=== PATIENT | male | born 1960 | race Caucasian/White ===

== ENCOUNTER 2018-05-07 14:49 | Inpatient (IN) | payer BC, SELFPAY ==
[2018-05-07 14:50] VITALS: BP 137/76; PULSE 108; RESP 16; TEMP 36.2; BMI 38.5
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
[2018-05-07] MEDS: 0.9% Normal Saline 1,000 ML 1000 ML IV (15:52)
[2018-05-07 15:58] LABS: Absolute Lymphocyte Count 1.51 X10^3/ul (0.83-4.51); Absolute Neutrophil Count 6.3 X10^3/uL (2.0-7.7); Basophil# 0.04 X10^3/uL; Basophil% 0.5 % (0-1); Eosinophil# 0.08 X10^3/uL; Hematocrit 41.8 % (40-54); Hemoglobin 13.7 g/dl (13.0-16.5); Lymphocyte # 1.51 X10^3/ul (4.0); Mean Corp Hgb Conc 32.8 g/gl (32-36); Mean Corpuscular Hgb 30.4 pg (27.0-32.0); Mean Corpuscular Volume 92.7 fL (80-94); Mean Platelet Vol. 9.5 fl (6.2-12.0); Monocyte# 0.51 X10^3/uL; Monocyte% 6.1 % (0-10); Neutrophil # 6.26 X10^3/uL (2.7-7.7); Neutrophil % 74.3 % (47-70); Platelet Count 225 K/mm3 (150-450); RBC Distribution Width CV 12.6 % (11.6-14.6); RBC Distribution Width SD 42.7 fl (35.1-43.9); Red Blood Count 4.51 M/mm3 (4.6-6.2); White Blood Count 8.4 K/mm3 (4.4-11.0)
[2018-05-07 15:59] LABS: POSITIVE COUNT NO; POSITIVE DIFFERENTIAL NO; POSITIVE MORPHOLOGY NO
[2018-05-07 16:10] LABS: Anion Gap 9 (5-15); BUN 12 mg/dL (7-18); BUN/Creat Ratio 11.1 RATIO (10-20); Calcium,Total 8.7 mg/dL (8.5-10.1); Chloride 105 mmol/L (98-107); Creatinine, Serum 1.08 mg/dL (0.70-1.30); EST Glomerular Filtration Rate 75 mL/min (>60); Erythrocyte Sedimentation Rate 67 mm/hr (0-20); Est Glom Filt Rate - Afr Amer 91 mL/min (>60); Estimated Creatinine Clearance 74.77 ml/min; Glucose 198 mg/dL (74-106); Potassium 4.3 mmol/L (3.5-5.1); Sodium Level 141 mmol/L (136-145)
[2018-05-07 16:13] LABS: Lactic Acid 1.5 mmol/L (0.4-2.0)
[2018-05-07 17:54] VITALS: BP 159/88; PULSE 68; RESP 18; O2SAT 98
--- NOTE | 2018-05-07 18:00 | NURSING ---
DR ALBERT IN SEEING PT. NO ORDERS FOR DRSG FOR NOW. STATED, PABLO. ITS DRY GANGRENE TALKING WITH PT AND REGARDING REAL NEED OF PROB TOE AMPUTATION. NO DRNG TO RT LAT PINKY TOE OR OTHER TO WOUNDS.
--- NOTE | 2018-05-07 18:08 | NURSING ---
aware per charge nurse ritika BRISENO and animal control supervisor destini venous duplex not done as only available until 1300.
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
[2018-05-07 18:25] VITALS: BMI 38.2; BMI 38.3
[2018-05-07 19:07] VITALS: BP 157/94; PULSE 98; RESP 20; TEMP 37.2; O2SAT 99
[2018-05-07 19:16] LABS: Hemoglobin A1c 10.1 % (4.2-6.3)
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
--- NOTE | 2018-05-07 20:57 | PHA.PHARE_ITS ---
Consult Pharmacy has been consulted to manage selected antiobiotic: Vancomycin Type of Consult: New start Suspected Infection: Skin/Soft tissue Labs: Sodium 141 mmol/L (136-145) 05/07/18 15:40 Potassium 4.3 mmol/L (3.5-5.1) 05/07/18 15:40 Chloride 105 mmol/L (98-107) 05/07/18 15:40 Carbon Dioxide 27.0 mmol/L (21.0-32.0) 05/07/18 15:40 Anion Gap 9 (5-15) 05/07/18 15:40 BUN 12 mg/dL (7-18) 05/07/18 15:40 Creatinine 1.08 mg/dL (0.70-1.30) 05/07/18 15:40 Est GFR (MDRD) Af Amer 91 mL/min (>60) 05/07/18 15:40 Est GFR (MDRD) Non-Af 75 mL/min (>60) 05/07/18 15:40 BUN/Creatinine Ratio 11.1 RATIO (10-20) 05/07/18 15:40 Glucose 198 mg/dL (74-106) H 05/07/18 15:40 Weight used for dosin.3 kg Estimated Creatinine Clearance: 74.77 Goal Trough: 10-15 mcg/mL Pharmacy Plan for Drug Dosing: Pharmacy Service will continue to monitor and adjust dosing as required. Medications Ampicillin Sodium/Sulbactam (Sodium 3 gm/ Sodium Chloride) 112 mls @ 150 mls/ hr IV Q6 HELENA Vancomycin HCl 1,250 mg/ (Sodium Chloride) 275 mls @ 167 mls/hr IV Q12H HELENA Discontinued Medications Vancomycin HCl 1,500 mg/ (Sodium Chloride) 530 mls @ 250 mls/hr IV X1 ONE Stop: 05/07/18 19:58 Last Admin: 05/07/18 18:20 Dose: 250 mls/hr Follow-Up Labs: Trough Vancomycin Labs to be done on [date and time ordered]: 05/09 @ 0662
[2018-05-07] MEDS: 0.9% Normal Saline 1,000 ML 100 ML IV (21:37)
[2018-05-07 21:55] LABS: Bedside Glucose 150 mg/dL (70-110)
[2018-05-07] MEDS: Insulin Lispro 100 UNIT/ML INSULN.PEN SC (22:14)
[2018-05-08] VITALS: BP 136/68; PULSE 86; RESP 18; TEMP 37.3; O2SAT 99
[2018-05-08 03:51] LABS: Bedside Glucose 151 mg/dL (70-110)
[2018-05-08 06:00] VITALS: BP 144/81; PULSE 87; RESP 16; TEMP 36.9; O2SAT 98
[2018-05-08 06:13] LABS: Absolute Lymphocyte Count 1.56 X10^3/ul (0.83-4.51); Absolute Neutrophil Count 4.5 X10^3/uL (2.0-7.7); Basophil# 0.03 X10^3/uL; Basophil% 0.4 % (0-1); Eosinophil# 0.16 X10^3/uL; Eosinophils% 2.3 % (0-5); Hematocrit 42.6 % (40-54); Hemoglobin 13.9 g/dl (13.0-16.5); Lymphocyte # 1.56 X10^3/ul (4.0); Lymphocyte % 22.7 % (19-41); Mean Corp Hgb Conc 32.6 g/gl (32-36); Mean Corpuscular Hgb 30.3 pg (27.0-32.0); Mean Corpuscular Volume 92.8 fL (80-94); Mean Platelet Vol. 9.2 fl (6.2-12.0); Monocyte# 0.56 X10^3/uL; Monocyte% 8.2 % (0-10); Neutrophil # 4.54 X10^3/uL (2.7-7.7); Neutrophil % 66.1 % (47-70); Platelet Count 226 K/mm3 (150-450); RBC Distribution Width CV 12.6 % (11.6-14.6); Red Blood Count 4.59 M/mm3 (4.6-6.2); White Blood Count 6.9 K/mm3 (4.4-11.0)
[2018-05-08 06:24] LABS: POSITIVE COUNT NO; POSITIVE DIFFERENTIAL NO; POSITIVE MORPHOLOGY NO
[2018-05-08 06:50] LABS: Anion Gap 7 (5-15); BUN 11 mg/dL (7-18); Calcium,Total 8.5 mg/dL (8.5-10.1); Chloride 106 mmol/L (98-107); Creatinine, Serum 0.78 mg/dL (0.70-1.30); EST Glomerular Filtration Rate 109 mL/min (>60); Est Glom Filt Rate - Afr Amer 132 mL/min (>60); Estimated Creatinine Clearance 103.53 ml/min; Glucose 163 mg/dL (74-106); Potassium 4.2 mmol/L (3.5-5.1); Sodium Level 141 mmol/L (136-145)
[2018-05-08 07:10] LABS: Bedside Glucose 168 mg/dL (70-110)
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
[2018-05-08] MEDS: Insulin Lispro 100 UNIT/ML INSULN.PEN SC ×4 (08:49→18:12)
[2018-05-08 08:50] LABS: Bedside Glucose 232 mg/dL (70-110)
--- NOTE | 2018-05-08 09:18 | NURSING ---
explained purpose of lovenox, lisinipril and pepcid, pt refusing all. states he does not like blood thinners and does not believe in bp meds. dr narvaez aware
[2018-05-08 09:19] VITALS: BP 135/85; PULSE 95; RESP 18; TEMP 37.2; O2SAT 95
[2018-05-08] MEDS: 0.9% Normal Saline 1,000 ML 100 ML IV (10:52)
[2018-05-08 11:21] VITALS: O2SAT 95
[2018-05-08 12:45] LABS: Bedside Glucose 253 mg/dL (70-110)
--- NOTE | 2018-05-08 13:14 | PCA ---
PT OUT WALKING IN THE [place]
--- NOTE | 2018-05-08 13:56 | CASEMGMT ---
KIKA ROD Assessment completed. See Link. -Pt to have further testing, possible surgery on foot. Is noncompliant with diabetes and nonweight bearing on toes. Discussed PT/OT to assist with teaching of ambulation and may recommend assistive device with ambulation. Pt very irritated with any mention of DME. RN VIOLA let pt know that CM is available if there are any dc needs that arise. appears to be willing to provide assistance at home.
[2018-05-08 14:39] VITALS: BP 139/81; PULSE 75; RESP 16; TEMP 36.8; O2SAT 99
[2018-05-08] MEDS: Insulin Lispro 100 UNIT/ML INSULN.PEN 10 UNIT SC ×2 (14:45→18:11)
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
--- NOTE | 2018-05-08 16:39 | PCA ---
therapy working with pt
[2018-05-08 17:41] LABS: M R Staph aureus DNA By PCR Negative (Negative); Probe Check PASS; Specimen Processing Control PASS; Staph aureus DNA By PCR POSITIVE (Negative)
[2018-05-08 18:26] LABS: Bedside Glucose 233 mg/dL (70-110)
[2018-05-08 22:43] VITALS: BP 128/69; PULSE 79; RESP 18; TEMP 37.1; O2SAT 96
[2018-05-08 23:06] LABS: Bedside Glucose 104 mg/dL (70-110)
[2018-05-09] MEDS: 0.9% Normal Saline 1,000 ML 100 ML IV (01:33)
[2018-05-09 04:43] VITALS: BP 128/69; PULSE 82; RESP 16; TEMP 37.1; O2SAT 98
--- NOTE | 2018-05-09 05:37 | NURSING ---
Rewrapped dressings on feet. Gave pt. surgical shoes.
[2018-05-09 06:16] LABS: Anion Gap 4 (5-15); BUN 12 mg/dL (7-18); BUN/Creat Ratio 15.4 RATIO (10-20); Calcium,Total 8.8 mg/dL (8.5-10.1); Chloride 106 mmol/L (98-107); Creatinine, Serum 0.78 mg/dL (0.70-1.30); EST Glomerular Filtration Rate 110 mL/min (>60); Est Glom Filt Rate - Afr Amer 132 mL/min (>60); Estimated Creatinine Clearance 103.53 ml/min; Glucose 148 mg/dL (74-106); Potassium 4.2 mmol/L (3.5-5.1); Sodium Level 139 mmol/L (136-145)
[2018-05-09 06:19] LABS: Vancomycin, Trough Level 7.2 ug/mL (5.0-15.0)
[2018-05-09 06:36] LABS: Absolute Lymphocyte Count 2.15 X10^3/ul (0.83-4.51); Absolute Neutrophil Count 4.3 X10^3/uL (2.0-7.7); Basophil# 0.05 X10^3/uL; Basophil% 0.7 % (0-1); Eosinophils% 2.8 % (0-5); Hematocrit 43.4 % (40-54); Hemoglobin 14.1 g/dl (13.0-16.5); Lymphocyte # 2.15 X10^3/ul (4.0); Lymphocyte % 30.2 % (19-41); Mean Corp Hgb Conc 32.5 g/gl (32-36); Mean Corpuscular Hgb 30.1 pg (27.0-32.0); Mean Corpuscular Volume 92.5 fL (80-94); Mean Platelet Vol. 9.7 fl (6.2-12.0); Monocyte# 0.44 X10^3/uL; Monocyte% 6.2 % (0-10); Neutrophil # 4.26 X10^3/uL (2.7-7.7); Neutrophil % 59.7 % (47-70); Platelet Count 243 K/mm3 (150-450); RBC Distribution Width CV 12.9 % (11.6-14.6); RBC Distribution Width SD 42.9 fl (35.1-43.9); Red Blood Count 4.69 M/mm3 (4.6-6.2); White Blood Count 7.1 K/mm3 (4.4-11.0)
[2018-05-09 06:37] LABS: POSITIVE COUNT NO; POSITIVE DIFFERENTIAL NO; POSITIVE MORPHOLOGY NO
[2018-05-09 07:25] VITALS: O2SAT 95
[2018-05-09 07:41] LABS: Bedside Glucose 158 mg/dL (70-110)
[2018-05-09 07:43] VITALS: BP 125/71; PULSE 71; RESP 16; TEMP 36.7; O2SAT 97
[2018-05-09] MEDS: Insulin Lispro 100 UNIT/ML INSULN.PEN 10 UNIT SC ×2 (08:02→12:28)
[2018-05-09] MEDS: Insulin Lispro 100 UNIT/ML INSULN.PEN SC ×2 (08:02→12:28)
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
--- NOTE | 2018-05-09 12:27 | PCM.DC.POD ---
Discharge Activity: - - Must avoid complete weight bearing and limit to heel only per Dr. Craft request. Recommend routine elevation both lower extremities above your heart and when seated. Continue dressing care per Dr. Craft direction. Weight Bearing Status: Partial weight bearing Keep extremity elevated above heart level: Legs Call your doctor if your incision/area has: Continuous Slow Oozing, Sudden Increased Bleeding, Increased Pain/ Swelling, Increased Redness, Foul Smelling Discharge, Swelling at the incision site Call your doctor if you observe: Fever of 101 or Higher, Inability to urinate, Inability to have a bowel movement, Shortness of breath, Dizziness, Chest pain, Uncontrolled pain Additional Dressing/Incision Instructions:: [place] betadine solution to right 5th toe and in between 4th and 5th toes on the right foot. [place] betadine solution to all wound site on both feet every day, apply overlying gauze dressing. Do not get wet otherwise, must keep dry. Instructions: What Is Type 2 Diabetes?, How to Check Your Blood Sugar, Diabetes: Treating Minor Foot Infections, Diabetes: Treating Severe Foot Infections, Using Injected Insulin, Types of Insulin, Healthy Meals for Diabetes, Diabetes: Understanding Carbohydrates, Diabetes: Keeping Feet Healthy, Diabetes: Inspecting Your Feet, Why Do You Smoke?, Planning to Quit Smoking, Getting Support for Quitting Smoking, Coping with Smoking Withdrawal, Discharge Instructions for Diabetic Foot Ulcers, Your Diabetes Foot Care Program Allergies/Adverse Reactions: Allergies Penicillins [PCN] Allergy (Verified 05/07/18 18:48) Unknown his mom thinks he is allergic. but never had it. Medications to take at Discharge Amox/Clavulanate Tablet [Augmentin Tablet] 875 mg PO Q12H #20 tab 05/09/18 Aspirin [Aspirin, Baby] 81 mg PO DAILY@0800 #30 tab.chew 05/09/18 Doxycycline 100 mg PO BID #20 cap 05/09/18 Insulin Glargine [Lantus SoloStar Pen] 55 units SC BID #1 pen 05/09/18 Insulin Lispro [Humalog KwikPen] 10 unit SC TIDAC #1 insuln.pen 05/09/18 Insulin Lispro [Humalog KwikPen] See Protocol SC ACHS #1 insuln.pen 05/09/18 Nutritional Supplement [Tripp - ORANGE FLAVOR] 1 packet PO BIDCM #60 packet 08/21/18 Oxycodone [Oxyir] 5 mg PO Q4H PRN PRN 5 Days #30 tablet 05/09/18 The following prescriptions were given: Oxycodone [Oxyir] 5 mg PO Q4H PRN PRN 5 Days #30 tablet PRN Reason: Moderate Pain (pain scale 4-5) Amox/Clavulanate Tablet [Augmentin Tablet] 875 mg PO Q12H #20 tab Aspirin [Aspirin, Baby] 81 mg PO DAILY@0800 #30 tab.chew Insulin Lispro [Humalog KwikPen] 10 unit SC TIDAC #1 insuln.pen Insulin Lispro [Humalog KwikPen] See Protocol SC ACHS #1 insuln.pen Doxycycline 100 mg PO BID #20 cap Insulin Glargine [Lantus SoloStar Pen] 55 units SC BID #1 pen Nutritional Supplement [Tripp - ORANGE FLAVOR] 1 packet PO BIDCM #60 packet Primary Care Physician: OLY WILLOUGHBY [Primary Care Provider] - Please follow up with your Primary Care Physician in: Follow-up within 3-5 days to review admission. Test Results: Test results from this visit will be discussed in further detail at your follow-up appointment, if applicable. Please Follow Up With: Oly Craft DPM - Office is located at [address] [place] [address], [place] [address], [place], [place] When: Follow-up with Dr. Craft on 05/15/18 in his office. Please Follow Up With: Dennis Pisano DPM When: Follow-up in the [facility] Care Center on 05/17/18 with podiatry. Please Follow Up With: France Kingston NP-C When: Please contact office to arrange follow-up, prefer within 3-5 days. Proposed Discharge Date: 05/09/18
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
[2018-05-09 13:02] LABS: Bedside Glucose 237 mg/dL (70-110)
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
--- NOTE | 2018-05-09 20:34 | LEAS ---
Arterial Study - Arterial Study Arterial Study: This is a 57-year-old male with a history of diabetes mellitus and smoking. He presents with a diabetic foot infection and gangrene of his toes. Suspecting the presence of atherosclerotic peripheral arterial occlusive disease, the patient was brought to the noninvasive vascular laboratory at this time for the purpose of bilateral noninvasive lower extremity arterial assessment. Doppler signal assessment was used to evaluate the pulses at ankle level bilaterally. On the right, the posterior tibial pulse was triphasic. The right dorsalis pedis pulse was biphasic. The left posterior tibial and dorsalis pedis pulses were triphasic. Segmental limb pressures were obtained bilaterally. The right ankle pressure, as determined by posterior tibial pulse, could not be determined due to the noncompressibility of the vasculature. The right ankle pressure, as determined by dorsalis pedis pulse, was measured at 165 mmHg. The right digital pressure was measured at 78 mmHg. The left ankle pressure, as determined by posterior tibial pulse, could not be determined due to the noncompressibility of the vasculature. The left ankle pressure, as determined by dorsalis pedis pulse, was measured at 164 mmHg. The left digital pressure was measured at 114 mmHg. Pulse-volume recordings were obtained bilaterally and segmentally. Waveform amplitudes appeared to be satisfactory at low thigh, calf, and ankle levels bilaterally. The right digital waveform was mildly diminished. The left digital waveform was normal. Resting ankle-brachial indices were calculated bilaterally. The resting right ankle-brachial index was calculated to be 1.15. The resting left ankle-brachial index was calculated to be 1.14. Digital-brachial indices were calculated bilaterally. The right digital-brachial index was calculated to be 0.54. The left digital-brachial index was calculated to be 0.79. Impression: Based upon the findings of this resting noninvasive lower extremity arterial study, arterial perfusion appears to be normal to ankle level bilaterally. Triphasic and biphasic waveforms were noted at ankle level on the right. Triphasic waveforms were noted at ankle level on the left. Resting ankle-brachial indices were bilaterally normal. The right digital-brachial index was mildly diminished, suggestive of mild, distal, small-vessel arterial occlusive disease in the right lower extremity. The left digital-brachial index is normal, suggesting relatively normal arterial perfusion at digital level in the left lower extremity.
== END 2018-05-09 12:55 | disposition home or self-care (01) | DRG 935 ==
LOC: ED 15:55 → MS3 18:06
PROVIDERS: Podiatrist; Admitting Provider Family Medicine; Emergency Provider Emergency Medicine; Family Provider Hospitalist; PCP Hospitalist; Visit Provider Family Medicine
DX: T25.031A Burn of unspecified degree of right toe(s) (nail), initial encounter (principal); I96 Gangrene, not elsewhere classified; T25.032A Burn of unspecified degree of left toe(s) (nail), initial encounter; T79.9XXA Unspecified early complication of trauma, initial encounter; X19.XXXA Contact with other heat and hot substances, initial encounter; Y92.818 Other transport vehicle as the place of occurrence of the external cause; X03.8XXA Other exposure to controlled fire, not in building or structure, initial encounter; Y92.833 Campsite as the place of occurrence of the external cause; E11.42 Type 2 diabetes mellitus with diabetic polyneuropathy; E11.65 Type 2 diabetes mellitus with hyperglycemia; Z79.4 Long term (current) use of insulin; E66.9 Obesity, unspecified; Z68.38 Body mass index [BMI] 38.0-38.9, adult; E11.628 Type 2 diabetes mellitus with other skin complications; L03.031 Cellulitis of right toe; R03.0 Elevated blood-pressure reading, without diagnosis of hypertension; Z72.0 Tobacco use
CPT/HCPCS: 36415; 73630; 80048; 80202; 82962; 83036; 83605; 83735; 85025; 85652; 86140; 87040; 87070; 87075; 87077; 87186; 87205; 87640; 93923; 93971; 97161; 97802; 99282; J7030; J7040; J7050; A4216; J0295

== ENCOUNTER 2018-05-18 10:19 | Outpatient (RCR) | payer BC, SELFPAY ==
[2018-05-18 11:00] VITALS: BP 152/88; PULSE 86; RESP 18; TEMP 36.1
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
== END 2018-05-19 23:59 ==
LOC: WC 10:19
PROVIDERS: Family Provider Family Medicine; PCP Family Medicine; Visit Provider Podiatrist
DX: E11.621 Type 2 diabetes mellitus with foot ulcer (principal); E11.42 Type 2 diabetes mellitus with diabetic polyneuropathy; E11.51 Type 2 diabetes mellitus with diabetic peripheral angiopathy without gangrene; L97.522 Non-pressure chronic ulcer of other part of left foot with fat layer exposed; Z91.19 Patient's noncompliance with other medical treatment and regimen; E11.65 Type 2 diabetes mellitus with hyperglycemia; F17.290 Nicotine dependence, other tobacco product, uncomplicated
CPT/HCPCS: 11042; 99205; 99213; G0463

== ENCOUNTER → 2018-06-01 14:04 | Outpatient (CLI) | payer BC, SELFPAY ==
--- NOTE | 2018-06-01 14:12 | RAD_ITS ---
STUDY: X-RAY - RIGHT FOOT CLINICAL: Pain and burning to toes. TECHNIQUE: 3 view(s) of the foot. COMPARISON: Radiographs . FINDINGS: There is a plantar calcaneal enthesophyte. There is pes planus. Normal visualized subtalar, talonavicular, calcaneocuboid, tarsal and tarsometatarsal articulations. Normal metatarsi. Normal metatarsophalangeal joint of the great toe. Normal tibial and fibular sesamoid bones. Normal interphalangeal joint of the great toe. Normal phalanges of the great toe. Normal second through fifth metatarsophalangeal joints. There is mild joint space narrowing of the second distal interphalangeal joint. There is vascular calcification. RAD/Foot min 3 Views IMPRESSION: Mild arthrosis of the second distal interphalangeal joint. Vascular calcification. No interval change. Electronically Signed: Torrey Joshua MD at 16:00 EDT Tel , Service support ,
[2018-06-01 15:33] LABS: Absolute Lymphocyte Count 1.47 X10^3/ul (0.83-4.51); Absolute Neutrophil Count 7.2 X10^3/uL (2.0-7.7); Basophil# 0.02 X10^3/uL; Basophil% 0.2 % (0-1); Eosinophil# 0.03 X10^3/uL; Eosinophils% 0.3 % (0-5); Hematocrit 42.2 % (40-54); Hemoglobin 13.9 g/dl (13.0-16.5); Lymphocyte # 1.47 X10^3/ul (4.0); Lymphocyte % 15.7 % (19-41); Mean Corp Hgb Conc 32.9 g/gl (32-36); Mean Corpuscular Hgb 30.2 pg (27.0-32.0); Mean Corpuscular Volume 91.7 fL (80-94); Mean Platelet Vol. 9.9 fl (6.2-12.0); Monocyte# 0.64 X10^3/uL; Monocyte% 6.8 % (0-10); Neutrophil # 7.16 X10^3/uL (2.7-7.7); Neutrophil % 76.6 % (47-70); Platelet Count 205 K/mm3 (150-450); White Blood Count 9.4 K/mm3 (4.4-11.0)
[2018-06-01 15:42] LABS: POSITIVE COUNT NO; POSITIVE DIFFERENTIAL NO; POSITIVE MORPHOLOGY NO
[2018-06-01 15:44] LABS: BUN 15 mg/dL (7-18); Creatinine, Serum 0.79 mg/dL (0.70-1.30); Glucose 113 mg/dL (74-106)
[2018-06-01 15:45] LABS: ALB/GLOB Ratio 0.9 RATIO (0.9-2.4); AST(SGOT) 14 U/L (15-37); Alanine Aminotransfer ALT/SGPT 21 U/L (16-61); Albumin, Serum 3.6 g/dL (3.2-5.0); Alkaline Phosphatase 80 U/L (45-117); Anion Gap 8 (5-15); CRP 7.69 mg/L (0.0-3.0); Calcium,Total 9.3 mg/dL (8.5-10.1); Chloride 104 mmol/L (98-107); EST Glomerular Filtration Rate 108 mL/min (>60); Est Glom Filt Rate - Afr Amer 131 mL/min (>60); Globulin 4.1 g/dL (2.2-4.2); Potassium 4.2 mmol/L (3.5-5.1); Protein, Total 7.7 g/dL (6.4-8.2); Sodium Level 140 mmol/L (136-145)
[2018-06-01 16:02] LABS: Erythrocyte Sedimentation Rate 36 mm/hr (0-20)
[2018-06-01 16:10] LABS: Hemoglobin A1c 9.1 % (4.2-6.3)
== END ==
PROVIDERS: Family Provider Family Medicine; PCP Family Medicine; Visit Provider Podiatrist
DX: M86.9 Osteomyelitis, unspecified (principal)
CPT/HCPCS: 36415; 73630; 80053; 83036; 85025; 85652; 86140

== ENCOUNTER 2018-06-05 09:20 | Inpatient (IN) | payer BC, SELFPAY ==
[2018-06-05] VITALS (9 sets, daily range): BP systolic 106–158; BP diastolic 58–90; PULSE 77–97; RESP 16–19; TEMP 36.2–37.4; O2SAT 96–98; BMI 39.9; BMI 40.0
--- NOTE | 2018-06-05 07:30 | BON_PTH ---
PATIENT: OLY SMITH LOC: MS3 U#:[id number] AGE/SX: 57/M ROOM: FL319 RE06/05/[address]: Dr. Matias Gan DO : 1960 BED: 1 DIS: 06/08/2018 SPEC #: [id number] RECD: 06/06/18 09:09 STATUS: CIPRIANO REQ #: [id number] RHETT: 06/05/18 07:[address]: Oly Craft DEPT: SURGICAL PATHOLOGY RECD BY: Jose Monteiro ENTERED: 06/06/18 11:12 SP TYPE: Bone OTHR DR: MD Dr. Yinka Kurtz MD Dr. Jeanna Fascione, DPM MD Dr. Matias Bui DO Dr. Robert Leininger, MD Tissues: A - Bone of foot, NOS B - Toe, NOS Procedures: Decalcification bone/plaque Special Stain Group I Surgery Specimen Level III Surgery Specimen Level IV AFB Stain (control) GMS Stain (control) Comments: @ Ordering doctor for DEC edited from to @ by ESTHELA at 06/06/18 1438 @ Ordering doctor for SUIV edited from to @ by ESTHELA at 06/06/18 1438 @ Submitting doctor edited from to DR.[email or web address] Bashir PROCTOR at 06/06/18 1437 HEADER OPERATION: Amputation toe, fifth metatarsal, I & D right foot PRE-OP DIAGNOSIS: Gangrene fifth right toe TISSUE SUBMITTED: A ? Fifth metatarsal clearance fragment, B - Fifth metatarsal toe MICROSCOPIC DIAGNOSIS A. Fifth metatarsal clearance fragment: Pieces of bone with reactive changes, negative for acute osteomyelitis. B. Amputation toe, fifth metatarsal: Focal gangrenous ulceration and associated acute inflammation and abscess formation. Underlying bone with acute osteomyelitis. Special stains for acid fast bacilli and fungi are negative for organisms; matched controls are appropriate. SJ:raul 06/09/18 MICROSCOPIC DESCRIPTION Slides are reviewed. GROSS DESCRIPTION A - Received in fixative is one container labeled with the patient's name and designated fifth metatarsal clearance fragment. The specimen consists of multiple fragments of bone that in aggregate measure 1.5 x 0.5 x 0.3 cm. The entire specimen is submitted in one cassette after decalcification. B - Received in fixative is one container labeled with the patient's name and designated fifth metatarsal toe. The specimen consists of a portion of toe measuring 4 x 2.5 x 1.5 cm. The skin at the tip of the toe shows ulceration and gangrenous area measuring 3 x 2 x 1.5 cm. There is a gangrenous area also present at the dorsal surface of toe and also focally extending to the plantar surface of the toe. The cutaneous resection margins appear uninvolved. The nail is not seen in the submitted specimen. Mobile Sales Technician sections are submitted in three cassettes as follows: 1 ? ulcerated and gangrenous area, 2 & 3 ? bone including ulcerated and gangrenous area after decalcification. / SJ:rg 06/06/18 TC:2 CPT: 14552, 81000, 05618 x2, 29355 x2
--- NOTE | 2018-06-05 11:45 | EKG12_ITS ---
Test Reason : PRE-OP Blood Pressure : / mmHG Vent. Rate : 087 BPM Atrial Rate : 087 BPM P-R Int : 134 ms QRS Dur : 148 ms QT Int : 408 ms P-R-T Axes : 027 -09 015 degrees QTc Int : 490 ms Normal sinus rhythm Right bundle branch block Abnormal ECG No previous ECGs available Confirmed by ERMA GROVER, GIULIA ([id number]), news videotape editor ANGELO FREGOSO ([id number]) on 06/07/2018 3:30:59 PM Referred By: Melita Griffith Confirmed By:GIULIA RITCHIE MD
--- NOTE | 2018-06-05 11:54 | PCM.RX.CS ---
Consult Pharmacy has been consulted to manage selected antiobiotic: Vancomycin Type of Consult: New start Suspected Infection: Skin/Soft tissue Weight used for dosin kg Estimated Creatinine Clearance: > 100 Goal Trough: 10-15 mcg/mL Pharmacy Plan for Drug Dosing: Patient previously maintained on vancomycin 1250mg IV q12h with subtherapeutic level. Recommend increase to 1500mg IV q12h (1750mg IV x1 load), check trough prior to 4th dose per protocol. Pharmacy Service will continue to monitor and adjust dosing as required. Follow-Up Labs: Trough Vancomycin - 06/06/18 @ 2130
[2018-06-05 12:36] LABS: Absolute Lymphocyte Count 1.45 X10^3/ul (0.83-4.51); Absolute Neutrophil Count 7.4 X10^3/uL (2.0-7.7); Basophil# 0.02 X10^3/uL; Basophil% 0.2 % (0-1); Eosinophil# 0.47 X10^3/uL; Eosinophils% 4.6 % (0-5); Hemoglobin 13.7 g/dl (13.0-16.5); Lymphocyte # 1.45 X10^3/ul (4.0); Lymphocyte % 14.3 % (19-41); Mean Corp Hgb Conc 33.4 g/gl (32-36); Mean Corpuscular Hgb 30.1 pg (27.0-32.0); Mean Corpuscular Volume 90.1 fL (80-94); Mean Platelet Vol. 9.4 fl (6.2-12.0); Monocyte# 0.78 X10^3/uL; Monocyte% 7.7 % (0-10); Neutrophil # 7.36 X10^3/uL (2.7-7.7); Neutrophil % 72.7 % (47-70); POSITIVE DIFFERENTIAL NO; Platelet Count 228 K/mm3 (150-450); RBC Distribution Width CV 12.7 % (11.6-14.6); RBC Distribution Width SD 41.7 fl (35.1-43.9); Red Blood Count 4.55 M/mm3 (4.6-6.2); White Blood Count 10.1 K/mm3 (4.4-11.0)
[2018-06-05 12:37] LABS: Erythrocyte Sedimentation Rate 80 mm/hr (0-20); POSITIVE COUNT NO; POSITIVE MORPHOLOGY NO
[2018-06-05 13:03] LABS: Hemoglobin A1c 8.7 % (4.2-6.3)
[2018-06-05 13:23] LABS: ALB/GLOB Ratio 0.7 RATIO (0.9-2.4); AST(SGOT) 12 U/L (15-37); Alanine Aminotransfer ALT/SGPT 19 U/L (16-61); Albumin, Serum 3.2 g/dL (3.2-5.0); Alkaline Phosphatase 92 U/L (45-117); Anion Gap 9 (5-15); BUN 22 mg/dL (7-18); BUN/Creat Ratio 26.6 RATIO (10-20); Calcium,Total 9.3 mg/dL (8.5-10.1); Chloride 100 mmol/L (98-107); Creatinine, Serum 0.83 mg/dL (0.70-1.30); EST Glomerular Filtration Rate 102 mL/min (>60); Est Glom Filt Rate - Afr Amer 124 mL/min (>60); Estimated Creatinine Clearance 97.29 ml/min; Globulin 4.8 g/dL (2.2-4.2); Glucose 90 mg/dL (74-106); Potassium 3.7 mmol/L (3.5-5.1); Sodium Level 136 mmol/L (136-145)
--- NOTE | 2018-06-05 14:18 | NURSING ---
called report to Mona in [facility].
[2018-06-05] MEDS: Bupivacaine Mpf 0.5% 30 ML VIAL (14:50)
--- NOTE | 2018-06-05 15:00 | RAD_ITS ---
STUDY: X-RAY - RIGHT FOOT CLINICAL: Male, 57 years old. Documentation of fluoroscopic radiation use during orthopedic procedure. TECHNIQUE: 9 view(s) of the foot. COMPARISON: Preoperative radiographs of the right foot dated June 01, 2018. FINDINGS: Total exposure time: 13 seconds. Longest single exposure: 0.02 seconds Total DAP (cGy*cm2): 0.7003 Total Air Kerma (mGy): 0.417 For additional details, please see operative report. There is absence of normal soft tissues of the distal fifth toe. RAD/Foot min 3 Views IMPRESSION: Documentation of fluoroscopic radiation dose during orthopedic surgery. Electronically Signed: Joselyn Salter MD at 5:41 EDT , Service support ,
[2018-06-05] MEDS: Piperacil/Tazobactam 3.375 GM/50 ML ML IV ×2 (15:58→23:37)
--- NOTE | 2018-06-05 16:09 | RAD_ITS ---
STUDY: X-RAY - RIGHT FOOT CLINICAL: Male, 57 years old. Post operative TECHNIQUE: 3 view(s) of the foot. COMPARISON: June 01, 2018 right foot x-ray FINDINGS: There is a plantar calcaneal spur. Normal visualized subtalar, talonavicular, calcaneocuboid, tarsal and tarsometatarsal articulations. Normal metatarsi. Normal metatarsophalangeal joint of the great toe. Normal tibial and fibular sesamoid bones. Normal interphalangeal joint of the great toe. Normal phalanges of the great toe. Normal second through fifth metatarsophalangeal joints. Since prior study there is been interval amputation of the third digit at the metatarsophalangeal joint. There is chronic subluxation/angulation of the second digit at the distal interphalangeal joint. The soft tissue structures are unremarkable. RAD/Foot min 3 Views IMPRESSION: Interval amputation of the fifth digit at the metatarsophalangeal joint. Electronically Signed: Sharmila Foreman MD at 0:27 EDT Tel , Service support ,
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
[2018-06-05 16:15] LABS: Bedside Glucose 85 mg/dL (70-110)
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
[2018-06-05 16:50] LABS: Bedside Glucose 82 mg/dL (70-110)
--- NOTE | 2018-06-05 16:53 | PCM.HP.STD ---
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 Today in the office toe noted to be gangrenous and wet. Patient has also been having increasing pain, redness and swelling of the foot and leg as well. There is increasing malodor as well. He denies any fever or chills or loss of appetite. Denies any nausea or vomiting. Patient is planned for surgery today - amputation of the involved toe [] Past Medical History Past Medical History (Chronic Problems): Chronic Problems Delayed wound healing (Chronic) PVD (peripheral vascular disease) (Chronic) Ulcer of right foot with necrosis of muscle (Chronic) Chronic ulcer of left foot with fat layer exposed (Chronic) Hammer toe of right foot (Chronic) Gangrene (Chronic) Type 2 diabetes mellitus with diabetic polyneuropathy (Chronic) Diabetes mellitus type II, uncontrolled (Chronic) Obesity (BMI 30-39.9) (Chronic) Tobacco use (Chronic) Allergies No Known Allergies Allergy (Verified 06/05/18 10:02) Home Medications: Ambulatory Orders Medication Instructions Recorded Amox/Clavulanate Tablet [Augmentin 875 mg PO Q12H #20 tab 05/09/18 Tablet] Nutritional Supplement [Tripp - 1 packet PO BIDCM #60 packet 05/09/18 [facility]] Ciprofloxacin [Cipro] 500 mg PO BID 06/05/18 Insulin Aspart [Novolog Flexpen See Protocol SC TIDCM 06/05/18 ([facility])] Insulin Glargine [Lantus SoloStar 80 units SC BID 06/05/18 Pen] Oxycodone [Oxyir] 5 mg PO Q6H PRN PRN 06/05/18 Surgical History: no surgical history Smoking Status: Current some day smoker - *Family History Maternal History Items: - - Other with a history of colon cancer, metastatic. Paternal History Items: - - Father with a history of prostate cancer. Review of Systems Constitutional: Denies: Anorexia, Chills, Fever, Night Sweats, Malaise, Weakness, Fatigue Cardiovascular: Reports: Edema. Denies: Chest Pain, Chest Pressure, Orthopnea Respiratory: Denies: Cough, Pleuritic Pain, Shortness of Breath, Shortness of breath at rest Gastrointestinal: Denies: Abdominal Pain, Nausea, Vomiting Comment: the rest of the ROS was essentially negative VTE Information - Inpt Only VTE Present on Admission: No - Physical Exam General: Alert, Oriented x3, Cooperative, No apparent distress, Well developed, Well nourished HEENT: Atraumatic, PERRLA Oral: Moist Mucosa Neck: Supple, No JVD Lungs: Clear to auscultation, Normal air movement, No rhonchi, No wheeze, No rales Cardiovascular: Regular rate, Regular Rhythm, Normal S1, Normal S2, No murmurs, No Ectopic Activity Abdomen: Soft, Non Tender, Non-Distended, No Hepato-splenomegaly Extremities: No clubbing, No cyanosis - 5th digit on the right foot gangrenous, wet and malodorous, tenderness on squeezing the foot and leg up to the knee, swelling, warmth extending up to knee as well, - - 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 the left but on the right unable to feeling likely due to swelling Musculoskeletal: No Muscle Wasting Neurological: Cranial nerves II-XII grossly intact, Deep Tendon Reflexes 2+/4 and Symmetrical, Motor Exam 5/5 strength throughout Vital Signs Temp Pulse Resp BP Pulse Ox 97.1 F L 83 16 137/75 H 98 06/05/18 16:15 06/05/18 16:45 06/05/18 16:45 06/05/18 16:45 06/05/18 16:45 Oxygen Delivery Method Room Air Weight: 119.249 kg Body Mass Index (BMI) 39.9 Intake and Output for Last 24 Hours 06/03/18 06/04/18 06/05/18 23:59 23:59 23:59 Intake Total Balance Laboratory Tests Past 24 Hrs 06/05/18 06/05/18 06/05/18 12:20 12:20 12:20 WBC 10.1 RBC 4.55 L Hgb 13.7 Hct 41.0 MCV 90.1 MCH 30.1 MCHC 33.4 RDW 12.7 RDW Differential 41.7 Plt Count 228 MPV 9.4 Immature Gran % (Auto) 0.500 Neut % (Auto) 72.7 H Lymph % (Auto) 14.3 L Kay % (Auto) 7.7 Eos % (Auto) 4.6 Baso % (Auto) 0.2 Absolute Neuts (auto) 7.4 Absolute Lymphs (auto) 1.45 Total Counted Not Reportable ESR 80 H Sodium 136 Potassium 3.7 Chloride 100 Carbon Dioxide 27.0 Anion Gap 9 BUN 22 H Creatinine 0.83 Estim Creat Clear Calc 97.29 Est GFR (MDRD) Af Amer 124 Est GFR (MDRD) Non-Af 102 BUN/Creatinine Ratio 26.6 H Glucose 90 Hemoglobin A1c 8.7 H Calcium 9.3 Total Bilirubin 0.60 AST 12 L ALT 19 Alkaline Phosphatase 92 C-React Prot Ext Range 48.20 H Total Protein 8.0 Albumin 3.2 Globulin 4.8 H Albumin/Globulin Ratio 0.7 L POC Glucose 06/05/18 06/05/18 16:41 15:55 POC Glucose 82 85 Assessment/Plan All Active Problems Diabetic ulcer of left foot (Acute) Diabetic ulcer of right foot (Acute) Diabetic foot infection (Acute) 1. Diabetic neuropathic ulcer involving the 5th digit of the right foot, now with wet gangrene and secondary cellulitis spreading proximally. Will order MRI of foot just to r/o OM in the distal metatarsal. Dr. Abarca for podiatry consulted and planned for surgery - amputation of toe Will start on IV abx. Elevate RLE 2. Poorly controlled DM2. Will continue home regimen of insulin and accuchecks ac/hs 3. Painful diabetic distal sensory neuropathy. Will start patient on Neurontin for neuropathic pain Code Visit Inpatient E&M: 07868 Init Hosp L3
--- NOTE | 2018-06-05 16:58 | HP.PCM_ITS ---
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 Today in the office toe noted to be gangrenous and wet. Patient has also been having increasing pain, redness and swelling of the foot and leg as well. There is increasing malodor as well. He denies any fever or chills or loss of appetite. Denies any nausea or vomiting. Patient is planned for surgery today - amputation of the involved toe [] Past Medical History Past Medical History (Chronic Problems): Chronic Problems Delayed wound healing (Chronic) PVD (peripheral vascular disease) (Chronic) Ulcer of right foot with necrosis of muscle (Chronic) Chronic ulcer of left foot with fat layer exposed (Chronic) Hammer toe of right foot (Chronic) Gangrene (Chronic) Type 2 diabetes mellitus with diabetic polyneuropathy (Chronic) Diabetes mellitus type II, uncontrolled (Chronic) Obesity (BMI 30-39.9) (Chronic) Tobacco use (Chronic) Allergies No Known Allergies Allergy (Verified 06/05/18 10:02) Home Medications: Ambulatory Orders Medication Instructions Recorded Amox/Clavulanate Tablet [Augmentin 875 mg PO Q12H #20 tab 05/09/18 Tablet] Nutritional Supplement [Tripp - 1 packet PO BIDCM #60 packet 05/09/18 [place] [facility]] Ciprofloxacin [Cipro] 500 mg PO BID 06/05/18 Insulin Aspart [Novolog Flexpen See Protocol SC TIDCM 06/05/18 ([facility])] Insulin Glargine [Lantus SoloStar 80 units SC BID 06/05/18 Pen] Oxycodone [Oxyir] 5 mg PO Q6H PRN PRN 06/05/18 Surgical History: no surgical history Smoking Status: Current some day smoker - *Family History Maternal History Items: - - Other with a history of colon cancer, metastatic. Paternal History Items: - - Father with a history of prostate cancer. Review of Systems Constitutional: Denies: Anorexia, Chills, Fever, Night Sweats, Malaise, Weakness , Fatigue Cardiovascular: Reports: Edema. Denies: Chest Pain, Chest Pressure, Orthopnea Respiratory: Denies: Cough, Pleuritic Pain, Shortness of Breath, Shortness of breath at rest Gastrointestinal: Denies: Abdominal Pain, Nausea, Vomiting Comment: the rest of the ROS was essentially negative VTE Information - Inpt Only VTE Present on Admission: No - Physical Exam General: Alert, Oriented x3, Cooperative, No apparent distress, Well developed, Well nourished HEENT: Atraumatic, PERRLA Oral: Moist Mucosa Neck: Supple, No JVD Lungs: Clear to auscultation, Normal air movement, No rhonchi, No wheeze, No rales Cardiovascular: Regular rate, Regular Rhythm, Normal S1, Normal S2, No murmurs, No Ectopic Activity Abdomen: Soft, Non Tender, Non-Distended, No Hepato-splenomegaly Extremities: No clubbing, No cyanosis - 5th digit on the right foot gangrenous, wet and malodorous, tenderness on squeezing the foot and leg up to the knee, swelling, warmth extending up to knee as well, - - DPA and [employer] pulse easily felt on the left but on the right unable to feeling likely due to swelling Musculoskeletal: No Muscle Wasting Neurological: Cranial nerves II-XII grossly intact, Deep Tendon Reflexes 2+/4 and Symmetrical, Motor Exam 5/5 strength throughout Vital Signs Temp Pulse Resp BP Pulse Ox 97.1 F L 83 16 137/75 H 98 06/05/18 16:15 06/05/18 16:45 06/05/18 16:45 06/05/18 16:45 06/05/18 16:45 Oxygen Delivery Method Room Air Weight: 119.249 kg Body Mass Index (BMI) 39.9 Intake and Output for Last 24 Hours 06/03/18 06/04/18 06/05/18 23:59 23:59 23:59 Intake Total Balance Laboratory Tests Past 24 Hrs 06/05/18 06/05/18 06/05/18 12:20 12:20 12:20 WBC 10.1 RBC 4.55 L Hgb 13.7 Hct 41.0 MCV 90.1 MCH 30.1 MCHC 33.4 RDW 12.7 RDW Differential 41.7 Plt Count 228 MPV 9.4 Immature Gran % (Auto) 0.500 Neut % (Auto) 72.7 H Lymph % (Auto) 14.3 L [place] % (Auto) 7.7 Eos % (Auto) 4.6 Baso % (Auto) 0.2 Absolute Neuts (auto) 7.4 Absolute Lymphs (auto) 1.45 Total Counted Not Reportable ESR 80 H Sodium 136 Potassium 3.7 Chloride 100 Carbon Dioxide 27.0 Anion Gap 9 BUN 22 H Creatinine 0.83 Estim Creat Clear Calc 97.29 Est GFR (MDRD) Af Amer 124 Est GFR (MDRD) Non-Af 102 BUN/Creatinine Ratio 26.6 H Glucose 90 Hemoglobin A1c 8.7 H Calcium 9.3 Total Bilirubin 0.60 AST 12 L ALT 19 Alkaline Phosphatase 92 C-React Prot Ext Range 48.20 H Total Protein 8.0 Albumin 3.2 Globulin 4.8 H Albumin/Globulin Ratio 0.7 L POC Glucose 06/05/18 06/05/18 16:41 15:55 POC Glucose 82 85 Assessment/Plan All Active Problems Diabetic ulcer of left foot (Acute) Diabetic ulcer of right foot (Acute) Diabetic foot infection (Acute) 1. Diabetic neuropathic ulcer involving the 5th digit of the right foot, now with wet gangrene and secondary cellulitis spreading proximally. Will order MRI of foot just to r/o OM in the distal metatarsal. Dr. Abarca for podiatry consulted and planned for surgery - amputation of toe Will start on IV abx. Elevate RLE 2. Poorly controlled DM2. Will continue home regimen of insulin and accuchecks ac/hs 3. Painful diabetic distal sensory neuropathy. Will start patient on Neurontin for neuropathic pain Code Visit Inpatient E&M: 34604 Init Hosp L3
--- NOTE | 2018-06-05 17:33 | VDLE_ITS ---
Reason For Study: RLE SWELLING/PAIN RIGHT LEFT GSV is normal. GSV is normal. CFV is compressible, spontaneous, phasic, CFV is compressible, spontaneous, phasic, competent and demonstrates normal competent, and demonstrates normal augmentation. augmentation. FV is compressible, spontaneous, phasic, FV is compressible, spontaneous, phasic, competent and demonstrates normal competent and demonstrates normal augmentation. augmentation. POP V is compressible, spontaneous, phasic, POP V is compressible, spontaneous, phasic, competent and demonstrates normal competent and demonstrates normal augmentation. augmentation. T/P Trunk is compressible. T/P Trunk is compressible. PTV is compressible. PTV is compressible. RT PerV is compressible. LT PerV is compressible. Procedure Exam performed portable in patient room. A preliminary report was called and/or faxed to Charge nurse in [place]. Interpretation Summary Deep veins of the lower extremities are bilaterally patent and compressible segmentally. There is no evidence of deep vein thrombosis on either side. Valvular competence appears intact within the proximal deep venous systems bilaterally. The greater saphenous veins appear bilaterally patent and compressible segmentally. Ordering Physician: Bret Craft Referring Physician: MD Star Matias Performed By: Yeyo Hunt RVT and Student
[2018-06-05 17:41] LABS: Bedside Glucose 110 mg/dL (70-110)
[2018-06-05] MEDS: Insulin Lispro 100 UNIT/ML INSULN.PEN 10 UNIT SC (17:41)
[2018-06-05] MEDS: oxyCODONE 5 MG Tablet PO (19:29)
[2018-06-05] MEDS: Insulin Lispro 100 UNIT/ML INSULN.PEN SQ (21:16)
[2018-06-05 21:30] LABS: Bedside Glucose 219 mg/dL (70-110)
[2018-06-06] MEDS: oxyCODONE 5 MG Tablet PO ×4 (02:55→18:29)
[2018-06-06 03:03] VITALS: BP 160/78; PULSE 96; RESP 18; TEMP 37.1; O2SAT 96
[2018-06-06] MEDS: Piperacil/Tazobactam 3.375 GM/50 ML ML IV ×2 (05:23→13:52)
[2018-06-06 06:51] LABS: Bedside Glucose 96 mg/dL (70-110)
[2018-06-06 07:35] LABS: Absolute Lymphocyte Count 1.64 X10^3/ul (0.83-4.51); Absolute Neutrophil Count 5.3 X10^3/uL (2.0-7.7); Basophil# 0.04 X10^3/uL; Basophil% 0.5 % (0-1); Eosinophil# 0.56 X10^3/uL; Eosinophils% 6.8 % (0-5); Hematocrit 38.2 % (40-54); Hemoglobin 12.6 g/dl (13.0-16.5); Lymphocyte # 1.64 X10^3/ul (4.0); Lymphocyte % 19.9 % (19-41); Mean Corpuscular Hgb 30.2 pg (27.0-32.0); Mean Corpuscular Volume 91.6 fL (80-94); Mean Platelet Vol. 9.2 fl (6.2-12.0); Monocyte# 0.68 X10^3/uL; Monocyte% 8.2 % (0-10); Neutrophil # 5.28 X10^3/uL (2.7-7.7); Neutrophil % 63.9 % (47-70); Platelet Count 232 K/mm3 (150-450); RBC Distribution Width CV 12.7 % (11.6-14.6); RBC Distribution Width SD 41.6 fl (35.1-43.9); Red Blood Count 4.17 M/mm3 (4.6-6.2); White Blood Count 8.3 K/mm3 (4.4-11.0)
[2018-06-06 07:37] LABS: POSITIVE COUNT NO; POSITIVE DIFFERENTIAL NO; POSITIVE MORPHOLOGY NO
[2018-06-06 07:57] LABS: Anion Gap 8 (5-15); BUN 19 mg/dL (7-18); Calcium,Total 8.4 mg/dL (8.5-10.1); Chloride 101 mmol/L (98-107); Creatinine, Serum 0.86 mg/dL (0.70-1.30); EST Glomerular Filtration Rate 98 mL/min (>60); Est Glom Filt Rate - Afr Amer 118 mL/min (>60); Glucose 85 mg/dL (74-106); Sodium Level 137 mmol/L (136-145)
[2018-06-06] MEDS: Insulin Lispro 100 UNIT/ML INSULN.PEN 10 UNIT SC ×3 (08:56→16:50)
[2018-06-06 09:00] VITALS: BP 150/91; PULSE 96; RESP 18; TEMP 37.4; O2SAT 96
[2018-06-06] MEDS: Glucerna Shake 120 ML LIQUID PO ×3 (09:02→16:48)
--- NOTE | 2018-06-06 09:20 | PCM.PROGNOTE ---
Subjective: Patient was seen today for follow up on right foot s/p debridement due to gangrene 5th toe. He has no new complaints. He relates he has been walking on his foot to go to the bathroom. He does not relate to any fever, chills, nausea or vomiting. - Physical Exam General: Alert, Oriented x3, Cooperative, No apparent distress Extremities: No cyanosis, Capillary Refill Less than 3 Seconds, No Calf Tenderness - Right foot s/p debridement of the 5th toe with residual wound present, 5th metatarsal head visible in wound base, tissues are healthy and viable, no drainage, no visible abscess, no fluctuance, no maloder, no crepitus, cellulitis much improved. No evidence of acute ischemia to the foot bilateral. Stable healing dry eschar to the left 2nd toe distal aspect. Musculoskeletal: No Tenderness to Palpation of Joints or Extremities Vital Signs Temp Pulse Resp BP Pulse Ox 99.3 F H 96 18 150/91 H 96 06/06/18 09:00 06/06/18 09:00 06/06/18 09:00 06/06/18 09:00 06/06/18 09:00 Oxygen Delivery Method Room Air Weight: 119.249 kg Body Mass Index (BMI) 39.9 Finger Stick Blood Glucose 82 Intake and Output for Last 24 Hours 06/04/18 06/05/18 06/06/18 23:59 23:59 23:59 Intake Total 875 / 875 775 / 775 Balance 875 / 875 775 / 775 Microbiology Past 72 Hours 06/05/18 16:16 Gram Stain - Final Tissue - Right Foot 06/05/18 16:16 Gram Stain - Final Tissue - Right Foot Laboratory Tests Past 24 Hrs 06/05/18 06/05/18 06/05/18 12:20 12:20 12:20 WBC 10.1 RBC 4.55 L Hgb 13.7 Hct 41.0 MCV 90.1 MCH 30.1 MCHC 33.4 RDW 12.7 RDW Differential 41.7 Plt Count 228 MPV 9.4 Immature Gran % (Auto) 0.500 Neut % (Auto) 72.7 H Lymph % (Auto) 14.3 L [place] % (Auto) 7.7 Eos % (Auto) 4.6 Baso % (Auto) 0.2 Absolute Neuts (auto) 7.4 Absolute Lymphs (auto) 1.45 Total Counted Not Reportable ESR 80 H Sodium 136 Potassium 3.7 Chloride 100 Carbon Dioxide 27.0 Anion Gap 9 BUN 22 H Creatinine 0.83 Estim Creat Clear Calc 97.29 Est GFR (MDRD) Af Amer 124 Est GFR (MDRD) Non-Af 102 BUN/Creatinine Ratio 26.6 H Glucose 90 Hemoglobin A1c 8.7 H Calcium 9.3 Total Bilirubin 0.60 AST 12 L ALT 19 Alkaline Phosphatase 92 C-React Prot Ext Range 48.20 H Total Protein 8.0 Albumin 3.2 Globulin 4.8 H Albumin/Globulin Ratio 0.7 L 06/06/18 06/06/18 07:13 07:13 WBC 8.3 RBC 4.17 L Hgb 12.6 L Hct 38.2 L MCV 91.6 MCH 30.2 MCHC 33.0 RDW 12.7 RDW Differential 41.6 Plt Count 232 MPV 9.2 Immature Gran % (Auto) 0.700 Neut % (Auto) 63.9 Lymph % (Auto) 19.9 [place] % (Auto) 8.2 Eos % (Auto) 6.8 H Baso % (Auto) 0.5 Absolute Neuts (auto) 5.3 Absolute Lymphs (auto) 1.64 Total Counted Not Reportable ESR Sodium 137 Potassium 4.0 Chloride 101 Carbon Dioxide 28.0 Anion Gap 8 BUN 19 H Creatinine 0.86 Estim Creat Clear Calc 93.90 Est GFR (MDRD) Af Amer 118 Est GFR (MDRD) Non-Af 98 BUN/Creatinine Ratio 22.0 H Glucose 85 Hemoglobin A1c Calcium 8.4 L Total Bilirubin AST ALT Alkaline Phosphatase C-React Prot Ext Range Total Protein Albumin Globulin Albumin/Globulin Ratio POC Glucose 06/06/18 06/05/18 06/05/18 06:47 21:11 17:31 POC Glucose 96 219 H 110 06/05/18 06/05/18 16:41 15:55 POC Glucose 82 85 Medical Necessity - Tobacco Use Smoking Status: Current some day smoker Assessment/Plan All Active Problems Diabetic ulcer of left foot (Acute) Diabetic ulcer of right foot (Acute) Diabetic foot infection (Acute) Right 5th toe gangrene osteomyelitis Diabetes with neuropathy Peripheral Arterial Disease Foot much improved today. Ordered wound vac to be applied to wound right foot 125mmHg continuous. Follow cultures, patient on antibiotic therapy, ID service has been consulted. Vascular has been consulted for patient PAD. Spoke with Dr. Olvera who will see patient tomorrow. No weightbearing right foot. Keep right foot elevated. Spoke with patient about going to nursing facility, but patient declines this at this time, in this case he will need home nursing set up. Podiatry will continue to follow.
--- NOTE | 2018-06-06 10:14 | NURSING ---
wound photo: right foot s/p amputation 5th toe
--- NOTE | 2018-06-06 10:15 | NURSING ---
wound photo: left 2nd toe
--- NOTE | 2018-06-06 11:04 | PCM.HP.ID ---
Problem List (1) Osteomyelitis of right foot Status: Suspected Reason for Consult: osteo Consulted by: Dr. Gan History of Present Illness: The patient is a 57 year old M with DM neuropathy and gangrene, admitted in April with dry gangrene, sent out on doxy and augmentin for 10 more days of therapy. For past 2 weeks, worsening R foot redness, swelling, pain. No fever or chills. Taken to OR 06/[address] Craft for 5th toe amputation. On vanc/zosyn. Full ROS performed and neg except as noted above. - Medical History Past Medical History (Chronic Problems): Chronic Problems Delayed wound healing (Chronic) PVD (peripheral vascular disease) (Chronic) Ulcer of right foot with necrosis of muscle (Chronic) Chronic ulcer of left foot with fat layer exposed (Chronic) Hammer toe of right foot (Chronic) Gangrene (Chronic) Type 2 diabetes mellitus with diabetic polyneuropathy (Chronic) Diabetes mellitus type II, uncontrolled (Chronic) Obesity (BMI 30-39.9) (Chronic) Tobacco use (Chronic) Allergies/Adverse Reactions: Allergies No Known Allergies Allergy (Verified 06/05/18 10:02) Home Medications: Ambulatory Orders Medication Instructions Recorded Amox/Clavulanate Tablet [Augmentin 875 mg PO Q12H #20 tab 05/09/18 Tablet] Nutritional Supplement [Tripp - 1 packet PO BIDCM #60 packet 05/09/18 [place] [facility]] Ciprofloxacin [Cipro] 500 mg PO BID 06/05/18 Insulin Aspart [Novolog Flexpen See Protocol SC TIDCM 06/05/18 ([facility])] Insulin Glargine [Lantus SoloStar 80 units SC BID 06/05/18 Pen] Oxycodone [Oxyir] 5 mg PO Q6H PRN PRN 06/05/18 - Social History Tobacco Use: cigarettes Vital Signs Temp Pulse Resp BP Pulse Ox 99.3 F H 96 18 150/91 H 96 06/06/18 09:00 06/06/18 09:00 06/06/18 09:00 06/06/18 09:00 06/06/18 09:00 Oxygen Delivery Method Room Air Weight: 119.249 kg Body Mass Index (BMI) 39.9 Finger Stick Blood Glucose 82 Microbiology Past 72 Hours 06/05/18 16:16 Gram Stain - Final Tissue - Right Foot Wound Culture - Preliminary Gram negative gene Beta streptococcus 06/05/18 16:16 Gram Stain - Final Tissue - Right Foot Wound Culture - Preliminary No growth-Final to follow Laboratory Tests Past 24 Hrs 06/05/18 06/05/18 06/05/18 12:20 12:20 12:20 WBC 10.1 RBC 4.55 L Hgb 13.7 Hct 41.0 MCV 90.1 MCH 30.1 MCHC 33.4 RDW 12.7 RDW Differential 41.7 Plt Count 228 MPV 9.4 Immature Gran % (Auto) 0.500 Neut % (Auto) 72.7 H Lymph % (Auto) 14.3 L [place] % (Auto) 7.7 Eos % (Auto) 4.6 Baso % (Auto) 0.2 Absolute Neuts (auto) 7.4 Absolute Lymphs (auto) 1.45 Total Counted Not Reportable ESR 80 H Sodium 136 Potassium 3.7 Chloride 100 Carbon Dioxide 27.0 Anion Gap 9 BUN 22 H Creatinine 0.83 Estim Creat Clear Calc 97.29 Est GFR (MDRD) Af Amer 124 Est GFR (MDRD) Non-Af 102 BUN/Creatinine Ratio 26.6 H Glucose 90 Hemoglobin A1c 8.7 H Calcium 9.3 Total Bilirubin 0.60 AST 12 L ALT 19 Alkaline Phosphatase 92 C-React Prot Ext Range 48.20 H Total Protein 8.0 Albumin 3.2 Globulin 4.8 H Albumin/Globulin Ratio 0.7 L 06/06/18 06/06/18 07:13 07:13 WBC 8.3 RBC 4.17 L Hgb 12.6 L Hct 38.2 L MCV 91.6 MCH 30.2 MCHC 33.0 RDW 12.7 RDW Differential 41.6 Plt Count 232 MPV 9.2 Immature Gran % (Auto) 0.700 Neut % (Auto) 63.9 Lymph % (Auto) 19.9 [place] % (Auto) 8.2 Eos % (Auto) 6.8 H Baso % (Auto) 0.5 Absolute Neuts (auto) 5.3 Absolute Lymphs (auto) 1.64 Total Counted Not Reportable ESR Sodium 137 Potassium 4.0 Chloride 101 Carbon Dioxide 28.0 Anion Gap 8 BUN 19 H Creatinine 0.86 Estim Creat Clear Calc 93.90 Est GFR (MDRD) Af Amer 118 Est GFR (MDRD) Non-Af 98 BUN/Creatinine Ratio 22.0 H Glucose 85 Hemoglobin A1c Calcium 8.4 L Total Bilirubin AST ALT Alkaline Phosphatase C-React Prot Ext Range Total Protein Albumin Globulin Albumin/Globulin Ratio - Other Studies Radiology: [] reviewed Other Studies: [] Route of nutrition/ use of supplements: [] Nutritional Intake: [] IV Site: [] White Catheter: [] - Physical Exam General: Alert, Oriented x3, Cooperative, No apparent distress HEENT: Atraumatic, PERRLA, EOMI Neck: Supple, No Nodes Lungs: Clear to auscultation, Normal air movement Cardiovascular: Regular rate, Regular Rhythm Abdomen: Soft, Non Tender, Non-Distended Extremities: No edema Skin: Ulcer/ Wound - reviewed photo of R foot IV Site: Peripheral, without redness Musculoskeletal: No Tenderness to Palpation of Joints or Extremities Neurological: Cranial nerves II-XII grossly intact - Assessment/Plan Antibiotics: [] Assessment/Plan: [] R 5th toe osteo with DM neuropathy - s/p amputation and debridement 06/05/[address] Craft. Surg cx with GBS and GNR. Recent wound cx with MRSA, PsA, and morganella. Cont vanc/zosyn. Will follow, thank you.
[2018-06-06] MEDS: Insulin Lispro 100 UNIT/ML INSULN.PEN SQ ×3 (11:23→20:06)
[2018-06-06 11:51] LABS: Bedside Glucose 194 mg/dL (70-110)
--- NOTE | 2018-06-06 12:25 | CASEMGMT ---
RN VIOLA Face to Face with patient for initial transition planning/care coordination assessment. RN CM introduced self and role at [facility]. Patient lying in bed, alert and oriented. Patient willing to participate in assessment and is able to answer all questions appropriately. Care providers, pharmacy, and demographics verified. See link attached. Patient wishes to discharge home and will need HHC for wound vac dressing changes. Patient agreeable to [facility] HHC. KIKA ROD will monitor for need for IV ATB at discharge. Patient states he has no further needs or concerns at this time. Referral sent to [facility] and they are able to accept the patient. CM to follow for discharge planning needs that may arise. Disposition Plan: Patient to discharge home with HHC, family support, and follow-up plans in place. Ruth HAQUE, RN, CM
[2018-06-06 14:00] VITALS: BP 127/83; PULSE 90; RESP 18; TEMP 37.3; O2SAT 96
[2018-06-06 17:10] LABS: Bedside Glucose 227 mg/dL (70-110)
--- NOTE | 2018-06-06 18:33 | PN_ITS ---
Subjective: Patient seen and examined today, preliminary culture of the patient's right foot grew out strep and a gram-negative bacteria, final identification of the organism is not back at this time. I talked briefly with infectious diseases about the patient's medical care. Patient also had a venous duplex scan done of both legs which did not show evidence of DVT. - Physical Exam General: Alert, Oriented x3, Cooperative, No apparent distress, Well developed, Well nourished HEENT: Atraumatic, PERRLA, EOMI, Normocephalic Oral: Moist Mucosa Neck: Supple, No Nuchal Rigidity, Trachea Midline Lungs: Clear to auscultation, Normal air movement, No rhonchi, No wheeze, No rales Cardiovascular: Regular rate, Regular Rhythm, Normal S1, Normal S2, No murmurs, No Ectopic Activity, PMI Normal, No rub noted, No Gallop Abdomen: Bowel Sounds Present, Soft, Non Tender Extremities: - - Right foot is wrapped with surgical dressing and an Augustus wrap and was not examined Skin: No rashes, No breakdown Neurological: Cranial nerves II-XII grossly intact, Neuro grossly intact, Sensory exam intact to light touch and pain, Coordination normal Psych/Mental Status: Normal Affect, Appropriate, Alert and oriented to time, place, person, mood and affect Vital Signs Temp Pulse Resp BP Pulse Ox 99.1 F 90 18 127/83 H 96 06/06/18 14:00 06/06/18 14:00 06/06/18 14:00 06/06/18 14:00 06/06/18 14:00 Oxygen Delivery Method Room Air Weight: 119.249 kg Body Mass Index (BMI) 39.9 Finger Stick Blood Glucose 82 Intake and Output for Last 24 Hours 06/04/18 06/05/18 06/06/18 23:59 23:59 23:59 Intake Total 875 / 875 1645 / 1645 Balance 875 / 875 1645 / 1645 Microbiology Past 72 Hours 06/05/18 16:16 Gram Stain - Final Tissue - Right Foot Wound Culture - Preliminary Gram negative gene Streptococcus group B 06/05/18 16:16 Gram Stain - Final Tissue - Right Foot Wound Culture - Preliminary No growth-Final to follow Laboratory Tests Past 24 Hrs 06/06/18 06/06/18 07:13 07:13 WBC 8.3 RBC 4.17 L Hgb 12.6 L Hct 38.2 L MCV 91.6 MCH 30.2 MCHC 33.0 RDW 12.7 RDW Differential 41.6 Plt Count 232 MPV 9.2 Immature Gran % (Auto) 0.700 Neut % (Auto) 63.9 Lymph % (Auto) 19.9 [place] % (Auto) 8.2 Eos % (Auto) 6.8 H Baso % (Auto) 0.5 Absolute Neuts (auto) 5.3 Absolute Lymphs (auto) 1.64 Total Counted Not Reportable Sodium 137 Potassium 4.0 Chloride 101 Carbon Dioxide 28.0 Anion Gap 8 BUN 19 H Creatinine 0.86 Estim Creat Clear Calc 93.90 Est GFR (MDRD) Af Amer 118 Est GFR (MDRD) Non-Af 98 BUN/Creatinine Ratio 22.0 H Glucose 85 Calcium 8.4 L POC Glucose 06/06/18 06/06/18 06/06/18 16:50 11:22 06:47 POC Glucose 227 H 194 H 96 06/05/18 21:11 POC Glucose 219 H Medical Necessity - Tobacco Use Smoking Status: Current some day smoker Assessment/Plan All Active Problems Diabetic ulcer of left foot (Acute) Diabetic ulcer of right foot (Acute) Diabetic foot infection (Acute) #1 right fifth toe gangrene with osteomyelitis secondary to diabetic neuropathy , status post amputation of right fifth toe and debridement of nonviable tissue postop day #1-podiatry is seeing patient, ID is also participating in his care, antibiotic coverage per ID. Wound VAC has been ordered to be applied to right foot #2 type 2 diabetes-continue present care #3 diabetic neuropathy #4 peripheral vascular disease-dietary has consulted vascular surgery Code Visit Inpatient E&M: 30729 Subs Hosp L2
[2018-06-06 20:00] VITALS: BP 134/71; PULSE 91; RESP 18; TEMP 37.1; O2SAT 96
[2018-06-06 20:11] LABS: Bedside Glucose 245 mg/dL (70-110)
[2018-06-06 21:51] LABS: Vancomycin, Trough Level 8.3 ug/mL (5.0-15.0)
[2018-06-07] MEDS: Piperacil/Tazobactam 3.375 GM/50 ML ML IV ×2 (00:04→05:55)
[2018-06-07] MEDS: oxyCODONE 5 MG Tablet PO (00:05)
[2018-06-07 04:00] VITALS: BP 146/76; PULSE 90; RESP 18; TEMP 37.2; O2SAT 98
[2018-06-07 07:29] VITALS: BP 145/79; PULSE 88; RESP 16; TEMP 36.6; O2SAT 96
[2018-06-07 07:55] LABS: Bedside Glucose 177 mg/dL (70-110)
[2018-06-07] MEDS: Glucerna Shake 120 ML LIQUID PO ×3 (07:57→17:14)
[2018-06-07] MEDS: Insulin Lispro 100 UNIT/ML INSULN.PEN SQ ×3 (08:06→17:09)
[2018-06-07] MEDS: Insulin Lispro 100 UNIT/ML INSULN.PEN 10 UNIT SC ×2 (08:06→11:17)
--- NOTE | 2018-06-07 08:22 | PCM.RX.CS ---
Consult Pharmacy has been consulted to manage selected antiobiotic: Vancomycin Type of Consult: Follow-up Suspected Infection: Other Prior Doses of Antibiotics Received/Current Regimen: Currently on vancomycin 1500mg IV q12h with the last 2 doses given on 06/06/18 at 09:21 and 21:35 Labs: Sodium 137 mmol/L (136-145) 06/06/18 07:13 Potassium 4.0 mmol/L (3.5-5.1) 06/06/18 07:13 Chloride 101 mmol/L (98-107) 06/06/18 07:13 Carbon Dioxide 28.0 mmol/L (21.0-32.0) 06/06/18 07:13 Anion Gap 8 (5-15) 06/06/18 07:13 BUN 19 mg/dL (7-18) H 06/06/18 07:13 Creatinine 0.86 mg/dL (0.70-1.30) 06/06/18 07:13 Est GFR (MDRD) Af Amer 118 mL/min (>60) 06/06/18 07:13 Est GFR (MDRD) Non-Af 98 mL/min (>60) 06/06/18 07:13 BUN/Creatinine Ratio 22.0 RATIO (10-20) H 06/06/18 07:13 Glucose 85 mg/dL (74-106) 06/06/18 07:13 Vancomycin Trough 8.3 ug/mL (5.0-15.0) 06/06/18 21:12 Microbiology: Microbiology 06/05/18 16:16 Tissue - Right Foot Gram Stain - Final 06/05/18 16:16 Tissue - Right Foot Wound Culture - Preliminary Gram negative gene Streptococcus group B 06/05/18 16:16 Tissue - Right Foot Gram Stain - Final 06/05/18 16:16 Tissue - Right Foot Wound Culture - Preliminary No growth-Final to follow Estimated Creatinine Clearance: 94 ml/min Goal Trough: 10-15 mcg/mL Pharmacy Plan for Drug Dosing: Trough obtained 06/06/18 at 21:12 returned as 8.3. Since goal range was 10-15, plan to increase dose to 1750mg IV q12h starting today at 10:00. Obtain another trough before the 4th dose. Pharmacy Service will continue to monitor and adjust dosing as required. Follow-Up Labs: Trough Vancomycin Labs to be done on [date and time ordered]: 06/08/18 at 21:30
[2018-06-07] MEDS: levoFLOXacin IV 750 MG/150 ML BAG 100 MG IV (10:47)
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
--- NOTE | 2018-06-07 11:54 | PCM.PN.ID ---
Subjective: Feeling ok, foot sore, no fever, no n/v/d. - Physical Exam General: Alert, Cooperative, No apparent distress Lungs: Clear to auscultation, Normal air movement Cardiovascular: Regular rate, Regular Rhythm Abdomen: Soft, Non Tender, Non-Distended Extremities: Edema - mild BLE Skin: Ulcer/ Wound - Foot wrapped Vital Signs Temp Pulse Resp BP Pulse Ox 97.9 F 88 16 145/79 H 96 06/07/18 07:29 06/07/18 07:29 06/07/18 07:29 06/07/18 07:29 06/07/18 07:29 Oxygen Delivery Method Room Air Weight: 119.249 kg Body Mass Index (BMI) 39.9 Finger Stick Blood Glucose 82 Intake and Output for Last 24 Hours 06/05/18 06/06/18 06/07/18 23:59 23:59 23:59 Intake Total 875 / 875 2194 / 2194 376 / 376 Balance 875 / 875 2194 / 2194 376 / 376 Microbiology Past 72 Hours 06/05/18 16:16 Gram Stain - Final Tissue - Right Foot Wound Culture - Preliminary Morganella morganii sp sibonii Streptococcus group B 06/05/18 16:16 Gram Stain - Final Tissue - Right Foot Wound Culture - Preliminary No growth-Final to follow Laboratory Tests Past 24 Hrs 06/06/18 21:12 Vancomycin Trough 8.3 POC Glucose 06/07/18 06/06/18 06/06/18 07:35 20:03 16:50 POC Glucose 177 H 245 H 227 H Medical Necessity - Tobacco Use Smoking Status: Current some day smoker Route of nutrition/ use of supplements: [] Nutritional Intake: [] IV Site: [] White Catheter: [] - Assessment/Plan Antibiotics: [] Assessment/Plan: [] R 5th toe osteo with DM neuropathy - s/p amputation and debridement 06/05/[address] Craft. Surg cx with GBS and morganella. Recent wound cx with MRSA, PsA, and morganella. These are all sensitive to levaquin which has good bone penetration. Will change vanc/zosyn to levaquin/flagyl. Counselled him about avoiding etoh and discussed risk of side effects including worsened neuropathy and tendonitis. Surg cx and path pending which will determine length of abx; plan on discharge on po meds. Will follow
[2018-06-07 11:56] LABS: Bedside Glucose 280 mg/dL (70-110)
[2018-06-07 14:25] LABS: Bedside Glucose 318 mg/dL (70-110)
[2018-06-07] MEDS: metroNIDAZOLE 500 MG Tablet PO ×2 (14:39→21:10)
[2018-06-07] MEDS: Insulin Lispro 100 UNIT/ML INSULN.PEN 15 UNIT SC (14:50)
[2018-06-07 16:15] LABS: Bedside Glucose 221 mg/dL (70-110)
[2018-06-07] MEDS: Insulin Lispro 100 UNIT/ML INSULN.PEN 18 UNIT SC (17:08)
--- NOTE | 2018-06-07 18:26 | PCM.PROGNOTE ---
Subjective: Patient was seen today for follow up on feet, he has no new complaints. He relates he is doing well, no complaints of fever, chills, nausea or vomiting. Has wound vac in place to right foot surgical site. - Physical Exam General: Alert, Oriented x3, Cooperative, No apparent distress Extremities: Capillary Refill Less than 3 Seconds, Peripheral Pulses Normal, - - Wound vac clean, dry and intact to the right foot at surgical site. Left distal 2nd toe with granular ulceration down to subcutaneous tissue layer, tissues healthy and viable with no evidence of infection. Vital Signs Temp Pulse Resp BP Pulse Ox 97.9 F 88 16 145/79 H 96 06/07/18 07:29 06/07/18 07:29 06/07/18 07:29 06/07/18 07:29 06/07/18 07:29 Oxygen Delivery Method Room Air Weight: 119.249 kg Body Mass Index (BMI) 39.9 Finger Stick Blood Glucose 82 Intake and Output for Last 24 Hours 06/05/18 06/06/18 06/07/18 23:59 23:59 23:59 Intake Total 875 / 875 2194 / 2194 376 / 376 Balance 875 / 875 2194 / 2194 376 / 376 Microbiology Past 72 Hours 06/05/18 16:16 Gram Stain - Final Tissue - Right Foot Wound Culture - Preliminary Morganella morganii sp sibonii Streptococcus group B 06/05/18 16:16 Gram Stain - Final Tissue - Right Foot Wound Culture - Preliminary No growth-Final to follow Laboratory Tests Past 24 Hrs 06/06/18 21:12 Vancomycin Trough 8.3 POC Glucose 06/07/18 06/07/18 06/07/18 16:05 14:09 11:15 POC Glucose 221 H 318 H 280 H 06/07/18 06/06/18 07:35 20:03 POC Glucose 177 H 245 H Medical Necessity - Tobacco Use Smoking Status: Current some day smoker Assessment/Plan All Active Problems Diabetic ulcer of left foot (Acute) Diabetic ulcer of right foot (Acute) Diabetic foot infection (Acute) Right 5th toe gangrene osteomyelitis Diabetes with neuropathy Peripheral Arterial Disease Ulcer distal plantar 2nd toe left foot down to subcutaneous tissue layer Continue with wound vac, patient on antibiotic therapy per ID service. Vascular surgery, Dr. Olvera, has seen patient and no plans for vascular intervention at this time. No weightbearing right foot. Keep right foot elevated. Left 2nd toe ulceration - collagenase with gauze dressing changes daily, keep offloaded. Patient to follow up with Dr. Abarca or Dr. Pisano at wound center once discharged.
--- NOTE | 2018-06-07 19:12 | PCM.PROGNOTE ---
Subjective: Patient seen and examined today, I discussed his culture results with him and I also talked with infectious diseases about his culture results. Infectious diseases has changed his antibiotic coverage to oral antibiotics, we are currently awaiting approval for his wound VAC from his insurance carrier. I discussed his blood sugars with the patient, these have been elevated and the patient is concerned so I have elected to increase the patient's insulin coverage - Physical Exam General: Alert, Oriented x3, Cooperative, No apparent distress, Well developed HEENT: Atraumatic, PERRLA, EOMI, Normocephalic Oral: Moist Mucosa Neck: Supple, No Nuchal Rigidity, Trachea Midline, Thyroid Normal Size and Texture Lungs: Clear to auscultation, Normal air movement, No rhonchi, No wheeze, No rales Cardiovascular: Regular rate, Regular Rhythm, Normal S1, Normal S2, No murmurs, No Ectopic Activity, PMI Normal, No rub noted, No Gallop Abdomen: Bowel Sounds Present, Soft, Non Tender, Non-Distended, No hernias noted Extremities: - - Patient's right foot is covered with surgical dressing and an Augustus wrap, this was not unwrapped for examination today Neurological: Cranial nerves II-XII grossly intact, Neuro grossly intact, Coordination normal Psych/Mental Status: Normal Affect, Appropriate, Alert and oriented to time, place, person, mood and affect Vital Signs Temp Pulse Resp BP Pulse Ox 97.9 F 88 16 145/79 H 96 06/07/18 07:29 06/07/18 07:29 06/07/18 07:29 06/07/18 07:29 06/07/18 07:29 Oxygen Delivery Method Room Air Weight: 119.249 kg Body Mass Index (BMI) 39.9 Finger Stick Blood Glucose 82 Intake and Output for Last 24 Hours 06/05/18 06/06/18 06/07/18 23:59 23:59 23:59 Intake Total 875 / 875 2194 / 2194 376 / 376 Balance 875 / 875 2194 / 2194 376 / 376 Microbiology Past 72 Hours 06/05/18 16:16 Gram Stain - Final Tissue - Right Foot Wound Culture - Preliminary Morganella morganii sp sibonii Streptococcus group B 06/05/18 16:16 Gram Stain - Final Tissue - Right Foot Wound Culture - Preliminary No growth-Final to follow Laboratory Tests Past 24 Hrs 06/06/18 21:12 Vancomycin Trough 8.3 POC Glucose 06/07/18 06/07/18 06/07/18 16:05 14:09 11:15 POC Glucose 221 H 318 H 280 H 06/07/18 06/06/18 07:35 20:03 POC Glucose 177 H 245 H Medical Necessity - Tobacco Use Smoking Status: Current some day smoker Assessment/Plan All Active Problems Diabetic ulcer of left foot (Acute) Diabetic ulcer of right foot (Acute) Diabetic foot infection (Acute) #1 right fifth toe gangrene with osteomyelitis with Morganella and strep group B secondary to diabetic neuropathy, status post amputation of right fifth toe and debridement of nonviable tissue postop day #2-podiatry is seeing patient, ID is also participating in his care, antibiotic coverage per ID-patient was changed to oral antibiotics today. Wound VAC approval as outpatient is pending. Patient surgical margins do not show any growth at this time, it is anticipated he will need 2 more weeks of antibiotic coverage. #2 type 2 diabetes-patient's insulin coverage was increased due to patient's elevated blood sugars I discussed this with him today #3 diabetic neuropathy #4 peripheral vascular disease-dietary has consulted vascular surgery, vascular surgery has no recommendations concerning further treatment Code Visit Inpatient E&M: 37039 Subs Hosp L2
[2018-06-07 19:59] VITALS: BP 132/74; PULSE 87; RESP 18; TEMP 36.9; O2SAT 99
[2018-06-07 21:15] LABS: Bedside Glucose 82 mg/dL (70-110)
[2018-06-07 23:16] LABS: Bedside Glucose 152 mg/dL (70-110)
[2018-06-08 02:00] VITALS: BP 147/86; PULSE 74; RESP 18; TEMP 37; O2SAT 100
[2018-06-08] MEDS: metroNIDAZOLE 500 MG Tablet PO ×2 (06:08→15:15)
[2018-06-08] MEDS: Glucerna Shake 120 ML LIQUID PO (08:32)
[2018-06-08 08:41] LABS: Bedside Glucose 123 mg/dL (70-110)
[2018-06-08 10:46] VITALS: BP 123/71; PULSE 75; RESP 18; TEMP 36.9; O2SAT 98
[2018-06-08] MEDS: Insulin Lispro 100 UNIT/ML INSULN.PEN SQ ×2 (10:48→15:10)
--- NOTE | 2018-06-08 11:27 | PN.ID_ITS ---
Subjective: Feeling great, no fever, no n/v/d. No issues with new abx. - Physical Exam General: Alert, Cooperative, No apparent distress Lungs: Clear to auscultation, Normal air movement, No rales Cardiovascular: Regular rate, Regular Rhythm Abdomen: Soft, Non Tender, Non-Distended Skin: Ulcer/ Wound - foot wrapped Vital Signs Temp Pulse Resp BP Pulse Ox 98.4 F 75 18 123/71 H 98 06/08/18 10:46 06/08/18 10:46 06/08/18 10:46 06/08/18 10:46 06/08/18 10:46 Oxygen Delivery Method Room Air Weight: 119.249 kg Body Mass Index (BMI) 39.9 Finger Stick Blood Glucose 82 Intake and Output for Last 24 Hours 06/06/18 06/07/18 06/08/18 23:59 23:59 23:59 Intake Total 2194 / 2194 376 / 376 Balance 2194 / 2194 376 / 376 Microbiology Past 72 Hours 06/05/18 16:16 Gram Stain - Final Tissue - Right Foot Wound Culture - Final No growth aerobically. Anaerobic Culture - Preliminary No growth in 48 hours. 06/05/18 16:16 Gram Stain - Final Tissue - Right Foot Wound Culture - Final Morganella morganii sp sibonii Streptococcus agalactiae (B) POC Glucose 06/08/18 06/07/18 06/07/18 08:15 23:05 21:09 POC Glucose 123 H 152 H 82 06/07/18 06/07/18 06/07/18 16:05 14:09 11:15 POC Glucose 221 H 318 H 280 H Medical Necessity - Tobacco Use Smoking Status: Current some day smoker Route of nutrition/ use of supplements: [] Nutritional Intake: [] IV Site: [] White Catheter: [] - Assessment/Plan Antibiotics: [] Assessment/Plan: [] R 5th toe osteo with DM neuropathy - s/p amputation and debridement 06/05/[address] Craft. Surg cx with GBS and morganella. Recent wound cx with MRSA, PsA, and morganella. These are all sensitive to levaquin which has good bone penetration. On levaquin/flagyl. Counselled him about avoiding etoh and discussed risk of side effects including worsened neuropathy and tendonitis. Surg cx of clearance fragment is neg, ok for d/c home on 2 weeks po levaquin/ flagyl. Will follow
[2018-06-08] MEDS: levoFLOXacin 750 MG Tablet PO (11:46)
[2018-06-08 12:01] LABS: Bedside Glucose 187 mg/dL (70-110)
--- NOTE | 2018-06-08 12:22 | CASEMGMT ---
RN CM Note: Wound vac changed today per Yi Epstein test engineering intern Nurse. Next change will be on Tuesday, then pt can have changes MWF after that. Call to [facility] to update and possible dc today, but no order yet. Seferino LARSONN RN ACM
--- NOTE | 2018-06-08 13:48 | PCM.PROGNOTE ---
Subjective: Patient was seen today for follow up on right foot - foot improving, relates he feels good, he relates he is ready to go home. He has no new complaints. No complaints of fever, chills, nausea or vomiting. - Physical Exam General: Alert, Oriented x3, Cooperative, No apparent distress Extremities: Capillary Refill Less than 3 Seconds, No Calf Tenderness, - - Right foot: s/p debridement of 5th toe with residual wound present down to the 5th metatarsal bone, there is some dusky tissue to the dorsal and dorsal lateral aspect of the margins of the site but normal temperature present, significantly less cellulitis to the foot - much improved, otherwise tissue appears healthy and viable at the debridement site, no purulence, no maloder, no fluctuance, no crepitus, no visible abscess. Musculoskeletal: No Tenderness to Palpation of Joints or Extremities Vital Signs Temp Pulse Resp BP Pulse Ox 98.4 F 75 18 123/71 H 98 06/08/18 10:46 06/08/18 10:46 06/08/18 10:46 06/08/18 10:46 06/08/18 10:46 Oxygen Delivery Method Room Air Weight: 119.249 kg Body Mass Index (BMI) 39.9 Finger Stick Blood Glucose 82 Intake and Output for Last 24 Hours 06/06/18 06/07/18 06/08/18 23:59 23:59 23:59 Intake Total 2194 / 2194 376 / 376 Balance 2194 / 2194 376 / 376 Microbiology Past 72 Hours 06/05/18 16:16 Gram Stain - Final Tissue - Right Foot Wound Culture - Final No growth aerobically. Anaerobic Culture - Preliminary No growth in 48 hours. 06/05/18 16:16 Gram Stain - Final Tissue - Right Foot Wound Culture - Final Morganella morganii sp sibonii Streptococcus agalactiae (B) POC Glucose 06/08/18 06/08/18 06/07/18 11:44 08:15 23:05 POC Glucose 187 H 123 H 152 H 06/07/18 06/07/18 06/07/18 21:09 16:05 14:09 POC Glucose 82 221 H 318 H Medical Necessity - Tobacco Use Smoking Status: Current some day smoker Assessment/Plan All Active Problems Diabetic ulcer of left foot (Acute) Diabetic ulcer of right foot (Acute) Diabetic foot infection (Acute) Right 5th toe gangrene osteomyelitis Diabetes with neuropathy Peripheral Arterial Disease Ulcer distal plantar 2nd toe left foot down to subcutaneous tissue layer Continue with wound vac, patient on antibiotic therapy per ID service. Vascular surgery, Dr. Olvera, has seen patient and no plans for vascular intervention at this time. No weightbearing right foot. Keep right foot elevated. Left 2nd toe ulceration - collagenase with gauze dressing changes daily, keep offloaded. Patient to follow up with Dr. Abarca or Dr. Pisano next week at wound center once discharged.
--- NOTE | 2018-06-08 14:16 | NURSING ---
wound photo: right foot s/p 5th toe amputation
--- NOTE | 2018-06-08 15:09 | PCM.DC ---
You will use the following diet at home:: Calorie/Carbohydrate Controlled (specify 1200, 1400, etc) - 1800 indra Your food should be the consistency of: Regular Your liquids should be the consistency of: Regular/Thin Discharge Activity: Return to Normal Activity Weight Bearing Status: No weight bearing, - - keep right foot elevated Allergies/Adverse Reactions: Allergies No Known Allergies Allergy (Verified 06/05/18 10:02) Medications to take at Discharge Nutritional Supplement [Tripp - ORANGE FLAVOR] 1 packet PO BIDCM #60 packet 05/09/18 Insulin Aspart [Novolog Flexpen] See Protocol SC TIDCM 06/05/18 Oxycodone [Oxyir] 5 mg PO Q6H PRN PRN 06/05/18 Insulin Glargine [Lantus SoloStar Pen] 90 units SC BID pen 06/08/18 Insulin Lispro [Humalog KwikPen] 18 unit SC TIDAC insuln.pen 06/08/18 Metronidazole [Flagyl] 500 mg PO TID #42 tab 06/08/18 levoFLOXacin tablet [Levaquin tablet] 750 mg PO DAILY@0600 #14 tab 06/08/18 The following prescriptions were given: levoFLOXacin tablet [Levaquin tablet] 750 mg PO DAILY@0600 #14 tab Metronidazole [Flagyl] 500 mg PO TID #42 tab Primary Care Physician: Matias Graves MD [Primary Care Provider] - Please follow up with your Primary Care Physician in: in 3 weeks Test Results: Test results from this visit will be discussed in further detail at your follow-up appointment, if applicable. Please Follow Up With: Parris Abarca DPM
--- NOTE | 2018-06-08 15:12 | DCINST_ITS ---
You will use the following diet at home:: Calorie/Carbohydrate Controlled ( specify 1200, 1400, etc) - 1800 indra Your food should be the consistency of: Regular Your liquids should be the consistency of: Regular/Thin Discharge Activity: Return to Normal Activity Weight Bearing Status: No weight bearing, - - keep right foot elevated Allergies/Adverse Reactions: Allergies No Known Allergies Allergy (Verified 06/05/18 10:02) Medications to take at Discharge Nutritional Supplement [Tripp - ORANGE FLAVOR] 1 packet PO BIDCM #60 packet Insulin Aspart [Novolog Flexpen] See Protocol SC TIDCM 06/05/18 Oxycodone [Oxyir] 5 mg PO Q6H PRN PRN 06/05/18 Insulin Glargine [Lantus SoloStar Pen] 90 units SC BID pen 06/08/18 Insulin Lispro [Humalog KwikPen] 18 unit SC TIDAC insuln.pen 06/08/18 Metronidazole [Flagyl] 500 mg PO TID #42 tab 06/08/18 levoFLOXacin tablet [Levaquin tablet] 750 mg PO DAILY@0600 #14 tab 06/08/18 The following prescriptions were given: levoFLOXacin tablet [Levaquin tablet] 750 mg PO DAILY@0600 #14 tab Metronidazole [Flagyl] 500 mg PO TID #42 tab Primary Care Physician: Matias Graves MD [Primary Care Provider] - Please follow up with your Primary Care Physician in: in 3 weeks Test Results: Test results from this visit will be discussed in further detail at your follow- up appointment, if applicable. Please Follow Up With: Parris Abarca DPM
[2018-06-08 15:14] VITALS: BP 122/81; PULSE 73; RESP 18; TEMP 36.6; O2SAT 98
--- NOTE | 2018-06-11 13:28 | PCM.DC.SUM ---
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 secondary to diabetic neuropathy #2 type 2 diabetes-uncontrolled #3 diabetic neuropathy #4 peripheral vascular disease #5 obesity - Secondary Discharge Diagnosis Chronic Problems Delayed wound healing (Chronic) PVD (peripheral vascular disease) (Chronic) Ulcer of right foot with necrosis of muscle (Chronic) Chronic ulcer of left foot with fat layer exposed (Chronic) Hammer toe of right foot (Chronic) Gangrene (Chronic) Type 2 diabetes mellitus with diabetic polyneuropathy (Chronic) Diabetes mellitus type II, uncontrolled (Chronic) Obesity (BMI 30-39.9) (Chronic) Tobacco use (Chronic) Hospital Course and Treatment Consultations 06/06/18 10:44 Consult: Onc/Wound/cosmetologist apprentice Routine Comment: Reason for Consult:: wound VAC application right foot Operations: None, - - Right fifth toe amputation and debridement of nonviable infected and necrotic soft tissue and bone right foot-06/05/18 Summary of Care Provided: The patient is a 57 year old M was directly admitted to [place] [address] for treatment of a gangrenous right fifth toe. Patient had been seeing podiatry as an outpatient for treatment of a right fifth toe ulceration but now it had developed gangrene. Patient was admitted to [place] [address], seen by podiatry, and underwent an amputation of the right fifth toe along with debridement of nonviable tissue. Patient was seen in consultation by infectious diseases who directed antibiotic coverage, final cultures of tissue taken from the right foot grew out Morganella morganii and strep agalactiae, it was felt that the patient can be treated as an outpatient with oral antibiotics. Wound VAC was applied to the area and approval was obtained for outpatient wound VAC. On 06/08/18, patient was seen and examined and felt to be in stable condition for discharge home Discharge Activity: Return to Normal Activity Weight Bearing Status: No weight bearing, - - keep right foot elevated Home Medications: Medications to take at Discharge Nutritional Supplement [Tripp - ORANGE FLAVOR] 1 packet PO BIDCM #60 packet 05/09/18 Insulin Aspart [Novolog Flexpen] See Protocol [facility] TIDCM 06/05/18 Oxycodone [Oxyir] 5 mg PO Q6H PRN PRN 06/05/18 Insulin Glargine [Lantus SoloStar Pen] 90 units SC BID pen 06/08/18 Insulin Lispro [Humalog KwikPen] 18 unit SC TIDAC insuln.pen 06/08/18 Metronidazole [Flagyl] 500 mg PO TID #42 tab 06/08/18 levoFLOXacin tablet [Levaquin tablet] 750 mg PO DAILY@0600 #14 tab 06/08/18 Following Prescrptions Were Given to Patient: levoFLOXacin tablet [Levaquin tablet] 750 mg PO DAILY@0600 #14 tab Metronidazole [Flagyl] 500 mg PO TID #42 tab Primary Care Physician: Matias Graves MD [Primary Care Provider] - Please follow up with your Primary Care Physician in: in 3 weeks Please Follow Up With: Parris Abarca DPM Disposition: Home Minutes spent on discharge:: 34 Patient Condition:: Stable Medical Necessity - Tobacco Use Smoking Status: Current some day smoker Meaningful Use Info Meaningful Use Diagnoses (Choose all that apply): None applicable Code Visit Inpatient E&M: 95660 Disch Hosp
--- NOTE | 2018-06-11 13:35 | DS.PCM_ITS ---
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 secondary to diabetic neuropathy #2 type 2 diabetes-uncontrolled #3 diabetic neuropathy #4 peripheral vascular disease #5 obesity - Secondary Discharge Diagnosis Chronic Problems Delayed wound healing (Chronic) PVD (peripheral vascular disease) (Chronic) Ulcer of right foot with necrosis of muscle (Chronic) Chronic ulcer of left foot with fat layer exposed (Chronic) Hammer toe of right foot (Chronic) Gangrene (Chronic) Type 2 diabetes mellitus with diabetic polyneuropathy (Chronic) Diabetes mellitus type II, uncontrolled (Chronic) Obesity (BMI 30-39.9) (Chronic) Tobacco use (Chronic) Hospital Course and Treatment Consultations 06/06/18 10:44 Consult: Onc/Wound/balloon dipper Routine Comment: Reason for Consult:: wound VAC application right foot Operations: None, - - Right fifth toe amputation and debridement of nonviable infected and necrotic soft tissue and bone right foot-06/05/18 Summary of Care Provided: The patient is a 57 year old M was directly admitted to [place] [address] for treatment of a gangrenous right fifth toe. Patient had been seeing podiatry as an outpatient for treatment of a right fifth toe ulceration but now it had developed gangrene. Patient was admitted to [place] [address], seen by podiatry, and underwent an amputation of the right fifth toe along with debridement of nonviable tissue. Patient was seen in consultation by infectious diseases who directed antibiotic coverage, final cultures of tissue taken from the right foot grew out Morganella morganii and strep agalactiae, it was felt that the patient can be treated as an outpatient with oral antibiotics. Wound VAC was applied to the area and approval was obtained for outpatient wound VAC. On 06/08, patient was seen and examined and felt to be in stable condition for discharge home Discharge Activity: Return to Normal Activity Weight Bearing Status: No weight bearing, - - keep right foot elevated Home Medications: Medications to take at Discharge Nutritional Supplement [Tripp - ORANGE FLAVOR] 1 packet PO BIDCM #60 packet Insulin Aspart [Novolog Flexpen] See Protocol SC TIDCM 06/05/18 Oxycodone [Oxyir] 5 mg PO Q6H PRN PRN 06/05/18 Insulin Glargine [Lantus SoloStar Pen] 90 units SC BID pen 06/08/18 Insulin Lispro [Humalog KwikPen] 18 unit SC TIDAC insuln.pen 06/08/18 Metronidazole [Flagyl] 500 mg PO TID #42 tab 06/08/18 levoFLOXacin tablet [Levaquin tablet] 750 mg PO DAILY@0600 #14 tab 06/08/18 Following Prescrptions Were Given to Patient: levoFLOXacin tablet [Levaquin tablet] 750 mg PO DAILY@0600 #14 tab Metronidazole [Flagyl] 500 mg PO TID #42 tab Primary Care Physician: Matias Graves MD [Primary Care Provider] - Please follow up with your Primary Care Physician in: in 3 weeks Please Follow Up With: Parris Abarca DPM Disposition: Home Minutes spent on discharge:: 34 Patient Condition:: Stable Medical Necessity - Tobacco Use Smoking Status: Current some day smoker Meaningful Use Info Meaningful Use Diagnoses (Choose all that apply): None applicable Code Visit Inpatient E&M: 63631 Disch Hosp
== END 2018-06-08 15:49 | disposition home health service (06) | DRG 617 ==
PROVIDERS: Anesthesiology; Podiatrist; Admitting Provider Internal Medicine; Family Provider Family Medicine; PCP Family Medicine; Visit Provider Internal Medicine
PROC: 0Y6X0Z0 Detachment at Right 5th Toe, Complete, Open Approach (ICD-10-PCS; principal; 2018-06-05 07:15)
DX: E11.69 Type 2 diabetes mellitus with other specified complication (principal); L03.115 Cellulitis of right lower limb; M86.8X7 Other osteomyelitis, ankle and foot; E11.52 Type 2 diabetes mellitus with diabetic peripheral angiopathy with gangrene; I96 Gangrene, not elsewhere classified; E11.42 Type 2 diabetes mellitus with diabetic polyneuropathy; E11.65 Type 2 diabetes mellitus with hyperglycemia; E66.9 Obesity, unspecified; Z68.39 Body mass index [BMI] 39.0-39.9, adult; B95.1 Streptococcus, group B, as the cause of diseases classified elsewhere; B96.89 Other specified bacterial agents as the cause of diseases classified elsewhere; Z79.4 Long term (current) use of insulin; L97.522 Non-pressure chronic ulcer of other part of left foot with fat layer exposed
CPT/HCPCS: 36415; 73630; 76000; 80048; 80053; 80202; 82962; 83036; 85025; 85652; 86140; 87070; 87075; 87077; 87186; 87205; 88304; 88305; 88311; 88312; 93005; 93970; 97116; 97162; 97802; J7040; J2405

== ENCOUNTER 2018-06-14 14:45 | Outpatient (RCR) | payer BC, SELFPAY ==
[2018-05-20 01:52] VITALS: BP 152/88; PULSE 86; RESP 18; TEMP 36.1
[2018-05-31 09:32] VITALS: BP 161/94; PULSE 88; RESP 16; TEMP 36.5
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
[2018-06-14 15:11] VITALS: BP 145/84; PULSE 88; RESP 20; TEMP 36.6
--- NOTE | 2018-06-14 16:27 | PN.PCM_ITS ---
(1) Ulcer of right foot with necrosis of muscle Status: Chronic Current Visit: Yes Code(s): L97.513 - Non-pressure chronic ulcer of other part of right foot with necrosis of muscle (2) Chronic ulcer of left foot with fat layer exposed Status: Chronic Current Visit: Yes Code(s): L97.522 - Non-pressure chronic ulcer of other part of left foot with fat layer exposed (3) Malnutrition Status: Suspected Current Visit: Yes Code(s): E46 - Unspecified protein- calorie malnutrition (4) Osteomyelitis of right foot Status: Resolved Current Visit: Yes Code(s): M86.9 - Osteomyelitis, unspecified (5) Hammer toe of right foot Status: Chronic Current Visit: Yes Code(s): M20.41 - Other hammer toe(s) (acquired), right foot (6) Gangrene Status: Resolved Current Visit: Yes Code(s): I96 - Gangrene, not elsewhere classified (7) Delayed wound healing Status: Chronic Current Visit: Yes Code(s): T14.8XXD - Other injury of unspecified body region, subsequent encounter (8) PVD (peripheral vascular disease) Status: Chronic Current Visit: Yes Code(s): I73.9 - Peripheral vascular disease, unspecified (9) Type 2 diabetes mellitus with diabetic polyneuropathy Status: Chronic Current Visit: Yes Code(s): E11.42 - Type 2 diabetes mellitus with diabetic polyneuropathy (10) Obesity (BMI 30-39.9) Status: Chronic Current Visit: Yes Code(s): E66.9 - Obesity, unspecified (11) Tobacco use Status: Chronic Current Visit: Yes Code(s): Z72.0 - Tobacco use (12) Ulcer of right foot with fat layer exposed Status: Chronic Current Visit: Yes Code(s): L97.512 - Non-pressure chronic ulcer of other part of right foot with fat layer exposed Type of Wound Date of Service: 06/14/18 Chief Complaint: ulcers/dry gangrene to various toe of right and left foot. History of Wound: This 57-year-old diabetic male was referred to the wound healing center by Dr. Craft. He is now status post right fifth toe amputation secondary to acute wet gangrene with additional cellulitis; this was performed on June 05, 2018. The patient also has ulcers to the distal aspect of bilateral distal second toes. He is currently on a course of antibiotics under the management of infectious disease and continues to have a wound VAC applied to the open amputation site. He has about hyperbaric oxygen therapy at this time. He denies current fever, chill, nausea, vomiting. His right foot is minimally painful. Progress of Wound: Stable and improved - Physical Exam Vital Signs Temp Pulse Resp BP 97.9 F 88 20 H 145/84 H 06/14/18 15:11 06/14/18 15:11 06/14/18 15:11 06/14/18 15:11 General: Alert, Oriented x3, Cooperative Extremities: No cyanosis, Capillary Refill Less than 3 Seconds, No Calf Tenderness, Diminished Peripheral Pulses, Edema - Mild bilateral foot Skin: Ulcer/ Wound - No purulence, erythema, streaking, odor, eschar, or infection. The open amputation site is continuous with his previous ulcer and devitalized tissue to the lateral right forefoot. There is some retention sutures in place and probe to fifth metatarsal head bone. There is no interdigital maceration. His bilateral foot skin is hairless and atrophic. His distal bilateral second toe ulcers are superficial and granular base. Wound Measurements and Assessment WC - Nurse 1 - General Ulcer Measurement Start: 05/31/18 09:32 Freq: Status: Active Protocol: Activity Type Activity Date Activity User E-Sign Co-Sign Detail Recorded Client Recorded Date Recorded By Document 06/14/18 15:11 DL [id number] 06/14/18 15:30 DL 06/14/18 15:11 Wound Center Nurse 1 [Ulcer Assessment] #8 Right 5th Toe AMP SITE -Combined with other wound No -Current Size (cm) - Length 4 -Current Size (cm) - Width 2.6 -Current Size (cm) - Depth 2.2 -Total Square Cm 10.4 -Date of Last Picture (Recall this 06/14/18 field) -Photo Taken Yes -Epithelialization None Present -Tunneling No -Undermining/Tunneling No -Circular Undermining No -Exudate Amt Large (67-100%) -Exudate Type Serosanguineous -Wound Margin Distinct, Outline Attached -Granulation Amt Large (67-100%) -Granulation Quality Red -Slough/Fibrin Yes -Necrosis Amt Small (1-33%) -Necrotic Tissue Type Adherent Slough -Texture (Belle-wound Skin Appearance) Scarring -Moisture (Belle-wound Skin Appearance Maceration ) -Color (Belle-wound Skin Appearance) Erythema Palor -Temperature (Belle-wound Skin No Abnormality Appearance) (Pt Warm) -Tenderness on Palpation (Belle-wound No Skin Appearance) -Ulcer Cleansing Wound Cleanser -Foul Odor after Cleansing No -Anesthetic Used 4% Lidocaine Solution #5 Right 2nd Toe -Combined with other wound No -Current Size (cm) - Length 0.7 -Current Size (cm) - Width 0.6 -Current Size (cm) - Depth 0.1 -Total Square Cm 0.42 -Photo Taken No -Epithelialization None Present -Tunneling No -Undermining/Tunneling No -Circular Undermining No -Exudate Amt Small (1-33%) -Exudate Type Serosanguineous -Wound Margin Distinct, Outline Attached -Granulation Amt None Present (0 %) -Slough/Fibrin Yes -Necrosis Amt Large (67-100%) -Necrotic Tissue Type Adherent Slough -Structure Exposed N/A -Texture (Belle-wound Skin Appearance) Scarring -Moisture (Belle-wound Skin Appearance Dry/Scaly ) -Color (Belle-wound Skin Appearance) Assessed -Temperature (Belle-wound Skin No Abnormality Appearance) (Pt Warm) -Tenderness on Palpation (Belle-wound No Skin Appearance) -Ulcer Cleansing Wound Cleanser -Foul Odor after Cleansing No -Anesthetic Used 4% Lidocaine Solution #2 Left 2nd Toe -Combined with other wound No -Current Size (cm) - Length 0.4 -Current Size (cm) - Width 0.4 -Current Size (cm) - Depth 0.1 -Total Square Cm 0.16 -Photo Taken No -Epithelialization None Present -Tunneling No -Undermining/Tunneling No -Circular Undermining No -Exudate Amt Small (1-33%) -Exudate Type Serosanguineous -Wound Margin Distinct, Outline Attached -Granulation Amt Large (67-100%) -Granulation Quality Hurricane -Slough/Fibrin No -Necrosis Amt None Present (0 %) -Texture (Belle-wound Skin Appearance) Scarring -Moisture (Belle-wound Skin Appearance Maceration ) Dry/Scaly -Color (Belle-wound Skin Appearance) Palor -Temperature (Belle-wound Skin No Abnormality Appearance) (Pt Warm) -Tenderness on Palpation (Belle-wound No Skin Appearance) -Ulcer Cleansing Wound Cleanser -Foul Odor after Cleansing No -Anesthetic Used 4% Lidocaine Solution #1 Left Great Toe -Combined with other wound No -Current Size (cm) - Length 0.1 -Current Size (cm) - Width 0.1 -Current Size (cm) - Depth 0.1 -Total Square Cm 0.01 -Photo Taken No -Epithelialization Large 67-100% -Exudate Amt None Present (0 %) -Temperature (Belle-wound Skin No Abnormality Appearance) (Pt Warm) -Tenderness on Palpation (Belle-wound No Skin Appearance) -Ulcer Cleansing Wound Cleanser -Foul Odor after Cleansing No -Anesthetic Used 4% Lidocaine Solution WC - Nurse 2 - General Ulcer CM Notes Start: 05/31/18 09:32 Freq: Status: Active Protocol: Activity Type Activity Date Activity User E-Sign Co-Sign Detail Recorded Client Recorded Date Recorded By Document 06/14/18 15:58 [id number] 06/14/18 16:14 06/14/18 15:58 Wound Center Nurse 2 [Procedure/Treatment] #8 Right 5th Toe AMP SITE -Time 16:06 -Correct Patient Yes -Correct Side, Site, Position Yes -Correct Procedure Yes -Procedure Performed Yes -Type of Procedure Debridement -Clinical Debridement Subcutaneous -Post Debridement Size (cm) - Length 4.1 -Post Debridement Size (cm) - Width 2.7 -Post Debridement Size (cm) - Depth 2.2 -Total Square Cm 11.07 -Wound/Ulcer Outcome Not Healed -Ulcer Cleansing Rinsed/ Irrigated with Saline -Foul Odor after Cleansing No -Bioengineered Tissue No -Topical Lidocaine (%) 4 -Bleeding Controlled with Pressure -Treatment Response Procedure Tolerated Well #5 Right 2nd Toe -Time 16:07 -Correct Patient Yes -Correct Side, Site, Position Yes -Correct Procedure Yes -Procedure Performed Yes -Type of Procedure Debridement -Clinical Debridement Subcutaneous -Post Debridement Size (cm) - Length 0.8 -Post Debridement Size (cm) - Width 0.7 -Post Debridement Size (cm) - Depth 0.1 -Total Square Cm 0.56 -Wound/Ulcer Outcome Not Healed -Ulcer Cleansing Rinsed/ Irrigated with Saline -Foul Odor after Cleansing No -Bioengineered Tissue No -Topical Lidocaine (%) 4 -Bleeding Controlled with Pressure -Treatment Response Procedure Tolerated Well #2 Left 2nd Toe -Time 16:07 -Correct Patient Yes -Correct Side, Site, Position Yes -Correct Procedure Yes -Procedure Performed Yes -Type of Procedure Debridement -Clinical Debridement Subcutaneous -Post Debridement Size (cm) - Length 0.5 -Post Debridement Size (cm) - Width 0.5 -Post Debridement Size (cm) - Depth 0.1 -Total Square Cm 0.25 -Wound/Ulcer Outcome Not Healed -Ulcer Cleansing Rinsed/ Irrigated with Saline -Foul Odor after Cleansing No -Bioengineered Tissue No -Topical Lidocaine (%) 4 -Bleeding Controlled with Pressure -Treatment Response Procedure Tolerated Well #1 Left Great Toe -Time 16:09 -Correct Patient Yes -Correct Side, Site, Position Yes -Correct Procedure Yes -Procedure Performed Yes -Post Debridement Size (cm) - Length 0 -Post Debridement Size (cm) - Width 0 -Post Debridement Size (cm) - Depth 0 -Total Square Cm 0 -Wound/Ulcer Outcome Healed- Epithelialized -Ulcer Cleansing Rinsed/ Irrigated with Saline -Foul Odor after Cleansing No -Bioengineered Tissue No -Bleeding Controlled with NA -Treatment Response Procedure Tolerated Well [See Physician Procedure note for Specifics] Pain Scale: 0-10 Numeric [Pain] -Is Patient Pain Free? Yes Musculoskeletal: No Tenderness to Palpation of Joints or Extremities, Muscle Wasting, - - Dorsal contraction of lesser toes bilateral Neurological: - - Lack of epicritic sensation via light touch bilateral Psych/Mental Status: Normal Affect, Appropriate Debridement Note Post-Debridement Measurements/Treatment WC - Nurse 2 - General Ulcer CM Notes Start: 05/31/18 09:32 Freq: Status: Active Protocol: Activity Type Activity Date Activity User E-Sign Co-Sign Detail Recorded Client Recorded Date Recorded By Document 05/31/18 10:04 [id number] 05/31/18 10:06 Document 06/14/18 15:58 [id number] 06/14/18 16:14 TM 05/31/18 06/14/18 10:04 15:58 Wound Center Nurse 2 #8 Right 5th Toe AMP SITE -Time 10:04 16:06 -Correct Patient Yes Yes -Correct Side, Site, Position Yes Yes -Correct Procedure Yes Yes -Procedure Performed Yes Yes -Type of Procedure Debridement Debridement -Clinical Debridement Subcutaneous Subcutaneous -Post Debridement Size (cm) - Length 2.2 4.1 -Post Debridement Size (cm) - Width 2.2 2.7 -Post Debridement Size (cm) - Depth 0.1 2.2 -Total Square Cm 4.84 11.07 -Wound/Ulcer Outcome Not Healed Not Healed -Ulcer Cleansing Rinsed/ Rinsed/ Irrigated with Irrigated with Saline Saline -Foul Odor after Cleansing No No -Bioengineered Tissue No No -Topical Lidocaine (%) 4 -Bleeding Controlled with Pressure Pressure -Treatment Response Procedure Procedure Tolerated Well Tolerated Well #7 Right 4th Toe -Correct Patient No -Correct Side, Site, Position No -Correct Procedure No -Procedure Performed No -Post Debridement Size (cm) - Length 0 -Post Debridement Size (cm) - Width 0 -Post Debridement Size (cm) - Depth 0 -Total Square Cm 0 -Wound/Ulcer Outcome Healed- Epithelialized #6 Right 3rd Toe -Correct Patient No -Correct Side, Site, Position No -Correct Procedure No -Procedure Performed No -Post Debridement Size (cm) - Length 0 -Post Debridement Size (cm) - Width 0 -Post Debridement Size (cm) - Depth 0 -Total Square Cm 0 -Wound/Ulcer Outcome Healed- Epithelialized #5 Right 2nd Toe -Time 10:05 16:07 -Correct Patient Yes Yes -Correct Side, Site, Position Yes Yes -Correct Procedure Yes Yes -Procedure Performed Yes Yes -Type of Procedure Debridement Debridement -Clinical Debridement Subcutaneous Subcutaneous -Post Debridement Size (cm) - Length 1 0.8 -Post Debridement Size (cm) - Width 0.9 0.7 -Post Debridement Size (cm) - Depth 0.1 0.1 -Total Square Cm 0.9 0.56 -Wound/Ulcer Outcome Not Healed Not Healed -Ulcer Cleansing Rinsed/ Rinsed/ Irrigated with Irrigated with Saline Saline -Foul Odor after Cleansing No No -Bioengineered Tissue No No -Topical Lidocaine (%) 4 -Bleeding Controlled with Pressure Pressure -Treatment Response Procedure Procedure Tolerated Well Tolerated Well #2 Left 2nd Toe -Time 10:05 16:07 -Correct Patient Yes Yes -Correct Side, Site, Position Yes Yes -Correct Procedure Yes Yes -Procedure Performed Yes Yes -Type of Procedure Debridement Debridement -Clinical Debridement Subcutaneous Subcutaneous -Post Debridement Size (cm) - Length 0.8 0.5 -Post Debridement Size (cm) - Width 1.2 0.5 -Post Debridement Size (cm) - Depth 0.1 0.1 -Total Square Cm 0.96 0.25 -Wound/Ulcer Outcome Not Healed Not Healed -Ulcer Cleansing Rinsed/ Rinsed/ Irrigated with Irrigated with Saline Saline -Foul Odor after Cleansing No No -Bioengineered Tissue No No -Topical Lidocaine (%) 4 -Bleeding Controlled with Pressure Pressure -Treatment Response Procedure Procedure Tolerated Well Tolerated Well #1 Left Great Toe -Time 10:05 16:09 -Correct Patient Yes Yes -Correct Side, Site, Position Yes Yes -Correct Procedure Yes Yes -Procedure Performed Yes Yes -Type of Procedure Debridement -Clinical Debridement Subcutaneous -Post Debridement Size (cm) - Length 0.2 0 -Post Debridement Size (cm) - Width 0.2 0 -Post Debridement Size (cm) - Depth 0.1 0 -Total Square Cm 0.04 0 -Wound/Ulcer Outcome Not Healed Healed- Epithelialized -Ulcer Cleansing Rinsed/ Rinsed/ Irrigated with Irrigated with Saline Saline -Foul Odor after Cleansing No No -Bioengineered Tissue No No -Bleeding Controlled with Pressure NA -Treatment Response Procedure Procedure Tolerated Well Tolerated Well Pain Scale: 0-10 Numeric Is Patient Pain Free? Yes Yes Wound debrided: lateral forefoot Laterality: Right Wound Grade/Stage: grade 2 now that amputation has been completed Anesthesia Used: 4% Lidocaine Solution Depth: in the subcutaneous layer Percentage of wound debrided: 100 Instrument Used: #15 blade Tissue Removed: fibrous, devitalized subcutaneous, biofilm, slough Severity: Fat Layer Exposed Amount of bleeding with debridement: Mild Bleeding Controlled with: Pressure Patient tolerated procedure well - Additional Wound Wound debrided: distal 2 toe Laterality: Right Wound Grade/Stage: grade 1 Type of Debridement: Excisional debridement Anesthesia Used: 4% Lidocaine Solution Depth: in the subcutaneous layer Percentage of wound debrided: 100 Instrument Used: #15 blade Tissue Removed: fibrous, devitalized subcutaneous, biofilm, slough Severity: Fat Layer Exposed Amount of bleeding with debridement: Mild Bleeding Controlled with: Pressure Patient tolerated procedure: Patient tolerated procedure well - Additional Wound Wound debrided: distal 2 toe Laterality: Left Wound Grade/Stage: grade 1 Type of Debridement: Excisional debridement Anesthesia Used: 4% Lidocaine Solution Depth: in the subcutaneous layer Percentage of wound debrided: 100 Instrument Used: #15 blade Tissue Removed: fibrous, devitalized subcutaneous, biofilm, slough Severity: Fat Layer Exposed Amount of bleeding with debridement: Mild Bleeding Controlled with: Pressure Patient tolerated procedure: Patient tolerated procedure well Assessment/Plan Active Problems Delayed wound healing (Chronic) PVD (peripheral vascular disease) (Chronic) Ulcer of right foot with necrosis of muscle (Chronic) Chronic ulcer of left foot with fat layer exposed (Chronic) Hammer toe of right foot (Chronic) Ulcer of right foot with fat layer exposed (Chronic) Type 2 diabetes mellitus with diabetic polyneuropathy (Chronic) Obesity (BMI 30-39.9) (Chronic) Tobacco use (Chronic) Assessment: s/p fifth toe amputation of the right foot secondary to wet gangrene; this is not a grade 2 ulcer at this site. Peter grade 1 ulcer right and left 2 toe. DM with neuropathy. Delayed ulcer healing. PVD. Non compliance history Plan: I reviewed and discussed his case today. Debridement was performed as noted in the clinical panel. To continue with wound VAC to the right forefoot site ; 150 mmHg continuous. He was advised to change the other ulcer sites with hydrogel. Patient is to keep his feet clean and dry each day and was instructed again to not soak his feet. Patient has offloading surgical shoes in the areas of the ulcers. Place weight on the heels. He is to continue to wear these at all times when ambulation is necessary was instructed to try and keep pressure off of the ulcer sites. He had a recent fifth right toe amputation performed at the hospital with Dr. Craft. His intraoperative microbiology report demonstrated strep agalactiae, anaerobic cocci, Morganelli morganii sp sibonii. I recommended he make arrangements at work to allow him to keep pressure off of his ulcer sites. Patient was instructed to be nonweightbearing as much as possible during this healing process. The intraoperative pathology report are still pending including a clearance fragment. His last lab values included white blood cell count of 8.3, ESR 80, C-reactive protein 48.20. LEAS studies were completed while the patient was in the hospital and were read as possible mild small vessel disease of the right foot/toes. No additional intervention w as recommended. We can reconsider repeat x-rays in the future if necessary. I recommend a diet high in protein to this patient to help optimize ulcer healing potential. Smoking cessation was discussed with this patient again today. Patient was educated on all signs and symptoms of local and systemic infection and he was instructed to go to the emergency room immediately should he notice any of these. Patient is also interested in hyperbaric oxygen treatment and he does not have current osteomyelitis now that he has had surgical resection however I will confirm the criteria to get approved for hyperbaric oxygen. I recommend application of advanced wound care product, epi cord. Prior authorization will be initiated. All questions were answered to the patient's satisfaction during his visit today. Patient will follow-up in clinic in 1 week to check on progress, but was instructed to call the office sooner if needed. I answered all his questions.
== END 2018-06-18 23:59 ==
LOC: WC 14:45
PROVIDERS: Family Provider Family Medicine; PCP Family Medicine; Visit Provider Podiatrist
DX: E11.621 Type 2 diabetes mellitus with foot ulcer (principal); L97.522 Non-pressure chronic ulcer of other part of left foot with fat layer exposed; M20.41 Other hammer toe(s) (acquired), right foot; E11.42 Type 2 diabetes mellitus with diabetic polyneuropathy; E11.52 Type 2 diabetes mellitus with diabetic peripheral angiopathy with gangrene; E66.9 Obesity, unspecified; Z71.3 Dietary counseling and surveillance; Z72.0 Tobacco use; R60.0 Localized edema; L97.512 Non-pressure chronic ulcer of other part of right foot with fat layer exposed; Z91.19 Patient's noncompliance with other medical treatment and regimen
CPT/HCPCS: 11042; 87070; 87075; 87077; 87101; 87186; 87205; 97605

== ENCOUNTER 2018-07-03 16:16 | Inpatient (IN) | payer BC, SELFPAY ==
[2018-07-03 16:17] VITALS: BP 152/73; PULSE 50; RESP 16; TEMP 36.4; BMI 41.1
--- NOTE | 2018-07-03 16:37 | ED.VISSUMM ---
- ER Visit Summary Date of Service: 07/03/18 Chief Complaint: Right foot infection History of Present Illness: The patient is a 57 M who had his right fifth toe amputated 3 weeks ago. He started increased redness and odor around the wound for the past 3 days. He had subjective fever and chills last evening. Physical Examination: Vital signs unremarkable. Patient is afebrile here. Patient sitting upright in bed no acute distress. He is nontoxic appearing. Head neck examination normal. Heart is regular. Lung sounds clear. Abdomen is soft nontender. Right lower extremity examination reveals an open wound at the distal aspect of the fifth metatarsal. There is a foul-smelling green tinged film over the wound. Test Results: Right foot x-ray shows worsening erosion of the distal fifth metatarsal suspicious for advancing osteomyelitis. CBC and chemistry studies are remarkable only for glucose of 166. Blood cultures were obtained. Emergency Department Course and Treatment: Patient is treated with Zosyn and vancomycin. Aerobic and anaerobic cultures were obtained from the wound prior to initiation of antibiotics. I spoke with Dr. Craft who will see the patient in consult tomorrow morning. Hospitalist is on page for admission. Treatment Plan: [] Disposition: Admit Impression: Diabetic foot wound with osteomyelitis This note was generated with [employer] dictation software. It may contain incorrect words, spelling, and punctuation that were not noted in review of the chart prior to signing ED Disposition - Plan for ED Patient: Chief Complaint: Wound Referrals: Matias Graves MD [Primary Care Provider] -
--- NOTE | 2018-07-03 17:00 | RAD_ITS ---
STUDY: X-RAY - RIGHT FOOT CLINICAL: Male, 57 years old. Infection right lower extremity TECHNIQUE: 3 view(s) of the foot. COMPARISON: 06/05/2018 FINDINGS: There is a plantar spur. There are dense vascular calcifications. There is soft tissue swelling and bandaging material overlying the foot. Normal visualized subtalar, talonavicular, calcaneocuboid, tarsal and tarsometatarsal articulations. There has been been an amputation of the fifth digit at the metatarsophalangeal joint. Since prior study there is greater erosion possible fracture of the remaining distal fifth metatarsal. There is overlying soft tissue swelling. Normal metatarsophalangeal joint of the great toe. Normal tibial and fibular sesamoid bones. Normal interphalangeal joint of the great toe. Normal phalanges of the great toe. Normal second through fifth metatarsophalangeal joints. Normal remaining digits. RAD/Foot min 3 Views IMPRESSION: Worsening erosion of the distal fifth metatarsal suspicious for advancing osteomyelitis. Status post amputation of the fifth digit at the metatarsophalangeal joint. Electronically Signed: Sharmila Foreman MD at 17:20 EDT Tel , Service support ,
[2018-07-03] MEDS: 0.9% Normal Saline 1,000 ML 150 ML IV (17:05)
[2018-07-03 17:32] LABS: Anion Gap 7 (5-15); BUN 17 mg/dL (7-18); BUN/Creat Ratio 23.4 RATIO (10-20); Calcium,Total 9.1 mg/dL (8.5-10.1); Chloride 100 mmol/L (98-107); Creatinine, Serum 0.73 mg/dL (0.70-1.30); EST Glomerular Filtration Rate 119 mL/min (>60); Est Glom Filt Rate - Afr Amer 144 mL/min (>60); Estimated Creatinine Clearance 110.62 ml/min; Glucose 166 mg/dL (74-106); Sodium Level 136 mmol/L (136-145)
[2018-07-03 17:37] LABS: Absolute Lymphocyte Count 1.99 X10^3/ul (0.83-4.51); Absolute Neutrophil Count 3.8 X10^3/uL (2.0-7.7); Basophil# 0.03 X10^3/uL; Basophil% 0.5 % (0-1); Eosinophil# 0.22 X10^3/uL; Eosinophils% 3.3 % (0-5); Hematocrit 43.9 % (40-54); Hemoglobin 14.3 g/dl (13.0-16.5); Lymphocyte # 1.99 X10^3/ul (4.0); Lymphocyte % 30.3 % (19-41); Mean Corp Hgb Conc 32.6 g/gl (32-36); Mean Corpuscular Hgb 29.4 pg (27.0-32.0); Mean Corpuscular Volume 90.3 fL (80-94); Mean Platelet Vol. 9.9 fl (6.2-12.0); Monocyte# 0.49 X10^3/uL; Monocyte% 7.5 % (0-10); Neutrophil # 3.82 X10^3/uL (2.7-7.7); Neutrophil % 58.1 % (47-70); Platelet Count 180 K/mm3 (150-450); RBC Distribution Width CV 13.5 % (11.6-14.6); RBC Distribution Width SD 44.1 fl (35.1-43.9); Red Blood Count 4.86 M/mm3 (4.6-6.2); White Blood Count 6.6 K/mm3 (4.4-11.0)
[2018-07-03 17:43] LABS: POSITIVE COUNT NO; POSITIVE DIFFERENTIAL NO; POSITIVE MORPHOLOGY NO
[2018-07-03 18:26] VITALS: BP 148/80; PULSE 73; RESP 14; O2SAT 98
--- NOTE | 2018-07-03 18:43 | NURSING ---
FINGERPRINT SCANNER NOT WORKING. UNPLUGGED AND PLUG BACK IN. NO CHANGE. MEDICATIONS SCANNED, BUT COULD NO BE VERIFIED. MARINE TECHNICIAN INFORMED. Yola NORMAN RN.
[2018-07-03 18:44] VITALS: BP 149/93; PULSE 76; RESP 14; O2SAT 98
--- NOTE | 2018-07-03 18:45 | HP.PCM_ITS ---
Problem List (1) PVD (peripheral vascular disease) Status: Chronic (2) Chronic ulcer of left foot with fat layer exposed Status: Chronic (3) Ulcer of right foot with fat layer exposed Status: Chronic (4) Diabetic ulcer of right foot Status: Chronic (5) Diabetes mellitus type II, uncontrolled Status: Chronic Qualifiers: (6) Obesity (BMI 30-39.9) Status: Chronic (7) Tobacco use Status: Chronic History of Present Illness Date of Admission: 07/03/18 Chief Complaint: Right foot drainage, redness and bad smell. The patient is a 57 year old M with past medical history as mentioned above who underwent right foot debridement, right fifth toe amputation with resection of nonviable infected and necrotic soft tissue as well as bone for right fifth toe osteomyelitis and gangrene on June 05, 2018 presented to the emergency room because of right foot drainage with bad smell as well as redness. The patient mentioned that over the last 3 days, he has been having increasing redness and drainage from the surgical site of the right fifth toe amputation, associated with bad smell of the drainage as well as subjective fever and chills and without aggravating or relieving factors. He mentioned that after surgery and for 2 weeks, he did very fine and his wound was dry and clean. He has type 2 diabetes mellitus which seemed to be uncontrolled and he has been on high doses of long acting insulin and his most recent hemoglobin A1c was 8.7 last month. He had a history of diabetic neuropathy with frequent bilateral foot diabetic infections and wounds. He has a history of peripheral vascular disease without history of interventions in the past. He history of recent gangrene and osteomyelitis of the right fifth toe status post right fifth toe amputation, debridement of the necrotic tissue and he was on antibiotics up to 8 days after surgery. His wound culture from that surgery revealed Morganella morganii and Streptococcus agalactiae B as well as pseudomonas aeruginosa. Currently, he is not on antibiotics. In the emergency department, his vital signs were stable and he was afebrile. His routine blood work was unremarkable. X-ray of the right foot revealed worsening erosion of the distal fifth metatarsal suspicious for advancing osteomyelitis. He is being admitted for probable recurrent/worsening osteomyelitis of the right fifth metatarsal and surrounding cellulitis. 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 without evidence of necrosis (Chronic) Diabetic ulcer of right foot (Chronic) Type 2 diabetes mellitus with diabetic polyneuropathy (Chronic) Diabetes mellitus type II, uncontrolled (Chronic) Obesity (BMI 30-39.9) (Chronic) Tobacco use (Chronic) Allergies No Known Allergies Allergy (Verified 06/05/18 10:02) Home Medications: Ambulatory Orders Medication Instructions Recorded Insulin Aspart [Novolog Flexpen] See Protocol SC TIDCM 06/05/18 Insulin Glargine [Lantus SoloStar 90 units SC BID pen 06/08/18 Pen] Argin/Glut/Cahmb/Collag/Mv-Min 1 each PO BID 07/03/18 [Tripp Packet] Surgical History: - - Recent history of right fifth toe amputation/debridement. Psychiatric History: No pertinent psych hx Lives: Spouse/ Significant Other Smoking Status: Former smoker Alcohol: None Drugs: None - *Family History Maternal History Items: - - Other with a history of colon cancer, metastatic. Paternal History Items: - - Father with a history of prostate cancer. Review of Systems Constitutional: Reports: Fever. Denies: Anorexia, Chills, Weakness Eyes: Denies: Blurred vision, Double vision, Drainage, Pain HEENT: Denies: Difficulty Hearing, Ear Pain, Eye Pain, Nasal Congestion, Sore Throat Cardiovascular: Denies: Chest Pain, Chest Pressure, Chest Tightness, Heaviness, Palpitations, Syncope Respiratory: Denies: Cough, Pleuritic Pain, Shortness of Breath, Sputum production, Wheezing Gastrointestinal: Denies: Abdominal Pain, Diarrhea, Nausea, Vomiting Genitourinary: Denies: Dysuria, Frequency, Hematuria Musculoskeletal: Reports: Foot Pain. Denies: Arm Pain, Back Pain Skin: Denies: Dryness, Rash Neurological: Denies: Balance problems, Double vision, Change in Speech, Focal weakness, Incoordination, Numbness Psychiatric: Denies: Anxiety, Depression Endocrine: Denies: Change in Body Habitus, Polydipsia VTE Information - Inpt Only VTE Present on Admission: No VTE Mechan Device Prophylaxis: None VTE Pharm Prophylaxis ordered?: Yes - Physical Exam General: Alert, Oriented x3, Cooperative, No apparent distress HEENT: Atraumatic, PERRLA, EOMI, Normocephalic Oral: Moist Mucosa, No Gingival or Mucosal Lesions/ Ulcerations Neck: Supple, No JVD, Negative Carotid Bruits, Trachea Midline, Thyroid Normal Size and Texture Lungs: Clear to auscultation, Normal air movement, No rhonchi, No wheeze, No rales Cardiovascular: Regular rate, Regular Rhythm, Normal S1, Normal S2, PMI Normal Abdomen: Bowel Sounds Present, Soft, Non Tender, Non-Distended, No Hepato- splenomegaly, Obese, - - Small umbilical hernia. Extremities: No clubbing, No cyanosis, No edema, - - Right foot: Open wound on the lateral aspect of the foot at the fifth metatarsal measuring about 2 x 2 cm with surrounding erythema and bad smell, minimal drainage. Skin: No rashes, Ulcer/ Wound Lymphatic: No Cervical, Supraclavicular, or Inguinal Adenopathy Neurological: Cranial nerves II-XII grossly intact, Motor Exam 5/5 strength throughout Psych/Mental Status: Normal Affect, Appropriate, Alert and oriented to time, place, person, mood and affect Vital Signs Temp Pulse Resp BP Pulse Ox 97.5 F L 73 14 148/80 H 98 07/03/18 16:17 07/03/18 18:26 07/03/18 18:26 07/03/18 18:26 07/03/18 18:26 Oxygen Delivery Method Room Air Weight: 270 lb 8.82 oz Body Mass Index (BMI) 41.1 Finger Stick Blood Glucose 82 Laboratory Tests Past 24 Hrs 07/03/18 07/03/18 16:15 16:15 WBC 6.6 RBC 4.86 Hgb 14.3 Hct 43.9 MCV 90.3 MCH 29.4 MCHC 32.6 RDW 13.5 RDW Differential 44.1 H Plt Count 180 MPV 9.9 Immature Gran % (Auto) 0.300 Neut % (Auto) 58.1 Lymph % (Auto) 30.3 Mckean % (Auto) 7.5 Eos % (Auto) 3.3 Baso % (Auto) 0.5 Absolute Neuts (auto) 3.8 Absolute Lymphs (auto) 1.99 Total Counted Not Reportable Sodium 136 Potassium 4.0 Chloride 100 Carbon Dioxide 29.0 Anion Gap 7 BUN 17 Creatinine 0.73 Estim Creat Clear Calc 110.62 Est GFR (MDRD) Af Amer 144 Est GFR (MDRD) Non-Af 119 BUN/Creatinine Ratio 23.4 H Glucose 166 H Calcium 9.1 Clinical Impression(s) from Imaging Studies Foot X-Ray 07/03/18 17:00 IMPRESSION: Worsening erosion of the distal fifth metatarsal suspicious for advancing osteomyelitis. Status post amputation of the fifth digit at the metatarsophalangeal joint. Electronically Signed: Sharmila Foreman MD at 17:20 EDT Tel , Service support , Assessment/Plan This is a 57 years old male patient presented to the emergency room because of right foot redness, drainage with bad smell in context of history of recent right fifth toe amputation for right fifth toe gangrene and osteomyelitis and he is being admitted for probable worsening/recurrent right fifth toe osteomyelitis with surrounding cellulitis. #1 worsening/recurrent right fifth toe osteomyelitis/surrounding cellulitis: Patient had a recent history of right fifth toe amputation and debridement of the infected nonviable bone and soft tissue. Wound culture from that surgery revealed Morganella morganii, Streptococcus agalactiae and pseudomonas aeruginosa. Currently, patient is not on antibiotics. His vital signs are stable. He is afebrile, no leukocytosis. X-ray of the right foot revealed worsening erosion of the distal fifth metatarsal likely due to worsening osteomyelitis. Plan: Admit to [facility] floor, cardiac monitoring, IV fluids, Tylenol and OxyIR as needed for pain, IV antiemetics, IV vancomycin and Zosyn, wound and blood cultures, podiatry medicine consult, nonweightbearing. #2 uncontrolled type 2 diabetes mellitus: Most recent hemoglobin A1c was 8.7 last month. On admission, blood sugar was 166. Plan: ADA diet, Accu-Cheks q. before meals at bedtime, sliding scale, continue home doses of Lantus twice daily. #3 peripheral vascular disease: Without past history of interventions, no acute issues. #4 diabetic peripheral neuropathy: He is not on any treatment. Stable. #5 DVT prophylaxis: Subcu Lovenox. This note was generated with [employer] software. It may contain incorrect words, spelling, and punctuation that were not noted in checking the note before signing. Code Visit Inpatient E&M: 86358 Init Hosp L2
[2018-07-03 19:54] VITALS: BMI 41.1
[2018-07-03 19:57] VITALS: BP 162/82; PULSE 77; RESP 18; TEMP 36.7; O2SAT 100
[2018-07-03 20:20] VITALS: BMI 41.1
[2018-07-03 22:03] LABS: CRP 7.26 mg/L (0.0-3.0)
[2018-07-03 22:13] LABS: Erythrocyte Sedimentation Rate 62 mm/hr (0-20)
--- NOTE | 2018-07-03 22:49 | PCM.RX.CS ---
Consult Pharmacy has been consulted to manage selected antiobiotic: Vancomycin Type of Consult: New start Suspected Infection: Skin/Soft tissue Labs: Sodium 136 mmol/L (136-145) 07/03/18 16:15 Potassium 4.0 mmol/L (3.5-5.1) 07/03/18 16:15 Chloride 100 mmol/L (98-107) 07/03/18 16:15 Carbon Dioxide 29.0 mmol/L (21.0-32.0) 07/03/18 16:15 Anion Gap 7 (5-15) 07/03/18 16:15 BUN 17 mg/dL (7-18) 07/03/18 16:15 Creatinine 0.73 mg/dL (0.70-1.30) 07/03/18 16:15 Est GFR (MDRD) Af Amer 144 mL/min (>60) 07/03/18 16:15 Est GFR (MDRD) Non-Af 119 mL/min (>60) 07/03/18 16:15 BUN/Creatinine Ratio 23.4 RATIO (10-20) H 07/03/18 16:15 Glucose 166 mg/dL (74-106) H 07/03/18 16:15 Goal Trough: 10-15 mcg/mL Pharmacy Plan for Drug Dosing: Pharmacy Service will continue to monitor and adjust dosing as required. Medications Vancomycin HCl 1,750 mg/ (Sodium Chloride) 535 mls @ 250 mls/hr IV Q12H HELENA Piperacillin Sod/Tazobactam Sod (Zosyn) 3.375 gm in 50 mls @ 12.5 mls/hr IV Q8 HELENA Follow-Up Labs: Trough Vancomycin Labs to be done on [date and time ordered]: 03/05 @ 0700
[2018-07-03] MEDS: 0.9% Normal Saline 1,000 ML 100 ML IV (23:05)
[2018-07-03] MEDS: Piperacil/Tazobactam 3.375 GM/50 ML ML IV (23:09)
[2018-07-04] VITALS (15 sets, daily range): BP systolic 118–141; BP diastolic 54–88; PULSE 82–97; RESP 16–18; TEMP 36–36.9; O2SAT 94–100; BMI 41.1
[2018-07-04 00:10] LABS: Bedside Glucose 118 mg/dL (70-110)
[2018-07-04 01:00] LABS: M R Staph aureus DNA By PCR Negative (Negative); Probe Check PASS; Specimen Processing Control PASS; Staph aureus DNA By PCR NEGATIVE (Negative)
[2018-07-04] MEDS: MELATONIN 3 MG TABLET PO (01:19)
[2018-07-04 05:59] LABS: Absolute Neutrophil Count 3.2 X10^3/uL (2.0-7.7); Basophil# 0.04 X10^3/uL; Basophil% 0.7 % (0-1); Eosinophil# 0.31 X10^3/uL; Eosinophils% 5.2 % (0-5); Hematocrit 42.3 % (40-54); Lymphocyte % 30.5 % (19-41); Mean Corp Hgb Conc 33.1 g/gl (32-36); Mean Corpuscular Hgb 29.9 pg (27.0-32.0); Mean Corpuscular Volume 90.2 fL (80-94); Monocyte# 0.57 X10^3/uL; Monocyte% 9.6 % (0-10); Neutrophil # 3.17 X10^3/uL (2.7-7.7); Neutrophil % 53.7 % (47-70); Platelet Count 171 K/mm3 (150-450); RBC Distribution Width CV 13.4 % (11.6-14.6); Red Blood Count 4.69 M/mm3 (4.6-6.2); White Blood Count 5.9 K/mm3 (4.4-11.0)
[2018-07-04 06:00] LABS: POSITIVE COUNT NO; POSITIVE DIFFERENTIAL NO; POSITIVE MORPHOLOGY NO
[2018-07-04 06:03] LABS: Anion Gap 7 (5-15); BUN 14 mg/dL (7-18); BUN/Creat Ratio 18.3 RATIO (10-20); Calcium,Total 8.8 mg/dL (8.5-10.1); Chloride 105 mmol/L (98-107); Creatinine, Serum 0.76 mg/dL (0.70-1.30); EST Glomerular Filtration Rate 112 mL/min (>60); Est Glom Filt Rate - Afr Amer 136 mL/min (>60); Estimated Creatinine Clearance 106.25 ml/min; Glucose 110 mg/dL (74-106); Potassium 3.9 mmol/L (3.5-5.1); Sodium Level 141 mmol/L (136-145)
--- NOTE | 2018-07-04 07:30 | BON_PTH ---
PATIENT: OLY SMITH LOC: MS2 U#:[id number] AGE/SX: 57/M ROOM: [facility] [place] RE07/03/[address]: Dr. Melita Griffith MD : 1960 BED: 1 DIS: 07/06/2018 SPEC #: [id number] RECD: 07/04/18 16:24 STATUS: CIPRIANO REQ #: [id number] RHETT: 07/04/18 07:[address]: Parris Abarca DEPT: SURGICAL PATHOLOGY RECD BY: Dusty Fairchild ENTERED: 07/05/18 08:20 SP TYPE: Bone OTHR DR: MD Dr. Zurdo Kurtz MD Dr. Jeffrey Wunning, DPM MD Dr. Virgil Bui MD Tissues: A - Bone of foot, NOS B - Bone of foot, NOS Procedures: Decalcification bone/plaque Surgery Specimen Level III Comments: @ Ordering doctor for DEC edited from to @ by ESTHELA at 07/05/18 1252 @ Ordering doctor for SUIII edited from to @ by ESTHELA at 07/05/18 1252 @ Ordering doctor for SUIV edited from to @ by ESTHELA at 07/05/18 1252 @ Submitting doctor edited from to DR.[email or web address] Camejo by ESTHELA at 07/05/18 1252 HEADER OPERATION: Debridement partial fifth ray amputation, foot PRE-OP DIAGNOSIS: Osteomyelitis right fifth metatarsal TISSUE SUBMITTED: A - Fifth metatarsal, B - Clearance fragment of fifth metatarsal MICROSCOPIC DIAGNOSIS A. Fifth metatarsal: A piece of bone with acute osteomyelitis and reactive changes. B. Clearance fragment fifth metatarsal: A piece of bone, negative for acute osteomyelitis. SJ:raul 07/10/18 MICROSCOPIC DESCRIPTION Slides are reviewed. GROSS DESCRIPTION A - Received in fixative is one container labeled with the patient's name and designated fifth metatarsal. The specimen consists of a piece of bone measuring 3 x 1 x 1.5 cm. The entire specimen will be submitted in three cassettes after decalcification. B - Received in fixative is one container labeled with the patient's name and designated clearance fragment fifth metatarsal. The specimen consists of a piece of bone measuring 1 x 0.7 x 0.4 cm. The entire specimen is submitted in one cassette after decalcification. / BENJA:raul 07/05/18 TC:2 CPT: 01020 x2, 77202 x2
[2018-07-04] MEDS: Piperacil/Tazobactam 3.375 GM/50 ML ML IV ×3 (08:32→21:47)
--- NOTE | 2018-07-04 09:02 | PCM.CONS.GEN ---
Reason for Consult Date of Consultation: 07/04/18 Reason for Consultation: Right foot infection History of Present Illness: The patient is a 57 year old male with poorly/uncontrolled diabetes was readmitted for right foot infection. Patient underwent open right 5th digit amputation ~1 month ago due to gangrene osteomyelitis; has been following with Dr. Abarca and has been using wound vac. Plans were for revision, but reinfected with cellulitis and maloder necrosis noted while he was at Dr. Ewing's office, so he was sent back to ER and was admitted for further treatment and IV antibiotics. He states he has been staying off of his foot and has not got foot wet. New xrays were obtained in the ER and noted to have progressive bone changes - no gas in the tissues. WBC is normal. Patient is afebrile and stable. Cultures were obtained in ER which are pending. He relates he has not been controlling blood sugars or eating as he should. 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 without evidence of necrosis (Chronic) Diabetic ulcer of right foot (Chronic) Type 2 diabetes mellitus with diabetic polyneuropathy (Chronic) Diabetes mellitus type II, uncontrolled (Chronic) Obesity (BMI 30-39.9) (Chronic) Tobacco use (Chronic) Allergies No Known Allergies Allergy (Verified 06/05/18 10:02) Home Medications: Ambulatory Orders Medication Instructions Recorded Insulin Aspart [Novolog Flexpen] See Protocol SC TIDCM 06/05/18 Insulin Glargine [Lantus SoloStar 90 units SC BID pen 06/08/18 Pen] Argin/Glut/Cahmb/Collag/Mv-Min 1 each PO BID 07/03/18 [Tripp Packet] Surgical History: - - Recent history of right fifth toe amputation/debridement. Psychiatric History: No pertinent psych hx Lives: Spouse/ Significant Other Smoking Status: Former smoker Tobacco Use: Cigars Alcohol: None Drugs: None - *Family History Maternal History Items: - - Other with a history of colon cancer, metastatic. Paternal History Items: - - Father with a history of prostate cancer. Review of Systems Constitutional: Denies: Chills, Fever Cardiovascular: Denies: Chest Pain Respiratory: Denies: Shortness of Breath Gastrointestinal: Denies: Nausea, Vomiting Musculoskeletal: Denies: Foot Pain Skin: Reports: Wounds - Physical Exam General: Alert, Oriented x3, Cooperative, No apparent distress Extremities: No clubbing, Capillary Refill Less than 3 Seconds, No Calf Tenderness, - - Ulceration to the open 5th toe amputation site, wound base is soupy with fibrotic nonviable necrotic tissue present with maloder present, localized cellulitis around the margins and there is serous like drainage c/w infection, otherwise the margins are healthy and viable, no fluctuance, no evidence of acute ischemia to the foot, no blistering, no streaking, no visible abscess present to the right foot. Chronic diabetic neuropathy present to the foot bilateral. Ulceration distal left 2nd toe is healing very well. No POP or pain on ROM to the foot or ankle bilateral. Musculoskeletal: No Tenderness to Palpation of Joints or Extremities - Foot or ankle bilateral. Psych/Mental Status: Appropriate, Alert and oriented to time, place, person, mood and affect Vital Signs Temp Pulse Resp BP Pulse Ox 98.4 F 83 18 118/54 L 98 07/04/18 08:49 07/04/18 08:49 07/04/18 08:49 07/04/18 08:49 07/04/18 08:49 Oxygen Delivery Method Room Air Weight: 122.561 kg Body Mass Index (BMI) 41.1 Finger Stick Blood Glucose 82 Intake and Output for Last 24 Hours 07/02/18 07/03/18 07/04/18 23:59 23:59 23:59 Intake Total 2184 / 2184 Output Total 2450 / 2450 Balance -266 / -266 Microbiology Past 72 Hours 07/03/18 16:51 Gram Stain - Final Wound - Right Foot Laboratory Tests Past 24 Hrs 07/03/18 07/03/18 07/03/18 16:15 16:15 16:15 WBC 6.6 RBC 4.86 Hgb 14.3 Hct 43.9 MCV 90.3 MCH 29.4 MCHC 32.6 RDW 13.5 RDW Differential 44.1 H Plt Count 180 MPV 9.9 Immature Gran % (Auto) 0.300 Neut % (Auto) 58.1 Lymph % (Auto) 30.3 Sequoyah % (Auto) 7.5 Eos % (Auto) 3.3 Baso % (Auto) 0.5 Absolute Neuts (auto) 3.8 Absolute Lymphs (auto) 1.99 Total Counted Not Reportable ESR 62 H Sodium 136 Potassium 4.0 Chloride 100 Carbon Dioxide 29.0 Anion Gap 7 BUN 17 Creatinine 0.73 Estim Creat Clear Calc 110.62 Est GFR (MDRD) Af Amer 144 Est GFR (MDRD) Non-Af 119 BUN/Creatinine Ratio 23.4 H Glucose 166 H Calcium 9.1 C-React Prot Ext Range S.aureus Protein A PCR MRSA (PCR) 07/03/18 07/03/18 07/04/18 16:15 16:51 05:30 WBC 5.9 RBC 4.69 Hgb 14.0 Hct 42.3 MCV 90.2 MCH 29.9 MCHC 33.1 RDW 13.4 RDW Differential 44.0 H Plt Count 171 MPV 10.0 Immature Gran % (Auto) 0.300 Neut % (Auto) 53.7 Lymph % (Auto) 30.5 Sequoyah % (Auto) 9.6 Eos % (Auto) 5.2 H Baso % (Auto) 0.7 Absolute Neuts (auto) 3.2 Absolute Lymphs (auto) 1.80 Total Counted Not Reportable ESR Sodium Potassium Chloride Carbon Dioxide Anion Gap BUN Creatinine Estim Creat Clear Calc Est GFR (MDRD) Af Amer Est GFR (MDRD) Non-Af BUN/Creatinine Ratio Glucose Calcium C-React Prot Ext Range 7.26 H S.aureus Protein A PCR NEGATIVE MRSA (PCR) Negative 07/04/18 05:30 WBC RBC Hgb Hct MCV MCH MCHC RDW RDW Differential Plt Count MPV Immature Gran % (Auto) Neut % (Auto) Lymph % (Auto) Sequoyah % (Auto) Eos % (Auto) Baso % (Auto) Absolute Neuts (auto) Absolute Lymphs (auto) Total Counted ESR Sodium 141 Potassium 3.9 Chloride 105 Carbon Dioxide 29.0 Anion Gap 7 BUN 14 Creatinine 0.76 Estim Creat Clear Calc 106.25 Est GFR (MDRD) Af Amer 136 Est GFR (MDRD) Non-Af 112 BUN/Creatinine Ratio 18.3 Glucose 110 H Calcium 8.8 C-React Prot Ext Range S.aureus Protein A PCR MRSA (PCR) POC Glucose 07/03/18 23:07 POC Glucose 118 H Assessment/Plan Gangrene right 5th toe s/p amputation now with reinfection and osteomyelitis 5th metatarsal Peripheral vascular disease - no evidence of acute ischemia Diabetes w/ peripheral neuropathy Re-evaluation performed. Reviewed diagnostic data. Given findings will plan to take to OR for debridement and further 5th ray resection amputation. This was discussed with patient, reviewed rationale of this, possible benefits vs risks and alternative options. He agreed with this plan to go to OR. We will plan to proceed with this today (afternoon). He is to be NPO at this time. Cultures have been obtained and results pending, continue with IV antibiotics. No weightbearing right foot. Betadine solution was painted to the wound site right foot and overlying gauze, kerlix and alexandra dressing applied.
--- NOTE | 2018-07-04 09:33 | PCM.PN.HOSP ---
Subjective: Patient was seen and examined. Vitals are stable. Admitted last night with right foot osteomyelitis. Going for surgery today by podiatry. Objective: Physical Exam General: Alert, Oriented x3, Cooperative, No apparent distress HEENT: Atraumatic, PERRLA, EOMI, Normocephalic Oral: Moist Mucosa, No Gingival or Mucosal Lesions/ Ulcerations Neck: Supple, No JVD, Negative Carotid Bruits, Trachea Midline, Thyroid Normal Size and Texture Lungs: Clear to auscultation, Normal air movement, No rhonchi, No wheeze, No rales Cardiovascular: Regular rate, Regular Rhythm, Normal S1, Normal S2, PMI Normal Abdomen: Bowel Sounds Present, Soft, Non Tender, Non-Distended, No Hepato-splenomegaly, Obese, - - Small umbilical hernia. Extremities: No clubbing, No cyanosis, No edema, - - Right foot: Open wound on the lateral aspect of the foot at the fifth metatarsal measuring about 2 x 2 cm with surrounding erythema and bad smell, minimal drainage. Skin: No rashes, Ulcer/ Wound Lymphatic: No Cervical, Supraclavicular, or Inguinal Adenopathy Neurological: Cranial nerves II-XII grossly intact, Motor Exam 5/5 strength throughout Psych/Mental Status: Normal Affect, Appropriate, Alert and oriented to time, place, person, mood and affect Vitals/I&O's: Vital Signs Temp Pulse Resp BP Pulse Ox 98.4 F 83 18 118/54 L 98 07/04/18 08:49 07/04/18 08:49 07/04/18 08:49 07/04/18 08:49 07/04/18 08:49 Oxygen Delivery Method Room Air Weight: 122.561 kg Body Mass Index (BMI) 41.1 Finger Stick Blood Glucose 82 Intake and Output for Last 24 Hours 07/02/18 07/03/18 07/04/18 23:59 23:59 23:59 Intake Total 2184 / 2184 Output Total 2450 / 2450 Balance -266 / -266 Microbiology Past 72 Hours 07/03/18 16:51 Wound - Right Foot Gram Stain - Final Laboratory Results 07/03/18 16:15: WBC 6.6, RBC 4.86, Hgb 14.3, Hct 43.9, MCV 90.3, MCH 29.4, MCHC 32.6, RDW 13.5, RDW Differential 44.1 H, Plt Count 180, MPV 9.9, Immature Gran % (Auto) 0.300, Neut % (Auto) 58.1, Lymph % (Auto) 30.3, Bee % (Auto) 7.5, Eos % (Auto) 3.3, Baso % (Auto) 0.5, Absolute Neuts (auto) 3.8, Absolute Lymphs (auto) 1.99, Total Counted Not Reportable 07/03/18 16:15: Sodium 136, Potassium 4.0, Chloride 100, Carbon Dioxide 29.0, Anion Gap 7, BUN 17, Creatinine 0.73, Estim Creat Clear Calc 110.62, Est GFR (MDRD) Af Amer 144, Est GFR (MDRD) Non-Af 119, BUN/Creatinine Ratio 23.4 H, Glucose 166 H, Calcium 9.1 07/03/18 16:15: ESR 62 H 07/03/18 16:15: C-React Prot Ext Range 7.26 H 07/03/18 16:51: S.aureus Protein A PCR NEGATIVE, MRSA (PCR) Negative 07/03/18 23:07: POC Glucose 118 H 07/04/18 05:30: WBC 5.9, RBC 4.69, Hgb 14.0, Hct 42.3, MCV 90.2, MCH 29.9, MCHC 33.1, RDW 13.4, RDW Differential 44.0 H, Plt Count 171, MPV 10.0, Immature Gran % (Auto) 0.300, Neut % (Auto) 53.7, Lymph % (Auto) 30.5, Bee % (Auto) 9.6, Eos % (Auto) 5.2 H, Baso % (Auto) 0.7, Absolute Neuts (auto) 3.2, Absolute Lymphs (auto) 1.80, Total Counted Not Reportable 07/04/18 05:30: Sodium 141, Potassium 3.9, Chloride 105, Carbon Dioxide 29.0, Anion Gap 7, BUN 14, Creatinine 0.76, Estim Creat Clear Calc 106.25, Est GFR (MDRD) Af Amer 136, Est GFR (MDRD) Non-Af 112, BUN/Creatinine Ratio 18.3, Glucose 110 H, Calcium 8.8 Current Medications Acetaminophen (Tylenol) 650 mg PO Q6H PRN PRN PRN Reason: Fever, headache, pain Enoxaparin Sodium (Lovenox) 40 mg SC DAILY [facility] Last Admin: 07/04/18 08:50 Dose: Not Given Sodium Chloride () 250 mls @ 15 mls/hr IV .[id number] PRN PRN Reason: SALINE FLUSH Piperacillin Sod/Tazobactam Sod (Zosyn) 3.375 gm in 50 mls @ 12.5 mls/hr IV Q8 [facility] Last Admin: 07/04/18 08:32 Dose: 12.5 mls/hr Vancomycin HCl 1,750 mg/ (Sodium Chloride) 535 mls @ 250 mls/hr IV Q12H [facility] Vancomycin IV Pharmacy to Dose (1 ea/ Sodium Chloride) 500 mls @ 250 mls/hr IV X1 PRN; Protocol PRN Reason: Rx to Dose Insulin Glargine (Lantus (Bkc)) 90 units SC BID [facility] Last Admin: 07/03/18 23:09 Dose: 35 u Insulin Human Lispro (Humalog Kwikpen (Bkc)) 0 unit SC ACHS [facility]; Protocol Last Admin: 07/04/18 08:35 Dose: Not Given Magnesium Hydroxide (Milk Of Magnesia) 30 ml PO DAILY PRN PRN PRN Reason: Constipation Nutritional Formula (Lactose Free) (Glucerna Shake) 120 ml PO 4X/DAY [facility] Last Admin: 07/04/18 08:50 Dose: Not Given Ondansetron HCl (Zofran) 4 mg IV Q8H PRN PRN PRN Reason: NAUSEA/VOMITING Oxycodone HCl (Oxyir) 5 mg PO Q6H PRN PRN PRN Reason: SEVERE PAIN (6-10/10) Sodium Chloride () 5 - 30 ml IV UD PRN PRN Reason: SALINE FLUSH Medical Necessity - Tobacco Use Smoking Status: Former smoker Tobacco Use: Cigars Assessment/Plan 57-year-old with past medical history of type II DM, complicated by peripheral neuropathy, PAD, recently underwent right fifth toe excision for osteomyelitis and gangrene comes in with right foot redness, drainage concerning for right fifth distal metatarsal osteomyelitis 1. Right fifth distal metatarsal osteomyelitis/cellulitis/wound infection, blood and wound cultures are pending, stable vitals. Previous wound cultures grew Morganella morganii and strep agalactiae On IV Vancomycin and Zosyn, labs in am. 2. Type II DM,complicated by peripheral neuropathy uncontrolled, HbA1c is 8.7, blood sugars are fairly controlled, on Lantus 90 units twice daily as well as insulin sliding scale with Accu-Cheks. Insulin on hold this morning 3. PAD, noted on ABIs done in April 2018, will start patient on aspirin, will check lipid profile 4. DVT prophylaxis with Lovenox SC Code Visit Inpatient E&M: [id number] Subs Hosp L2
--- NOTE | 2018-07-04 09:43 | PN_ITS ---
Subjective: Patient was seen and examined. Vitals are stable. Admitted last night with right foot osteomyelitis. Going for surgery today by podiatry. Objective: Physical Exam General: Alert, Oriented x3, Cooperative, No apparent distress HEENT: Atraumatic, PERRLA, EOMI, Normocephalic Oral: Moist Mucosa, No Gingival or Mucosal Lesions/ Ulcerations Neck: Supple, No JVD, Negative Carotid Bruits, Trachea Midline, Thyroid Normal Size and Texture Lungs: Clear to auscultation, Normal air movement, No rhonchi, No wheeze, No rales Cardiovascular: Regular rate, Regular Rhythm, Normal S1, Normal S2, PMI Normal Abdomen: Bowel Sounds Present, Soft, Non Tender, Non-Distended, No Hepato- splenomegaly, Obese, - - Small umbilical hernia. Extremities: No clubbing, No cyanosis, No edema, - - Right foot: Open wound on the lateral aspect of the foot at the fifth metatarsal measuring about 2 x 2 cm with surrounding erythema and bad smell, minimal drainage. Skin: No rashes, Ulcer/ Wound Lymphatic: No Cervical, Supraclavicular, or Inguinal Adenopathy Neurological: Cranial nerves II-XII grossly intact, Motor Exam 5/5 strength throughout Psych/Mental Status: Normal Affect, Appropriate, Alert and oriented to time, place, person, mood and affect Vitals/I&O's: Vital Signs Temp Pulse Resp BP Pulse Ox 98.4 F 83 18 118/54 L 98 07/04/18 08:49 07/04/18 08:49 07/04/18 08:49 07/04/18 08:49 07/04/18 08:49 Oxygen Delivery Method Room Air Weight: 122.561 kg Body Mass Index (BMI) 41.1 Finger Stick Blood Glucose 82 Intake and Output for Last 24 Hours 07/02/18 07/03/18 07/04/18 23:59 23:59 23:59 Intake Total 2184 / 2184 Output Total 2450 / 2450 Balance -266 / -266 Microbiology Past 72 Hours 07/03/18 16:51 Wound - Right Foot Gram Stain - Final Laboratory Results 07/03/18 16:15: WBC 6.6, RBC 4.86, Hgb 14.3, Hct 43.9, MCV 90.3, MCH 29.4, MCHC 32.6, RDW 13.5, RDW Differential 44.1 H, Plt Count 180, MPV 9.9, Immature Gran % (Auto) 0.300, Neut % (Auto) 58.1, Lymph % (Auto) 30.3, [place] % (Auto) 7.5, Eos % (Auto) 3.3, Baso % (Auto) 0.5, Absolute Neuts (auto) 3.8, Absolute Lymphs (auto) 1.99, Total Counted Not Reportable 07/03/18 16:15: Sodium 136, Potassium 4.0, Chloride 100, Carbon Dioxide 29.0, Anion Gap 7, BUN 17, Creatinine 0.73, Estim Creat Clear Calc 110.62, Est GFR (MDRD) Af Amer 144, Est GFR (MDRD) Non-Af 119, BUN/Creatinine Ratio 23.4 H, Glucose 166 H, Calcium 9.1 07/03/18 16:15: ESR 62 H 07/03/18 16:15: C-React Prot Ext Range 7.26 H 07/03/18 16:51: S.aureus Protein A PCR NEGATIVE, MRSA (PCR) Negative 07/03/18 23:07: POC Glucose 118 H 07/04/18 05:30: WBC 5.9, RBC 4.69, Hgb 14.0, Hct 42.3, MCV 90.2, MCH 29.9, MCHC 33.1, RDW 13.4, RDW Differential 44.0 H, Plt Count 171, MPV 10.0, Immature Gran % (Auto) 0.300, Neut % (Auto) 53.7, Lymph % (Auto) 30.5, [place] % (Auto) 9.6, Eos % (Auto) 5.2 H, Baso % (Auto) 0.7, Absolute Neuts (auto) 3.2, Absolute Lymphs (auto) 1.80, Total Counted Not Reportable 07/04/18 05:30: Sodium 141, Potassium 3.9, Chloride 105, Carbon Dioxide 29.0, Anion Gap 7, BUN 14, Creatinine 0.76, Estim Creat Clear Calc 106.25, Est GFR (MDRD) Af Amer 136, Est GFR (MDRD) Non-Af 112, BUN/Creatinine Ratio 18.3, Glucose 110 H, Calcium 8.8 Current Medications Acetaminophen (Tylenol) 650 mg PO Q6H PRN PRN PRN Reason: Fever, headache, pain Enoxaparin Sodium (Lovenox) 40 mg SC DAILY [facility] Last Admin: 07/04/18 08:50 Dose: Not Given Sodium Chloride () 250 mls @ 15 mls/hr IV .[id number] PRN PRN Reason: SALINE FLUSH Piperacillin Sod/Tazobactam Sod (Zosyn) 3.375 gm in 50 mls @ 12.5 mls/hr IV Q8 [facility] Last Admin: 07/04/18 08:32 Dose: 12.5 mls/hr Vancomycin HCl 1,750 mg/ (Sodium Chloride) 535 mls @ 250 mls/hr IV Q12H [facility] Vancomycin IV Pharmacy to Dose (1 ea/ Sodium Chloride) 500 mls @ 250 mls/hr IV X1 PRN; Protocol PRN Reason: Rx to Dose Insulin Glargine (Lantus (Bkc)) 90 units SC BID [facility] Last Admin: 07/03/18 23:09 Dose: 35 u Insulin Human Lispro (Humalog Kwikpen (Bkc)) 0 unit SC ACHS [facility]; Protocol Last Admin: 07/04/18 08:35 Dose: Not Given Magnesium Hydroxide (Milk Of Magnesia) 30 ml PO DAILY PRN PRN PRN Reason: Constipation Nutritional Formula (Lactose Free) (Glucerna Shake) 120 ml PO 4X/DAY [facility] Last Admin: 07/04/18 08:50 Dose: Not Given Ondansetron HCl (Zofran) 4 mg IV Q8H PRN PRN PRN Reason: NAUSEA/VOMITING Oxycodone HCl (Oxyir) 5 mg PO Q6H PRN PRN PRN Reason: SEVERE PAIN (6-10/10) Sodium Chloride () 5 - 30 ml IV UD PRN PRN Reason: SALINE FLUSH Medical Necessity - Tobacco Use Smoking Status: Former smoker Tobacco Use: Cigars Assessment/Plan 57-year-old with past medical history of type II DM, complicated by peripheral neuropathy, PAD, recently underwent right fifth toe excision for osteomyelitis and gangrene comes in with right foot redness, drainage concerning for right fifth distal metatarsal osteomyelitis 1. Right fifth distal metatarsal osteomyelitis/cellulitis/wound infection, blood and wound cultures are pending, stable vitals. Previous wound cultures grew Morganella morganii and strep agalactiae On IV Vancomycin and Zosyn, labs in am. 2. Type II DM,complicated by peripheral neuropathy uncontrolled, HbA1c is 8.7, blood sugars are fairly controlled, on Lantus 90 units twice daily as well as insulin sliding scale with Accu-Cheks. Insulin on hold this morning 3. PAD, noted on ABIs done in April 2018, will start patient on aspirin, will check lipid profile 4. DVT prophylaxis with Lovenox SC Code Visit Inpatient E&M: [id number] Subs Hosp L2
--- NOTE | 2018-07-04 10:42 | CON.PCM_ITS ---
Problem List (1) Diabetic ulcer of right foot Status: Chronic Reason for Consult: osteo Consulted by: Dr. Griffith History of Present Illness: The patient is a 57 year old M with DM neuropathy, PVD, and recurrent foot infections. Last admit, had R 5th toe resection due to gangrene. Surg margins were clear, discharged on 2 weeks of po levaquin and flagyl. Foot was doing ok, following at wound care center. Over past week, starting to notice more odor, more dampness, then over past few days some chills, not feeling well, some surrounding redness. Came to ED, wound cx sent, started on vanc/zosyn. OR planned for today. Full ROS performed and neg except as noted above. 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 without evidence of necrosis (Chronic) Diabetic ulcer of right foot (Chronic) Type 2 diabetes mellitus with diabetic polyneuropathy (Chronic) Diabetes mellitus type II, uncontrolled (Chronic) Obesity (BMI 30-39.9) (Chronic) Tobacco use (Chronic) Allergies/Adverse Reactions: Allergies No Known Allergies Allergy (Verified 06/05/18 10:02) Home Medications: Ambulatory Orders Medication Instructions Recorded Insulin Aspart [Novolog Flexpen] See Protocol SC TIDCM 06/05/18 Insulin Glargine [Lantus SoloStar 90 units SC BID pen 06/08/18 Pen] Argin/Glut/Cahmb/Collag/Mv-Min 1 each PO BID 07/03/18 [Tripp Packet] - Social History SMOKING STATUS:: Former smoker Vital Signs Temp Pulse Resp BP Pulse Ox 98.4 F 83 18 118/54 L 98 07/04/18 08:49 07/04/18 08:49 07/04/18 08:49 07/04/18 08:49 07/04/18 08:49 Oxygen Delivery Method Room Air Weight: 122.561 kg Body Mass Index (BMI) 41.1 Finger Stick Blood Glucose 82 Microbiology Past 72 Hours 07/03/18 16:51 Gram Stain - Final Wound - Right Foot Wound Culture - Preliminary Gram negative gene Streptococcus group B Laboratory Tests Past 24 Hrs 07/03/18 07/03/18 07/03/18 16:15 16:15 16:15 WBC 6.6 RBC 4.86 Hgb 14.3 Hct 43.9 MCV 90.3 MCH 29.4 MCHC 32.6 RDW 13.5 RDW Differential 44.1 H Plt Count 180 MPV 9.9 Immature Gran % (Auto) 0.300 Neut % (Auto) 58.1 Lymph % (Auto) 30.3 [place] % (Auto) 7.5 Eos % (Auto) 3.3 Baso % (Auto) 0.5 Absolute Neuts (auto) 3.8 Absolute Lymphs (auto) 1.99 Total Counted Not Reportable ESR 62 H Sodium 136 Potassium 4.0 Chloride 100 Carbon Dioxide 29.0 Anion Gap 7 BUN 17 Creatinine 0.73 Estim Creat Clear Calc 110.62 Est GFR (MDRD) Af Amer 144 Est GFR (MDRD) Non-Af 119 BUN/Creatinine Ratio 23.4 H Glucose 166 H Calcium 9.1 C-React Prot Ext Range S.aureus Protein A PCR MRSA (PCR) 07/03/18 07/03/18 07/04/18 16:15 16:51 05:30 WBC 5.9 RBC 4.69 Hgb 14.0 Hct 42.3 MCV 90.2 MCH 29.9 MCHC 33.1 RDW 13.4 RDW Differential 44.0 H Plt Count 171 MPV 10.0 Immature Gran % (Auto) 0.300 Neut % (Auto) 53.7 Lymph % (Auto) 30.5 [place] % (Auto) 9.6 Eos % (Auto) 5.2 H Baso % (Auto) 0.7 Absolute Neuts (auto) 3.2 Absolute Lymphs (auto) 1.80 Total Counted Not Reportable ESR Sodium Potassium Chloride Carbon Dioxide Anion Gap BUN Creatinine Estim Creat Clear Calc Est GFR (MDRD) Af Amer Est GFR (MDRD) Non-Af BUN/Creatinine Ratio Glucose Calcium C-React Prot Ext Range 7.26 H S.aureus Protein A PCR NEGATIVE MRSA (PCR) Negative 07/04/18 05:30 WBC RBC Hgb Hct MCV MCH MCHC RDW RDW Differential Plt Count MPV Immature Gran % (Auto) Neut % (Auto) Lymph % (Auto) [place] % (Auto) Eos % (Auto) Baso % (Auto) Absolute Neuts (auto) Absolute Lymphs (auto) Total Counted ESR Sodium 141 Potassium 3.9 Chloride 105 Carbon Dioxide 29.0 Anion Gap 7 BUN 14 Creatinine 0.76 Estim Creat Clear Calc 106.25 Est GFR (MDRD) Af Amer 136 Est GFR (MDRD) Non-Af 112 BUN/Creatinine Ratio 18.3 Glucose 110 H Calcium 8.8 C-React Prot Ext Range S.aureus Protein A PCR MRSA (PCR) - Other Studies Radiology: [] reviewed Other Studies: [] Route of nutrition/ use of supplements: [] Nutritional Intake: [] IV Site: [] White Catheter: [] - Physical Exam General: Alert, Oriented x3, Cooperative, No apparent distress HEENT: Atraumatic, PERRLA, EOMI Neck: Supple, No Nodes Lungs: Clear to auscultation, Normal air movement Cardiovascular: Regular rate, Regular Rhythm Abdomen: Soft, Non Tender, Non-Distended Extremities: Edema - some R lower leg Skin: Ulcer/ Wound - R foot wrapped, - - dry scabs on 5 2nd toe and L 2nd toe IV Site: Peripheral, without redness Musculoskeletal: No Tenderness to Palpation of Joints or Extremities Neurological: Cranial nerves II-XII grossly intact, - - peripheral neuropathy - Assessment/Plan Antibiotics: [] Assessment/Plan: [] R foot DM infection s/p 5th toe resection 06/05/18 for osteo. Surg cx had clear margins. He grew 06/05 morganella and GBS with anaerobes in other OR specimen. 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 Now with wound infection, agree with vanc/zosyn and surgical debridement today. Suspect he will need picc for 6 week course of iv abx, but will see results of surgery and cxs. Will follow, thank you.
--- NOTE | 2018-07-04 10:46 | EKG12_ITS ---
Test Reason : PREOP Blood Pressure : / mmHG Vent. Rate : 080 BPM Atrial Rate : 080 BPM P-R Int : 156 ms QRS Dur : 150 ms QT Int : 420 ms P-R-T Axes : 033 -06 016 degrees QTc Int : 484 ms Normal sinus rhythm Right bundle branch block Abnormal ECG When compared with ECG of 05-JUN-2018 12:04, No significant change was found Confirmed by ALEXANDRO PETIT ([id number]), image editor ANGELO FREGOSO ([id number]) on 07/18/2018 11:35:43 AM Referred By: PIETRO Confirmed By:ALEXANDRO PETIT
--- NOTE | 2018-07-04 11:00 | CASEMGMT ---
KIKA ROD INITIAL REVIEW ASSESSMENT Re-admission Note: Pt was admitted 06/05/18 thru for rt 5th toe gangrene and underwent amputation of rt 5th toe. D/C'd home on PO antibiotics and wound vac w/ [facility] retirement services. Pt also following @ Wound Center. Pt re-admitted 07/03/18 for infected rt foot diabetic wound w/osteomyelitis. D/C PLAN: Home w/resumption of HHC: PT and IV antibiotics. Face to Face with patient for initial transition planning/care coordination assessment. KIKA ROD introduced self and role at [facility]. Care providers, pharmacy, and demographics verified. PCP:Dr Matias Graves Preferred Pharmacy: [facility]: [place], [facility] Retail on day of discharge only. Insurance: Shelly Prescription Benefit: Yes Living Will/HPOA: States does not have LW or HPOA. Offered/accepted Adv Directive informational packet but states does not wish to talk to SW about this at this time. Living Arrangements: Lives @ home with his . Live in a private one-story home w/ramped entrance. Pt states he is independent with dressing and toileting. assists with bathing as needed, meals, and chores Transportation: Pt states he still drives some. assists with transportation as well. DME: Pt has a shower chair, cane, electric w/c, knee walker, crutches, and hospital bed. States he would like to get a longer ramp put in. Denies other DME needs at this time. HHC: States is currently receiving [facility] services. Call placed to [facility] and confirmed pt is current with them and receiving retirement services. Resumption order placed. Pt's plans on D/C: Pt wishes to return home w/resumption of [facility] services. Aware plan is for IV atb's x [address] Pike. Pt states he is willing to learn how to administer the antibiotic at home and states his would also be able to assist as well. Pt states has no preference of infusion company. CM to follow for any further discharge planning needs that may arise. Radha LARSONN KIKA ROD
[2018-07-04 12:20] LABS: Bedside Glucose 117 mg/dL (70-110)
[2018-07-04] MEDS: Bupivacaine Mpf 0.5% 30 ML VIAL (13:30)
--- NOTE | 2018-07-04 15:11 | RAD_ITS ---
STUDY: Intraoperative fluoroscopy LEFT FOOT CLINICAL: Male, 57 years old. Intraoperative fluoroscopy TECHNIQUE: 3 view(s) of the foot. COMPARISON: None. FINDINGS: 3 fluoroscopic views of the toes are provided. There is amputation of the fifth metatarsal. The fluoroscopy time recorded was 0.9 seconds. RAD/Foot min 3 Views IMPRESSION: Intraoperative fluoroscopy during left foot procedure using 0.9 seconds of fluoroscopy time. Electronically Signed: Sharmila Foreman MD at 16:50 EDT Tel , Service support ,
--- NOTE | 2018-07-04 16:00 | PCM.IMDPSTOP ---
Problem List (1) Osteomyelitis Status: Acute Qualifiers: Osteomyelitis type: subacute Osteomyelitis location: foot Laterality: right Qualified Code(s): M86.271 - Subacute osteomyelitis, right ankle and foot (2) Chronic ulcer of right foot with necrosis of bone Status: Chronic (3) Delayed wound healing Status: Chronic (4) PVD (peripheral vascular disease) Status: Chronic (5) Type 2 diabetes mellitus with diabetic polyneuropathy Status: Chronic Immediate Post-Op Note Date of Procedure: 07/04/18 - Synthetic Chemist: Franko Montez, PGY2. Surgeon: Parris Abarca DPM Primary Surgeon/Physician: Parris Abarca DPM folded cloth taper: none Pre-Operative Diagnosis: chronic ulcer with osteomyelitis fifth metatarsal, right foot Post-Operative Diagnosis: chronic ulcer with osteomyelitis fifth metatarsal, right foot Surgery/Procedure Performed:: debridement of non viable soft tissue and bone including fifth metatarsal, right foot Description of Surgical Findings:: Hemostasis: Well-padded pneumatic right ankle tourniquet, 250 mmHg, 16 minutes Materials: 2-0 Prolene Complications: None See detailed operative The patient tolerated the procedure and anesthesia well. He was transported to the PACU with vital signs stable and vascular status intact to right lower extremity including Refill time brisk to all margins of the amputation site as well as the remaining digits on the right foot. Postoperative x-rays confirmed resection of the nonviable bone including part of the fifth metatarsal of the right foot. No acute injuries, soft tissue emphysema, or foreign body were identified. Postoperative orders were entered electronically. He will be transferred back to the medical surgical floor upon continued stability. Infectious disease and medical management are appreciated. Estimated Blood Loss: <200 mL Specimen's removed: 1. Pathology: Fifth metatarsal right foot. 2. Pathology: Fifth metatarsal clearance fragment right foot. 3. Microbiology: Fifth metatarsal clearance right foot for aerobic, anaerobic, acid-fast, fungal, MRSA PCR Type of Anesthesia:: General - LMA, Local - Preoperative: 1: 1 mixture of 1% lidocaine plain and 0.5% Marcaine plain administered in right foot fifth ray block fashion in typical manner - Admit VTE Documentation VTE Present on Admission: No VTE Mechan Device Prophylaxis: SCD's VTE Pharm Prophylaxis ordered?: Yes
--- NOTE | 2018-07-04 16:04 | OP.PN_ITS ---
Problem List (1) Osteomyelitis Status: Acute Qualifiers: Osteomyelitis type: subacute Osteomyelitis location: foot Laterality: right Qualified Code(s): M86.271 - Subacute osteomyelitis, right ankle and foot (2) Chronic ulcer of right foot with necrosis of bone Status: Chronic (3) Delayed wound healing Status: Chronic (4) PVD (peripheral vascular disease) Status: Chronic (5) Type 2 diabetes mellitus with diabetic polyneuropathy Status: Chronic Immediate Post-Op Note Date of Procedure: 07/04/18 - Supervisor Telephone Clerks: Franko Montez, PGY2. Surgeon: Parris Abarca DPM Primary Surgeon/Physician: Parris Abarca DPM customer success specialist: none Pre-Operative Diagnosis: chronic ulcer with osteomyelitis fifth metatarsal, right foot Post-Operative Diagnosis: chronic ulcer with osteomyelitis fifth metatarsal, right foot Surgery/Procedure Performed:: debridement of non viable soft tissue and bone inc luding fifth metatarsal, right foot Description of Surgical Findings:: Hemostasis: Well-padded pneumatic right ankle tourniquet, 250 mmHg, 16 minutes Materials: 2-0 Prolene Complications: None See detailed operative The patient tolerated the procedure and anesthesia well. He was transported to the PACU with vital signs stable and vascular status intact to right lower extremity including Refill time brisk to all margins of the amputation site as well as the remaining digits on the right foot. Postoperative x-rays confirmed resection of the nonviable bone including part of the fifth metatarsal of the right foot. No acute injuries, soft tissue emphysema, or foreign body were identified. Postoperative orders were entered electronically. He will be transferred back to the medical surgical floor upon continued stability. Infectious disease and medical management are appreciated. Estimated Blood Loss: <200 mL Specimen's removed: 1. Pathology: Fifth metatarsal right foot. 2. Pathology: Fifth metatarsal clearance fragment right foot. 3. Microbiology: Fifth metatarsal clearance right foot for aerobic, anaerobic, acid-fast, fungal, MRSA PCR Type of Anesthesia:: General - LMA, Local - Preoperative: 1: 1 mixture of 1% lidocaine plain and 0.5% Marcaine plain administered in right foot fifth ray block fashion in typical manner - Admit VTE Documentation VTE Present on Admission: No VTE Mechan Device Prophylaxis: SCD's VTE Pharm Prophylaxis ordered?: Yes
--- NOTE | 2018-07-04 16:07 | PCM.OPRPT ---
Problem List (1) Osteomyelitis Status: Acute Qualifiers: Osteomyelitis type: subacute Osteomyelitis location: foot Laterality: right Qualified Code(s): M86.271 - Subacute osteomyelitis, right ankle and foot (2) Chronic ulcer of right foot with necrosis of bone Status: Chronic (3) Delayed wound healing Status: Chronic (4) PVD (peripheral vascular disease) Status: Chronic (5) Type 2 diabetes mellitus with diabetic polyneuropathy Status: Chronic Report of Operation Date of Procedure: 07/04/18 - Advertising Coordinator: Franko Montez PGY2. Surgeon: Parris Abarca DPM Pre-Operative Diagnosis: chronic ulcer with osteomyelitis fifth metatarsal, right foot Post-Operative Diagnosis: chronic ulcer with osteomyelitis fifth metatarsal, right foot Surgery/Procedure Performed:: debridement of non viable soft tissue and bone including fifth metatarsal, right foot Description of Surgical Findings:: Hemostasis: Well-padded pneumatic right ankle tourniquet, 250 mmHg, 16 minutes Materials: 2-0 Prolene Complications: None admissions consultant: none Type of Anesthesia:: General - LMA, Local - Preoperative: 1: 1 mixture of 1% lidocaine plain and 0.5% Marcaine plain administered in right foot fifth ray block fashion in typical manner Specimen's removed: 1. Pathology: Fifth metatarsal right foot. 2. Pathology: Fifth metatarsal clearance fragment right foot. 3. Microbiology: Fifth metatarsal clearance right foot for aerobic, anaerobic, acid-fast, fungal, MRSA PCR Estimated Blood Loss (mL): <200 mL Description of Procedure: Indications: This is a 57 year old man with medical history of diabetes with neuropathy who is well-known to me at the wound healing center for chronic delayed healing right foot wound now has a necrotic fifth metatarsal bone exposed. His status has changed and progressively worsened over the past 3 days and he was admitted for IV antibiotics yesterday evening. There is purulence nonviable fibrous tissue with soft fifth metatarsal head. His labs are stable and his vitals are stable. His most recent right foot x-rays do demonstrate ostial lysis of the fifth metatarsal head consistent with osteomyelitis. There is no soft tissue emphysema or other acute injuries. Attempts were made for salvage of the previous open fifth toe amputation site including local wound care, offloading, nutritional supplementation, however the foot status worsened. The indications, planned procedure, possible benefits and risks and anticipated management were discussed in detail. Patient was advised the risks include but are not limited to pain, worsening, recurrence, need for further surgery, complex regional pain syndrome, numbness, swelling, weakness, transfer lesions, deformity, loss of limb, loss of life. He agreed and was able to repeat back. The consent form was reviewed with patient and he freely signed it. No guarantees were given nor implied. I answered all his questions. He was preoperatively optimized by the admitting hospitalist and infectious disease did also provide antibiotic recommendations. He is already receiving IV antibiotics on the medical floor. Procedure in detail: The patient was transported to the operating room via cart and was placed on the operating room in the supine position. He was already on IV antibiotics on the medical floor. A well padded pneumatic tourniquet was applied around the right ankle. Local anesthetic was administered preoperatively by the podiatry team. A timeout was performed and the patient was proper identified and surgical plan and surgical limb were confirmed. The patient received LMA anesthesia per the anesthesia team. The right foot was prepped and draped in the usual aseptic manner. The Esmarch bandage was used to exsanguinate the right lower extremity the tourniquet was inflated. Surgery proceeded as a following: Attention was first directed to the open fifth toe amputation site in which a full-thickness fishmouth incision was made to ellipse out the chronic devitalized and purulent ulcer site (predebridement 3.4 x 1.7 x 1.7 cm, post debridement 4.0 x 7.0 x 2.2 cm) and a linear incision was extended proximally along the anatomic structure of the fifth metatarsal directly down to bone. Care was taken to identify, protect, and retract all salvageable neurovascular structures at this point and throughout the remainder of surgery. A velzi elevator was used to reflect the soft tissue off the fifth metatarsal bone and a sagittal saw was promptly utilized to resect the fifth metatarsal at a level to allow skin closure and had a healthy level in appearance. This is resected at the bone that appeared healthy including white color and no softening. The wound was copiously irrigated with normal saline. This was sent to pathology. Next a cleaned sagittal saw was used to obtain a clearance fragment and this was sent to both pathology microbiology. Saline irrigation was again performed. The distal wound bed was debulked in preparation for closure. It is noted no necrosis, odor, purulence on expression, or remaining fibrous tissue was noted at this time. The tourniquet was deflated and pressure and mild electrocauterization was utilized to control hemostasis. The skin edges were reapproximated in a retention manner utilizing vertical mattress and simple suture technique with 2-0 Prolene. Capillary refill time was brisk to digits 1, 2, 3, 4 and also to the dorsal and plantar surgical site of the right foot. This closure was performed in a no touch technique without tension applied. A postoperative dressing consisting of Betadine soaked Adaptic, 4 x 4 gauze, Kerlix, web roll, and Augustus wrap was applied. After procedure: The patient tolerated the above procedure well and anesthesia well with no complications. He was transported from the operating room to the recovery room with vital signs stable, in good condition, and with the right foot vascular status intact. Post operative orders were placed electronically. Post operating instructions were reviewed - no weightbearing right foot, and keep right foot elevated. He will be transferred back to the regular medicine floor upon continued stability in which she will be medically managed by the hospitalist team. Infectious disease consultation and recommendations are also appreciated; there will likely be a longer IV antibiotic plan. His postoperative x-rays were reviewed as noted. I will continue to follow him close while in house. Parris Abarca DPM, [facility]
[2018-07-04] MEDS: Acetaminophen 325 MG Tablet 650 MG PO (16:53)
[2018-07-04 17:50] LABS: Bedside Glucose 177 mg/dL (70-110)
[2018-07-04] MEDS: Insulin Lispro 100 UNIT/ML INSULN.PEN SC (21:50)
[2018-07-04 22:10] LABS: Bedside Glucose 287 mg/dL (70-110)
[2018-07-05] VITALS (8 sets, daily range): BP systolic 127–152; BP diastolic 63–76; PULSE 74–96; RESP 16–18; TEMP 36.7–37.1; O2SAT 97–100
[2018-07-05] MEDS: oxyCODONE 5 MG Tablet PO ×2 (00:07→10:45)
[2018-07-05] MEDS: Piperacil/Tazobactam 3.375 GM/50 ML ML IV ×3 (06:44→21:21)
[2018-07-05] MEDS: Insulin Lispro 100 UNIT/ML INSULN.PEN SC ×5 (06:44→21:16)
[2018-07-05 06:47] LABS: Absolute Lymphocyte Count 1.51 X10^3/ul (0.83-4.51); Absolute Neutrophil Count 3.7 X10^3/uL (2.0-7.7); Basophil# 0.02 X10^3/uL; Basophil% 0.3 % (0-1); Eosinophil# 0.24 X10^3/uL; Hematocrit 40.3 % (40-54); Lymphocyte # 1.51 X10^3/ul (4.0); Mean Corp Hgb Conc 32.3 g/gl (32-36); Mean Corpuscular Hgb 29.1 pg (27.0-32.0); Mean Corpuscular Volume 90.4 fL (80-94); Mean Platelet Vol. 9.6 fl (6.2-12.0); Monocyte# 0.58 X10^3/uL; Monocyte% 9.6 % (0-10); Neutrophil # 3.67 X10^3/uL (2.7-7.7); Neutrophil % 60.8 % (47-70); Platelet Count 163 K/mm3 (150-450); RBC Distribution Width CV 13.3 % (11.6-14.6); RBC Distribution Width SD 43.8 fl (35.1-43.9); Red Blood Count 4.46 M/mm3 (4.6-6.2)
[2018-07-05 06:51] LABS: POSITIVE COUNT NO; POSITIVE DIFFERENTIAL NO; POSITIVE MORPHOLOGY NO
[2018-07-05 06:55] LABS: Bedside Glucose 273 mg/dL (70-110)
[2018-07-05 07:11] LABS: Vancomycin, Trough Level 8.4 ug/mL (5.0-15.0)
[2018-07-05 07:13] LABS: Anion Gap 6 (5-15); BUN 14 mg/dL (7-18); BUN/Creat Ratio 15.1 RATIO (10-20); Calcium,Total 8.4 mg/dL (8.5-10.1); Chloride 104 mmol/L (98-107); Cholesterol 125 mg/dL (200); Creatinine, Serum 0.93 mg/dL (0.70-1.30); EST Glomerular Filtration Rate 90 mL/min (>60); Est Glom Filt Rate - Afr Amer 108 mL/min (>60); Estimated Creatinine Clearance 86.83 ml/min; Glucose 273 mg/dL (74-106); High Density Lipoprotein 23 mg/dL; Potassium 4.3 mmol/L (3.5-5.1); Sodium Level 136 mmol/L (136-145); Triglycerides 212 mg/dL; Very Low Density Lipoprotein 42 mg/dL (5-40)
--- NOTE | 2018-07-05 07:42 | PHA.PHARE_ITS ---
Addendum entered and electronically signed by Jabari Haile 07/05/18 07:42: Plan: Considering patient previously received wrong dose that is less than scheduled, large body BMI and likelihood to accumulate vanc, and increased SCr today, recommend to only increase slightly to 2000mg IV q12h, recheck trough prior to 4th dose. Patient will go home on IV antibiotics, recommend to hold at q12h for ease of dosing if possible and re-evaluate on the . Original Note: Consult Pharmacy has been consulted to manage selected antiobiotic: Vancomycin Type of Consult: Follow-up Suspected Infection: Osteomyelitis Labs: Sodium 136 mmol/L (136-145) 07/05/18 06:30 Potassium 4.3 mmol/L (3.5-5.1) 07/05/18 06:30 Chloride 104 mmol/L (98-107) 07/05/18 06:30 Carbon Dioxide 26.0 mmol/L (21.0-32.0) 07/05/18 06:30 Anion Gap 6 (5-15) 07/05/18 06:30 BUN 14 mg/dL (7-18) 07/05/18 06:30 Creatinine 0.93 mg/dL (0.70-1.30) 07/05/18 06:30 Est GFR (MDRD) Af Amer 108 mL/min (>60) 07/05/18 06:30 Est GFR (MDRD) Non-Af 90 mL/min (>60) 07/05/18 06:30 BUN/Creatinine Ratio 15.1 RATIO (10-20) 07/05/18 06:30 Glucose 273 mg/dL (74-106) H 07/05/18 06:30 Vancomycin Trough 8.4 ug/mL (5.0-15.0) 07/05/18 06:30 Microbiology: Microbiology 07/03/18 16:51 Wound - Right Foot Gram Stain - Final 07/03/18 16:51 Wound - Right Foot Wound Culture - Preliminary Gram negative gene Streptococcus group B Weight used for dosin kg Estimated Creatinine Clearance: 87 mL/min Goal Trough: 15-20 mcg/mL Pharmacy Plan for Drug Dosing: Pharmacy Service will continue to monitor and adjust dosing as required. Follow-Up Labs: Trough Vancomycin - 07/07 @ 0700
--- NOTE | 2018-07-05 10:49 | NURSING ---
LATE ENTRY - 0830 - PT ACCUCHECK PER HIS PERSONAL MACHINE = 202. GIVEN 20UNITS HUMALOG PER PT REQUEST.
[2018-07-05 10:50] LABS: Bedside Glucose 300 mg/dL (70-110)
--- NOTE | 2018-07-05 10:50 | NURSING ---
ACCUCHECK 300. PT GIVEN 20UNITS HUMALOG ALONG WITH SCHED 90 UNITS LANTUS PER PT REQUEST.
--- NOTE | 2018-07-05 11:23 | PN.ID_ITS ---
Patient Problems: Active and Suspected Problems Osteomyelitis (Acute) Subjective: Foot is sore s/p OR. No fever. Had 2 loose stool, no abd pain. - Physical Exam General: Alert, Cooperative, No apparent distress Lungs: Clear to auscultation, Normal air movement Cardiovascular: Regular rate, Regular Rhythm Abdomen: Soft, Non Tender, Non-Distended Skin: Ulcer/ Wound - foot wrapped Vital Signs Temp Pulse Resp BP Pulse Ox 98.3 F 80 18 127/63 H 98 07/05/18 08:24 07/05/18 08:24 07/05/18 08:24 07/05/18 08:24 07/05/18 08:24 Oxygen Delivery Method Room Air Weight: 122.6 kg Body Mass Index (BMI) 41.1 Finger Stick Blood Glucose 82 Intake and Output for Last 24 Hours 07/03/18 07/04/18 07/05/18 23:59 23:59 23:59 Intake Total 4692 / 4692 353 / 353 Output Total 3850 / 3850 550 / 550 Balance 842 / 842 -197 / -197 Microbiology Past 72 Hours 07/04/18 15:25 Gram Stain - Final Bone - Right Foot Wound Culture - Preliminary No growth-Final to follow 07/03/18 16:51 Gram Stain - Final Wound - Right Foot Wound Culture - Preliminary Providencia stuartii Streptococcus group B Staphylococcus species Laboratory Tests Past 24 Hrs 07/04/18 07/05/18 07/05/18 05:30 06:30 06:30 WBC 6.0 RBC 4.46 L Hgb 13.0 Hct 40.3 MCV 90.4 MCH 29.1 MCHC 32.3 RDW 13.3 RDW Differential 43.8 Plt Count 163 MPV 9.6 Immature Gran % (Auto) 0.300 Neut % (Auto) 60.8 Lymph % (Auto) 25.0 [place] % (Auto) 9.6 Eos % (Auto) 4.0 Baso % (Auto) 0.3 Absolute Neuts (auto) 3.7 Absolute Lymphs (auto) 1.51 Total Counted Not Reportable Sodium Potassium Chloride Carbon Dioxide Anion Gap BUN Creatinine Estim Creat Clear Calc Est GFR (MDRD) Af Amer Est GFR (MDRD) Non-Af BUN/Creatinine Ratio Glucose Hemoglobin A1c 8.0 H Calcium Triglycerides Cholesterol LDL Cholesterol VLDL Cholesterol HDL Cholesterol Vancomycin Trough 8.4 07/05/18 06:30 WBC RBC Hgb Hct MCV MCH MCHC RDW RDW Differential Plt Count MPV Immature Gran % (Auto) Neut % (Auto) Lymph % (Auto) [place] % (Auto) Eos % (Auto) Baso % (Auto) Absolute Neuts (auto) Absolute Lymphs (auto) Total Counted Sodium 136 Potassium 4.3 Chloride 104 Carbon Dioxide 26.0 Anion Gap 6 BUN 14 Creatinine 0.93 Estim Creat Clear Calc 86.83 Est GFR (MDRD) Af Amer 108 Est GFR (MDRD) Non-Af 90 BUN/Creatinine Ratio 15.1 Glucose 273 H Hemoglobin A1c Calcium 8.4 L Triglycerides 212 H Cholesterol 125 LDL Cholesterol 60 VLDL Cholesterol 42 H HDL Cholesterol 23 L Vancomycin Trough POC Glucose 07/05/18 07/05/18 07/04/18 10:36 06:41 21:44 POC Glucose 300 H 273 H 287 H 07/04/18 07/04/18 16:52 12:04 POC Glucose 177 H 117 H Medical Necessity - Tobacco Use Smoking Status: Former smoker Tobacco Use: Cigars Route of nutrition/ use of supplements: [] Nutritional Intake: [] IV Site: [] White Catheter: [] - Assessment/Plan Antibiotics: [] Assessment/Plan: [] R foot DM infection s/p 5th toe resection 06/05/18 for osteo. Surg cx had clear margins. He grew 06/05 morganella and GBS with anaerobes in other OR specimen. 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 Now with wound infection, cont with vanc/zosyn and surgical debridement done 07/[address] Abarca. Will order picc. He is not interested in ECF. Will follow, d/w Dr. Abarca
--- NOTE | 2018-07-05 11:32 | CASEMGMT ---
KIKA ROD NOTE: Call placed to Hawa @ [facility]. Given update on pt. Made aware plan is to be discharged on IV ATB's x 6 weeks w/anticipated discharge from [facility] in a couple days. Also made aware pt is not expected to need Wound Vac on d/c. Radha HAQUE RN CM
--- NOTE | 2018-07-05 13:27 | PN_ITS ---
Patient Problems: Active and Suspected Problems Osteomyelitis (Acute) Subjective: Patient was seen for follow up right foot, s/p debridement by Dr. Abarca yesterday. Patient relates no complaints of fever, chills, nausea or vomiting at this time. - Physical Exam General: Alert, Oriented x3, Cooperative, No apparent distress Extremities: Capillary Refill Less than 3 Seconds, No Calf Tenderness, - - Right foot: s/p partial 5th ray amputation w/ incision site w/ sutures intact, well coapted, no dehiscence, healing well at this time, there is some residual cellulitis to the site, but improved, no maloder, no fluctuance, no purulence, no streaking, no crepitus, no necrosis present to the foot or ankle, no new ulcerations or areas of break down, vascular flow intact to the foot w/ no evidence of acute ischemia. Musculoskeletal: No Tenderness to Palpation of Joints or Extremities - to the foot/ankle Psych/Mental Status: Alert and oriented to time, place, person, mood and affect Vital Signs Temp Pulse Resp BP Pulse Ox 98.3 F 78 18 127/63 H 98 07/05/18 08:24 07/05/18 10:00 07/05/18 08:24 07/05/18 08:24 07/05/18 08:24 Oxygen Delivery Method Room Air Weight: 122.6 kg Body Mass Index (BMI) 41.1 Finger Stick Blood Glucose 82 Intake and Output for Last 24 Hours 07/03/18 07/04/18 07/05/18 23:59 23:59 23:59 Intake Total 4692 / 4692 753 / 753 Output Total 3850 / 3850 850 / 850 Balance 842 / 842 -97 / -97 Microbiology Past 72 Hours 07/04/18 15:25 Gram Stain - Final Bone - Right Foot Wound Culture - Preliminary No growth-Final to follow 07/03/18 16:51 Gram Stain - Final Wound - Right Foot Wound Culture - Preliminary Providencia stuartii Streptococcus group B Staphylococcus species Laboratory Tests Past 24 Hrs 07/05/18 07/05/18 07/05/18 06:30 06:30 06:30 WBC 6.0 RBC 4.46 L Hgb 13.0 Hct 40.3 MCV 90.4 MCH 29.1 MCHC 32.3 RDW 13.3 RDW Differential 43.8 Plt Count 163 MPV 9.6 Immature Gran % (Auto) 0.300 Neut % (Auto) 60.8 Lymph % (Auto) 25.0 [place] % (Auto) 9.6 Eos % (Auto) 4.0 Baso % (Auto) 0.3 Absolute Neuts (auto) 3.7 Absolute Lymphs (auto) 1.51 Total Counted Not Reportable Sodium 136 Potassium 4.3 Chloride 104 Carbon Dioxide 26.0 Anion Gap 6 BUN 14 Creatinine 0.93 Estim Creat Clear Calc 86.83 Est GFR (MDRD) Af Amer 108 Est GFR (MDRD) Non-Af 90 BUN/Creatinine Ratio 15.1 Glucose 273 H Calcium 8.4 L Triglycerides 212 H Cholesterol 125 LDL Cholesterol 60 VLDL Cholesterol 42 H HDL Cholesterol 23 L Vancomycin Trough 8.4 POC Glucose 07/05/18 07/05/18 07/04/18 10:36 06:41 21:44 POC Glucose 300 H 273 H 287 H 07/04/18 16:52 POC Glucose 177 H Medical Necessity - Tobacco Use Smoking Status: Former smoker Tobacco Use: Cigars Assessment/Plan All Active Problems Osteomyelitis (Acute) Gangrene right 5th toe s/p amputation now with reinfection and osteomyelitis 5th metatarsal now s/p further debridement 5th ray resection Peripheral vascular disease - no evidence of acute ischemia Diabetes w/ peripheral neuropathy Re-evaluation performed. Foot improving. Cultures have been obtained and results pending, continue to follow cultures and continue with IV antibiotics per Infectious disease service. Continue with local care of the foot - betadine solution to incision site w/ overlying gauze, kerlix and alexandra dressing. No weightbearing right foot. Ok to discharge when ok from ID and medicine service. Patient to follow up [facility] 1-2 days after discharge, sooner if needed.
--- NOTE | 2018-07-05 13:40 | PN_ITS ---
Patient Problems: Active and Suspected Problems Osteomyelitis (Acute) Subjective: Patient was seen and examined. Had surgery done yesterday. Pain is controlled. Patient is insistent on using his own insulin sliding scale instead of the hospital sliding scales. Sugars have been erratic. Discussed with the patient, he is concerned that the ISS that we have in the hospital typically does not cover his sugars well. Agreed to customize the insulin sliding scale with what he is doing. Sugars at lunch with 110. Denies any fever or chills or shortness of breath. He expresses interest in being referred for weight loss management to help manage his diabetes Objective: Physical Exam General: Alert, Oriented x3, Cooperative, No apparent distress HEENT: Atraumatic, PERRLA, EOMI, Normocephalic Oral: Moist Mucosa, No Gingival or Mucosal Lesions/ Ulcerations Neck: Supple, No JVD, Negative Carotid Bruits, Trachea Midline, Thyroid Normal Size and Texture Lungs: Clear to auscultation, Normal air movement, No rhonchi, No wheeze, No rales Cardiovascular: Regular rate, Regular Rhythm, Normal S1, Normal S2, PMI Normal Abdomen: Bowel Sounds Present, Soft, Non Tender, Non-Distended, No Hepato- splenomegaly, Obese, - - Small umbilical hernia. Extremities: Trace amount of the right lower extremity, foot dressed, is dropped Skin: No rashes, Ulcer/ Wound Lymphatic: No Cervical, Supraclavicular, or Inguinal Adenopathy Neurological: Cranial nerves II-XII grossly intact, Motor Exam 5/5 strength throughout Psych/Mental Status: Normal Affect, Appropriate, Alert and oriented to time, place, person, mood and affect Vitals/I&O's: Vital Signs Temp Pulse Resp BP Pulse Ox 98.3 F 78 18 127/63 H 98 07/05/18 08:24 07/05/18 10:00 07/05/18 08:24 07/05/18 08:24 07/05/18 08:24 Oxygen Delivery Method Room Air Weight: 122.6 kg Body Mass Index (BMI) 41.1 Finger Stick Blood Glucose 82 Intake and Output for Last 24 Hours 07/03/18 07/04/18 07/05/18 23:59 23:59 23:59 Intake Total 4692 / 4692 753 / 753 Output Total 3850 / 3850 850 / 850 Balance 842 / 842 -97 / -97 Microbiology Past 72 Hours 07/04/18 15:25 Bone - Right Foot Gram Stain - Final 07/04/18 15:25 Bone - Right Foot Wound Culture - Preliminary No growth-Final to follow 07/03/18 16:51 Wound - Right Foot Gram Stain - Final 07/03/18 16:51 Wound - Right Foot Wound Culture - Preliminary Providencia stuartii Streptococcus group B Staphylococcus species Laboratory Results 07/04/18 16:52: POC Glucose 177 H 07/04/18 21:44: POC Glucose 287 H 07/05/18 06:30: Vancomycin Trough 8.4 07/05/18 06:30: WBC 6.0, RBC 4.46 L, Hgb 13.0, Hct 40.3, MCV 90.4, MCH 29.1, MCHC 32.3, RDW 13.3, RDW Differential 43.8, Plt Count 163, MPV 9.6, Immature Gran % (Auto) 0.300, Neut % (Auto) 60.8, Lymph % (Auto) 25.0, [place] % (Auto) 9.6, Eos % (Auto) 4.0, Baso % (Auto) 0.3, Absolute Neuts (auto) 3.7, Absolute Lymphs (auto) 1.51, Total Counted Not Reportable 07/05/18 06:30: Sodium 136, Potassium 4.3, Chloride 104, Carbon Dioxide 26.0, Anion Gap 6, BUN 14, Creatinine 0.93, Estim Creat Clear Calc 86.83, Est GFR (MDRD) Af Amer 108, Est GFR (MDRD) Non-Af 90, BUN/Creatinine Ratio 15.1, Glucose 273 H, Calcium 8.4 L, Triglycerides 212 H, Cholesterol 125, LDL Cholesterol 60, VLDL Cholesterol 42 H, HDL Cholesterol 23 L 07/05/18 06:41: POC Glucose 273 H 07/05/18 10:36: POC Glucose 300 H Current Medications Acetaminophen (Tylenol) 650 mg PO Q6H PRN PRN PRN Reason: Fever, headache, pain Last Admin: 07/04/18 16:53 Dose: 650 mg Aspirin (Aspirin, Baby) 81 mg PO DAILY@0800 [facility] Last Admin: 07/05/18 08:50 Dose: Not Given Enoxaparin Sodium (Lovenox) 40 mg SC DAILY [facility] Last Admin: 07/05/18 08:50 Dose: Not Given Sodium Chloride () 250 mls @ 15 mls/hr IV .[id number] PRN PRN Reason: SALINE FLUSH Piperacillin Sod/Tazobactam Sod (Zosyn) 3.375 gm in 50 mls @ 12.5 mls/hr IV Q8 [facility] Last Admin: 07/05/18 06:44 Dose: 12.5 mls/hr Vancomycin IV Pharmacy to Dose (1 ea/ Sodium Chloride) 500 mls @ 250 mls/hr IV X1 PRN; Protocol PRN Reason: Rx to Dose Vancomycin HCl 2,000 mg/ (Sodium Chloride) 540 mls @ 250 mls/hr IV Q12H [facility] Insulin Glargine (Lantus (Bkc)) 90 units SC BID [facility] Last Admin: 07/05/18 10:40 Dose: 90 u Insulin Human Lispro (Humalog Kwikpen (Bkc)) 0 unit SC ACHS [facility]; Protocol Last Admin: 07/05/18 10:39 Dose: 20 u Magnesium Hydroxide (Milk Of Magnesia) 30 ml PO DAILY PRN PRN PRN Reason: Constipation Ondansetron HCl (Zofran) 4 mg IV Q8H PRN PRN PRN Reason: NAUSEA/VOMITING Oxycodone HCl (Oxyir) 5 mg PO Q6H PRN PRN PRN Reason: SEVERE PAIN (6-10/10) Last Admin: 07/05/18 10:45 Dose: 5 mg Sodium Chloride () 5 - 30 ml IV UD PRN PRN Reason: SALINE FLUSH Medical Necessity - Tobacco Use Smoking Status: Former smoker Tobacco Use: Cigars Assessment/Plan All Active Problems Osteomyelitis (Acute) 57-year-old with past medical history of type II DM, complicated by peripheral neuropathy, PAD, recently underwent right fifth toe excision for osteomyelitis and gangrene comes in with right foot redness, drainage concerning for right fifth distal metatarsal osteomyelitis 1. Right fifth distal metatarsal osteomyelitis/cellulitis/wound infection, blood cultures are pending, wound cultures before surgery grew procidentia, Streptococcus, Staphylococcus, intraoperatively or postoperatively wound cultures are pending. Previous wound cultures grew Morganella morganii and strep agalactiae, no fevers seen, stable vitals On IV Vancomycin and Zosyn, ID plans on a PICC line and discharged home for 6 weeks antibiotics, will follow 2. Type II DM,complicated by peripheral neuropathy uncontrolled, HbA1c is 8.0, blood sugars are fairly controlled, on Lantus 90 units twice daily as well as insulin sliding scale with Accu-Cheks. Will use patient's own customized based insulin sliding scale 3. PAD, noted on ABIs done in April 2018, aspirin, lipid profile shows elevated triglyceride but controlled total cholesterol and LDL 4. DVT prophylaxis with Lovenox SC 5. Disposition: Possible discharge tomorrow with PICC line Code Visit Inpatient E&M: 64208 Subs Hosp L2
--- NOTE | 2018-07-05 14:41 | CASEMGMT ---
KIKA ROD NOTE: Call received from [facility]. Cost for IV ATB's will be covered @ 100 %, so pt will not need to pay anything for them. Pt made aware. Radha LARSONN KIKA CM
[2018-07-05 14:51] LABS: Bedside Glucose 110 mg/dL (70-110)
--- NOTE | 2018-07-05 16:09 | NURSING ---
LATE ENTRY - ACCUCHCECK = 110. PT GIVEN 14UNITS HUMALOG INSULIN PER PT REQUEST.
[2018-07-05 17:00] LABS: Bedside Glucose 104 mg/dL (70-110)
[2018-07-05] MEDS: 0.9% NaCl Peripheral Flush Adult/Peds IV (18:21)
[2018-07-05 22:40] LABS: Bedside Glucose 184 mg/dL (70-110)
[2018-07-06 01:03] VITALS: BP 132/83; PULSE 92; RESP 18; TEMP 37.2; O2SAT 97
[2018-07-06] MEDS: Piperacil/Tazobactam 3.375 GM/50 ML ML IV (05:05)
[2018-07-06 05:06] VITALS: BP 142/80; PULSE 83; RESP 18; TEMP 36.5; O2SAT 97
[2018-07-06 08:21] VITALS: BP 136/84; PULSE 87; RESP 18; TEMP 36.4; O2SAT 99
[2018-07-06 08:55] LABS: Bedside Glucose 76 mg/dL (70-110)
[2018-07-06] MEDS: Insulin Lispro 100 UNIT/ML INSULN.PEN SC ×3 (09:16→14:34)
--- NOTE | 2018-07-06 10:39 | PCM.DC ---
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) Type 2 diabetes mellitus with diabetic polyneuropathy (Chronic) Reason(s) for Visit for Discharge Instructions: Right foot osteomyelitis You will use the following diet at home:: Calorie/Carbohydrate Controlled (specify 1200, 1400, etc), Cardiac Your food should be the consistency of: Regular Your liquids should be the consistency of: Regular/Thin Discharge Activity: Return to Normal Activity Call your doctor if your incision/area has: Continuous Slow Oozing, Sudden Increased Bleeding, Increased Pain/ Swelling, Increased Redness Call your doctor if you observe: Fever of 101 or Higher, Coldness, Increased Pain, Numbness or Tingling, Change in Color, Swelling in the ankles Additional Instructions: Follow on wound care by surgical physician assistant. Follow up with ID in the wound center in 2-3 weeks. You will be getting antibiotics and labs at home per ID. Continue to keep a close eye on your blood sugars. Follow a strict diabetic diet. Allergies/Adverse Reactions: Allergies No Known Allergies Allergy (Verified 06/05/18 10:02) Medications to take at Discharge Insulin Aspart [Novolog Flexpen] See Protocol SC TIDCM 06/05/18 Insulin Glargine [Lantus SoloStar Pen] 90 units SC BID pen 06/08/18 Argin/Glut/Cahmb/Collag/Mv-Min [Tripp Packet] 1 each PO BID 07/03/18 Aspirin [Aspirin, Baby] 81 mg PO DAILY@0800 #30 tab.chew 07/06/18 Ceftriaxone 2 gm IV Q24 #40 vial 07/06/18 The following prescriptions were given: Aspirin [Aspirin, Baby] 81 mg PO DAILY@0800 #30 tab.chew Ceftriaxone 2 gm IV Q24 #40 vial Primary Care Physician: Matias Graves MD [Primary Care Provider] - Please follow up with your Primary Care Physician in: within 2 weeks Test Results: Test results from this visit will be discussed in further detail at your follow-up appointment, if applicable. Please Follow Up With: Parris Abarca DPM When: as scheduled Proposed Discharge Date: 07/06/18
--- NOTE | 2018-07-06 10:41 | DS.PCM_ITS ---
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) Type 2 diabetes mellitus with diabetic polyneuropathy (Chronic) Delayed wound healing (Chronic) PVD (peripheral vascular disease) (Chronic) Ulcer of right foot with necrosis of muscle (Chronic) Chronic ulcer of left foot with fat layer exposed (Chronic) Hammer toe of right foot (Chronic) Ulcer of right foot with fat layer exposed (Chronic) Non-pressure chronic ulcer of right heel and midfoot with bone involvement without evidence of necrosis (Chronic) Diabetic ulcer of right foot (Chronic) Type 2 diabetes mellitus with diabetic polyneuropathy (Chronic) Diabetes mellitus type II, uncontrolled (Chronic) Obesity (BMI 30-39.9) (Chronic) Tobacco use (Chronic) Hospital Course and Treatment Imaging Results: Clinical Impression(s) from Imaging Studies Foot X-Ray 07/03/18 17:00 IMPRESSION: Worsening erosion of the distal fifth metatarsal suspicious for advancing osteomyelitis. Status post amputation of the fifth digit at the metatarsophalangeal joint. Electronically Signed: Sharmila Foreman MD at 17:20 EDT Tel , Service support , Foot X-Ray 07/04/18 15:11 IMPRESSION: Intraoperative fluoroscopy during left foot procedure using 0.9 seconds of fluoroscopy time. Electronically Signed: Sharmila Foreman MD at 16:50 EDT Tel , Service support , Podiatry ID Operations: None Procedures: - - debridement of non viable soft tissue and bone including fifth metatarsal, right foot Summary of Care Provided: 57-year-old with past medical history of type II DM, complicated by peripheral neuropathy, PAD, recently underwent right fifth toe excision for osteomyelitis and gangrene comes in with right foot redness, drainage concerning for right fifth distal metatarsal osteomyelitis 1. Right fifth distal metatarsal osteomyelitis/cellulitis/wound infection, blood cultures were negative, wound cultures before surgery grew procidentia, Streptococcus, Staphylococcus, intraoperatively. Postoperatively wound cultures showed no growth. previous wound cultures grew Morganella morganii and strep agalactiae, Status post fifth metatarsal excision and debridement of nonviable tissues, managed initially on IV Vancomycin and Zosyn, ID consulted, PICC line in place, discharged on IV ceftriaxone via PICC line as well as p.o. Flagyl for 6 weeks. 2. Type II DM,complicated by peripheral neuropathy uncontrolled, HbA1c is 8.0, blood sugars are controlled, patient on Lantus 90 units twice daily as well as his own custom basal insulin sliding scale 3. PAD, noted on ABIs done in April 2018, started on aspirin, lipid profile shows elevated triglyceride but controlled total cholesterol and LDL Subjective: On the day of discharge, patient was seen and examined. Feels well. Denies any fever or chills Objective: Physical Exam General: Alert, Oriented x3, Cooperative, No apparent distress HEENT: Atraumatic, PERRLA, EOMI, Normocephalic Oral: Moist Mucosa, No Gingival or Mucosal Lesions/ Ulcerations Neck: Supple, No JVD, Negative Carotid Bruits, Trachea Midline, Thyroid Normal Size and Texture Lungs: Clear to auscultation, Normal air movement, No rhonchi, No wheeze, No rales Cardiovascular: Regular rate, Regular Rhythm, Normal S1, Normal S2, PMI Normal Abdomen: Bowel Sounds Present, Soft, Non Tender, Non-Distended, No Hepato- splenomegaly, Obese, - - Small umbilical hernia. Extremities: Trace amount of the right lower extremity, right foot is dressed, propped up Skin: No rashes, Ulcer/ Wound Lymphatic: No Cervical, Supraclavicular, or Inguinal Adenopathy Neurological: Cranial nerves II-XII grossly intact, Motor Exam 5/5 strength throughout Psych/Mental Status: Normal Affect, Appropriate, Alert and oriented to time, place, person, mood and affect - Physical Exam Vital Signs Temp Pulse Resp BP Pulse Ox 97.6 F L 87 18 136/84 H 99 07/06/18 08:21 07/06/18 08:21 07/06/18 08:21 07/06/18 08:21 07/06/18 08:21 Oxygen Delivery Method Room Air Weight: 122.6 kg Body Mass Index (BMI) 41.1 Finger Stick Blood Glucose 82 Intake and Output for Last 24 Hours 07/04/18 07/05/18 07/06/18 23:59 23:59 23:59 Intake Total 4692 / 4692 2285 / 2285 360 / 360 Output Total 3850 / 3850 2500 / 2500 1350 / 1350 Balance 842 / 842 -215 / -215 -990 / -990 Microbiology Past 72 Hours 07/03/18 16:51 Gram Stain - Final Wound - Right Foot Wound Culture - Preliminary Providencia stuartii Streptococcus group B Gram positive gene Anaerobic Culture - Preliminary Checking for anaerobes, further studies to follow. 07/04/18 15:25 Gram Stain - Final Bone - Right Foot Wound Culture - Preliminary No growth-Final to follow Anaerobic Culture - Preliminary No growth in 48 hours. POC Glucose 07/06/18 07/05/18 07/05/18 08:18 21:15 16:24 POC Glucose 76 184 H 104 07/05/18 07/05/18 14:00 10:36 POC Glucose 110 300 H Discharge Diet: Low fat/ Low Cholesterol, 2000 mg Sodium Diet, Carb Control Diet Discharge Activity: Return to Normal Activity Call your doctor if your incision/area has: Continuous Slow Oozing, Sudden Increased Bleeding, Increased Pain/ Swelling, Increased Redness Call your doctor if you observe: Fever of 101 or Higher, Coldness, Increased Pain, Numbness or Tingling, Change in Color, Swelling in the ankles Home Medications: Medications to take at Discharge Insulin Aspart [Novolog Flexpen] See Protocol SC TIDCM 06/05/18 Insulin Glargine [Lantus SoloStar Pen] 90 units SC BID pen 06/08/18 Argin/Glut/Cahmb/Collag/Mv-Min [Tripp Packet] 1 each PO BID 07/03/18 Aspirin [Aspirin, Baby] 81 mg PO DAILY@0800 #30 tab.chew 07/06/18 Ceftriaxone 2 gm IV Q24 #40 vial 07/06/18 Metronidazole [Flagyl] 500 mg PO TID #126 tablet 07/06/18 Following Prescrptions Were Given to Patient: Aspirin [Aspirin, Baby] 81 mg PO DAILY@0800 #30 tab.chew Ceftriaxone 2 gm IV Q24 #40 vial Metronidazole [Flagyl] 500 mg PO TID #126 tablet Primary Care Physician: Matias Graves MD [Primary Care Provider] - Please follow up with your Primary Care Physician in: within 2 weeks Please Follow Up With: Parris Abarca DPM When: as scheduled Medical Necessity - Tobacco Use Smoking Status: Former smoker Tobacco Use: Cigars Meaningful Use Info Meaningful Use Diagnoses (Choose all that apply): None applicable Code Visit Inpatient E&M: 97381 Disch Hosp
--- NOTE | 2018-07-06 11:14 | PCM.PN.ID ---
Patient Problems: Active and Suspected Problems Osteomyelitis (Acute) Subjective: Pain better, no fever, no n/v/d. - Physical Exam General: Alert, Cooperative, No apparent distress Lungs: Clear to auscultation, Normal air movement Cardiovascular: Regular rate, Regular Rhythm Abdomen: Soft, Non Tender, Non-Distended Skin: Incision - foot wrapped Vital Signs Temp Pulse Resp BP Pulse Ox 97.6 F L 87 18 136/84 H 99 07/06/18 08:21 07/06/18 08:21 07/06/18 08:21 07/06/18 08:21 07/06/18 08:21 Oxygen Delivery Method Room Air Weight: 122.6 kg Body Mass Index (BMI) 41.1 Finger Stick Blood Glucose 82 Intake and Output for Last 24 Hours 07/04/18 07/05/18 07/06/18 23:59 23:59 23:59 Intake Total 4692 / 4692 2285 / 2285 360 / 360 Output Total 3850 / 3850 2500 / 2500 1350 / 1350 Balance 842 / 842 -215 / -215 -990 / -990 Microbiology Past 72 Hours 07/03/18 16:51 Gram Stain - Final Wound - Right Foot Wound Culture - Preliminary Providencia stuartii Streptococcus group B Gram positive gene Anaerobic Culture - Preliminary Checking for anaerobes, further studies to follow. 07/04/18 15:25 Gram Stain - Final Bone - Right Foot Wound Culture - Preliminary No growth-Final to follow Anaerobic Culture - Preliminary No growth in 48 hours. POC Glucose 07/06/18 07/05/18 07/05/18 08:18 21:15 16:24 POC Glucose 76 184 H 104 07/05/18 14:00 POC Glucose 110 Medical Necessity - Tobacco Use Smoking Status: Former smoker Tobacco Use: Cigars Route of nutrition/ use of supplements: [] Nutritional Intake: [] IV Site: [] White Catheter: [] - Assessment/Plan Antibiotics: [] Assessment/Plan: [] R foot DM infection s/p 5th toe resection 06/05/18 for osteo. Surg cx at that time had clear margins. He grew 06/05 morganella and GBS with anaerobes in other OR specimen. 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 Now with wound infection, on vanc/zosyn and surgical debridement done 07/[address] Abarca. Picc placed. Wound cx now with providencia, GBS, and GPR. Ok for d/c home on iv ceftriaxone 2gm qday and po flagyl 500mg tid for 6 weeks, stop date 08/15/18, weekly bmp, cbc, and esr while on iv abx. ID follow-up at wound care center with me in 2-3 weeks. Rx written. Will follow, d/w primary team
[2018-07-06 11:30] VITALS: O2SAT 97
[2018-07-06 11:31] LABS: Bedside Glucose 184 mg/dL (70-110)
--- NOTE | 2018-07-06 12:03 | CASEMGMT ---
Addendum entered by Leonard Eason 07/06/18 12:16: Discharge instructions, summary, and PICC information faxed to [facility] as well and Lauren confirmed they were all received. Original Note: KIKA ROD NOTE: *Script for IV Ceftriaxone received from Dr Pike and faxed to [facility] and they were made aware plans for discharge today with next dose of IV ATB's being due tomorrow 07/07/18 @ 1000. *Lauren @ [facility] states they are able to deliver the ATB today and that she will contact pt to make arrangements for delivery. *Script for IV Ceftriaxone also faxed to [facility] and ELE Shaikh made aware plans for discharge today with next dose of IV ATB's being due tomorrow 07/07/18 @ 1000 and she stated they are able to begin start of care tomorrow and give the infusion as scheduled. *Dr Griffith made aware IV ATB's have been arranged for pt at home to begin tomorrow 07-06-19. *Pt made aware of plans and that [facility] will be contacting him. Questions answered. Pt denies having any further questions or concerns. *CM to follow for any further discharge plans that may arise. Radha HAQUE RN, CM
--- NOTE | 2018-07-06 12:32 | PCM.PROGNOTE ---
Subjective: Patient seen today for follow up on right foot. He has no new complaints. He is resting comfortably in bed. No complaints of fever, chills, nausea or vomiting. - Physical Exam General: Alert, Oriented x3, Cooperative, No apparent distress Extremities: No cyanosis, Capillary Refill Less than 3 Seconds, No Calf Tenderness, - - s/p debridement 5th ray right foot - site healing well, infection resolving, no complaints noted. No acute problems to the right foot, no evidence of acute ischemia. Vital Signs Temp Pulse Resp BP Pulse Ox 97.6 F L 87 18 136/84 H 97 07/06/18 08:21 07/06/18 08:21 07/06/18 08:21 07/06/18 08:21 07/06/18 11:30 Oxygen Delivery Method Room Air Weight: 122.6 kg Body Mass Index (BMI) 41.1 Finger Stick Blood Glucose 82 Intake and Output for Last 24 Hours 07/04/18 07/05/18 07/06/18 23:59 23:59 23:59 Intake Total 4692 / 4692 2285 / 2285 360 / 360 Output Total 3850 / 3850 2500 / 2500 1350 / 1350 Balance 842 / 842 -215 / -215 -990 / -990 Microbiology Past 72 Hours 07/03/18 16:51 Gram Stain - Final Wound - Right Foot Wound Culture - Preliminary Providencia stuartii Streptococcus group B Gram positive gene Anaerobic Culture - Preliminary Checking for anaerobes, further studies to follow. 07/04/18 15:25 Gram Stain - Final Bone - Right Foot Wound Culture - Preliminary No growth-Final to follow Anaerobic Culture - Preliminary No growth in 48 hours. POC Glucose 07/06/18 07/06/18 07/05/18 10:59 08:18 21:15 POC Glucose 184 H 76 184 H 07/05/18 07/05/18 16:24 14:00 POC Glucose 104 110 Medical Necessity - Tobacco Use Smoking Status: Former smoker Tobacco Use: Cigars Assessment/Plan All Active Problems Osteomyelitis (Acute) Gangrene right 5th toe s/p amputation now with reinfection and osteomyelitis 5th metatarsal now s/p further debridement 5th ray resection Peripheral vascular disease - no evidence of acute ischemia Diabetes w/ peripheral neuropathy Re-evaluation performed. Foot improving. Continue with IV antibiotics per Infectious disease service. Continue with local care of the foot - betadine solution to incision site w/ overlying gauze, kerlix and alexandra dressing. No weightbearing right foot. Ok to discharge when ok from ID and medicine service. [facility] 07/07/18 at 11:15am w/ Dr. Abarca.
--- NOTE | 2018-07-06 13:12 | NURSING ---
LATE ENTRY - 0815 - PT ACCUCHECK 76. PT BREAKFAST HERE. MEDICATED WITH 12UNITS HUMALOG INSULIN & 90 UNITS LANTUS PER PT REQUEST.
--- NOTE | 2018-07-06 13:13 | NURSING ---
LATE ENTRY - 1120 - ACCUCHECK 184. PT MEDICATED WITH 16 UNITS HUMALOG REQUESTED.
[2018-07-06 13:27] VITALS: BP 146/79; PULSE 86; RESP 18; TEMP 36.7; O2SAT 99
[2018-07-06] MEDS: 0.9% NaCl Peripheral Flush Adult/Peds IV (13:34)
[2018-07-06] MEDS: metroNIDAZOLE 500 MG Tablet PO (13:34)
--- NOTE | 2018-07-06 14:11 | CASEMGMT ---
KIKA ROD NOTE: *Pt states [facility] has contacted him and IV ATB will be delivered this evening b/w [phone]. *Pt has an appt w/Dr Abarca tomorrow 07/07 @ 1115 and due for IV ATB w/[facility] @ 1000 as well. Call placed to pharmacist, Elizabeth, who stated Ceftriaxone can be given as early as [phone] tomorrow. ELE Shaikh, @ [facility] made aware and states she will place him on the schedule to be seen tomorrow morning b/w [phone] and that nurse will contact pt to notify him of time they will be arriving. Pt made aware of this and aware of appt w/Dr Abarca @ 1115 tomorrow. Pt denies having any further questions or concerns. Radha LARSONN KIKA CM
[2018-07-06 15:00] VITALS: BP 146/79; PULSE 86; RESP 18; TEMP 36.7; O2SAT 99
--- NOTE | 2018-07-07 15:07 | CASEMGMT ---
KIKA ROD Discharge follow-up phone call [facility]ACBakari: Arjun STRATA: 3 D/C DATE: 07/06/18 Adm Dx: Infected right foot diabetic wound w/osteomyelitis. Call placed to pt for follow-up phone call. answered and stated pt sleeping. agreeable to talking to KIKA ROD and to answering questions. states pt has been doing well since he returned home, other than being sleepy, stating, it always takes him time to get rested up. reports his sugars are under control. States he did get his Flagyl, but she is not sure what happened where they weren't delivered to his room. She stated they were given a prescription and were not able to picker operator the medication until today. She reports pt had an appt w/Dr Abarca today and let her know he did not get the Flagyl started until today. Pt reports that [facility] was out to see pt today to give pt IV ATB's and start teaching and they are coming back out tomorrow at 3 PM. asked how to contact [facility] if she would need to reach them. Informed her that on the weekends, to call [facility] and have [facility] paged. Pt states pt refuses to take the ASA b/c he doesn't like to put any more in his body than he has to. Educated on importance of ASA and stated she will talk to her about it, as she feels it is important for him to take as well. reports she has not made an appt w/Dr Graves yet and inquired why he would need to be seen by him. Explained importance of PCP appt and she stated she would call on Tuesday to make a follow-up appt. also states pt has an appt to be seen @ the [facility] next Tuesday and plans to call on Tuesday to make arrangements to see Dr Pike, preferably @ the wound center. denies having any other questions or concerns at this time. Informed her to call CM for any other concerns or needs. KIKA ROD thanked for choosing [facility]. Radha HAQUE RN, CM
== END 2018-07-06 15:02 | disposition home or self-care (01) | DRG 475 ==
LOC: ED 17:00 → MS2 18:41
PROVIDERS: Anesthesiology; Podiatrist; Admitting Provider Hospitalist; Emergency Provider Emergency Medicine; Family Provider Family Medicine; PCP Family Medicine; Visit Provider Internal Medicine
PROC: 0Y6M0ZF Detachment at Right Foot, Partial 5th Ray, Open Approach (ICD-10-PCS; principal; 2018-07-04 07:15)
DX: T87.43 Infection of amputation stump, right lower extremity (principal); M86.271 Subacute osteomyelitis, right ankle and foot; L03.115 Cellulitis of right lower limb; Z68.41 Body mass index [BMI] 40.0-44.9, adult; E11.65 Type 2 diabetes mellitus with hyperglycemia; E11.42 Type 2 diabetes mellitus with diabetic polyneuropathy; Z79.4 Long term (current) use of insulin; E11.69 Type 2 diabetes mellitus with other specified complication; E66.9 Obesity, unspecified
CPT/HCPCS: 36415; 36569; 73630; 76000; 80048; 80061; 80202; 82962; 83036; 85025; 85652; 86140; 87040; 87070; 87075; 87077; 87102; 87186; 87205; 87206; 87640; 88304; 88305; 88311; 93005; 97162; 97165; 97530; 97802; 99282; 99406; J7030; J7040; A4216; J0696

== ENCOUNTER 2018-07-17 11:04 | Outpatient (RCR) | payer BC, SELFPAY ==
[2018-07-10 17:33] LABS: Anion Gap 9 (5-15); BUN 15 mg/dL (7-18); Calcium,Total 8.8 mg/dL (8.5-10.1); Chloride 103 mmol/L (98-107); Creatinine, Serum 0.71 mg/dL (0.70-1.30); EST Glomerular Filtration Rate 121 mL/min (>60); Est Glom Filt Rate - Afr Amer 147 mL/min (>60); Glucose 112 mg/dL (74-106); Hematocrit 40.9 % (40-54); Hemoglobin 13.4 g/dl (13.0-16.5); Mean Corp Hgb Conc 32.8 g/gl (32-36); Mean Corpuscular Hgb 30.2 pg (27.0-32.0); Mean Corpuscular Volume 92.3 fL (80-94); Mean Platelet Vol. 9.9 fl (6.2-12.0); Platelet Count 190 K/mm3 (150-450); Potassium 3.7 mmol/L (3.5-5.1); RBC Distribution Width CV 13.3 % (11.6-14.6); Red Blood Count 4.43 M/mm3 (4.6-6.2); Sodium Level 140 mmol/L (136-145); White Blood Count 5.4 K/mm3 (4.4-11.0)
[2018-07-10 17:39] LABS: Scan Indicated on CBC? Y/N NO
[2018-07-10 18:08] LABS: Erythrocyte Sedimentation Rate 30 mm/hr (0-20)
[2018-07-17 11:30] LABS: Anion Gap 6 (5-15); BUN 17 mg/dL (7-18); BUN/Creat Ratio 24.5 RATIO (10-20); Calcium,Total 9.2 mg/dL (8.5-10.1); Chloride 102 mmol/L (98-107); Creatinine, Serum 0.69 mg/dL (0.70-1.30); EST Glomerular Filtration Rate 125 mL/min (>60); Est Glom Filt Rate - Afr Amer 152 mL/min (>60); Glucose 133 mg/dL (74-106); Potassium 3.8 mmol/L (3.5-5.1); Sodium Level 137 mmol/L (136-145)
[2018-07-17 11:32] LABS: Erythrocyte Sedimentation Rate 24 mm/hr (0-20)
[2018-07-17 11:33] LABS: Hematocrit 45.8 % (40-54); Hemoglobin 15.2 g/dl (13.0-16.5); Mean Corp Hgb Conc 33.2 g/gl (32-36); Mean Corpuscular Hgb 30.2 pg (27.0-32.0); Mean Corpuscular Volume 90.9 fL (80-94); Mean Platelet Vol. 10.5 fl (6.2-12.0); Platelet Count 237 K/mm3 (150-450); RBC Distribution Width CV 14.2 % (11.6-14.6); RBC Distribution Width SD 46.2 fl (35.1-43.9); Red Blood Count 5.04 M/mm3 (4.6-6.2); White Blood Count 5.9 K/mm3 (4.4-11.0)
[2018-07-17 11:36] LABS: Scan Indicated on CBC? Y/N NO
== END 2018-07-19 23:59 ==
LOC: HHLAB 11:04
PROVIDERS: Internal Medicine Infectious Disease; Family Provider Family Medicine; PCP Family Medicine; Referring Provider Podiatrist; Visit Provider Podiatrist
DX: E11.621 Type 2 diabetes mellitus with foot ulcer (principal); L97.514 Non-pressure chronic ulcer of other part of right foot with necrosis of bone; Z51.81 Encounter for therapeutic drug level monitoring; Z79.2 Long term (current) use of antibiotics; Z79.4 Long term (current) use of insulin; Z89.421 Acquired absence of other right toe(s); Z87.891 Personal history of nicotine dependence
CPT/HCPCS: 80048; 85027; 85652

== ENCOUNTER 2018-07-19 10:30 | Outpatient (RCR) | payer BC, SELFPAY ==
[2018-06-19 01:24] VITALS: BP 145/84; PULSE 88; RESP 20; TEMP 36.6
[2018-06-20 14:44] VITALS: BP 125/78; PULSE 91; RESP 18; TEMP 36.9
--- NOTE | 2018-06-20 16:20 | PN.PCM_ITS ---
(1) Chronic ulcer of left foot with fat layer exposed Status: Chronic Current Visit: Yes Code(s): L97.522 - Non-pressure chronic ulcer of other part of left foot with fat layer exposed (2) Delayed wound healing Status: Chronic Current Visit: Yes Code(s): T14.8XXD - Other injury of unspecified body region, subsequent encounter (3) PVD (peripheral vascular disease) Status: Chronic Current Visit: Yes Code(s): I73.9 - Peripheral vascular disease, unspecified (4) Malnutrition Status: Suspected Current Visit: Yes Code(s): E46 - Unspecified protein- calorie malnutrition (5) Hammer toe of right foot Status: Chronic Current Visit: Yes Code(s): M20.41 - Other hammer toe(s) (acquired), right foot (6) Ulcer of right foot with fat layer exposed Status: Chronic Current Visit: Yes Code(s): L97.512 - Non-pressure chronic ulcer of other part of right foot with fat layer exposed (7) Diabetic foot infection Status: Acute Current Visit: Yes Code(s): E11.628 - Type 2 diabetes mellitus with other skin complications; L08.9 - Local infection of the skin and subcutaneous tissue, unspecified (8) Tobacco use Status: Chronic Current Visit: Yes Code(s): Z72.0 - Tobacco use Type of Wound Date of Service: 06/20/18 Chief Complaint: ulcers/dry gangrene to right foot and left foot. History of Wound: This 57-year-old diabetic male follows up for ulcer to the right foot where he had a previous open fifth toe amputation secondary to an acute wet gangrene infection. This was performed on June 05, 2018. The patient also has ulcers to the distal aspect of bilateral distal second toes. He is currently on a course of antibiotics under the management of infectious disease and continues to have a wound VAC applied to the open amputation site. He has about hyperbaric oxygen therapy at this time. He denies current fever, chill, nausea, vomiting. His right foot is minimally painful. Progress of Wound: Improving - Physical Exam Vital Signs Temp Pulse Resp BP 98.4 F 91 18 125/78 H 06/20/18 14:44 06/20/18 14:44 06/20/18 14:44 06/20/18 14:44 General: Alert, Oriented x3, Cooperative Extremities: No cyanosis, Capillary Refill Less than 3 Seconds, No Calf Tenderness, Diminished Peripheral Pulses - Okay, Edema Skin: Ulcer/ Wound - No purulence, no erythema, streaking, no odor, no infection. The inflammation around the open fifth toe amputation site has significantly reduced. There is exposed fifth metatarsal head and tension when trying to close the skin over the site. The second toe ulcers have granular fibrous bases. The peripheral skin is hairless and atrophic. There is no deep tissue exposed to a lesser toe ulcer site Wound Measurements and Assessment WC - Nurse 1 - General Ulcer Measurement Start: 06/20/18 14:44 Freq: Status: Active Protocol: Activity Type Activity Date Activity User E-Sign Co-Sign Detail Recorded Client Recorded Date Recorded By Document 06/20/18 14:44 RB [id number] 06/20/18 15:07 RB 06/20/18 14:44 Wound Center Nurse 1 [Ulcer Assessment] #8 Right 5th Toe AMP SITE -Combined with other wound No -Current Size (cm) - Length 2 -Current Size (cm) - Width 3.2 -Current Size (cm) - Depth 1.3 -Total Square Cm 6.4 -Photo Taken No -Tunneling No -Undermining/Tunneling No -Circular Undermining No -Classification - Thickness Full Thickness without Exposed Support Structure -Exudate Amt Medium (34-66%) -Exudate Type Serosanguineous -Wound Margin Distinct, Outline Attached -Granulation Amt Medium (34-66%) -Granulation Quality [place] -Slough/Fibrin Yes -Necrosis Amt Medium (34-66%) -Necrotic Tissue Type Adherent Slough -Structure Exposed N/A -Texture (Belle-wound Skin Appearance) Assessed -Moisture (Belle-wound Skin Appearance Assessed ) Maceration -Color (Belle-wound Skin Appearance) Assessed Erythema -Temperature (Belle-wound Skin No Abnormality Appearance) (Pt Warm) -Tenderness on Palpation (Belle-wound No Skin Appearance) -Ulcer Cleansing Rinsed/ Irrigated with Saline -Foul Odor after Cleansing No -Anesthetic Used 4% Lidocaine Solution #5 Right 2nd Toe -Combined with other wound No -Current Size (cm) - Length 0.9 -Current Size (cm) - Width 0.5 -Current Size (cm) - Depth 0.1 -Total Square Cm 0.45 -Photo Taken No -Tunneling No -Undermining/Tunneling No -Circular Undermining No -Exudate Amt Small (1-33%) -Exudate Type Serosanguineous -Wound Margin Distinct, Outline Attached -Granulation Amt Medium (34-66%) -Granulation Quality [place] -Slough/Fibrin Yes -Necrosis Amt Medium (34-66%) -Necrotic Tissue Type Adherent Slough -Structure Exposed N/A -Texture (Belle-wound Skin Appearance) Assessed -Moisture (Belle-wound Skin Appearance Assessed ) -Color (Belle-wound Skin Appearance) Assessed -Temperature (Belle-wound Skin No Abnormality Appearance) (Pt Warm) -Tenderness on Palpation (Belle-wound No Skin Appearance) -Ulcer Cleansing Rinsed/ Irrigated with Saline -Foul Odor after Cleansing No -Anesthetic Used 4% Lidocaine Solution #2 Left 2nd Toe -Combined with other wound No -Current Size (cm) - Length 0.5 -Current Size (cm) - Width 0.7 -Current Size (cm) - Depth 0.2 -Total Square Cm 0.35 -Photo Taken No -Tunneling No -Undermining/Tunneling No -Circular Undermining No -Classification - Thickness Full Thickness without Exposed Support Structure -Exudate Amt Small (1-33%) -Exudate Type Serosanguineous -Wound Margin Distinct, Outline Attached -Granulation Amt Medium (34-66%) -Granulation Quality [place] -Slough/Fibrin Yes -Necrosis Amt Small (1-33%) -Necrotic Tissue Type Adherent Slough -Structure Exposed N/A -Texture (Belle-wound Skin Appearance) Assessed -Moisture (Belle-wound Skin Appearance Assessed ) -Color (Belle-wound Skin Appearance) Assessed -Temperature (Belle-wound Skin No Abnormality Appearance) (Pt Warm) -Tenderness on Palpation (Belle-wound No Skin Appearance) -Ulcer Cleansing Rinsed/ Irrigated with Saline -Foul Odor after Cleansing No -Anesthetic Used 4% Lidocaine Solution [Edema Assessment] -Lower Limb Edema Present Yes -Right Calf (cm) 44 -Right Ankle (cm) 26.2 WC - Nurse 2 - General Ulcer CM Notes Start: 06/20/18 14:44 Freq: Status: Active Protocol: Activity Type Activity Date Activity User E-Sign Co-Sign Detail Recorded Client Recorded Date Recorded By Document 06/20/18 15:33 ALEENA [id number] 06/20/18 15:34 JF 06/20/18 15:33 Wound Center Nurse 2 [Procedure/Treatment] #8 Right 5th Toe AMP SITE -Time 15:33 -Correct Patient Yes -Correct Side, Site, Position Yes -Correct Procedure Yes -Procedure Performed Yes -Type of Procedure Debridement -Clinical Debridement Subcutaneous -Post Debridement Size (cm) - Length 2.1 -Post Debridement Size (cm) - Width 3.3 -Post Debridement Size (cm) - Depth 1.3 -Total Square Cm 6.93 -Wound/Ulcer Outcome Not Healed -Ulcer Cleansing Rinsed/ Irrigated with Saline -Foul Odor after Cleansing No -Bioengineered Tissue No -Bleeding Controlled with Pressure -Treatment Response Procedure Tolerated Well #5 Right 2nd Toe -Time 15:33 -Correct Patient Yes -Correct Side, Site, Position Yes -Correct Procedure Yes -Procedure Performed Yes -Type of Procedure Debridement -Clinical Debridement Subcutaneous -Post Debridement Size (cm) - Length 1 -Post Debridement Size (cm) - Width 0.5 -Post Debridement Size (cm) - Depth 0.1 -Total Square Cm 0.5 -Wound/Ulcer Outcome Not Healed -Ulcer Cleansing Rinsed/ Irrigated with Saline -Foul Odor after Cleansing No -Bioengineered Tissue No -Bleeding Controlled with Pressure -Treatment Response Procedure Tolerated Well #2 Left 2nd Toe -Time 15:33 -Correct Patient Yes -Correct Side, Site, Position Yes -Correct Procedure Yes -Procedure Performed Yes -Type of Procedure Debridement -Clinical Debridement Subcutaneous -Post Debridement Size (cm) - Length 0.5 -Post Debridement Size (cm) - Width 0.8 -Post Debridement Size (cm) - Depth 0.2 -Total Square Cm 0.40 -Wound/Ulcer Outcome Not Healed -Ulcer Cleansing Rinsed/ Irrigated with Saline -Foul Odor after Cleansing No -Bioengineered Tissue No -Bleeding Controlled with Pressure -Treatment Response Procedure Tolerated Well [See Physician Procedure note for Specifics] Pain Scale: 0-10 Numeric [Pain] -Is Patient Pain Free? Yes Musculoskeletal: No Tenderness to Palpation of Joints or Extremities, Muscle Wasting, - - Fifth toe amputation right Neurological: - - Lack of epicritic sensation to light touch bilateral lower extremities consistent with neuropathy Psych/Mental Status: Normal Affect, Appropriate Debridement Note Post-Debridement Measurements/Treatment WC - Nurse 2 - General Ulcer CM Notes Start: 06/20/18 14:44 Freq: Status: Active Protocol: Activity Type Activity Date Activity User E-Sign Co-Sign Detail Recorded Client Recorded Date Recorded By Document 06/20/18 15:33 ALEENA [id number] 06/20/18 15:34 ALEENA 06/20/18 15:33 Wound Center Nurse 2 #8 Right 5th Toe AMP SITE -Time 15:33 -Correct Patient Yes -Correct Side, Site, Position Yes -Correct Procedure Yes -Procedure Performed Yes -Type of Procedure Debridement -Clinical Debridement Subcutaneous -Post Debridement Size (cm) - Length 2.1 -Post Debridement Size (cm) - Width 3.3 -Post Debridement Size (cm) - Depth 1.3 -Total Square Cm 6.93 -Wound/Ulcer Outcome Not Healed -Ulcer Cleansing Rinsed/ Irrigated with Saline -Foul Odor after Cleansing No -Bioengineered Tissue No -Bleeding Controlled with Pressure -Treatment Response Procedure Tolerated Well #5 Right 2nd Toe -Time 15:33 -Correct Patient Yes -Correct Side, Site, Position Yes -Correct Procedure Yes -Procedure Performed Yes -Type of Procedure Debridement -Clinical Debridement Subcutaneous -Post Debridement Size (cm) - Length 1 -Post Debridement Size (cm) - Width 0.5 -Post Debridement Size (cm) - Depth 0.1 -Total Square Cm 0.5 -Wound/Ulcer Outcome Not Healed -Ulcer Cleansing Rinsed/ Irrigated with Saline -Foul Odor after Cleansing No -Bioengineered Tissue No -Bleeding Controlled with Pressure -Treatment Response Procedure Tolerated Well #2 Left 2nd Toe -Time 15:33 -Correct Patient Yes -Correct Side, Site, Position Yes -Correct Procedure Yes -Procedure Performed Yes -Type of Procedure Debridement -Clinical Debridement Subcutaneous -Post Debridement Size (cm) - Length 0.5 -Post Debridement Size (cm) - Width 0.8 -Post Debridement Size (cm) - Depth 0.2 -Total Square Cm 0.40 -Wound/Ulcer Outcome Not Healed -Ulcer Cleansing Rinsed/ Irrigated with Saline -Foul Odor after Cleansing No -Bioengineered Tissue No -Bleeding Controlled with Pressure -Treatment Response Procedure Tolerated Well Pain Scale: 0-10 Numeric Is Patient Pain Free? Yes Wound debrided: lateral forefoot Laterality: Right Wound Grade/Stage: grade 2 Type of Debridement: Excisional debridement Anesthesia Used: 4% Lidocaine Solution Depth: in the subcutaneous layer Percentage of wound debrided: 100 Instrument Used: #15 blade Tissue Removed: fibrous, devitalized subcutaneous, biofilm, slough Severity: Fat Layer Exposed Amount of bleeding with debridement: Mild Bleeding Controlled with: Pressure Patient tolerated procedure well - Additional Wound Wound debrided: 2nd toe Laterality: Right Wound Grade/Stage: grade 1 Type of Debridement: Excisional debridement Anesthesia Used: 4% Lidocaine Solution Depth: in the subcutaneous layer Percentage of wound debrided: 100 Instrument Used: #15 blade Tissue Removed: fibrous, devitalized subcutaneous, biofilm, slough Severity: Fat Layer Exposed Amount of bleeding with debridement: Mild Bleeding Controlled with: Pressure Patient tolerated procedure: Patient tolerated procedure well - Additional Wound Wound debrided: second toe Laterality: Left Wound Grade/Stage: grade 1 Type of Debridement: Excisional debridement Anesthesia Used: 4% Lidocaine Solution Depth: in the subcutaneous layer Percentage of wound debrided: 100 Instrument Used: #15 blade Tissue Removed: fibrous, devitalized subcutaneous, biofilm, slough Severity: Fat Layer Exposed Amount of bleeding with debridement: Mild Bleeding Controlled with: Pressure Patient tolerated procedure: Patient tolerated procedure well Assessment/Plan Active Problems Delayed wound healing (Chronic) PVD (peripheral vascular disease) (Chronic) Chronic ulcer of left foot with fat layer exposed (Chronic) Hammer toe of right foot (Chronic) Ulcer of right foot with fat layer exposed (Chronic) Diabetic foot infection (Acute) Tobacco use (Chronic) Assessment: s/p fifth toe amputation of the right foot secondary to wet gangrene; this is not a grade 2 ulcer at this site. Peter grade 1 ulcer right and left 2 toe. DM with neuropathy. Delayed ulcer healing. PVD. Non compliance history Plan: I reviewed and discussed his case today. Debridement was performed as noted in the clinical panel. To continue with wound VAC to the right forefoot site; 150 mmHg continuous. He was advised to change the other ulcer sites with hydrogel. Patient is to keep his feet clean and dry each day and was instructed again to not soak his feet. Patient has offloading surgical shoes in the areas of the ulcers. Place weight on the heels. He is to continue to wear these at all times when ambulation is necessary was instructed to try and keep pressure off of the ulcer sites. He had a recent fifth right toe amputation performed at the hospital with Dr. Craft. His intraoperative microbiology report demonstrated strep agalactiae, anaerobic cocci, Morganelli morganii sp sibonii. I recommended he make arrangements at work to allow him to keep pressure off of his ulcer sites. Patient was instructed to be nonweightbearing as much as possible during this healing process. The intraoperative pathology report are still pending including a clearance fragment. His last lab values included white blood cell count of 8.3, ESR 80, C-reactive protein 48.20. LEAS studies were completed while the patient was in the hospital and were read as possible mild small vessel disease of the right foot/toes. No additional intervention was recommended. We can reconsider repeat x-rays in the future if necessary. I recommend a diet high in protein to this patient to help optimize ulcer healing potential. Prior authorization is still pending; he will confirm his current deductible status prior to moving forward. Smoking cessation was disc ussed with this patient again today. Patient was educated on all signs and symptoms of local and systemic infection and he was instructed to go to the emergency room immediately should he notice any of these. Patient is also interested in hyperbaric oxygen treatment and he does not have current osteomyelitis now that he has had surgical resection however I will confirm the criteria to get approved for hyperbaric oxygen. I recommend application of advanced wound care product, epi cord. Prior authorization will be initiated. All questions were answered to the patient's satisfaction during his visit today. Due to the exposure of the fifth metatarsal head at this time I also offered him a surgical fifth ray resection option with primary closure which may expedite the healing of the right foot. No guarantees were made and he understands that the site milk may still demonstrate delayed healing. He was advised to avoid tobacco products. He will think about this option and will discuss this again next week. I also highly encouraged him to follow through with a nutrition referral he has a lot of dietary questions today. Patient will follow-up in clinic in 1 week to check on progress, but was instructed to call the office sooner if needed. I answered all his questions.
[2018-06-28 10:39] VITALS: BP 138/75; PULSE 79; RESP 20; TEMP 36.6
--- NOTE | 2018-06-28 11:45 | PN.PCM_ITS ---
(1) Chronic ulcer of left foot with fat layer exposed Status: Chronic Current Visit: Yes Code(s): L97.522 - Non-pressure chronic ulcer of other part of left foot with fat layer exposed (2) Delayed wound healing Status: Chronic Current Visit: Yes Code(s): T14.8XXD - Other injury of unspecified body region, subsequent encounter (3) PVD (peripheral vascular disease) Status: Chronic Current Visit: Yes Code(s): I73.9 - Peripheral vascular disease, unspecified (4) Malnutrition Status: Suspected Current Visit: Yes Code(s): E46 - Unspecified protein- calorie malnutrition (5) Hammer toe of right foot Status: Chronic Current Visit: Yes Code(s): M20.41 - Other hammer toe(s) (acquired), right foot (6) Ulcer of right foot with fat layer exposed Status: Chronic Current Visit: Yes Code(s): L97.512 - Non-pressure chronic ulcer of other part of right foot with fat layer exposed (7) Diabetic foot infection Status: Acute Current Visit: Yes Code(s): E11.628 - Type 2 diabetes mellitus with other skin complications; L08.9 - Local infection of the skin and subcutaneous tissue, unspecified (8) Tobacco use Status: Chronic Current Visit: Yes Code(s): Z72.0 - Tobacco use (9) 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 This was performed on June 05, 2018. The patient also has ulcers to the distal aspect of bilateral distal second toes. He is currently on a course of antibiotics under the management of infectious disease and continues to have a wound VAC applied to the open amputation site. He has about hyperbaric oxygen therapy at this time. He denies current fever, chill, nausea, vomiting. He denies pain today. Progress of Wound: Improving - Physical Exam Vital Signs Temp Pulse Resp BP 97.9 F 79 20 H 138/75 H 10/10/18 10:39 06/28/18 10:39 06/28/18 10:39 06/28/18 10:39 General: Alert, Oriented x3, Cooperative Extremities: No cyanosis, Capillary Refill Less than 3 Seconds, No Calf Tenderness - Negative Ida and Maldonado sign bilateral, Diminished Peripheral Pulses, Edema - Mild bilateral, - - Fifth toe amputation right foot Skin: Ulcer/ Wound - No purulence, erythema, streaking, odor, eschar, necrosis bilateral. There is fibrosing granulation tissue to bilateral second toes. There is granulation tissue and fibrous tissue to the open fifth toe amputation site with lack of overall fifth metatarsal head coverage. This bone is exposed and there is no discoloration or softening noted. Wound Measurements and Assessment WC - Nurse 1 - General Ulcer Measurement Start: 06/20/18 14:44 Freq: Status: Active Protocol: Activity Type Activity Date Activity User E-Sign Co-Sign Detail Recorded Client Recorded Date Recorded By Document 06/28/18 10:39 DL [id number] 06/28/18 10:52 DL 06/28/18 10:39 Wound Center Nurse 1 [Ulcer Assessment] #8 Right 5th Toe AMP SITE -Current Size (cm) - Length 3.3 -Current Size (cm) - Width 1.6 -Current Size (cm) - Depth 0.7 -Total Square Cm 5.28 -Photo Taken No -Exudate Amt Medium (34-66%) -Exudate Type Serosanguineous -Wound Margin Distinct, Outline Attached -Granulation Amt None Present (0 %) -Necrosis Amt Large (67-100%) -Necrotic Tissue Type Adherent Slough -Structure Exposed N/A -Texture (Belle-wound Skin Appearance) Localized Edema Scarring -Moisture (Belle-wound Skin Appearance Maceration ) -Color (Belle-wound Skin Appearance) Hemosiderin Staining -Temperature (Belle-wound Skin No Abnormality Appearance) (Pt Warm) -Ulcer Cleansing Wound Cleanser -Foul Odor after Cleansing No -Anesthetic Used 4% Lidocaine Solution #5 Right 2nd Toe -Current Size (cm) - Length 0.5 -Current Size (cm) - Width 0.4 -Current Size (cm) - Depth 0.1 -Total Square Cm 0.20 -Photo Taken No -Exudate Amt None Present (0 %) -Wound Margin Thickened -Granulation Amt None Present (0 %) -Necrosis Amt Large (67-100%) -Necrotic Tissue Type Adherent Slough -Structure Exposed N/A -Texture (Belle-wound Skin Appearance) Scarring -Moisture (Belle-wound Skin Appearance Dry/Scaly ) -Color (Belle-wound Skin Appearance) Hemosiderin Staining -Temperature (Belle-wound Skin No Abnormality Appearance) (Pt Warm) -Ulcer Cleansing Wound Cleanser -Foul Odor after Cleansing No -Anesthetic Used 4% Lidocaine Solution #2 Left 2nd Toe -Current Size (cm) - Length 0.2 -Current Size (cm) - Width 0.3 -Current Size (cm) - Depth 0.2 -Total Square Cm 0.06 -Photo Taken No -Exudate Amt None Present (0 %) -Wound Margin Flat & Intact -Granulation Amt None Present (0 %) -Slough/Fibrin Yes -Necrosis Amt Small (1-33%) -Necrotic Tissue Type Adherent Slough -Structure Exposed N/A -Texture (Belle-wound Skin Appearance) Scarring -Moisture (Belle-wound Skin Appearance Dry/Scaly ) -Color (Belle-wound Skin Appearance) Hemosiderin Staining Rubor -Temperature (Belle-wound Skin No Abnormality Appearance) (Pt Warm) -Ulcer Cleansing Wound Cleanser -Foul Odor after Cleansing No -Anesthetic Used 4% Lidocaine Solution [Edema Assessment] -Right Calf (cm) 37.7 -Right Ankle (cm) 27 -Left Calf (cm) 39.7 -Left Ankle (cm) 25 WC - Nurse 2 - General Ulcer CM Notes Start: 06/20/18 14:44 Freq: Status: Active Protocol: Activity Type Activity Date Activity User E-Sign Co-Sign Detail Recorded Client Recorded Date Recorded By Document 06/28/18 11:04 [id number] 06/28/18 11:07 06/28/18 11:04 Wound Center Nurse 2 [Procedure/Treatment] #8 Right 5th Toe AMP SITE -Time 11:05 -Correct Patient Yes -Correct Side, Site, Position Yes -Correct Procedure Yes -Procedure Performed Yes -Type of Procedure Debridement -Clinical Debridement Subcutaneous -Post Debridement Size (cm) - Length 3.4 -Post Debridement Size (cm) - Width 1.7 -Post Debridement Size (cm) - Depth 0.7 -Total Square Cm 5.78 -Wound/Ulcer Outcome Not Healed -Ulcer Cleansing Rinsed/ Irrigated with Saline -Foul Odor after Cleansing No -Bioengineered Tissue No -Topical Lidocaine (%) 4 -Bleeding Controlled with Pressure -Treatment Response Procedure Tolerated Well #5 Right 2nd Toe -Time 11:05 -Correct Patient Yes -Correct Side, Site, Position Yes -Correct Procedure Yes -Procedure Performed Yes -Type of Procedure Debridement -Clinical Debridement Subcutaneous -Post Debridement Size (cm) - Length 0.6 -Post Debridement Size (cm) - Width 0.5 -Post Debridement Size (cm) - Depth 0.2 -Total Square Cm 0.30 -Wound/Ulcer Outcome Not Healed -Ulcer Cleansing Rinsed/ Irrigated with Saline -Foul Odor after Cleansing No -Bioengineered Tissue No -Topical Lidocaine (%) 4 -Bleeding Controlled with Pressure -Treatment Response Procedure Tolerated Well #2 Left 2nd Toe -Time 11:06 -Correct Patient Yes -Correct Side, Site, Position Yes -Correct Procedure Yes -Procedure Performed Yes -Type of Procedure Debridement -Clinical Debridement Subcutaneous -Post Debridement Size (cm) - Length 0.3 -Post Debridement Size (cm) - Width 0.4 -Post Debridement Size (cm) - Depth 0.2 -Total Square Cm 0.12 -Wound/Ulcer Outcome Not Healed -Ulcer Cleansing Rinsed/ Irrigated with Saline -Foul Odor after Cleansing No -Bioengineered Tissue No -Topical Lidocaine (%) 4 -Bleeding Controlled with Pressure -Treatment Response Procedure Tolerated Well [See Physician Procedure note for Specifics] Pain Scale: 0-10 Numeric [Pain] -Is Patient Pain Free? Yes Musculoskeletal: No Tenderness to Palpation of Joints or Extremities, Muscle Wasting, - - Right fifth toe amputation. Compartments remain soft bilateral lower extremities. Dorsal contraction of lesser digits bilateral Neurological: - - Lack of epicritic sensation light touch bilateral Psych/Mental Status: Normal Affect, Appropriate Debridement Note Post-Debridement Measurements/Treatment WC - Nurse 2 - General Ulcer CM Notes Start: 06/20/18 14:44 Freq: Status: Active Protocol: Activity Type Activity Date Activity User E-Sign Co-Sign Detail Recorded Client Recorded Date Recorded By Document 06/20/18 15:33 [id number] 06/20/18 15:34 Document 06/28/18 11:04 [id number] 06/28/18 11:07 TM 06/20/18 06/28/18 15:33 11:04 Wound Center Nurse 2 #8 Right 5th Toe AMP SITE -Time 15:33 11:05 -Correct Patient Yes Yes -Correct Side, Site, Position Yes Yes -Correct Procedure Yes Yes -Procedure Performed Yes Yes -Type of Procedure Debridement Debridement -Clinical Debridement Subcutaneous Subcutaneous -Post Debridement Size (cm) - Length 2.1 3.4 -Post Debridement Size (cm) - Width 3.3 1.7 -Post Debridement Size (cm) - Depth 1.3 0.7 -Total Square Cm 6.93 5.78 -Wound/Ulcer Outcome Not Healed Not Healed -Ulcer Cleansing Rinsed/ Rinsed/ Irrigated with Irrigated with Saline Saline -Foul Odor after Cleansing No No -Bioengineered Tissue No No -Topical Lidocaine (%) 4 -Bleeding Controlled with Pressure Pressure -Treatment Response Procedure Procedure Tolerated Well Tolerated Well #5 Right 2nd Toe -Time 15:33 11:05 -Correct Patient Yes Yes -Correct Side, Site, Position Yes Yes -Correct Procedure Yes Yes -Procedure Performed Yes Yes -Type of Procedure Debridement Debridement -Clinical Debridement Subcutaneous Subcutaneous -Post Debridement Size (cm) - Length 1 0.6 -Post Debridement Size (cm) - Width 0.5 0.5 -Post Debridement Size (cm) - Depth 0.1 0.2 -Total Square Cm 0.5 0.30 -Wound/Ulcer Outcome Not Healed Not Healed -Ulcer Cleansing Rinsed/ Rinsed/ Irrigated with Irrigated with Saline Saline -Foul Odor after Cleansing No No -Bioengineered Tissue No No -Topical Lidocaine (%) 4 -Bleeding Controlled with Pressure Pressure -Treatment Response Procedure Procedure Tolerated Well Tolerated Well #2 Left 2nd Toe -Time 15:33 11:06 -Correct Patient Yes Yes -Correct Side, Site, Position Yes Yes -Correct Procedure Yes Yes -Procedure Performed Yes Yes -Type of Procedure Debridement Debridement -Clinical Debridement Subcutaneous Subcutaneous -Post Debridement Size (cm) - Length 0.5 0.3 -Post Debridement Size (cm) - Width 0.8 0.4 -Post Debridement Size (cm) - Depth 0.2 0.2 -Total Square Cm 0.40 0.12 -Wound/Ulcer Outcome Not Healed Not Healed -Ulcer Cleansing Rinsed/ Rinsed/ Irrigated with Irrigated with Saline Saline -Foul Odor after Cleansing No No -Bioengineered Tissue No No -Topical Lidocaine (%) 4 -Bleeding Controlled with Pressure Pressure -Treatment Response Procedure Procedure Tolerated Well Tolerated Well Pain Scale: 0-10 Numeric Is Patient Pain Free? Yes Yes Wound debrided: lateral foot Laterality: Right Wound Grade/Stage: grade 2 Type of Debridement: Excisional debridement Anesthesia Used: 4% Lidocaine Solution Depth: in the subcutaneous layer Percentage of wound debrided: 100 Instrument Used: #15 blade, Forceps Tissue Removed: fibrous, devitalized subcutaneous, biofilm, slough Severity: Fat Layer Exposed Amount of bleeding with debridement: Mild Bleeding Controlled with: Pressure Patient tolerated procedure well - Additional Wound Wound debrided: 2nd toe Laterality: Right Wound Grade/Stage: grade 1 Type of Debridement: Excisional debridement Anesthesia Used: 4% Lidocaine Solution Depth: in the subcutaneous layer Percentage of wound debrided: 100 Instrument Used: #15 blade Tissue Removed: fibrous, devitalized subcutaneous, biofilm, slough Severity: Fat Layer Exposed Amount of bleeding with debridement: Mild Bleeding Controlled with: Pressure Patient tolerated procedure: Patient tolerated procedure well - Additional Wound Wound debrided: 2nd toe Laterality: Left Wound Grade/Stage: grade 1 Type of Debridement: Excisional debridement Anesthesia Used: 4% Lidocaine Solution Depth: in the subcutaneous layer Percentage of wound debrided: 100 Instrument Used: #15 blade Tissue Removed: fibrous, devitalized subcutaneous, biofilm, slough Severity: Fat Layer Exposed Amount of bleeding with debridement: Mild Bleeding Controlled with: Pressure Patient tolerated procedure: Patient tolerated procedure well Assessment/Plan Active Problems Delayed wound healing (Chronic) PVD (peripheral vascular disease) (Chronic) Chronic ulcer of left foot with fat layer exposed (Chronic) Hammer toe of right foot (Chronic) Ulcer of right foot with fat layer exposed (Chronic) 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 Peter grade 1 ulcer right and left 2 toe. Hammertoes bilateral. DM with neuropathy. Delayed ulcer healing. PVD. Non compliance history Plan: I reviewed and discussed his case today. Debridement was performed as noted in the clinical panel. To continue with wound VAC to the right forefoot site; 150 mmHg continuous. He was advised to change the other ulcer sites with hydrogel. Patient is to keep his feet clean and dry each day and was instructed again to not soak his feet. Patient has offloading surgical shoes in the areas of the ulcers. Place weight on the heels. He is to continue to wear these at all times when ambulation is necessary was instructed to try and keep pressure off of the ulcer sites. His intraoperative microbiology report demonstrated strep agalactiae, anaerobic cocci, Morganelli morganii sp sibonii. I recommended he make arrangements at work to allow him to keep pressure off of his ulcer sites. Patient was instructed to be nonweightbearing as much as possible during this healing process. His clearance fragment results were previously reviewed. His last lab values included white blood cell count of 8.3, ESR 80, C-reactive protein 48.20. LEAS studies were completed while the patient was in the hospital and were read as possible mild small vessel disease of the right foot/toes. No additional intervention was recommended. We can reconsider repeat x-rays in the future if necessary. I recommend a diet high in protein to this patient to help optimize ulcer healing potential. Prior authorization was obtained for advanced wound care product application however n ow I am concerned about the amount of the exposed bone and prominence with lack of soft tissue coverage to the previous fifth toe amputation site. I recommend surgical removal of the fifth metatarsal head with delayed primary closure. The indications, planned procedure, possible benefits, risks, complications, and anticipated healing time and management were discussed. He understands there is no guarantee on healing. Recommend this is a potentially staged procedure. [facility] certified surgical technician will contact him to help arrange this within the next couple of weeks. His primary care physician is Dr. Graves and this is noted. Smoking cessation was discussed with this patient again today. Patient was educated on all signs and symptoms of local and systemic infection and he was instructed to go to the emergency room immediately should he notice any of these. The advanced wound care product application will be considered in the future if indicated. All questions were answered to the patient's satisfaction during his visit today. I also highly encouraged him to follow through with a nutrition referral he has a lot of dietary questions today. Patient will follow-up in clinic in 1 week to check on progress, but was instructed to call the office sooner if needed.
[2018-07-12 09:16] VITALS: BP 146/95; PULSE 95; RESP 16; TEMP 36.4
--- NOTE | 2018-07-12 10:19 | PCM.PN.ID ---
Subjective: Feeling well, no issues with picc. Foot doing better. No fever, no n/v/d. Avoiding etoh. - Physical Exam General: Alert, Cooperative, No apparent distress Lungs: Clear to auscultation, Normal air movement Cardiovascular: Regular rate, Regular Rhythm Abdomen: Soft, Non Tender, Non-Distended Skin: Ulcer/ Wound - foot wrapped Vital Signs Temp Pulse Resp BP 97.5 F L 95 16 146/95 H 07/12/18 09:16 07/12/18 09:16 07/12/18 09:16 07/12/18 09:16 Finger Stick Blood Glucose 82 Medical Necessity - Tobacco Use Smoking Status: Current some day smoker Route of nutrition/ use of supplements: [] Nutritional Intake: [] IV Site: [] White Catheter: [] - Assessment/Plan Antibiotics: [] Assessment/Plan: [] R foot DM infection s/p 5th toe resection 06/05/18 for osteo. Surg cx at that time had clear margins. He grew 06/05 morganella and GBS with anaerobes in other OR specimen. 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 Then developed wound infection with surgical debridement done 07/[address] Abarca. Picc placed. Wound cx now with providencia, GBS, and GPR. Sent home on iv ceftriaxone 2gm qday and po flagyl 500mg tid for 6 weeks, stop date 08/15/18, weekly bmp, cbc, and esr while on iv abx. Doing well at home, foot improving, ESR better, no issues with picc. Will follow, d/w Dr. Abarca. Plan on seeing him at end of treatment course.
--- NOTE | 2018-07-12 11:15 | PCM.WC.PN ---
(1) Chronic ulcer of left foot with fat layer exposed Status: Chronic Current Visit: Yes Code(s): L97.522 - Non-pressure chronic ulcer of other part of left foot with fat layer exposed (2) Delayed wound healing Status: Chronic Current Visit: Yes Code(s): T14.8XXD - Other injury of unspecified body region, subsequent encounter (3) PVD (peripheral vascular disease) Status: Chronic Current Visit: Yes Code(s): I73.9 - Peripheral vascular disease, unspecified (4) Malnutrition Status: Deleted Current Visit: Yes Code(s): E46 - Unspecified protein-calorie malnutrition (5) Hammer toe of right foot Status: Chronic Current Visit: Yes Code(s): M20.41 - Other hammer toe(s) (acquired), right foot (6) Ulcer of right foot with fat layer exposed Status: Chronic Current Visit: Yes Code(s): L97.512 - Non-pressure chronic ulcer of other part of right foot with fat layer exposed (7) Diabetic foot infection Status: Deleted Current Visit: Yes Code(s): E11.628 - Type 2 diabetes mellitus with other skin complications; L08.9 - Local infection of the skin and subcutaneous tissue, unspecified (8) Tobacco use Status: Chronic Current Visit: Yes Code(s): Z72.0 - Tobacco use (9) Type 2 diabetes mellitus with diabetic polyneuropathy Status: Chronic Current Visit: Yes Code(s): E11.42 - Type 2 diabetes mellitus with diabetic polyneuropathy (10) Cellulitis of right foot Status: Chronic Current Visit: Yes Code(s): L03.115 - Cellulitis of right lower limb Type of Wound Date of Service: 07/12/18 Chief Complaint: Ulcers of right and left foot History of Wound: This 57-year-old diabetic male follows up for ulcer to the right foot where he had a previous resection of the fifth ray secondary to an acute wet gangrene infection. The patient also has ulcers to the distal aspect of bilateral distal second toes. He is currently on a course of antibiotics under the management of infectious disease and continues to have a wound VAC applied to the open amputation site. He saw the infectious disease physician this morning as well. He denies current fever, chill, nausea, vomiting. He denies pain today. Progress of Wound: Improving - Physical Exam Vital Signs Temp Pulse Resp BP 97.5 F L 95 16 146/95 H 07/12/18 09:16 07/12/18 09:16 07/12/18 09:16 07/12/18 09:16 General: Alert, Oriented x3, Cooperative Extremities: No cyanosis, Capillary Refill Less than 3 Seconds, No Calf Tenderness - Negative Ida and Maldonado sign, Diminished Peripheral Pulses, Edema - Decreased right lower extremity, - - Resection of fifth ray right foot. Dorsal contraction of lesser digits bilateral. Skin: Ulcer/ Wound - No purulence, erythema, streaking, odor, or infection, maceration, or exposed bone or joint noted bilateral lower extremities. There is full epithelialization of the right second toe and the site has healed. There is subcutaneous tissue still exposed to the left second toe and also 2 very small central to distal aspect of the previous surgical site. Otherwise sutures remain intact and the skin edges are reapproximated without necrosis. The open granulation tissue that is exposed measures approximately 5 mm in length with a width of 4 mm in depth of 1 mm Wound Measurements and Assessment WC - Nurse 1 - General Ulcer Measurement Start: 06/20/18 14:44 Freq: Status: Active Protocol: Activity Type Activity Date Activity User E-Sign Co-Sign Detail Recorded Client Recorded Date Recorded By Document 07/12/18 09:16 [id number] 07/12/18 09:32 07/12/18 09:16 Wound Center Nurse 1 [Ulcer Assessment] #8 Right 5th Toe AMP SITE -Combined with other wound No -Current Size (cm) - Length 6.5 -Current Size (cm) - Width 0.1 -Current Size (cm) - Depth 0.1 -Total Square Cm 0.65 -Photo Taken Yes -Epithelialization None Present -Tunneling No -Undermining/Tunneling No -Circular Undermining No -Temperature (Belle-wound Skin No Abnormality Appearance) (Pt Warm) -Tenderness on Palpation (Belle-wound Yes Skin Appearance) -Ulcer Cleansing soap #5 Right 2nd Toe -Combined with other wound No -Current Size (cm) - Length 0.1 -Current Size (cm) - Width 0.1 -Current Size (cm) - Depth 0.1 -Total Square Cm 0.01 -Date of Last Picture (Recall this 07/12/18 field) -Photo Taken Yes -Epithelialization None Present -Tunneling No -Undermining/Tunneling No -Circular Undermining No -Necrosis Amt Large (67-100%) -Necrotic Tissue Type Eschar -Temperature (Belle-wound Skin No Abnormality Appearance) (Pt Warm) -Tenderness on Palpation (Belle-wound No Skin Appearance) -Ulcer Cleansing Not Cleansed -Foul Odor after Cleansing No #2 Left 2nd Toe -Combined with other wound No -Current Size (cm) - Length 0.1 -Current Size (cm) - Width 0.1 -Current Size (cm) - Depth 0.1 -Total Square Cm 0.01 -Date of Last Picture (Recall this 07/12/18 field) -Photo Taken Yes -Epithelialization None Present -Tunneling No -Undermining/Tunneling No -Circular Undermining No -Temperature (Belle-wound Skin No Abnormality Appearance) (Pt Warm) -Ulcer Cleansing soap -Foul Odor after Cleansing Yes [Edema Assessment] -Lower Limb Edema Present NA WC - Nurse 2 - General Ulcer CM Notes Start: 06/20/18 14:44 Freq: Status: Active Protocol: Activity Type Activity Date Activity User E-Sign Co-Sign Detail Recorded Client Recorded Date Recorded By Document 07/12/18 09:56 [id number] 07/12/18 10:02 07/12/18 09:56 Wound Center Nurse 2 [Procedure/Treatment] #8 Right 5th Toe AMP SITE -Time 09:57 -Correct Patient Yes -Correct Side, Site, Position Yes -Correct Procedure Yes -Procedure Performed Yes -Post Debridement Size (cm) - Length 6.5 -Post Debridement Size (cm) - Width 2.1 -Post Debridement Size (cm) - Depth 0 -Total Square Cm 13.65 -Wound/Ulcer Outcome Amputation -Ulcer Cleansing Rinsed/ Irrigated with Saline -Foul Odor after Cleansing No -Bioengineered Tissue No -Expiration Date 01/17/23 -Product Lot Number [id number] -Percent Used 50 -Saline Lot Number [id number] -Topical Lidocaine (%) 50 -Injectable Lidocaine (%) 4 -Bleeding Controlled with NA -Treatment Response Procedure Tolerated Well #5 Right 2nd Toe -Time 09:57 -Correct Patient Yes -Correct Side, Site, Position Yes -Correct Procedure Yes -Procedure Performed Yes -Post Debridement Size (cm) - Length 0 -Post Debridement Size (cm) - Width 0 -Post Debridement Size (cm) - Depth 0 -Total Square Cm 0 -Wound/Ulcer Outcome Healed- Epithelialized -Ulcer Cleansing Rinsed/ Irrigated with Saline -Foul Odor after Cleansing No -Bioengineered Tissue No -Bleeding Controlled with NA -Treatment Response Procedure Tolerated Well #2 Left 2nd Toe -Time 09:57 -Correct Patient Yes -Correct Side, Site, Position Yes -Correct Procedure Yes -Procedure Performed Yes -Type of Procedure Debridement -Clinical Debridement Subcutaneous -Post Debridement Size (cm) - Length 0.2 -Post Debridement Size (cm) - Width 0.2 -Post Debridement Size (cm) - Depth 0.1 -Total Square Cm 0.04 -Wound/Ulcer Outcome Not Healed -Ulcer Cleansing Rinsed/ Irrigated with Saline -Foul Odor after Cleansing No -Bioengineered Tissue Yes -Type of bioengineered Tissue EPIFIX -Expiration Date 01/17/23 -Product Lot Number [id number] -Percent Used 50 -Saline Lot Number [id number] -Topical Lidocaine (%) 5 -Bleeding Controlled with Pressure -Treatment Response Procedure Tolerated Well [See Physician Procedure note for Specifics] Pain Scale: 0-10 Numeric [Pain] -Is Patient Pain Free? Yes Musculoskeletal: No Tenderness to Palpation of Joints or Extremities, Muscle Wasting Neurological: - - Lack of epicritic sensation light touch Psych/Mental Status: Normal Affect, Appropriate Debridement Note Post-Debridement Measurements/Treatment WC - Nurse 2 - General Ulcer CM Notes Start: 06/20/18 14:44 Freq: Status: Active Protocol: Activity Type Activity Date Activity User E-Sign Co-Sign Detail Recorded Client Recorded Date Recorded By Document 06/20/18 15:33 [id number] 06/20/18 15:34 Document 06/28/18 11:04 TM [id number] 06/28/18 11:07 TM Document 07/12/18 09:56 TM [id number] 07/12/18 10:02 TM 06/20/18 06/28/18 07/12/18 15:33 11:04 09:56 Wound Center Nurse 2 #8 Right 5th Toe AMP SITE -Time 15:33 11:05 09:57 -Correct Patient Yes Yes Yes -Correct Side, Site, Position Yes Yes Yes -Correct Procedure Yes Yes Yes -Procedure Performed Yes Yes Yes -Type of Procedure Debridement Debridement -Clinical Debridement Subcutaneous Subcutaneous -Post Debridement Size (cm) - Length 2.1 3.4 6.5 -Post Debridement Size (cm) - Width 3.3 1.7 2.1 -Post Debridement Size (cm) - Depth 1.3 0.7 0 -Total Square Cm 6.93 5.78 13.65 -Wound/Ulcer Outcome Not Healed Not Healed Amputation -Ulcer Cleansing Rinsed/ Rinsed/ Rinsed/ Irrigated with Irrigated with Irrigated with Saline Saline Saline -Foul Odor after Cleansing No No No -Bioengineered Tissue No No No -Expiration Date 01/17/23 -Product Lot Number [id number] -Percent Used 50 -Saline Lot Number [id number] -Topical Lidocaine (%) 4 50 -Injectable Lidocaine (%) 4 -Bleeding Controlled with Pressure Pressure NA -Treatment Response Procedure Procedure Procedure Tolerated Well Tolerated Well Tolerated Well #5 Right 2nd Toe -Time 15:33 11:05 09:57 -Correct Patient Yes Yes Yes -Correct Side, Site, Position Yes Yes Yes -Correct Procedure Yes Yes Yes -Procedure Performed Yes Yes Yes -Type of Procedure Debridement Debridement -Clinical Debridement Subcutaneous Subcutaneous -Post Debridement Size (cm) - Length 1 0.6 0 -Post Debridement Size (cm) - Width 0.5 0.5 0 -Post Debridement Size (cm) - Depth 0.1 0.2 0 -Total Square Cm 0.5 0.30 0 -Wound/Ulcer Outcome Not Healed Not Healed Healed- Epithelialized -Ulcer Cleansing Rinsed/ Rinsed/ Rinsed/ Irrigated with Irrigated with Irrigated with Saline Saline Saline -Foul Odor after Cleansing No No No -Bioengineered Tissue No No No -Topical Lidocaine (%) 4 -Bleeding Controlled with Pressure Pressure NA -Treatment Response Procedure Procedure Procedure Tolerated Well Tolerated Well Tolerated Well #2 Left 2nd Toe -Time 15:33 11:06 09:57 -Correct Patient Yes Yes Yes -Correct Side, Site, Position Yes Yes Yes -Correct Procedure Yes Yes Yes -Procedure Performed Yes Yes Yes -Type of Procedure Debridement Debridement Debridement -Clinical Debridement Subcutaneous Subcutaneous Subcutaneous -Post Debridement Size (cm) - Length 0.5 0.3 0.2 -Post Debridement Size (cm) - Width 0.8 0.4 0.2 -Post Debridement Size (cm) - Depth 0.2 0.2 0.1 -Total Square Cm 0.40 0.12 0.04 -Wound/Ulcer Outcome Not Healed Not Healed Not Healed -Ulcer Cleansing Rinsed/ Rinsed/ Rinsed/ Irrigated with Irrigated with Irrigated with Saline Saline Saline -Foul Odor after Cleansing No No No -Bioengineered Tissue No No Yes -Type of bioengineered Tissue EPIFIX -Expiration Date 01/17/23 -Product Lot Number [id number] -Percent Used 50 -Saline Lot Number [id number] -Topical Lidocaine (%) 4 5 -Bleeding Controlled with Pressure Pressure Pressure -Treatment Response Procedure Procedure Procedure Tolerated Well Tolerated Well Tolerated Well Pain Scale: 0-10 Numeric Is Patient Pain Free? Yes Yes Yes Wound debrided: 2nd toe Laterality: Left Wound Grade/Stage: grade 1 Type of Debridement: Excisional debridement Anesthesia Used: 4% Lidocaine Solution Depth: in the subcutaneous layer Percentage of wound debrided: 100 Instrument Used: #15 blade Tissue Removed: fibrous, devitalized subcutaneous, biofilm, slough Severity: Fat Layer Exposed Amount of bleeding with debridement: Mild Bleeding Controlled with: Pressure Patient tolerated procedure well Assessment/Plan Active Problems Type 2 diabetes mellitus with diabetic polyneuropathy (Chronic) Cellulitis of right foot (Chronic) Delayed wound healing (Chronic) PVD (peripheral vascular disease) (Chronic) Chronic ulcer of left foot with fat layer exposed (Chronic) Hammer toe of right foot (Chronic) Ulcer of right foot with fat layer exposed (Chronic) 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 Peter grade 1 ulcer left 2 toe. healed right 2nd toe ulcer. Hammertoes bilateral. DM with neuropathy. Delayed ulcer healing. PVD. Non compliance history Plan: I reviewed and discussed his case today. Debridement was performed as noted in the clinical panel to the left second toe. To discontinue the wound VAC. It is noted the right second toe ulcer site has healed. Verbal consent was obtained to apply advanced wound care product, epi fix today to bilateral sites. This was applied according to standard protocol and was secured in place with a wound veil and Steri-Strips. He was reassured no local signs of infection are noted. Dr. Pike evaluated him today and he will continue on ceftriaxone IV via PICC line and oral Flagyl until August 15, 2018. Serial labs will be monitored throughout this process. Patient is to keep his feet clean and dry each day and was instructed again to not soak his feet. Patient has offloading surgical shoes in the areas of the ulcers. Place weight on the heels. He is to continue to wear these at all times when ambulation is necessary was instructed to try and keep pressure off of the ulcer sites. Patient was instructed to be nonweightbearing as much as possible during this healing process. LEAS studies were completed while the patient was in the hospital and were read as possible mild small vessel disease of the right foot/toes. No additional intervention was recommended. We can reconsider repeat x-rays in the future if necessary. I recommend a diet high in protein to this patient to help optimize ulcer healing potential. Smoking cessation was discussed with this patient again today. Patient was educated on all signs and symptoms of local and systemic infection and he was instructed to go to the emergency room immediately should he notice any of these. The advanced wound care product application will be considered in the future if indicated. All questions were answered to the patient's satisfaction during his visit today. The patient will follow-up in clinic in 1 week to check on progress, but was instructed to call the office sooner if needed.
--- NOTE | 2018-07-12 11:19 | PN.PCM_ITS ---
(1) Chronic ulcer of left foot with fat layer exposed Status: Chronic Current Visit: Yes Code(s): L97.522 - Non-pressure chronic ulcer of other part of left foot with fat layer exposed (2) Delayed wound healing Status: Chronic Current Visit: Yes Code(s): T14.8XXD - Other injury of unspecified body region, subsequent encounter (3) PVD (peripheral vascular disease) Status: Chronic Current Visit: Yes Code(s): I73.9 - Peripheral vascular disease, unspecified (4) Malnutrition Status: Deleted Current Visit: Yes Code(s): E46 - Unspecified protein- calorie malnutrition (5) Hammer toe of right foot Status: Chronic Current Visit: Yes Code(s): M20.41 - Other hammer toe(s) (acquired), right foot (6) Ulcer of right foot with fat layer exposed Status: Chronic Current Visit: Yes Code(s): L97.512 - Non-pressure chronic u lcer of other part of right foot with fat layer exposed (7) Diabetic foot infection Status: Deleted Current Visit: Yes Code(s): E11.628 - Type 2 diabetes mellitus with other skin complications; L08.9 - Local infection of the skin and subcutaneous tissue, unspecified (8) Tobacco use Status: Chronic Current Visit: Yes Code(s): Z72.0 - Tobacco use (9) Type 2 diabetes mellitus with diabetic polyneuropathy Status: Chronic Current Visit: Yes Code(s): E11.42 - Type 2 diabetes mellitus with diabetic polyneuropathy (10) Cellulitis of right foot Status: Chronic Current Visit: Yes Code(s): L03.115 - Cellulitis of right lower limb Type of Wound Date of Service: 07/12/18 Chief Complaint: Ulcers of right and left foot History of Wound: This 57-year-old diabetic male follows up for ulcer to the right foot where he had a previous resection of the fifth ray secondary to an acute wet gangrene infection. The patient also has ulcers to the distal aspect of bilateral distal second toes. He is currently on a course of antibiotics under the management of infectious disease and continues to have a wound VAC applied to the open amputation site. He saw the infectious disease physician this morning as well. He denies current fever, chill, nausea, vomiting. He denies pain today. Progress of Wound: Improving - Physical Exam Vital Signs Temp Pulse Resp BP 97.5 F L 95 16 146/95 H 07/12/18 09:16 07/12/18 09:16 07/12/18 09:16 07/12/18 09:16 General: Alert, Oriented x3, Cooperative Extremities: No cyanosis, Capillary Refill Less than 3 Seconds, No Calf Tenderness - Negative Ida and Maldonado sign, Diminished Peripheral Pulses, Edema - Decreased right lower extremity, - - Resection of fifth ray right foot. Dorsal contraction of lesser digits bilateral. Skin: Ulcer/ Wound - No purulence, erythema, streaking, odor, or infection, maceration, or exposed bone or joint noted bilateral lower extremities. There is full epithelialization of the right second toe and the site has healed. There is subcutaneous tissue still exposed to the left second toe and also 2 very small central to distal aspect of the previous surgical site. Otherwise sutures remain intact and the skin edges are reapproximated without necrosis. The open granulation tissue that is exposed measures approximately 5 mm in length with a width of 4 mm in depth of 1 mm Wound Measurements and Assessment WC - Nurse 1 - General Ulcer Measurement Start: 06/20/18 14:44 Freq: Status: Active Protocol: Activity Type Activity Date Activity User E-Sign Co-Sign Detail Recorded Client Recorded Date Recorded By Document 07/12/18 09:16 [id number] 07/12/18 09:32 07/12/18 09:16 Wound Center Nurse 1 [Ulcer Assessment] #8 Right 5th Toe AMP SITE -Combined with other wound No -Current Size (cm) - Length 6.5 -Current Size (cm) - Width 0.1 -Current Size (cm) - Depth 0.1 -Total Square Cm 0.65 -Photo Taken Yes -Epithelialization None Present -Tunneling No -Undermining/Tunneling No -Circular Undermining No -Temperature (Belle-wound Skin No Abnormality Appearance) (Pt Warm) -Tenderness on Palpation (Belle-wound Yes Skin Appearance) -Ulcer Cleansing soap #5 Right 2nd Toe -Combined with other wound No -Current Size (cm) - Length 0.1 -Current Size (cm) - Width 0.1 -Current Size (cm) - Depth 0.1 -Total Square Cm 0.01 -Date of Last Picture (Recall this 07/12/18 field) -Photo Taken Yes -Epithelialization None Present -Tunneling No -Undermining/Tunneling No -Circular Undermining No -Necrosis Amt Large (67-100%) -Necrotic Tissue Type Eschar -Temperature (Belle-wound Skin No Abnormality Appearance) (Pt Warm) -Tenderness on Palpation (Belle-wound No Skin Appearance) -Ulcer Cleansing Not Cleansed -Foul Odor after Cleansing No #2 Left 2nd Toe -Combined with other wound No -Current Size (cm) - Length 0.1 -Current Size (cm) - Width 0.1 -Current Size (cm) - Depth 0.1 -Total Square Cm 0.01 -Date of Last Picture (Recall this 07/12/18 field) -Photo Taken Yes -Epithelialization None Present -Tunneling No -Undermining/Tunneling No -Circular Undermining No -Temperature (Belle-wound Skin No Abnormality Appearance) (Pt Warm) -Ulcer Cleansing soap -Foul Odor after Cleansing Yes [Edema Assessment] -Lower Limb Edema Present NA WC - Nurse 2 - General Ulcer CM Notes Start: 06/20/18 14:44 Freq: Status: Active Protocol: Activity Type Activity Date Activity User E-Sign Co-Sign Detail Recorded Client Recorded Date Recorded By Document 07/12/18 09:56 [id number] 07/12/18 10:02 07/12/18 09:56 Wound Center Nurse 2 [Procedure/Treatment] #8 Right 5th Toe AMP SITE -Time 09:57 -Correct Patient Yes -Correct Side, Site, Position Yes -Correct Procedure Yes -Procedure Performed Yes -Post Debridement Size (cm) - Length 6.5 -Post Debridement Size (cm) - Width 2.1 -Post Debridement Size (cm) - Depth 0 -Total Square Cm 13.65 -Wound/Ulcer Outcome Amputation -Ulcer Cleansing Rinsed/ Irrigated with Saline -Foul Odor after Cleansing No -Bioengineered Tissue No -Expiration Date 01/17/23 -Product Lot Number [id number] -Percent Used 50 -Saline Lot Number [id number] -Topical Lidocaine (%) 50 -Injectable Lidocaine (%) 4 -Bleeding Controlled with NA -Treatment Response Procedure Tolerated Well #5 Right 2nd Toe -Time 09:57 -Correct Patient Yes -Correct Side, Site, Position Yes -Correct Procedure Yes -Procedure Performed Yes -Post Debridement Size (cm) - Length 0 -Post Debridement Size (cm) - Width 0 -Post Debridement Size (cm) - Depth 0 -Total Square Cm 0 -Wound/Ulcer Outcome Healed- Epithelialized -Ulcer Cleansing Rinsed/ Irrigated with Saline -Foul Odor after Cleansing No -Bioengineered Tissue No -Bleeding Controlled with NA -Treatment Response Procedure Tolerated Well #2 Left 2nd Toe -Time 09:57 -Correct Patient Yes -Correct Side, Site, Position Yes -Correct Procedure Yes -Procedure Performed Yes -Type of Procedure Debridement -Clinical Debridement Subcutaneous -Post Debridement Size (cm) - Length 0.2 -Post Debridement Size (cm) - Width 0.2 -Post Debridement Size (cm) - Depth 0.1 -Total Square Cm 0.04 -Wound/Ulcer Outcome Not Healed -Ulcer Cleansing Rinsed/ Irrigated with Saline -Foul Odor after Cleansing No -Bioengineered Tissue Yes -Type of bioengineered Tissue EPIFIX -Expiration Date 01/17/23 -Product Lot Number [id number] -Percent Used 50 -Saline Lot Number [id number] -Topical Lidocaine (%) 5 -Bleeding Controlled with Pressure -Treatment Response Procedure Tolerated Well [See Physician Procedure note for Specifics] Pain Scale: 0-10 Numeric [Pain] -Is Patient Pain Free? Yes Musculoskeletal: No Tenderness to Palpation of Joints or Extremities, Muscle Wasting Neurological: - - Lack of epicritic sensation light touch Psych/Mental Status: Normal Affect, Appropriate Debridement Note Post-Debridement Measurements/Treatment WC - Nurse 2 - General Ulcer CM Notes Start: 06/20/18 14:44 Freq: Status: Active Protocol: Activity Type Activity Date Activity User E-Sign Co-Sign Detail Recorded Client Recorded Date Recorded By Document 06/20/18 15:33 [id number] 06/20/18 15:34 Document 06/28/18 11:04 [id number] 06/28/18 11:07 TM Document 07/12/18 09:56 TM [id number] 07/12/18 10:02 TM 06/20/18 06/28/18 07/12/18 15:33 11:04 09:56 Wound Center Nurse 2 #8 Right 5th Toe AMP SITE -Time 15:33 11:05 09:57 -Correct Patient Yes Yes Yes -Correct Side, Site, Position Yes Yes Yes -Correct Procedure Yes Yes Yes -Procedure Performed Yes Yes Yes -Type of Procedure Debridement Debridement -Clinical Debridement Subcutaneous Subcutaneous -Post Debridement Size (cm) - Length 2.1 3.4 6.5 -Post Debridement Size (cm) - Width 3.3 1.7 2.1 -Post Debridement Size (cm) - Depth 1.3 0.7 0 -Total Square Cm 6.93 5.78 13.65 -Wound/Ulcer Outcome Not Healed Not Healed Amputation -Ulcer Cleansing Rinsed/ Rinsed/ Rinsed/ Irrigated with Irrigated with Irrigated with Saline Saline Saline -Foul Odor after Cleansing No No No -Bioengineered Tissue No No No -Expiration Date 01/17/23 -Product Lot Number [id number] -Percent Used 50 -Saline Lot Number [id number] -Topical Lidocaine (%) 4 50 -Injectable Lidocaine (%) 4 -Bleeding Controlled with Pressure Pressure NA -Treatment Response Procedure Procedure Procedure Tolerated Well Tolerated Well Tolerated Well #5 Right 2nd Toe -Time 15:33 11:05 09:57 -Correct Patient Yes Yes Yes -Correct Side, Site, Position Yes Yes Yes -Correct Procedure Yes Yes Yes -Procedure Performed Yes Yes Yes -Type of Procedure Debridement Debridement -Clinical Debridement Subcutaneous Subcutaneous -Post Debridement Size (cm) - Length 1 0.6 0 -Post Debridement Size (cm) - Width 0.5 0.5 0 -Post Debridement Size (cm) - Depth 0.1 0.2 0 -Total Square Cm 0.5 0.30 0 -Wound/Ulcer Outcome Not Healed Not Healed Healed- Epithelialized -Ulcer Cleansing Rinsed/ Rinsed/ Rinsed/ Irrigated with Irrigated with Irrigated with Saline Saline Saline -Foul Odor after Cleansing No No No -Bioengineered Tissue No No No -Topical Lidocaine (%) 4 -Bleeding Controlled with Pressure Pressure NA -Treatment Response Procedure Procedure Procedure Tolerated Well Tolerated Well Tolerated Well #2 Left 2nd Toe -Time 15:33 11:06 09:57 -Correct Patient Yes Yes Yes -Correct Side, Site, Position Yes Yes Yes -Correct Procedure Yes Yes Yes -Procedure Performed Yes Yes Yes -Type of Procedure Debridement Debridement Debridement -Clinical Debridement Subcutaneous Subcutaneous Subcutaneous -Post Debridement Size (cm) - Length 0.5 0.3 0.2 -Post Debridement Size (cm) - Width 0.8 0.4 0.2 -Post Debridement Size (cm) - Depth 0.2 0.2 0.1 -Total Square Cm 0.40 0.12 0.04 -Wound/Ulcer Outcome Not Healed Not Healed Not Healed -Ulcer Cleansing Rinsed/ Rinsed/ Rinsed/ Irrigated with Irrigated with Irrigated with Saline Saline Saline -Foul Odor after Cleansing No No No -Bioengineered Tissue No No Yes -Type of bioengineered Tissue EPIFIX -Expiration Date 01/17/23 -Product Lot Number [id number] -Percent Used 50 -Saline Lot Number [id number] -Topical Lidocaine (%) 4 5 -Bleeding Controlled with Pressure Pressure Pressure -Treatment Response Procedure Procedure Procedure Tolerated Well Tolerated Well Tolerated Well Pain Scale: 0-10 Numeric Is Patient Pain Free? Yes Yes Yes Wound debrided: 2nd toe Laterality: Left Wound Grade/Stage: grade 1 Type of Debridement: Excisional debridement Anesthesia Used: 4% Lidocaine Solution Depth: in the subcutaneous layer Percentage of wound debrided: 100 Instrument Used: #15 blade Tissue Removed: fibrous, devitalized subcutaneous, biofilm, slough Severity: Fat Layer Exposed Amount of bleeding with debridement: Mild Bleeding Controlled with: Pressure Patient tolerated procedure well Assessment/Plan Active Problems Type 2 diabetes mellitus with diabetic polyneuropathy (Chronic) Cellulitis of right foot (Chronic) Delayed wound healing (Chronic) PVD (peripheral vascular disease) (Chronic) Chronic ulcer of left foot with fat layer exposed (Chronic) Hammer toe of right foot (Chronic) Ulcer of right foot with fat layer exposed (Chronic) 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 Peter grade 1 ulcer left 2 toe. healed right 2nd toe ulcer. Hammertoes bilateral. DM with neuropathy. Delayed ulcer healing. PVD. Non compliance history Plan: I reviewed and discussed his case today. Debridement was performed as noted in the clinical panel to the left second toe. To discontinue the wound VAC. It is noted the right second toe ulcer site has healed. Verbal consent was obtained to apply advanced wound care product, epi fix today to bilateral sites. This was applied according to standard protocol and was secured in place with a wound veil and Steri-Strips. He was reassured no local signs of infection are noted. Dr. Pike evaluated him today and he will continue on ceftriaxone IV via PICC line and oral Flagyl until August 15, 2018. Serial labs will be monitored throughout this process. Patient is to keep his feet clean and dry each day and was instructed again to not soak his feet. Patient has offloading surgical shoes in the areas of the ulcers. Place weight on the heels. He is to continue to wear these at all times when ambulation is necessary was instructed to try and keep pressure off of the ulcer sites. Pat ient was instructed to be nonweightbearing as much as possible during this healing process. LEAS studies were completed while the patient was in the hospital and were read as possible mild small vessel disease of the right foot/toes. No additional intervention was recommended. We can reconsider repeat x-rays in the future if necessary. I recommend a diet high in protein to this patient to help optimize ulcer healing potential. Smoking cessation was discussed with this patient again today. Patient was educated on all signs and symptoms of local and systemic infection and he was instructed to go to the emergency room immediately should he notice any of these. The advanced wound care product application will be considered in the future if indicated. All questions were answered to the patient's satisfaction during his visit today. The patient will follow-up in clinic in 1 week to check on progress, but was instructed to call the office sooner if needed.
[2018-07-19 10:48] VITALS: BP 151/89; PULSE 91; RESP 16; TEMP 36.2
--- NOTE | 2018-07-19 13:08 | PCM.WC.PN ---
(1) Chronic ulcer of left foot with fat layer exposed Status: Resolved Code(s): L97.522 - Non-pressure chronic ulcer of other part of left foot with fat layer exposed (2) Delayed wound healing Status: Chronic Code(s): T14.8XXD - Other injury of unspecified body region, subsequent encounter (3) PVD (peripheral vascular disease) Status: Chronic Code(s): I73.9 - Peripheral vascular disease, unspecified (4) Malnutrition Status: Deleted Code(s): E46 - Unspecified protein-calorie malnutrition (5) Hammer toe of right foot Status: Chronic Code(s): M20.41 - Other hammer toe(s) (acquired), right foot (6) Ulcer of right foot with fat layer exposed Status: Chronic Code(s): L97.512 - Non-pressure chronic ulcer of other part of right foot with fat layer exposed (7) Diabetic foot infection Status: Deleted Code(s): E11.628 - Type 2 diabetes mellitus with other skin complications; L08.9 - Local infection of the skin and subcutaneous tissue, unspecified (8) Tobacco use Status: Chronic Code(s): Z72.0 - Tobacco use (9) Type 2 diabetes mellitus with diabetic polyneuropathy Status: Chronic Code(s): E11.42 - Type 2 diabetes mellitus with diabetic polyneuropathy (10) Cellulitis of right foot Status: Chronic Code(s): L03.115 - Cellulitis of right lower limb Type of Wound Date of Service: 07/19/18 Chief Complaint: Ulcers of right and left foot History of Wound: This 57-year-old diabetic male follows up for ulcer to the right foot where he had a previous resection of the fifth ray secondary to an acute wet gangrene infection. The patient also has ulcers to the distal aspect of bilateral distal second toes. He is currently on a course of antibiotics under the management of infectious disease and continues to have a wound VAC applied to the open amputation site. He saw the infectious disease physician this morning as well. He denies current fever, chill, nausea, vomiting. He denies pain today. Progress of Wound: Stable surgical site. Healed second toe ulcers bilateral - Physical Exam Vital Signs Temp Pulse Resp BP 97.1 F L 91 16 151/89 H 07/19/18 10:48 07/19/18 10:48 07/19/18 10:48 07/19/18 10:48 General: Alert, Oriented x3, Cooperative Extremities: No cyanosis, Capillary Refill Less than 3 Seconds, No Calf Tenderness - Negative Ida and Maldonado sign bilateral, Diminished Peripheral Pulses, Edema - Mild bilateral lower extremities, - - Right fifth ray resection Skin: Ulcer/ Wound - No purulence, no erythema, streaking, odor, no infection. The peripheral skin is hairless and atrophic Wound Measurements and Assessment WC - Nurse 1 - General Ulcer Measurement Start: 06/20/18 14:44 Freq: Status: Active Protocol: Activity Type Activity Date Activity User E-Sign Co-Sign Detail Recorded Client Recorded Date Recorded By Document 07/19/18 10:48 ALEENA [id number] 07/19/18 10:50 ALEENA 07/19/18 10:48 Wound Center Nurse 1 [Ulcer Assessment] #8 Right 5th Toe AMP SITE -Combined with other wound No -Current Size (cm) - Length 0.1 -Current Size (cm) - Width 0.1 -Current Size (cm) - Depth 0.1 -Total Square Cm 0.01 -Photo Taken No -Epithelialization Medium 34-66% -Tunneling No -Undermining/Tunneling No -Circular Undermining No -Exudate Amt Small (1-33%) -Exudate Type Serosanguineous -Wound Margin Flat & Intact -Granulation Amt None Present (0 %) -Slough/Fibrin Yes -Necrosis Amt Large (67-100%) -Necrotic Tissue Type Adherent Slough -Structure Exposed N/A -Texture (Belle-wound Skin Appearance) Assessed Callus -Moisture (Belle-wound Skin Appearance Assessed ) Dry/Scaly -Color (Belle-wound Skin Appearance) Assessed -Temperature (Belle-wound Skin No Abnormality Appearance) (Pt Warm) -Tenderness on Palpation (Belle-wound No Skin Appearance) -Ulcer Cleansing Wound Cleanser -Foul Odor after Cleansing No #2 Left 2nd Toe -Combined with other wound No -Current Size (cm) - Length 0.4 -Current Size (cm) - Width 0.4 -Current Size (cm) - Depth 0.1 -Total Square Cm 0.16 -Photo Taken No -Epithelialization Small 1-33% -Tunneling No -Undermining/Tunneling No -Circular Undermining No -Exudate Amt None Present (0 %) -Wound Margin Flat & Intact -Granulation Amt None Present (0 %) -Slough/Fibrin Yes -Necrosis Amt Large (67-100%) -Necrotic Tissue Type Adherent Slough -Structure Exposed N/A -Texture (Belle-wound Skin Appearance) Assessed Callus -Moisture (Belle-wound Skin Appearance Assessed ) Dry/Scaly -Color (Belle-wound Skin Appearance) Assessed -Temperature (Belle-wound Skin No Abnormality Appearance) (Pt Warm) -Tenderness on Palpation (Belle-wound No Skin Appearance) -Ulcer Cleansing Wound Cleanser -Foul Odor after Cleansing No -Anesthetic Used 5% Lidocaine Gel [Edema Assessment] -Lower Limb Edema Present No WC - Nurse 2 - General Ulcer CM Notes Start: 06/20/18 14:44 Freq: Status: Active Protocol: Activity Type Activity Date Activity User E-Sign Co-Sign Detail Recorded Client Recorded Date Recorded By Document 07/19/18 11:03 ALEENA [id number] 07/19/18 11:12 ALEENA 07/19/18 11:03 Wound Center Nurse 2 [Procedure/Treatment] #8 Right 5th Toe AMP SITE -Correct Patient No -Correct Side, Site, Position No -Correct Procedure No -Procedure Performed No -Post Debridement Size (cm) - Length 0.1 -Post Debridement Size (cm) - Width 0.1 -Post Debridement Size (cm) - Depth 0.1 -Total Square Cm 0.01 -Bleeding Controlled with NA -Treatment Response Procedure Tolerated Well #2 Left 2nd Toe -Correct Patient No -Correct Side, Site, Position No -Correct Procedure No -Procedure Performed No -Post Debridement Size (cm) - Length 0 -Post Debridement Size (cm) - Width 0 -Post Debridement Size (cm) - Depth 0 -Total Square Cm 0 -Wound/Ulcer Outcome Healed- Epithelialized -Bleeding Controlled with NA [See Physician Procedure note for Specifics] Pain Scale: 0-10 Numeric [Pain] -Is Patient Pain Free? Yes Musculoskeletal: No Tenderness to Palpation of Joints or Extremities, Muscle Wasting, - - No crepitus on palpation bilateral. Dorsal contraction of lesser toes noted bilateral Neurological: - - Lack of normal epicritic sensation noted to light touch bilateral consistent with neuropathy Psych/Mental Status: Normal Affect, Appropriate Debridement Note Post-Debridement Measurements/Treatment WC - Nurse 2 - General Ulcer CM Notes Start: 06/20/18 14:44 Freq: Status: Active Protocol: Activity Type Activity Date Activity User E-Sign Co-Sign Detail Recorded Client Recorded Date Recorded By Document 06/20/18 15:33 [id number] 06/20/18 15:34 JF Document 06/28/18 11:04 [id number] 06/28/18 11:07 TM Document 07/12/18 09:56 [id number] 07/12/18 10:02 TM Document 07/19/18 11:03 [id number] 07/19/18 11:12 06/20/18 06/28/18 07/12/18 15:33 11:04 09:56 Wound Center Nurse 2 #8 Right 5th Toe AMP SITE -Time 15:33 11:05 09:57 -Correct Patient Yes Yes Yes -Correct Side, Site, Position Yes Yes Yes -Correct Procedure Yes Yes Yes -Procedure Performed Yes Yes Yes -Type of Procedure Debridement Debridement -Clinical Debridement Subcutaneous Subcutaneous -Post Debridement Size (cm) - Length 2.1 3.4 6.5 -Post Debridement Size (cm) - Width 3.3 1.7 2.1 -Post Debridement Size (cm) - Depth 1.3 0.7 0 -Total Square Cm 6.93 5.78 13.65 -Wound/Ulcer Outcome Not Healed Not Healed Amputation -Ulcer Cleansing Rinsed/ Rinsed/ Rinsed/ Irrigated with Irrigated with Irrigated with Saline Saline Saline -Foul Odor after Cleansing No No No -Bioengineered Tissue No No No -Expiration Date 01/17/23 -Product Lot Number [id number] -Percent Used 50 -Saline Lot Number [id number] -Topical Lidocaine (%) 4 50 -Injectable Lidocaine (%) 4 -Bleeding Controlled with Pressure Pressure NA -Treatment Response Procedure Procedure Procedure Tolerated Well Tolerated Well Tolerated Well #5 Right 2nd Toe -Time 15:33 11:05 09:57 -Correct Patient Yes Yes Yes -Correct Side, Site, Position Yes Yes Yes -Correct Procedure Yes Yes Yes -Procedure Performed Yes Yes Yes -Type of Procedure Debridement Debridement -Clinical Debridement Subcutaneous Subcutaneous -Post Debridement Size (cm) - Length 1 0.6 0 -Post Debridement Size (cm) - Width 0.5 0.5 0 -Post Debridement Size (cm) - Depth 0.1 0.2 0 -Total Square Cm 0.5 0.30 0 -Wound/Ulcer Outcome Not Healed Not Healed Healed- Epithelialized -Ulcer Cleansing Rinsed/ Rinsed/ Rinsed/ Irrigated with Irrigated with Irrigated with Saline Saline Saline -Foul Odor after Cleansing No No No -Bioengineered Tissue No No No -Topical Lidocaine (%) 4 -Bleeding Controlled with Pressure Pressure NA -Treatment Response Procedure Procedure Procedure Tolerated Well Tolerated Well Tolerated Well #2 Left 2nd Toe -Time 15:33 11:06 09:57 -Correct Patient Yes Yes Yes -Correct Side, Site, Position Yes Yes Yes -Correct Procedure Yes Yes Yes -Procedure Performed Yes Yes Yes -Type of Procedure Debridement Debridement Debridement -Clinical Debridement Subcutaneous Subcutaneous Subcutaneous -Post Debridement Size (cm) - Length 0.5 0.3 0.2 -Post Debridement Size (cm) - Width 0.8 0.4 0.2 -Post Debridement Size (cm) - Depth 0.2 0.2 0.1 -Total Square Cm 0.40 0.12 0.04 -Wound/Ulcer Outcome Not Healed Not Healed Not Healed -Ulcer Cleansing Rinsed/ Rinsed/ Rinsed/ Irrigated with Irrigated with Irrigated with Saline Saline Saline -Foul Odor after Cleansing No No No -Bioengineered Tissue No No Yes -Type of bioengineered Tissue EPIFIX -Expiration Date 01/17/23 -Product Lot Number [id number] -Percent Used 50 -Saline Lot Number [id number] -Topical Lidocaine (%) 4 5 -Bleeding Controlled with Pressure Pressure Pressure -Treatment Response Procedure Procedure Procedure Tolerated Well Tolerated Well Tolerated Well Pain Scale: 0-10 Numeric Is Patient Pain Free? Yes Yes Yes 07/19/18 11:03 Wound Center Nurse 2 #8 Right 5th Toe AMP SITE -Time -Correct Patient No -Correct Side, Site, Position No -Correct Procedure No -Procedure Performed No -Type of Procedure -Clinical Debridement -Post Debridement Size (cm) - Length 0.1 -Post Debridement Size (cm) - Width 0.1 -Post Debridement Size (cm) - Depth 0.1 -Total Square Cm 0.01 -Wound/Ulcer Outcome -Ulcer Cleansing -Foul Odor after Cleansing -Bioengineered Tissue -Expiration Date -Product Lot Number -Percent Used -Saline Lot Number -Topical Lidocaine (%) -Injectable Lidocaine (%) -Bleeding Controlled with NA -Treatment Response Procedure Tolerated Well #5 Right 2nd Toe -Time -Correct Patient -Correct Side, Site, Position -Correct Procedure -Procedure Performed -Type of Procedure -Clinical Debridement -Post Debridement Size (cm) - Length -Post Debridement Size (cm) - Width -Post Debridement Size (cm) - Depth -Total Square Cm -Wound/Ulcer Outcome -Ulcer Cleansing -Foul Odor after Cleansing -Bioengineered Tissue -Topical Lidocaine (%) -Bleeding Controlled with -Treatment Response #2 Left 2nd Toe -Time -Correct Patient No -Correct Side, Site, Position No -Correct Procedure No -Procedure Performed No -Type of Procedure -Clinical Debridement -Post Debridement Size (cm) - Length 0 -Post Debridement Size (cm) - Width 0 -Post Debridement Size (cm) - Depth 0 -Total Square Cm 0 -Wound/Ulcer Outcome Healed- Epithelialized -Ulcer Cleansing -Foul Odor after Cleansing -Bioengineered Tissue -Type of bioengineered Tissue -Expiration Date -Product Lot Number -Percent Used -Saline Lot Number -Topical Lidocaine (%) -Bleeding Controlled with NA -Treatment Response Pain Scale: 0-10 Numeric Is Patient Pain Free? 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 Peter grade 1 ulcer left 2 toe --healed today. Hammertoes bilateral. DM with neuropathy. PVD. Non compliance history Plan: I reviewed and discussed his case today. Excisional debridement was not performed because the ulcer sites have healed. He was reassured no local signs of infection are noted. The proximal surgical site is coapting well in the distal aspect has not coapted yet. He was reassured no local signs of infection are noted. Dr. Pike with infectious disease has recommended a course of antibiotics. It is noted his clearance microbiology and pathology fragments were negative for bacterial growth and osteomyelitis of the right foot. he will continue on ceftriaxone IV via PICC line and oral Flagyl until August 15, 2018. It is noted he does have some loose stools however not confirmed diarrhea. He was advised to follow-up with infectious disease in the form of this. Early discontinuation of antibiotics may be considered due to his lack of findings with a clearance fragment and clinical improvement; I will defer to infectious disease recommendations. Serial labs are monitored and is noted his sedimentation rate is under 25 and this has decreased. Patient is to keep his feet clean and dry each day and was instructed again to not soak his feet. Patient has offloading surgical shoes in the areas of the ulcers. Place weight on the heels. He is to continue to wear these at all times when ambulation is necessary was instructed to try and keep pressure off of the ulcer sites. Patient was instructed to be nonweightbearing as much as possible during this healing process. LEAS studies were completed while the patient was in the hospital and were read as possible mild small vessel disease of the right foot/toes. No additional intervention was recommended. We can reconsider repeat x-rays in the future if necessary. I recommend a diet high in protein to this patient to help optimize ulcer healing potential. Smoking cessation was discussed with this patient again today. All questions were answered to the patient's satisfaction during his visit today. The patient will follow-up in clinic in 1 week to check on progress, but was instructed to call the office sooner if needed.
== END 2018-07-19 23:59 ==
LOC: WC 10:30
PROVIDERS: Family Provider Family Medicine; PCP Family Medicine; Visit Provider Podiatrist
DX: E11.621 Type 2 diabetes mellitus with foot ulcer (principal); M20.41 Other hammer toe(s) (acquired), right foot; Z72.0 Tobacco use; L97.512 Non-pressure chronic ulcer of other part of right foot with fat layer exposed; L97.412 Non-pressure chronic ulcer of right heel and midfoot with fat layer exposed; E11.40 Type 2 diabetes mellitus with diabetic neuropathy, unspecified; E11.52 Type 2 diabetes mellitus with diabetic peripheral angiopathy with gangrene; I96 Gangrene, not elsewhere classified
CPT/HCPCS: 11042; 15275; 97605; 99213; Q4131; G0463

== ENCOUNTER 2018-07-20 09:51 | Outpatient (RCR) | payer BC, SELFPAY ==
[2018-07-20 01:22] VITALS: BP 151/89; PULSE 91; RESP 16; TEMP 36.2
[2018-07-26 11:07] VITALS: BP 152/78; PULSE 84; RESP 18; TEMP 36.7
--- NOTE | 2018-07-26 11:55 | PCM.WC.PN ---
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 new left leg ulcer History of Wound: This 57-year-old diabetic male follows up for ulcer to the right foot where he had a previous resection of the fifth ray secondary to an acute wet gangrene infection. His toe ulcers have healed as of last week. He is currently on a course of antibiotics under the management of infectious disease. He did have some diarrhea and reviewed this with infectious disease and states this is under control at this time. He denies current fever, chill, nausea, vomiting, calf pain, heat from the legs, shortness of breath or chest pain. He denies pain today. He also has a new ulcer to the left leg that began approximately 4 days ago. He denies any known trauma. He reports both legs and feet are more swollen and he only wore his compression dressing one time last week. He refuses to follow the antibiotic heparin administration protocol has many questions about this today. Progress of Wound: Improving - Physical Exam Vital Signs Temp Pulse Resp BP 98.0 F 84 18 152/78 H 07/26/18 11:07 07/26/18 11:07 07/26/18 11:07 07/26/18 11:07 General: Alert, Oriented x3, Cooperative Extremities: No cyanosis, Capillary Refill Less than 3 Seconds, No Calf Tenderness - negative ind[place] and mtz signs bilateral, Edema - bilateral lower extremities, Peripheral Pulses Normal Skin: Ulcer/ Wound - no purulence, no erythema, no odor, no eschar, no acute signs of infection noted bilateral lower extremities. incision to lateral right foot measures about 6.5 cm and is continuing to coapt. no drainage is noted. the new left anterior leg ulcer has a granular base. the peripheral skin is hairless and atrophic Wound Measurements and Assessment WC - Nurse 1 - General Ulcer Measurement Start: 07/26/18 11:07 Freq: Status: Active Protocol: Activity Type Activity Date Activity User E-Sign Co-Sign Detail Recorded Client Recorded Date Recorded By Document 07/26/18 11:07 [id number] 07/26/18 11:14 07/26/18 11:07 Wound Center Nurse 1 [Ulcer Assessment] #8 Right 5th Toe AMP SITE -Combined with other wound No -Current Size (cm) - Length 0.1 -Current Size (cm) - Width 0.1 -Current Size (cm) - Depth 0.1 -Total Square Cm 0.01 -Photo Taken No -Epithelialization Large 67-100% -Tunneling No -Undermining/Tunneling No -Circular Undermining No -Exudate Amt None Present (0 %) -Wound Margin Flat & Intact -Granulation Amt None Present (0 %) -Slough/Fibrin Yes -Necrosis Amt Small (1-33%) -Necrotic Tissue Type Adherent Slough -Structure Exposed N/A -Texture (Belle-wound Skin Appearance) Assessed Localized Edema -Moisture (Belle-wound Skin Appearance Assessed ) Dry/Scaly -Color (Belle-wound Skin Appearance) Assessed -Temperature (Belle-wound Skin No Abnormality Appearance) (Pt Warm) -Tenderness on Palpation (Belle-wound No Skin Appearance) -Ulcer Cleansing Wound Cleanser -Foul Odor after Cleansing No [Edema Assessment] -Lower Limb Edema Present Yes -Right Calf (cm) 42.8 -Right Ankle (cm) 26.0 - Nurse 2 - General Ulcer CM Notes Start: 07/26/18 11:07 Freq: Status: Active Protocol: Activity Type Activity Date Activity User E-Sign Co-Sign Detail Recorded Client Recorded Date Recorded By Document 07/26/18 11:23 [id number] 07/26/18 11:39 07/26/18 11:23 Wound Center Nurse 2 [Procedure/Treatment] #9 left haro ulcer -Time 11:39 -Correct Patient Yes -Correct Side, Site, Position Yes -Correct Procedure Yes -Procedure Performed Yes -Post Debridement Size (cm) - Length 1.0 -Post Debridement Size (cm) - Width 0.5 -Post Debridement Size (cm) - Depth 0.1 -Total Square Cm 0.50 -Wound/Ulcer Outcome Not Healed -Ulcer Cleansing Rinsed/ Irrigated with Saline -Foul Odor after Cleansing No -Bioengineered Tissue No -Bleeding Controlled with NA -Treatment Response Procedure Tolerated Well #8 Right 5th Toe AMP SITE -Time 11:23 -Correct Patient Yes -Correct Side, Site, Position Yes -Correct Procedure Yes -Procedure Performed Yes -Post Debridement Size (cm) - Length 6.5 -Post Debridement Size (cm) - Width 0 -Post Debridement Size (cm) - Depth 0 -Total Square Cm 0 -Wound/Ulcer Outcome Not Healed -Ulcer Cleansing Rinsed/ Irrigated with Saline -Foul Odor after Cleansing No -Bioengineered Tissue No -Bleeding Controlled with Pressure -Treatment Response Procedure Tolerated Well [See Physician Procedure note for Specifics] Pain Scale: 0-10 Numeric [Pain] -Is Patient Pain Free? Yes Musculoskeletal: No Tenderness to Palpation of Joints or Extremities, Muscle Wasting, - - fifth ray resection right Neurological: - - lack of epicritic sensation via light touch noted Psych/Mental Status: Normal Affect, Appropriate Debridement Note Post-Debridement Measurements/Treatment WC - Nurse 2 - General Ulcer CM Notes Start: 07/26/18 11:07 Freq: Status: Active Protocol: Activity Type Activity Date Activity User E-Sign Co-Sign Detail Recorded Client Recorded Date Recorded By Document 07/26/18 11:23 [id number] 18 11:39 07/26/18 11:23 Wound Center Nurse 2 #9 left haro ulcer -Time 11:39 -Correct Patient Yes -Correct Side, Site, Position Yes -Correct Procedure Yes -Procedure Performed Yes -Post Debridement Size (cm) - Length 1.0 -Post Debridement Size (cm) - Width 0.5 -Post Debridement Size (cm) - Depth 0.1 -Total Square Cm 0.50 -Wound/Ulcer Outcome Not Healed -Ulcer Cleansing Rinsed/ Irrigated with Saline -Foul Odor after Cleansing No -Bioengineered Tissue No -Bleeding Controlled with NA -Treatment Response Procedure Tolerated Well #8 Right 5th Toe AMP SITE -Time 11:23 -Correct Patient Yes -Correct Side, Site, Position Yes -Correct Procedure Yes -Procedure Performed Yes -Post Debridement Size (cm) - Length 6.5 -Post Debridement Size (cm) - Width 0 -Post Debridement Size (cm) - Depth 0 -Total Square Cm 0 -Wound/Ulcer Outcome Not Healed -Ulcer Cleansing Rinsed/ Irrigated with Saline -Foul Odor after Cleansing No -Bioengineered Tissue No -Bleeding Controlled with Pressure -Treatment Response Procedure Tolerated Well Pain Scale: 0-10 Numeric Is Patient Pain Free? 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 new left leg ulcer. Hammertoes bilateral. DM with neuropathy. Delayed ulcer healing. PVD. Non compliance history Plan: I reviewed and discussed his case today. Debridement was not performed today. To discontinue the wound VAC. Steri strips were applied to right foot surgical site to further reduce tension in this healing site. Serial labs will be monitored throughout this process. Patient is to keep his feet clean and dry each day and was instructed again to not soak his feet. Patient has offloading surgical shoes in the areas of the ulcers. Place weight on the heels. He is to continue to wear these at all times when ambulation is necessary was instructed to try and keep pressure off of the ulcer sites. Patient was instructed to be nonweightbearing as much as possible during this healing process. LEAS studies were completed while the patient was in the hospital and were read as possible mild small vessel disease of the right foot/toes. No additional intervention was recommended. We can reconsider repeat x-rays in the future if necessary. I recommend a diet high in protein to this patient to help optimize ulcer healing potential. Smoking cessation was discussed with this patient again today. Patient was educated on all signs and symptoms of local and systemic infection and he was instructed to go to the emergency room immediately should he notice any of these. To improve compliance with compression therapy; his increased swelling is noted. He reviewed his recent diarrhea episodes with Dr. Pike who is managing his antibiotic regimen. I advised him to follow the recommended IV antibitoic and any associated heparin administration orders and to avoid altering the administration on his own. He is concerned the heparin will cause cancer and I discussed this is not likely with him. All questions were answered to the patient's satisfaction during his visit today. The patient will follow-up in clinic in 1 week to check on progress, but was instructed to call the office sooner if needed.
[2018-08-02 10:37] VITALS: BP 162/92; PULSE 89; RESP 20; TEMP 37.1
--- NOTE | 2018-08-02 12:31 | PN.PCM_ITS ---
(1) Ulcer of left lower extremity with fat layer exposed Status: Resolved Code(s): L97.922 - Non-pressure chronic ulcer of unspecified part of left lower leg with fat layer exposed (2) Osteomyelitis Status: Resolved Qualifiers: Code(s): M86.9 - Osteomyelitis, unspecified (3) Type 2 diabetes mellitus with diabetic polyneuropathy Status: Chronic Qualifiers: Diabetes mellitus usp insulin use: with intermodal dispatcher use Qualified Code(s): E11.42 - Type 2 diabetes mellitus with diabetic polyneuropathy; Z79.4 - intermediate card tender (current) use of insulin Code(s): E11.42 - Type 2 diabetes mellitus with diabetic polyneuropathy (4) Delayed wound healing Status: Chronic Code(s): T14.8XXD - Other injury of unspecified body region, subsequent encounter (5) PVD (peripheral vascular disease) Status: Chronic Code(s): I73.9 - Peripheral vascular disease, unspecified (6) Chronic ulcer of right foot with fat layer exposed Status: Chronic Code(s): L97.512 - Non-pressure chronic ulcer of other part of right foot with fat layer exposed Type of Wound Date of Service: 08/02/18 Chief Complaint: post op right foot. left leg ulcer History of Wound: This 57-year-old diabetic male follows up for ulcer to the right foot where he had a previous resection of the fifth ray secondary to an acute wet gangrene infection. He is currently on a course of antibiotics under the management of infectious disease. He denies current fever, chill, nausea, vomiting, calf pain, heat from the legs, shortness of breath or chest pain. He denies pain today. He relates his left leg ulcer is no longer draining and he thinks the site has healed today. Progress of Wound: Improving - Physical Exam Vital Signs Temp Pulse Resp BP 98.7 F 89 20 H 162/92 H 08/02/18 10:37 08/02/18 10:37 08/02/18 10:37 08/02/18 10:37 General: Alert, Oriented x3, Cooperative Extremities: No cyanosis, Capillary Refill Less than 3 Seconds, No Calf Tenderness - Negative Ida and Maldonado sign bilateral, Diminished Peripheral Pulses, Edema - Decreased bilateral lower extremities compared to last week, - - Right fifth ray resection noted Skin: Ulcer/ Wound - No purulence, erythema, streaking, odor, or acute infection bilateral. There is full epithelialization to the previous leg ulcer site. His bilateral skin is atrophic and friable. The right surgical site has well aligned and coapted in margins noted. There is scant skin discontinuity central with the suture removal. There is no deep probing or exposed deep tissues. There is no maceration eschar or tissue loss. Steri-Strips were applied to the site. Wound Measurements and Assessment WC - Nurse 1 - General Ulcer Measurement Start: 07/26/18 11:07 Freq: Status: Active Protocol: Activity Type Activity Date Activity User E-Sign Co-Sign Detail Recorded Client Recorded Date Recorded By Document 08/02/18 10:37 DL [id number] 08/02/18 10:45 DL 08/02/18 10:37 Wound Center Nurse 1 [Ulcer Assessment] #9 left haro ulcer -Current Size (cm) - Length 0.1 -Current Size (cm) - Width 0.1 -Current Size (cm) - Depth 0.1 -Total Square Cm 0.01 -Photo Taken No -Exudate Amt None Present (0 %) -Wound Margin Flat & Intact -Granulation Amt Large (67-100%) -Granulation Quality [place] -Necrosis Amt Small (1-33%) -Necrotic Tissue Type Eschar -Structure Exposed N/A -Texture (Belle-wound Skin Appearance) Scarring -Moisture (Belle-wound Skin Appearance No Abnormality ) -Color (Belle-wound Skin Appearance) Hemosiderin Staining -Ulcer Cleansing Rinsed/ Irrigated with Saline -Foul Odor after Cleansing No #8 Right 5th Toe AMP SITE -Current Size (cm) - Length 6 -Current Size (cm) - Width 0.2 -Current Size (cm) - Depth 0.1 -Total Square Cm 1.2 -Photo Taken No -Exudate Amt Small (1-33%) -Exudate Type Serosanguineous -Wound Margin Distinct, Outline Attached -Granulation Amt Large (67-100%) -Granulation Quality [place] -Necrosis Amt Small (1-33%) -Necrotic Tissue Type Adherent Slough -Structure Exposed N/A -Texture (Belle-wound Skin Appearance) Scarring -Moisture (Belle-wound Skin Appearance Dry/Scaly ) -Color (Belle-wound Skin Appearance) Hemosiderin Staining -Temperature (Belle-wound Skin No Abnormality Appearance) (Pt Warm) -Ulcer Cleansing Rinsed/ Irrigated with Saline -Foul Odor after Cleansing No -Anesthetic Used 4% Lidocaine Solution [Edema Assessment] -Right Calf (cm) 41 -Right Ankle (cm) 24.5 -Left Calf (cm) 40.5 -Left Ankle (cm) 23.5 KULWINDER - Nurse 2 - General Ulcer CM Notes Start: 07/26/18 11:07 Freq: Status: Active Protocol: Activity Type Activity Date Activity User E-Sign Co-Sign Detail Recorded Client Recorded Date Recorded By Document 08/02/18 11:28 [id number] 08/02/18 11:31 08/02/18 11:28 Wound Center Nurse 2 [Procedure/Treatment] #9 left haro ulcer -Time 11:29 -Correct Patient Yes -Correct Side, Site, Position Yes -Correct Procedure Yes -Procedure Performed Yes -Post Debridement Size (cm) - Length 0 -Post Debridement Size (cm) - Width 0 -Post Debridement Size (cm) - Depth 0 -Total Square Cm 0 -Wound/Ulcer Outcome Healed- Epithelialized -Ulcer Cleansing Rinsed/ Irrigated with Saline -Foul Odor after Cleansing No -Bioengineered Tissue No -Topical Lidocaine (%) 4 -Bleeding Controlled with Pressure -Treatment Response Procedure Tolerated Well #8 Right 5th Toe AMP SITE -Time 11:30 -Correct Patient Yes -Correct Side, Site, Position Yes -Correct Procedure Yes -Procedure Performed Yes -Post Debridement Size (cm) - Length 0.7 -Post Debridement Size (cm) - Width 0.2 -Post Debridement Size (cm) - Depth 0.3 -Total Square Cm 0.14 -Wound/Ulcer Outcome Not Healed -Ulcer Cleansing Rinsed/ Irrigated with Saline -Foul Odor after Cleansing No -Bioengineered Tissue No -Topical Lidocaine (%) 4 -Bleeding Controlled with Pressure -Treatment Response Procedure Tolerated Well [See Physician Procedure note for Specifics] Pain Scale: 0-10 Numeric [Pain] -Is Patient Pain Free? Yes Musculoskeletal: No Tenderness to Palpation of Joints or Extremities, Muscle Wasting Neurological: - - Of epicritic sensation light touch right lower extremity and left lower extremity Psych/Mental Status: Normal Affect, Appropriate Debridement Note Post-Debridement Measurements/Treatment [email or web address] - Nurse 2 - General Ulcer CM Notes Start: 07/26/18 11:07 Freq: Status: Active Protocol: Activity Type Activity Date Activity User E-Sign Co-Sign Detail Recorded Client Recorded Date Recorded By Document 07/26/18 11:23 TM [id number] 07/26/18 11:39 TM Document 08/02/18 11:28 [id number] 08/02/18 11:31 TM 07/26/18 08/02/18 11:23 11:28 Wound Center Nurse 2 #9 left haro ulcer -Time 11:39 11:29 -Correct Patient Yes Yes -Correct Side, Site, Position Yes Yes -Correct Procedure Yes Yes -Procedure Performed Yes Yes -Post Debridement Size (cm) - Length 1.0 0 -Post Debridement Size (cm) - Width 0.5 0 -Post Debridement Size (cm) - Depth 0.1 0 -Total Square Cm 0.50 0 -Wound/Ulcer Outcome Not Healed Healed- Epithelialized -Ulcer Cleansing Rinsed/ Rinsed/ Irrigated with Irrigated with Saline Saline -Foul Odor after Cleansing No No -Bioengineered Tissue No No -Topical Lidocaine (%) 4 -Bleeding Controlled with NA Pressure -Treatment Response Procedure Procedure Tolerated Well Tolerated Well #8 Right 5th Toe AMP SITE -Time 11:23 11:30 -Correct Patient Yes Yes -Correct Side, Site, Position Yes Yes -Correct Procedure Yes Yes -Procedure Performed Yes Yes -Post Debridement Size (cm) - Length 6.5 0.7 -Post Debridement Size (cm) - Width 0 0.2 -Post Debridement Size (cm) - Depth 0 0.3 -Total Square Cm 0 0.14 -Wound/Ulcer Outcome Not Healed Not Healed -Ulcer Cleansing Rinsed/ Rinsed/ Irrigated with Irrigated with Saline Saline -Foul Odor after Cleansing No No -Bioengineered Tissue No No -Topical Lidocaine (%) 4 -Bleeding Controlled with Pressure Pressure -Treatment Response Procedure Procedure Tolerated Well Tolerated Well Pain Scale: 0-10 Numeric Is Patient Pain Free? 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 Healed left leg ulcer. Hammertoes bilateral. DM with neuropathy. Delayed ulcer healing. PVD. Non compliance history Plan: I reviewed and discussed his case today. Debridement was not performed today. Suture removal was performed to the right foot, and Steri strips were applied to right foot surgical site to further reduce tension in this healing s ite. Serial labs will be monitored throughout this process. These results were reviewed and it is noted his sedimentation rate has decreased to 10. Patient is to keep his feet clean and dry each day and was instructed again to not soak his feet. Patient has offloading surgical shoes in the areas of the ulcers. Place weight on the heels. He is to continue to wear these at all times when ambulation is necessary was instructed to try and keep pressure off of the ulcer sites. Patient was instructed to be nonweightbearing as much as possible during this healing process. LEAS studies were completed while the patient was in the hospital and were read as possible mild small vessel disease of the right foot/toes. No additional intervention was recommended. We can reconsider repeat x-rays in the future if necessary. To continue with improved nutrition and I recommend nutritional supplementation optimize healing. Patient was educated on all signs and symptoms of local and systemic infection and he was instructed to go to the emergency room immediately should he notice any of these. To improve compliance with compression therapy; his increased swelling is noted. I advised him to follow the recommended IV antibitoic. All questions were answered to the patient's satisfaction during his visit today. The patient will follow-up in clinic in 1 week to check on progress, but was instructed to call the office sooner if needed.
[2018-08-09 11:50] VITALS: BP 153/87; PULSE 93; RESP 16; TEMP 36.3
--- NOTE | 2018-08-09 13:44 | PCM.PN.ID ---
Subjective: Feeling ok, but desperate to get off iv abx. Foot doing well, nearly completely closed incision. Having some mild diarrhea. No fever. - Physical Exam General: Alert, Cooperative, No apparent distress Lungs: Clear to auscultation, Normal air movement Cardiovascular: Regular rate, Regular Rhythm Abdomen: Soft, Non Tender, Non-Distended Extremities: No edema Skin: Ulcer/ Wound - R foot incision with only 2 pinpoint opening. Vital Signs Temp Pulse Resp BP 97.3 F L 93 16 153/87 H 08/09/18 11:50 08/09/18 11:50 08/09/18 11:50 08/09/18 11:50 Finger Stick Blood Glucose 82 Medical Necessity - Tobacco Use Smoking Status: Current some day smoker Route of nutrition/ use of supplements: [] Nutritional Intake: [] IV Site: [] White Catheter: [] - Assessment/Plan Antibiotics: [] Assessment/Plan: [] R foot DM infection s/p 5th toe resection 06/05/18 for osteo. Surg cx at that time had clear margins. He grew 06/05 morganella and GBS with anaerobes in other OR specimen. 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 Then developed wound infection with surgical debridement done 07/[address] Abarca. Picc placed. Wound cx now with providencia, GBS, and GPR. Sent home on iv ceftriaxone 2gm qday and po flagyl 500mg tid for 6 weeks, stop date 08/15/18, weekly bmp, cbc, and esr while on iv abx. Doing well at home, foot improving, ESR now normal no issues with picc. He wishes to stop the abx, discussed risks and benefits, and it is ok to stop the course a few days early. counseled him re: monitoring for rash, swelling, drainage, pain, fever. Will follow as needed, d/w Dr. Abarca.
--- NOTE | 2018-08-09 14:46 | PN.PCM_ITS ---
(1) Chronic ulcer of right foot with fat layer exposed Status: Chronic Code(s): L97.512 - Non-pressure chronic ulcer of other part of right foot with fat layer exposed (2) Osteomyelitis Status: Resolved Qualifiers: Code(s): M86.9 - Osteomyelitis, unspecified (3) Type 2 diabetes mellitus with diabetic polyneuropathy Status: Chronic Qualifiers: Diabetes mellitus termite control service representative insulin use: with prison use Qualified Code(s): E11.42 - Type 2 diabetes mellitus with diabetic polyneuropathy; Z79.4 - FDC (current) use of insulin Code(s): E11.42 - Type 2 diabetes mellitus with diabetic polyneuropathy (4) Delayed wound healing Status: Chronic Code(s): T14.8XXD - Other injury of unspecified body region, subsequent encounter (5) PVD (peripheral vascular disease) Status: Chronic Code(s): I73.9 - Peripheral vascular disease, unspecified Type of Wound Date of Service: 08/09/18 Chief Complaint: right foot ulcer History of Wound: This 57-year-old diabetic male follows up for ulcer to the right foot where he had a previous resection of the fifth ray secondary to an acute wet gangrene infection. He is currently on a course of antibiotics under the management of infectious disease and has a follow up today; he asks if he can stop his antibiotics early. He denies current fever, chill, nausea, vomiting, calf pain, heat from the legs, shortness of breath or chest pain. He denies pain today. He relates his leg swelling has decreased this past week. Progress of Wound: Improving - Physical Exam Vital Signs Temp Pulse Resp BP 97.3 F L 93 16 153/87 H 08/09/18 11:50 08/09/18 11:50 08/09/18 11:50 08/09/18 11:50 General: Alert, Oriented x3, Cooperative Extremities: No cyanosis, Capillary Refill Less than 3 Seconds, No Calf Tenderness - negative [place] and mtz signs bilateral, Diminished Peripheral Pulses, Edema - decreased bilateral lower extremities, - - right fifth ray resection noted Skin: Ulcer/ Wound - no purulence, no erythema ,no streaking, no deep tissue exposed, no necrosis, no infection. peripheral skin is hairless and atrophic. no interdigital maceration seen Wound Measurements and Assessment WC - Nurse 1 - General Ulcer Measurement Start: 07/26/18 11:07 Freq: Status: Active Protocol: Activity Type Activity Date Activity User E-Sign Co-Sign Detail Recorded Client Recorded Date Recorded By Document 08/09/18 11:50 [id number] 08/09/18 11:55 08/09/18 11:50 Wound Center Nurse 1 [Ulcer Assessment] #8 Right 5th Toe AMP SITE -Combined with other wound No -Current Size (cm) - Length 1.5 -Current Size (cm) - Width 0.1 -Current Size (cm) - Depth 0.2 -Total Square Cm 0.15 -Photo Taken No -Epithelialization Large 67-100% -Tunneling No -Undermining/Tunneling No -Circular Undermining No -Exudate Amt Small (1-33%) -Exudate Type Serosanguineous -Wound Margin Flat & Intact -Granulation Amt Medium (34-66%) -Granulation Quality [place] -Slough/Fibrin Yes -Necrosis Amt Small (1-33%) -Necrotic Tissue Type Adherent Slough -Structure Exposed N/A -Texture (Belle-wound Skin Appearance) Assessed Localized Edema -Moisture (Belle-wound Skin Appearance Assessed ) Dry/Scaly -Color (Belle-wound Skin Appearance) Assessed -Temperature (Belle-wound Skin No Abnormality Appearance) (Pt Warm) -Tenderness on Palpation (Belle-wound No Skin Appearance) -Ulcer Cleansing Wound Cleanser -Foul Odor after Cleansing No [Edema Assessment] -Lower Limb Edema Present Yes -Right Calf (cm) 40.7 -Right Ankle (cm) 24.0 - Nurse 2 - General Ulcer CM Notes Start: 07/26/18 11:07 Freq: Status: Active Protocol: Activity Type Activity Date Activity User E-Sign Co-Sign Detail Recorded Client Recorded Date Recorded By Document 08/09/18 12:27 [id number] 08/09/18 12:28 08/09/18 12:27 Wound Center Nurse 2 [Procedure/Treatment] #8 Right 5th Toe AMP SITE -Time 12:28 -Correct Patient Yes -Correct Side, Site, Position Yes -Correct Procedure Yes -Procedure Performed Yes -Type of Procedure Debridement -Clinical Debridement Subcutaneous -Post Debridement Size (cm) - Length 1.5 -Post Debridement Size (cm) - Width 0.2 -Post Debridement Size (cm) - Depth 0.2 -Total Square Cm 0.30 -Wound/Ulcer Outcome Not Healed -Ulcer Cleansing Rinsed/ Irrigated with Saline -Foul Odor after Cleansing No -Bioengineered Tissue No -Bleeding Controlled with Pressure -Treatment Response Procedure Tolerated Well [See Physician Procedure note for Specifics] Pain Scale: 0-10 Numeric [Pain] -Is Patient Pain Free? Yes Musculoskeletal: No Tenderness to Palpation of Joints or Extremities, Muscle Wasting Neurological: - - lack of epicritic sensation noted via light touch right lower extremity Psych/Mental Status: Normal Affect, Appropriate Debridement Note Post-Debridement Measurements/Treatment WC - Nurse 2 - General Ulcer CM Notes Start: 07/26/18 11:07 Freq: Status: Active Protocol: Activity Type Activity Date Activity User E-Sign Co-Sign Detail Recorded Client Recorded Date Recorded By Document 07/26/18 11:23 [id number] 07/26/18 11:39 TM Document 08/02/18 11:28 [id number] 08/02/18 11:31 TM Document 08/09/18 12:27 [id number] 08/09/18 12:28 07/26/18 08/02/18 08/09/18 11:23 11:28 12:27 Wound Center Nurse 2 #9 left haro ulcer -Time 11:39 11:29 -Correct Patient Yes Yes -Correct Side, Site, Position Yes Yes -Correct Procedure Yes Yes -Procedure Performed Yes Yes -Post Debridement Size (cm) - Length 1.0 0 -Post Debridement Size (cm) - Width 0.5 0 -Post Debridement Size (cm) - Depth 0.1 0 -Total Square Cm 0.50 0 -Wound/Ulcer Outcome Not Healed Healed- Epithelialized -Ulcer Cleansing Rinsed/ Rinsed/ Irrigated with Irrigated with Saline Saline -Foul Odor after Cleansing No No -Bioengineered Tissue No No -Topical Lidocaine (%) 4 -Bleeding Controlled with NA Pressure -Treatment Response Procedure Procedure Tolerated Well Tolerated Well #8 Right 5th Toe AMP SITE -Time 11:23 11:30 12:28 -Correct Patient Yes Yes Yes -Correct Side, Site, Position Yes Yes Yes -Correct Procedure Yes Yes Yes -Procedure Performed Yes Yes Yes -Type of Procedure Debridement -Clinical Debridement Subcutaneous -Post Debridement Size (cm) - Length 6.5 0.7 1.5 -Post Debridement Size (cm) - Width 0 0.2 0.2 -Post Debridement Size (cm) - Depth 0 0.3 0.2 -Total Square Cm 0 0.14 0.30 -Wound/Ulcer Outcome Not Healed Not Healed Not Healed -Ulcer Cleansing Rinsed/ Rinsed/ Rinsed/ Irrigated with Irrigated with Irrigated with Saline Saline Saline -Foul Odor after Cleansing No No No -Bioengineered Tissue No No No -Topical Lidocaine (%) 4 -Bleeding Controlled with Pressure Pressure Pressure -Treatment Response Procedure Procedure Procedure Tolerated Well Tolerated Well Tolerated Well Pain Scale: 0-10 Numeric Is Patient Pain Free? 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 Healed left leg ulcer. Hammertoes bilateral. DM with neuropathy. Delayed ulcer healing. PVD. Non compliance history Plan: I reviewed and discussed his case today. Debridement was performed today as noted in the clinical panel. To change dressing daily with moose; this was demonstrated. Serial labs will be monitored throughout this process.No leukocytosis or esr elevation is noted today. Infectious disease did also follow up with him today and his antibiotics were stopped. His picc line was removed today. Patient is to keep his feet clean and dry each day and was instructed again to not soak his feet. Patient has offloading surgical shoes right foot. Place weight on the heel. He is to continue to wear these at all times when ambulation is necessary was instructed to try and keep pressure off of the ulcer sites. Patient was instructed to be nonweightbearing as much as possible during this healing process. LEAS studies were completed while the patient was in the hospital and were read as possible mild small vessel disease of the right foot/toes. No additional intervention was recommended. We can reconsider repeat x-rays in the future if necessary. To continue with improved nutrition and I recommend nutritional supplementation optimize healing. Patient was educated on all signs and symptoms of local and systemic infection and he was instructed to go to the emergency room immediately should he notice any of these. To improve compliance with compression therapy. All questions were answered to the patient's satisfaction during his visit today. The patient will follow-up in clinic in 1 week to check on progress, but was instructed to call the office sooner if needed.
[2018-08-16 09:07] VITALS: BP 158/84; PULSE 89; RESP 18; TEMP 36.3
--- NOTE | 2018-08-16 11:51 | PCM.WC.PN ---
(1) Chronic ulcer of right foot with fat layer exposed Status: Resolved Code(s): L97.512 - Non-pressure chronic ulcer of other part of right foot with fat layer exposed (2) Osteomyelitis Status: Resolved Qualifiers: Osteomyelitis type: subacute Osteomyelitis location: foot Laterality: right Qualified Code(s): M86.271 - Subacute osteomyelitis, right ankle and foot Code(s): M86.9 - Osteomyelitis, unspecified (3) Type 2 diabetes mellitus with diabetic polyneuropathy Status: Chronic Qualifiers: Diabetes mellitus penitentiary insulin use: with terminal system operator use Qualified Code(s): E11.42 - Type 2 diabetes mellitus with diabetic polyneuropathy; Z79.4 - detention (current) use of insulin Code(s): E11.42 - Type 2 diabetes mellitus with diabetic polyneuropathy (4) PVD (peripheral vascular disease) Status: Chronic Code(s): I73.9 - Peripheral vascular disease, unspecified Type of Wound Date of Service: 08/16/18 Chief Complaint: right foot ulcer History of Wound: This 57-year-old diabetic male follows up for ulcer to the right foot where he had a previous resection of the fifth ray secondary to an acute wet gangrene infection. His PICC line and IV antibiotic administration was stopped last week and he is doing well. He denies current fever, chill, nausea, vomiting, calf pain, heat from the legs, shortness of breath or chest pain. He denies pain today. He relates his leg swelling has decreased this past week. Progress of Wound: Healed - Physical Exam Vital Signs Temp Pulse Resp BP 97.3 F L 89 18 158/84 H 08/16/18 09:07 08/16/18 09:07 08/16/18 09:07 08/16/18 09:07 General: Alert, Oriented x3, Cooperative Extremities: No cyanosis, Capillary Refill Less than 3 Seconds, No Calf Tenderness - Negative Ida and Maldonado sign bilateral, Diminished Peripheral Pulses, Edema - Decreased right lower extremity, - - Fifth ray resection right lower extremity Skin: Ulcer/ Wound - No purulence, erythema, swelling, odor, or infection. There is full epithelialization and all ulcer sites are healed at this time. No interdigital maceration is noted. The peripheral skin is hairless and atrophic right lower extremity Wound Measurements and Assessment WC - Nurse 1 - General Ulcer Measurement Start: 07/26/18 11:07 Freq: Status: Active Protocol: Activity Type Activity Date Activity User E-Sign Co-Sign Detail Recorded Client Recorded Date Recorded By Document 08/16/18 09:07 DL [id number] 08/16/18 09:13 DL 08/16/18 09:07 Wound Center Nurse 1 [Ulcer Assessment] #8 Right 5th Toe AMP SITE -Current Size (cm) - Length 1.5 -Current Size (cm) - Width 0.3 -Current Size (cm) - Depth 0.1 -Total Square Cm 0.45 -Photo Taken No -Exudate Amt None Present (0 %) -Wound Margin Thickened -Granulation Amt Large (67-100%) -Granulation Quality [place] -Necrosis Amt Small (1-33%) -Necrotic Tissue Type Adherent Slough -Structure Exposed N/A -Texture (Belle-wound Skin Appearance) Scarring -Moisture (Belle-wound Skin Appearance No Abnormality ) -Color (Belle-wound Skin Appearance) Hemosiderin Staining -Temperature (Belle-wound Skin No Abnormality Appearance) (Pt Warm) -Ulcer Cleansing Wound Cleanser -Foul Odor after Cleansing No -Anesthetic Used 4% Lidocaine Solution [Edema Assessment] -Right Calf (cm) 41 -Right Ankle (cm) 23.2 WC - Nurse 2 - General Ulcer CM Notes Start: 07/26/18 11:07 Freq: Status: Active Protocol: Activity Type Activity Date Activity User E-Sign Co-Sign Detail Recorded Client Recorded Date Recorded By Document 08/16/18 09:29 [id number] 08/16/18 09:35 TM 08/16/18 09:29 Wound Center Nurse 2 [Procedure/Treatment] #8 Right 5th Toe AMP SITE -Time 09:32 -Correct Patient Yes -Correct Side, Site, Position Yes -Correct Procedure Yes -Procedure Performed Yes -Post Debridement Size (cm) - Length 0 -Post Debridement Size (cm) - Width 0 -Post Debridement Size (cm) - Depth 0 -Total Square Cm 0 -Wound/Ulcer Outcome Healed- Epithelialized -Ulcer Cleansing Rinsed/ Irrigated with Saline -Foul Odor after Cleansing No -Topical Lidocaine (%) 5 -Bleeding Controlled with NA -Treatment Response Procedure Tolerated Well [See Physician Procedure note for Specifics] Pain Scale: 0-10 Numeric [Pain] -Is Patient Pain Free? Yes Musculoskeletal: No Tenderness to Palpation of Joints or Extremities, Muscle Wasting Neurological: - - Lack of epicritic sensation light touch right lower extremity Psych/Mental Status: Normal Affect, Appropriate Debridement Note Post-Debridement Measurements/Treatment WC - Nurse 2 - General Ulcer CM Notes Start: 07/26/18 11:07 Freq: Status: Active Protocol: Activity Type Activity Date Activity User E-Sign Co-Sign Detail Recorded Client Recorded Date Recorded By Document 07/26/18 11:23 [id number] 07/26/18 11:39 Document 08/02/18 11:28 [id number] 08/02/18 11:31 TM Document 08/09/18 12:27 [id number] 08/09/18 12:28 Document 08/16/18 09:29 [id number] 08/16/18 09:35 07/26/18 08/02/18 08/09/18 11:23 11:28 12:27 Wound Center Nurse 2 #9 left haro ulcer -Time 11:39 11:29 -Correct Patient Yes Yes -Correct Side, Site, Position Yes Yes -Correct Procedure Yes Yes -Procedure Performed Yes Yes -Post Debridement Size (cm) - Length 1.0 0 -Post Debridement Size (cm) - Width 0.5 0 -Post Debridement Size (cm) - Depth 0.1 0 -Total Square Cm 0.50 0 -Wound/Ulcer Outcome Not Healed Healed- Epithelialized -Ulcer Cleansing Rinsed/ Rinsed/ Irrigated with Irrigated with Saline Saline -Foul Odor after Cleansing No No -Bioengineered Tissue No No -Topical Lidocaine (%) 4 -Bleeding Controlled with NA Pressure -Treatment Response Procedure Procedure Tolerated Well Tolerated Well #8 Right 5th Toe AMP SITE -Time 11:23 11:30 12:28 -Correct Patient Yes Yes Yes -Correct Side, Site, Position Yes Yes Yes -Correct Procedure Yes Yes Yes -Procedure Performed Yes Yes Yes -Type of Procedure Debridement -Clinical Debridement Subcutaneous -Post Debridement Size (cm) - Length 6.5 0.7 1.5 -Post Debridement Size (cm) - Width 0 0.2 0.2 -Post Debridement Size (cm) - Depth 0 0.3 0.2 -Total Square Cm 0 0.14 0.30 -Wound/Ulcer Outcome Not Healed Not Healed Not Healed -Ulcer Cleansing Rinsed/ Rinsed/ Rinsed/ Irrigated with Irrigated with Irrigated with Saline Saline Saline -Foul Odor after Cleansing No No No -Bioengineered Tissue No No No -Topical Lidocaine (%) 4 -Bleeding Controlled with Pressure Pressure Pressure -Treatment Response Procedure Procedure Procedure Tolerated Well Tolerated Well Tolerated Well Pain Scale: 0-10 Numeric Is Patient Pain Free? Yes Yes Yes 08/16/18 09:29 Wound Center Nurse 2 #9 left haro ulcer -Time -Correct Patient -Correct Side, Site, Position -Correct Procedure -Procedure Performed -Post Debridement Size (cm) - Length -Post Debridement Size (cm) - Width -Post Debridement Size (cm) - Depth -Total Square Cm -Wound/Ulcer Outcome -Ulcer Cleansing -Foul Odor after Cleansing -Bioengineered Tissue -Topical Lidocaine (%) -Bleeding Controlled with -Treatment Response #8 Right 5th Toe AMP SITE -Time 09:32 -Correct Patient Yes -Correct Side, Site, Position Yes -Correct Procedure Yes -Procedure Performed Yes -Type of Procedure -Clinical Debridement -Post Debridement Size (cm) - Length 0 -Post Debridement Size (cm) - Width 0 -Post Debridement Size (cm) - Depth 0 -Total Square Cm 0 -Wound/Ulcer Outcome Healed- Epithelialized -Ulcer Cleansing Rinsed/ Irrigated with Saline -Foul Odor after Cleansing No -Bioengineered Tissue -Topical Lidocaine (%) 5 -Bleeding Controlled with NA -Treatment Response Procedure Tolerated Well Pain Scale: 0-10 Numeric Is Patient Pain Free? Yes No debridement was completed today - The ulcer site has healed Assessment/Plan Assessment: s/p fifth ray amputation of the right foot and ulcer-heel today. Healed left leg ulcer. Hammertoes bilateral. DM with neuropathy. PVD. Non compliance history Plan: I reviewed and discussed his case today. The ulcer site has healed. Therefore no ulcer debridement was performed. To discontinue dressing care. To continue protective offloading surgical shoe for the next week. After that week if things go well he can progress into his extra-depth protective shoes. He relates he needs to get this updated. I advised him to return to the foot and ankle Center within the next month to get extra-depth diabetic shoes and specialized insole Plastizote liners ordered to prevent further limb loss or ulcer formation. To check feet daily and moisturize to keep skin integrity intact. Okay to proceed with routine showering. To avoid barefoot walking at home. To continue proper glycemic control. He was reassured no signs of infection are noted today and it is noted his PICC line use of IV antibiotics was discontinued last week. He will be discharged from the wound healing center today. I answered all his questions.
== END 2018-08-18 09:54 | disposition home or self-care (01) ==
LOC: WC 09:51
PROVIDERS: Family Provider Family Medicine; PCP Family Medicine; Visit Provider Podiatrist
DX: E11.622 Type 2 diabetes mellitus with other skin ulcer (principal); L97.822 Non-pressure chronic ulcer of other part of left lower leg with fat layer exposed; E11.42 Type 2 diabetes mellitus with diabetic polyneuropathy; E11.51 Type 2 diabetes mellitus with diabetic peripheral angiopathy without gangrene; T87.89 Other complications of amputation stump; Y83.8 Other surgical procedures as the cause of abnormal reaction of the patient, or of later complication, without mention of misadventure at the time of the procedure; F17.200 Nicotine dependence, unspecified, uncomplicated; M20.42 Other hammer toe(s) (acquired), left foot; M20.41 Other hammer toe(s) (acquired), right foot; Z91.19 Patient's noncompliance with other medical treatment and regimen
CPT/HCPCS: 11042; 99213; 99214; G0463

== ENCOUNTER 2018-08-07 15:46 | Outpatient (RCR) | payer BC, SELFPAY ==
[2018-07-24 18:18] LABS: Hemoglobin 14.1 g/dl (13.0-16.5); Mean Corp Hgb Conc 33.6 g/gl (32-36); Mean Corpuscular Hgb 30.6 pg (27.0-32.0); Mean Corpuscular Volume 91.1 fL (80-94); Mean Platelet Vol. 10.8 fl (6.2-12.0); Platelet Count 180 K/mm3 (150-450); RBC Distribution Width CV 14.1 % (11.6-14.6); RBC Distribution Width SD 46.2 fl (35.1-43.9); Red Blood Count 4.61 M/mm3 (4.6-6.2); White Blood Count 4.9 K/mm3 (4.4-11.0)
[2018-07-24 18:19] LABS: Erythrocyte Sedimentation Rate 16 mm/hr (0-20)
[2018-07-24 18:20] LABS: Scan Indicated on CBC? Y/N NO
[2018-07-24 18:27] LABS: Anion Gap 8 (5-15); BUN 22 mg/dL (7-18); BUN/Creat Ratio 29.3 RATIO (10-20); Chloride 103 mmol/L (98-107); Creatinine, Serum 0.75 mg/dL (0.70-1.30); EST Glomerular Filtration Rate 114 mL/min (>60); Est Glom Filt Rate - Afr Amer 138 mL/min (>60); Glucose 158 mg/dL (74-106); Potassium 4.2 mmol/L (3.5-5.1); Sodium Level 141 mmol/L (136-145)
[2018-07-31 14:16] LABS: Erythrocyte Sedimentation Rate 10 mm/hr (0-20)
[2018-07-31 14:18] LABS: Mean Corp Hgb Conc 32.6 g/gl (32-36); Mean Corpuscular Hgb 29.8 pg (27.0-32.0); Mean Corpuscular Volume 91.5 fL (80-94); Mean Platelet Vol. 10.8 fl (6.2-12.0); Platelet Count 179 K/mm3 (150-450); RBC Distribution Width CV 14.3 % (11.6-14.6); RBC Distribution Width SD 47.3 fl (35.1-43.9); Red Blood Count 5.03 M/mm3 (4.6-6.2); Scan Indicated on CBC? Y/N NO; White Blood Count 5.3 K/mm3 (4.4-11.0)
[2018-07-31 14:21] LABS: Anion Gap 9 (5-15); BUN 20 mg/dL (7-18); BUN/Creat Ratio 25.3 RATIO (10-20); Calcium,Total 8.8 mg/dL (8.5-10.1); Chloride 103 mmol/L (98-107); Creatinine, Serum 0.79 mg/dL (0.70-1.30); EST Glomerular Filtration Rate 108 mL/min (>60); Est Glom Filt Rate - Afr Amer 131 mL/min (>60); Glucose 238 mg/dL (74-106); Sodium Level 142 mmol/L (136-145)
[2018-08-07 17:56] LABS: Anion Gap 7 (5-15); BUN 20 mg/dL (7-18); BUN/Creat Ratio 24.7 RATIO (10-20); Calcium,Total 8.5 mg/dL (8.5-10.1); Chloride 103 mmol/L (98-107); Creatinine, Serum 0.81 mg/dL (0.70-1.30); EST Glomerular Filtration Rate 105 mL/min (>60); Est Glom Filt Rate - Afr Amer 127 mL/min (>60); Glucose 201 mg/dL (74-106); Potassium 4.4 mmol/L (3.5-5.1); Sodium Level 139 mmol/L (136-145)
[2018-08-07 18:00] LABS: Hematocrit 44.5 % (40-54); Hemoglobin 14.4 g/dl (13.0-16.5); Mean Corp Hgb Conc 32.4 g/gl (32-36); Mean Corpuscular Hgb 29.8 pg (27.0-32.0); Mean Corpuscular Volume 91.9 fL (80-94); Mean Platelet Vol. 10.7 fl (6.2-12.0); Platelet Count 156 K/mm3 (150-450); RBC Distribution Width CV 14.2 % (11.6-14.6); RBC Distribution Width SD 47.8 fl (35.1-43.9); Red Blood Count 4.84 M/mm3 (4.6-6.2); White Blood Count 5.1 K/mm3 (4.4-11.0)
[2018-08-07 18:24] LABS: Scan Indicated on CBC? Y/N NO
[2018-08-07 22:31] LABS: Erythrocyte Sedimentation Rate 19 mm/hr (0-20)
== END 2018-08-18 23:59 ==
LOC: HHLAB 15:46
PROVIDERS: Family Provider Family Medicine; PCP Family Medicine; Referring Provider Podiatrist; Visit Provider Podiatrist
DX: E11.621 Type 2 diabetes mellitus with foot ulcer (principal); L97.514 Non-pressure chronic ulcer of other part of right foot with necrosis of bone; Z51.81 Encounter for therapeutic drug level monitoring; Z79.2 Long term (current) use of antibiotics; Z79.4 Long term (current) use of insulin; Z89.421 Acquired absence of other right toe(s); Z87.891 Personal history of nicotine dependence
CPT/HCPCS: 80048; 85027; 85652

== ENCOUNTER 2020-02-27 12:47 | Emergency (ER) | payer BC, SELFPAY ==
[2020-02-27 11:21] VITALS: BMI 41.1
[2020-02-27 12:49] VITALS: BP 135/86; PULSE 90; RESP 16; TEMP 36.7; O2SAT 96; BMI 39.9
--- NOTE | 2020-02-27 13:04 | RAD_ITS ---
STUDY: X-RAY RIGHT FOOT, GREAT TOE REASON FOR EXAM: Male, 59 years old. Pt sent in for evaluation of r great plantar toe wound which started last week Tuesday. had I and amp;D Tuesday. Edema and tenderness to lower extremity. TECHNIQUE: 3 view(s) of the toe were obtained. COMPARISON: Comparison is made with prior examination dated June 05, 2018. FINDINGS: Normal visualized metatarsus. Normal metatarsophalangeal (M.T.P) joint. Normal interphalangeal joints. Normal phalanges and interphalangeal joints. Status post amputation of the fifth metatarsal and the fifth toe. Soft tissue swelling. Vascular calcification. RAD/Toe(s) Min 2 Views IMPRESSION: Soft tissue swelling overlying the great toe. Soft tissue swelling and vascular calcification. 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 Electronically Signed: Jesus Stallworth, at 13:43 EDT , Service support ,
--- NOTE | 2020-02-27 13:16 | ED.DCSUM_ITS ---
History of Present Illness Chief Complaint: Wound Informant: Patient, - - Wound nurse called prior to arrival. Concern patient needed more than what could be provided at the wound center Onset: Weeks - Onset of wound 1.5 weeks ago Context: Sudden Onset Timing: Continuous Quality: Wound plantar surface right great toe Location: Right great toe Current Severity: Mild Maximum Severity: Mild Worsened by: Diabetes and presumed peripheral vascular disease Relieved by: Nothing Associated Symptoms: No fever, chills or sweats. Blood sugar 300+ Narrative: She is a 59-year-old type I diabetic who presents because of wound plantar surface right great toe. First noted wound 1.5 weeks ago. He denies fever, chills or night sweats. States blood sugar is running between 300-400. Last A1c was greater than 10 per report he had an I&D performed on Tuesday. He apparently is on 125 mg of erythromycin twice daily. He denies pain. He does report swelling of the foot. He does report increased urination. Prior similar symptoms: Yes Recent Illness/Hospitalization: Yes - Past Medical History (1) Type 1 diabetes mellitus Status: Chronic (2) Obesity (BMI 30-39.9) Status: Chronic (3) PVD (peripheral vascular disease) Status: Chronic Past Medical History - Allergies and Home Meds Allergies/Adverse Reactions: Allergies No Known Allergies Allergy (Verified 02/27/20 12:53) Primary Care Physician: Matias Graves MD [Primary Care Provider] - Prior records reviewed: Yes Surgical History: noncontributory, - Lives: Spouse/ Significant Other Smoking Status: Never smoker Alcohol: None Drugs: None - Family History Maternal Family History: Reports: - - Other with a history of colon cancer, metastatic. Paternal Family History: Reports: - - Father with a history of prostate cancer. Review of Systems General: Denies: Chills, Fever, Subjective, Sweats Eyes: Denies: Visual changes - bilaterally, Blurred Vision - bilaterally ENT: Denies: Rhinorrhea, Sore throat Cardiovascular: Denies: Chest pain, Palpitations Respiratory: Denies: Dyspnea, Cough, Dyspnea on exertion Gastrointestinal: Denies: Abdominal pain, Nausea, Vomiting, Diarrhea, Melena, Hematochezia Genitourinary: Denies: Dysuria, Hematuria, Frequency Musculoskeletal: Reports: Swelling. Denies: Myalgias, Arthralgias, Neck pain, Back pain, Extremity Pain, -, - Skin: Reports: Rash, Wounds Neurological: Reports: Numbness. Denies: Headache, Weakness, Parasthesia Endocrine: Reports: Polyuria. Denies: Polydipsia, Heat intolerance Hematologic: Denies: Easy bruising, Easy bleeding Physical Exam Vital Signs/Narrative: Vital Signs Temp Pulse Resp BP Pulse Ox 02/27/20 12:49 98.0 F 90 16 135/86 H 96 Inital Vital Signs reviewed: Yes General: Well nourished, Well developed, Obese, No Acute Distress Head: Normocephalic, Atraumatic Eyes: Perrl, EOMI ENT: Moist mucous membranes, No rhinorrhea Neck: Supple, Nontender Cardiovascular: Regular rate, Regular rhythm, No murmurs Respiratory: No distress, CTA bilaterally, Chest nontender Abdomen: Soft, Nontender, Nondistended, Normal bowel sounds Back: Nontender, Normal Inspection Extremities: Nontender, Edema, - - [place] of the right great toe and foot with erythema. There is no induration, lymphangitis or popliteal lymphadenopathy. No fluid was expressed from the wound. There is stigmata of peripheral vascular disease. Skin: Normal color, No rash Neurological: Alert, Oriented x3, Cranial nerves II-XII grossly intact, Normal Strength, Normal Sensation Psychological: Normal affect, Normal Mood Diagnostic/Tx/Re-eval X-ray of the foot reveals soft tissue swelling. No evidence of osteomyelitis. No subcutaneous air noted. No foreign body noted. The white count is normal. ESR is elevated. ESR is not significantly elevated once corrected for age. Will change antibiotic to doxycycline. Impressions Toe X-Ray 02/27/20 13:04 IMPRESSION: Soft tissue swelling overlying the great toe. Soft tissue swelling and vascular calcification. 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 Electronically Signed: Jesus Stallworth, at 13:43 EDT , Service support , 02/27/20 13:04 Toe(s) Min 2 Views [RAD] Stat Laboratory Results 02/27/20 02/27/20 02/27/20 13:45 13:45 13:45 WBC 7.6 RBC 4.58 L Hgb 14.0 Hct 42.5 MCV 92.8 MCH 30.6 MCHC 32.9 RDW Std Deviation 41.0 RDW Coeff of Kylee 11.9 Plt Count 236 MPV 9.6 Immature Gran % (Auto) 0.900 Neut % (Auto) 68.1 Lymph % (Auto) 20.4 [place] % (Auto) 6.5 Eos % (Auto) 3.4 Baso % (Auto) 0.7 Absolute Neuts (auto) 5.2 Absolute Lymphs (auto) 1.55 Nucleated RBC % 0 ESR 44 H Sodium 138 Potassium 3.8 Chloride 101 Carbon Dioxide 31.0 Anion Gap 6 BUN 13 Creatinine 0.83 Estim Creat Clear Calc 95.00 Est GFR (MDRD) Af Amer 123 Est GFR (MDRD) Non-Af 102 BUN/Creatinine Ratio 15.7 Glucose 207 H Lactic Acid 1.0 Calcium 9.2 C-React Prot Ext Range 7.32 H POC Glucose 02/27/20 13:54 WBC RBC Hgb Hct MCV MCH MCHC RDW Std Deviation RDW Coeff of Kylee Plt Count MPV Immature Gran % (Auto) Neut % (Auto) Lymph % (Auto) [place] % (Auto) Eos % (Auto) Baso % (Auto) Absolute Neuts (auto) Absolute Lymphs (auto) Nucleated RBC % ESR Sodium Potassium Chloride Carbon Dioxide Anion Gap BUN Creatinine Estim Creat Clear Calc Est GFR (MDRD) Af Amer Est GFR (MDRD) Non-Af BUN/Creatinine Ratio Glucose Lactic Acid Calcium C-React Prot Ext Range POC Glucose 205 H - Medical Decision Making With diabetic probable wound infection of the right great toe. X-rays were obtained as well is appropriate blood work. Differential diagnosis includes cellulitis, sepsis, severe sepsis, osteomyelitis ED Disposition - Plan for ED Patient: Disposition: Home or Assisted Living Diagnosis: Diabetic foot ulcer associated with type 1 diabetes mellitus, Hyperglycemia due to type 1 diabetes mellitus Instructions: Diabetic Foot Ulcers Prescriptions: Doxycycline 100 mg PO BID #20 cap Transmission Status: Pending to [facility] Referrals: Matias Graves MD [Primary Care Provider] - 2 Days for wound check
[2020-02-27 13:54] VITALS: BP 148/84; PULSE 83; RESP 18; TEMP 36.3; O2SAT 99
[2020-02-27 13:55] LABS: Absolute Lymphocyte Count 1.55 X10^3/uL (0.83-4.51); Absolute Neutrophil Count 5.2 X10^3/uL (2.0-7.7); Basophil# 0.05 X10^3/uL; Basophil% 0.7 % (0-1); Eosinophil# 0.26 X10^3/uL; Eosinophils% 3.4 % (0-5); Hematocrit 42.5 % (40-54); Lymphocyte # 1.55 X10^3/ul (4.0); Lymphocyte % 20.4 % (19-41); Mean Corp Hgb Conc 32.9 g/dL (32-36); Mean Corpuscular Hgb 30.6 pg (27.0-32.0); Mean Corpuscular Volume 92.8 fL (80-94); Mean Platelet Vol. 9.6 fl (6.2-12.0); Monocyte# 0.49 X10^3/uL; Monocyte% 6.5 % (0-10); NRBC Flagged by Analyzer 0 % (0-5); Neutrophil # 5.17 X10^3/uL (2.7-7.7); Neutrophil % 68.1 % (47-70); Platelet Count 236 K/mm3 (150-450); RBC Distribution Width CV 11.9 % (11.6-14.6); Red Blood Count 4.58 M/mm3 (4.6-6.2); White Blood Count 7.6 K/mm3 (4.4-11.0)
[2020-02-27 14:00] VITALS: BP 155/90; PULSE 82; RESP 16; TEMP 36.4; O2SAT 99
[2020-02-27 14:00] LABS: Bedside Glucose 205 mg/dL (70-110)
[2020-02-27 14:05] LABS: Anion Gap 6 (5-15); BUN 13 mg/dL (7-18); BUN/Creat Ratio 15.7 RATIO (10-20); CRP 7.32 mg/L (0.0-3.0); Calcium,Total 9.2 mg/dL (8.5-10.1); Chloride 101 mmol/L (98-107); Creatinine, Serum 0.83 mg/dL (0.70-1.30); EST Glomerular Filtration Rate 102 mL/min (>60); Est Glom Filt Rate - Afr Amer 123 mL/min (>60); Glucose 207 mg/dL (74-106); Potassium 3.8 mmol/L (3.5-5.1); Sodium Level 138 mmol/L (136-145)
[2020-02-27 14:12] LABS: Erythrocyte Sedimentation Rate 44 mm/hr (0-20)
[2020-02-27] MEDS: 0.9% Normal Saline 1,000 ML 1000 ML IV (14:44)
[2020-02-27 14:47] VITALS: BP 155/90; PULSE 85; RESP 16; O2SAT 99
[2020-02-27 15:58] VITALS: BP 145/78; PULSE 78; RESP 18; TEMP 36.8; O2SAT 97
[2020-02-27] MEDS: Doxycycline 100 MG CAPSULE PO (16:08)
== END 2020-02-27 16:13 | disposition home or self-care (01) ==
PROVIDERS: Emergency Provider Emergency Medicine; PCP Family Medicine
DX: E10.621 Type 1 diabetes mellitus with foot ulcer (principal); E10.65 Type 1 diabetes mellitus with hyperglycemia; E66.9 Obesity, unspecified; Z79.4 Long term (current) use of insulin; I73.9 Peripheral vascular disease, unspecified; Z68.39 Body mass index [BMI] 39.0-39.9, adult
CPT/HCPCS: 73660; 80048; 82962; 83605; 85025; 85652; 86140; 96360; 99284; J7030; A4216

== ENCOUNTER 2020-03-12 09:00 | Outpatient (RCR) | payer BC, SELFPAY ==
[2020-02-27 11:21] VITALS: BP 151/87; PULSE 92; RESP 18; TEMP 36.6
--- NOTE | 2020-02-27 12:16 | HP.PCM_ITS ---
(1) Diabetes mellitus type II, uncontrolled Status: Chronic Current Visit: No Qualifiers: Code(s): E11.65 - Type 2 diabetes mellitus with hyperglycemia (2) Diabetic ulcer of right foot Status: Chronic Current Visit: No Code(s): E11.621 - Type 2 diabetes mellitus with foot ulcer; L97.519 - Non-pressure chronic ulcer of other part of right foot with unspecified severity (3) Diabetic foot ulcer associated with diabetes mellitus due to underlying condition Status: Acute Current Visit: Yes Qualifiers: Diabetic foot ulcer location: toe Laterality: left Non-pressure ulcer stage: with necrosis of muscle Qualified Code(s): E08.621 - Diabetes mellitus due to underlying condition with foot ulcer; L97.523 - Non-pressure chronic ulcer of other part of left foot with necrosis of muscle Code(s): E08.621 - Diabetes mellitus due to underlying condition with foot ulcer; L97.509 - Non-pressure chronic ulcer of other part of unspecified foot with unspecified severity History of Present Illness Date of Service: 02/27/20 Chief Complaint: Right great toe ulcer infected History of Wound: 59-year-old white male 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 Noted to be starting 1 week ago saw his 4th grade math teacher was put on oral antibiotic of amoxicillin and referred to us. Upon evaluation the toe is macerated and debrided a lot of skin and he has full-thickness necrosis developing of the pad of the right great toe. Will be referred to the hospital for treatment and evaluation Past Medical History Past Medical History: Chronic Problems Chronic ulcer of right foot with necrosis of bone (Chronic) Type 2 diabetes mellitus with diabetic polyneuropathy (Chronic) Type 2 diabetes mellitus with diabetic polyneuropathy (Chronic) Cellulitis of right foot (Chronic) Delayed wound healing (Chronic) PVD (peripheral vascular disease) (Chronic) Ulcer of right foot with necrosis of muscle (Chronic) Hammer toe of right foot (Chronic) Ulcer of right foot with fat layer exposed (Chronic) Non-pressure chronic ulcer of right heel and midfoot with bone involvement without evidence of necrosis (Chronic) Diabetic ulcer of right foot (Chronic) Type 2 diabetes mellitus with diabetic polyneuropathy (Chronic) Diabetes mellitus type II, uncontrolled (Chronic) Obesity (BMI 30-39.9) (Chronic) Tobacco use (Chronic) Past Medical History: Right great toe necrosis Surgical History: - Allergies/Adverse Reactions: Allergies No Known Allergies Allergy (Verified 06/05/18 10:02) Home Medications: Ambulatory Orders Medication Instructions Recorded Amoxicillin 125 mg PO Q12H PRN 02/27/20 Insulin Aspart [Novolog Flexpen 25 units SUBCUT TIDCM 02/27/20 ([facility])] Insulin Glargine [Lantus SoloStar 100 units SUBCUT BID 02/27/20 Pen] - Family History Maternal - - Other with a history of colon cancer, metastatic. Paternal - - Father with a history of prostate cancer. Smoking Status: Never smoker Review of Systems Constitutional: Denies: Chills, Fever Eyes: Denies: Blurred vision, Drainage, Pain HEENT: Denies: Difficulty Hearing, Difficulty Swallowing, Sore Throat, Visual Changes Cardiovascular: Denies: Chest Pain, Palpitations, Syncope Respiratory: Denies: Cough, Shortness of Breath Gastrointestinal: Denies: Abdominal Pain, Nausea, Vomiting Genitourinary: Denies: Dysuria, Frequency Musculoskeletal: Denies: Joint Pain, Muscle pain Skin: Reports: - - Spiral Tube Winder of the right great toe. Denies: Jaundice, Rash Neurological: Denies: Balance problems, Change in Speech, Difficulty swallowing, Focal weakness Psychiatric: Denies: Anxiety, Depression Endocrine: Denies: Change in Body Habitus Hematologic/ Lymphatic: Denies: Adenopathy - Physical Exam Vital Signs Temp Pulse Resp BP 97.8 F 92 18 151/87 H 02/27/20 11:21 02/27/20 11:21 02/27/20 11:21 02/27/20 11:21 General: Oriented x3, Cooperative, Well developed HEENT: Atraumatic, PERRLA Oral: Moist Mucosa Neck: Supple, No JVD Lungs: Clear to auscultation, Normal air movement Cardiovascular: Regular rate, Regular Rhythm Abdomen: Bowel Sounds Present, Soft, Non Tender, No Hepato-splenomegaly Extremities: No clubbing, No edema Skin: Ulcer/ Wound - Right great toe ulcer with necrosis to the skin of the pad of the right great toe Wound Measurements and Assessment WC - Nurse 1 - General Ulcer Measurement Start: 02/27/20 11:13 Freq: Status: Active Protocol: Activity Type Activity Date Activity User E-Sign Co-Sign Detail Recorded Client Recorded Date Recorded By Document 02/27/20 11:21 RB [id number] 02/27/20 11:43 RB 02/27/20 11:21 Wound Center Nurse 1 [Ulcer Assessment] right great toe plantar -Combined with other wound No -Current Size (cm) - Length 4.3 -Current Size (cm) - Width 3.5 -Current Size (cm) - Depth 0.1 -Total Square Cm 15.05 -Photo Taken Yes -Tunneling No -Undermining/Tunneling No -Circular Undermining No -Exudate Amt Medium -Exudate Type Serosanguineous -Wound Margin Flat & Intact -Granulation Amt Medium (34-66%) -Slough/Fibrin Yes -Necrosis Amt Medium (34-66%) -Necrotic Tissue Type Eschar -Structure Exposed N/A -Texture (Belle-wound Skin Appearance) Assessed -Moisture (Belle-wound Skin Appearance Assessed ) -Color (Belle-wound Skin Appearance) Assessed -Temperature (Belle-wound Skin No Abnormality Appearance) (Pt Warm) -Tenderness on Palpation (Belle-wound No Skin Appearance) -Ulcer Cleansing Wound Cleanser -Foul Odor after Cleansing No -Anesthetic Used 4% Lidocaine Solution [Edema Assessment] -Lower Limb Edema Present Yes -Right Calf (cm) 44.5 -Right Ankle (cm) 25.5 -Left Calf (cm) 40.5 -Left Ankle (cm) 24.2 WC - Nurse 2 - General Ulcer CM Notes Start: 02/27/20 11:13 Freq: Status: Active Protocol: Activity Type Activity Date Activity User E-Sign Co-Sign Detail Recorded Client Recorded Date Recorded By Document 02/27/20 12:02 MW [id number] 02/27/20 12:13 MW 02/27/20 12:02 Wound Center Nurse 2 [Procedure/Treatment] right great toe plantar -Time 12:02 -Correct Patient Yes -Correct Side, Site, Position Yes -Correct Procedure Yes -Procedure Performed Yes -Type of Procedure Debridement -Clinical Debridement Subcutaneous -Post Debridement Size (cm) - Length 4.3 -Post Debridement Size (cm) - Width 3.5 -Post Debridement Size (cm) - Depth 0.1 -Total Square Cm 15.05 -Wound/Ulcer Outcome Not Healed -Ulcer Cleansing Rinsed/ Irrigated with Saline -Foul Odor after Cleansing No -Bioengineered Tissue No -Bleeding Controlled with Pressure -Offloading No -Treatment Response Procedure Tolerated Well [See Physician Procedure note for Specifics] Pain Scale: 0-10 Numeric [Pain] -Is Patient Pain Free? Yes Musculoskeletal: No Tenderness to Palpation of Joints or Extremities Lymphatic: No Cervical, Supraclavicular, or Inguinal Adenopathy Neurological: Cranial nerves II-XII grossly intact, Neuro grossly intact Psych/Mental Status: Normal Affect, Appropriate Debridement Note Post-Debridement Measurements/Treatment WC - Nurse 2 - General Ulcer CM Notes Start: 02/27/20 11:13 Freq: Status: Active Protocol: Activity Type Activity Date Activity User E-Sign Co-Sign Detail Recorded Client Recorded Date Recorded By Document 02/27/20 12:02 MW [id number] 02/27/20 12:13 MW 02/27/20 12:02 Wound Center Nurse 2 right great toe plantar -Time 12:02 -Correct Patient Yes -Correct Side, Site, Position Yes -Correct Procedure Yes -Procedure Performed Yes -Type of Procedure Debridement -Clinical Debridement Subcutaneous -Post Debridement Size (cm) - Length 4.3 -Post Debridement Size (cm) - Width 3.5 -Post Debridement Size (cm) - Depth 0.1 -Total Square Cm 15.05 -Wound/Ulcer Outcome Not Healed -Ulcer Cleansing Rinsed/ Irrigated with Saline -Foul Odor after Cleansing No -Bioengineered Tissue No -Bleeding Controlled with Pressure -Offloading No -Treatment Response Procedure Tolerated Well Pain Scale: 0-10 Numeric Is Patient Pain Free? Yes Wound debrided: Right great toe ulcer Type of Debridement: Excisional debridement Anesthesia Used: 5% Lidocaine Gel Depth: in the subcutaneous layer Percentage of wound debrided: 100 Instrument Used: 7mm curette, #15 blade Tissue Removed: deVitalized tissue Amount of bleeding with debridement: None Bleeding Controlled with: Compression and gauze Patient tolerated procedure well Assessment/Plan Aerobic and anaerobic cultures obtained from the toe Active Problems Diabetic foot ulcer with osteomyelitis (Acute) Diabetic foot ulcer associated with diabetes mellitus due to underlying condition (Acute) Assessment: Diabetes type 2 treated as a 1 uncontrolled. Right great toe necrosis to the outer tissue Plan: For to the emergency room for admission for IV PICC line and vascular follow-up and podiatry.
[2020-03-05 08:22] VITALS: RESP 20; TEMP 36.9; BMI 41.1
--- NOTE | 2020-03-05 09:01 | PCM.WC.PN ---
(1) Gangrene Status: Acute Current Visit: Yes Code(s): I96 - Gangrene, not elsewhere classified (2) Type 2 diabetes mellitus with diabetic polyneuropathy Status: Chronic Current Visit: Yes Qualifiers: Diabetes mellitus adjunct faculty for medical terminology insulin use: with adjunct faculty for medical terminology use Qualified Code(s): E11.42 - Type 2 diabetes mellitus with diabetic polyneuropathy; Z79.4 - long term (current) use of insulin Code(s): E11.42 - Type 2 diabetes mellitus with diabetic polyneuropathy (3) Cellulitis of right foot Status: Chronic Current Visit: Yes Code(s): L03.115 - Cellulitis of right lower limb (4) Ulcer of right foot with fat layer exposed Status: Chronic Current Visit: Yes Code(s): L97.512 - Non-pressure chronic ulcer of other part of right foot with fat layer exposed Type of Wound Date of Service: 03/05/20 Chief Complaint: Right great toe ulcer infected History of Wound: 59-year-old white male with diabetes and other comorbidities was seen today for right foot ulcer with black discoloration and infection. He was referred to the emergency room last week and was started on doxycycline and an updated culture was obtained. He also had toe x-rays performed and some lab work. He was previously seen by a electrical intern in [place] and would like to follow-up locally at this time. He wears an offloading shoe and tries put weight on his heel however admits he has been working 100 hours a week. The onset of this toe ulcer was 2 weeks ago. His shoe was removed and his significant other noticed his toe was black and a small stone fell out of his shoe at that time. He denies progressive claudication or rest pain to the foot. He relates he also has ankle pain and swelling. He denies fever, chill, nausea, vomiting today. Progress of Wound: Stable and current infection treatment noted - Physical Exam Vital Signs Temp Pulse Resp BP 98.4 F 92 20 H 151/87 H 03/05/20 08:22 02/27/20 11:21 03/05/20 08:22 02/27/20 11:21 General: Alert, Oriented x3, Cooperative, No apparent distress HEENT: Atraumatic Extremities: No cyanosis, Capillary Refill Less than 3 Seconds, No Calf Tenderness - Negative Ida and Maldonado sign bilateral, Diminished Peripheral Pulses, Edema - Mild right lower extremity, Tenderness - Pain with ulcer manipulation. No bogginess or fluctuance or crepitus on palpation right foot ankle or leg Skin: Ulcer/ Wound - No purulence on expression no erythema or streaking. There is an odor noted upon debridement of the gangrenous. There is a gangrenous To the distal and plantar aspect of the hallux with subcutaneous fat tissue exposed upon removal of loose tissue. There is no muscle or bone probing or visualized. The adjacent skin is hairless and atrophic Wound Measurements and Assessment WC - Nurse 1 - General Ulcer Measurement Start: 02/27/20 11:13 Freq: Status: Active Protocol: Activity Type Activity Date Activity User E-Sign Co-Sign Detail Recorded Client Recorded Date Recorded By Document 03/05/20 08:22 DV [id number] 03/05/20 08:28 DV 03/05/20 08:22 Wound Center Nurse 1 [Ulcer Assessment] right great toe plantar -Combined with other wound No -Current Size (cm) - Length 4.5 -Current Size (cm) - Width 4.0 -Current Size (cm) - Depth 0.1 -Total Square Cm 18.00 -Photo Taken No -Epithelialization None Present -Tunneling No -Undermining/Tunneling No -Circular Undermining No -Classification - Thickness Full Thickness without Exposed Support Structure -Exudate Amt Medium -Exudate Type Serous -Wound Margin Indistinct, Non -Visible -Granulation Amt None Present (0 %) -Granulation Quality N/A -Slough/Fibrin Yes -Necrosis Amt Large (67-100%) -Necrotic Tissue Type Adherent Slough -Structure Exposed None/Limited to Skin Breakdown -Texture (Belle-wound Skin Appearance) Assessed, Localized Edema ,Scarring -Moisture (Belle-wound Skin Appearance Assessed, ) Weeping -Color (Belle-wound Skin Appearance) Assessed, Erythema, Hemosiderin Staining -Temperature (Belle-wound Skin No Abnormality Appearance) (Pt Warm) -Tenderness on Palpation (Belle-wound No Skin Appearance) -Ulcer Cleansing Wound Cleanser -Foul Odor after Cleansing No -Anesthetic Used 4% Lidocaine Solution WC - Nurse 2 - General Ulcer CM Notes Start: 02/27/20 11:13 Freq: Status: Active Protocol: Activity Type Activity Date Activity User E-Sign Co-Sign Detail Recorded Client Recorded Date Recorded By Document 03/05/20 08:37 [id number] 03/05/20 08:41 03/05/20 08:37 Wound Center Nurse 2 [Procedure/Treatment] -Time 08:41 -Correct Patient Yes -Correct Side, Site, Position Yes -Correct Procedure Yes -Procedure Performed Yes -Type of Procedure Debridement -Clinical Debridement Subcutaneous -Post Debridement Size (cm) - Length 3.4 -Post Debridement Size (cm) - Width 3.6 -Post Debridement Size (cm) - Depth 0.3 -Total Square Cm 12.24 -Wound/Ulcer Outcome Not Healed -Ulcer Cleansing Rinsed/ Irrigated with Saline -Foul Odor after Cleansing No -Bioengineered Tissue No -Bleeding Controlled with Pressure -Offloading Yes -Type of Offloading Surgical Shoe -Treatment Response Procedure Tolerated Well [See Physician Procedure note for Specifics] Pain Scale: 0-10 Numeric [Pain] -Is Patient Pain Free? Yes Musculoskeletal: Muscle Wasting, Tenderness - Pain with ulcer manipulation and also diffuse to ankle. No laxity or crepitus noted with passive range of motion of the foot or ankle, - - Decreased on first metatarsal phalangeal joint range of motion Neurological: - - Lack of epicritic sensation light touch is consistent with neuropathy status Psych/Mental Status: Normal Affect, Appropriate Debridement Note Post-Debridement Measurements/Treatment WC - Nurse 2 - General Ulcer CM Notes Start: 02/27/20 11:13 Freq: Status: Active Protocol: Activity Type Activity Date Activity User E-Sign Co-Sign Detail Recorded Client Recorded Date Recorded By Document 02/27/20 12:02 [id number] 02/27/20 12:13 Document 03/05/20 08:37 [id number] 03/05/20 08:41 02/27/20 03/05/20 12:02 08:37 Wound Center Nurse 2 right great toe plantar -Time 12:02 08:41 -Correct Patient Yes Yes -Correct Side, Site, Position Yes Yes -Correct Procedure Yes Yes -Procedure Performed Yes Yes -Type of Procedure Debridement Debridement -Clinical Debridement Subcutaneous Subcutaneous -Post Debridement Size (cm) - Length 4.3 3.4 -Post Debridement Size (cm) - Width 3.5 3.6 -Post Debridement Size (cm) - Depth 0.1 0.3 -Total Square Cm 15.05 12.24 -Wound/Ulcer Outcome Not Healed Not Healed -Ulcer Cleansing Rinsed/ Rinsed/ Irrigated with Irrigated with Saline Saline -Foul Odor after Cleansing No No -Bioengineered Tissue No No -Bleeding Controlled with Pressure Pressure -Offloading No Yes -Type of Offloading Surgical Shoe -Treatment Response Procedure Procedure Tolerated Well Tolerated Well Pain Scale: 0-10 Numeric Is Patient Pain Free? Yes Yes Wound debrided: hallux Laterality: Right Wound Grade/Stage: grade 1 Type of Debridement: Excisional debridement Anesthesia Used: 5% Lidocaine Gel Depth: in the subcutaneous layer Percentage of wound debrided: 100 Instrument Used: #15 blade, Forceps Tissue Removed: fibrous, devitalized subcutaneous, biofilm, slough, eschar Severity: Fat Layer Exposed Amount of bleeding with debridement: Mild Bleeding Controlled with: Pressure Patient tolerated procedure well Assessment/Plan Active Problems Type 2 diabetes mellitus with diabetic polyneuropathy (Chronic) Cellulitis of right foot (Chronic) Diabetic foot ulcer with osteomyelitis (Acute) Diabetic foot ulcer associated with diabetes mellitus due to underlying condition (Acute) Gangrene (Acute) Ulcer of right foot with fat layer exposed (Chronic) Assessment: Diabetes type 2 treated as a 1 uncontrolled. Right great toe necrosis /gangrene to the outer tissue. Ulcer right hallux fat layer exposed. Cellulitis right foot. Hallux limitus Plan: I reviewed and discussed his case. His prior chart review from his last wound center visit and emergency room visit were also reviewed. His diagnostic data was reviewed and he did not have leukocytosis. His sedimentation rate was 44. His hemoglobin A1c from a couple years ago with elevated and is has not been recently checked. He also does not have any apparent kidney disorders. His toe x-ray is did not demonstrate any acute fracture dislocation or soft tissue emphysema or foreign body. I recommend updating his lab work to include a hemoglobin A1c. I also recommended and ordered an ankle x-ray due to his discomfort at this site. To heel weightbearing surgical shoe which she already has. I also recommend nutritional supplementation and a prescription for Tripp was provided. To improve glucose management. His microbiology reports were reviewed and it appears he is growing out for bacteria. A refill for levofloxacin was provided. I also ordered a prescription for Augmentin and he was advised on safe and proper use. Due to his high risk status and previous infection history I do recommend a referral to infectious disease with Dr. Pike. He relates he is able to drive to an outside clinic and will be provided with the contact information. Subcutaneous excisional debridement was performed as noted in the clinical panel. He is advised to change his dressing daily with Betadine, gauze and gauze roll. His spouse is able to help with this. I answered all the. To follow-up with the wound healing center in 1 week. I advised to call sooner if he has any progressive infection.
--- NOTE | 2020-03-05 09:40 | RAD_ITS ---
STUDY: X-RAY - RIGHT ANKLE REASON FOR EXAM: Male, 59 years old. SWELLING TO RIGHT ANKLE S/P FOOT SURGERY TECHNIQUE: 3 view(s) of the ankle. COMPARISON: None. FINDINGS: Normal visualized distal tibia and fibula. Normal medial and lateral malleoli. Normal tibiotalar articulation and ankle mortise. Small plantar spur. The visualized subtalar, talonavicular, calcaneocuboid and tarsal articulations are normal. Soft tissue swelling overlying the medial malleolus. Vascular calcification. RAD/Ankle min 3 Views IMPRESSION: Medial soft tissue swelling. Electronically Signed: Jesus Stallworth, at 15:46 EDT , Service support ,
[2020-03-05 10:15] LABS: Hemoglobin A1c 11.3 % (3.8-5.6)
[2020-03-12 13:40] VITALS: BP 148/69; PULSE 85; RESP 20; TEMP 36.6; BMI 41.1
--- NOTE | 2020-03-12 15:05 | PCM.WC.PN ---
(1) Gangrene Status: Acute Current Visit: Yes Code(s): I96 - Gangrene, not elsewhere classified (2) Type 2 diabetes mellitus with diabetic polyneuropathy Status: Chronic Current Visit: Yes Qualifiers: Diabetes mellitus termite control representative insulin use: with termite control representative use Qualified Code(s): E11.42 - Type 2 diabetes mellitus with diabetic polyneuropathy; Z79.4 - salvage determiner (current) use of insulin Code(s): E11.42 - Type 2 diabetes mellitus with diabetic polyneuropathy (3) Cellulitis of right foot Status: Chronic Current Visit: Yes Code(s): L03.115 - Cellulitis of right lower limb (4) Ulcer of right foot with fat layer exposed Status: Chronic Current Visit: Yes Code(s): L97.512 - Non-pressure chronic ulcer of other part of right foot with fat layer exposed (5) Malnutrition Status: Acute Current Visit: Yes Code(s): E46 - Unspecified protein-calorie malnutrition (6) Foot osteomyelitis, right Status: Acute Current Visit: Yes Code(s): M86.9 - Osteomyelitis, unspecified Type of Wound Date of Service: 03/12/20 Chief Complaint: Right great toe ulcer infected History of Wound: 59-year-old white male with diabetes and other comorbidities was seen today for right foot ulcer. He had gangrene and this is being treated for an infection at this time. His antibiotics were updated to Augmentin and levofloxacin. He is scheduled to see infectious disease today, Dr. Pike. He denies fever, chill, nausea, vomiting, diarrhea or other side effects since he started on antibiotics. He is continued ankle discomfort and swelling in the right side and reports his legs never been this swollen. Progress of Wound: Stable and current infection treatment noted - Physical Exam Vital Signs Temp Pulse Resp BP 98 F 85 20 H 148/69 H 03/12/20 13:40 03/12/20 13:40 03/12/20 13:40 03/12/20 13:40 General: Alert, Oriented x3, Cooperative, No apparent distress HEENT: Atraumatic Extremities: No cyanosis, Capillary Refill Less than 3 Seconds, No Calf Tenderness, Diminished Peripheral Pulses, Edema Skin: Ulcer/ Wound - no purulence, no erythema, no streaking noted. there is decreased odor. The distal hallux has lack of capillary brisk time noted. no eschar noted. the base of the ulcer is fibrous, devitalized tissue plug. atrophic and thin skin noted to remainder of foot. no other ulcers Wound Measurements and Assessment WC - Nurse 1 - General Ulcer Measurement Start: 02/27/20 11:13 Freq: Status: Active Protocol: Activity Type Activity Date Activity User E-Sign Co-Sign Detail Recorded Client Recorded Date Recorded By Document 03/12/20 13:40 BULL [id number] 03/12/20 13:46 DL 03/12/20 13:40 Wound Center Nurse 1 [Ulcer Assessment] right great toe plantar -Current Size (cm) - Length 3.5 -Current Size (cm) - Width 3 -Current Size (cm) - Depth 0.1 -Total Square Cm 10.5 -Photo Taken No -Exudate Amt Medium -Exudate Type Serosanguineous -Wound Margin Thickened -Granulation Amt Small (1-33%) -Granulation Quality [place] -Necrosis Amt Large (67-100%) -Necrotic Tissue Type Adherent Slough -Structure Exposed N/A -Texture (Belle-wound Skin Appearance) Callus -Moisture (Belle-wound Skin Appearance No Abnormality ) -Color (Belle-wound Skin Appearance) No Abnormality -Temperature (Belle-wound Skin No Abnormality Appearance) (Pt Warm) -Ulcer Cleansing Wound Cleanser -Foul Odor after Cleansing No -Anesthetic Used 4% Lidocaine Solution - Nurse 2 - General Ulcer CM Notes Start: 02/27/20 11:13 Freq: Status: Active Protocol: Activity Type Activity Date Activity User E-Sign Co-Sign Detail Recorded Client Recorded Date Recorded By Document 03/12/20 14:06 [id number] 03/12/20 14:10 03/12/20 14:06 Wound Center Nurse 2 [Procedure/Treatment] -Time 14:07 -Correct Patient Yes -Correct Side, Site, Position Yes -Correct Procedure Yes -Procedure Performed Yes -Type of Procedure Debridement -Clinical Debridement Subcutaneous -Post Debridement Size (cm) - Length 3.5 -Post Debridement Size (cm) - Width 3.1 -Post Debridement Size (cm) - Depth 1.0 -Total Square Cm 10.85 -Wound/Ulcer Outcome Not Healed -Ulcer Cleansing Rinsed/ Irrigated with Saline -Foul Odor after Cleansing No -Bioengineered Tissue No -Bleeding Controlled with Pressure -Offloading Yes -Type of Offloading Surgical Shoe -Treatment Response Procedure Tolerated Well [See Physician Procedure note for Specifics] Pain Scale: 0-10 Numeric [Pain] -Is Patient Pain Free? Yes Musculoskeletal: No Tenderness to Palpation of Joints or Extremities, Muscle Wasting, - - No crepitus, bogginess, or fluctuance on palpation to the right lower extremity. Compartments remain soft right Lower extremity. Neurological: - - lack of epicritic sensation via light touch noted Psych/Mental Status: Normal Affect, Appropriate Debridement Note Post-Debridement Measurements/Treatment WC - Nurse 2 - General Ulcer CM Notes Start: 02/27/20 11:13 Freq: Status: Active Protocol: Activity Type Activity Date Activity User E-Sign Co-Sign Detail Recorded Client Recorded Date Recorded By Document 02/27/20 12:02 MW [id number] 02/27/20 12:13 MW Document 03/05/20 08:37 [id number] 03/05/20 08:41 JF Document 03/12/20 14:06 [id number] 03/12/20 14:10 02/27/20 03/05/20 03/12/20 12:02 08:37 14:06 Wound Center Nurse 2 right great toe plantar -Time 12:02 08:41 14:07 -Correct Patient Yes Yes Yes -Correct Side, Site, Position Yes Yes Yes -Correct Procedure Yes Yes Yes -Procedure Performed Yes Yes Yes -Type of Procedure Debridement Debridement Debridement -Clinical Debridement Subcutaneous Subcutaneous Subcutaneous -Post Debridement Size (cm) - Length 4.3 3.4 3.5 -Post Debridement Size (cm) - Width 3.5 3.6 3.1 -Post Debridement Size (cm) - Depth 0.1 0.3 1.0 -Total Square Cm 15.05 12.24 10.85 -Wound/Ulcer Outcome Not Healed Not Healed Not Healed -Ulcer Cleansing Rinsed/ Rinsed/ Rinsed/ Irrigated with Irrigated with Irrigated with Saline Saline Saline -Foul Odor after Cleansing No No No -Bioengineered Tissue No No No -Bleeding Controlled with Pressure Pressure Pressure -Offloading No Yes Yes -Type of Offloading Surgical Shoe Surgical Shoe -Treatment Response Procedure Procedure Procedure Tolerated Well Tolerated Well Tolerated Well Pain Scale: 0-10 Numeric Is Patient Pain Free? Yes Yes Yes Wound debrided: plantar hallux Laterality: Right Wound Grade/Stage: grade 3 Type of Debridement: Excisional debridement Anesthesia Used: 5% Lidocaine Gel Depth: in the subcutaneous layer Percentage of wound debrided: 100 Instrument Used: #15 blade Tissue Removed: fibrous, devitalized subcutaneous, biofilm, slough Severity: Fat Layer Exposed Amount of bleeding with debridement: Mild Bleeding Controlled with: Pressure Patient tolerated procedure well Assessment/Plan Clinical Impression(s) from Imaging Studies Ankle X-Ray 03/05/20 09:40 IMPRESSION: Medial soft tissue swelling. Electronically Signed: Jesus Stallworth, at 15:46 EDT , Service support , Active Problems Type 2 diabetes mellitus with diabetic polyneuropathy (Chronic) Cellulitis of right foot (Chronic) Diabetic foot ulcer with osteomyelitis (Acute) Diabetic foot ulcer associated with diabetes mellitus due to underlying condition (Acute) Gangrene (Acute) Malnutrition (Acute) Foot osteomyelitis, right (Acute) Ulcer of right foot with fat layer exposed (Chronic) Assessment: Diabetes, uncontrolled (hemoglobin A1C is over 11%). Right great toe necrosis /gangrene to the outer tissue. Ulcer right hallux fat layer exposed. osteomyelitis work up in process. Cellulitis right foot addressed with oral antibiotics. Hallux limitus Plan: I reviewed and discussed his case. Subcutaneous excisional debridement was performed as noted in the clinical panel. To continue to change dressing with Betadine, gauze and gauze roll. His spouse is able to help with this. His diagnostic data was reviewed and he did not have leukocytosis. His sedimentation rate was 44. His hemoglobin A1c was recently checked and was over 11%. His toe x-ray is did not demonstrate any acute fracture dislocation or soft tissue emphysema or foreign body. His recent ankle x-ray did not demonstrate any fracture, dislocation, radiographic evidence of Charcot, soft tissue emphysema or foreign body. Significant small vessel calcification is seen. To heel weightbearing in the surgical shoe is recommended; he already has this. To avoid driving or any activity that continues to place pressure on this ulcer site. Compliance was discussed which has been a challenge for him. I also recommend nutritional supplementation and a prescription for Tripp was provided. To improve glucose management. We discussed adequate protein intake and I answered his questions. I recommended eating real whole food diet to provide his body with the appropriate nutrients to heal his ulcer. I recommended a rim roller operator consultation to help apply this on a daily basis. He is amendable to proceed. His microbiology reports were reviewed and it appears he has multi-organism growth. To continue on Augmentin and levofloxacin. He was seen by infectious disease today as well. We will have a concern of deeper tissue infection and potentially osteomyelitis. We discussed wound care and antibiotics first hyperbaric oxygen versus amputation indications and treatment options. The patient will proceed forward with osteomyelitis work-up at this time with an MRI. This was ordered. He understands he is at continued risk of limb loss and his success is compromised by his medical instability. I answered all his questions. To follow-up with the wound healing center in 1 week. I advised to call sooner if he has any progressive infection.
--- NOTE | 2020-03-12 16:06 | PCM.PN.ID ---
Patient Problems: Active and Suspected Problems Diabetic foot ulcer with osteomyelitis (Acute) Diabetic foot ulcer associated with diabetes mellitus due to underlying condition (Acute) Gangrene (Acute) Malnutrition (Acute) Foot osteomyelitis, right (Acute) Subjective: No fever, no n/v/d on on po abx. Some leg swelling. Has not been staying off foot. - Physical Exam Vitals/I&O's: Vital Signs Temp Pulse Resp BP 98 F 85 20 H 148/69 H 03/12/20 13:40 03/12/20 13:40 03/12/20 13:40 03/12/20 13:40 Oxygen Delivery Method Room Air Weight: 122.708 kg Body Mass Index (BMI) 41.1 Finger Stick Blood Glucose 82 General: Alert, Cooperative, No apparent distress Lungs: Clear to auscultation, Normal air movement Cardiovascular: Regular rate, Regular Rhythm Abdomen: Soft, Non Tender, Non-Distended Skin: Ulcer/ Wound - R 1st toe gangrene, minimal surrounding redness Microbiology Past 72 Hours 02/27/20 12:10 Wound Abcess - Toe Gram Stain - Final 02/27/20 12:10 Wound Abcess - Toe Wound Culture - Final Citrobacter braakii Serratia marcescens Staphylococcus aureus Enterococcus faecalis 02/27/20 12:10 Wound Abcess - Toe Anaerobic Culture - Final No anaerobic bacteria isolated. Medical Necessity - Tobacco Use Smoking Status: Former smoker Route of nutrition/ use of supplements: [] Nutritional Intake: [] IV Site: [] White Catheter: [] - Assessment/Plan Antibiotics: [] Assessment/Plan: [] Active and Suspected Problems Diabetic foot ulcer with osteomyelitis (Acute) Diabetic foot ulcer associated with diabetes mellitus due to underlying condition (Acute) Gangrene (Acute) Malnutrition (Acute) Foot osteomyelitis, right (Acute) Suspected R 1st toe osteo - agree with MRI. Wound cx 02/26 with citro, serratia, mssa, and enterococcus. Vascular workup pending. Will need close glucose control. Will extend course of levaquin/augmentin. Concern he may need toe amputation given extent of involvement. Return to clinic in 1 week. D/w Dr. Abarca.
--- NOTE | 2020-03-12 16:23 | WC ---
Addendum entered by Gustavo Duenas 03/14/20 10:34: No Precert is required for Vascular lab study Call Ref# [id number] Original Note: No precertification is required for MRI Call Ref# [id number]
--- NOTE | 2020-03-19 09:51 | ART_ITS ---
Reason For Study: Rt Hallux Ulcer Procedure A bilateral lower extremity continuous wave Doppler with analog waveform analysis,segmental pressures,and ankle brachial indexes without exercise. Left Segmental Pressures Left brachial= 141mmHg. Left posterior tibial artery = >254mmHg. Left dorsalis pedis artery = >254mmHg. Left digit = 105 mmHg. The left ankle is noncompressible. Right Segmental Pressures Right brachial= 127mmHg. Right posterior tibial artery = >254mmHg. Right dorsalis pedis artery = >254mmHg. Right digit = 56 mmHg. The right ankle is noncompressible. Indices The right ankle brachial index by the posterior tibial artery is NC. The right ankle brachial index by the dorsalis pedis is NC. The right digital-brachial index is 0.40. The left ankle brachial index by the posterior tibial artery is NC. The left ankle brachial index by the dorsalis pedis is NC. The left digital-brachial index is 0.74. Interpretation Summary Biphasic Doppler waveforms are noted at ankle level on the right. Triphasic Doppler waveforms are noted at ankle level on the left. Pulse-volume recordings appear satisfactory at low-thigh, calf, ankle, and digital levels bilaterally. Resting ankle-brachial indices could not be determined on either side due to the non-compressibility of the vasculature at ankle level bilaterally. The right digital-brachial index is moderately diminished. The left digital-brachial index is normal. There is evidence of arterial calcification at ankle level bilaterally. Arterial flow appears to be relatively normal at ankle level bilaterally, though the inability to determine the ankle-brachial indices prevents full assessment. There is moderate impairment of arterial flow at digital level on the right. Arterial flow appears normal at digital level on the left. Ordering Physician: Parris Abarca Referring Physician: Shoshana Medina Performed By: Elizabeth Almonte RDCS/RVT
== END 2020-03-18 23:59 ==
LOC: WC 09:00
PROVIDERS: PCP Family Medicine; Referring Provider Nurse Practitioner; Visit Provider Podiatrist
DX: E11.621 Type 2 diabetes mellitus with foot ulcer (principal); E11.65 Type 2 diabetes mellitus with hyperglycemia; E11.42 Type 2 diabetes mellitus with diabetic polyneuropathy; E66.9 Obesity, unspecified; Z72.0 Tobacco use; Z79.4 Long term (current) use of insulin; E11.52 Type 2 diabetes mellitus with diabetic peripheral angiopathy with gangrene; L97.513 Non-pressure chronic ulcer of other part of right foot with necrosis of muscle; L03.115 Cellulitis of right lower limb; M20.5X1 Other deformities of toe(s) (acquired), right foot
CPT/HCPCS: 11042; 36415; 73610; 83036; 87070; 87075; 87077; 87186; 87205; 99213; G0463

== ENCOUNTER 2020-04-10 15:00 | Outpatient (RCR) | payer BC, SELFPAY ==
[2020-03-12 16:08] VITALS: BMI 39.9
[2020-03-19 00:35] VITALS: BP 148/69; PULSE 85; RESP 20; TEMP 36.6
[2020-03-19 08:57] VITALS: BP 135/72; PULSE 84; RESP 20; TEMP 36.1
--- NOTE | 2020-03-19 09:21 | PN.PCM_ITS ---
(1) Osteomyelitis Status: Resolved Current Visit: Yes Qualifiers: Code(s): M86.9 - Osteomyelitis, unspecified (2) Chronic ulcer of right foot with necrosis of bone Status: Chronic Current Visit: Yes Code(s): L97.514 - Non-pressure chronic ulcer of other part of right foot with necrosis of bone (3) Type 2 diabetes mellitus with diabetic polyneuropathy Status: Chronic Current Visit: No Qualifiers: Code(s): E11.42 - Type 2 diabetes mellitus with diabetic polyneuropathy (4) Delayed wound healing Status: Chronic Current Visit: No Code(s): T14.8XXD - Other injury of unspecified body region, subsequent encounter (5) PVD (peripheral vascular disease) Status: Chronic Current Visit: No Code(s): I73.9 - Peripheral vascular disease, unspecified Type of Wound Date of Service: 03/19/20 Chief Complaint: Right great toe ulcer infected History of Wound: 59-year-old white male with diabetes and other comorbidities was seen today for right foot ulcer. He had gangrene and this is being treated for an infection at this time. His antibiotics were updated to Augmentin and levofloxacin. He is also been seen by infectious disease specialist, Dr. Pike. He denies fever, chill, nausea, vomiting, diarrhea or other side effects since he started on antibiotics. He is continued ankle discomfort and swelling in the right side and reports his legs never been this swollen. He has discomfort with walking. His MRI is scheduled for later today. He is with his daughter today. Progress of Wound: Progressive worsening with exposed deep tissue now - Physical Exam Vital Signs Temp Pulse Resp BP 97 F L 84 20 H 135/72 H 03/19/20 08:57 03/19/20 08:57 03/19/20 08:57 03/19/20 08:57 General: Alert, Oriented x3, Cooperative, No apparent distress Extremities: No cyanosis, Capillary Refill Less than 3 Seconds, No Calf Tenderness - Negative Ida and Maldonado sign right, Diminished Peripheral Pulses, Edema Skin: Ulcer/ Wound - There is continued fibrous devitalized tissue to the plantar right hallux. There is no longer any eschar and the odor has resolved. There is devitalized muscle and fascial tissue noted that is debrided and now there is exposed plantar aspect of the distal phalanx and this is white and firm to touch. No other soft tissue or skin discontinuity is noted Wound Measurements and Assessment WC - Nurse 1 - General Ulcer Measurement Start: 03/19/20 08:57 Freq: Status: Active Protocol: Activity Type Activity Date Activity User E-Sign Co-Sign Detail Recorded Client Recorded Date Recorded By Document 03/19/20 08:57 BULL [id number] 03/19/20 09:04 DL 03/19/20 08:57 Wound Center Nurse 1 [Ulcer Assessment] right great toe plantar -Current Size (cm) - Length 2.6 -Current Size (cm) - Width 2.8 -Current Size (cm) - Depth 0.2 -Total Square Cm 7.28 -Photo Taken No -Exudate Amt Small -Exudate Type Serosanguineous -Wound Margin Distinct, Outline Attached -Granulation Amt Small (1-33%) -Granulation Quality [place] -Necrosis Amt Large (67-100%) -Necrotic Tissue Type Adherent Slough -Structure Exposed N/A -Texture (Belle-wound Skin Appearance) Localized Edema ,Scarring -Moisture (Belle-wound Skin Appearance Dry/Scaly ) -Color (Belle-wound Skin Appearance) No Abnormality -Temperature (Belle-wound Skin No Abnormality Appearance) (Pt Warm) -Foul Odor after Cleansing No -Anesthetic Used 4% Lidocaine Solution [Edema Assessment] -Right Calf (cm) 42.5 -Right Ankle (cm) 24.8 - Nurse 2 - General Ulcer CM Notes Start: 03/19/20 08:57 Freq: Status: Active Protocol: Activity Type Activity Date Activity User E-Sign Co-Sign Detail Recorded Client Recorded Date Recorded By Document 03/19/20 09:11 DL [id number] 03/19/20 09:17 DL 03/19/20 09:11 Wound Center Nurse 2 [Procedure/Treatment] right great toe plantar -Time 09:12 -Correct Patient Yes -Correct Side, Site, Position Yes -Correct Procedure Yes -Procedure Performed Yes -Type of Procedure Debridement -Clinical Debridement Muscle -Post Debridement Size (cm) - Length 2.5 -Post Debridement Size (cm) - Width 2.2 -Post Debridement Size (cm) - Depth 0.8 -Total Square Cm 5.50 -Wound/Ulcer Outcome Not Healed -Ulcer Cleansing Rinsed/ Irrigated with Saline -Foul Odor after Cleansing No -Bioengineered Tissue No -Bleeding Controlled with Pressure -Offloading Yes -Type of Offloading Surgical Shoe -Treatment Response Procedure Tolerated Well [See Physician Procedure note for Specifics] Pain Scale: 0-10 Numeric [Pain] -Is Patient Pain Free? Yes Musculoskeletal: No Tenderness to Palpation of Joints or Extremities, Muscle Wasting, - - No bogginess or fluctuance on palpation. Neurological: - - Lack of normal epicritic sensation is consistent with neuropathy status Psych/Mental Status: Normal Affect, Appropriate Debridement Note Post-Debridement Measurements/Treatment WC - Nurse 2 - General Ulcer CM Notes Start: 03/19/20 08:57 Freq: Status: Active Protocol: Activity Type Activity Date Activity User E-Sign Co-Sign Detail Recorded Client Recorded Date Recorded By Document 03/19/20 09:11 DL [id number] 03/19/20 09:17 DL 03/19/20 09:11 Wound Center Nurse 2 right great toe plantar -Time 09:12 -Correct Patient Yes -Correct Side, Site, Position Yes -Correct Procedure Yes -Procedure Performed Yes -Type of Procedure Debridement -Clinical Debridement Muscle -Post Debridement Size (cm) - Length 2.5 -Post Debridement Size (cm) - Width 2.2 -Post Debridement Size (cm) - Depth 0.8 -Total Square Cm 5.50 -Wound/Ulcer Outcome Not Healed -Ulcer Cleansing Rinsed/ Irrigated with Saline -Foul Odor after Cleansing No -Bioengineered Tissue No -Bleeding Controlled with Pressure -Offloading Yes -Type of Offloading Surgical Shoe -Treatment Response Procedure Tolerated Well Pain Scale: 0-10 Numeric Is Patient Pain Free? Yes Wound debrided: plantar hallux Laterality: Right Wound Grade/Stage: grade 3 Type of Debridement: Excisional debridement Anesthesia Used: 5% Lidocaine Gel Depth: in the subcutaneous layer Percentage of wound debrided: 100 Instrument Used: #15 blade Tissue Removed: fibrous, devitalized subcutaneous, biofilm, slough Severity: Fat Layer Exposed Amount of bleeding with debridement: Mild Bleeding Controlled with: Pressure Patient tolerated procedure well Assessment/Plan Active Problems Chronic ulcer of right foot with necrosis of bone (Chronic) Assessment: Diabetes, uncontrolled (hemoglobin A1C is over 11%). Right great toe necrosis /gangrene to the outer tissue. Ulcer right hallux bone layer exposed ([place]um[place] grade 3). osteomyelitis work up in process. Cellulitis right foot addressed with oral antibiotics. Hallux limitus Plan: I reviewed and discussed his case. Excisional debridement was performed as noted in the clinical panel including fascia/muscle. To continue to change dressing with Betadine, gauze and gauze roll. His diagnostic data was re viewed and he did not have leukocytosis. His sedimentation rate was 44. His hemoglobin A1c was recently checked and was over 11%. His toe x-ray did not demonstrate any acute fracture dislocation or soft tissue emphysema or foreign body. His recent ankle x-ray did not demonstrate any fracture, dislocation, radiographic evidence of Charcot, soft tissue emphysema or foreign body. Significant small vessel calcification is seen. To heel weightbearing in the surgical shoe is recommended; he already has this. To avoid driving or any activity that continues to place pressure on this ulcer site. He relates he will repetitively uses his forefoot for driving and he also often places his foot next to a heater. I recommended offloading this more aggressively with a cam walker boot with dual density offloading Plastizote liners. An order was provided he will get fitted for this device at the foot [facility] ankle center. So also immobilize his tender ankle and help him control his ankle edema as well. Compliance was discussed which has been a challenge for him. I also recommend nutritional supplementation and a prescription for Tripp was provided. To improve glucose management. We discussed adequate protein intake and I answered his questions. I recommended eating real whole food diet to provide his body with the appropriate nutrients to heal his ulcer. I recommended a float builder consultation to help apply this on a daily basis. He is scheduled to see a float builder within the next week. His microbiology reports were reviewed and it appears he has multi-organism growth. To continue on Augmentin and levofloxacin. He was seen by infectious disease as well. There is a concern of deeper tissue infection and potentially osteomyelitis. We discussed wound care and antibiotics first hyperbaric oxygen versus amputation indications and treatment options. The patient will proceed forward with osteomyelitis work-up at this time with an MRI. This is scheduled for this afternoon and will be reviewed upon completion. He understands he is at continued risk of limb loss and his success is compromised by his medical instability. I also recommend updating his noninvasive vascular studies and this has been scheduled. I answered all his questions. To follow-up with the wound healing center in 1 week. I advised to call sooner if he has any progressive infection.
--- NOTE | 2020-03-19 10:59 | MRI_ITS ---
ACR Level 3 findings have been noted. An addendum which confirms receipt of the report will follow. STUDY: MRI RIGHT FOREFOOT WITHOUT CONTRAST REASON FOR EXAM: Open wound of right great toe for 5 weeks, evaluate osteomyelitis. TECHNIQUE: Standardized fat and water weighted pulse sequences were obtained in all 3 orthogonal planes. COMPARISON: Radiographs 10/29/2019. FINDINGS: Normal metatarsophalangeal joint of the hallux. There is cystic change of the tibial sesamoid (inversion recovery sagittal images 7-9) suggestive of sesamoiditis. Normal interphalangeal joint of the hallux. There is bone edema of the distal phalanx of the great toe (inversion recovery sagittal images 10-12) with corresponding decreased T1 bone marrow signal (T1 sagittal images 10-12) consistent with osteomyelitis. Normal medial and lateral heads of the flexor hallucis brevis tendons. Normal flexor and extensor hallucis longus tendons. Normal second through fourth metatarsophalangeal (MTP) joints. Normal interphalangeal joints of the second through fourth toes. Normal proximal, middle and distal phalanges of the second through fourth toes. There is an intermetatarsal neuroma of the third webspace (T1 series 6 images 19, 20) measuring 0.45 cm in transverse dimension. There is mild intermetatarsal bursitis of the first webspace (T2 series 7 images 18, 19). Normal flexor and extensor tendons of the second through fourth toes. There is amputation of the fifth digit at the level the proximal metatarsal diaphysis. There is partial fat replacement of the intrinsic muscles of the forefoot suggestive of peripheral neuropathy. There is an ulceration at the plantar aspect of the great toe. There is edema in the subcutis adipose space, especially at the dorsal aspect. There is no focal fluid collection to indicate soft tissue abscess. MRI/Lower Ext/No Jt/w/o IMPRESSION: Osteomyelitis of the distal phalanx of the great toe. Tibial sesamoiditis. Intermetatarsal neuroma of the third webspace. Mild intermetatarsal bursitis of the first webspace. Partial fat replacement of the intrinsic muscles of the forefoot suggestive of peripheral neuropathy. Electronically Signed: Torrey Joshua MD at 12:35 EDT Tel , Service support ,
--- NOTE | 2020-03-19 14:17 | PCM.PN.ID ---
Subjective: Feeling better, no fever, no n/v/d. Had MRI and vascular study this AM. - Physical Exam Vitals/I&O's: Vital Signs Temp Pulse Resp BP 97 F L 84 20 H 135/72 H 03/19/20 08:57 03/19/20 08:57 03/19/20 08:57 03/19/20 08:57 Weight: 264 kg Body Mass Index (BMI) 39.9 Finger Stick Blood Glucose 205 General: Alert, Cooperative, No apparent distress Lungs: Clear to auscultation, Normal air movement Cardiovascular: Regular rate, Regular Rhythm Abdomen: Soft, Non Tender, Non-Distended Extremities: Edema Skin: Ulcer/ Wound - R foot wrapped Medical Necessity - Tobacco Use Smoking Status: Former smoker Route of nutrition/ use of supplements: [] Nutritional Intake: [] IV Site: [] White Catheter: [] - Assessment/Plan Antibiotics: [] Assessment/Plan: [] R 1st toe osteo - MRI showed osteo and bone exposed per Dr. Abarca. Wound cx 02/26 with citro, serratia, mssa, and enterococcus. Will continue levaquin and augmentin for full 6 week course. Checking LFT, bmp, cbc, and esr now. Counseled re need for glucose control, staying off foot. Will follow in 2 weeks, d/w Dr. Abarca
[2020-03-19 15:43] LABS: Hematocrit 43.8 % (40-54); Hemoglobin 14.3 g/dL (13.0-16.5); Mean Corp Hgb Conc 32.6 g/dL (32-36); Mean Corpuscular Hgb 30.2 pg (27.0-32.0); Mean Corpuscular Volume 92.6 fL (80-94); Mean Platelet Vol. 9.6 fl (6.2-12.0); Platelet Count 202 K/mm3 (150-450); RBC Distribution Width CV 12.1 % (11.6-14.6); RBC Distribution Width SD 41.5 fl (35.1-43.9); Red Blood Count 4.73 M/mm3 (4.6-6.2); White Blood Count 6.6 K/mm3 (4.4-11.0)
[2020-03-19 16:29] LABS: Erythrocyte Sedimentation Rate 56 mm/hr (0-20)
[2020-03-19 16:36] LABS: AST(SGOT) 14 U/L (15-37); Alanine Aminotransfer ALT/SGPT 16 U/L (16-61); Albumin, Serum 3.5 g/dL (3.2-5.0); Alkaline Phosphatase 77 U/L (45-117); Anion Gap 6 (5-15); BUN 18 mg/dL (7-18); BUN/Creat Ratio 25.4 RATIO (10-20); Bilirubin, Direct 0.23 mg/dL (0.00-0.30); Chloride 104 mmol/L (98-107); Creatinine, Serum 0.71 mg/dL (0.70-1.30); EST Glomerular Filtration Rate 121 mL/min (>60); Est Glom Filt Rate - Afr Amer 147 mL/min (>60); Estimated Creatinine Clearance 111.06 ml/min; Globulin 4.1 g/dL (2.2-4.2); Glucose 118 mg/dL (74-106); Potassium 3.9 mmol/L (3.5-5.1); Protein, Total 7.6 g/dL (6.4-8.2); Sodium Level 138 mmol/L (136-145)
[2020-03-26 13:42] VITALS: BP 149/75; PULSE 89; RESP 16; TEMP 36.8; BMI 39.9
--- NOTE | 2020-03-26 14:26 | PN.PCM_ITS ---
(1) Osteomyelitis Status: Acute Qualifiers: Osteomyelitis location: foot Laterality: left Code(s): M86.9 - Osteomyelitis, unspecified (2) Chronic ulcer of right foot with necrosis of bone Status: Chronic Code(s): L97.514 - Non-pressure chronic ulcer of other part of right foot with necrosis of bone (3) Type 2 diabetes mellitus with diabetic polyneuropathy Status: Chronic Qualifiers: Code(s): E11.42 - Type 2 diabetes mellitus with diabetic polyneuropathy (4) Delayed wound healing Status: Chronic Code(s): T14.8XXD - Other injury of unspecified body region, subsequent encounter (5) PVD (peripheral vascular disease) Status: Chronic Code(s): I73.9 - Peripheral vascular disease, unspecified (6) Malnutrition Status: Chronic Code(s): E46 - Unspecified protein-calorie malnutrition Type of Wound Date of Service: 03/26/20 Chief Complaint: Right great toe ulcer infected History of Wound: 59-year-old white male with diabetes and other comorbidities was seen today for right foot ulcer. He had gangrene and this is being treated for an infection at this time. His antibiotics were updated to Augmentin and levofloxacin. He is also been seen by infectious disease specialist, Dr. Pike. He denies fever, chill, nausea, vomiting, diarrhea or other side effects since he started on antibiotics. He has discomfort with walking. He had a prior MRI which confirmed and suggested acute osteomyelitis. He relates he recently stopped working to take pressure off of the site now that his bone is exposed. Progress of Wound: Stabilizing - Physical Exam Vital Signs Temp Pulse Resp BP 98.2 F 89 16 149/75 H 03/26/20 13:42 03/26/20 13:42 03/26/20 13:42 03/26/20 13:42 General: Alert, Oriented x3, Cooperative, No apparent distress HEENT: Atraumatic Extremities: No cyanosis, Capillary Refill Less than 3 Seconds, No Calf Tenderness, Diminished Peripheral Pulses, Edema - Decreased right leg but still present Skin: Ulcer/ Wound - No purulence, erythema, streaking or gangrene noted today. The odor has resolved. The adjacent skin is hairless and atrophic. Peripheral callus is also decreased. The ulcer bed is granular and fibrous and there is no longer any visualized bone. There is still positive probe to bone noted Wound Measurements and Assessment WC - Nurse 1 - General Ulcer Measurement Start: 03/19/20 08:57 Freq: Status: Active Protocol: Activity Type Activity Date Activity User E-Sign Co-Sign Detail Recorded Client Recorded Date Recorded By Document 03/26/20 13:42 MW [id number] 03/26/20 13:49 MW 03/26/20 13:42 Wound Center Nurse 1 [Ulcer Assessment] right great toe plantar -Combined with other wound No -Current Size (cm) - Length 3.2 -Current Size (cm) - Width 2.6 -Current Size (cm) - Depth 0.3 -Total Square Cm 8.32 -Photo Taken No -Epithelialization None Present -Tunneling No -Undermining/Tunneling No -Circular Undermining No -Exudate Amt Medium -Exudate Type Serosanguineous -Wound Margin Distinct, Outline Attached -Granulation Amt Large (67-100%) -Granulation Quality Echo -Slough/Fibrin Yes -Necrosis Amt Small (1-33%) -Necrotic Tissue Type Adherent Slough -Structure Exposed N/A -Texture (Belle-wound Skin Appearance) Assessed -Moisture (Belle-wound Skin Appearance Assessed,Dry/ ) Scaly -Color (Belle-wound Skin Appearance) No Abnormality, Assessed -Temperature (Belle-wound Skin No Abnormality Appearance) (Pt Warm) -Tenderness on Palpation (Belle-wound No Skin Appearance) -Ulcer Cleansing Rinsed/ Irrigated with Saline -Foul Odor after Cleansing No -Anesthetic Used 4% Lidocaine Solution [Edema Assessment] -Lower Limb Edema Present Yes -Right Calf (cm) 42.5 -Right Ankle (cm) 24.2 WC - Nurse 2 - General Ulcer CM Notes Start: 03/19/20 08:57 Freq: Status: Active Protocol: Activity Type Activity Date Activity User E-Sign Co-Sign Detail Recorded Client Recorded Date Recorded By Document 03/26/20 13:53 MW [id number] 03/26/20 13:58 MW 03/26/20 13:53 Wound Center Nurse 2 [Procedure/Treatment] right great toe plantar -Time 13:54 -Correct Patient Yes -Correct Side, Site, Position Yes -Correct Procedure Yes -Procedure Performed Yes -Type of Procedure Debridement -Clinical Debridement Subcutaneous -Post Debridement Size (cm) - Length 3.2 -Post Debridement Size (cm) - Width 2.8 -Post Debridement Size (cm) - Depth 0.5 -Total Square Cm 8.96 -Wound/Ulcer Outcome Not Healed -Ulcer Cleansing Rinsed/ Irrigated with Saline -Foul Odor after Cleansing No -Bioengineered Tissue No -Bleeding Controlled with Pressure -Offloading No -Treatment Response Procedure Tolerated Well [See Physician Procedure note for Specifics] Pain Scale: 0-10 Numeric [Pain] -Is Patient Pain Free? Yes Musculoskeletal: No Tenderness to Palpation of Joints or Extremities, Muscle Wasting, - - Decreased 1st metatarsal phalangeal joint range of motion. No bogginess or fluctuance on palpation. The compartments of the foot remain soft Neurological: - - Lack of epicritic sensation light touch is consistent with neuropathy status Psych/Mental Status: Normal Affect, Appropriate Debridement Note Post-Debridement Measurements/Treatment WC - Nurse 2 - General Ulcer CM Notes Start: 03/19/20 08:57 Freq: Status: Active Protocol: Activity Type Activity Date Activity User E-Sign Co-Sign Detail Recorded Client Recorded Date Recorded By Document 03/19/20 09:11 DL [id number] 03/19/20 09:17 DL Document 03/26/20 13:53 MW [id number] 03/26/20 13:58 MW 03/19/20 03/26/20 09:11 13:53 Wound Center Nurse 2 right great toe plantar -Time 09:12 13:54 -Correct Patient Yes Yes -Correct Side, Site, Position Yes Yes -Correct Procedure Yes Yes -Procedure Performed Yes Yes -Type of Procedure Debridement Debridement -Clinical Debridement Muscle Subcutaneous -Post Debridement Size (cm) - Length 2.5 3.2 -Post Debridement Size (cm) - Width 2.2 2.8 -Post Debridement Size (cm) - Depth 0.8 0.5 -Total Square Cm 5.50 8.96 -Wound/Ulcer Outcome Not Healed Not Healed -Ulcer Cleansing Rinsed/ Rinsed/ Irrigated with Irrigated with Saline Saline -Foul Odor after Cleansing No No -Bioengineered Tissue No No -Bleeding Controlled with Pressure Pressure -Offloading Yes No -Type of Offloading Surgical Shoe -Treatment Response Procedure Procedure Tolerated Well Tolerated Well Pain Scale: 0-10 Numeric Is Patient Pain Free? Yes Yes Wound debrided: plantar hallux Laterality: Right Wound Grade/Stage: grade 3 Type of Debridement: Excisional debridement Anesthesia Used: 5% Lidocaine Gel Depth: in the subcutaneous layer Percentage of wound debrided: 100 Instrument Used: #10 blade Tissue Removed: fibrous, devitalized subcutaneous, biofilm, slough Severity: Fat Layer Exposed Amount of bleeding with debridement: Mild Bleeding Controlled with: Pressure Patient tolerated procedure well Assessment/Plan Clinical Impression(s) from Imaging Studies Lower Extremity MRI 03/19/20 10:59 IMPRESSION: Osteomyelitis of the distal phalanx of the great toe. Tibial sesamoiditis. Intermetatarsal neuroma of the third webspace. Mild intermetatarsal bursitis of the first webspace. Partial fat replacement of the intrinsic muscles of the forefoot suggestive of peripheral neuropathy. Electronically Signed: Torrey Joshua MD at 12:35 EDT Tel , Service support , ADDENDUM: 03/19/20 1409 IMPRESSION: Osteomyelitis of the distal phalanx of the great toe. Tibial sesamoiditis. Intermetatarsal neuroma of the third webspace. Mild intermetatarsal bursitis of the first webspace. Partial fat replacement of the intrinsic muscles of the forefoot suggestive of peripheral neuropathy. N.B. : GARDENIA Flannery, confirmed on 03/19/2020 14:02:13 (ET) that the healthcare facility has received the radiology report. Electronically Signed: Torrey Joshua MD at 12:35 EDT Tel , Service support , Assessment: Diabetes, uncontrolled (hemoglobin A1C is over 11%). Right great toe necrosis /gangrene to the outer tissue. Ulcer right hallux bone layer exposed (dumont grade 3). osteomyelitis distal phalanx of hallux. Cellulitis right foot addressed with oral antibiotics. Hallux limitus Plan: I reviewed and discussed his case. Excisional debridement was performed as noted in the clinical panel including fascia/muscle. To continue to change dressing with Betadine, gauze and gauze roll. His diagnostic data was reviewed and he did not have leukocytosis. His sedimentation rate was 44. His hemoglobin A1c was recently checked and was over 11%. His toe x-ray did not d emonstrate any acute fracture dislocation or soft tissue emphysema or foreign body. His recent ankle x-ray did not demonstrate any fracture, dislocation, radiographic evidence of Charcot, soft tissue emphysema or foreign body. Significant small vessel calcification is seen. To heel weightbearing in the surgical shoe is recommended; he already has this. To avoid driving or any activity that continues to place pressure on this ulcer site. He relates he will repetitively uses his forefoot for driving and he also often places his foot next to a heater. I recommended offloading this more aggressively with a cam walker boot with dual density offloading Plastizote liners. He did get fitted for this at the foot and ankle center and understands proper use. This will also immobilize his tender ankle and help him control his ankle edema as well. Compliance was discussed which has been a challenge for him. I also recommend nutritional supplementation and a prescription for Tripp was provided. To improve glucose management. We discussed adequate protein intake and I answered his questions. I recommended eating real whole food diet to provide his body with the appropriate nutrients to heal his ulcer. I recommended a bench worker apprentice consultation to help apply this on a daily basis. He is scheduled to see a bench worker apprentice. His microbiology reports were reviewed and it appears he has multi-organism growth. To continue on Augmentin and levofloxacin. He was seen by infectious disease as well. There is a concern of deeper tissue infection and potentially osteomyelitis. We discussed wound care and antibiotics first with the addition of hyperbaric oxygen versus amputation including the indications and treatment options. The patient will proceed forward with osteomyelitis work-up at this time with an MRI. This was confirmed with this imaging study. The indications, benefits, anticipated course and management of hyperbaric oxygen therapy was discussed. He is a candidate for this. Prior authorization with the insurance will be initiating he will also go for a medical screening to ensure safety. He had recent diagnostic data including labs. I would like to update an EKG and chest x-ray in preparation for the screening process as well and orders were provided. He also watched the video today on hyperbaric oxygen therapy and answers questions. This is medically necessary for limb salvage. He understands he is at continued risk of limb loss and his success is compromised by his medical instability. I also recommend updating his noninvasive vascular studies and this has been scheduled. He had abnormal findings with calcification and noncompressible vessels. Given his recent rapid gangrenous finding a tissue loss I recommend a vascular surgery referral. [address] Olvera today and input will be greatly appreciated. I answered all his questions. To follow-up with the wound healing center in 1 week.
--- NOTE | 2020-03-26 14:56 | EKG12_ITS ---
Test Reason : HYPERBARIC Blood Pressure : / mmHG Vent. Rate : 084 BPM Atrial Rate : 084 BPM P-R Int : 138 ms QRS Dur : 146 ms QT Int : 410 ms P-R-T Axes : 032 -25 011 degrees QTc Int : 484 ms Normal sinus rhythm Right bundle branch block Abnormal ECG Confirmed by ALEXANDRO PETIT ([id number]), book or script editor HOWARD AKHTAR ([id number]) on 03/31/2020 8:30:51 AM Referred By: Parris Abarca Confirmed By:ALEXANDRO PETIT
--- NOTE | 2020-03-26 15:00 | RAD_ITS ---
STUDY: X-RAY CHEST REASON FOR EXAM: Male, 59 years old. OXYGEN SCREENING. PT HAS LEFT FOOT ULCER TECHNIQUE: Frontal and lateral views of the chest. COMPARISON: None. FINDINGS: The lungs are clear and expanded. There is no demonstrated pleural abnormality. Normal size heart. Normal mediastinum and germaine. Normal visualized pulmonary arteries. Normal visualized aortic arch and descending thoracic aorta. Normal visualized thoracic spine. Normal visualized ribs, clavicles, and shoulders. There is no demonstrated abnormality of the visualized soft tissue structures of the upper abdomen. RAD/Chest PA and Lateral IMPRESSION: Normal x-ray examination of the chest. Electronically Signed: River Guevara MD at 21:49 EDT , Service support ,
[2020-04-02 09:25] VITALS: BP 162/90; PULSE 89; RESP 18; TEMP 36.8; BMI 39.9
--- NOTE | 2020-04-02 11:36 | HBO.CON.PC_ITS ---
(1) Diabetic foot ulcer associated with diabetes mellitus due to underlying condition Status: Acute Current Visit: No Qualifiers: Diabetic foot ulcer location: toe Laterality: left Non-pressure ulcer stage: with necrosis of muscle Qualified Code(s): E08.621 - Diabetes mellitus due to underlying condition with foot ulcer; L97.523 - Non-pressure chronic ulcer of other part of left foot with necrosis of muscle Code(s): E08.621 - Diabetes mellitus due to underlying condition with foot ulcer; L97.509 - Non-pressure chronic ulcer of other part of unspecified foot with unspecified severity (2) Diabetic foot ulcer with osteomyelitis Status: Acute Current Visit: No Code(s): E11.621 - Type 2 diabetes mellitus with foot ulcer; E11.69 - Type 2 diabetes mellitus with other specified complication; L97.509 - Non-pressure chronic ulcer of other part of unspecified foot with unspecified severity; M86.9 - Osteomyelitis, unspecified (3) Foot osteomyelitis, right Status: Acute Current Visit: No Code(s): M86.9 - Osteomyelitis, unspecified (4) Osteomyelitis Status: Acute Current Visit: No Qualifiers: Osteomyelitis location: foot Laterality: left Code(s): M86.9 - Osteomyelitis, unspecified (5) Cellulitis of right foot Status: Chronic Current Visit: No Code(s): L03.115 - Cellulitis of right lower limb (6) Delayed wound healing Status: Chronic Current Visit: No Code(s): T14.8XXD - Other injury of unspecified body region, subsequent encounter History of Present Illness Date of Service: 04/02/20 Presenting Chief Complaint: Right great toe ulcer infected The patient is a 59 year old M who [facility] the possibility of initiating hyperbaric oxygen therapy for treatment of [] Silvana 3 diabetic foot ulcer of the right great toe pad side. Patient is currently under the care of Dr. Nava. 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) Type 2 diabetes mellitus with diabetic polyneuropathy (Chronic) Type 2 diabetes mellitus with diabetic polyneuropathy (Chronic) Cellulitis of right foot (Chronic) Type 1 diabetes mellitus (Chronic) Malnutrition (Chronic) Delayed wound healing (Chronic) PVD (peripheral vascular disease) (Chronic) Ulcer of right foot with necrosis of muscle (Chronic) Hammer toe of right foot (Chronic) Ulcer of right foot with fat layer exposed (Chronic) Non-pressure chronic ulcer of right heel and midfoot with bone involvement without evidence of necrosis (Chronic) Diabetic ulcer of right foot (Chronic) Type 2 diabetes mellitus with diabetic polyneuropathy (Chronic) Diabetes mellitus type II, uncontrolled (Chronic) Obesity (BMI 30-39.9) (Chronic) Tobacco use (Chronic) Allergies/Adverse Reactions: Allergies No Known Allergies Allergy (Verified 02/27/20 12:53) Home Medications: Ambulatory Orders Medication Instructions Recorded Insulin Aspart [Novolog Flexpen 25 units SUBCUT TIDCM 02/27/20 ([facility])] Insulin Glargine [Lantus SoloStar 100 units SUBCUT BID 02/27/20 Pen] Maternal Family History: - - Other with a history of colon cancer, metastatic. Paternal Family History: - - Father with a history of prostate cancer. Smoking Status: Never smoker Review of Systems Constitutional: Denies: Chills, Fever Eyes: Denies: Blurred vision, Drainage, Pain HEENT: Denies: Difficulty Hearing, Difficulty Swallowing, Sore Throat, Visual Changes Cardiovascular: Denies: Chest Pain, Palpitations, Syncope Respiratory: Denies: Cough, Shortness of Breath Gastrointestinal: Denies: Abdominal Pain, Nausea, Vomiting Genitourinary: Denies: Dysuria, Frequency Musculoskeletal: Denies: Joint Pain, Muscle pain Skin: Reports: - - DFU right foot great toe. Denies: Jaundice, Rash Neurological: Denies: Balance problems, Change in Speech, Difficulty swallowing, Focal weakness Psychiatric: Denies: Anxiety, Depression Endocrine: Denies: Change in Body Habitus Hematologic/ Lymphatic: Denies: Adenopathy - Physical Exam Vital Signs Temp Pulse Resp BP 98.3 F 89 18 162/90 H 04/02/20 09:25 04/02/20 09:25 04/02/20 09:25 04/02/20 09:25 General: Oriented x3, Cooperative, Well developed HEENT: Atraumatic, PERRLA Oral: Moist Mucosa Neck: Supple, No JVD Lungs: Clear to auscultation, Normal air movement Cardiovascular: Regular rate, Regular Rhythm Abdomen: Bowel Sounds Present, Soft, Non Tender, No Hepato-splenomegaly Extremities: No clubbing, No edema Skin: Ulcer/ Wound - DFU right great toe Wound Measurements and Assessment WC - Nurse 1 - General Ulcer Measurement Start: 03/19/20 08:57 Freq: Status: Active Protocol: Activity Type Activity Date Activity User E-Sign Co-Sign Detail Recorded Client Recorded Date Recorded By Document 04/02/20 09:25 RB [id number] 04/02/20 09:28 RB 04/02/20 09:25 Wound Center Nurse 1 [Ulcer Assessment] right great toe plantar -Combined with other wound No -Current Size (cm) - Length 1.2 -Current Size (cm) - Width 2.8 -Current Size (cm) - Depth 0.5 -Total Square Cm 3.36 -Tunneling No -Undermining/Tunneling No -Circular Undermining No -Exudate Amt Medium -Exudate Type Serosanguineous -Wound Margin Thickened & Rolled Under -Granulation Amt Medium (34-66%) -Granulation Quality [place] -Slough/Fibrin Yes -Necrosis Amt Small (1-33%) -Necrotic Tissue Type Adherent Slough -Structure Exposed N/A -Texture (Belle-wound Skin Appearance) Assessed -Moisture (Belle-wound Skin Appearance Assessed ) -Color (Belle-wound Skin Appearance) Assessed -Temperature (Belle-wound Skin No Abnormality Appearance) (Pt Warm) -Tenderness on Palpation (Belle-wound No Skin Appearance) -Ulcer Cleansing Wound Cleanser -Foul Odor after Cleansing No -Anesthetic Used 4% Lidocaine Solution [Edema Assessment] -Lower Limb Edema Present Yes WC - Nurse 2 - General Ulcer CM Notes Start: 03/19/20 08:57 Freq: Status: Active Protocol: Activity Type Activity Date Activity User E-Sign Co-Sign Detail Recorded Client Recorded Date Recorded By Document 04/02/20 10:14 ALEENA [id number] 04/02/20 10:16 ALEENA 04/02/20 10:14 Wound Center Nurse 2 [Procedure/Treatment] right great toe plantar -Time 10:15 -Correct Patient Yes -Correct Side, Site, Position Yes -Correct Procedure Yes -Procedure Performed Yes -Type of Procedure Debridement -Clinical Debridement Subcutaneous -Post Debridement Size (cm) - Length 1.6 -Post Debridement Size (cm) - Width 2.5 -Post Debridement Size (cm) - Depth 0.5 -Total Square Cm 4.00 -Wound/Ulcer Outcome Not Healed -Ulcer Cleansing Rinsed/ Irrigated with Saline -Foul Odor after Cleansing No -Bioengineered Tissue No -Bleeding Controlled with Pressure -Offloading Yes -Type of Offloading Knee Walker -Treatment Response Procedure Tolerated Well [See Physician Procedure note for Specifics] Pain Scale: 0-10 Numeric [Pain] -Is Patient Pain Free? Yes Musculoskeletal: No Tenderness to Palpation of Joints or Extremities Lymphatic: No Cervical, Supraclavicular, or Inguinal Adenopathy Neurological: Cranial nerves II-XII grossly intact, Neuro grossly intact Psych/Mental Status: Normal Affect, Appropriate Assessment/Plan OLY SMITH is an appropriate candidate for hyperbaric oxygen therapy. Hyperbaric Oxygen Therapy would be an essential adjunct in the resolu tion and treatment of this patient's presenting problem. This patient has sufficient physiologic and psychological stamina to undergo the rigors of hyperbaric oxygen therapy. As such, I recommend the following: Hyperbaric Oxygen Treatments at 2.0 VALERIO in 100% Oxygen for 90 minutes per treatment, for [] treatments. I have discussed the possible benefits of hyperbaric oxygen therapy with this patient. I have also presented and described the risks, including: air gas embolism, pneumothorax, central nervous system and pulmonary oxygen toxicity, flash pulmonary edema, hypoglycemia, reversible visual refractive changes, ear and sinus charles-trauma, and confinement anxiety. The patient has verbalized understanding of these risks, and is still wanting to undergo hyperbaric oxygen therapy. The patient understands the significant time and transportation commitment involved in daily treatments of up to two hours duration and has stated that they are willing to commit to this therapy. - HBOT Diagnosis Peter III Diabetic Foot/Toe Ulcer (707.15/250.8) Non Healing Wound (707), Non Healing Surgical Wound (998.83), Acute Osteomyelitis (730.05) Clinical Impression(s) from Imaging Studies Lower Extremity MRI 03/19/20 10:59 IMPRESSION: Osteomyelitis of the distal phalanx of the great toe. Tibial sesamoiditis. Intermetatarsal neuroma of the third webspace. Mild intermetatarsal bursitis of the first webspace. Partial fat replacement of the intrinsic muscles of the forefoot suggestive of peripheral neuropathy. Electronically Signed: Torrey Joshua MD at 12:35 EDT Tel , Service support , ADDENDUM: 03/19/20 1409 IMPRESSION: Osteomyelitis of the distal phalanx of the great toe. Tibial sesamoiditis. Intermetatarsal neuroma of the third webspace. Mild intermetatarsal bursitis of the first webspace. Partial fat replacement of the intrinsic muscles of the forefoot suggestive of peripheral neuropathy. N.B. : GARDENIA Flannery, confirmed on 03/19/2020 14:02:13 (ET) that the healthcare facility has received the radiology report. Electronically Signed: Torrey Joshua MD at 12:35 EDT Tel , Service support , Chest X-Ray 03/26/20 15:00 IMPRESSION: Normal x-ray examination of the chest. Electronically Signed: River Guevara MD at 21:49 EDT , Service support ,
--- NOTE | 2020-04-02 11:48 | PN.PCM_ITS ---
(1) Osteomyelitis Status: Acute Qualifiers: Osteomyelitis location: foot Laterality: left Code(s): M86.9 - Osteomyelitis, unspecified (2) Chronic ulcer of right foot with necrosis of bone Status: Chronic Code(s): L97.514 - Non-pressure chronic ulcer of other part of right foot with necrosis of bone (3) Type 2 diabetes mellitus with diabetic polyneuropathy Status: Chronic Qualifiers: Code(s): E11.42 - Type 2 diabetes mellitus with diabetic polyneuropathy (4) Delayed wound healing Status: Chronic Code(s): T14.8XXD - Other injury of unspecified body region, subsequent encounter (5) PVD (peripheral vascular disease) Status: Chronic Code(s): I73.9 - Peripheral vascular disease, unspecified (6) Malnutrition Status: Chronic Code(s): E46 - Unspecified protein-calorie malnutrition Type of Wound Date of Service: 04/02/20 Chief Complaint: Right great toe ulcer infected History of Wound: 59-year-old white male with diabetes and other comorbidities was seen today for right foot ulcer. His antibiotics were updated to Augmentin and levofloxacin. He is also been seen by infectious disease specialist, Dr. Pike. He has a Vonore grade 3 ulcer and has also been diagnosed with acute osteomyelitis clinically and with MRI evaluation. He denies fever, chill, nausea, vomiting, diarrhea or other side effects since he started on antibiotics. He has discomfort with walking. He has taken some time off work. He is in the process of getting screening for hyperbaric oxygen therapy. He had some abnormal EKG findings and will go for an echocardiogram. Progress of Wound: improving stability - Physical Exam Vital Signs Temp Pulse Resp BP 98.3 F 89 18 162/90 H 04/02/20 09:25 04/02/20 09:25 04/02/20 09:25 04/02/20 09:25 General: Alert, Oriented x3, Cooperative, No apparent distress Extremities: No cyanosis, Capillary Refill Less than 3 Seconds, No Calf Tenderness, Diminished Peripheral Pulses, Edema - Decreased Skin: Ulcer/ Wound - No purulence, odor, erythema, streaking, or acute infection. He had improving granulation tissue at the plantar hallux however there is still probe to bone. There is no eschar. He is doing skin is hairless and atrophic Wound Measurements and Assessment WC - Nurse 1 - General Ulcer Measurement Start: 03/19/20 08:57 Freq: Status: Active Protocol: Activity Type Activity Date Activity User E-Sign Co-Sign Detail Recorded Client Recorded Date Recorded By Document 04/02/20 09:25 AL [id number] 04/02/20 09:28 AL 04/02/20 09:25 Wound Center Nurse 1 [Ulcer Assessment] right great toe plantar -Combined with other wound No -Current Size (cm) - Length 1.2 -Current Size (cm) - Width 2.8 -Current Size (cm) - Depth 0.5 -Total Square Cm 3.36 -Tunneling No -Undermining/Tunneling No -Circular Undermining No -Exudate Amt Medium -Exudate Type Serosanguineous -Wound Margin Thickened & Rolled Under -Granulation Amt Medium (34-66%) -Granulation Quality [place] -Slough/Fibrin Yes -Necrosis Amt Small (1-33%) -Necrotic Tissue Type Adherent Slough -Structure Exposed N/A -Texture (Belle-wound Skin Appearance) Assessed -Moisture (Belle-wound Skin Appearance Assessed ) -Color (Belle-wound Skin Appearance) Assessed -Temperature (Belle-wound Skin No Abnormality Appearance) (Pt Warm) -Tenderness on Palpation (Belle-wound No Skin Appearance) -Ulcer Cleansing Wound Cleanser -Foul Odor after Cleansing No -Anesthetic Used 4% Lidocaine Solution [Edema Assessment] -Lower Limb Edema Present Yes - Nurse 2 - General Ulcer CM Notes Start: 03/19/20 08:57 Freq: Status: Active Protocol: Activity Type Activity Date Activity User E-Sign Co-Sign Detail Recorded Client Recorded Date Recorded By Document 04/02/20 10:14 ALEENA [id number] 04/02/20 10:16 ALEENA 04/02/20 10:14 Wound Center Nurse 2 [Procedure/Treatment] right great toe plantar -Time 10:15 -Correct Patient Yes -Correct Side, Site, Position Yes -Correct Procedure Yes -Procedure Performed Yes -Type of Procedure Debridement -Clinical Debridement Subcutaneous -Post Debridement Size (cm) - Length 1.6 -Post Debridement Size (cm) - Width 2.5 -Post Debridement Size (cm) - Depth 0.5 -Total Square Cm 4.00 -Wound/Ulcer Outcome Not Healed -Ulcer Cleansing Rinsed/ Irrigated with Saline -Foul Odor after Cleansing No -Bioengineered Tissue No -Bleeding Controlled with Pressure -Offloading Yes -Type of Offloading Knee Walker -Treatment Response Procedure Tolerated Well [See Physician Procedure note for Specifics] Pain Scale: 0-10 Numeric [Pain] -Is Patient Pain Free? Yes Musculoskeletal: No Tenderness to Palpation of Joints or Extremities, Muscle Wasting, - - Compartments soft and there is no bogginess or fluctuance on palpation Neurological: - - Lack of epicritic sensation light touch is consistent with neuropathy status Psych/Mental Status: Normal Affect, Appropriate Debridement Note Post-Debridement Measurements/Treatment WC - Nurse 2 - General Ulcer CM Notes Start: 03/19/20 08:57 Freq: Status: Active Protocol: Activity Type Activity Date Activity User E-Sign Co-Sign Detail Recorded Client Recorded Date Recorded By Document 03/19/20 09:11 DL [id number] 03/19/20 09:17 DL Document 03/26/20 13:53 MW [id number] 03/26/20 13:58 MW Document 04/02/20 10:14 [id number] 04/02/20 10:16 03/19/20 03/26/20 04/02/20 09:11 13:53 10:14 Wound Center Nurse 2 right great toe plantar -Time 09:12 13:54 10:15 -Correct Patient Yes Yes Yes -Correct Side, Site, Position Yes Yes Yes -Correct Procedure Yes Yes Yes -Procedure Performed Yes Yes Yes -Type of Procedure Debridement Debridement Debridement -Clinical Debridement Muscle Subcutaneous Subcutaneous -Post Debridement Size (cm) - Length 2.5 3.2 1.6 -Post Debridement Size (cm) - Width 2.2 2.8 2.5 -Post Debridement Size (cm) - Depth 0.8 0.5 0.5 -Total Square Cm 5.50 8.96 4.00 -Wound/Ulcer Outcome Not Healed Not Healed Not Healed -Ulcer Cleansing Rinsed/ Rinsed/ Rinsed/ Irrigated with Irrigated with Irrigated with Saline Saline Saline -Foul Odor after Cleansing No No No -Bioengineered Tissue No No No -Bleeding Controlled with Pressure Pressure Pressure -Offloading Yes No Yes -Type of Offloading Surgical Shoe Knee Walker -Treatment Response Procedure Procedure Procedure Tolerated Well Tolerated Well Tolerated Well Pain Scale: 0-10 Numeric Is Patient Pain Free? Yes Yes Yes Wound debrided: plantar hallux Laterality: Right Wound Grade/Stage: grade 3 Type of Debridement: Excisional debridement Anesthesia Used: 5% Lidocaine Gel Depth: in the subcutaneous layer Percentage of wound debrided: 100 Instrument Used: #15 blade Tissue Removed: fibrous, devitalized subcutaneous, biofilm, slough Severity: Fat Layer Exposed Amount of bleeding with debridement: Mild Bleeding Controlled with: Pressure Patient tolerated procedure well Assessment/Plan Clinical Impression(s) from Imaging Studies Lower Extremity MRI 03/19/20 10:59 IMPRESSION: Osteomyelitis of the distal phalanx of the great toe. Tibial sesamoiditis. Intermetatarsal neuroma of the third webspace. Mild intermetatarsal bursitis of the first webspace. Partial fat replacement of the intrinsic muscles of the forefoot suggestive of peripheral neuropathy. Electronically Signed: Torrey Joshua MD at 12:35 EDT Tel , Service support , ADDENDUM: 03/19/20 1409 IMPRESSION: Osteomyelitis of the distal phalanx of the great toe. Tibial sesamoiditis. Intermetatarsal neuroma of the third webspace. Mild intermetatarsal bursitis of the first webspace. Partial fat replacement of the intrinsic muscles of the forefoot suggestive of peripheral neuropathy. N.B. : GARDENIA Flannery, confirmed on 03/19/2020 14:02:13 (ET) that the healthcare facility has received the radiology report. Electronically Signed: Torrey Joshua MD at 12:35 EDT Tel , Service support , Chest X-Ray 03/26/20 15:00 IMPRESSION: Normal x-ray examination of the chest. Electronically Signed: River Guevara MD at 21:49 EDT , Service support , Assessment: Diabetes, uncontrolled (hemoglobin A1C is over 11%). Right great toe necrosis /gangrene to the outer tissue. Ulcer right hallux bone layer exposed (dumont grade 3). osteomyelitis distal phalanx of hallux. Cellulitis and osteomyelitis right foot addressed with oral antibiotics. Hallux limitus Plan: I reviewed and discussed his case. Excisional debridement was performed as noted in the clinical panel including subcutaneous tissue. To continue to change dressing with Aquacel Ag, gauze and gauze roll. His diagnostic data was reviewed and he did not have leukocytosis. His sedimentation rate was 44. His hemoglobin A1c was recently checked and was over 11%. His toe x-ray did not demonstrate any acute fracture dislocation or soft tissue emphysema or foreign body. His recent ankle x-ray did not demonstrate any fracture, dislocation, radiographic evidence of Charcot, soft tissue emphysema or foreign body. Significant small vessel calcification is seen. Subsequent MRI of the foot did confirm acute osteomyelitis of the distal phalanx of the hallux. He was advised to heel weightb in the surgical shoe as recommended; he already has this. To avoid driving or any activity that continues to place pressure on this ulcer site. He relates he will repetitively uses his forefoot for driving and he also often places his foot next to a heater. I recommended offloading this more aggressively with a cam walker boot with dual density offloading Plastizote liners. He did get fitted for this at the foot and ankle center and understands proper use. This will also immobilize his tender ankle and help him control his ankle edema as well. Compliance was discussed which has been a challenge for him. I also recommend nutritional supplementation and a prescription for Tripp was provided. To improve glucose management. We discussed adequate protein intake and I answered his questions. I recommended eating real whole food diet to provide his body with the appropriate nutrients to heal his ulcer. I recommended a python web developer consultation to help apply this on a daily basis. He is scheduled to see a python web developer. His microbiology reports were reviewed and it appears he has multi-organism growth. To continue on Augmentin and levofloxacin. He was seen by infectious disease as well. We discussed wound care and antibiotics first with the addition of hyperbaric oxygen versus amputation including the indications and treatment options. The indications, benefits, anticipated course and management of hyperbaric oxygen therapy was discussed. He is a candidate for this. Prior authorization with the insurance will be initiating he will also go for a medical screening to ensure safety. He had recent diagnostic data including labs. His chest x-ray did not demonstrate any acute abnormalities. He did have a right bundle branch block on his EKG and he was advised to proceed with an echocardiogram. He was seen by Shoshana Medina, clinical nurse practitioner for hyperbaric oxygen therapy history and physical clearance process. This is medically necessary for limb salvage. He understands he is at continued risk of limb loss and his success is compromised by his medical instability. I also recommend updating his noninvasive vascular studies and this has been scheduled. He had abnormal findings with calcification and noncompressible vessels. Given his recent rapid gangrenous finding a tissue loss I recommend a vascular surgery referral. A referral was provided see Dr. Olvera today and input will be greatly appreciated. I answered all his questions. To follow-up with the wound healing center in 1 week.
--- NOTE | 2020-04-02 14:50 | PCM.PN.ID ---
Subjective: Feeling better, foot improving, no fever, no n/v/d - Physical Exam Vitals/I&O's: Vital Signs Temp Pulse Resp BP 98.3 F 89 18 162/90 H 04/02/20 09:25 04/02/20 09:25 04/02/20 09:25 04/02/20 09:25 Oxygen Delivery Method Room Air Weight: 264 kg Body Mass Index (BMI) 39.9 Finger Stick Blood Glucose 205 General: Alert, Cooperative, No apparent distress Lungs: Clear to auscultation, Normal air movement Cardiovascular: Regular rate, Regular Rhythm Abdomen: Soft, Non Tender, Non-Distended Skin: Ulcer/ Wound - foot wrapped Laboratory Results 04/02/20 14:43: Sodium Pending, Potassium Pending, Chloride Pending, Carbon Dioxide Pending, Anion Gap Pending, BUN Pending, Creatinine Pending, Est GFR (MDRD) Af Amer Pending, Est GFR (MDRD) Non-Af Pending, BUN/Creatinine Ratio Pending, Glucose Pending, Calcium Pending, Total Bilirubin Pending, Direct Bilirubin Pending, AST Pending, ALT Pending, Alkaline Phosphatase Pending, Total Protein Pending, Albumin Pending 04/02/20 14:43: WBC Pending, RBC Pending, Hgb Pending, Hct Pending, MCV Pending, MCH Pending, MCHC Pending, RDW Std Deviation Pending, RDW Coeff of Kylee Pending, Plt Count Pending, ESR Pending Medical Necessity - Tobacco Use Smoking Status: Never smoker Route of nutrition/ use of supplements: [] Nutritional Intake: [] IV Site: [] White Catheter: [] - Assessment/Plan Antibiotics: [] Assessment/Plan: [] R 1st toe osteo - MRI showed osteo and bone exposed per Dr. Abarca. Wound cx 02/26 with citro, serratia, mssa, and enterococcus. Will continue levaquin and augmentin for full 6 week course. Has 2 more weeks at this point. Checking LFT, bmp, cbc, and esr now. Will follow as needed, d/w Dr. Abarca
[2020-04-02 16:00] LABS: Hematocrit 44.3 % (40-54); Hemoglobin 14.7 g/dL (13.0-16.5); Mean Corp Hgb Conc 33.2 g/dL (32-36); Mean Corpuscular Hgb 29.9 pg (27.0-32.0); Mean Corpuscular Volume 90.2 fL (80-94); Platelet Count 191 K/mm3 (150-450); RBC Distribution Width CV 12.6 % (11.6-14.6); RBC Distribution Width SD 41.3 fl (35.1-43.9); Red Blood Count 4.91 M/mm3 (4.6-6.2); White Blood Count 6.8 K/mm3 (4.4-11.0)
[2020-04-02 16:31] LABS: AST(SGOT) 31 U/L (15-37); Alanine Aminotransfer ALT/SGPT 25 U/L (16-61); Albumin, Serum 3.5 g/dL (3.2-5.0); Alkaline Phosphatase 82 U/L (45-117); Anion Gap 4 (5-15); BUN 14 mg/dL (7-18); BUN/Creat Ratio 12.2 RATIO (10-20); Bilirubin, Direct 0.12 mg/dL (0.00-0.30); Calcium,Total 8.9 mg/dL (8.5-10.1); Chloride 108 mmol/L (98-107); Creatinine, Serum 1.15 mg/dL (0.70-1.30); EST Glomerular Filtration Rate 70 mL/min (>60); Est Glom Filt Rate - Afr Amer 84 mL/min (>60); Estimated Creatinine Clearance 68.57 ml/min; Glucose 251 mg/dL (74-106); Potassium 4.3 mmol/L (3.5-5.1); Protein, Total 7.5 g/dL (6.4-8.2); Sodium Level 138 mmol/L (136-145)
[2020-04-02 16:58] LABS: Erythrocyte Sedimentation Rate 23 mm/hr (0-20)
--- NOTE | 2020-04-07 09:03 | WC ---
Per TJ at [facility] the echo ordered by Shoshana does not require a precert. Call designation is [id number]
[2020-04-09 13:50] VITALS: BP 147/77; PULSE 91; RESP 18; TEMP 36.3; BMI 39.9
--- NOTE | 2020-04-09 15:19 | PCM.WC.PN ---
(1) Osteomyelitis Status: Acute Current Visit: Yes Qualifiers: Osteomyelitis location: foot Laterality: left Code(s): M86.9 - Osteomyelitis, unspecified (2) Chronic ulcer of right foot with necrosis of bone Status: Chronic Current Visit: Yes Code(s): L97.514 - Non-pressure chronic ulcer of other part of right foot with necrosis of bone (3) Type 2 diabetes mellitus with diabetic polyneuropathy Status: Chronic Current Visit: Yes Qualifiers: Code(s): E11.42 - Type 2 diabetes mellitus with diabetic polyneuropathy (4) Delayed wound healing Status: Chronic Current Visit: Yes Code(s): T14.8XXD - Other injury of unspecified body region, subsequent encounter (5) PVD (peripheral vascular disease) Status: Chronic Current Visit: Yes Code(s): I73.9 - Peripheral vascular disease, unspecified (6) Malnutrition Status: Chronic Current Visit: Yes Code(s): E46 - Unspecified protein-calorie malnutrition Type of Wound Date of Service: 04/09/20 Chief Complaint: Right great toe ulcer infected History of Wound: 59-year-old white male with diabetes and other comorbidities was seen today for right foot ulcer. His antibiotics were updated to Augmentin and levofloxacin. He is also been seen by infectious disease specialist, Dr. Pike. He has a Peter grade 3 ulcer and has also been diagnosed with acute osteomyelitis clinically and with MRI evaluation. He denies fever, chill, nausea, vomiting, diarrhea or other side effects since he started on antibiotics. He has discomfort with walking. He has taken some time off work. He is in the process of getting screening for hyperbaric oxygen therapy. He had some abnormal EKG findings and will go for an echocardiogram. This has not been completed yet. He was also approved for advanced wound healing product, epi-cord and would like to proceed forward with application today. Progress of Wound: improving stability - Physical Exam Vital Signs Temp Pulse Resp BP 97.4 F L 91 18 147/77 H 04/09/20 13:50 04/09/20 13:50 04/09/20 13:50 04/09/20 13:50 General: Alert, Oriented x3, Cooperative, No apparent distress Extremities: No cyanosis, Capillary Refill Less than 3 Seconds, No Calf Tenderness, Diminished Peripheral Pulses, Edema Skin: Ulcer/ Wound - No purulence, erythema, streaking, odor, infection. No longer any exposed bone. Adjacent skin is hairless and atrophic. Wound Measurements and Assessment WC - Nurse 1 - General Ulcer Measurement Start: 03/19/20 08:57 Freq: Status: Active Protocol: Activity Type Activity Date Activity User E-Sign Co-Sign Detail Recorded Client Recorded Date Recorded By Document 04/09/20 13:50 RB [id number] 04/09/20 13:52 RB 04/09/20 13:50 Wound Center Nurse 1 [Ulcer Assessment] right great toe plantar -Combined with other wound No -Current Size (cm) - Length 1.4 -Current Size (cm) - Width 2.5 -Current Size (cm) - Depth 0.2 -Total Square Cm 3.50 -Tunneling No -Undermining/Tunneling No -Circular Undermining No -Exudate Amt Medium -Exudate Type Serosanguineous -Wound Margin Flat & Intact -Granulation Amt Medium (34-66%) -Granulation Quality [place] -Slough/Fibrin Yes -Necrosis Amt Small (1-33%) -Necrotic Tissue Type Adherent Slough -Structure Exposed N/A -Texture (Belle-wound Skin Appearance) Assessed,Callus -Moisture (Belle-wound Skin Appearance Assessed ) -Color (Belle-wound Skin Appearance) Assessed -Temperature (Belle-wound Skin No Abnormality Appearance) (Pt Warm) -Tenderness on Palpation (Belle-wound No Skin Appearance) -Ulcer Cleansing Wound Cleanser -Foul Odor after Cleansing No -Anesthetic Used 5% Lidocaine Gel WC - Nurse 2 - General Ulcer CM Notes Start: 03/19/20 08:57 Freq: Status: Active Protocol: Activity Type Activity Date Activity User E-Sign Co-Sign Detail Recorded Client Recorded Date Recorded By Document 04/09/20 14:20 ALEENA [id number] 04/09/20 14:28 04/09/20 14:20 Wound Center Nurse 2 [Procedure/Treatment] -Time 14:20 -Correct Patient Yes -Correct Side, Site, Position Yes -Correct Procedure Yes -Procedure Performed Yes -Type of Procedure Debridement -Clinical Debridement Subcutaneous -Post Debridement Size (cm) - Length 1.5 -Post Debridement Size (cm) - Width 2.5 -Post Debridement Size (cm) - Depth 0.2 -Total Square (cm) 3.75 -Wound/Ulcer Outcome Not Healed -Ulcer Cleansing Rinsed/ Irrigated with Saline -Foul Odor after Cleansing No -Bioengineered Tissue Yes -Type of bioengineered Tissue EPICORD -Expiration Date 09/19/24 -Product Lot Number [id number] -Percent Used 100 -Saline Lot Number [id number] -Bleeding Controlled with Pressure -Offloading Yes -Type of Offloading Knee Walker -Treatment Response Procedure Tolerated Well [See Physician Procedure note for Specifics] Pain Scale: 0-10 Numeric [Pain] -Is Patient Pain Free? Yes Musculoskeletal: Muscle Wasting, - - Compartment soft and no bogginess or fluctuance on palpation Neurological: - - Lack of epicritic sensation light touch is consistent with neuropathy status Psych/Mental Status: Normal Affect, Appropriate Debridement Note Post-Debridement Measurements/Treatment WC - Nurse 2 - General Ulcer CM Notes Start: 03/19/20 08:57 Freq: Status: Active Protocol: Activity Type Activity Date Activity User E-Sign Co-Sign Detail Recorded Client Recorded Date Recorded By Document 03/19/20 09:11 DL [id number] 03/19/20 09:17 DL Document 03/26/20 13:53 MW [id number] 03/26/20 13:58 MW Document 04/02/20 10:14 JF [id number] 04/02/20 10:16 JF Document 04/09/20 14:20 JF [id number] 04/09/20 14:28 JF 03/19/20 03/26/20 04/02/20 09:11 13:53 10:14 Wound Center Nurse 2 right great toe plantar -Time 09:12 13:54 10:15 -Correct Patient Yes Yes Yes -Correct Side, Site, Position Yes Yes Yes -Correct Procedure Yes Yes Yes -Procedure Performed Yes Yes Yes -Type of Procedure Debridement Debridement Debridement -Clinical Debridement Muscle Subcutaneous Subcutaneous -Post Debridement Size (cm) - Length 2.5 3.2 1.6 -Post Debridement Size (cm) - Width 2.2 2.8 2.5 -Post Debridement Size (cm) - Depth 0.8 0.5 0.5 -Total Square (cm) 5.50 8.96 4.00 -Wound/Ulcer Outcome Not Healed Not Healed Not Healed -Ulcer Cleansing Rinsed/ Rinsed/ Rinsed/ Irrigated with Irrigated with Irrigated with Saline Saline Saline -Foul Odor after Cleansing No No No -Bioengineered Tissue No No No -Type of bioengineered Tissue -Expiration Date -Product Lot Number -Percent Used -Saline Lot Number -Bleeding Controlled with Pressure Pressure Pressure -Offloading Yes No Yes -Type of Offloading Surgical Shoe Knee Walker -Treatment Response Procedure Procedure Procedure Tolerated Well Tolerated Well Tolerated Well Pain Scale: 0-10 Numeric Is Patient Pain Free? Yes Yes Yes 04/09/20 14:20 Wound Center Nurse 2 right great toe plantar -Time 14:20 -Correct Patient Yes -Correct Side, Site, Position Yes -Correct Procedure Yes -Procedure Performed Yes -Type of Procedure Debridement -Clinical Debridement Subcutaneous -Post Debridement Size (cm) - Length 1.5 -Post Debridement Size (cm) - Width 2.5 -Post Debridement Size (cm) - Depth 0.2 -Total Square (cm) 3.75 -Wound/Ulcer Outcome Not Healed -Ulcer Cleansing Rinsed/ Irrigated with Saline -Foul Odor after Cleansing No -Bioengineered Tissue Yes -Type of bioengineered Tissue EPICORD -Expiration Date 09/19/24 -Product Lot Number [id number] -Percent Used 100 -Saline Lot Number [id number] -Bleeding Controlled with Pressure -Offloading Yes -Type of Offloading Knee Walker -Treatment Response Procedure Tolerated Well Pain Scale: 0-10 Numeric Is Patient Pain Free? Yes Wound debrided: plantar hallux Laterality: Right - g Wound Grade/Stage: grade 3 Type of Debridement: Excisional debridement Anesthesia Used: 5% Lidocaine Gel Depth: in the subcutaneous layer Percentage of wound debrided: 100 Instrument Used: #15 blade Tissue Removed: fibrous, devitalized subcutaneous , biofilm, slough Severity: Fat Layer Exposed Amount of bleeding with debridement: Mild Bleeding Controlled with: Pressure Patient tolerated procedure well Assessment/Plan Clinical Impression(s) from Imaging Studies Lower Extremity MRI 03/19/20 10:59 IMPRESSION: Osteomyelitis of the distal phalanx of the great toe. Tibial sesamoiditis. Intermetatarsal neuroma of the third webspace. Mild intermetatarsal bursitis of the first webspace. Partial fat replacement of the intrinsic muscles of the forefoot suggestive of peripheral neuropathy. Electronically Signed: Torrey Joshua MD at 12:35 EDT Tel , Service support , ADDENDUM: 03/19/20 1409 IMPRESSION: Osteomyelitis of the distal phalanx of the great toe. Tibial sesamoiditis. Intermetatarsal neuroma of the third webspace. Mild intermetatarsal bursitis of the first webspace. Partial fat replacement of the intrinsic muscles of the forefoot suggestive of peripheral neuropathy. N.B. : GARDENIA Flannery, confirmed on 03/19/2020 14:02:13 (ET) that the healthcare facility has received the radiology report. Electronically Signed: Torrey Joshua MD at 12:35 EDT Tel , Service support , Chest X-Ray 03/26/20 15:00 IMPRESSION: Normal x-ray examination of the chest. Electronically Signed: River Guevraa MD at 21:49 EDT , Service support , Active Problems Osteomyelitis (Acute) Chronic ulcer of right foot with necrosis of bone (Chronic) Type 2 diabetes mellitus with diabetic polyneuropathy (Chronic) Malnutrition (Chronic) Delayed wound healing (Chronic) PVD (peripheral vascular disease) (Chronic) Assessment: Diabetes, uncontrolled (hemoglobin A1C is over 11%). Right great toe necrosis /gangrene to the outer tissue. Ulcer right hallux bone layer exposed (peter grade 3). osteomyelitis distal phalanx of hallux. Cellulitis and osteomyelitis right foot addressed with oral antibiotics. Hallux limitus Plan: I reviewed and discussed his case. Excisional debridement was performed as noted in the clinical panel including subcutaneous tissue. He was approved for advanced wound healing product today and I recommend application of epi-cord. The indications, benefits, anticipated application and healing course and management were reviewed. This was applied according to standard protocol and he tolerated this well. He epi-cord was further secured in place with a wound veil and Steri-Strips. This is medically necessary for limb salvage. He is high risk for continued amputation, infection, loss of limb and life due to his recurrent infections and tissue loss. His diagnostic data was reviewed and he did not have leukocytosis. His sedimentation rate was 44. His hemoglobin A1c was recently checked and was over 11%. His toe x-ray did not demonstrate any acute fracture dislocation or soft tissue emphysema or foreign body. His recent ankle x-ray did not demonstrate any fracture, dislocation, radiographic evidence of Charcot, soft tissue emphysema or foreign body. Significant small vessel calcification is seen. Subsequent MRI of the foot did confirm acute osteomyelitis of the distal phalanx of the hallux. He was advised to heel weight in the surgical shoe as recommended; he already has this. To avoid driving or any activity that continues to place pressure on this ulcer site. He relates he will repetitively uses his forefoot for driving and he also often places his foot next to a heater. I recommended offloading this more aggressively with a cam walker boot with dual density offloading Plastizote liners. He did get fitted for this at the foot and ankle center and understands proper use. This will also immobilize his tender ankle and help him control his ankle edema as well. Compliance was discussed which has been a challenge for him. I also recommend nutritional supplementation and a prescription for Tripp was provided. To improve glucose management. We discussed adequate protein intake and I answered his questions. I recommended eating real whole food diet to provide his body with the appropriate nutrients to heal his ulcer. I recommended a chief of production consultation to help apply this on a daily basis. He is scheduled to see a chief of production. His microbiology reports were reviewed and it appears he has multi-organism growth. To continue on Augmentin and levofloxacin. He was seen by infectious disease as well. We discussed wound care and antibiotics first with the addition of hyperbaric oxygen versus amputation including the indications and treatment options. The indications, benefits, anticipated course and management of hyperbaric oxygen therapy was discussed. He is a candidate for this. Prior authorization with the insurance will be initiating he will also go for a medical screening to ensure safety. He had recent diagnostic data including labs. His chest x-ray did not demonstrate any acute abnormalities. He did have a right bundle branch block on his EKG and he was advised to proceed with an echocardiogram. He was seen by Shoshana Medina, clinical nurse practitioner for hyperbaric oxygen therapy history and physical clearance process. This is medically necessary for limb salvage. He understands he is at continued risk of limb loss and his success is compromised by his medical instability. I also recommend updating his noninvasive vascular studies and this has been scheduled. He had abnormal findings with calcification and noncompressible vessels. Given his recent rapid gangrenous finding a tissue loss I recommend a vascular surgery referral. A referral was provided see Dr. Olvera and input will be greatly appreciated. I answered all his questions. To follow-up with the wound healing center in 1 week.
--- NOTE | 2020-04-10 15:10 | ECHOCS_ITS ---
Reason For Study: Bundle Branch Block Procedure This was a 2D Doppler, Color Flow transthoracic echocardiogram. Contrast injection was performed. Exam performed in department. Left Ventricle Normal LV size. The estimated ejection fraction is 45-50 %. Stage 1 diastolic dysfunction. [place] : Hypokinetic. Right Ventricle Normal RV size. Normal systolic function. [place] Normal left atrium. Normal right atrium. No doppler evidence for ASD. Mitral Valve There is no mitral valve stenosis. Mild (1+) mitral valve insufficiency. Tricuspid Valve There is no tricuspid stenosis. Trivial tricuspid valve insufficiency. Unable to estimate RV systolic pressure due to insufficient tricuspid regurgitant envelope. Aortic Valve Trisinus/trileaflet aortic valve. Mild diffuse aortic valve thickening. There is no aortic stenosis. No aortic valve insufficiency. Pulmonic Valve There is no pulmonic valvular stenosis. No pulmonic valve insufficiency. Great Vessels Normal aortic root. Pericardium/Pleural No pericardial effusion. Medication Diluted definity 3ml given slow IV push to enhance endocardial definition. MMode/2D Measurements & Calculations LVIDd: 6.6 cm IVSd: 1.3 cm Ao root diam: 3.1 cm LVIDs: 5.6 cm LVPWd: 1.4 cm RVDd: 3.3 cm FS: 14.8 % LAV(MOD-bp): 55.0 ml LVAd ap4: 50.6 cm2 SV(MOD-sp4): 79.7 ml LAV(MOD-bp) Indexed: 23.8 ml/m2 EDV(MOD-sp4): 223.0 ml LAV(MOD-sp2): 43.8 ml EDV(sp4-el): 232.1 ml LAV(MOD-sp4): 57.2 ml LVAs ap4: 39.7 cm2 ESV(MOD-sp4): 143.2 ml ESV(sp4-el): 147.1 ml EF(MOD-sp4): 35.8 % EF(sp4-el): 36.6 % SV(sp4-el): 85.0 ml LA A4 area: 20.5 cm2 LA dimension(2D): 4.7 cm RA A4 area: 10.4 cm2 Doppler Measurements & Calculations MV E max david: 60.8 cm/sec Lat Peak E' David: 5.2 cm/sec Med Peak E' David: 5.2 cm/sec MV A max david: 90.6 cm/sec E/E' lat: 11.8 E/E' med: 11.8 MV E/A: 0.67 Ao V2 max: 117.6 cm/sec LV V1 max: 84.9 cm/sec PA V2 max: 77.1 cm/sec Ao max P.5 mmHg LV V1 max P.9 mmHg Ao V2 mean: 89.2 cm/sec Ao mean P.4 mmHg Ao V2 VTI: 22.3 cm Interpretation Summary The estimated ejection fraction is 45-50 %. [place] : Hypokinetic. Mild (1+) mitral valve insufficiency. Mild diffuse aortic valve thickening. Stage 1 diastolic dysfunction. The study was technically difficult. Contrast injection was performed. Ordering Physician: Shoshana Medina Referring Physician: Matias Graves Performed By: Elizabeth Almonte, PHILIP, RVT
== END 2020-04-18 23:59 ==
LOC: CVS 15:00
PROVIDERS: Internal Medicine Infectious Disease; PCP Family Medicine; Referring Provider Podiatrist; Visit Provider Podiatrist
DX: L97.523 Non-pressure chronic ulcer of other part of left foot with necrosis of muscle (principal)
CPT/HCPCS: 11042; 11043; 15275; 36415; 71046; 73718; 80048; 80076; 85027; 85652; 93005; 93306; 93923; 99212; Q4187; Q9957; A4216; C8929; G0463

== ENCOUNTER 2020-04-16 13:30 | Outpatient (RCR) | payer BC, SELFPAY ==
[2020-04-09 13:50] VITALS: BMI 39.9
[2020-04-16 13:52] VITALS: BP 134/73; PULSE 83; RESP 20; TEMP 36.4; BMI 39.9
--- NOTE | 2020-04-16 16:20 | PCM.WC.PN ---
(1) Osteomyelitis Status: Acute Code(s): M86.9 - Osteomyelitis, unspecified (2) Chronic ulcer of right foot with necrosis of bone Status: Chronic Code(s): L97.514 - Non-pressure chronic ulcer of other part of right foot with necrosis of bone (3) Type 2 diabetes mellitus with diabetic polyneuropathy Status: Chronic Qualifiers: Code(s): E11.42 - Type 2 diabetes mellitus with diabetic polyneuropathy Type of Wound Date of Service: 04/16/20 Chief Complaint: Right great toe ulcer infected History of Wound: 59-year-old white male with diabetes and other comorbidities was seen today for right foot ulcer. His antibiotics were updated to Augmentin and levofloxacin. He is also been seen by infectious disease specialist, Dr. Pike. He has a Peter grade 3 ulcer and has also been diagnosed with acute osteomyelitis clinically and with MRI evaluation. He denies fever, chill, nausea, vomiting, diarrhea or other side effects since he started on antibiotics. He has discomfort with walking. He has taken some time off work. He is in the process of getting screening for hyperbaric oxygen therapy. He had some abnormal EKG findings and will go for an echocardiogram. This was completed and he would like to review the results today. He had epicord applied last week and and and intact. Progress of Wound: stable - Physical Exam Vital Signs Temp Pulse Resp BP 97.6 F L 83 20 H 134/73 H 04/16/20 13:52 04/16/20 13:52 04/16/20 13:52 04/16/20 13:52 General: Alert, Oriented x3, Cooperative, No apparent distress HEENT: Atraumatic Extremities: No cyanosis, Capillary Refill Less than 3 Seconds, No Calf Tenderness, Diminished Peripheral Pulses, Edema Skin: Ulcer/ Wound - No purulence, erythema, streaking, odor, infection. The epicord remains intact and is incorporating well with Steri-Strips and a wound veil in place. Wound Measurements and Assessment WC - Nurse 1 - General Ulcer Measurement Start: 04/16/20 13:31 Freq: Status: Active Protocol: Activity Type Activity Date Activity User E-Sign Co-Sign Detail Recorded Client Recorded Date Recorded By Document 04/16/20 13:52 DL [id number] 04/16/20 14:01 DL 04/16/20 13:52 Wound Center Nurse 1 [Ulcer Assessment] right great toe plantar -Photo Taken No -Exudate Amt Small -Exudate Type Serosanguineous -Texture (Belle-wound Skin Appearance) No Abnormality -Moisture (Belle-wound Skin Appearance Maceration ) -Color (Belle-wound Skin Appearance) No Abnormality -Temperature (Belle-wound Skin No Abnormality Appearance) (Pt Warm) -Tenderness on Palpation (Belle-wound No Skin Appearance) -Foul Odor after Cleansing No - Nurse 2 - General Ulcer CM Notes Start: 04/16/20 13:31 Freq: Status: Active Protocol: Activity Type Activity Date Activity User E-Sign Co-Sign Detail Recorded Client Recorded Date Recorded By Document 04/16/20 14:21 [id number] 04/16/20 14:22 04/16/20 14:21 Wound Center Nurse 2 [Procedure/Treatment] -Correct Patient No -Correct Side, Site, Position No -Correct Procedure No -Procedure Performed No -Wound/Ulcer Outcome Not Healed [See Physician Procedure note for Specifics] Pain Scale: 0-10 Numeric [Pain] -Is Patient Pain Free? Yes Musculoskeletal: Muscle Wasting Neurological: - - Lack of normal epicritic sensation to light Psych/Mental Status: Normal Affect, Appropriate Debridement Note Post-Debridement Measurements/Treatment - Nurse 2 - General Ulcer CM Notes Start: 04/16/20 13:31 Freq: Status: Active Protocol: Activity Type Activity Date Activity User E-Sign Co-Sign Detail Recorded Client Recorded Date Recorded By Document 04/16/20 14:21 JF [id number] 04/16/20 14:22 04/16/20 14:21 Wound Center Nurse 2 right great toe plantar -Correct Patient No -Correct Side, Site, Position No -Correct Procedure No -Procedure Performed No -Wound/Ulcer Outcome Not Healed Pain Scale: 0-10 Numeric Is Patient Pain Free? Yes No debridement was completed today - Advanced wound healing product, epi-cord is currently incorporating in it was left intact Assessment/Plan Assessment: Diabetes, uncontrolled (hemoglobin A1C is over 11%). Right great toe necrosis /gangrene to the outer tissue. Ulcer right hallux bone layer exposed (peter grade 3). osteomyelitis distal phalanx of hallux. Cellulitis and osteomyelitis right foot addressed with oral antibiotics. Hallux limitus Plan: I reviewed and discussed his case. Epicord was applied last week and this was left intact to continue incorporating as he is high risk for continued amputation, infection, loss of limb and life due to his recurrent infections and tissue loss. His diagnostic data was reviewed and he did not have leukocytosis. His sedimentation rate was 44. His hemoglobin A1c was recently checked and was over 11%. His toe x-ray did not demonstrate any acute fracture dislocation or soft tissue emphysema or foreign body. His recent ankle x-ray did not demonstrate any fracture, dislocation, radiographic evidence of Charcot, soft tissue emphysema or foreign body. Significant small vessel calcification is seen. Subsequent MRI of the foot did confirm acute osteomyelitis of the distal phalanx of the hallux. He was advised to heel weight in the surgical shoe as recommended; he already has this. To avoid driving or any activity that continues to place pressure on this ulcer site. He relates he will repetitively uses his forefoot for driving and he also often places his foot next to a heater. I recommended offloading this more aggressively with a cam walker boot with dual density offloading Plastizote liners. He did get fitted for this at the foot and ankle center and understands proper use. This will also immobilize his tender ankle and help him control his ankle edema as well. Compliance was discussed which has been a challenge for him. I also recommend nutritional supplementation and a prescription for Tripp was provided. To improve glucose management. We discussed adequate protein intake and I answered his questions. I recommended eating real whole food diet to provide his body with the appropriate nutrients to heal his ulcer. I recommended a hot metal mixer operator consultation to help apply this on a daily basis. He is scheduled to see a hot metal mixer operator. His microbiology reports were reviewed and it appears he has multi-organism growth. To continue on Augmentin and levofloxacin. He was seen by infectious disease as well. We discussed wound care and antibiotics first with the addition of hyperbaric oxygen versus amputation including the indications and treatment options. The indications, benefits, anticipated course and management of hyperbaric oxygen therapy was discussed. He is a candidate for this. Prior authorization with the insurance will be initiating he will also go for a medical screening to ensure safety. He had recent diagnostic data including labs. His chest x-ray did not demonstrate any acute abnormalities. He did have a right bundle branch block on his EKG and he was advised to proceed with an echocardiogram. He had an EF of about 45%. He was seen by Shoshana Medina, clinical nurse practitioner for hyperbaric oxygen therapy history and physical clearance process. This is medically necessary for limb salvage. He understands he is at continued risk of limb loss and his success is compromised by his medical instability. I also recommend updating his noninvasive vascular studies and this has been scheduled. He had abnormal findings with calcification and noncompressible vessels. Given his recent rapid gangrenous finding a tissue loss I recommend a vascular surgery referral. A referral was provided see Dr. Olvera and input will be greatly appreciated.This was scheduled. I answered all his questions. To follow-up with the wound healing center in 1 week.
== END 2020-04-18 23:59 ==
LOC: WC 13:30
PROVIDERS: PCP Family Medicine; Visit Provider Podiatrist
DX: E11.621 Type 2 diabetes mellitus with foot ulcer (principal); L97.514 Non-pressure chronic ulcer of other part of right foot with necrosis of bone; E11.42 Type 2 diabetes mellitus with diabetic polyneuropathy; E11.52 Type 2 diabetes mellitus with diabetic peripheral angiopathy with gangrene; E11.65 Type 2 diabetes mellitus with hyperglycemia; I45.10 Unspecified right bundle-branch block; L03.115 Cellulitis of right lower limb; M86.171 Other acute osteomyelitis, right ankle and foot; M20.5X1 Other deformities of toe(s) (acquired), right foot

== ENCOUNTER 2020-05-19 08:30 | Outpatient (RCR) | payer BC, SELFPAY ==
[2020-04-19 00:43] VITALS: BP 134/73; PULSE 83; RESP 20; TEMP 36.4
[2020-04-23 13:26] VITALS: BP 146/81; PULSE 81; RESP 16; TEMP 36.4; BMI 39.9
--- NOTE | 2020-04-23 14:01 | PN.PCM_ITS ---
(1) Osteomyelitis Status: Acute Code(s): M86.9 - Osteomyelitis, unspecified (2) Chronic ulcer of right foot with necrosis of bone Status: Chronic Code(s): L97.514 - Non-pressure chronic ulcer of other part of right foot with necrosis of bone (3) Type 2 diabetes mellitus with diabetic polyneuropathy Status: Chronic Qualifiers: Code(s): E11.42 - Type 2 diabetes mellitus with diabetic polyneuropathy (4) Delayed wound healing Status: Chronic Code(s): T14.8XXD - Other injury of unspecified body region, subsequent encounter (5) PVD (peripheral vascular disease) Status: Chronic Code(s): I73.9 - Peripheral vascular disease, unspecified Type of Wound Date of Service: 04/23/20 Chief Complaint: Right great toe ulcer infected History of Wound: 59-year-old white male with diabetes and other comorbidities was seen today for right foot ulcer. His antibiotics were updated to Augmentin and levofloxacin. He is also been seen by infectious disease specialist, Dr. Pike. He has a Peter grade 3 ulcer and has also been diagnosed with acute osteomyelitis clinically and with MRI evaluation. He denies fever, chill, nausea, vomiting, diarrhea or other side effects since he started on antibiotics. He has discomfort with walking. He has taken some time off work. He has been medically cleared to start hyperbaric oxygen therapy will get this scheduled today. He kept his epi-cord advanced wound healing product intact and clean this past week and is amendable to proceed with additional application today. Progress of Wound: Improving - Physical Exam Vital Signs Temp Pulse Resp BP 97.5 F L 81 16 146/81 H 04/23/20 13:26 04/23/20 13:26 04/23/20 13:26 04/23/20 13:26 General: Alert, Oriented x3, Cooperative, No apparent distress Extremities: No cyanosis, Capillary Refill Less than 3 Seconds, No Calf Tenderness, Diminished Peripheral Pulses, Edema Skin: Ulcer/ Wound - No purulence, erythema, streaking, odor, infection. Progressive granular base is noted. Adjacent skin is hairless and atrophic. Wound Measurements and Assessment WC - Nurse 1 - General Ulcer Measurement Start: 04/23/20 12:55 Freq: Status: Active Protocol: Activity Type Activity Date Activity User E-Sign Co-Sign Detail Recorded Client Recorded Date Recorded By Document 04/23/20 13:26 [facility] [id number] 04/23/20 13:34 [facility] 04/23/20 13:26 Wound Center Nurse 1 [Ulcer Assessment] right great toe plantar -Combined with other wound No -Current Size (cm) - Length 1 -Current Size (cm) - Width 2.3 -Current Size (cm) - Depth 0.2 -Total Square Cm 2.3 -Date of Last Picture (Recall this 04/23/20 field) -Photo Taken Yes -Epithelialization Small 1-33% -Tunneling No -Undermining/Tunneling No -Circular Undermining No -Exudate Amt Small -Exudate Type Serosanguineous -Wound Margin Distinct, Outline Attached -Granulation Amt Large (67-100%) -Granulation Quality Ursa -Slough/Fibrin Yes -Necrosis Amt Small (1-33%) -Necrotic Tissue Type Adherent Slough -Texture (Belle-wound Skin Appearance) Assessed,Callus ,Scarring -Moisture (Belle-wound Skin Appearance Assessed, ) Maceration -Color (Belle-wound Skin Appearance) Assessed,Palor -Temperature (Belle-wound Skin No Abnormality Appearance) (Pt Warm) -Tenderness on Palpation (Belle-wound No Skin Appearance) -Ulcer Cleansing soapy water -Foul Odor after Cleansing No -Anesthetic Used 5% Lidocaine Gel [Edema Assessment] -Lower Limb Edema Present Yes -Right Calf (cm) 42.9 -Right Ankle (cm) 24.4 WC - Nurse 2 - General Ulcer CM Notes Start: 04/23/20 12:55 Freq: Status: Active Protocol: Activity Type Activity Date Activity User E-Sign Co-Sign Detail Recorded Client Recorded Date Recorded By Document 04/23/20 13:48 [id number] 04/23/20 13:51 04/23/20 13:48 Wound Center Nurse 2 [Procedure/Treatment] right great toe plantar -Time 13:49 -Correct Patient Yes -Correct Side, Site, Position Yes -Correct Procedure Yes -Procedure Performed Yes -Type of Procedure Debridement -Clinical Debridement Subcutaneous -Post Debridement Size (cm) - Length 1.1 -Post Debridement Size (cm) - Width 2.3 -Post Debridement Size (cm) - Depth 0.3 -Total Square (cm) 2.53 -Wound/Ulcer Outcome Not Healed -Ulcer Cleansing Rinsed/ Irrigated with Saline -Foul Odor after Cleansing No -Bioengineered Tissue Yes -Type of bioengineered Tissue EPICORD -Expiration Date 12/18/24 -Product Lot Number [id number] -Percent Used 100 -Saline Lot Number [id number] -Bleeding Controlled with Pressure -Offloading Yes -Type of Offloading Knee Walker -Treatment Response Procedure Tolerated Well [See Physician Procedure note for Specifics] Pain Scale: 0-10 Numeric [Pain] -Is Patient Pain Free? Yes Musculoskeletal: No Tenderness to Palpation of Joints or Extremities, Muscle Wasting Neurological: - - Lack of epicritic sensation light touch is consistent with neuropathy status Psych/Mental Status: Normal Affect, Appropriate Debridement Note Post-Debridement Measurements/Treatment WC - Nurse 2 - General Ulcer CM Notes Start: 04/23/20 12:55 Freq: Status: Active Protocol: Activity Type Activity Date Activity User E-Sign Co-Sign Detail Recorded Client Recorded Date Recorded By Document 04/23/20 13:48 [facility] [id number] 04/23/20 13:51 [facility] 04/23/20 13:48 Wound Center Nurse 2 right great toe plantar -Time 13:49 -Correct Patient Yes -Correct Side, Site, Position Yes -Correct Procedure Yes -Procedure Performed Yes -Type of Procedure Debridement -Clinical Debridement Subcutaneous -Post Debridement Size (cm) - Length 1.1 -Post Debridement Size (cm) - Width 2.3 -Post Debridement Size (cm) - Depth 0.3 -Total Square (cm) 2.53 -Wound/Ulcer Outcome Not Healed -Ulcer Cleansing Rinsed/ Irrigated with Saline -Foul Odor after Cleansing No -Bioengineered Tissue Yes -Type of bioengineered Tissue EPICORD -Expiration Date 12/18/24 -Product Lot Number [id number] -Percent Used 100 -Saline Lot Number [id number] -Bleeding Controlled with Pressure -Offloading Yes -Type of Offloading Knee Walker -Treatment Response Procedure Tolerated Well Pain Scale: 0-10 Numeric Is Patient Pain Free? Yes Wound debrided: plantar hallux Laterality: Right Wound Grade/Stage: grade 3 Type of Debridement: Excisional debridement Anesthesia Used: 5% Lidocaine Gel Depth: in the subcutaneous layer Percentage of wound debrided: 100 Instrument Used: #15 blade Tissue Removed: fibrous, devitalized subcutaneous, biofilm, slough Severity: Fat Layer Exposed Amount of bleeding with debridement: Mild Bleeding Controlled with: Pressure Patient tolerated procedure well Assessment/Plan Assessment: Diabetes, uncontrolled (hemoglobin A1C is over 11%). Right great toe necrosis /gangrene to the outer tissue. Ulcer right hallux bone layer exposed (peter grade 3). osteomyelitis distal phalanx of hallux. Cellulitis and osteomyelitis right foot addressed with oral antibiotics. Hallux limitus Plan: I reviewed and discussed his case. The ulcer was debrided as noted in the clinical panel. Verbal consent was obtained for application of advanced wound healing product, epi-cord. This was applied according standard protocol was further secured in place with Steri-Strips and a wound veil. He was advised to keep this clean, dry, and intact until follow-up next week. I recommend this because he is high risk for continued amputation, infection, loss of limb and life due to his recurrent infections and tissue loss. This is medically necessary. His diagnostic data was reviewed and he did not have leukocytosis. His sedimentation rate was 44. His hemoglobin A1c was recently checked and was over 11%. His toe x-ray did not demonstrate any acute fracture dislocation or soft tissue emphysema or foreign body. His recent ankle x-ray did not demonstrate any fracture, dislocation, radiographic evidence of Charcot, soft tissue emphysema or foreign body. Significant small vessel calcification is seen. Subsequent MRI of the foot did confirm acute osteomyelitis of the distal phalanx of the hallux. He was advised to heel weight in the surgical shoe as recommended; he already has this. To avoid driving or any activity that continues to place pressure on this ulcer site. He relates he will repetitively uses his forefoot for driving and he also often places his foot next to a heater. I recommended offloading this more aggressively with a cam walker boot with dual density offloading Plastizote liners. He did get fitted for this at the foot and ankle center and understands proper use. This will also immobilize his tender ankle and help him control his ankle edema as well. Compliance was discussed which has been a challenge for him. I also recommend nutritional supplementation and a prescription for Tripp was provided. To improve glucose management. We discussed adequate protein intake and I answered his questions. I recommended eating real whole food diet to provide his body with the appropriate nutrients to heal his ulcer. I recommended a highway traffic control technician consultation to help apply this on a daily basis. He is scheduled to see a highway traffic control technician. His microbiology reports were reviewed and it appears he has multi-organism growth. To continue on Augmentin and levofloxacin. He was seen by infectious disease as well. We discussed wound care and antibiotics first with the addition of hyperbaric oxygen versus amputation including the indic ations and treatment options. The indications, benefits, anticipated course and management of hyperbaric oxygen therapy was discussed. He is a candidate for this. Prior authorization with the insurance will be initiating he will also go for a medical screening to ensure safety. He had recent diagnostic data including labs. His chest x-ray did not demonstrate any acute abnormalities. He did have a right bundle branch block on his EKG and he was advised to proceed with an echocardiogram. He had an EF of about 45%. He was seen by Shoshana Medina, clinical nurse practitioner for hyperbaric oxygen therapy history and physical clearance process. This is medically necessary for limb salvage. He understands he is at continued risk of limb loss and his success is compromised by his medical instability. He has been medically cleared and hopefully will be able to schedule today. I also recommend updating his noninvasive vascular studies and this has been scheduled. He had abnormal fi ndings with calcification and noncompressible vessels. Given his recent rapid gangrenous finding a tissue loss I recommend a vascular surgery referral. A referral was provided see Dr. Olvera and input will be greatly appreciated.This was scheduled. I answered all his questions. To follow-up with the wound healing center in 1 week.
--- NOTE | 2020-04-28 11:45 | PCM.HBO.PN ---
History of Present Illness Date of Service: 04/28/20 Presenting Chief Complaint: Right great toe ulcer infected OLY SMITH is a 59 year old currently undergoing hyperbaric oxygen therapy for Non-pressure chronic ulcer of other part of right foot with necrosis of bone. Progress: Today represents 1st hyperbaric oxygen treatment of 20 planned treatments. Tolerance of hyperbaric oxygen therapy: Hyperbaric oxygen treatment was provided as per the facility's protocol at 2.0 VALERIO and 100% oxygen for 90 minutes. There were no air breaks. The patient tolerated hyperbaric oxygen well, without complications or complaints. Upon emergence of the hyperbaric chamber the patient's vital signs remained stable. Pre and post blood glucose levels as documented. Patient was discharged in good condition. 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) Type 2 diabetes mellitus with diabetic polyneuropathy (Chronic) Type 2 diabetes mellitus with diabetic polyneuropathy (Chronic) Cellulitis of right foot (Chronic) Type 1 diabetes mellitus (Chronic) Malnutrition (Chronic) Delayed wound healing (Chronic) PVD (peripheral vascular disease) (Chronic) Ulcer of right foot with necrosis of muscle (Chronic) Hammer toe of right foot (Chronic) Ulcer of right foot with fat layer exposed (Chronic) Non-pressure chronic ulcer of right heel and midfoot with bone involvement without evidence of necrosis (Chronic) Diabetic ulcer of right foot (Chronic) Type 2 diabetes mellitus with diabetic polyneuropathy (Chronic) Diabetes mellitus type II, uncontrolled (Chronic) Obesity (BMI 30-39.9) (Chronic) Tobacco use (Chronic) Allergies/Adverse Reactions: Allergies No Known Allergies Allergy (Verified 02/27/20 12:53) Home Medications: Ambulatory Orders Medication Instructions Recorded Insulin Aspart [Novolog Flexpen 25 units SUBCUT TIDCM 02/27/20 ([facility])] Insulin Glargine [Lantus SoloStar 100 units SUBCUT BID 02/27/20 [facility]] Maternal Family History: - - Other with a history of colon cancer, metastatic. Paternal Family History: - - Father with a history of prostate cancer. Smoking Status: Never smoker Physical Exam Vital Signs Temp Pulse Resp BP 97.5 F L 81 16 146/81 H 04/23/20 13:26 04/23/20 13:26 04/23/20 13:26 04/23/20 13:26 General: Alert, Oriented x3, Cooperative HEENT: Atraumatic, TM's Clear Lungs: Clear to auscultation, Normal air movement Cardiovascular: Regular rate, Regular Rhythm Psych/Mental Status: Normal Affect, Appropriate, Alert and oriented to time, place, person, mood and affect Assessment/Plan He is tolerating hyperbaric oxygen therapy well, which will be continued as per the patient's medical plan.
[2020-04-28 12:07] VITALS: BP 139/74; PULSE 78; RESP 16; TEMP 36.4
[2020-04-28 12:10] LABS: Bedside Glucose 293 mg/dL (70-110)
[2020-04-28 12:10] LABS: Bedside Glucose 205 mg/dL (70-110)
[2020-04-28 14:11] LABS: Bedside Glucose 89 mg/dL (70-110)
[2020-04-29 09:26] LABS: Bedside Glucose 138 mg/dL (70-110)
[2020-04-29 09:58] VITALS: BP 146/87; BP 153/87; PULSE 82; PULSE 85; RESP 16; RESP 18; TEMP 36.1; TEMP 36.3
[2020-04-29 11:41] LABS: Bedside Glucose 159 mg/dL (70-110)
[2020-04-30 09:33] VITALS: BP 154/88; PULSE 78; RESP 18; TEMP 36.6; BMI 39.9
[2020-04-30 10:21] LABS: Bedside Glucose 164 mg/dL (70-110)
[2020-04-30 10:24] VITALS: BP 144/86; BP 147/87; PULSE 76; PULSE 78; RESP 16; RESP 18; TEMP 36; TEMP 36.3
--- NOTE | 2020-04-30 11:53 | PCM.HBO.PN ---
History of Present Illness Date of Service: 04/30/20 Presenting Chief Complaint: Chronic right great toe ulceration with necrosis of bone/osteomyelitis?Peter grade 3 OLY SMITH is a 59 year old currently undergoing hyperbaric oxygen therapy for Non-pressure chronic ulcer of other part of right foot with necrosis of bone. Progress: Today represents 3rd hyperbaric oxygen treatment of 20 planned treatments. Tolerance of hyperbaric oxygen therapy: Hyperbaric oxygen treatment was provided as per the facility's protocol at 2.0 VALERIO and 100% oxygen for 90 minutes. There were no air breaks. The patient tolerated hyperbaric oxygen well, without complications or complaints. Upon emergence of the hyperbaric chamber the patient's vital signs remained stable. Pre and post blood glucose levels as documented. Patient was discharged in good condition. 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) Type 2 diabetes mellitus with diabetic polyneuropathy (Chronic) Type 2 diabetes mellitus with diabetic polyneuropathy (Chronic) Cellulitis of right foot (Chronic) Type 1 diabetes mellitus (Chronic) Malnutrition (Chronic) Delayed wound healing (Chronic) PVD (peripheral vascular disease) (Chronic) Ulcer of right foot with necrosis of muscle (Chronic) Hammer toe of right foot (Chronic) Ulcer of right foot with fat layer exposed (Chronic) Non-pressure chronic ulcer of right heel and midfoot with bone involvement without evidence of necrosis (Chronic) Diabetic ulcer of right foot (Chronic) Type 2 diabetes mellitus with diabetic polyneuropathy (Chronic) Diabetes mellitus type II, uncontrolled (Chronic) Obesity (BMI 30-39.9) (Chronic) Tobacco use (Chronic) Allergies/Adverse Reactions: Allergies No Known Allergies Allergy (Verified 02/27/20 12:53) Home Medications: Ambulatory Orders Medication Instructions Recorded Insulin Aspart [Novolog Flexpen 25 units SUBCUT TIDCM 02/27/20 ([facility])] Insulin Glargine [Lantus SoloStar 100 units SUBCUT BID 02/27/20 [facility]] Maternal Family History: - - Other with a history of colon cancer, metastatic. Paternal Family History: - - Father with a history of prostate cancer. Smoking Status: Never smoker Physical Exam Vital Signs Temp Pulse Resp BP 97.4 F L 78 18 144/86 H 04/30/20 10:24 04/30/20 10:24 04/30/20 10:24 04/30/20 10:24 Assessment/Plan Patient tolerating HBO treatments vital signs are stable we will continue treatments as scheduled Treatment Course Number Number of HBO Treatments 20 Ordered Treatment Course Number 1 Treatment # 3 Chamber # [id number] Chamber Type Monoplace HBO Diagnosis/Indication Diagnosis/Indication(s) for Right Diabetic Foot Ulcer,Standard/Conservative, Hyperbaric Therapy Diabetes w/ PVD Classification - Peter Grade 3 Grading (Diabetic Ulcer) Diabetes - Detail Diabetes Diabetes Type II Diabetes Control Uncontrolled Right Extremity Ulcer, Other part of Foot Treatment Plan VALERIO (Atmospheric Absolute) 2 Number of Minutes 90 Number of Air Breaks 0
[2020-04-30 12:25] LABS: Bedside Glucose 138 mg/dL (70-110)
--- NOTE | 2020-04-30 22:14 | PN.PCM_ITS ---
(1) Osteomyelitis Status: Acute Current Visit: Yes Code(s): M86.9 - Osteomyelitis, unspecified (2) Chronic ulcer of right foot with necrosis of bone Status: Chronic Current Visit: Yes Code(s): L97.514 - Non-pressure chronic ulcer of other part of right foot with necrosis of bone (3) Type 2 diabetes mellitus with diabetic polyneuropathy Status: Chronic Current Visit: Yes Qualifiers: Code(s): E11.42 - Type 2 diabetes mellitus with diabetic polyneuropathy (4) Delayed wound healing Status: Chronic Current Visit: Yes Code(s): T14.8XXD - Other injury of unspecified body region, subsequent encounter (5) PVD (peripheral vascular disease) Status: Chronic Current Visit: Yes Code(s): I73.9 - Peripheral vascular disease, unspecified Type of Wound Date of Service: 05/04/20 Chief Complaint: Chronic right great toe ulceration with necrosis of bone/osteomyelitis?Peter grade 3 History of Wound: 59-year-old white male with diabetes and other comorbidities was seen today for right foot ulcer. His antibiotics were updated to Augmentin and levofloxacin. He is also been seen by infectious disease specialist, Dr. Pike. He has a Peter grade 3 ulcer and has also been diagnosed with acute osteomyelitis clinically and with MRI evaluation. He denies fever, chill, nausea, vomiting, diarrhea or other side effects since he started on antibiotics. He has discomfort with walking. He has taken some time off work. He is on the schedule for hyperbaric oxygen therapy. He relates he changed his outer dressing and reapplied Steri-Strips yesterday. Progress of Wound: Improving - Physical Exam Vital Signs Temp Pulse Resp BP 97.4 F L 78 18 144/86 H 04/30/20 10:24 04/30/20 10:24 04/30/20 10:24 04/30/20 10:24 General: Alert, Oriented x3, Cooperative, No apparent distress HEENT: Atraumatic Extremities: No clubbing, Capillary Refill Less than 3 Seconds, No Calf Tenderness, Diminished Peripheral Pulses, Edema Skin: Ulcer/ Wound - No purulence, erythema, streaking, odor, infection. Granulation collection is noted with reduction of the ulcer depth and peripheral epithelialization Wound Measurements and Assessment WC - Nurse 1 - General Ulcer Measurement Start: 04/23/20 12:55 Freq: Status: Active Protocol: Activity Type Activity Date Activity User E-Sign Co-Sign Detail Recorded Client Recorded Date Recorded By Document 04/30/20 09:33 PL [id number] 04/30/20 09:38 PL 04/30/20 09:33 Wound Center Nurse 1 [Ulcer Assessment] #10 right great toe plantar -Combined with other wound No -Current Size (cm) - Length 1.5 -Current Size (cm) - Width 1.5 -Current Size (cm) - Depth 0.2 -Total Square Cm 2.25 -Photo Taken No -Epithelialization None Present -Tunneling No -Undermining/Tunneling No -Exudate Amt Small -Exudate Type Serosanguineous -Granulation Amt Large (67-100%) -Granulation Quality Hutchinson -Slough/Fibrin Yes -Necrosis Amt Small (1-33%) -Necrotic Tissue Type Adherent Slough -Texture (Belle-wound Skin Appearance) No Abnormality -Moisture (Belle-wound Skin Appearance No Abnormality ) -Color (Belle-wound Skin Appearance) No Abnormality -Temperature (Belle-wound Skin No Abnormality Appearance) (Pt Warm) -Ulcer Cleansing Rinsed/ Irrigated with Saline -Foul Odor after Cleansing No Musculoskeletal: No Tenderness to Palpation of Joints or Extremities, Muscle Wasting Neurological: - - Lack of epicritic sensation light touch is consistent with neuropathy Psych/Mental Status: Normal Affect, Appropriate Debridement Note Post-Debridement Measurements/Treatment WC - Nurse 2 - General Ulcer CM Notes Start: 04/23/20 12:55 Freq: Status: Active Protocol: Activity Type Activity Date Activity User E-Sign Co-Sign Detail Recorded Client Recorded Date Recorded By Document 04/23/20 13:48 ALEENA [id number] 04/23/20 13:51 ALEENA 04/23/20 13:48 Wound Center Nurse 2 #10 right great toe plantar -Time 13:49 -Correct Patient Yes -Correct Side, Site, Position Yes -Correct Procedure Yes -Procedure Performed Yes -Type of Procedure Debridement -Clinical Debridement Subcutaneous -Post Debridement Size (cm) - Length 1.1 -Post Debridement Size (cm) - Width 2.3 -Post Debridement Size (cm) - Depth 0.3 -Total Square (cm) 2.53 -Wound/Ulcer Outcome Not Healed -Ulcer Cleansing Rinsed/ Irrigated with Saline -Foul Odor after Cleansing No -Bioengineered Tissue Yes -Type of bioengineered Tissue EPICORD -Expiration Date 12/18/24 -Product Lot Number [id number] -Percent Used 100 -Saline Lot Number [id number] -Bleeding Controlled with Pressure -Offloading Yes -Type of Offloading Knee Walker -Treatment Response Procedure Tolerated Well Pain Scale: 0-10 Numeric Is Patient Pain Free? Yes Wound debrided: plantar hallux Laterality: Right Wound Grade/Stage: grade 3 Type of Debridement: Excisional debridement Anesthesia Used: 5% Lidocaine Gel Depth: in the subcutaneous layer Percentage of wound debrided: 100 Instrument Used: #15 blade Tissue Removed: fibrous, devitalized subcutaneous, biofilm, slough Severity: Fat Layer Exposed Amount of bleeding with debridement: Mild Bleeding Controlled with: Pressure Patient tolerated procedure well Assessment/Plan Active Problems Osteomyelitis (Acute) 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 Right great toe necrosis /gangrene to the outer tissue. Ulcer right hallux bone layer exposed (peter grade 3). osteomyelitis distal phalanx of hallux. Cellulitis and osteomyelitis right foot addressed with oral antibiotics. Hallux limitus Plan: I reviewed and discussed his case. The ulcer was debrided as noted in the clinical panel. Verbal consent was obtained for application of advanced wound healing product, epi-cord. This was applied according standard protocol was further secured in place with Steri-Strips and a wound veil. He was advised to keep this clean, dry, and intact until follow-up next week. I recommend this because he is high risk for continued amputation, infection, loss of limb and life due to his recurrent infections and tissue loss. This is medically necessary. His diagnostic data was reviewed and he did not have leukocytosis. His sedimentation rate was 44. His hemoglobin A1c was recently checked and was over 11%. His toe x-ray did not demonstrate any acute fracture dislocation or soft tissue emphysema or foreign body. His recent ankle x-ray did not demonstrate any fracture, dislocation, radiographic evidence of Charcot, soft tissue emphysema or foreign body. Significant small vessel calcification is seen. Subsequent MRI of the foot did confirm acute osteomyelitis of the distal phalanx of the hallux. He was advised to heel weight in the surgical shoe as recommended; he already has this. To avoid driving or any activity that continues to place pressure on this ulcer site. He relates he will repetitively uses his forefoot for driving and he also often places his foot next to a heater. I recommended offloading this more aggressively with a cam walker boot with dual density offloading Plastizote liners. He did get fitted for this at the foot and ankle center and understands proper use. This will also immobilize his tender ankle and help him control his ankle edema as well. Compliance was discussed which has been a challenge for him. I also recommend nutritional supplementation and a prescription for Tripp was provided. To improve glucose management. We discussed adequate protein intake and I answered his questions. I recommended eating real whole food diet to provide his body with the appropriate nutrients to heal his ulcer. I recommended a staff services manager consultation to help apply this on a daily basis. He is scheduled to see a staff services manager. His microbiology reports were reviewed and it appears he has multi-organism growth. To continue on Augmentin and levofloxacin. He was seen by infectious disease as well. We discussed wound care and antibiotics first with the addition of hyperbaric oxygen versus amputation including the indications and treatment options. The indications, benefits, anticipated course and management of hyperbaric oxygen therapy was discussed. He had an EF of about 45%. He is scheduled at this time. He understands he is at continued risk of limb loss and his success is compromised by his medical instability. He has been medically cleared and hopefully will be able to schedule today. I also recommend updating his noninvasive vascular studies and this has been scheduled. He had abnormal findings with calcification and noncompressible vessels. Given his recent rapid gangrenous finding a tissue loss I recommend a vascular surgery referral. A referral was provided see Dr. Olvera and input will be greatly appreciated.This was scheduled. I answered all his questions. To follow-up with the wound healing center in 1 week.
[2020-05-01 08:41] LABS: Bedside Glucose 237 mg/dL (70-110)
--- NOTE | 2020-05-01 09:21 | PCM.HBO.PN ---
History of Present Illness Date of Service: 05/01/20 Presenting Chief Complaint: Chronic right great toe ulceration with necrosis of bone/osteomyelitis?Peter grade 3 OLY SMITH is a 59 year old currently undergoing hyperbaric oxygen therapy for Non-pressure chronic ulcer of other part of right foot with necrosis of bone. Progress: Today represents 4th hyperbaric oxygen treatment of 20 planned treatments. Tolerance of hyperbaric oxygen therapy: Hyperbaric oxygen treatment was provided as per the facility's protocol at 2.0 VALERIO and 100% oxygen for 90 minutes. There were no air breaks. The patient tolerated hyperbaric oxygen well, without complications or complaints. Upon emergence of the hyperbaric chamber the patient's vital signs remained stable. Pre and post blood glucose levels as documented. Patient was discharged in good condition. 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) Type 2 diabetes mellitus with diabetic polyneuropathy (Chronic) Type 2 diabetes mellitus with diabetic polyneuropathy (Chronic) Cellulitis of right foot (Chronic) Type 1 diabetes mellitus (Chronic) Malnutrition (Chronic) Delayed wound healing (Chronic) PVD (peripheral vascular disease) (Chronic) Ulcer of right foot with necrosis of muscle (Chronic) Hammer toe of right foot (Chronic) Ulcer of right foot with fat layer exposed (Chronic) Non-pressure chronic ulcer of right heel and midfoot with bone involvement without evidence of necrosis (Chronic) Diabetic ulcer of right foot (Chronic) Type 2 diabetes mellitus with diabetic polyneuropathy (Chronic) Diabetes mellitus type II, uncontrolled (Chronic) Obesity (BMI 30-39.9) (Chronic) Tobacco use (Chronic) Allergies/Adverse Reactions: Allergies No Known Allergies Allergy (Verified 02/27/20 12:53) Home Medications: Ambulatory Orders Medication Instructions Recorded Insulin Aspart [Novolog Flexpen 25 units SUBCUT TIDCM 02/27/20 ([facility])] Insulin Glargine [Lantus SoloStar 100 units SUBCUT BID 02/27/20 Pen] Maternal Family History: - - Other with a history of colon cancer, metastatic. Paternal Family History: - - Father with a history of prostate cancer. Smoking Status: Never smoker Physical Exam Vital Signs Temp Pulse Resp BP 97.4 F L 78 18 144/86 H 04/30/20 10:24 04/30/20 10:24 04/30/20 10:24 04/30/20 10:24 General: Alert, Oriented x3, Cooperative, No apparent distress HEENT: Atraumatic, TM's Clear Lungs: Clear to auscultation, Normal air movement Cardiovascular: Regular rate, Regular Rhythm Psych/Mental Status: Normal Affect, Appropriate, Alert and oriented to time, place, person, mood and affect Assessment/Plan Active Problems Osteomyelitis (Acute) Chronic ulcer of right foot with necrosis of bone (Chronic) Type 2 diabetes mellitus with diabetic polyneuropathy (Chronic) Delayed wound healing (Chronic) PVD (peripheral vascular disease) (Chronic) Treatment Course Number Number of HBO Treatments 20 Ordered Treatment Course Number 1 Treatment # 4 Chamber # [id number] Chamber Type Monoplace HBO Diagnosis/Indication Diagnosis/Indication(s) for Right Diabetic Foot Ulcer,Standard/Conservative, Hyperbaric Therapy Diabetes w/ PVD Classification - Peter Grade 3 Grading (Diabetic Ulcer) Diabetes - Detail Diabetes Diabetes Type II Diabetes Control Uncontrolled Right Extremity Ulcer, Other part of Foot Treatment Plan VALERIO (Atmospheric Absolute) 2 Number of Minutes 90 Number of Air Breaks 0
[2020-05-01 11:05] LABS: Bedside Glucose 175 mg/dL (70-110)
[2020-05-01 11:22] VITALS: BP 132/75; BP 145/84; PULSE 75; PULSE 83; RESP 16; RESP 18; TEMP 35.4; TEMP 36
[2020-05-02 08:46] LABS: Bedside Glucose 281 mg/dL (70-110)
[2020-05-02 09:14] VITALS: BP 148/94; BP 156/84; PULSE 82; PULSE 86; RESP 16; TEMP 36; TEMP 36.7
[2020-05-02 09:15] LABS: Bedside Glucose 219 mg/dL (70-110)
[2020-05-02 11:25] LABS: Bedside Glucose 130 mg/dL (70-110)
--- NOTE | 2020-05-02 19:17 | PCM.HBO.PN ---
History of Present Illness Date of Service: 05/02/20 Presenting Chief Complaint: Chronic right great toe ulceration with necrosis of bone/osteomyelitis?Peter grade 3 OLY SMITH is a 59 year old currently undergoing hyperbaric oxygen therapy for Non-pressure chronic ulcer of other part of right foot with necrosis of bone. Progress: Today represents 5th hyperbaric oxygen treatment of 20 planned treatments. Tolerance of hyperbaric oxygen therapy: Hyperbaric oxygen treatment was provided as per the facility's protocol at 2.0 VALERIO and 100% oxygen for 90 minutes. There were no air breaks. The patient tolerated hyperbaric oxygen well, without complications or complaints. Upon emergence of the hyperbaric chamber the patient's vital signs remained stable. Pre and post blood glucose levels as documented. Patient was discharged in good condition. 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) Type 2 diabetes mellitus with diabetic polyneuropathy (Chronic) Type 2 diabetes mellitus with diabetic polyneuropathy (Chronic) Cellulitis of right foot (Chronic) Type 1 diabetes mellitus (Chronic) Malnutrition (Chronic) Delayed wound healing (Chronic) PVD (peripheral vascular disease) (Chronic) Ulcer of right foot with necrosis of muscle (Chronic) Hammer toe of right foot (Chronic) Ulcer of right foot with fat layer exposed (Chronic) Non-pressure chronic ulcer of right heel and midfoot with bone involvement without evidence of necrosis (Chronic) Diabetic ulcer of right foot (Chronic) Type 2 diabetes mellitus with diabetic polyneuropathy (Chronic) Diabetes mellitus type II, uncontrolled (Chronic) Obesity (BMI 30-39.9) (Chronic) Tobacco use (Chronic) Allergies/Adverse Reactions: Allergies No Known Allergies Allergy (Verified 02/27/20 12:53) Home Medications: Ambulatory Orders Medication Instructions Recorded Insulin Aspart [Novolog Flexpen 25 units SUBCUT TIDCM 02/27/20 ([facility])] Insulin Glargine [Lantus SoloStar 100 units SUBCUT BID 02/27/20 Pen] Maternal Family History: - - Other with a history of colon cancer, metastatic. Paternal Family History: - - Father with a history of prostate cancer. Smoking Status: Never smoker Tobacco Use: Non-smoker Alcohol: None Drugs: None Physical Exam Vital Signs Temp Pulse Resp BP 98.0 F 82 16 148/94 H 05/02/20 09:14 05/02/20 09:14 05/02/20 09:14 05/02/20 09:14 General: Alert, Oriented x3, Cooperative, No apparent distress Psych/Mental Status: Normal Affect, Appropriate Assessment/Plan Active Problems Osteomyelitis (Acute) Chronic ulcer of right foot with necrosis of bone (Chronic) Type 2 diabetes mellitus with diabetic polyneuropathy (Chronic) Delayed wound healing (Chronic) PVD (peripheral vascular disease) (Chronic) Patient tolerating HBO treatments vital signs are stable we will continue treatments as scheduled Treatment Course Number Number of HBO Treatments 20 Ordered Treatment Course Number 1 Treatment # 5 Chamber # [id number] Chamber Type Monoplace HBO Diagnosis/Indication Diagnosis/Indication(s) for Right Diabetic Foot Ulcer,Standard/Conservative, Hyperbaric Therapy Diabetes w/ PVD Classification - Peter Grade 3 Grading (Diabetic Ulcer) Diabetes - Detail Diabetes Diabetes Type II Diabetes Control Uncontrolled Right Extremity Ulcer, Other part of Foot Treatment Plan VALERIO (Atmospheric Absolute) 2 Number of Minutes 90 Number of Air Breaks 0
[2020-05-05 08:51] LABS: Bedside Glucose 283 mg/dL (70-110)
[2020-05-05 09:11] LABS: Bedside Glucose 283 mg/dL (70-110)
[2020-05-05 09:26] LABS: Bedside Glucose 283 mg/dL (70-110)
[2020-05-05 09:46] LABS: Bedside Glucose 260 mg/dL (70-110)
--- NOTE | 2020-05-05 15:53 | WC ---
Patient unable to complete HBO treatment today due to increased blood glucose reading. Patient stated gave self Tresiba insulin 80units and Novolog 25units at 0730 this morning and did not eat breakfast. BS at 0845 was 283. Patient gave self additional novolog 10units. Eve Paul NP notified. Eve Stated insulin peaks in one hour. Instructed to recheck if patient chooses to wait and update her as needed. Rechecked BS at 0905 with reading of 283. Eve Paul Notified. Rechecked BS at 0920 with reading of 283. Patient self medicated with Novolog 10 units. Hollie Paul Np notified. She instructed patient not to self medicate without DrKeven Cheung. Rechecked BS at 0940 with reading of 260. Eve Paul NP notified. Stated to cancel patient dive for today and reschedule for tomorrow due to hyperglycemia. Patient voiced understanding.
[2020-05-06 08:41] LABS: Bedside Glucose 97 mg/dL (70-110)
[2020-05-06 09:05] LABS: Bedside Glucose 145 mg/dL (70-110)
[2020-05-06 09:20] LABS: Bedside Glucose 144 mg/dL (70-110)
[2020-05-06 11:15] LABS: Bedside Glucose 148 mg/dL (70-110)
[2020-05-06 11:28] VITALS: BP 117/74; BP 149/84; PULSE 76; PULSE 81; RESP 16; RESP 18; TEMP 36; TEMP 36.3
--- NOTE | 2020-05-06 12:45 | PCM.HBO.PN ---
History of Present Illness Date of Service: 05/06/20 Presenting Chief Complaint: Chronic right great toe ulceration with necrosis of bone/osteomyelitis?Peter grade 3 OLY SMITH is a 59 year old currently undergoing hyperbaric oxygen therapy for a non-pressure chronic ulcer of the right foot with necrosis of bone/osteomyelitis - Peter Grade 3. Progress: Today represents 6th hyperbaric oxygen treatment of 20 planned treatments. Tolerance of hyperbaric oxygen therapy: Hyperbaric oxygen treatment was administered as per the facility's protocol at 2.0 VALERIO and 100% oxygen for 90 minutes. There were no air breaks. The patient tolerated hyperbaric oxygen well, without complications or complaints. Upon emergence of the hyperbaric chamber the patient's vital signs remained stable. Pre and post blood glucose levels as documented. Patient was discharged in good condition. 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) Type 2 diabetes mellitus with diabetic polyneuropathy (Chronic) Type 2 diabetes mellitus with diabetic polyneuropathy (Chronic) Cellulitis of right foot (Chronic) Type 1 diabetes mellitus (Chronic) Malnutrition (Chronic) Delayed wound healing (Chronic) PVD (peripheral vascular disease) (Chronic) Ulcer of right foot with necrosis of muscle (Chronic) Hammer toe of right foot (Chronic) Ulcer of right foot with fat layer exposed (Chronic) Non-pressure chronic ulcer of right heel and midfoot with bone involvement without evidence of necrosis (Chronic) Diabetic ulcer of right foot (Chronic) Type 2 diabetes mellitus with diabetic polyneuropathy (Chronic) Diabetes mellitus type II, uncontrolled (Chronic) Obesity (BMI 30-39.9) (Chronic) Tobacco use (Chronic) Allergies/Adverse Reactions: Allergies No Known Allergies Allergy (Verified 02/27/20 12:53) Home Medications: Ambulatory Orders Medication Instructions Recorded Insulin Aspart [Novolog Flexpen 25 units SUBCUT TIDCM 02/27/20 ([facility])] Insulin Glargine [Lantus SoloStar 100 units SUBCUT BID 02/27/20 Pen] Maternal Family History: - - Other with a history of colon cancer, metastatic. Paternal Family History: - - Father with a history of prostate cancer. Smoking Status: Never smoker Tobacco Use: Non-smoker Alcohol: None Drugs: None Physical Exam Vital Signs Temp Pulse Resp BP 97.4 F L 81 16 149/84 H 05/06/20 11:28 05/06/20 11:28 05/06/20 11:28 05/06/20 11:28 General: Alert, Oriented x3, Cooperative, No apparent distress, Well developed, Well nourished HEENT: Atraumatic, PERRLA, EOMI, Normocephalic Lungs: Normal air movement Psych/Mental Status: Normal Affect, Appropriate, Alert and oriented to time, place, person, mood and affect Assessment/Plan Active Problems Osteomyelitis (Acute) Chronic ulcer of right foot with necrosis of bone (Chronic) Type 2 diabetes mellitus with diabetic polyneuropathy (Chronic) Delayed wound healing (Chronic) PVD (peripheral vascular disease) (Chronic) The patient appears to be tolerating hyperbaric oxygen therapy well, which will be continued as per the patient's medical plan. Treatment Course Number Number of HBO Treatments 20 Ordered Treatment Course Number 1 Treatment # 6 Chamber # 1 Chamber Type Monoplace HBO Diagnosis/Indication Diagnosis/Indication(s) for Right Diabetic Foot Ulcer,Standard/Conservative, Hyperbaric Therapy Diabetes w/ PVD Classification - Peter Grade 3 Grading (Diabetic Ulcer) Diabetes - Detail Diabetes Diabetes Type II Diabetes Control Uncontrolled Right Extremity Ulcer, Other part of Foot Treatment Plan VALERIO (Atmospheric Absolute) 2 Number of Minutes 90 Number of Air Breaks 0
[2020-05-07 08:41] LABS: Bedside Glucose 184 mg/dL (70-110)
[2020-05-07 10:50] VITALS: BP 142/79; BP 152/96; PULSE 83; PULSE 88; RESP 18; TEMP 36.4; TEMP 36.8
[2020-05-07 10:51] LABS: Bedside Glucose 180 mg/dL (70-110)
[2020-05-07 11:05] VITALS: BP 142/79; PULSE 83; RESP 18; TEMP 36.8; BMI 39.9
--- NOTE | 2020-05-07 11:11 | WC ---
EPICORD LEFT INTACT
--- NOTE | 2020-05-07 11:19 | PCM.HBO.PN ---
History of Present Illness Date of Service: 05/07/20 Presenting Chief Complaint: Chronic right great toe ulceration with necrosis of bone/osteomyelitis?Peter grade 3 OLY SMITH is a 59 year old currently undergoing hyperbaric oxygen therapy for a non-pressure chronic ulcer of the right foot with necrosis of bone/osteomyelitis - Peter Grade 3. Progress: Today represents the 7th hyperbaric oxygen treatment of 20 planned treatments. Tolerance of hyperbaric oxygen therapy: Hyperbaric oxygen treatment was administered as per the facility's protocol at 2.0 VALERIO and 100% oxygen for 90 minutes. There were no air breaks. The patient tolerated hyperbaric oxygen well, without complications or complaints. Upon emergence of the hyperbaric chamber the patient's vital signs remained stable. Pre and post blood glucose levels as documented. Patient was discharged in good condition. 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) Type 2 diabetes mellitus with diabetic polyneuropathy (Chronic) Type 2 diabetes mellitus with diabetic polyneuropathy (Chronic) Cellulitis of right foot (Chronic) Type 1 diabetes mellitus (Chronic) Malnutrition (Chronic) Delayed wound healing (Chronic) PVD (peripheral vascular disease) (Chronic) Ulcer of right foot with necrosis of muscle (Chronic) Hammer toe of right foot (Chronic) Ulcer of right foot with fat layer exposed (Chronic) Non-pressure chronic ulcer of right heel and midfoot with bone involvement without evidence of necrosis (Chronic) Diabetic ulcer of right foot (Chronic) Type 2 diabetes mellitus with diabetic polyneuropathy (Chronic) Diabetes mellitus type II, uncontrolled (Chronic) Obesity (BMI 30-39.9) (Chronic) Tobacco use (Chronic) Allergies/Adverse Reactions: Allergies No Known Allergies Allergy (Verified 02/27/20 12:53) Home Medications: Ambulatory Orders Medication Instructions Recorded Insulin Aspart [Novolog Flexpen 25 units SUBCUT TIDCM 02/27/20 ([facility])] Insulin Glargine [Lantus SoloStar 100 units SUBCUT BID 02/27/20 Pen] Maternal Family History: - - Other with a history of colon cancer, metastatic. Paternal Family History: - - Father with a history of prostate cancer. Smoking Status: Never smoker Tobacco Use: Non-smoker Alcohol: None Drugs: None Physical Exam Vital Signs Temp Pulse Resp BP 98.2 F 83 18 142/79 H 05/07/20 11:05 05/07/20 11:05 05/07/20 11:05 05/07/20 11:05 Assessment/Plan Active Problems Osteomyelitis (Acute) Chronic ulcer of right foot with necrosis of bone (Chronic) Type 2 diabetes mellitus with diabetic polyneuropathy (Chronic) Delayed wound healing (Chronic) PVD (peripheral vascular disease) (Chronic) The patient appears to be tolerating hyperbaric oxygen therapy well, which will be continued as per the patient's medical plan. Treatment Course Number Number of HBO Treatments 20 Ordered Treatment Course Number 1 Treatment # 7 Chamber # [id number] Chamber Type Monoplace HBO Diagnosis/Indication Diagnosis/Indication(s) for Right Diabetic Foot Ulcer Hyperbaric Therapy Classification - Peter Grade 3 Grading (Diabetic Ulcer) Diabetes - Detail Diabetes Diabetes Type II Diabetes Control Uncontrolled Right Extremity Ulcer, Other part of Foot Treatment Plan VALERIO (Atmospheric Absolute) 2.0 Number of Minutes 90 Number of Air Breaks 0
--- NOTE | 2020-05-07 16:03 | PN.PCM_ITS ---
(1) Osteomyelitis Status: Acute Current Visit: Yes Code(s): M86.9 - Osteomyelitis, unspecified (2) Chronic ulcer of right foot with necrosis of bone Status: Chronic Current Visit: Yes Code(s): L97.514 - Non-pressure chronic ulcer of other part of right foot with necrosis of bone (3) Type 2 diabetes mellitus with diabetic polyneuropathy Status: Chronic Current Visit: Yes Qualifiers: Code(s): E11.42 - Type 2 diabetes mellitus with diabetic polyneuropathy (4) Delayed wound healing Status: Chronic Current Visit: Yes Code(s): T14.8XXD - Other injury of unspecified body region, subsequent encounter (5) PVD (peripheral vascular disease) Status: Chronic Current Visit: Yes Code(s): I73.9 - Peripheral vascular disease, unspecified Type of Wound Date of Service: 05/07/20 Chief Complaint: Chronic right great toe ulceration with necrosis of bone/osteomyelitis?Peter grade 3 History of Wound: 59-year-old white male with diabetes and other comorbidities was seen today for right foot ulcer. His antibiotics were updated to Augmentin and levofloxacin. He is also been seen by infectious disease specialist, Dr. Pike. He has a Peter grade 3 ulcer and has also been diagnosed with acute osteomyelitis clinically and with MRI evaluation. He denies fever, chill, nausea, vomiting, diarrhea or other side effects since he started on antibiotics. He has been undergoing hyperbaric oxygen therapy treatment. He had an epi-cord applied last week and this has remained intact. He relates he does not wear shoes at home and walks around with just his dressing on. He tries to stay on his heel. He is surprised to hear that his dressing is black with dirt. Progress of Wound: Stable - Physical Exam Vital Signs Temp Pulse Resp BP 98.2 F 83 18 142/79 H 05/07/20 11:05 05/07/20 11:05 05/07/20 11:05 05/07/20 11:05 General: Alert, Oriented x3, Cooperative HEENT: Atraumatic Extremities: No cyanosis, Capillary Refill Less than 3 Seconds, No Calf Tenderness, Diminished Peripheral Pulses, Edema - Decreased Skin: Ulcer/ Wound - No purulence, erythema, streaking, odor, infection. The epi-cord remains intact and is secured with a wound veil and Steri-Strips. The adjacent skin is atrophic. There is no necrosis or deep tissue exposure, - - The outside of his dressing is caked with black dirt and an excessive amount Wound Measurements and Assessment - Nurse 1 - General Ulcer Measurement Start: 04/23/20 12:55 Freq: Status: Active Protocol: Activity Type Activity Date Activity User E-Sign Co-Sign Detail Recorded Client Recorded Date Recorded By Document 05/07/20 11:05 [facility] [id number] 05/07/20 11:11 [facility] 05/07/20 11:05 Wound Center Nurse 1 [Ulcer Assessment] #10 right great toe plantar -Combined with other wound No -Current Size (cm) - Length 0.1 -Current Size (cm) - Width 0.1 -Current Size (cm) - Depth 0.1 -Total Square Cm 0.01 - Nurse 2 - General Ulcer CM Notes Start: 05/05/20 09:49 Freq: Status: Active Protocol: Activity Type Activity Date Activity User E-Sign Co-Sign Detail Recorded Client Recorded Date Recorded By Document 05/07/20 11:20 [id number] 05/07/20 11:20 05/07/20 11:20 Wound Center Nurse 2 [Procedure/Treatment] -Correct Patient No -Correct Side, Site, Position No -Correct Procedure No -Procedure Performed No -Tunneling No -Undermining/Tunneling No -Circular Undermining No -Wound/Ulcer Outcome Not Healed [See Physician Procedure note for Specifics] Pain Scale: 0-10 Numeric [Pain] -Is Patient Pain Free? Yes - Nurse 3 - General Ulcer D/C NN Start: 05/05/20 23:20 Freq: Status: Active Protocol: Activity Type Activity Date Activity User E-Sign Co-Sign Detail Recorded Client Recorded Date Recorded By Document 05/07/20 11:36 [facility] [id number] 05/07/20 11:37 [facility] 05/07/20 11:36 Wound Care Nurse 3 [Wound Dressing] #10 right great toe plantar -Other Dressing EPICORD LEFT IN PLACE PER DR GARCIA -Primary Dressing Covered/Secured Dry Gauze, with Secured with Tape [Compression Applied] Right -Tubular Bandage Single Layer -Size of Tubigrip Used Size E -Size E ($) 1 [Post Procedure Tolerated] -Treatment Response Procedure Tolerated Well Pain Scale: 0-10 Numeric [Pain] -Is Patient Pain Free? Yes - Visit Discharge [Visit Discharge Information] -Discharge Condition Stable -Ambulatory Status Ambulatory,Cane -Transportation Private Auto Musculoskeletal: No Tenderness to Palpation of Joints or Extremities, Muscle Wasting Neurological: - - Lack of normal epicritic sensation light touch is consistent with his neuropathy status Psych/Mental Status: Normal Affect, Appropriate Debridement Note Post-Debridement Measurements/Treatment - Nurse 2 - General Ulcer CM Notes Start: 05/05/20 09:49 Freq: Status: Active Protocol: Activity Type Activity Date Activity User E-Sign Co-Sign Detail Recorded Client Recorded Date Recorded By Document 05/07/20 11:20 [id number] 05/07/20 11:20 05/07/20 11:20 Wound Center Nurse 2 #10 right great toe plantar -Correct Patient No -Correct Side, Site, Position No -Correct Procedure No -Procedure Performed No -Tunneling No -Undermining/Tunneling No -Circular Undermining No -Wound/Ulcer Outcome Not Healed Pain Scale: 0-10 Numeric Is Patient Pain Free? Yes - Nurse 3 - General Ulcer D/C NN Start: 05/05/20 23:20 Freq: Status: Active Protocol: Activity Type Activity Date Activity User E-Sign Co-Sign Detail Recorded Client Recorded Date Recorded By Document 05/07/20 11:36 [facility] [id number] 05/07/20 11:37 [facility] 05/07/20 11:36 Wound Care Nurse 3 #10 right great toe plantar -Other Dressing EPICORD LEFT IN PLACE PER DR GARCIA -Primary Dressing Covered/Secured with Dry Gauze, Secured with Tape Right -Tubular Bandage Single Layer -Size of Tubigrip Used Size E -Size E ($) 1 Treatment Response Procedure Tolerated Well Pain Scale: 0-10 Numeric Is Patient Pain Free? Yes - Visit Discharge Discharge Condition Stable Ambulatory Status Ambulatory,Cane Transportation Private Auto No debridement was completed today - Epi-cord continues to incorporate. Debridement will be considered again next week Assessment/Plan Active Problems Osteomyelitis (Acute) 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 Right great toe necrosis /gangrene to the outer tissue. Ulcer right hallux bone layer exposed (peter grade 3). osteomyelitis distal phalanx of hallux. Cellulitis and osteomyelitis right foot addressed with oral antibiotics. Hallux limitus Plan: I reviewed and discussed his case. The ulcer was not debrided today. Epi-cord continues to incorporate and additional debridement and reapplication will be considered next week. A secondary dressing was reapplied. He was advised to keep this clean, dry, and intact until follow-up next week. I recommend this because he is high risk for continued amputation, infection, loss of limb and life due to his recurrent infections and tissue loss. This is medically necessary. His diagnostic data was reviewed and he did not have leukocytosis. His sedimentation rate was 44. His hemoglobin A1c was recently checked and was over 11%. His toe x-ray did not demonstrate any acute fracture dislocation or soft tissue emphysema or foreign body. His recent ankle x-ray did not demonstrate any fracture, dislocation, radiographic evidence of Charcot, soft tissue emphysema or foreign body. Significant small vessel calcification is seen. Subsequent MRI of the foot did confirm acute osteomyelitis of the distal phalanx of the hallux. He was advised to heel weight in the surgical shoe as recommended; he already has this. To avoid driving or any activity that continues to place pressure on this ulcer site. He relates he will repetitively uses his forefoot for driving and he also often places his foot next to a heater. I recommended offloading this more ag gressively with a cam walker boot with dual density offloading Plastizote liners. He did get fitted for this at the foot and ankle center and understands proper use. His dressing is extremely soiled and compliance was reviewed. I also recommend nutritional supplementation and a prescription for Tripp was provided. To improve glucose management. We discussed adequate protein intake and I answered his questions. To continue with improved nutrition to improve wellbeing and glycemic control. He is scheduled to see a family practice doctor. His microbiology reports were reviewed and it appears he has multi-organism growth. To continue on Augmentin and levofloxacin. He was seen by infectious disease as well. We discussed wound care and antibiotics first with the addition of hyperbaric oxygen versus amputation including the indications and treatment options. The indications, benefits, anticipated course and management of hyperbaric oxygen therapy was discussed. He had an EF of about 45%. He is scheduled at this time. He understands he is at continued risk of limb loss and his success is compromised by his medical instability. He is started hyperbaric oxygen therapy and this is going well. He was advised to continue. I also recommend updating his noninvasive vascular studies and this has been scheduled. He had abnormal findings with calcification and noncompressible vessels. Given his recent rapid gangrenous finding a tissue loss I recommend a vascular surgery referral. A referral was provided see Dr. Olvera and input will be greatly appreciated.This was scheduled. I answered all his questions. To follow-up with the wound healing center in 1 week.
[2020-05-08 08:30] LABS: Bedside Glucose 147 mg/dL (70-110)
[2020-05-08 09:26] VITALS: BP 143/92; BP 150/97; PULSE 84; PULSE 86; RESP 18; RESP 20; TEMP 36.1; TEMP 36.3
[2020-05-08 11:15] LABS: Bedside Glucose 163 mg/dL (70-110)
--- NOTE | 2020-05-08 13:23 | HBO.PN.PCM_ITS ---
History of Present Illness Date of Service: 05/08/20 Presenting Chief Complaint: Chronic right great toe ulceration with necrosis of bone/osteomyelitis?Peter grade 3 OLY SMITH is a 59 year old currently undergoing hyperbaric oxygen therapy for a non-pressure chronic ulcer of the right foot with necrosis of bone/osteomyelitis - Peter Grade 3. Progress: Today represents the 8th hyperbaric oxygen treatment of 20 planned treatments. Tolerance of hyperbaric oxygen therapy: Hyperbaric oxygen treatment was administered as per the facility's protocol at 2.0 VALERIO and 100% oxygen for 90 minutes. There were no air breaks. The patient tolerated hyperbaric oxygen well, without complications or complaints. Upon emergence of the hyperbaric chamber the patient's vital signs remained stable. Pre and post blood glucose levels as documented. Patient was discharged in good condition. 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) Type 2 diabetes mellitus with diabetic polyneuropathy (Chronic) Type 2 diabetes mellitus with diabetic polyneuropathy (Chronic) Cellulitis of right foot (Chronic) Type 1 diabetes mellitus (Chronic) Malnutrition (Chronic) Delayed wound healing (Chronic) PVD (peripheral vascular disease) (Chronic) Ulcer of right foot with necrosis of muscle (Chronic) Hammer toe of right foot (Chronic) Ulcer of right foot with fat layer exposed (Chronic) Non-pressure chronic ulcer of right heel and midfoot with bone involvement without evidence of necrosis (Chronic) Diabetic ulcer of right foot (Chronic) Type 2 diabetes mellitus with diabetic polyneuropathy (Chronic) Diabetes mellitus type II, uncontrolled (Chronic) Obesity (BMI 30-39.9) (Chronic) Tobacco use (Chronic) Allergies/Adverse Reactions: Allergies No Known Allergies Allergy (Verified 02/27/20 12:53) Home Medications: Ambulatory Orders Medication Instructions Recorded Insulin Aspart [Novolog Flexpen 25 units SUBCUT TIDCM 02/27/20 ([facility])] Insulin Glargine [Lantus SoloStar 100 units SUBCUT BID 02/27/20 Pen] Maternal Family History: - - Other with a history of colon cancer, metastatic. Paternal Family History: - - Father with a history of prostate cancer. Smoking Status: Never smoker Tobacco Use: Non-smoker Alcohol: None Drugs: None Physical Exam Vital Signs Temp Pulse Resp BP 97.4 F L 86 20 H 143/92 H 05/08/20 09:26 05/08/20 09:26 05/08/20 09:26 05/08/20 09:26 General: Alert, Oriented x3, Cooperative, No apparent distress HEENT: Atraumatic, Normocephalic Lungs: Normal air movement Psych/Mental Status: Normal Affect Assessment/Plan Active Problems Osteomyelitis (Acute) Chronic ulcer of right foot with necrosis of bone (Chronic) Type 2 diabetes mellitus with diabetic polyneuropathy (Chronic) Delayed wound healing (Chronic) PVD (peripheral vascular disease) (Chronic) The patient appears to be tolerating hyperbaric oxygen therapy well, which will be continued as per the patient's medical plan. Treatment Course Number Number of HBO Treatments 20 Ordered Treatment Course Number 1 Treatment # 8 Chamber # [id number] Chamber Type Monoplace HBO Diagnosis/Indication Diagnosis/Indication(s) for Right Diabetic Foot Ulcer,Standard/Conservative Hyperbaric Therapy Classification - Peter Grade 3 Grading (Diabetic Ulcer) Diabetes - Detail Diabetes Diabetes Type II Diabetes Control Uncontrolled Right Extremity Ulcer, Other part of Foot Treatment Plan VALERIO (Atmospheric Absolute) 2 Number of Minutes 90 Number of Air Breaks 0 HBO Supervision.
[2020-05-09 08:40] LABS: Bedside Glucose 166 mg/dL (70-110)
[2020-05-09 10:51] LABS: Bedside Glucose 165 mg/dL (70-110)
[2020-05-09 11:25] VITALS: BP 136/81; BP 149/91; PULSE 86; PULSE 89; RESP 18; TEMP 36.3; TEMP 36.6
--- NOTE | 2020-05-09 13:15 | HBO.PN.PCM_ITS ---
History of Present Illness Date of Service: 05/09/20 Presenting Chief Complaint: Chronic right great toe ulceration with necrosis of bone/osteomyelitis?Peter grade 3 OLY SMITH is a 59 year old currently undergoing hyperbaric oxygen therapy for a non-pressure chronic ulcer of the right foot with necrosis of bone/osteomyelitis - Peter Grade 3. Progress: Today represents the 9th hyperbaric oxygen treatment of 20 planned treatments. Tolerance of hyperbaric oxygen therapy: Hyperbaric oxygen treatment was administered as per the facility's protocol at 2.0 VALERIO and 100% oxygen for 90 minutes. There were no air breaks. The patient tolerated hyperbaric oxygen well, without complications or complaints. Upon emergence of the hyperbaric chamber the patient's vital signs remained stable. Pre and post blood glucose levels as documented. Patient was discharged in good condition. 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) Type 2 diabetes mellitus with diabetic polyneuropathy (Chronic) Type 2 diabetes mellitus with diabetic polyneuropathy (Chronic) Cellulitis of right foot (Chronic) Type 1 diabetes mellitus (Chronic) Malnutrition (Chronic) Delayed wound healing (Chronic) PVD (peripheral vascular disease) (Chronic) Ulcer of right foot with necrosis of muscle (Chronic) Hammer toe of right foot (Chronic) Ulcer of right foot with fat layer exposed (Chronic) Non-pressure chronic ulcer of right heel and midfoot with bone involvement without evidence of necrosis (Chronic) Diabetic ulcer of right foot (Chronic) Type 2 diabetes mellitus with diabetic polyneuropathy (Chronic) Diabetes mellitus type II, uncontrolled (Chronic) Obesity (BMI 30-39.9) (Chronic) Tobacco use (Chronic) Allergies/Adverse Reactions: Allergies No Known Allergies Allergy (Verified 02/27/20 12:53) Home Medications: Ambulatory Orders Medication Instructions Recorded Insulin Aspart [Novolog Flexpen 25 units SUBCUT TIDCM 02/27/20 ([facility])] Insulin Glargine [Lantus SoloStar 100 units SUBCUT BID 02/27/20 Pen] Maternal Family History: - - Other with a history of colon cancer, metastatic. Paternal Family History: - - Father with a history of prostate cancer. Smoking Status: Never smoker Tobacco Use: Non-smoker Alcohol: None Drugs: None Physical Exam Vital Signs Temp Pulse Resp BP 97.4 F L 89 18 136/81 H 05/09/20 11:25 05/09/20 11:25 05/09/20 11:25 05/09/20 11:25 General: Alert, Oriented x3, Cooperative, No apparent distress Psych/Mental Status: Normal Affect, Appropriate Assessment/Plan Active Problems Osteomyelitis (Acute) Chronic ulcer of right foot with necrosis of bone (Chronic) Type 2 diabetes mellitus with diabetic polyneuropathy (Chronic) Delayed wound healing (Chronic) PVD (peripheral vascular disease) (Chronic) The patient appears to be tolerating hyperbaric oxygen therapy well, which will be continued as per the patient's medical plan. Treatment Course Number Number of HBO Treatments 20 Ordered Treatment Course Number 1 Treatment # 9 Chamber # [id number] Chamber Type Monoplace HBO Diagnosis/Indication Diagnosis/Indication(s) for Right Diabetic Foot Ulcer Hyperbaric Therapy Classification - Peter Grade 3 Grading (Diabetic Ulcer) Diabetes - Detail Diabetes Diabetes Type II Diabetes Control Uncontrolled Right Extremity Ulcer, Other part of Foot Treatment Plan VALERIO (Atmospheric Absolute) 2.0 Number of Minutes 90 Number of Air Breaks 0
[2020-05-12 08:40] LABS: Bedside Glucose 153 mg/dL (70-110)
[2020-05-12 09:15] VITALS: BP 157/89; BP 164/96; PULSE 83; PULSE 88; RESP 16; RESP 18; TEMP 36.3
--- NOTE | 2020-05-12 10:33 | PCM.HBO.PN ---
History of Present Illness Date of Service: 05/12/20 Presenting Chief Complaint: Chronic right great toe ulceration with necrosis of bone/osteomyelitis?Peter grade 3 OLY SMITH is a 59 year old currently undergoing hyperbaric oxygen therapy for a non-pressure chronic ulcer of the right foot with necrosis of bone/osteomyelitis - Peter Grade 3. Progress: Today represents the 10th hyperbaric oxygen treatment of 20 planned treatments. Tolerance of hyperbaric oxygen therapy: Hyperbaric oxygen treatment was administered as per the facility's protocol at 2.0 VALERIO and 100% oxygen for 90 minutes. There were no air breaks. The patient tolerated hyperbaric oxygen well, without complications or complaints. Upon emergence of the hyperbaric chamber the patient's vital signs remained stable. Pre and post blood glucose levels as documented. Patient was discharged in good condition. 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) Type 2 diabetes mellitus with diabetic polyneuropathy (Chronic) Type 2 diabetes mellitus with diabetic polyneuropathy (Chronic) Cellulitis of right foot (Chronic) Type 1 diabetes mellitus (Chronic) Malnutrition (Chronic) Delayed wound healing (Chronic) PVD (peripheral vascular disease) (Chronic) Ulcer of right foot with necrosis of muscle (Chronic) Hammer toe of right foot (Chronic) Ulcer of right foot with fat layer exposed (Chronic) Non-pressure chronic ulcer of right heel and midfoot with bone involvement without evidence of necrosis (Chronic) Diabetic ulcer of right foot (Chronic) Type 2 diabetes mellitus with diabetic polyneuropathy (Chronic) Diabetes mellitus type II, uncontrolled (Chronic) Obesity (BMI 30-39.9) (Chronic) Tobacco use (Chronic) Allergies/Adverse Reactions: Allergies No Known Allergies Allergy (Verified 02/27/20 12:53) Home Medications: Ambulatory Orders Medication Instructions Recorded Insulin Aspart [Novolog Flexpen 25 units SUBCUT TIDCM 02/27/20 ([facility])] Insulin Glargine [Lantus SoloStar 100 units SUBCUT BID 02/27/20 Pen] Maternal Family History: - - Other with a history of colon cancer, metastatic. Paternal Family History: - - Father with a history of prostate cancer. Smoking Status: Never smoker Tobacco Use: Non-smoker Alcohol: None Drugs: None Physical Exam Vital Signs Temp Pulse Resp BP 97.3 F L 88 18 164/96 H 05/12/20 09:15 05/12/20 09:15 05/12/20 09:15 05/12/20 09:15 General: Alert, Oriented x3, Cooperative, No apparent distress HEENT: Atraumatic, TM's Clear Lungs: Clear to auscultation, Normal air movement Cardiovascular: Regular rate, Regular Rhythm Psych/Mental Status: Normal Affect, Appropriate, Alert and oriented to time, place, person, mood and affect Assessment/Plan Active Problems Osteomyelitis (Acute) Chronic ulcer of right foot with necrosis of bone (Chronic) Type 2 diabetes mellitus with diabetic polyneuropathy (Chronic) Delayed wound healing (Chronic) PVD (peripheral vascular disease) (Chronic) Treatment Course Number Number of HBO Treatments 20 Ordered Treatment Course Number 1 Treatment # 10 Chamber # [id number] Chamber Type Monoplace HBO Diagnosis/Indication Diagnosis/Indication(s) for Right Diabetic Foot Ulcer Hyperbaric Therapy Classification - Peter Grade 3 Grading (Diabetic Ulcer) Diabetes - Detail Diabetes Diabetes Type II Diabetes Control Uncontrolled Right Extremity Ulcer, Other part of Foot Treatment Plan VALERIO (Atmospheric Absolute) 2 Number of Minutes 0 Number of Air Breaks 90
[2020-05-12 11:10] LABS: Bedside Glucose 181 mg/dL (70-110)
[2020-05-13 09:10] LABS: Bedside Glucose 191 mg/dL (70-110)
[2020-05-13 10:47] VITALS: BP 132/81; BP 143/78; PULSE 79; PULSE 85; RESP 16; TEMP 36.3; TEMP 36.9
[2020-05-13 10:51] LABS: Bedside Glucose 206 mg/dL (70-110)
--- NOTE | 2020-05-13 12:49 | HBO.PN.PCM_ITS ---
History of Present Illness Date of Service: 05/13/20 Presenting Chief Complaint: Chronic right great toe ulceration with necrosis of bone/osteomyelitis?Peter grade 3 OLY SMITH is a 59 year old currently undergoing hyperbaric oxygen therapy for a non-pressure chronic ulcer of the right foot with necrosis of bone/osteomyelitis - Peter Grade 3. Progress: Today represents the 11th hyperbaric oxygen treatment of 20 planned treatments. Tolerance of hyperbaric oxygen therapy: Hyperbaric oxygen treatment was administered as per the facility's protocol at 2.0 VALERIO and 100% oxygen for 90 minutes. There were no air breaks. The patient tolerated hyperbaric oxygen well, without complications or complaints. Upon emergence of the hyperbaric chamber the patient's vital signs remained stable. Pre and post blood glucose levels as documented. Patient was discharged in good condition. 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) Type 2 diabetes mellitus with diabetic polyneuropathy (Chronic) Type 2 diabetes mellitus with diabetic polyneuropathy (Chronic) Cellulitis of right foot (Chronic) Type 1 diabetes mellitus (Chronic) Malnutrition (Chronic) Delayed wound healing (Chronic) PVD (peripheral vascular disease) (Chronic) Ulcer of right foot with necrosis of muscle (Chronic) Hammer toe of right foot (Chronic) Ulcer of right foot with fat layer exposed (Chronic) Non-pressure chronic ulcer of right heel and midfoot with bone involvement without evidence of necrosis (Chronic) Diabetic ulcer of right foot (Chronic) Type 2 diabetes mellitus with diabetic polyneuropathy (Chronic) Diabetes mellitus type II, uncontrolled (Chronic) Obesity (BMI 30-39.9) (Chronic) Tobacco use (Chronic) Allergies/Adverse Reactions: Allergies No Known Allergies Allergy (Verified 02/27/20 12:53) Home Medications: Ambulatory Orders Medication Instructions Recorded Insulin Aspart [Novolog Flexpen 25 units SUBCUT TIDCM 02/27/20 ([facility])] Insulin Glargine [Lantus SoloStar 100 units SUBCUT BID 02/27/20 Pen] Maternal Family History: - - Other with a history of colon cancer, metastatic. Paternal Family History: - - Father with a history of prostate cancer. Smoking Status: Never smoker Tobacco Use: Non-smoker Alcohol: None Drugs: None Physical Exam Vital Signs Temp Pulse Resp BP 98.4 F 85 16 143/78 H 05/13/20 10:47 05/13/20 10:47 05/13/20 10:47 05/13/20 10:47 General: Alert, Oriented x3, Cooperative, No apparent distress, Well developed, Well nourished HEENT: Atraumatic, PERRLA, EOMI, Normocephalic Lungs: Normal air movement Psych/Mental Status: Normal Affect, Appropriate, Alert and oriented to time, place, person, mood and affect Assessment/Plan Active Problems Osteomyelitis (Acute) Chronic ulcer of right foot with necrosis of bone (Chronic) Type 2 diabetes mellitus with diabetic polyneuropathy (Chronic) Delayed wound healing (Chronic) PVD (peripheral vascular disease) (Chronic) The patient appears to be tolerating hyperbaric oxygen therapy well, which will be continued as per the patient's medical plan. Treatment Course Number Number of HBO Treatments 20 Ordered Treatment Course Number 1 Treatment # 11 Chamber # 1 Chamber Type Monoplace HBO Diagnosis/Indication Diagnosis/Indication(s) for Right Diabetic Foot Ulcer Hyperbaric Therapy Classification - Peter Grade 3 Grading (Diabetic Ulcer) Diabetes - Detail Diabetes Diabetes Type II Diabetes Control Uncontrolled Right Extremity Ulcer, Other part of Foot Treatment Plan VALERIO (Atmospheric Absolute) 2 Number of Minutes 90 Number of Air Breaks 90
[2020-05-14 09:01] LABS: Bedside Glucose 157 mg/dL (70-110)
[2020-05-14 11:11] LABS: Bedside Glucose 174 mg/dL (70-110)
[2020-05-14 11:14] VITALS: BP 135/81; BP 143/95; PULSE 87; PULSE 89; RESP 18; TEMP 35.6; TEMP 36.7
[2020-05-14 11:34] VITALS: BP 143/85; PULSE 87; RESP 18; TEMP 36.7; BMI 39.9
--- NOTE | 2020-05-14 12:30 | PCM.HBO.PN ---
History of Present Illness Date of Service: 05/14/20 Presenting Chief Complaint: Chronic right great toe ulceration with necrosis of bone/osteomyelitis?Peter grade 3 OLY SMITH is a 59 year old currently undergoing hyperbaric oxygen therapy for a non-pressure chronic ulcer of the right foot with necrosis of bone/osteomyelitis - Peter Grade 3. Progress: Today represents the 12th hyperbaric oxygen treatment of 20 planned treatments. Tolerance of hyperbaric oxygen therapy: Hyperbaric oxygen treatment was administered as per the facility's protocol at 2.0 VALERIO and 100% oxygen for 90 minutes. There were no air breaks. The patient tolerated hyperbaric oxygen well, without complications or complaints. Upon emergence of the hyperbaric chamber the patient's vital signs remained stable. Pre and post blood glucose levels as documented. Patient was discharged in good condition. 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) Type 2 diabetes mellitus with diabetic polyneuropathy (Chronic) Type 2 diabetes mellitus with diabetic polyneuropathy (Chronic) Cellulitis of right foot (Chronic) Type 1 diabetes mellitus (Chronic) Malnutrition (Chronic) Delayed wound healing (Chronic) PVD (peripheral vascular disease) (Chronic) Ulcer of right foot with necrosis of muscle (Chronic) Hammer toe of right foot (Chronic) Ulcer of right foot with fat layer exposed (Chronic) Non-pressure chronic ulcer of right heel and midfoot with bone involvement without evidence of necrosis (Chronic) Diabetic ulcer of right foot (Chronic) Type 2 diabetes mellitus with diabetic polyneuropathy (Chronic) Diabetes mellitus type II, uncontrolled (Chronic) Obesity (BMI 30-39.9) (Chronic) Tobacco use (Chronic) Allergies/Adverse Reactions: Allergies No Known Allergies Allergy (Verified 02/27/20 12:53) Home Medications: Ambulatory Orders Medication Instructions Recorded Insulin Aspart [Novolog Flexpen 25 units SUBCUT TIDCM 02/27/20 ([facility])] Insulin Glargine [Lantus SoloStar 100 units SUBCUT BID 02/27/20 Pen] Maternal Family History: - - Other with a history of colon cancer, metastatic. Paternal Family History: - - Father with a history of prostate cancer. 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 Treatment Course Number Number of HBO Treatments 20 Ordered Treatment Course Number 1 Treatment # 12 Chamber # [id number] Chamber Type Monoplace HBO Diagnosis/Indication Diagnosis/Indication(s) for Right Diabetic Foot Ulcer Hyperbaric Therapy Classification - Peter Grade 3 Grading (Diabetic Ulcer) Diabetes - Detail Diabetes Diabetes Type II Diabetes Control Uncontrolled Right Extremity Ulcer, Other part of Foot Treatment Plan VALERIO (Atmospheric Absolute) 2.0 Number of Minutes 90 Number of Air Breaks 0
--- NOTE | 2020-05-14 12:49 | PN.PCM_ITS ---
(1) Osteomyelitis Status: Acute Current Visit: Yes Code(s): M86.9 - Osteomyelitis, unspecified (2) Chronic ulcer of right foot with necrosis of bone Status: Chronic Current Visit: Yes Code(s): L97.514 - Non-pressure chronic ulcer of other part of right foot with necrosis of bone (3) Type 2 diabetes mellitus with diabetic polyneuropathy Status: Chronic Current Visit: Yes Qualifiers: Code(s): E11.42 - Type 2 diabetes mellitus with diabetic polyneuropathy (4) Delayed wound healing Status: Chronic Current Visit: Yes Code(s): T14.8XXD - Other injury of unspecified body region, subsequent encounter (5) PVD (peripheral vascular disease) Status: Chronic Current Visit: Yes Code(s): I73.9 - Peripheral vascular disease, unspecified Type of Wound Date of Service: 05/14/20 Chief Complaint: Chronic right great toe ulceration with necrosis of bone/osteomyelitis?Peter grade 3 History of Wound: 59-year-old white male with diabetes and other comorbidities was seen today for right foot ulcer. His antibiotics were updated to Augmentin and levofloxacin. He is also been seen by infectious disease specialist, Dr. Pike. He has a Peter grade 3 ulcer and has also been diagnosed with acute osteomyelitis clinically and with MRI evaluation. He denies fever, chill, nausea, vomiting, diarrhea or other side effects since he started on antibiotics. He has been undergoing hyperbaric oxygen therapy treatment. He kept his dressing clean and intact this past week. He has been working less. Progress of Wound: Improving - Physical Exam Vital Signs Temp Pulse Resp BP 98.1 F 87 18 143/85 H 05/14/20 11:34 05/14/20 11:34 05/14/20 11:34 05/14/20 11:34 General: Alert, Oriented x3, Cooperative, No apparent distress HEENT: Atraumatic Extremities: No cyanosis, Capillary Refill Less than 3 Seconds, No Calf Tenderness, Diminished Peripheral Pulses, Edema - Decreased Skin: Ulcer/ Wound - No purulence, erythema, streaking, odor, infection. Progressive granular tissue base is noted and there is no exposed deep tissue or necrosis or maceration. The adjacent skin is hairless and atrophic and Wound Measurements and Assessment WC - Nurse 1 - General Ulcer Measurement Start: 04/23/20 12:55 Freq: Status: Active Protocol: Activity Type Activity Date Activity User E-Sign Co-Sign Detail Recorded Client Recorded Date Recorded By Document 05/14/20 11:34 RB [id number] 05/14/20 11:38 RB 05/14/20 11:34 Wound Center Nurse 1 [Ulcer Assessment] #10 right great toe plantar -Combined with other wound No -Current Size (cm) - Length 1 -Current Size (cm) - Width 1.4 -Current Size (cm) - Depth 0.1 -Total Square Cm 1.4 -Tunneling No -Undermining/Tunneling No -Circular Undermining No -Exudate Amt Small -Exudate Type Serosanguineous -Wound Margin Thickened & Rolled Under -Granulation Amt Medium (34-66%) -Granulation Quality [place] -Slough/Fibrin Yes -Necrosis Amt Small (1-33%) -Necrotic Tissue Type Adherent Slough -Structure Exposed N/A -Texture (Belle-wound Skin Appearance) Callus -Moisture (Belle-wound Skin Appearance Assessed ) -Color (Belle-wound Skin Appearance) Assessed -Temperature (Belle-wound Skin No Abnormality Appearance) (Pt Warm) -Tenderness on Palpation (Belle-wound No Skin Appearance) -Ulcer Cleansing Wound Cleanser -Foul Odor after Cleansing No -Anesthetic Used 4% Lidocaine Solution [Edema Assessment] -Lower Limb Edema Present Yes -Right Calf (cm) 42.5 -Right Ankle (cm) 24 WC - Nurse 2 - General Ulcer CM Notes Start: 05/05/20 09:49 Freq: Status: Active Protocol: Activity Type Activity Date Activity User E-Sign Co-Sign Detail Recorded Client Recorded Date Recorded By Document 05/14/20 11:49 [id number] 05/14/20 11:52 05/14/20 11:49 Wound Center Nurse 2 [Procedure/Treatment] #10 right great toe plantar -Time 11:49 -Correct Patient Yes -Correct Side, Site, Position Yes -Correct Procedure Yes -Procedure Performed Yes -Type of Procedure Debridement -Clinical Debridement Subcutaneous -Tissue Removed Subcutaneous -Post Debridement (cm) - Length 1.2 -Post Debridement (cm) - Width 1.4 -Post Debridement (cm) - Depth 0.1 -Total Square (Post) (cm) 1.68 -Area of Debridement (cm) - Length 1.2 -Area of Debridement (cm) - Width 1.4 -Total Square (Area) (cm) 1.68 -Tunneling No -Undermining/Tunneling No -Circular Undermining No -Wound/Ulcer Outcome Not Healed -Ulcer Cleansing Rinsed/ Irrigated with Saline -Foul Odor after Cleansing No -Bioengineered Tissue Yes -Type of Bioengineered Tissue Epifix 18mm Disc -Expiration Date 12/18/24 -Product Lot Number [id number] -Percent Used 100 -Saline Lot Number [id number] -Bleeding Controlled with Pressure -Offloading Yes -Type of Offloading Knee Walker -Treatment Response Procedure Tolerated Well -Debridement - Subq, 1st 20sq cm No -Epifix 18mm Disc 1 Query Text:18mm = 3 [See Physician Procedure note for Specifics] Pain Scale: 0-10 Numeric [Pain] -Is Patient Pain Free? Yes - Nurse 3 - General Ulcer D/C NN Start: 05/05/20 23:20 Freq: Status: Active Protocol: Activity Type Activity Date Activity User E-Sign Co-Sign Detail Recorded Client Recorded Date Recorded By Document 05/14/20 12:07 AL [id number] 05/14/20 12:08 AL 05/14/20 12:07 Wound Care Nurse 3 [Wound Dressing] #10 right great toe plantar -Primary Dressing Covered/Secured Dry Gauze,Dry with Gauze & Roll Gauze,Secured with Tape [Compression Applied] Right -Size of Tubigrip Used Size D -Size D ($) 1 [Post Procedure Tolerated] -Treatment Response Procedure Tolerated Well Pain Scale: 0-10 Numeric [Pain] -Is Patient Pain Free? Yes Teaching: Wound Center [Wound Center Education] (Items with an * have Printed Materials Available- Please identify what is given to patient under the Teaching materials given to patient and caregiver Section. Offload: Mattress, Cushion, Reposition -Person Taught Patient -Teaching Method Discussion -Response to teaching Verbalize understanding - Visit Discharge [Visit Discharge Information] -Discharge Condition Stable -Ambulatory Status Ambulatory, Walker -Transportation Private Auto -Medication Reconcilliation completed No & provided to patient/care provider -Clinical Summary of Care Provided Yes Musculoskeletal: No Tenderness to Palpation of Joints or Extremities, Muscle Wasting, - - No fluctuance or bogginess on palpation Neurological: - - Lack of epicritic sensation light touch is consistent with neuropathy status Psych/Mental Status: Normal Affect, Appropriate Debridement Note Post-Debridement Measurements/Treatment WC - Nurse 2 - General Ulcer CM Notes Start: 05/05/20 09:49 Freq: Status: Active Protocol: Activity Type Activity Date Activity User E-Sign Co-Sign Detail Recorded Client Recorded Date Recorded By Document 05/07/20 11:20 [id number] 05/07/20 11:20 Document 05/14/20 11:49 [id number] 05/14/20 11:52 05/07/20 05/14/20 11:20 11:49 Wound Center Nurse 2 #10 right great toe plantar -Time 11:49 -Correct Patient No Yes -Correct Side, Site, Position No Yes -Correct Procedure No Yes -Procedure Performed No Yes -Type of Procedure Debridement -Clinical Debridement Subcutaneous -Tissue Removed Subcutaneous -Post Debridement (cm) - Length 1.2 -Post Debridement (cm) - Width 1.4 -Post Debridement (cm) - Depth 0.1 -Total Square (Post) (cm) 1.68 -Area of Debridement (cm) - Length 1.2 -Area of Debridement (cm) - Width 1.4 -Total Square (Area) (cm) 1.68 -Tunneling No No -Undermining/Tunneling No No -Circular Undermining No No -Wound/Ulcer Outcome Not Healed Not Healed -Ulcer Cleansing Rinsed/ Irrigated with Saline -Foul Odor after Cleansing No -Bioengineered Tissue Yes -Type of Bioengineered Tissue Epifix 18mm Disc -Expiration Date 12/18/24 -Product Lot Number [id number] -Percent Used 100 -Saline Lot Number [id number] -Bleeding Controlled with Pressure -Offloading Yes -Type of Offloading Knee Walker -Treatment Response Procedure Tolerated Well -Debridement - Subq, 1st 20sq cm No -Epifix 18mm Disc 1 Query Text:18mm = 3 Pain Scale: 0-10 Numeric Is Patient Pain Free? Yes Yes - Nurse 3 - General Ulcer D/C NN Start: 05/05/20 23:20 Freq: Status: Active Protocol: Activity Type Activity Date Activity User E-Sign Co-Sign Detail Recorded Client Recorded Date Recorded By Document 05/07/20 11:36 [facility] [id number] 05/07/20 11:37 [facility] Document 05/14/20 12:07 [id number] 05/14/20 12:08 RB 05/07/20 05/14/20 11:36 12:07 Wound Care Nurse 3 #10 right great toe plantar -Other Dressing EPICORD LEFT IN PLACE PER DR GARCIA -Primary Dressing Covered/Secured with Dry Gauze, Dry Gauze,Dry Secured with Gauze & Roll Tape Gauze,Secured with Tape Right -Tubular Bandage Single Layer -Size of Tubigrip Used Size E Size D -Size D ($) 1 -Size E ($) 1 Treatment Response Procedure Procedure Tolerated Well Tolerated Well Pain Scale: 0-10 Numeric Is Patient Pain Free? Yes Yes Teaching: Wound Center Offload: Mattress, Cushion, Reposition -Person Taught Patient -Teaching Method Discussion -Response to teaching Verbalize understanding WC - Visit Discharge Discharge Condition Stable Stable Ambulatory Status Ambulatory,Cane Ambulatory, Walker Transportation Private Auto Private Auto Medication Reconcilliation completed & No provided to patient/care provider Clinical Summary of Care Provided Yes Wound debrided: plantar hallux Laterality: Right Wound Grade/Stage: grade 3 Type of Debridement: Excisional debridement Anesthesia Used: 5% Lidocaine Gel Depth: in the subcutaneous layer Percentage of wound debrided: 100 Instrument Used: #15 blade Tissue Removed: fibrous, devitalized subcutaneous, biofilm, slough Severity: Fat Layer Exposed Amount of bleeding with debridement: Mild Bleeding Controlled with: Pressure Patient tolerated procedure well Assessment/Plan Active Problems Osteomyelitis (Acute) 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 Right great toe necrosis /gangrene to the outer tissue. Ulcer right hallux bone layer exposed (peter grade 3). osteomyelitis distal phalanx of hallux. Cellulitis and osteomyelitis right foot addressed with oral antibiotics. Hallux limitus Plan: I reviewed and discussed his case. The ulcer was debrided today as noted in the clinical panel. Advance wound healing product epi-fix was recommended and this was applied after verbal consent was obtained today. This was applied according standard protocol and he tolerated this well. This epi-cord was also secured in place with a wound veil and Steri-Strips. A secondary dressing was reapplied. He was advised to keep this clean, dry, and intact until follow-up next week. I recommend this because he is high risk for continued amputation, infection, loss of limb and life due to his recurrent infections and tissue loss. This is medically necessary. His diagnostic data was reviewed and he did not have leukocytosis. His sedimentation rate was 44. His hemoglobin A1c was recently checked and was over 11%. He is undergoing medical management to help him decrease this. He is making lifestyle changes and is working less. His toe x-ray did not demonstrate any acute fracture dislocation or soft tissue emphysema or foreign body. His recent ankle x-ray did not demonstrate any fracture, dislocation, radiographic evidence of Charcot, soft tissue emphysema or foreign body. Significant small vessel calcification is seen. Subsequent MRI of the foot did confirm acute osteomyelitis of the distal phalanx of the hallux. He was advised to heel weight in the surgical shoe as recommended; he already has this. To avoid driving or any activity that continues to place pressure on this ulcer site. He relates he will repetitively uses his forefoot for driving and he also often places his foot next to a heater. I recommended offloading this more aggressively with a cam walker boot with dual density offloading Plastizote liners. He did get fitted for this at the foot and ankle center and understands proper use. His dressing is extremely soiled and compliance was reviewed. I also recommend nutritional supplementation and a prescription for Tripp was provided. To improve glucose management. We discussed adequate protein intake and I answered his questions. To continue with improved nutrition to improve wellbeing and glycemic control. He is scheduled to see a bridge tender. His microbiology reports were reviewed and it appears he has multi-organism growth. To continue on Augmentin and levofloxacin. He was seen by infectious disease as well. We discussed wound care and antibiotics first with the addition of hyperbaric oxygen versus amputation including the indications and treatment options. The indications, benefits, anticipated course and management of hyperbaric oxygen therapy was discussed. He had an EF of about 45%. He is scheduled at this time. He understands he is at continued risk of limb loss and his success is compromised by his medical instability. He is started hyperbaric oxygen therapy and this is going well. He was approved by his insurance for about 20 sessions. I do recommend obtaining an extension because he is responding well and this is medically necessary for limb salvage. I also recommend updating his noninvasive vascular studies and this has been scheduled. He had abnormal findings with calcification and noncompressible vessels. Given his recent rapid gangrenous finding a tissue loss I recommend a vascular surgery referral. A referral was provided see Dr. Olvera and input will be greatly appreciated.This was scheduled. I answered all his questions. To follow-up with the wound healing center in 1 week.
[2020-05-15 08:35] LABS: Bedside Glucose 212 mg/dL (70-110)
[2020-05-15 08:59] VITALS: BP 143/87; BP 153/93; PULSE 82; PULSE 83; RESP 16; RESP 18; TEMP 36; TEMP 36.1
--- NOTE | 2020-05-15 09:16 | PCM.HBO.PN ---
History of Present Illness Date of Service: 05/15/20 Presenting Chief Complaint: Chronic right great toe ulceration with necrosis of bone/osteomyelitis?Peter grade 3 OLY SMITH is a 59 year old currently undergoing hyperbaric oxygen therapy for a non-pressure chronic ulcer of the right foot with necrosis of bone/osteomyelitis - Peter Grade 3. Progress: Today represents the 13th hyperbaric oxygen treatment of 20 planned treatments. Tolerance of hyperbaric oxygen therapy: Hyperbaric oxygen treatment was administered as per the facility's protocol at 2.0 VALERIO and 100% oxygen for 90 minutes. There were no air breaks. The patient tolerated hyperbaric oxygen well, without complications or complaints. Upon emergence of the hyperbaric chamber the patient's vital signs remained stable. Pre and post blood glucose levels as documented. Patient was discharged in good condition. 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) Type 2 diabetes mellitus with diabetic polyneuropathy (Chronic) Type 2 diabetes mellitus with diabetic polyneuropathy (Chronic) Cellulitis of right foot (Chronic) Type 1 diabetes mellitus (Chronic) Malnutrition (Chronic) Delayed wound healing (Chronic) PVD (peripheral vascular disease) (Chronic) Ulcer of right foot with necrosis of muscle (Chronic) Hammer toe of right foot (Chronic) Ulcer of right foot with fat layer exposed (Chronic) Non-pressure chronic ulcer of right heel and midfoot with bone involvement without evidence of necrosis (Chronic) Diabetic ulcer of right foot (Chronic) Type 2 diabetes mellitus with diabetic polyneuropathy (Chronic) Diabetes mellitus type II, uncontrolled (Chronic) Obesity (BMI 30-39.9) (Chronic) Tobacco use (Chronic) Allergies/Adverse Reactions: Allergies No Known Allergies Allergy (Verified 02/27/20 12:53) Home Medications: Ambulatory Orders Medication Instructions Recorded Insulin Aspart [Novolog Flexpen 25 units SUBCUT TIDCM 02/27/20 ([facility])] Insulin Glargine [Lantus SoloStar 100 units SUBCUT BID 02/27/20 Pen] Maternal Family History: - - Other with a history of colon cancer, metastatic. Paternal Family History: - - Father with a history of prostate cancer. Smoking Status: Never smoker Tobacco Use: Non-smoker Alcohol: None Drugs: None Physical Exam Vital Signs Temp Pulse Resp BP 96.8 F L 83 18 143/87 H 05/15/20 08:59 05/15/20 08:59 05/15/20 08:59 05/15/20 08:59 General: Alert, Oriented x3, Cooperative, No apparent distress HEENT: Atraumatic, Normocephalic Lungs: Normal air movement Psych/Mental Status: Normal Affect Assessment/Plan Active Problems Osteomyelitis (Acute) Chronic ulcer of right foot with necrosis of bone (Chronic) Type 2 diabetes mellitus with diabetic polyneuropathy (Chronic) Delayed wound healing (Chronic) PVD (peripheral vascular disease) (Chronic) The patient appears to be tolerating hyperbaric oxygen therapy well, which will be continued as per the patient's medical plan. Treatment Course Number Number of HBO Treatments 20 Ordered Treatment Course Number 1 Treatment # 13 Chamber # [id number] Chamber Type Monoplace HBO Diagnosis/Indication Diagnosis/Indication(s) for Right Diabetic Foot Ulcer,Standard/Conservative Hyperbaric Therapy Classification - Peter Grade 3 Grading (Diabetic Ulcer) Diabetes - Detail Diabetes Diabetes Type II Diabetes Control Uncontrolled Right Extremity Ulcer, Other part of Foot Treatment Plan VALERIO (Atmospheric Absolute) 2 Number of Minutes 90 Number of Air Breaks 0 HBO Supervision.
[2020-05-15 10:46] LABS: Bedside Glucose 178 mg/dL (70-110)
[2020-05-16 08:40] LABS: Bedside Glucose 174 mg/dL (70-110)
[2020-05-16 10:41] VITALS: BP 153/78; BP 156/96; PULSE 84; PULSE 86; RESP 18; TEMP 36.3; TEMP 36.6
[2020-05-16 10:41] LABS: Bedside Glucose 112 mg/dL (70-110)
--- NOTE | 2020-05-16 16:15 | HBO.PN.PCM_ITS ---
History of Present Illness Date of Service: 05/16/20 Presenting Chief Complaint: Chronic right great toe ulceration with necrosis of bone/osteomyelitis?Peter grade 3 OLY SMITH is a 59 year old currently undergoing hyperbaric oxygen therapy for a non-pressure chronic ulcer of the right foot with necrosis of bone/osteomyelitis - Peter Grade 3. Progress: Today represents the 14th hyperbaric oxygen treatment of 20 planned treatments. Tolerance of hyperbaric oxygen therapy: Hyperbaric oxygen treatment was administered as per the facility's protocol at 2.0 VALERIO and 100% oxygen for 90 minutes. There were no air breaks. The patient tolerated hyperbaric oxygen well, without complications or complaints. Upon emergence of the hyperbaric chamber the patient's vital signs remained stable. Pre and post blood glucose levels as documented. Patient was discharged in good condition. 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) Type 2 diabetes mellitus with diabetic polyneuropathy (Chronic) Type 2 diabetes mellitus with diabetic polyneuropathy (Chronic) Cellulitis of right foot (Chronic) Type 1 diabetes mellitus (Chronic) Malnutrition (Chronic) Delayed wound healing (Chronic) PVD (peripheral vascular disease) (Chronic) Ulcer of right foot with necrosis of muscle (Chronic) Hammer toe of right foot (Chronic) Ulcer of right foot with fat layer exposed (Chronic) Non-pressure chronic ulcer of right heel and midfoot with bone involvement without evidence of necrosis (Chronic) Diabetic ulcer of right foot (Chronic) Type 2 diabetes mellitus with diabetic polyneuropathy (Chronic) Diabetes mellitus type II, uncontrolled (Chronic) Obesity (BMI 30-39.9) (Chronic) Tobacco use (Chronic) Allergies/Adverse Reactions: Allergies No Known Allergies Allergy (Verified 02/27/20 12:53) Home Medications: Ambulatory Orders Medication Instructions Recorded Insulin Aspart [Novolog Flexpen 25 units SUBCUT TIDCM 02/27/20 ([facility])] Insulin Glargine [Lantus SoloStar 100 units SUBCUT BID 02/27/20 Pen] Maternal Family History: - - Other with a history of colon cancer, metastatic. Paternal Family History: - - Father with a history of prostate cancer. Smoking Status: Never smoker Tobacco Use: Non-smoker Alcohol: None Drugs: None Physical Exam Vital Signs Temp Pulse Resp BP 97.4 F L 86 18 153/78 H 05/16/20 10:41 05/16/20 10:41 05/16/20 10:41 05/16/20 10:41 General: Alert, Oriented x3, Cooperative, No apparent distress Psych/Mental Status: Normal Affect, Appropriate Assessment/Plan Active Problems Osteomyelitis (Acute) Chronic ulcer of right foot with necrosis of bone (Chronic) Type 2 diabetes mellitus with diabetic polyneuropathy (Chronic) Delayed wound healing (Chronic) PVD (peripheral vascular disease) (Chronic) The patient appears to be tolerating hyperbaric oxygen therapy well, which will be continued as per the patient's medical plan. Treatment Course Number Number of HBO Treatments 20 Ordered Treatment Course Number 1 Treatment # 14 Chamber # [id number] Chamber Type Monoplace HBO Diagnosis/Indication Diagnosis/Indication(s) for Right Diabetic Foot Ulcer Hyperbaric Therapy Classification - Peter Grade 3 Grading (Diabetic Ulcer) Diabetes - Detail Diabetes Diabetes Type II Diabetes Control Uncontrolled Right Extremity Ulcer, Heel & Midfoot Treatment Plan VALERIO (Atmospheric Absolute) 2.0 Number of Minutes 90 Number of Air Breaks 0
[2020-05-19 08:36] LABS: Bedside Glucose 168 mg/dL (70-110)
[2020-05-19 09:44] VITALS: BP 147/96; BP 159/82; PULSE 76; PULSE 84; RESP 16; RESP 18; TEMP 35.9; TEMP 36.3
[2020-05-19 11:10] LABS: Bedside Glucose 141 mg/dL (70-110)
--- NOTE | 2020-05-19 13:05 | PCM.HBO.PN ---
History of Present Illness Date of Service: 05/19/20 Presenting Chief Complaint: Chronic right great toe ulceration with necrosis of bone/osteomyelitis?Peter grade 3 OLY SMITH is a 59 year old currently undergoing hyperbaric oxygen therapy for a non-pressure chronic ulcer of the right foot with necrosis of bone/osteomyelitis - Peter Grade 3. Progress: Today represents the 15th hyperbaric oxygen treatment of 20 planned treatments. Tolerance of hyperbaric oxygen therapy: Hyperbaric oxygen treatment was administered as per the facility's protocol at 2.0 VALERIO and 100% oxygen for 90 minutes. There were no air breaks. The patient tolerated hyperbaric oxygen well, without complications or complaints. Upon emergence of the hyperbaric chamber the patient's vital signs remained stable. Pre and post blood glucose levels as documented. Patient was discharged in good condition. 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) Type 2 diabetes mellitus with diabetic polyneuropathy (Chronic) Type 2 diabetes mellitus with diabetic polyneuropathy (Chronic) Cellulitis of right foot (Chronic) Type 1 diabetes mellitus (Chronic) Malnutrition (Chronic) Delayed wound healing (Chronic) PVD (peripheral vascular disease) (Chronic) Ulcer of right foot with necrosis of muscle (Chronic) Hammer toe of right foot (Chronic) Ulcer of right foot with fat layer exposed (Chronic) Non-pressure chronic ulcer of right heel and midfoot with bone involvement without evidence of necrosis (Chronic) Diabetic ulcer of right foot (Chronic) Type 2 diabetes mellitus with diabetic polyneuropathy (Chronic) Diabetes mellitus type II, uncontrolled (Chronic) Obesity (BMI 30-39.9) (Chronic) Tobacco use (Chronic) Allergies/Adverse Reactions: Allergies No Known Allergies Allergy (Verified 02/27/20 12:53) Home Medications: Ambulatory Orders Medication Instructions Recorded Insulin Aspart [Novolog Flexpen 25 units SUBCUT TIDCM 02/27/20 ([facility])] Insulin Glargine [Lantus SoloStar 100 units SUBCUT BID 02/27/20 Pen] Maternal Family History: - - Other with a history of colon cancer, metastatic. Paternal Family History: - - Father with a history of prostate cancer. 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) Type 2 diabetes mellitus with diabetic polyneuropathy (Chronic) Delayed wound healing (Chronic) PVD (peripheral vascular disease) (Chronic) Treatment Course Number Number of HBO Treatments 20 Ordered Treatment Course Number 1 Treatment # 15 Chamber # [id number] Chamber Type Monoplace HBO Diagnosis/Indication Diagnosis/Indication(s) for Right Diabetic Foot Ulcer Hyperbaric Therapy Classification - Peter Grade 3 Grading (Diabetic Ulcer) Diabetes - Detail Diabetes Diabetes Type II Diabetes Control Uncontrolled Right Extremity Ulcer, Heel & Midfoot Treatment Plan VALERIO (Atmospheric Absolute) 2 Number of Minutes 90 Number of Air Breaks 0
== END 2020-05-19 23:59 ==
LOC: WC 08:30
PROVIDERS: PCP Family Medicine; Visit Provider Podiatrist
DX: E11.621 Type 2 diabetes mellitus with foot ulcer (principal); E11.69 Type 2 diabetes mellitus with other specified complication; M86.171 Other acute osteomyelitis, right ankle and foot; E11.51 Type 2 diabetes mellitus with diabetic peripheral angiopathy without gangrene; L97.512 Non-pressure chronic ulcer of other part of right foot with fat layer exposed; E11.42 Type 2 diabetes mellitus with diabetic polyneuropathy; E66.9 Obesity, unspecified; Z72.0 Tobacco use
CPT/HCPCS: 15275; 82962; 99183; 99212; Q4186; Q4187; G0277; G0463

== ENCOUNTER 2020-06-18 08:00 | Outpatient (RCR) | payer BC, SELFPAY ==
[2020-05-14 11:34] VITALS: BMI 39.9
[2020-05-20 00:44] VITALS: BP 147/96; PULSE 76; RESP 18; TEMP 36.3
[2020-05-20 11:13] VITALS: BP 128/74; BP 143/86; PULSE 82; PULSE 93; RESP 16; TEMP 36.2; TEMP 36.3
--- NOTE | 2020-05-20 11:36 | HBO.PN.PCM_ITS ---
History of Present Illness Date of Service: 05/20/20 Presenting Chief Complaint: Chronic right great toe ulceration with necrosis of bone/osteomyelitis?Peter grade 3 OLY SMITH is a 59 year old currently undergoing hyperbaric oxygen therapy for Peter grade 3 ulceration of the right great toe with osteomyelitis. Progress: Today's hyperbaric oxygen therapy session represents the 16th such session of an anticipated 20 such treatments. Tolerance of hyperbaric oxygen therapy: Hyperbaric oxygen therapy was administered as per the facility's protocol. Hyperbaric oxygen therapy was administered at 2 lisa and 100% oxygen for 90 minutes, with no air breaks. Hyperbaric oxygen therapy was tolerated well, without complaints or complications. Upon emergence from the hyperbaric chamber, the patient's vital signs remained stable. Pre-and post blood glucose levels are documented elsewhere. The patient was discharged in good condition. 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) Type 2 diabetes mellitus with diabetic polyneuropathy (Chronic) Type 2 diabetes mellitus with diabetic polyneuropathy (Chronic) Cellulitis of right foot (Chronic) Type 1 diabetes mellitus (Chronic) Malnutrition (Chronic) Delayed wound healing (Chronic) PVD (peripheral vascular disease) (Chronic) Ulcer of right foot with necrosis of muscle (Chronic) Hammer toe of right foot (Chronic) Ulcer of right foot with fat layer exposed (Chronic) Non-pressure chronic ulcer of right heel and midfoot with bone involvement without evidence of necrosis (Chronic) Diabetic ulcer of right foot (Chronic) Type 2 diabetes mellitus with diabetic polyneuropathy (Chronic) Diabetes mellitus type II, uncontrolled (Chronic) Obesity (BMI 30-39.9) (Chronic) Tobacco use (Chronic) Allergies/Adverse Reactions: Allergies No Known Allergies Allergy (Verified 02/27/20 12:53) Home Medications: Ambulatory Orders Medication Instructions Recorded Insulin Aspart [Novolog Flexpen 25 units SUBCUT TIDCM 02/27/20 ([facility])] Insulin Glargine [Lantus SoloStar 100 units SUBCUT BID 02/27/20 Pen] Semaglutide [Ozempic] 0.25 mg SQ QWEEK 05/20/20 Maternal Family History: - - Other with a history of colon cancer, metastatic. Paternal Family History: - - Father with a history of prostate cancer. Smoking Status: Never smoker Tobacco Use: Non-smoker Physical Exam Vital Signs Temp Pulse Resp BP 97.1 F L 93 16 143/86 H 05/20/20 11:13 05/20/20 11:13 05/20/20 11:13 05/20/20 11:13 General: Alert, Oriented x3, Cooperative, No apparent distress, Well developed, Well nourished HEENT: Atraumatic, PERRLA, EOMI, Normocephalic Lungs: Normal air movement Psych/Mental Status: Normal Affect, Appropriate, Alert and oriented to time, place, person, mood and affect Assessment/Plan The patient appears to be tolerating hyperbaric oxygen therapy well, which will be continued as per the patient's medical plan. Treatment Course Number Treatment Course Number 1 Treatment # 16 Chamber # 1 Chamber Type Monoplace HBO Diagnosis/Indication Diagnosis/Indication(s) for Right Diabetic Foot Ulcer Hyperbaric Therapy Classification - Peter Grade 3 Grading (Diabetic Ulcer) Diabetes - Detail Diabetes Diabetes Type II Right Extremity Ulcer, Heel & Midfoot Treatment Plan VALERIO (Atmospheric Absolute) 2.0 Number of Minutes 90
[2020-05-20 16:25] LABS: Bedside Glucose 153 mg/dL (70-110)
[2020-05-20 16:25] LABS: Bedside Glucose 156 mg/dL (70-110)
[2020-05-20 16:25] LABS: Bedside Glucose 119 mg/dL (70-110)
[2020-05-21 08:01] LABS: Bedside Glucose 179 mg/dL (70-110)
[2020-05-21 10:00] LABS: Bedside Glucose 168 mg/dL (70-110)
[2020-05-21 10:01] VITALS: BP 140/90; BP 150/101; PULSE 78; PULSE 83; RESP 18; TEMP 36.2; TEMP 36.3
--- NOTE | 2020-05-21 10:02 | HBO.PN.PCM_ITS ---
History of Present Illness Date of Service: 05/21/20 Presenting Chief Complaint: Chronic right great toe ulceration with necrosis of bone/osteomyelitis?Peter grade 3 OLY SMITH is a 59 year old currently undergoing hyperbaric oxygen therapy for Peter grade 3 ulceration of the right great toe with osteomyelitis. Progress: Today's hyperbaric oxygen therapy session represents the 17th such session of an anticipated 20 such treatments. Tolerance of hyperbaric oxygen therapy: Hyperbaric oxygen therapy was administered as per the facility's protocol. Hyperbaric oxygen therapy was administered at 2 lisa and 100% oxygen for 90 minutes, with no air breaks. Hyperbaric oxygen therapy was tolerated well, without complaints or complications. Upon emergence from the hyperbaric chamber, the patient's vital signs remained stable. Pre-and post blood glucose levels are documented elsewhere. The patient was discharged in good condition. 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) Type 2 diabetes mellitus with diabetic polyneuropathy (Chronic) Type 2 diabetes mellitus with diabetic polyneuropathy (Chronic) Cellulitis of right foot (Chronic) Type 1 diabetes mellitus (Chronic) Malnutrition (Chronic) Delayed wound healing (Chronic) PVD (peripheral vascular disease) (Chronic) Ulcer of right foot with necrosis of muscle (Chronic) Hammer toe of right foot (Chronic) Ulcer of right foot with fat layer exposed (Chronic) Non-pressure chronic ulcer of right heel and midfoot with bone involvement without evidence of necrosis (Chronic) Diabetic ulcer of right foot (Chronic) Type 2 diabetes mellitus with diabetic polyneuropathy (Chronic) Diabetes mellitus type II, uncontrolled (Chronic) Obesity (BMI 30-39.9) (Chronic) Tobacco use (Chronic) Allergies/Adverse Reactions: Allergies No Known Allergies Allergy (Verified 02/27/20 12:53) Home Medications: Ambulatory Orders Medication Instructions Recorded Insulin Aspart [Novolog Flexpen 25 units SUBCUT TIDCM 02/27/20 ([facility])] Insulin Glargine [Lantus SoloStar 100 units SUBCUT BID 02/27/20 Pen] Semaglutide [Ozempic] 0.25 mg SQ QWEEK 05/20/20 Maternal Family History: - - Other with a history of colon cancer, metastatic. Paternal Family History: - - Father with a history of prostate cancer. Smoking Status: Never smoker Tobacco Use: Non-smoker Physical Exam Vital Signs Temp Pulse Resp BP 97.1 F L 93 16 143/86 H 05/20/20 11:13 05/20/20 11:13 05/20/20 11:13 05/20/20 11:13 Assessment/Plan The patient appears to be tolerating hyperbaric oxygen therapy well, which will be continued as per the patient's medical plan. Treatment Course Number Treatment Course Number 1 Treatment # 16 Chamber # 1 Chamber Type Monoplace HBO Diagnosis/Indication Diagnosis/Indication(s) for Right Diabetic Foot Ulcer Hyperbaric Therapy Classification - Peter Grade 3 Grading (Diabetic Ulcer) Diabetes - Detail Diabetes Diabetes Type II Right Extremity Ulcer, Heel & Midfoot Treatment Plan VALERIO (Atmospheric Absolute) 2.0 Number of Minutes 90
[2020-05-21 10:15] VITALS: BP 150/101; PULSE 78; RESP 18; TEMP 36.3; BMI 39.9
--- NOTE | 2020-05-21 10:33 | PN.PCM_ITS ---
(1) Diabetic foot ulcer associated with diabetes mellitus due to underlying condition Status: Acute Current Visit: Yes Qualifiers: Diabetic foot ulcer location: toe Laterality: right Code(s): E08.621 - Diabetes mellitus due to underlying condition with foot ulcer; L97.509 - Non-pressure chronic ulcer of other part of unspecified foot with unspecified severity (2) Osteomyelitis Status: Acute Current Visit: Yes Qualifiers: Laterality: right Code(s): M86.9 - Osteomyelitis, unspecified (3) Delayed wound healing Status: Chronic Current Visit: Yes Code(s): T14.8XXD - Other injury of unspecified body region, subsequent encounter (4) Diabetes mellitus type II, uncontrolled Status: Chronic Current Visit: Yes Qualifiers: Code(s): E11.65 - Type 2 diabetes mellitus with hyperglycemia (5) Malnutrition Status: Chronic Current Visit: Yes Qualifiers: Malnutrition type: protein-calorie malnutrition Code(s): E46 - Unspecified protein-calorie malnutrition (6) Obesity (BMI 30-39.9) Status: Chronic Current Visit: No Code(s): E66.9 - Obesity, unspecified Type of Wound Date of Service: 05/21/20 Chief Complaint: Chronic right great toe ulceration with necrosis of bone/osteomyelitis?Peter grade 3 History of Wound: 59-year-old white male with diabetes and other comorbidities was seen today for right foot ulcer. His antibiotics were updated to Augmentin and levofloxacin. He is also been seen by infectious disease specialist, Dr. Pike. He has a Peter grade 3 ulcer and has also been diagnosed with acute osteomyelitis clinically and with MRI evaluation. He denies fever, chill, nausea, vomiting, diarrhea or other side effects since he started on antibiotics. He has been undergoing hyperbaric oxygen therapy treatment. He kept his dressing clean and intact this past week. He has been working less. Progress of Wound: Improving. Patient is to be reevaluated for continuation of his HBO patient has been approved for 60 dives from his original 40. Patient is just finishing up his first 20 dives patient will continue for another 20. Patient's blood pressure was slightly elevated after treatment without any residual complaints denies chest pain shortness of breath or dizziness blurred vision or any other issues. - Physical Exam Vital Signs Temp Pulse Resp BP 97.4 F L 78 18 150/101 H 05/21/20 10:15 05/21/20 10:15 05/21/20 10:15 05/21/20 10:15 General: Oriented x3, Cooperative, Well developed HEENT: Atraumatic, PERRLA Oral: Moist Mucosa Neck: Supple, No JVD Lungs: Clear to auscultation, Normal air movement Cardiovascular: Regular rate, Regular Rhythm Abdomen: Bowel Sounds Present, Soft, Non Tender, No Hepato-splenomegaly Extremities: No clubbing, No edema Skin: Ulcer/ Wound - DFU left great toe ulcer Wound Measurements and Assessment WC - Nurse 1 - General Ulcer Measurement Start: 05/20/20 11:12 Freq: Status: Active Protocol: Activity Type Activity Date Activity User E-Sign Co-Sign Detail Recorded Client Recorded Date Recorded By Document 05/21/20 10:15 BULL [id number] 05/21/20 10:21 DL 05/21/20 10:15 Wound Center Nurse 1 [Ulcer Assessment] #10 right great toe plantar -Current Size (cm) - Length 0.8 -Current Size (cm) - Width 1 -Current Size (cm) - Depth 0.1 -Total Square Cm 0.8 -Photo Taken Yes -Exudate Amt Medium -Exudate Type Serosanguineous -Wound Margin Thickened -Granulation Amt Medium (34-66%) -Granulation Quality [place],Red -Necrosis Amt Medium (34-66%) -Necrotic Tissue Type Adherent Slough -Structure Exposed N/A -Texture (Belle-wound Skin Appearance) Callus -Moisture (Belle-wound Skin Appearance Maceration ) -Color (Belle-wound Skin Appearance) No Abnormality -Temperature (Belle-wound Skin No Abnormality Appearance) (Pt Warm) -Tenderness on Palpation (Belle-wound No Skin Appearance) -Ulcer Cleansing Wound Cleanser -Foul Odor after Cleansing No -Anesthetic Used 4% Lidocaine Solution - Nurse 3 - General Ulcer D/C NN Start: 05/20/20 11:12 Freq: Status: Active Protocol: Activity Type Activity Date Activity User E-Sign Co-Sign Detail Recorded Client Recorded Date Recorded By Document 05/20/20 11:13 ALEENA [id number] 05/20/20 11:18 ALEENA 05/20/20 11:13 Pain Scale: 0-10 Numeric [Pain] -Is Patient Pain Free? Yes WC - Visit Discharge [Visit Discharge Information] -Discharge Condition Stable -Ambulatory Status Ambulatory, Walker -Transportation Private Auto -Medication Reconcilliation completed Yes & provided to patient/care provider -Clinical Summary of Care Provided Yes Musculoskeletal: No Tenderness to Palpation of Joints or Extremities Lymphatic: No Cervical, Supraclavicular, or Inguinal Adenopathy Neurological: Cranial nerves II-XII grossly intact, Neuro grossly intact Psych/Mental Status: Normal Affect, Appropriate Debridement Note Post-Debridement Measurements/Treatment WC - Nurse 3 - General Ulcer D/C NN Start: 05/20/20 11:12 Freq: Status: Active Protocol: Activity Type Activity Date Activity User E-Sign Co-Sign Detail Recorded Client Recorded Date Recorded By Document 05/20/20 11:13 ALEENA [id number] 05/20/20 11:18 ALEENA 05/20/20 11:13 Pain Scale: 0-10 Numeric Is Patient Pain Free? Yes WC - Visit Discharge Discharge Condition Stable Ambulatory Status Ambulatory, Walker Transportation Private Auto Medication Reconcilliation completed & Yes provided to patient/care provider Clinical Summary of Care Provided Yes No debridement was completed today Assessment/Plan Active Problems Osteomyelitis (Acute) Diabetic foot ulcer associated with diabetes mellitus due to underlying condition (Acute) Malnutrition (Chronic) Delayed wound healing (Chronic) Diabetes mellitus type II, uncontrolled (Chronic) Assessment: Diabetes, uncontrolled (hemoglobin A1C is over 11%). Right great toe necrosis /gangrene to the outer tissue. Ulcer right hallux bone layer exposed (peter grade 3). osteomyelitis distal phalanx of hallux. Cellulitis and osteomyelitis right foot addressed with oral antibiotics. Hallux limitus Plan: I reviewed and discussed his case. Patient is to continue with HBO for another 20 treatments patient has been approved for 40 treatments more. Patient is tolerant to the HBO treatments and will continue to monitor his vital signs and blood sugars with entrance and exit of the HBO.
--- NOTE | 2020-05-21 14:52 | PCM.WC.PN ---
(1) Osteomyelitis Status: Chronic Current Visit: Yes Qualifiers: Laterality: right Code(s): M86.9 - Osteomyelitis, unspecified (2) Chronic ulcer of right foot with necrosis of bone Status: Chronic Current Visit: Yes Code(s): L97.514 - Non-pressure chronic ulcer of other part of right foot with necrosis of bone (3) Type 2 diabetes mellitus with diabetic polyneuropathy Status: Chronic Current Visit: Yes Qualifiers: Code(s): E11.42 - Type 2 diabetes mellitus with diabetic polyneuropathy (4) Delayed wound healing Status: Chronic Current Visit: Yes Code(s): T14.8XXD - Other injury of unspecified body region, subsequent encounter (5) PVD (peripheral vascular disease) Status: Chronic Current Visit: Yes Code(s): I73.9 - Peripheral vascular disease, unspecified Type of Wound Date of Service: 05/21/20 Chief Complaint: Chronic right great toe ulceration with necrosis of bone/osteomyelitis?Peter grade 3 History of Wound: 59-year-old white male with diabetes and other comorbidities was seen today for right foot ulcer. He has completed his 6-week oral antibiotic course under the management of infectious disease without reported side effects. He has a Peter grade 3 ulcer and has also been diagnosed with acute osteomyelitis clinically and with MRI and clinical evaluation. He denies fever, chill, nausea, vomiting, diarrhea or other side effects since he started on antibiotics. He has been undergoing hyperbaric oxygen therapy treatment. He kept his dressing clean and intact this past week. He has been working less. Progress of Wound: Improving. - Physical Exam Vital Signs Temp Pulse Resp BP 97.4 F L 78 18 150/101 H 05/21/20 10:15 05/21/20 10:15 05/21/20 10:15 05/21/20 10:15 General: Alert, Oriented x3, Cooperative, No apparent distress HEENT: Atraumatic Extremities: No cyanosis, Capillary Refill Less than 3 Seconds, No Calf Tenderness, Diminished Peripheral Pulses, Edema Skin: Ulcer/ Wound - No purulence, erythema, streaking, odor, or infection. Peripheral epithelialization and reduce ulcer depth and improvement of quality of the base is noted, - - The adjacent skin is hairless and atrophic Wound Measurements and Assessment WC - Nurse 1 - General Ulcer Measurement Start: 05/20/20 11:12 Freq: Status: Active Protocol: Activity Type Activity Date Activity User E-Sign Co-Sign Detail Recorded Client Recorded Date Recorded By Document 05/21/20 10:15 BULL [id number] 05/21/20 10:21 DL 05/21/20 10:15 Wound Center Nurse 1 [Ulcer Assessment] #10 right great toe plantar -Current Size (cm) - Length 0.8 -Current Size (cm) - Width 1 -Current Size (cm) - Depth 0.1 -Total Square Cm 0.8 -Photo Taken Yes -Exudate Amt Medium -Exudate Type Serosanguineous -Wound Margin Thickened -Granulation Amt Medium (34-66%) -Granulation Quality [place],Red -Necrosis Amt Medium (34-66%) -Necrotic Tissue Type Adherent Slough -Structure Exposed N/A -Texture (Belle-wound Skin Appearance) Callus -Moisture (Belle-wound Skin Appearance Maceration ) -Color (Belle-wound Skin Appearance) No Abnormality -Temperature (Belle-wound Skin No Abnormality Appearance) (Pt Warm) -Tenderness on Palpation (Belle-wound No Skin Appearance) -Ulcer Cleansing Wound Cleanser -Foul Odor after Cleansing No -Anesthetic Used 4% Lidocaine Solution WC - Nurse 2 - General Ulcer CM Notes Start: 05/20/20 11:12 Freq: Status: Active Protocol: Activity Type Activity Date Activity User E-Sign Co-Sign Detail Recorded Client Recorded Date Recorded By Document 05/21/20 10:46 ALEENA [id number] 05/21/20 10:49 ALEENA 05/21/20 10:46 Wound Center Nurse 2 [Procedure/Treatment] -Time 10:47 -Correct Patient Yes -Correct Side, Site, Position Yes -Correct Procedure Yes -Procedure Performed Yes -Type of Procedure Debridement -Clinical Debridement Subcutaneous -Tissue Removed Subcutaneous -Post Debridement (cm) - Length 1.5 -Post Debridement (cm) - Width 1.7 -Post Debridement (cm) - Depth 0.3 -Total Square (Post) (cm) 2.55 -Area of Debridement (cm) - Length 1.5 -Area of Debridement (cm) - Width 1.7 -Total Square (Area) (cm) 2.55 -Tunneling No -Undermining/Tunneling No -Circular Undermining No -Wound/Ulcer Outcome Not Healed -Ulcer Cleansing Rinsed/ Irrigated with Saline -Foul Odor after Cleansing No -Bioengineered Tissue Yes -Type of Bioengineered Tissue Epifix 18mm Disc -Expiration Date 01/17/25 -Product Lot Number [id number] -Percent Used 100 -Saline Lot Number [id number] -Bleeding Controlled with Pressure -Offloading Yes -Type of Offloading Camwalker -Treatment Response Procedure Tolerated Well -Debridement - Subq, 1st 20sq cm No -Apply Skin Sub - 1st 25 sq cm - Feet 1 -Epifix 18mm Disc 3 Query Text:18mm = 3 [See Physician Procedure note for Specifics] - Nurse 3 - General Ulcer D/C NN Start: 05/20/20 11:12 Freq: Status: Active Protocol: Activity Type Activity Date Activity User E-Sign Co-Sign Detail Recorded Client Recorded Date Recorded By Document 05/20/20 11:13 [id number] 05/20/20 11:18 Document 05/21/20 11:04 RB [id number] 05/21/20 11:05 05/20/20 05/21/20 11:13 11:04 Wound Care Nurse 3 [Wound Dressing] #10 right great toe plantar -Primary Dressing Covered/Secured Dry Gauze,Dry with Gauze & Roll Gauze,Secured with Tape [Compression Applied] Right -Tubular Bandage Single Layer -Size of Tubigrip Used Size D -Size D ($) 1 -Stockings No [Post Procedure Tolerated] -Treatment Response Procedure Tolerated Well Pain Scale: 0-10 Numeric [Pain] -Is Patient Pain Free? Yes Yes - Visit Discharge [Visit Discharge Information] -Discharge Condition Stable Stable -Ambulatory Status Ambulatory, Ambulatory Walker -Transportation Private Auto Private Auto -Medication Reconcilliation completed Yes No & provided to patient/care provider -Clinical Summary of Care Provided Yes Yes -Notes: kneewalker Musculoskeletal: No Tenderness to Palpation of Joints or Extremities, Muscle Wasting Neurological: - - Lack of normal epicritic sensation light touch is consistent with his neuropathy status Psych/Mental Status: Normal Affect, Appropriate Debridement Note Post-Debridement Measurements/Treatment - Nurse 2 - General Ulcer CM Notes Start: 05/20/20 11:12 Freq: Status: Active Protocol: Activity Type Activity Date Activity User E-Sign Co-Sign Detail Recorded Client Recorded Date Recorded By Document 05/21/20 10:46 [id number] 05/21/20 10:49 05/21/20 10:46 Wound Center Nurse 2 #10 right great toe plantar -Time 10:47 -Correct Patient Yes -Correct Side, Site, Position Yes -Correct Procedure Yes -Procedure Performed Yes -Type of Procedure Debridement -Clinical Debridement Subcutaneous -Tissue Removed Subcutaneous -Post Debridement (cm) - Length 1.5 -Post Debridement (cm) - Width 1.7 -Post Debridement (cm) - Depth 0.3 -Total Square (Post) (cm) 2.55 -Area of Debridement (cm) - Length 1.5 -Area of Debridement (cm) - Width 1.7 -Total Square (Area) (cm) 2.55 -Tunneling No -Undermining/Tunneling No -Circular Undermining No -Wound/Ulcer Outcome Not Healed -Ulcer Cleansing Rinsed/ Irrigated with Saline -Foul Odor after Cleansing No -Bioengineered Tissue Yes -Type of Bioengineered Tissue Epifix 18mm Disc -Expiration Date 01/17/25 -Product Lot Number [id number] -Percent Used 100 -Saline Lot Number [id number] -Bleeding Controlled with Pressure -Offloading Yes -Type of Offloading Camwalker -Treatment Response Procedure Tolerated Well -Debridement - Subq, 1st 20sq cm No -Apply Skin Sub - 1st 25 sq cm - Feet 1 -Epifix 18mm Disc 3 Query Text:18mm = 3 - Nurse 3 - General Ulcer D/C NN Start: 05/20/20 11:12 Freq: Status: Active Protocol: Activity Type Activity Date Activity User E-Sign Co-Sign Detail Recorded Client Recorded Date Recorded By Document 05/20/20 11:13 [id number] 05/20/20 11:18 Document 05/21/20 11:04 RB [id number] 05/21/20 11:05 RB 05/20/20 05/21/20 11:13 11:04 Wound Care Nurse 3 #10 right great toe plantar -Primary Dressing Covered/Secured with Dry Gauze,Dry Gauze & Roll Gauze,Secured with Tape Right -Tubular Bandage Single Layer -Size of Tubigrip Used Size D -Size D ($) 1 -Stockings No Treatment Response Procedure Tolerated Well Pain Scale: 0-10 Numeric Is Patient Pain Free? Yes Yes - Visit Discharge Discharge Condition Stable Stable Ambulatory Status Ambulatory, Ambulatory Walker Transportation Private Auto Private Auto Medication Reconcilliation completed & Yes No provided to patient/care provider Clinical Summary of Care Provided Yes Yes Notes: kneewalker Wound debrided: plantar hallux Laterality: Right Wound Grade/Stage: grade 3 Type of Debridement: Excisional debridement Anesthesia Used: 5% Lidocaine Gel Depth: in the subcutaneous layer Percentage of wound debrided: 100 Instrument Used: #15 blade Tissue Removed: fibrous, devitalized subcutaneous, biofilm, slough Severity: Fat Layer Exposed Assessment/Plan Active Problems Osteomyelitis (Chronic) 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 Ulcer right hallux bone layer exposed (peter grade 3). osteomyelitis distal phalanx of hallux. Cellulitis and osteomyelitis right foot addressed with oral antibiotics. Hallux limitus Plan: I reviewed and discussed his case. The ulcer was debrided today as noted in the clinical panel. Advance wound healing product epi-fix was recommended and this was applied after verbal consent was obtained today. This was applied according standard protocol and he tolerated this well. This epi-cord was also secured in place with a wound veil and Steri-Strips. A secondary dressing was reapplied. He was advised to keep this clean, dry, and intact until follow-up next week. I recommend this because he is high risk for continued amputation, infection, loss of limb and life due to his recurrent infections and tissue loss. This is medically necessary. His diagnostic data was reviewed and he did not have leukocytosis. His sedimentation rate was 44. His hemoglobin A1c was recently checked and was over 11%. He is undergoing medical management to help him decrease this. He is making lifestyle changes and is working less. His toe x-ray did not demonstrate any acute fracture dislocation or soft tissue emphysema or foreign body. His recent ankle x-ray did not demonstrate any fracture, dislocation, radiographic evidence of Charcot, soft tissue emphysema or foreign body. Significant small vessel calcification is seen. Subsequent MRI of the foot did confirm acute osteomyelitis of the distal phalanx of the hallux. He was advised to heel weight in the surgical shoe as recommended; he already has this. To avoid driving or any activity that continues to place pressure on this ulcer site. He relates he will repetitively uses his forefoot for driving and he also often places his foot next to a heater. I recommended offloading this more aggressively with a cam walker boot with dual density offloading Plastizote liners. He did get fitted for this at the foot [facility] center and understands proper use. His dressing is extremely soiled and compliance was reviewed. I also recommend nutritional supplementation and a prescription for Tripp was provided. To improve glucose management. We discussed adequate protein intake and I answered his questions. To continue with improved nutrition to improve wellbeing and glycemic control. He is scheduled to see a network engineer administrator. His microbiology reports were reviewed and it appears he has multi-organism growth. To continue on Augmentin and levofloxacin. He was seen by infectious disease as well. We discussed wound care and antibiotics first with the addition of hyperbaric oxygen versus amputation including the indications and treatment options. The indications, benefits, anticipated course and management of hyperbaric oxygen therapy was discussed. He had an EF of about 45%. He is scheduled at this time and his prescription for continued session was updated by Shoshana Medina, clinical nurse practitioner. He understands he is at continued risk of limb loss and his success is compromised by his medical instability. I also recommend updating his noninvasive vascular studies and this has been scheduled. He had abnormal findings with calcification and noncompressible vessels. Given his recent rapid gangrenous finding a tissue loss I recommend a vascular surgery referral. A referral was provided see Dr. Olvera and input will be greatly appreciated.This was scheduled. I answered all his questions. To follow-up with the wound healing center in 1 week.
[2020-05-22 09:10] LABS: Bedside Glucose 181 mg/dL (70-110)
[2020-05-22 09:27] VITALS: BP 136/88; BP 143/99; PULSE 78; PULSE 89; RESP 16; RESP 18; TEMP 36; TEMP 36.1
[2020-05-22 11:20] LABS: Bedside Glucose 148 mg/dL (70-110)
--- NOTE | 2020-05-22 12:41 | PCM.HBO.PN ---
History of Present Illness Date of Service: 05/22/20 Presenting Chief Complaint: Chronic right great toe ulceration with necrosis of bone/osteomyelitis?Peter grade 3 OLY SMITH is a 59 year old currently undergoing hyperbaric oxygen therapy for Peter grade 3 ulceration of the right great toe with osteomyelitis. Progress: Today's hyperbaric oxygen therapy session represents the 18th such session of an anticipated 20 such treatments. Tolerance of hyperbaric oxygen therapy: Hyperbaric oxygen therapy was administered as per the facility's protocol. Hyperbaric oxygen therapy was administered at 2 lisa and 100% oxygen for 90 minutes, with no air breaks. Hyperbaric oxygen therapy was tolerated well, without complaints or complications. Upon emergence from the hyperbaric chamber, the patient's vital signs remained stable. Pre-and post blood glucose levels are documented elsewhere. The patient was discharged in good condition. 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) Type 2 diabetes mellitus with diabetic polyneuropathy (Chronic) Type 2 diabetes mellitus with diabetic polyneuropathy (Chronic) Cellulitis of right foot (Chronic) Type 1 diabetes mellitus (Chronic) Malnutrition (Chronic) Delayed wound healing (Chronic) PVD (peripheral vascular disease) (Chronic) Ulcer of right foot with necrosis of muscle (Chronic) Hammer toe of right foot (Chronic) Ulcer of right foot with fat layer exposed (Chronic) Non-pressure chronic ulcer of right heel and midfoot with bone involvement without evidence of necrosis (Chronic) Diabetic ulcer of right foot (Chronic) Type 2 diabetes mellitus with diabetic polyneuropathy (Chronic) Diabetes mellitus type II, uncontrolled (Chronic) Obesity (BMI 30-39.9) (Chronic) Tobacco use (Chronic) Allergies/Adverse Reactions: Allergies No Known Allergies Allergy (Verified 02/27/20 12:53) Home Medications: Ambulatory Orders Medication Instructions Recorded Insulin Aspart [Novolog Flexpen 25 units SUBCUT TIDCM 02/27/20 ([facility])] Insulin Glargine [Lantus SoloStar 100 units SUBCUT BID 02/27/20 Pen] Semaglutide [Ozempic] 0.25 mg SQ QWEEK 05/20/20 Maternal Family History: - - Other with a history of colon cancer, metastatic. Paternal Family History: - - Father with a history of prostate cancer. Smoking Status: Never smoker Tobacco Use: Non-smoker Physical Exam Vital Signs Temp Pulse Resp BP 97 F L 89 18 136/88 H 05/22/20 09:27 05/22/20 09:27 05/22/20 09:27 05/22/20 09:27 General: Alert, Oriented x3, Cooperative, No apparent distress HEENT: Atraumatic, Normocephalic Lungs: Normal air movement Psych/Mental Status: Normal Affect Assessment/Plan Active Problems Osteomyelitis (Chronic) Chronic ulcer of right foot with necrosis of bone (Chronic) Type 2 diabetes mellitus with diabetic polyneuropathy (Chronic) Diabetic foot ulcer associated with diabetes mellitus due to underlying condition (Acute) Malnutrition (Chronic) Delayed wound healing (Chronic) PVD (peripheral vascular disease) (Chronic) Diabetes mellitus type II, uncontrolled (Chronic) The patient appears to be tolerating hyperbaric oxygen therapy well, which will be continued as per the patient's medical plan. Treatment Course Number Number of HBO Treatments 20 Ordered Treatment Course Number 1 Treatment # 18 Chamber # [id number] Chamber Type Monoplace HBO Diagnosis/Indication Diagnosis/Indication(s) for Right Diabetic Foot Ulcer Hyperbaric Therapy Classification - Peter Grade 3 Grading (Diabetic Ulcer) Diabetes - Detail Diabetes Diabetes Type II Right Extremity Ulcer, Heel & Midfoot Treatment Plan VALERIO (Atmospheric Absolute) 2 Number of Minutes 90 Number of Air Breaks 0 HBO Supervision.
[2020-05-23 08:01] LABS: Bedside Glucose 160 mg/dL (70-110)
[2020-05-23 09:56] LABS: Bedside Glucose 204 mg/dL (70-110)
[2020-05-23 10:11] LABS: Bedside Glucose 119 mg/dL (70-110)
[2020-05-23 10:36] VITALS: BP 130/86; BP 145/80; PULSE 79; PULSE 85; RESP 16; TEMP 36.1; TEMP 36.4
--- NOTE | 2020-05-23 11:17 | PCM.HBO.PN ---
History of Present Illness Date of Service: 05/23/20 Presenting Chief Complaint: Chronic right great toe ulceration with necrosis of bone/osteomyelitis?Peter grade 3 OLY SMITH is a 59 year old currently undergoing hyperbaric oxygen therapy for Peter grade 3 ulceration of the right great toe with osteomyelitis. Progress: Today's hyperbaric oxygen therapy session represents the 19th such session of an anticipated 20 such treatments. Tolerance of hyperbaric oxygen therapy: Hyperbaric oxygen therapy was administered as per the facility's protocol. Hyperbaric oxygen therapy was administered at 2 lisa and 100% oxygen for 90 minutes, with no air breaks. Hyperbaric oxygen therapy was tolerated well, without complaints or complications. Upon emergence from the hyperbaric chamber, the patient's vital signs remained stable. Pre-and post blood glucose levels are documented elsewhere. The patient was discharged in good condition. 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) Type 2 diabetes mellitus with diabetic polyneuropathy (Chronic) Type 2 diabetes mellitus with diabetic polyneuropathy (Chronic) Cellulitis of right foot (Chronic) Type 1 diabetes mellitus (Chronic) Malnutrition (Chronic) Delayed wound healing (Chronic) PVD (peripheral vascular disease) (Chronic) Ulcer of right foot with necrosis of muscle (Chronic) Hammer toe of right foot (Chronic) Ulcer of right foot with fat layer exposed (Chronic) Non-pressure chronic ulcer of right heel and midfoot with bone involvement without evidence of necrosis (Chronic) Diabetic ulcer of right foot (Chronic) Type 2 diabetes mellitus with diabetic polyneuropathy (Chronic) Diabetes mellitus type II, uncontrolled (Chronic) Obesity (BMI 30-39.9) (Chronic) Tobacco use (Chronic) Allergies/Adverse Reactions: Allergies No Known Allergies Allergy (Verified 02/27/20 12:53) Home Medications: Ambulatory Orders Medication Instructions Recorded Insulin Aspart [Novolog Flexpen 25 units SUBCUT TIDCM 02/27/20 ([facility])] Insulin Glargine [Lantus SoloStar 100 units SUBCUT BID 02/27/20 Pen] Semaglutide [Ozempic] 0.25 mg SQ QWEEK 05/20/20 Maternal Family History: - - Other with a history of colon cancer, metastatic. Paternal Family History: - - Father with a history of prostate cancer. Smoking Status: Never smoker Tobacco Use: Non-smoker Alcohol: None Drugs: None Physical Exam Vital Signs Temp Pulse Resp BP 97.5 F L 85 16 145/80 H 05/23/20 10:36 05/23/20 10:36 05/23/20 10:36 05/23/20 10:36 General: Alert, Oriented x3, Cooperative, No apparent distress Psych/Mental Status: Normal Affect, Appropriate Assessment/Plan Active Problems Osteomyelitis (Chronic) Chronic ulcer of right foot with necrosis of bone (Chronic) Type 2 diabetes mellitus with diabetic polyneuropathy (Chronic) Diabetic foot ulcer associated with diabetes mellitus due to underlying condition (Acute) Malnutrition (Chronic) Delayed wound healing (Chronic) PVD (peripheral vascular disease) (Chronic) Diabetes mellitus type II, uncontrolled (Chronic) The patient appears to be tolerating hyperbaric oxygen therapy well, which will be continued as per the patient's medical plan. Treatment Course Number Number of HBO Treatments 20 Ordered Treatment Course Number 1 Treatment # 19 Chamber # 2 Chamber Type Monoplace HBO Diagnosis/Indication Diagnosis/Indication(s) for Right Diabetic Foot Ulcer Hyperbaric Therapy Classification - Peter Grade 3 Grading (Diabetic Ulcer) Diabetes - Detail Diabetes Diabetes Type II Right Extremity Ulcer, Heel & Midfoot Treatment Plan VALERIO (Atmospheric Absolute) 2.0 Number of Minutes 90 Number of Air Breaks 0
[2020-05-27 09:11] LABS: Bedside Glucose 133 mg/dL (70-110)
[2020-05-27 11:55] LABS: Bedside Glucose 159 mg/dL (70-110)
[2020-05-27 12:18] VITALS: BP 141/85; BP 150/97; PULSE 84; PULSE 87; RESP 16; TEMP 36.3
--- NOTE | 2020-05-27 12:49 | HBO.PN.PCM_ITS ---
History of Present Illness Date of Service: 05/27/20 Presenting Chief Complaint: Chronic right great toe ulceration with necrosis of bone/osteomyelitis?Peter grade 3 OLY SMITH is a 59 year old currently undergoing hyperbaric oxygen therapy for Peter grade 3 ulceration of the right great toe with osteomyelitis. Progress: Today's hyperbaric oxygen therapy session represents the 20th such session of an anticipated 20 such treatments. Tolerance of hyperbaric oxygen therapy: Hyperbaric oxygen therapy was administered as per the facility's protocol. Hyperbaric oxygen therapy was administered at 2 lisa and 100% oxygen for 90 minutes, with no air breaks. Hyperbaric oxygen therapy was tolerated well, without complaints or complications. Upon emergence from the hyperbaric chamber, the patient's vital signs remained stable. Pre-and post blood glucose levels are documented elsewhere. The patient was discharged in good condition. 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) Type 2 diabetes mellitus with diabetic polyneuropathy (Chronic) Type 2 diabetes mellitus with diabetic polyneuropathy (Chronic) Cellulitis of right foot (Chronic) Type 1 diabetes mellitus (Chronic) Malnutrition (Chronic) Delayed wound healing (Chronic) PVD (peripheral vascular disease) (Chronic) Ulcer of right foot with necrosis of muscle (Chronic) Hammer toe of right foot (Chronic) Ulcer of right foot with fat layer exposed (Chronic) Non-pressure chronic ulcer of right heel and midfoot with bone involvement without evidence of necrosis (Chronic) Diabetic ulcer of right foot (Chronic) Type 2 diabetes mellitus with diabetic polyneuropathy (Chronic) Diabetes mellitus type II, uncontrolled (Chronic) Obesity (BMI 30-39.9) (Chronic) Tobacco use (Chronic) Allergies/Adverse Reactions: Allergies No Known Allergies Allergy (Verified 02/27/20 12:53) Home Medications: Ambulatory Orders Medication Instructions Recorded Insulin Aspart [Novolog Flexpen 25 units SUBCUT TIDCM 02/27/20 ([facility])] Insulin Glargine [Lantus SoloStar 100 units SUBCUT BID 02/27/20 Pen] Semaglutide [Ozempic] 0.25 mg SQ QWEEK 05/20/20 Maternal Family History: - - Other with a history of colon cancer, metastatic. Paternal Family History: - - Father with a history of prostate cancer. Smoking Status: Never smoker Tobacco Use: Non-smoker Alcohol: None Drugs: None Physical Exam Vital Signs Temp Pulse Resp BP 97.3 F L 87 16 141/85 H 05/27/20 12:18 05/27/20 12:18 05/27/20 12:18 05/27/20 12:18 General: Alert, Oriented x3, Cooperative, No apparent distress, Well developed, Well nourished HEENT: Atraumatic, PERRLA, EOMI, Normocephalic Lungs: Normal air movement Psych/Mental Status: Normal Affect, Appropriate, Alert and oriented to time, place, person, mood and affect Assessment/Plan Active Problems Osteomyelitis (Chronic) Chronic ulcer of right foot with necrosis of bone (Chronic) Type 2 diabetes mellitus with diabetic polyneuropathy (Chronic) Diabetic foot ulcer associated with diabetes mellitus due to underlying condition (Acute) Malnutrition (Chronic) Delayed wound healing (Chronic) PVD (peripheral vascular disease) (Chronic) Diabetes mellitus type II, uncontrolled (Chronic) The patient appears to be tolerating hyperbaric oxygen therapy well, which will be continued as per the patient's medical plan. Treatment Course Number Number of HBO Treatments 20 Ordered Treatment Course Number 1 Treatment # 20 Chamber # 1 Chamber Type Monoplace HBO Diagnosis/Indication Diagnosis/Indication(s) for Right Diabetic Foot Ulcer Hyperbaric Therapy Classification - Peter Grade 3 Grading (Diabetic Ulcer) Diabetes - Detail Diabetes Diabetes Type II Right Extremity Ulcer, Heel & Midfoot Treatment Plan VALERIO (Atmospheric Absolute) 2 Number of Minutes 90 Number of Air Breaks 0
[2020-05-28 08:11] LABS: Bedside Glucose 172 mg/dL (70-110)
[2020-05-28 10:35] LABS: Bedside Glucose 188 mg/dL (70-110)
--- NOTE | 2020-05-28 10:38 | HBO.PN.PCM_ITS ---
History of Present Illness Date of Service: 05/28/20 Presenting Chief Complaint: Chronic right great toe ulceration with necrosis of bone/osteomyelitis?Peter grade 3 OLY SMITH is a 59 year old currently undergoing hyperbaric oxygen therapy for Peter grade 3 ulceration of the right great toe with osteomyelitis. Progress: Today's hyperbaric oxygen therapy session represents the 21st such session of an anticipated 60 such treatments. Tolerance of hyperbaric oxygen therapy: Hyperbaric oxygen therapy was administered as per the facility's protocol. Hyperbaric oxygen therapy was administered at 2 lisa and 100% oxygen for 90 minutes, with no air breaks. Hyperbaric oxygen therapy was tolerated well, without complaints or complications. Upon emergence from the hyperbaric chamber, the patient's vital signs remained stable. Pre-and post blood glucose levels are documented elsewhere. The patient was discharged in good condition. 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) Type 2 diabetes mellitus with diabetic polyneuropathy (Chronic) Type 2 diabetes mellitus with diabetic polyneuropathy (Chronic) Cellulitis of right foot (Chronic) Type 1 diabetes mellitus (Chronic) Malnutrition (Chronic) Delayed wound healing (Chronic) PVD (peripheral vascular disease) (Chronic) Ulcer of right foot with necrosis of muscle (Chronic) Hammer toe of right foot (Chronic) Ulcer of right foot with fat layer exposed (Chronic) Non-pressure chronic ulcer of right heel and midfoot with bone involvement without evidence of necrosis (Chronic) Diabetic ulcer of right foot (Chronic) Type 2 diabetes mellitus with diabetic polyneuropathy (Chronic) Diabetes mellitus type II, uncontrolled (Chronic) Obesity (BMI 30-39.9) (Chronic) Tobacco use (Chronic) Allergies/Adverse Reactions: Allergies No Known Allergies Allergy (Verified 02/27/20 12:53) Home Medications: Ambulatory Orders Medication Instructions Recorded Insulin Aspart [Novolog Flexpen 25 units SUBCUT TIDCM 02/27/20 ([facility])] Insulin Glargine [Lantus SoloStar 100 units SUBCUT BID 02/27/20 Pen] Semaglutide [Ozempic] 0.25 mg SQ QWEEK 05/20/20 Maternal Family History: - - Other with a history of colon cancer, metastatic. Paternal Family History: - - Father with a history of prostate cancer. 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 Treatment Course Number Number of HBO Treatments 20 Ordered Treatment Course Number 1 Treatment # 20 Chamber # 1 Chamber Type Monoplace HBO Diagnosis/Indication Diagnosis/Indication(s) for Right Diabetic Foot Ulcer Hyperbaric Therapy Classification - Peter Grade 3 Grading (Diabetic Ulcer) Diabetes - Detail Diabetes Diabetes Type II Right Extremity Ulcer, Heel & Midfoot Treatment Plan VALERIO (Atmospheric Absolute) 2 Number of Minutes 90 Number of Air Breaks 0
[2020-05-28 11:00] VITALS: BP 133/87; PULSE 74; RESP 18; TEMP 36.7; BMI 39.9
[2020-05-28 11:15] VITALS: BP 133/87; BP 135/78; PULSE 74; PULSE 85; RESP 18; TEMP 36.4; TEMP 36.7
--- NOTE | 2020-05-28 13:12 | PN.PCM_ITS ---
(1) Osteomyelitis Status: Chronic Current Visit: Yes Qualifiers: Laterality: right Code(s): M86.9 - Osteomyelitis, unspecified (2) Chronic ulcer of right foot with necrosis of bone Status: Chronic Current Visit: Yes Code(s): L97.514 - Non-pressure chronic ulcer of other part of right foot with necrosis of bone (3) Type 2 diabetes mellitus with diabetic polyneuropathy Status: Chronic Current Visit: Yes Qualifiers: Code(s): E11.42 - Type 2 diabetes mellitus with diabetic polyneuropathy (4) Delayed wound healing Status: Chronic Current Visit: Yes Code(s): T14.8XXD - Other injury of unspecified body region, subsequent encounter (5) PVD (peripheral vascular disease) Status: Chronic Current Visit: Yes Code(s): I73.9 - Peripheral vascular disease, unspecified Type of Wound Date of Service: 05/28/20 Chief Complaint: Chronic right great toe ulceration with necrosis of bone/osteomyelitis?Peter grade 3 History of Wound: 59-year-old white male with diabetes and other comorbidities was seen today for right foot ulcer. He has completed his 6-week oral antibiotic course under the management of infectious disease without reported side effects. He has a Peter grade 3 ulcer and has also been diagnosed with acute osteomyelitis clinically and with MRI and clinical evaluation. He denies fever, chill, nausea, vomiting, diarrhea or other side effects since he started on antibiotics. He has been undergoing hyperbaric oxygen therapy treatment. He relates that he has kept his dressing clean and intact this past week. However, his dressing is soiled again. Progress of Wound: Improving. - Physical Exam Vital Signs Temp Pulse Resp BP 97.6 F L 85 18 135/78 H 05/28/20 11:15 05/28/20 11:15 05/28/20 11:15 05/28/20 11:15 General: Alert, Oriented x3, Cooperative, No apparent distress HEENT: Atraumatic Extremities: No cyanosis, No edema, Capillary Refill Less than 3 Seconds, No Calf Tenderness, Diminished Peripheral Pulses, Edema Skin: Ulcer/ Wound - No purulence, erythema, streaking, odor, infection. Continue peripheral epithelialization and reduce ulcer depth noted. The ulcer bed is granular. His skin is atrophic and hairless Wound Measurements and Assessment WC - Nurse 1 - General Ulcer Measurement Start: 05/20/20 11:12 Freq: Status: Active Protocol: Activity Type Activity Date Activity User E-Sign Co-Sign Detail Recorded Client Recorded Date Recorded By Document 05/28/20 11:00 RB [id number] 05/28/20 11:02 05/28/20 11:00 Wound Center Nurse 1 [Ulcer Assessment] #10 right great toe plantar -Combined with other wound No -Current Size (cm) - Length 0.6 -Current Size (cm) - Width 0.6 -Current Size (cm) - Depth 0.2 -Total Square Cm 0.36 -Tunneling No -Undermining/Tunneling No -Circular Undermining No -Exudate Amt Small -Exudate Type Serosanguineous -Wound Margin Thickened -Granulation Amt Medium (34-66%) -Granulation Quality [place] -Slough/Fibrin Yes -Necrosis Amt Small (1-33%) -Necrotic Tissue Type Adherent Slough -Structure Exposed N/A -Texture (Belle-wound Skin Appearance) Assessed,Callus -Moisture (Belle-wound Skin Appearance Assessed ) -Color (Belle-wound Skin Appearance) Assessed -Temperature (Belle-wound Skin No Abnormality Appearance) (Pt Warm) -Tenderness on Palpation (Belle-wound No Skin Appearance) -Ulcer Cleansing Wound Cleanser -Foul Odor after Cleansing No -Anesthetic Used 5% Lidocaine Gel WC - Nurse 2 - General Ulcer CM Notes Start: 05/20/20 11:12 Freq: Status: Active Protocol: Activity Type Activity Date Activity User E-Sign Co-Sign Detail Recorded Client Recorded Date Recorded By Document 05/28/20 11:24 [id number] 05/28/20 11:25 05/28/20 11:24 Wound Center Nurse 2 [Procedure/Treatment] -Time 11:24 -Correct Patient Yes -Correct Side, Site, Position Yes -Correct Procedure Yes -Procedure Performed Yes -Type of Procedure Debridement -Clinical Debridement Subcutaneous -Tissue Removed Subcutaneous -Post Debridement (cm) - Length 0.8 -Post Debridement (cm) - Width 0.8 -Post Debridement (cm) - Depth 0.2 -Total Square (Post) (cm) 0.64 -Area of Debridement (cm) - Length 0.8 -Area of Debridement (cm) - Width 0.8 -Total Square (Area) (cm) 0.64 -Tunneling No -Undermining/Tunneling No -Circular Undermining No -Wound/Ulcer Outcome Not Healed -Ulcer Cleansing Rinsed/ Irrigated with Saline -Foul Odor after Cleansing No -Bioengineered Tissue Yes -Type of Bioengineered Tissue Epifix 18mm Disc -Expiration Date 01/17/25 -Product Lot Number [id number] -Percent Used 100 -Saline Lot Number [id number] -Bleeding Controlled with Pressure -Offloading Yes -Type of Offloading Camwalker -Treatment Response Procedure Tolerated Well -Debridement - Subq, 1st 20sq cm No -Apply Skin Sub - 1st 25 sq cm - Feet 1 -Epifix 18mm Disc 3 Query Text:18mm = 3 [See Physician Procedure note for Specifics] WC - Nurse 3 - General Ulcer D/C NN Start: 05/20/20 11:12 Freq: Status: Active Protocol: Activity Type Activity Date Activity User E-Sign Co-Sign Detail Recorded Client Recorded Date Recorded By Document 05/27/20 12:18 [id number] 05/27/20 12:21 Document 05/28/20 11:46 PA [id number] 05/28/20 11:47 PA 05/27/20 05/28/20 12:18 11:46 Wound Care Nurse 3 [Wound Dressing] #10 right great toe plantar -Primary Dressing Covered/Secured Dry Gauze, with Secured with Tape [Compression Applied] Right -Size of Tubigrip Used Size C -Size C ($) 1 Pain Scale: 0-10 Numeric [Pain] -Is Patient Pain Free? Yes - Visit Discharge [Visit Discharge Information] -Discharge Condition Stable Stable -Ambulatory Status Ambulatory, Walker Walker -Transportation Private Auto Private Auto -Medication Reconcilliation completed Yes No & provided to patient/care provider -Clinical Summary of Care Provided Yes Yes Musculoskeletal: No Tenderness to Palpation of Joints or Extremities, Muscle Wasting, - - No bogginess or fluctuance on palpation. He was loaded first metatarsal phalangeal joint range of motion consistent with hallux limitus Neurological: - - Lack of epicritic sensation via light. Psych/Mental Status: Normal Affect, Appropriate Debridement Note Post-Debridement Measurements/Treatment - Nurse 2 - General Ulcer CM Notes Start: 05/20/20 11:12 Freq: Status: Active Protocol: Activity Type Activity Date Activity User E-Sign Co-Sign Detail Recorded Client Recorded Date Recorded By Document 05/21/20 10:46 [id number] 05/21/20 10:49 Document 05/28/20 11:24 [id number] 05/28/20 11:25 05/21/20 05/28/20 10:46 11:24 Wound Center Nurse 2 #10 right great toe plantar -Time 10:47 11:24 -Correct Patient Yes Yes -Correct Side, Site, Position Yes Yes -Correct Procedure Yes Yes -Procedure Performed Yes Yes -Type of Procedure Debridement Debridement -Clinical Debridement Subcutaneous Subcutaneous -Tissue Removed Subcutaneous Subcutaneous -Post Debridement (cm) - Length 1.5 0.8 -Post Debridement (cm) - Width 1.7 0.8 -Post Debridement (cm) - Depth 0.3 0.2 -Total Square (Post) (cm) 2.55 0.64 -Area of Debridement (cm) - Length 1.5 0.8 -Area of Debridement (cm) - Width 1.7 0.8 -Total Square (Area) (cm) 2.55 0.64 -Tunneling No No -Undermining/Tunneling No No -Circular Undermining No No -Wound/Ulcer Outcome Not Healed Not Healed -Ulcer Cleansing Rinsed/ Rinsed/ Irrigated with Irrigated with Saline Saline -Foul Odor after Cleansing No No -Bioengineered Tissue Yes Yes -Type of Bioengineered Tissue Epifix 18mm Epifix 18mm Disc Disc -Expiration Date 01/17/25 01/17/25 -Product Lot Number [id number] -Percent Used 100 100 -Saline Lot Number [id number] -Bleeding Controlled with Pressure Pressure -Offloading Yes Yes -Type of Offloading Camwalker Camwalker -Treatment Response Procedure Procedure Tolerated Well Tolerated Well -Debridement - Subq, 1st 20sq cm No No -Apply Skin Sub - 1st 25 sq cm - Feet 1 1 -Epifix 18mm Disc 3 3 Query Text:18mm = 3 WC - Nurse 3 - General Ulcer D/C NN Start: 05/20/20 11:12 Freq: Status: Active Protocol: Activity Type Activity Date Activity User E-Sign Co-Sign Detail Recorded Client Recorded Date Recorded By Document 05/20/20 11:13 [id number] 05/20/20 11:18 Document 09/02/20 11:04 RB [id number] 05/21/20 11:05 RB Document 05/23/20 10:36 [id number] 05/23/20 10:39 JF Document 05/27/20 12:18 [id number] 05/27/20 12:21 Document 05/28/20 11:46 PA [id number] 05/28/20 11:47 PA 05/20/20 05/21/20 05/23/20 11:13 11:04 10:36 Wound Care Nurse 3 #10 right great toe plantar -Primary Dressing Covered/Secured with Dry Gauze,Dry Gauze & Roll Gauze,Secured with Tape Right -Tubular Bandage Single Layer -Size of Tubigrip Used Size D -Size C ($) -Size D ($) 1 -Stockings No Treatment Response Procedure Tolerated Well Pain Scale: 0-10 Numeric Is Patient Pain Free? Yes Yes Yes WC - Visit Discharge Discharge Condition Stable Stable Stable Ambulatory Status Ambulatory, Ambulatory Ambulatory, Walker Walker Transportation Private Auto Private Auto Private Auto Medication Reconcilliation completed & Yes No Yes provided to patient/care provider Clinical Summary of Care Provided Yes Yes Yes Notes: stiven 05/27/20 05/28/20 12:18 11:46 Wound Care Nurse 3 #10 right great toe plantar -Primary Dressing Covered/Secured with Dry Gauze, Secured with Tape Right -Tubular Bandage -Size of Tubigrip Used Size C -Size C ($) 1 -Size D ($) -Stockings Treatment Response Pain Scale: 0-10 Numeric Is Patient Pain Free? Yes WC - Visit Discharge Discharge Condition Stable Stable Ambulatory Status Ambulatory, Walker Walker Transportation Private Auto Private Auto Medication Reconcilliation completed & Yes No provided to patient/care provider Clinical Summary of Care Provided Yes Yes Notes: Wound debrided: plantar hallux Laterality: Right Wound Grade/Stage: grade 3 Type of Debridement: Excisional debridement Anesthesia Used: 5% Lidocaine Gel Depth: in the subcutaneous layer Percentage of wound debrided: 100 Instrument Used: #15 blade Tissue Removed: fibrous, devitalized subcutaneous, biofilm, slough Severity: Fat Layer Exposed Amount of bleeding with debridement: Mild Bleeding Controlled with: Pressure Patient tolerated procedure well Assessment/Plan Active Problems Osteomyelitis (Chronic) 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 Ulcer right hallux bone layer exposed (peter grade 3). osteomyelitis distal phalanx of hallux. Cellulitis and osteomyelitis right foot addressed with oral antibiotics. Hallux limitus Plan: I reviewed and discussed his case. The ulcer was debrided today as noted in the clinical panel. Advanced wound healing product epi-fix was recommended and this was applied after verbal consent was obtained today. This was applied according standard protocol and he tolerated this well. This epi-fix was also secured in place with a wound veil and Steri-Strips. A secondary dressing was reapplied. He was advised to keep this clean, dry, and intact until follow-up next week. I recommend this because he is high risk for continued amputation, infection, loss of limb and life due to his recurrent infections and tissue loss. This is medically necessary. His diagnostic data was reviewed and he did not have leukocytosis. His sedimentation rate was 44. His hemoglobin A1c was recently checked and was over 11%. He is undergoing medical management to help him decrease this. He is making lifestyle changes and is working less. His toe x-ray did not demonstrate any acute fracture dislocation or soft tissue emphysema or foreign body. His recent ankle x-ray did not demonstrate any fracture, dislocation, radiographic evidence of Charcot, soft tissue emphysema or foreign body. Significant small vessel calcification is seen. Subsequent MRI of the foot did confirm acute osteomyelitis of the distal phalanx of the hallux. He was advised to heel weight in the surgical shoe as recommended; he already has this. To avoid driving or any activity that continues to place pressure on this ulcer site. He relates he will repetitively uses his forefoot for driving and he also often places his foot next to a heater. I recommended offloading this more aggressively with a cam walker boot with dual density offloading Plastizote liners. He did get fitted for this at the [facility] center and understands proper use. His dressing is continually soiled and compliance was reviewed again today. I also recommend nutritional supplementation and a prescription for Tripp was provided. To improve glucose management. We discussed adequate protein intake and I answered his questions. To continue with improved nutrition to improve wellbeing and glycemic control. He is scheduled to see a special forces senior sergeant. His microbiology reports were reviewed and it appears he has multi-organism growth. To continue on Augmentin and levofloxacin. He was seen by infectious disease as well. We discussed wound care and antibiotics first with the addition of hyperbaric oxygen versus amputation including the indications and treatment options. The indications, benefits, anticipated course and management of hyperbaric oxygen therapy was discussed. He had an EF of about 45%. He is scheduled at this time and his prescription for continued session was updated by Shoshana Medina, clinical nurse practitioner. He understands he is at continued risk of limb loss and his success is compromised by his medical instability. I also recommend updating his noninvasive vascular studies and this has been scheduled. He had abnormal findings with calcification and noncompressible vessels. Given his recent rapid gangrenous finding a tissue loss I recommend a vascular surgery referral. A referral was provided see Dr. Olvera and input will be greatly appreciated.This was scheduled and he was advised to follow-up to aid in faster recovery at this time and to prevent future recurrence. I answered all his questions. To follow-up with the wound healing center in 1 week.
[2020-05-29 08:15] LABS: Bedside Glucose 160 mg/dL (70-110)
[2020-05-29 10:41] LABS: Bedside Glucose 130 mg/dL (70-110)
[2020-05-29 11:15] VITALS: BP 133/83; BP 153/86; PULSE 86; PULSE 88; RESP 16; RESP 18; TEMP 35.8; TEMP 36.8
--- NOTE | 2020-05-29 15:35 | HBO.PN.PCM_ITS ---
History of Present Illness Date of Service: 05/29/20 Presenting Chief Complaint: Chronic right great toe ulceration with necrosis of bone/osteomyelitis?Peter grade 3 OLY SMITH is a 59 year old currently undergoing hyperbaric oxygen therapy for Peter grade 3 ulceration of the right great toe with osteomyelitis. Progress: Today's hyperbaric oxygen therapy session represents the 22nd such session of an anticipated 60 such treatments. Tolerance of hyperbaric oxygen therapy: Hyperbaric oxygen therapy was administered as per the facility's protocol. Hyperbaric oxygen therapy was administered at 2 lisa and 100% oxygen for 90 minutes, with no air breaks. Hyperbaric oxygen therapy was tolerated well, without complaints or complications. Upon emergence from the hyperbaric chamber, the patient's vital signs remained stable. Pre-and post blood glucose levels are documented elsewhere. The patient was discharged in good condition. 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) Type 2 diabetes mellitus with diabetic polyneuropathy (Chronic) Type 2 diabetes mellitus with diabetic polyneuropathy (Chronic) Cellulitis of right foot (Chronic) Type 1 diabetes mellitus (Chronic) Malnutrition (Chronic) Delayed wound healing (Chronic) PVD (peripheral vascular disease) (Chronic) Ulcer of right foot with necrosis of muscle (Chronic) Hammer toe of right foot (Chronic) Ulcer of right foot with fat layer exposed (Chronic) Non-pressure chronic ulcer of right heel and midfoot with bone involvement without evidence of necrosis (Chronic) Diabetic ulcer of right foot (Chronic) Type 2 diabetes mellitus with diabetic polyneuropathy (Chronic) Diabetes mellitus type II, uncontrolled (Chronic) Obesity (BMI 30-39.9) (Chronic) Tobacco use (Chronic) Allergies/Adverse Reactions: Allergies No Known Allergies Allergy (Verified 02/27/20 12:53) Home Medications: Ambulatory Orders Medication Instructions Recorded Insulin Aspart [Novolog Flexpen 25 units SUBCUT TIDCM 02/27/20 ([facility])] Semaglutide [Ozempic] 0.25 mg SQ QWEEK 05/20/20 Insulin Degludec [Tresiba] 80 unit SQ BID 05/28/20 Maternal Family History: - - Other with a history of colon cancer, metastatic. Paternal Family History: - - Father with a history of prostate cancer. 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) Type 2 diabetes mellitus with diabetic polyneuropathy (Chronic) Diabetic foot ulcer associated with diabetes mellitus due to underlying condition (Acute) Malnutrition (Chronic) Delayed wound healing (Chronic) PVD (peripheral vascular disease) (Chronic) Diabetes mellitus type II, uncontrolled (Chronic) Treatment Course Number Number of HBO Treatments 60 Ordered Treatment Course Number 1 Treatment # 22 Chamber # [id number] Chamber Type Monoplace HBO Diagnosis/Indication Diagnosis/Indication(s) for Right Diabetic Foot Ulcer Hyperbaric Therapy Classification - Peter Grade 3 Grading (Diabetic Ulcer) Diabetes - Detail Diabetes Diabetes Type II Right Extremity Ulcer, Heel & Midfoot Treatment Plan VALERIO (Atmospheric Absolute) 2.0 Number of Minutes 90 Number of Air Breaks 0
[2020-06-02 08:16] LABS: Bedside Glucose 148 mg/dL (70-110)
[2020-06-02 08:56] VITALS: BP 132/72; BP 134/57; PULSE 84; PULSE 90; RESP 16; TEMP 36.2
[2020-06-02 10:41] LABS: Bedside Glucose 135 mg/dL (70-110)
--- NOTE | 2020-06-02 13:17 | PCM.HBO.PN ---
History of Present Illness Date of Service: 06/02/20 Presenting Chief Complaint: Chronic right great toe ulceration with necrosis of bone/osteomyelitis?Peter grade 3 OLY SMITH is a 59 year old currently undergoing hyperbaric oxygen therapy for Peter grade 3 ulceration of the right great toe with osteomyelitis. Progress: Today's hyperbaric oxygen therapy session represents the 23rd such session of an anticipated 60 such treatments. Tolerance of hyperbaric oxygen therapy: Hyperbaric oxygen therapy was administered as per the facility's protocol. Hyperbaric oxygen therapy was administered at 2 lisa and 100% oxygen for 90 minutes, with no air breaks. Hyperbaric oxygen therapy was tolerated well, without complaints or complications. Upon emergence from the hyperbaric chamber, the patient's vital signs remained stable. Pre-treatment blood glucose was 148 and post-treatment blood glucose was 135. The patient was discharged in good condition. 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) Type 2 diabetes mellitus with diabetic polyneuropathy (Chronic) Type 2 diabetes mellitus with diabetic polyneuropathy (Chronic) Cellulitis of right foot (Chronic) Type 1 diabetes mellitus (Chronic) Malnutrition (Chronic) Delayed wound healing (Chronic) PVD (peripheral vascular disease) (Chronic) Ulcer of right foot with necrosis of muscle (Chronic) Hammer toe of right foot (Chronic) Ulcer of right foot with fat layer exposed (Chronic) Non-pressure chronic ulcer of right heel and midfoot with bone involvement without evidence of necrosis (Chronic) Diabetic ulcer of right foot (Chronic) Type 2 diabetes mellitus with diabetic polyneuropathy (Chronic) Diabetes mellitus type II, uncontrolled (Chronic) Obesity (BMI 30-39.9) (Chronic) Tobacco use (Chronic) Allergies/Adverse Reactions: Allergies No Known Allergies Allergy (Verified 02/27/20 12:53) Home Medications: Ambulatory Orders Medication Instructions Recorded Insulin Aspart [Novolog Flexpen 25 units SUBCUT TIDCM 02/27/20 ([facility])] Semaglutide [Ozempic] 0.25 mg SQ QWEEK 05/20/20 Insulin Degludec [Tresiba] 80 unit SQ BID 05/28/20 Maternal Family History: - - Other with a history of colon cancer, metastatic. Paternal Family History: - - Father with a history of prostate cancer. 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) Type 2 diabetes mellitus with diabetic polyneuropathy (Chronic) Diabetic foot ulcer associated with diabetes mellitus due to underlying condition (Acute) Malnutrition (Chronic) Delayed wound healing (Chronic) PVD (peripheral vascular disease) (Chronic) Diabetes mellitus type II, uncontrolled (Chronic) Treatment Course Number Number of HBO Treatments 60 Ordered Treatment Course Number 1 Treatment # 23 Chamber # [id number] Chamber Type Monoplace HBO Diagnosis/Indication Diagnosis/Indication(s) for Right Diabetic Foot Ulcer Hyperbaric Therapy Classification - Peter Grade 3 Grading (Diabetic Ulcer) Diabetes - Detail Diabetes Diabetes Type II Right Extremity Ulcer, Heel & Midfoot Treatment Plan VALERIO (Atmospheric Absolute) 2 Number of Minutes 90 Number of Air Breaks 0 Hyperbaric Charges CPT - 68869 ICD-10 - E11.621, M86.9
[2020-06-03 08:11] LABS: Bedside Glucose 167 mg/dL (70-110)
[2020-06-03 10:20] LABS: Bedside Glucose 102 mg/dL (70-110)
[2020-06-03 11:12] VITALS: BP 128/73; BP 144/94; PULSE 79; PULSE 81; RESP 16; RESP 18; TEMP 35.9; TEMP 36
--- NOTE | 2020-06-03 14:47 | HBO.PN.PCM_ITS ---
History of Present Illness Date of Service: 06/03/20 Presenting Chief Complaint: Chronic right great toe ulceration with necrosis of bone/osteomyelitis?Peter grade 3 OLY SMITH is a 59 year old currently undergoing hyperbaric oxygen therapy for Peter grade 3 ulceration of the right great toe with osteomyelitis. Progress: Today's hyperbaric oxygen therapy session represents the 24th such session of an anticipated 60 such treatments. Tolerance of hyperbaric oxygen therapy: Hyperbaric oxygen therapy was administered as per the facility's protocol. Hyperbaric oxygen therapy was administered at 2 lisa and 100% oxygen for 90 minutes, with no air breaks. Hyperbaric oxygen therapy was tolerated well, without complaints or complications. Upon emergence from the hyperbaric chamber, the patient's vital signs remained stable. Pre-and post blood glucose levels are documented elsewhere. The patient was discharged in good condition. 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) Type 2 diabetes mellitus with diabetic polyneuropathy (Chronic) Type 2 diabetes mellitus with diabetic polyneuropathy (Chronic) Cellulitis of right foot (Chronic) Type 1 diabetes mellitus (Chronic) Malnutrition (Chronic) Delayed wound healing (Chronic) PVD (peripheral vascular disease) (Chronic) Ulcer of right foot with necrosis of muscle (Chronic) Hammer toe of right foot (Chronic) Ulcer of right foot with fat layer exposed (Chronic) Non-pressure chronic ulcer of right heel and midfoot with bone involvement without evidence of necrosis (Chronic) Diabetic ulcer of right foot (Chronic) Type 2 diabetes mellitus with diabetic polyneuropathy (Chronic) Diabetes mellitus type II, uncontrolled (Chronic) Obesity (BMI 30-39.9) (Chronic) Tobacco use (Chronic) Allergies/Adverse Reactions: Allergies No Known Allergies Allergy (Verified 02/27/20 12:53) Home Medications: Ambulatory Orders Medication Instructions Recorded Insulin Aspart [Novolog Flexpen 25 units SUBCUT TIDCM 02/27/20 ([facility])] Semaglutide [Ozempic] 0.25 mg SQ QWEEK 05/20/20 Insulin Degludec [Tresiba] 80 unit SQ BID 05/28/20 Maternal Family History: - - Other with a history of colon cancer, metastatic. Paternal Family History: - - Father with a history of prostate cancer. 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 Treatment Course Number Number of HBO Treatments 60 Ordered Treatment Course Number 1 Treatment # 24 Chamber # 1 Chamber Type Monoplace HBO Diagnosis/Indication Diagnosis/Indication(s) for Right Diabetic Foot Ulcer Hyperbaric Therapy Classification - Peetr Grade 3 Grading (Diabetic Ulcer) Diabetes - Detail Diabetes Diabetes Type II Right Extremity Ulcer, Heel & Midfoot Treatment Plan VALERIO (Atmospheric Absolute) 2.0 Number of Minutes 90 Number of Air Breaks 0
[2020-06-04 08:20] LABS: Bedside Glucose 135 mg/dL (70-110)
[2020-06-04 11:06] LABS: Bedside Glucose 114 mg/dL (70-110)
--- NOTE | 2020-06-04 11:09 | PCM.HBO.PN ---
History of Present Illness Date of Service: 06/04/20 Presenting Chief Complaint: Chronic right great toe ulceration with necrosis of bone/osteomyelitis?Peter grade 3 OLY SMITH is a 59 year old currently undergoing hyperbaric oxygen therapy for Peter grade 3 ulceration of the right great toe with osteomyelitis. Progress: Today's hyperbaric oxygen therapy session represents the 24th such session of an anticipated 60 such treatments. Tolerance of hyperbaric oxygen therapy: Hyperbaric oxygen therapy was administered as per the facility's protocol. Hyperbaric oxygen therapy was administered at 2 lisa and 100% oxygen for 90 minutes, with no air breaks. Hyperbaric oxygen therapy was tolerated well, without complaints or complications. Upon emergence from the hyperbaric chamber, the patient's vital signs remained stable. Pre-treatment blood glucose was 148 and post-treatment blood glucose was 135. The patient was discharged in good condition. 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) Type 2 diabetes mellitus with diabetic polyneuropathy (Chronic) Type 2 diabetes mellitus with diabetic polyneuropathy (Chronic) Cellulitis of right foot (Chronic) Type 1 diabetes mellitus (Chronic) Malnutrition (Chronic) Delayed wound healing (Chronic) PVD (peripheral vascular disease) (Chronic) Ulcer of right foot with necrosis of muscle (Chronic) Hammer toe of right foot (Chronic) Ulcer of right foot with fat layer exposed (Chronic) Non-pressure chronic ulcer of right heel and midfoot with bone involvement without evidence of necrosis (Chronic) Diabetic ulcer of right foot (Chronic) Type 2 diabetes mellitus with diabetic polyneuropathy (Chronic) Diabetes mellitus type II, uncontrolled (Chronic) Obesity (BMI 30-39.9) (Chronic) Tobacco use (Chronic) Allergies/Adverse Reactions: Allergies No Known Allergies Allergy (Verified 02/27/20 12:53) Home Medications: Ambulatory Orders Medication Instructions Recorded Insulin Aspart [Novolog Flexpen 25 units SUBCUT TIDCM 02/27/20 ([facility])] Semaglutide [Ozempic] 0.25 mg SQ QWEEK 05/20/20 Insulin Degludec [Tresiba] 80 unit SQ BID 05/28/20 Maternal Family History: - - Other with a history of colon cancer, metastatic. Paternal Family History: - - Father with a history of prostate cancer. 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 Treatment Course Number Number of HBO Treatments 60 Ordered Treatment Course Number 1 Treatment # 24 Chamber # 1 Chamber Type Monoplace HBO Diagnosis/Indication Diagnosis/Indication(s) for Right Diabetic Foot Ulcer Hyperbaric Therapy Classification - Peter Grade 3 Grading (Diabetic Ulcer) Diabetes - Detail Diabetes Diabetes Type II Right Extremity Ulcer, Heel & Midfoot Treatment Plan VALERIO (Atmospheric Absolute) 2.0 Number of Minutes 90 Number of Air Breaks 0
[2020-06-04 11:13] VITALS: BP 137/87; PULSE 90; RESP 18; TEMP 36.6; BMI 39.9
[2020-06-04 11:55] VITALS: BP 132/83; BP 137/87; PULSE 87; PULSE 90; RESP 18; TEMP 36.4
--- NOTE | 2020-06-04 13:25 | PN.PCM_ITS ---
(1) Osteomyelitis Status: Chronic Current Visit: Yes Qualifiers: Laterality: right Code(s): M86.9 - Osteomyelitis, unspecified (2) Chronic ulcer of right foot with necrosis of bone Status: Chronic Current Visit: Yes Code(s): L97.514 - Non-pressure chronic ulcer of other part of right foot with necrosis of bone (3) Type 2 diabetes mellitus with diabetic polyneuropathy Status: Chronic Current Visit: Yes Qualifiers: Code(s): E11.42 - Type 2 diabetes mellitus with diabetic polyneuropathy (4) Delayed wound healing Status: Chronic Current Visit: Yes Code(s): T14.8XXD - Other injury of unspecified body region, subsequent encounter (5) PVD (peripheral vascular disease) Status: Chronic Current Visit: Yes Code(s): I73.9 - Peripheral vascular disease, unspecified Type of Wound Date of Service: 06/04/20 Chief Complaint: Chronic right great toe ulceration with necrosis of bone/osteomyelitis?Peter grade 3 History of Wound: 59-year-old white male with diabetes and other comorbidities was seen today for right foot ulcer. He has completed his 6-week oral antibiotic course under the management of infectious disease without reported side effects. He has a Peter grade 3 ulcer and has also been diagnosed with acute osteomyelitis clinically and with MRI and clinical evaluation. He denies fever, chill, nausea, vomiting, diarrhea or other side effects since he started on antibiotics. He has been undergoing hyperbaric oxygen therapy treatment. Progress of Wound: Improving. - Physical Exam Vital Signs Temp Pulse Resp BP 97.6 F L 87 18 132/83 H 06/04/20 11:55 06/04/20 11:55 06/04/20 11:55 06/04/20 11:55 General: Alert, Oriented x3, Cooperative, No apparent distress HEENT: Atraumatic Extremities: No cyanosis, Capillary Refill Less than 3 Seconds, No Calf Tenderness, Diminished Peripheral Pulses, Edema Skin: Ulcer/ Wound - No purulence, erythema, streaking, odor, infection. Granulation tissue is progressing well. His adjacent skin is hairless and atrophic. Wound Measurements and Assessment WC - Nurse 1 - General Ulcer Measurement Start: 05/20/20 11:12 Freq: Status: Active Protocol: Activity Type Activity Date Activity User E-Sign Co-Sign Detail Recorded Client Recorded Date Recorded By Document 06/04/20 11:13 BMF [id number] 06/04/20 11:19 [facility] 06/04/20 11:13 Wound Center Nurse 1 [Ulcer Assessment] #10 right great toe plantar -Combined with other wound No -Current Size (cm) - Length 0.5 -Current Size (cm) - Width 0.5 -Current Size (cm) - Depth 0.2 -Total Square Cm 0.25 -Photo Taken No -Epithelialization Medium 34-66% -Tunneling No -Undermining/Tunneling No -Circular Undermining No -Exudate Amt Small -Exudate Type Serosanguineous -Wound Margin Distinct, Outline Attached -Granulation Amt Large (67-100%) -Granulation Quality Red -Slough/Fibrin No -Necrosis Amt None Present (0 %) -Texture (Belle-wound Skin Appearance) Assessed,Callus ,Scarring -Moisture (Belle-wound Skin Appearance Assessed,Dry/ ) Scaly -Color (Belle-wound Skin Appearance) Assessed -Temperature (Belle-wound Skin No Abnormality Appearance) (Pt Warm) -Tenderness on Palpation (Belle-wound No Skin Appearance) -Ulcer Cleansing Rinsed/ Irrigated with Saline -Foul Odor after Cleansing No -Anesthetic Used 5% Lidocaine Gel WC - Nurse 2 - General Ulcer CM Notes Start: 05/20/20 11:12 Freq: Status: Active Protocol: Activity Type Activity Date Activity User E-Sign Co-Sign Detail Recorded Client Recorded Date Recorded By Document 06/04/20 12:07 [id number] 06/04/20 12:08 06/04/20 12:07 Wound Center Nurse 2 [Procedure/Treatment] -Time 12:07 -Correct Patient Yes -Correct Side, Site, Position Yes -Correct Procedure Yes -Procedure Performed Yes -Type of Procedure Debridement -Clinical Debridement Subcutaneous -Tissue Removed Subcutaneous -Post Debridement (cm) - Length 0.6 -Post Debridement (cm) - Width 0.8 -Post Debridement (cm) - Depth 0.1 -Total Square (Post) (cm) 0.48 -Area of Debridement (cm) - Length 0.6 -Area of Debridement (cm) - Width 0.8 -Total Square (Area) (cm) 0.48 -Tunneling No -Undermining/Tunneling No -Circular Undermining No -Wound/Ulcer Outcome Not Healed -Ulcer Cleansing Rinsed/ Irrigated with Saline -Foul Odor after Cleansing No -Bioengineered Tissue Yes -Type of Bioengineered Tissue Epifix 18mm Disc -Expiration Date 02/17/25 -Product Lot Number [id number] -Percent Used 100 -Saline Lot Number [id number] -Bleeding Controlled with Pressure -Offloading Yes -Type of Offloading Camwalker -Treatment Response Procedure Tolerated Well -Debridement - Subq, 1st 20sq cm No -Apply Skin Sub - 1st 25 sq cm - Feet 1 -Epifix 18mm Disc 3 Query Text:18mm = 3 [See Physician Procedure note for Specifics] Pain Scale: 0-10 Numeric [Pain] -Is Patient Pain Free? Yes - Nurse 3 - General Ulcer D/C NN Start: 05/20/20 11:12 Freq: Status: Active Protocol: Activity Type Activity Date Activity User E-Sign Co-Sign Detail Recorded Client Recorded Date Recorded By Document 06/03/20 11:12 [id number] 06/03/20 11:16 JF Document 06/04/20 12:34 MW [id number] 06/04/20 12:36 MW 06/03/20 06/04/20 11:12 12:34 Wound Care Nurse 3 [Wound Dressing] #10 right great toe plantar -Ulcer Cleansing Not Cleansed -Foul Odor after Cleansing No -Negative Pressure Wound Therapy N/A -Primary Dressing Covered/Secured Dry Gauze, with Secured with Tape [Compression Applied] Right -Lotion applied to leg before No compression wrap -Size of Tubigrip Used Size D -Size D ($) 1 [Post Procedure Tolerated] -Treatment Response Procedure Tolerated Well Pain Scale: 0-10 Numeric [Pain] -Is Patient Pain Free? Yes Yes Teaching: Wound Center [Wound Center Education] (Items with an * have Printed Materials Available- Please identify what is given to patient under the Teaching materials given to patient and caregiver Section. Dressing Your Wound -Person Taught Patient -Teaching Method Discussion, Demonstration -Response to teaching Verbalize understanding - Visit Discharge [Visit Discharge Information] -Discharge Condition Stable Stable -Ambulatory Status Ambulatory, Ambulatory, Walker Walker -Transportation Private Auto Private Auto -Accompanied by self -Medication Reconcilliation completed Yes No & provided to patient/care provider -Clinical Summary of Care Provided Yes Yes Musculoskeletal: No Tenderness to Palpation of Joints or Extremities, Muscle Wasting Neurological: - - Lack of epicritic sensation light touch is consistent with neuropathy status Psych/Mental Status: Normal Affect, Appropriate Debridement Note Post-Debridement Measurements/Treatment WC - Nurse 2 - General Ulcer CM Notes Start: 05/20/20 11:12 Freq: Status: Active Protocol: Activity Type Activity Date Activity User E-Sign Co-Sign Detail Recorded Client Recorded Date Recorded By Document 05/21/20 10:46 [id number] 05/21/20 10:49 Document 05/28/20 11:24 [id number] 05/28/20 11:25 Document 06/04/20 12:07 [id number] 06/04/20 12:08 05/21/20 05/28/20 06/04/20 10:46 11:24 12:07 Wound Center Nurse 2 #10 right great toe plantar -Time 10:47 11:24 12:07 -Correct Patient Yes Yes Yes -Correct Side, Site, Position Yes Yes Yes -Correct Procedure Yes Yes Yes -Procedure Performed Yes Yes Yes -Type of Procedure Debridement Debridement Debridement -Clinical Debridement Subcutaneous Subcutaneous Subcutaneous -Tissue Removed Subcutaneous Subcutaneous Subcutaneous -Post Debridement (cm) - Length 1.5 0.8 0.6 -Post Debridement (cm) - Width 1.7 0.8 0.8 -Post Debridement (cm) - Depth 0.3 0.2 0.1 -Total Square (Post) (cm) 2.55 0.64 0.48 -Area of Debridement (cm) - Length 1.5 0.8 0.6 -Area of Debridement (cm) - Width 1.7 0.8 0.8 -Total Square (Area) (cm) 2.55 0.64 0.48 -Tunneling No No No -Undermining/Tunneling No No No -Circular Undermining No No No -Wound/Ulcer Outcome Not Healed Not Healed Not Healed -Ulcer Cleansing Rinsed/ Rinsed/ Rinsed/ Irrigated with Irrigated with Irrigated with Saline Saline Saline -Foul Odor after Cleansing No No No -Bioengineered Tissue Yes Yes Yes -Type of Bioengineered Tissue Epifix 18mm Epifix 18mm Epifix 18mm Disc Disc Disc -Expiration Date 01/17/25 01/17/25 02/17/25 -Product Lot Number [id number] -Percent Used 100 100 100 -Saline Lot Number [id number] -Bleeding Controlled with Pressure Pressure Pressure -Offloading Yes Yes Yes -Type of Offloading Camwalker Camwalker Camwalker -Treatment Response Procedure Procedure Procedure Tolerated Well Tolerated Well Tolerated Well -Debridement - Subq, 1st 20sq cm No No No -Apply Skin Sub - 1st 25 sq cm - Feet 1 1 1 -Epifix 18mm Disc 3 3 3 Query Text:18mm = 3 Pain Scale: 0-10 Numeric Is Patient Pain Free? Yes - Nurse 3 - General Ulcer D/C NN Start: 05/20/20 11:12 Freq: Status: Active Protocol: Activity Type Activity Date Activity User E-Sign Co-Sign Detail Recorded Client Recorded Date Recorded By Document 05/20/20 11:13 [id number] 05/20/20 11:18 JF Document 05/21/20 11:04 RB [id number] 05/21/20 11:05 RB Document 05/23/20 10:36 JF [id number] 05/23/20 10:39 JF Document 05/27/20 12:18 JF [id number] 05/27/20 12:21 JF Document 05/28/20 11:46 MT [id number] 05/28/20 11:47 MT Document 06/03/20 11:12 [id number] 06/03/20 11:16 Document 06/04/20 12:34 MW [id number] 06/04/20 12:36 MW 05/20/20 05/21/20 05/23/20 11:13 11:04 10:36 Wound Care Nurse 3 #10 right great toe plantar -Ulcer Cleansing -Foul Odor after Cleansing -Negative Pressure Wound Therapy -Primary Dressing Covered/Secured with Dry Gauze,Dry Gauze & Roll Gauze,Secured with Tape Right -Lotion applied to leg before compression wrap -Tubular Bandage Single Layer -Size of Tubigrip Used Size D -Size C ($) -Size D ($) 1 -Stockings No Treatment Response Procedure Tolerated Well Pain Scale: 0-10 Numeric Is Patient Pain Free? Yes Yes Yes Teaching: Wound Center Dressing Your Wound -Person Taught -Teaching Method -Response to teaching - Visit Discharge Discharge Condition Stable Stable Stable Ambulatory Status Ambulatory, Ambulatory Ambulatory, Walker Walker Transportation Private Auto Private Auto Private Auto Accompanied by Medication Reconcilliation completed & Yes No Yes provided to patient/care provider Clinical Summary of Care Provided Yes Yes Yes Notes: stiven 05/27/20 05/28/20 06/03/20 12:18 11:46 11:12 Wound Care Nurse 3 #10 right great toe plantar -Ulcer Cleansing -Foul Odor after Cleansing -Negative Pressure Wound Therapy -Primary Dressing Covered/Secured with Dry Gauze, Secured with Tape Right -Lotion applied to leg before compression wrap -Tubular Bandage -Size of Tubigrip Used Size C -Size C ($) 1 -Size D ($) -Stockings Treatment Response Pain Scale: 0-10 Numeric Is Patient Pain Free? Yes Yes Teaching: Wound Center Dressing Your Wound -Person Taught -Teaching Method -Response to teaching WC - Visit Discharge Discharge Condition Stable Stable Stable Ambulatory Status Ambulatory, Walker Ambulatory, Walker Walker Transportation Private Auto Private Auto Private Auto Accompanied by Medication Reconcilliation completed & Yes No Yes provided to patient/care provider Clinical Summary of Care Provided Yes Yes Yes Notes: 06/04/20 12:34 Wound Care Nurse 3 #10 right great toe plantar -Ulcer Cleansing Not Cleansed -Foul Odor after Cleansing No -Negative Pressure Wound Therapy N/A -Primary Dressing Covered/Secured with Dry Gauze, Secured with Tape Right -Lotion applied to leg before No compression wrap -Tubular Bandage -Size of Tubigrip Used Size D -Size C ($) -Size D ($) 1 -Stockings Treatment Response Procedure Tolerated Well Pain Scale: 0-10 Numeric Is Patient Pain Free? Yes Teaching: Wound Center Dressing Your Wound -Person Taught Patient -Teaching Method Discussion, Demonstration -Response to teaching Verbalize understanding WC - Visit Discharge Discharge Condition Stable Ambulatory Status Ambulatory, Walker Transportation Private Auto Accompanied by self Medication Reconcilliation completed & No provided to patient/care provider Clinical Summary of Care Provided Yes Notes: Wound debrided: plantar hallux Laterality: Right Wound Grade/Stage: grade 3 Type of Debridement: Excisional debridement Anesthesia Used: 5% Lidocaine Gel Depth: in the subcutaneous layer Percentage of wound debrided: 100 Instrument Used: #15 blade Tissue Removed: fibrous, devitalized subcutaneous, biofilm, slough Severity: Fat Layer Exposed Amount of bleeding with debridement: Mild Bleeding Controlled with: Pressure Patient tolerated procedure well Assessment/Plan Active Problems Osteomyelitis (Chronic) 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 Ulcer right hallux bone layer exposed (peter grade 3). osteomyelitis distal phalanx of hallux. Cellulitis and osteomyelitis right foot addressed with oral antibiotics. Hallux limitus Plan: I reviewed and discussed his case. The ulcer was debrided today as noted in the clinical panel. Advanced wound healing product epi-fix was recommended and this was applied after verbal consent was obtained today. This was applied according standard protocol and he tolerated this well. This epi-fix was also secured in place with a wound veil and Steri-Strips. A secondary dressing was reapplied. He was advised to keep this clean, dry, and intact until follow-up next week. I recommend this because he is high risk for continued amputation, infection, loss of limb and life due to his recurrent infections and tissue loss. This is medically necessary. His diagnostic data was reviewed and he did not have leukocytosis. His sedimentation rate was 44. His hemoglobin A1c was recently checked and was over 11%. He is undergoing medical management to help him decrease this. He is making lifestyle changes and is working less. His toe x-ray did not demonstrate any acute fracture dislocation or soft tissue emphysema or foreign body. His recent ankle x-ray did not demonstrate any fracture, dislocation, radiographic evidence of Charcot, soft tissue emphysema or foreign body. Significant small vessel calcification is seen. Subsequent MRI of the foot did confirm acute osteomyelitis of the distal phalanx of the hallux. He was advised to heel weight in the surgical shoe as recommended; he already has this. To avoid driving or any activity that continues to place pressure on this ulcer site. He relates he will repetitively uses his forefoot for driving and he also often places his foot next to a heater. I recommended offloading this more aggressively with a cam walker boot with dual density offloading Plastizote liners. He did get fitted for this at the foot [facility] ankle center and understands proper use. His dressing is continually soiled and compliance was reviewed again today. I also recommend nutritional supplementation and a prescription for Tripp was provided. To improve glucose management. We discussed adequate protein intake and I answered his questions. To continue with improved nutrition to improve wellbeing and glycemic control. He is scheduled to see a production laborer. His microbiology reports were reviewed and it appears he has multi-organism growth. To continue on Augmentin and levofloxacin. He was seen by infectious disease as well. We discussed wound care and antibiotics first with the addition of hyperbaric oxygen versus amputation including the indications and treatment options. The indications, benefits, anticipated course and management of hyperbaric oxygen therapy was discussed. He had an EF of about 45%. He is scheduled at this time and his prescription for continued session was updated by Shoshana Medina, clinical nurse practitioner. He understands he is at continued risk of limb loss and his success is compromised by his medical instability. I also recommend updating his noninvasive vascular studies and this has been scheduled. He had abnormal findings with calcification and noncompressible vessels. Given his recent rapid gangrenous finding a tissue loss I recommend a vascular surgery referral. A referral was provided see Dr. Olvera and input will be greatly appreciated.This was scheduled and he was advised to follow-up to aid in faster recovery at this time and to prevent future recurrence. I answered all his questions. To follow-up with the wound healing center in 1 week.
[2020-06-05 12:05] LABS: Bedside Glucose 187 mg/dL (70-110)
[2020-06-05 13:07] VITALS: BP 135/87; BP 149/72; PULSE 90; PULSE 92; RESP 16; RESP 18; TEMP 36; TEMP 36.6
--- NOTE | 2020-06-05 14:41 | PCM.HBO.PN ---
History of Present Illness Date of Service: 06/05/20 Presenting Chief Complaint: Chronic right great toe ulceration with necrosis of bone/osteomyelitis?Peter grade 3 OLY SMITH is a 59 year old currently undergoing hyperbaric oxygen therapy for Peter grade 3 ulceration of the right great toe with osteomyelitis. Progress: Today's hyperbaric oxygen therapy session represents the 26th such session of an anticipated 60 such treatments. Tolerance of hyperbaric oxygen therapy: Hyperbaric oxygen therapy was administered as per the facility's protocol. Hyperbaric oxygen therapy was administered at 2 lisa and 100% oxygen for 90 minutes, with no air breaks. Hyperbaric oxygen therapy was tolerated well, without complaints or complications. Upon emergence from the hyperbaric chamber, the patient's vital signs remained stable. Pre-treatment blood glucose was 187 and post-treatment blood glucose was 156. The patient was discharged in good condition. 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) Type 2 diabetes mellitus with diabetic polyneuropathy (Chronic) Type 2 diabetes mellitus with diabetic polyneuropathy (Chronic) Cellulitis of right foot (Chronic) Type 1 diabetes mellitus (Chronic) Malnutrition (Chronic) Delayed wound healing (Chronic) PVD (peripheral vascular disease) (Chronic) Ulcer of right foot with necrosis of muscle (Chronic) Hammer toe of right foot (Chronic) Ulcer of right foot with fat layer exposed (Chronic) Non-pressure chronic ulcer of right heel and midfoot with bone involvement without evidence of necrosis (Chronic) Diabetic ulcer of right foot (Chronic) Type 2 diabetes mellitus with diabetic polyneuropathy (Chronic) Diabetes mellitus type II, uncontrolled (Chronic) Obesity (BMI 30-39.9) (Chronic) Tobacco use (Chronic) Allergies/Adverse Reactions: Allergies No Known Allergies Allergy (Verified 02/27/20 12:53) Home Medications: Ambulatory Orders Medication Instructions Recorded Insulin Aspart [Novolog Flexpen 25 units SUBCUT TIDCM 02/27/20 ([facility])] Semaglutide [Ozempic] 0.25 mg SQ QWEEK 05/20/20 Insulin Degludec [Tresiba] 80 unit SQ BID 05/28/20 Maternal Family History: - - Other with a history of colon cancer, metastatic. Paternal Family History: - - Father with a history of prostate cancer. Smoking Status: Never smoker Tobacco Use: Non-smoker Alcohol: None Drugs: None Physical Exam Vital Signs Temp Pulse Resp BP 98 F 92 18 149/72 H 06/05/20 13:07 06/05/20 13:07 06/05/20 13:07 06/05/20 13:07 General: Alert, Oriented x3, Cooperative, No apparent distress HEENT: Atraumatic, PERRLA, TM's Clear Lungs: Clear to auscultation, Normal air movement Cardiovascular: Regular rate, Regular Rhythm, Normal S1, Normal S2 Psych/Mental Status: Normal Affect, Appropriate, Alert and oriented to time, place, person, mood and affect Assessment/Plan Active Problems Osteomyelitis (Chronic) Chronic ulcer of right foot with necrosis of bone (Chronic) Type 2 diabetes mellitus with diabetic polyneuropathy (Chronic) Diabetic foot ulcer associated with diabetes mellitus due to underlying condition (Acute) Malnutrition (Chronic) Delayed wound healing (Chronic) PVD (peripheral vascular disease) (Chronic) Diabetes mellitus type II, uncontrolled (Chronic) Treatment Course Number Number of HBO Treatments 60 Ordered Treatment Course Number 1 Treatment # 26 Chamber # [id number] Chamber Type Monoplace HBO Diagnosis/Indication Diagnosis/Indication(s) for Right Diabetic Foot Ulcer Hyperbaric Therapy Classification - Peter Grade 3 Grading (Diabetic Ulcer) Diabetes - Detail Diabetes Diabetes Type II Right Extremity Ulcer, Heel & Midfoot Treatment Plan VALERIO (Atmospheric Absolute) 2 Number of Minutes 90 Number of Air Breaks 0 The patient appears to be tolerating hyperbaric oxygen therapy well, which will be continued as per the patient's medical plan.
[2020-06-05 14:45] LABS: Bedside Glucose 156 mg/dL (70-110)
[2020-06-06 08:06] LABS: Bedside Glucose 144 mg/dL (70-110)
[2020-06-06 10:40] LABS: Bedside Glucose 201 mg/dL (70-110)
[2020-06-06 11:02] VITALS: BP 125/71; BP 131/77; PULSE 85; PULSE 87; RESP 16; TEMP 36.1; TEMP 36.5
--- NOTE | 2020-06-06 16:50 | PCM.HBO.PN ---
History of Present Illness Date of Service: 06/06/20 Presenting Chief Complaint: Chronic right great toe ulceration with necrosis of bone/osteomyelitis?Peter grade 3 OLY SMITH is a 59 year old currently undergoing hyperbaric oxygen therapy for Peter grade 3 ulceration of the right great toe with osteomyelitis. Progress: Today's hyperbaric oxygen therapy session represents the 27th such session of an anticipated 60 such treatments. Tolerance of hyperbaric oxygen therapy: Hyperbaric oxygen therapy was administered as per the facility's protocol. Hyperbaric oxygen therapy was administered at 2 lisa and 100% oxygen for 90 minutes, with no air breaks. Hyperbaric oxygen therapy was tolerated well, without complaints or complications. Upon emergence from the hyperbaric chamber, the patient's vital signs remained stable. Pre-treatment blood glucose as noted in clinical panel. The patient was discharged in good condition. 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) Type 2 diabetes mellitus with diabetic polyneuropathy (Chronic) Type 2 diabetes mellitus with diabetic polyneuropathy (Chronic) Cellulitis of right foot (Chronic) Type 1 diabetes mellitus (Chronic) Malnutrition (Chronic) Delayed wound healing (Chronic) PVD (peripheral vascular disease) (Chronic) Ulcer of right foot with necrosis of muscle (Chronic) Hammer toe of right foot (Chronic) Ulcer of right foot with fat layer exposed (Chronic) Non-pressure chronic ulcer of right heel and midfoot with bone involvement without evidence of necrosis (Chronic) Diabetic ulcer of right foot (Chronic) Type 2 diabetes mellitus with diabetic polyneuropathy (Chronic) Diabetes mellitus type II, uncontrolled (Chronic) Obesity (BMI 30-39.9) (Chronic) Tobacco use (Chronic) Allergies/Adverse Reactions: Allergies No Known Allergies Allergy (Verified 02/27/20 12:53) Home Medications: Ambulatory Orders Medication Instructions Recorded Insulin Aspart [Novolog Flexpen 25 units SUBCUT TIDCM 02/27/20 ([facility])] Semaglutide [Ozempic] 0.25 mg SQ QWEEK 05/20/20 Insulin Degludec [Tresiba] 80 unit SQ BID 05/28/20 Maternal Family History: - - Other with a history of colon cancer, metastatic. Paternal Family History: - - Father with a history of prostate cancer. Smoking Status: Never smoker Tobacco Use: Non-smoker Alcohol: None Drugs: None Physical Exam Vital Signs Temp Pulse Resp BP 97.7 F L 87 16 131/77 H 06/06/20 11:02 06/06/20 11:02 06/06/20 11:02 06/06/20 11:02 General: Alert, Oriented x3, Cooperative, No apparent distress Psych/Mental Status: Normal Affect, Appropriate Assessment/Plan Active Problems Osteomyelitis (Chronic) Chronic ulcer of right foot with necrosis of bone (Chronic) Type 2 diabetes mellitus with diabetic polyneuropathy (Chronic) Diabetic foot ulcer associated with diabetes mellitus due to underlying condition (Acute) Malnutrition (Chronic) Delayed wound healing (Chronic) PVD (peripheral vascular disease) (Chronic) Diabetes mellitus type II, uncontrolled (Chronic) The patient appears to be tolerating hyperbaric oxygen therapy well, which will be continued as per the patient's medical plan. Treatment Course Number Number of HBO Treatments 60 Ordered Treatment Course Number 1 Treatment # 27 Chamber # 1 Chamber Type Monoplace HBO Diagnosis/Indication Diagnosis/Indication(s) for Right Diabetic Foot Ulcer Hyperbaric Therapy Classification - Peter Grade 3 Grading (Diabetic Ulcer) Diabetes - Detail Diabetes Diabetes Type II Right Extremity Ulcer, Heel & Midfoot Treatment Plan VALERIO (Atmospheric Absolute) 2 Number of Minutes 90 Number of Air Breaks 0
[2020-06-09 08:06] LABS: Bedside Glucose 161 mg/dL (70-110)
--- NOTE | 2020-06-09 08:31 | PCM.HBO.PN ---
History of Present Illness Date of Service: 06/09/20 Presenting Chief Complaint: Chronic right great toe ulceration with necrosis of bone/osteomyelitis?Peter grade 3 OLY SMITH is a 59 year old currently undergoing hyperbaric oxygen therapy for Peter grade 3 ulceration of the right great toe with osteomyelitis. Progress: Today's hyperbaric oxygen therapy session represents the 28th such session of an anticipated 60 such treatments. Tolerance of hyperbaric oxygen therapy: Hyperbaric oxygen therapy was administered as per the facility's protocol. Hyperbaric oxygen therapy was administered at 2 lisa and 100% oxygen for 90 minutes, with no air breaks. Hyperbaric oxygen therapy was tolerated well, without complaints or complications. Upon emergence from the hyperbaric chamber, the patient's vital signs remained stable. Pre-treatment blood glucose as noted in clinical panel. The patient was discharged in good condition. 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) Type 2 diabetes mellitus with diabetic polyneuropathy (Chronic) Type 2 diabetes mellitus with diabetic polyneuropathy (Chronic) Cellulitis of right foot (Chronic) Type 1 diabetes mellitus (Chronic) Malnutrition (Chronic) Delayed wound healing (Chronic) PVD (peripheral vascular disease) (Chronic) Ulcer of right foot with necrosis of muscle (Chronic) Hammer toe of right foot (Chronic) Ulcer of right foot with fat layer exposed (Chronic) Non-pressure chronic ulcer of right heel and midfoot with bone involvement without evidence of necrosis (Chronic) Diabetic ulcer of right foot (Chronic) Type 2 diabetes mellitus with diabetic polyneuropathy (Chronic) Diabetes mellitus type II, uncontrolled (Chronic) Obesity (BMI 30-39.9) (Chronic) Tobacco use (Chronic) Allergies/Adverse Reactions: Allergies No Known Allergies Allergy (Verified 02/27/20 12:53) Home Medications: Ambulatory Orders Medication Instructions Recorded Insulin Aspart [Novolog Flexpen 25 units SUBCUT TIDCM 02/27/20 ([facility])] Semaglutide [Ozempic] 0.25 mg SQ QWEEK 05/20/20 Insulin Degludec [Tresiba] 80 unit SQ BID 05/28/20 Maternal Family History: - - Other with a history of colon cancer, metastatic. Paternal Family History: - - Father with a history of prostate cancer. 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) Type 2 diabetes mellitus with diabetic polyneuropathy (Chronic) Diabetic foot ulcer associated with diabetes mellitus due to underlying condition (Acute) Malnutrition (Chronic) Delayed wound healing (Chronic) PVD (peripheral vascular disease) (Chronic) Diabetes mellitus type II, uncontrolled (Chronic) Treatment Course Number Number of HBO Treatments 60 Ordered Treatment Course Number 1 Treatment # 28 Chamber # 1 Chamber Type Monoplace HBO Diagnosis/Indication Diagnosis/Indication(s) for Right Diabetic Foot Ulcer Hyperbaric Therapy Classification - Peter Grade 3 Grading (Diabetic Ulcer) Diabetes - Detail Diabetes Diabetes Type II Right Extremity Ulcer, Heel & Midfoot Treatment Plan VALERIO (Atmospheric Absolute) 2 Number of Minutes 90 Number of Air Breaks 0
[2020-06-09 08:47] VITALS: BP 143/77; BP 162/107; PULSE 91; PULSE 93; RESP 16; TEMP 36.1
[2020-06-09 10:26] LABS: Bedside Glucose 156 mg/dL (70-110)
[2020-06-10 08:10] LABS: Bedside Glucose 120 mg/dL (70-110)
[2020-06-10 08:35] LABS: Bedside Glucose 161 mg/dL (70-110)
[2020-06-10 10:26] LABS: Bedside Glucose 166 mg/dL (70-110)
[2020-06-10 11:26] VITALS: BP 152/91; BP 169/96; PULSE 85; PULSE 91; RESP 16; TEMP 36.2; TEMP 36.6
--- NOTE | 2020-06-10 12:18 | HBO.PN.PCM_ITS ---
History of Present Illness Date of Service: 06/10/20 Presenting Chief Complaint: Chronic right great toe ulceration with necrosis of bone/osteomyelitis?Peter grade 3 OLY SMITH is a 59 year old currently undergoing hyperbaric oxygen therapy for Peter grade 3 ulceration of the right great toe with osteomyelitis. Progress: Today's hyperbaric oxygen therapy session represents the 29th such session of an anticipated 60 such treatments. Tolerance of hyperbaric oxygen therapy: Hyperbaric oxygen therapy was administered as per the facility's protocol. Hyperbaric oxygen therapy was administered at 2 lisa and 100% oxygen for 90 minutes, with no air breaks. Hyperbaric oxygen therapy was tolerated well, without complaints or complications. Upon emergence from the hyperbaric chamber, the patient's vital signs remained stable. Pre- and post- treatment blood glucose as noted in clinical panel. The patient was discharged in good condition. 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) Type 2 diabetes mellitus with diabetic polyneuropathy (Chronic) Type 2 diabetes mellitus with diabetic polyneuropathy (Chronic) Cellulitis of right foot (Chronic) Type 1 diabetes mellitus (Chronic) Malnutrition (Chronic) Delayed wound healing (Chronic) PVD (peripheral vascular disease) (Chronic) Ulcer of right foot with necrosis of muscle (Chronic) Hammer toe of right foot (Chronic) Ulcer of right foot with fat layer exposed (Chronic) Non-pressure chronic ulcer of right heel and midfoot with bone involvement without evidence of necrosis (Chronic) Diabetic ulcer of right foot (Chronic) Type 2 diabetes mellitus with diabetic polyneuropathy (Chronic) Diabetes mellitus type II, uncontrolled (Chronic) Obesity (BMI 30-39.9) (Chronic) Tobacco use (Chronic) Allergies/Adverse Reactions: Allergies No Known Allergies Allergy (Verified 02/27/20 12:53) Home Medications: Ambulatory Orders Medication Instructions Recorded Insulin Aspart [Novolog Flexpen 25 units SUBCUT TIDCM 02/27/20 ([facility])] Semaglutide [Ozempic] 0.25 mg SQ QWEEK 05/20/20 Insulin Degludec [Tresiba] 80 unit SQ BID 05/28/20 Maternal Family History: - - Other with a history of colon cancer, metastatic. Paternal Family History: - - Father with a history of prostate cancer. 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 Treatment Course Number Number of HBO Treatments 60 Ordered Treatment Course Number 1 Treatment # 29 Chamber # 1 Chamber Type Monoplace HBO Diagnosis/Indication Diagnosis/Indication(s) for Right Diabetic Foot Ulcer Hyperbaric Therapy Classification - Peter Grade 3 Grading (Diabetic Ulcer) Diabetes - Detail Diabetes Diabetes Type II Right Extremity Ulcer, Heel & Midfoot Treatment Plan VALERIO (Atmospheric Absolute) 2 Number of Minutes 90 Number of Air Breaks 0
[2020-06-11 10:01] LABS: Bedside Glucose 149 mg/dL (70-110)
[2020-06-11 10:16] LABS: Bedside Glucose 168 mg/dL (70-110)
[2020-06-11 10:25] VITALS: BP 132/92; PULSE 87; RESP 16; TEMP 36.4; BMI 39.9
--- NOTE | 2020-06-11 11:42 | PN.PCM_ITS ---
(1) Osteomyelitis Status: Chronic Current Visit: Yes Qualifiers: Laterality: right Code(s): M86.9 - Osteomyelitis, unspecified (2) Chronic ulcer of right foot with necrosis of bone Status: Chronic Current Visit: Yes Code(s): L97.514 - Non-pressure chronic ulcer of other part of right foot with necrosis of bone (3) Type 2 diabetes mellitus with diabetic polyneuropathy Status: Chronic Current Visit: Yes Qualifiers: Code(s): E11.42 - Type 2 diabetes mellitus with diabetic polyneuropathy (4) Delayed wound healing Status: Chronic Current Visit: Yes Code(s): T14.8XXD - Other injury of unspecified body region, subsequent encounter (5) PVD (peripheral vascular disease) Status: Chronic Current Visit: Yes Code(s): I73.9 - Peripheral vascular disease, unspecified Type of Wound Date of Service: 06/11/20 Chief Complaint: Chronic right great toe ulceration with necrosis of bone/osteomyelitis?Peter grade 3 History of Wound: 59-year-old white male with diabetes and other comorbidities was seen today for right foot ulcer. He has completed his 6-week oral antibiotic course under the management of infectious disease without reported side effects. He has a Peter grade 3 ulcer and has also been diagnosed with acute osteomyelitis clinically and with MRI and clinical evaluation. He denies fever, chill, nausea, vomiting, diarrhea or other side effects since he started on antibiotics. He has been undergoing hyperbaric oxygen therapy treatment. Progress of Wound: Improving. - Physical Exam Vital Signs Temp Pulse Resp BP 97.6 F L 87 16 132/92 H 06/11/20 10:25 06/11/20 10:25 06/11/20 10:25 06/11/20 10:25 General: Alert, Oriented x3, Cooperative, No apparent distress HEENT: Atraumatic Extremities: No cyanosis, Capillary Refill Less than 3 Seconds, No Calf Tenderness, Diminished Peripheral Pulses, Edema Skin: Ulcer/ Wound - no purulence, erythema, streaking, odor, infection. No deep tissue exposure noted, no necrosis or maceration. His adjacent skin is hairless and atrophic., - Wound Measurements and Assessment WC - Nurse 1 - General Ulcer Measurement Start: 05/20/20 11:12 Freq: Status: Active Protocol: Activity Type Activity Date Activity User E-Sign Co-Sign Detail Recorded Client Recorded Date Recorded By Document 06/11/20 10:25 [id number] 06/11/20 10:34 CS 06/11/20 10:25 Wound Center Nurse 1 [Ulcer Assessment] #10 right great toe plantar -Combined with other wound No -Current Size (cm) - Length 0.4 -Current Size (cm) - Width 0.5 -Current Size (cm) - Depth 0.2 -Total Square Cm 0.20 -Photo Taken No -Epithelialization Small 1-33% -Tunneling No -Undermining/Tunneling No -Circular Undermining No -Exudate Amt Small -Exudate Type Serosanguineous -Wound Margin Distinct, Outline Attached -Granulation Amt Large (67-100%) -Granulation Quality Red -Slough/Fibrin Yes -Necrosis Amt None Present (0 %) -Necrotic Tissue Type Adherent Slough -Structure Exposed N/A -Texture (Belle-wound Skin Appearance) Callus -Moisture (Belle-wound Skin Appearance Dry/Scaly ) -Color (Belle-wound Skin Appearance) No Abnormality, Assessed -Temperature (Belle-wound Skin No Abnormality Appearance) (Pt Warm) -Tenderness on Palpation (Belle-wound No Skin Appearance) -Ulcer Cleansing Rinsed/ Irrigated with Saline -Foul Odor after Cleansing No -Anesthetic Used 4% Lidocaine Solution [Edema Assessment] -Lower Limb Edema Present NA - Nurse 2 - General Ulcer CM Notes Start: 05/20/20 11:12 Freq: Status: Active Protocol: Activity Type Activity Date Activity User E-Sign Co-Sign Detail Recorded Client Recorded Date Recorded By Document 06/11/20 10:56 [id number] 06/11/20 10:58 06/11/20 10:56 Wound Center Nurse 2 [Procedure/Treatment] #10 right great toe plantar -Time 10:57 -Correct Patient Yes -Correct Side, Site, Position Yes -Correct Procedure Yes -Procedure Performed Yes -Type of Procedure Debridement -Clinical Debridement Subcutaneous -Tissue Removed Subcutaneous -Post Debridement (cm) - Length 0.4 -Post Debridement (cm) - Width 0.5 -Post Debridement (cm) - Depth 0.2 -Total Square (Post) (cm) 0.20 -Area of Debridement (cm) - Length 0.4 -Area of Debridement (cm) - Width 0.5 -Total Square (Area) (cm) 0.20 -Tunneling No -Undermining/Tunneling No -Circular Undermining No -Wound/Ulcer Outcome Not Healed -Ulcer Cleansing Rinsed/ Irrigated with Saline -Foul Odor after Cleansing No -Bioengineered Tissue No -Bleeding Controlled with Pressure -Offloading Yes -Type of Offloading Camwalker -Treatment Response Procedure Tolerated Well -Debridement - Subq, 1st 20sq cm Yes [See Physician Procedure note for Specifics] Pain Scale: 0-10 Numeric [Pain] -Is Patient Pain Free? Yes - Nurse 3 - General Ulcer D/C NN Start: 05/20/20 11:12 Freq: Status: Active Protocol: Activity Type Activity Date Activity User E-Sign Co-Sign Detail Recorded Client Recorded Date Recorded By Document 06/10/20 11:26 [id number] 06/10/20 11:36 Document 06/11/20 11:12 [id number] 06/11/20 11:13 06/10/20 06/11/20 11:26 11:12 Wound Care Nurse 3 [Wound Dressing] #10 right great toe plantar -Ulcer Cleansing Not Cleansed -Foul Odor after Cleansing No -Negative Pressure Wound Therapy N/A -Primary Dressing Applied Aquacel AG 4x4 -Primary Dressing Covered/Secured Dry Gauze & with Roll Gauze, Other -Other Covering 0 -Aquacel AG 4x4 1 [Compression Applied] Right -Tubular Bandage Single Layer -Size of Tubigrip Used Size D -Size D ($) 1 -Is Patient Pain Free? Yes - Visit Discharge [Visit Discharge Information] -Discharge Condition Stable Stable -Ambulatory Status Ambulatory, Ambulatory Walker -Transportation Private Auto Private Auto -Accompanied by self -Medication Reconcilliation completed Yes Yes & provided to patient/care provider -Clinical Summary of Care Provided Yes Yes Musculoskeletal: No Tenderness to Palpation of Joints or Extremities, Muscle Wasting Neurological: - - Lack of epicritic sensation to light touch is consistent with neuropathy status Psych/Mental Status: Normal Affect, Appropriate Debridement Note Post-Debridement Measurements/Treatment - Nurse 2 - General Ulcer CM Notes Start: 05/20/20 11:12 Freq: Status: Active Protocol: Activity Type Activity Date Activity User E-Sign Co-Sign Detail Recorded Client Recorded Date Recorded By Document 05/21/20 10:46 [id number] 05/21/20 10:49 Document 05/28/20 11:24 [id number] 05/28/20 11:25 Document 06/04/20 12:07 [id number] 06/04/20 12:08 Document 06/11/20 10:56 [id number] 06/11/20 10:58 05/21/20 05/28/20 06/04/20 10:46 11:24 12:07 Wound Center Nurse 2 #10 right great toe plantar -Time 10:47 11:24 12:07 -Correct Patient Yes Yes Yes -Correct Side, Site, Position Yes Yes Yes -Correct Procedure Yes Yes Yes -Procedure Performed Yes Yes Yes -Type of Procedure Debridement Debridement Debridement -Clinical Debridement Subcutaneous Subcutaneous Subcutaneous -Tissue Removed Subcutaneous Subcutaneous Subcutaneous -Post Debridement (cm) - Length 1.5 0.8 0.6 -Post Debridement (cm) - Width 1.7 0.8 0.8 -Post Debridement (cm) - Depth 0.3 0.2 0.1 -Total Square (Post) (cm) 2.55 0.64 0.48 -Area of Debridement (cm) - Length 1.5 0.8 0.6 -Area of Debridement (cm) - Width 1.7 0.8 0.8 -Total Square (Area) (cm) 2.55 0.64 0.48 -Tunneling No No No -Undermining/Tunneling No No No -Circular Undermining No No No -Wound/Ulcer Outcome Not Healed Not Healed Not Healed -Ulcer Cleansing Rinsed/ Rinsed/ Rinsed/ Irrigated with Irrigated with Irrigated with Saline Saline Saline -Foul Odor after Cleansing No No No -Bioengineered Tissue Yes Yes Yes -Type of Bioengineered Tissue Epifix 18mm Epifix 18mm Epifix 18mm Disc Disc Disc -Expiration Date 01/17/25 01/17/25 02/17/25 -Product Lot Number [id number] -Percent Used 100 100 100 -Saline Lot Number [id number] -Bleeding Controlled with Pressure Pressure Pressure -Offloading Yes Yes Yes -Type of Offloading Camwalker Camwalker Camwalker -Treatment Response Procedure Procedure Procedure Tolerated Well Tolerated Well Tolerated Well -Debridement - Subq, 1st 20sq cm No No No -Apply Skin Sub - 1st 25 sq cm - Feet 1 1 1 -Epifix 18mm Disc 3 3 3 Pain Scale: 0-10 Numeric Is Patient Pain Free? Yes 06/11/20 10:56 Wound Center Nurse 2 #10 right great toe plantar -Time 10:57 -Correct Patient Yes -Correct Side, Site, Position Yes -Correct Procedure Yes -Procedure Performed Yes -Type of Procedure Debridement -Clinical Debridement Subcutaneous -Tissue Removed Subcutaneous -Post Debridement (cm) - Length 0.4 -Post Debridement (cm) - Width 0.5 -Post Debridement (cm) - Depth 0.2 -Total Square (Post) (cm) 0.20 -Area of Debridement (cm) - Length 0.4 -Area of Debridement (cm) - Width 0.5 -Total Square (Area) (cm) 0.20 -Tunneling No -Undermining/Tunneling No -Circular Undermining No -Wound/Ulcer Outcome Not Healed -Ulcer Cleansing Rinsed/ Irrigated with Saline -Foul Odor after Cleansing No -Bioengineered Tissue No -Type of Bioengineered Tissue -Expiration Date -Product Lot Number -Percent Used -Saline Lot Number -Bleeding Controlled with Pressure -Offloading Yes -Type of Offloading Camwalker -Treatment Response Procedure Tolerated Well -Debridement - Subq, 1st 20sq cm Yes -Apply Skin Sub - 1st 25 sq cm - Feet -Epifix 18mm Disc Pain Scale: 0-10 Numeric Is Patient Pain Free? Yes - Nurse 3 - General Ulcer D/C NN Start: 05/20/20 11:12 Freq: Status: Active Protocol: Activity Type Activity Date Activity User E-Sign Co-Sign Detail Recorded Client Recorded Date Recorded By Document 05/20/20 11:13 [id number] 05/20/20 11:18 JF Document 05/21/20 11:04 RB [id number] 05/21/20 11:05 RB Document 05/23/20 10:36 JF [id number] 05/23/20 10:39 JF Document 05/27/20 12:18 JF [id number] 05/27/20 12:21 JF Document 05/28/20 11:46 MT [id number] 05/28/20 11:47 MT Document 06/03/20 11:12 JF [id number] 06/03/20 11:16 JF Document 06/04/20 12:34 [id number] 06/04/20 12:36 MW Document 06/06/20 11:02 JF [id number] 06/06/20 11:08 JF Document 06/10/20 11:26 JF [id number] 06/10/20 11:36 JF Document 06/11/20 11:12 CS [id number] 06/11/20 11:13 CS 05/20/20 05/21/20 05/23/20 11:13 11:04 10:36 Wound Care Nurse 3 #10 right great toe plantar -Ulcer Cleansing -Foul Odor after Cleansing -Negative Pressure Wound Therapy -Primary Dressing Applied -Primary Dressing Covered/Secured with Dry Gauze,Dry Gauze & Roll Gauze,Secured with Tape -Other Covering -Aquacel AG 4x4 Right -Lotion applied to leg before compression wrap -Tubular Bandage Single Layer -Size of Tubigrip Used Size D -Size C ($) -Size D ($) 1 -Stockings No Treatment Response Procedure Tolerated Well Pain Scale: 0-10 Numeric Is Patient Pain Free? Yes Yes Yes Teaching: Wound Center Dressing Your Wound -Person Taught -Teaching Method -Response to teaching WC - Visit Discharge Discharge Condition Stable Stable Stable Ambulatory Status Ambulatory, Ambulatory Ambulatory, Walker Walker Transportation Private Auto Private Auto Private Auto Accompanied by Medication Reconcilliation completed & Yes No Yes provided to patient/care provider Clinical Summary of Care Provided Yes Yes Yes Notes: stiven 05/27/20 05/28/20 06/03/20 12:18 11:46 11:12 Wound Care Nurse 3 #10 right great toe plantar -Ulcer Cleansing -Foul Odor after Cleansing -Negative Pressure Wound Therapy -Primary Dressing Applied -Primary Dressing Covered/Secured with Dry Gauze, Secured with Tape -Other Covering -Aquacel AG 4x4 Right -Lotion applied to leg before compression wrap -Tubular Bandage -Size of Tubigrip Used Size C -Size C ($) 1 -Size D ($) -Stockings Treatment Response Pain Scale: 0-10 Numeric Is Patient Pain Free? Yes Yes Teaching: Wound Center Dressing Your Wound -Person Taught -Teaching Method -Response to teaching WC - Visit Discharge Discharge Condition Stable Stable Stable Ambulatory Status Ambulatory, Walker Ambulatory, Walker Walker Transportation Private Auto Private Auto Private Auto Accompanied by Medication Reconcilliation completed & Yes No Yes provided to patient/care provider Clinical Summary of Care Provided Yes Yes Yes Notes: 06/04/20 06/06/20 06/10/20 12:34 11:02 11:26 Wound Care Nurse 3 #10 right great toe plantar -Ulcer Cleansing Not Cleansed -Foul Odor after Cleansing No -Negative Pressure Wound Therapy N/A -Primary Dressing Applied -Primary Dressing Covered/Secured with Dry Gauze, Secured with Tape -Other Covering -Aquacel AG 4x4 Right -Lotion applied to leg before No compression wrap -Tubular Bandage -Size of Tubigrip Used Size D -Size C ($) -Size D ($) 1 -Stockings Treatment Response Procedure Tolerated Well Pain Scale: 0-10 Numeric Is Patient Pain Free? Yes Yes Yes Teaching: Wound Center Dressing Your Wound -Person Taught Patient -Teaching Method Discussion, Demonstration -Response to teaching Verbalize understanding WC - Visit Discharge Discharge Condition Stable Stable Stable Ambulatory Status Ambulatory, Ambulatory, Ambulatory, Walker Walker Walker Transportation Private Auto Private Auto Private Auto Accompanied by self Medication Reconcilliation completed & No Yes Yes provided to patient/care provider Clinical Summary of Care Provided Yes Yes Yes Notes: 06/11/20 11:12 Wound Care Nurse 3 #10 right great toe plantar -Ulcer Cleansing Not Cleansed -Foul Odor after Cleansing No -Negative Pressure Wound Therapy N/A -Primary Dressing Applied Aquacel AG 4x4 -Primary Dressing Covered/Secured with Dry Gauze & Roll Gauze, Other -Other Covering 0 -Aquacel AG 4x4 1 Right -Lotion applied to leg before compression wrap -Tubular Bandage Single Layer -Size of Tubigrip Used Size D -Size C ($) -Size D ($) 1 -Stockings Treatment Response Pain Scale: 0-10 Numeric Is Patient Pain Free? Teaching: Wound Center Dressing Your Wound -Person Taught -Teaching Method -Response to teaching WC - Visit Discharge Discharge Condition Stable Ambulatory Status Ambulatory Transportation Private Auto Accompanied by self Medication Reconcilliation completed & Yes provided to patient/care provider Clinical Summary of Care Provided Yes Notes: Wound debrided: plantar hallux Laterality: Right Wound Grade/Stage: grade 3 Type of Debridement: Excisional debridement Anesthesia Used: 5% Lidocaine Gel Depth: in the subcutaneous layer Percentage of wound debrided: 100 Instrument Used: #15 blade Tissue Removed: fibrous, devitalized subcutaneous, biofilm, slough Severity: Fat Layer Exposed Amount of bleeding with debridement: Mild Bleeding Controlled with: Pressure Patient tolerated procedure well Assessment/Plan Active Problems Osteomyelitis (Chronic) 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 Ulcer right hallux bone layer exposed (peter grade 3). osteomyelitis distal phalanx of hallux. Cellulitis and osteomyelitis right foot addressed with oral antibiotics. Hallux limitus Plan: I reviewed and discussed his case. The ulcer was debrided today as noted in the clinical panel. I recommend that he washes this daily with Dial soap and water and change the dressing with Aquacel Ag. A dressing was applied today. Pending continued progress and ulcer assessment next week, and additional application of advanced wound healing product epi-fix will be considered. His diagnostic data was reviewed and he did not have leukocytosis. His sedimentation rate was 44. His hemoglobin A1c was recently checked and was over 11%. He is undergoing medical management to help him decrease this. He is making lifestyle changes and is working less. His toe x-ray did not demonstrate any acute fracture dislocation or soft tissue emphysema or foreign body. His recent ankle x-ray did not demonstrate any fracture, dislocation, radiographic evidence of Charcot, soft tissue emphysema or foreign body. Significant small vessel calcification is seen. Subsequent MRI of the foot did confirm acute osteomyelitis of the distal phalanx of the hallux. He was advised to heel weight in the surgical shoe as recommended; he already has this. To avoid driving or any activity that continues to place pressure on this ulcer site. He relates he will repetitively uses his forefoot for driving and he also often places his foot next to a heater. I recommended offloading this more aggressively with a cam walker boot with dual density offloading Plastizote liners. He did get fitted for this at the foot [facility] center and understands proper use. His dressing is continually soiled and compliance was reviewed again today. I also recommend nutritional supplementation and a prescription for Tripp was provided. To improve glucose management. We discussed adequate protein intake and I answered his questions. To continue with improved nutrition to improve wellbeing and glycemic control. He is scheduled to see a engineering mathematician. His microbiology reports were reviewed and it appears he has multi-organism growth. To continue on Augmentin and levofloxacin. He was seen by infectious disease as well. We discussed wound care and antibiotics first with the addition of hyperbaric oxygen versus amputation including the indications and treatment options. The indications, benefits, anticipated course and management of hyperbaric oxygen therapy was discussed. He had an EF of about 45%. He is scheduled at this time and his prescription for continued session was updated by Shoshana Medina, clinical nurse practitioner. He understands he is at continued risk of limb loss and his success is compromised by his medical instability. I also recommend updating his noninvasive vascular studies and this has been scheduled. He had abnormal findings with calcification and noncompressible vessels. Given his recent rapid gangrenous finding a tissue loss I recommend a vascular surgery referral. A referral was provided see Dr. Olvera and input will be greatly appreciated.This was scheduled and he was advised to follow-up to aid in faster recovery at this time and to prevent future recurrence. I answered all his questions. To follow-up with the wound healing center in 1 week.
--- NOTE | 2020-06-11 11:54 | PCM.HBO.PN ---
History of Present Illness Date of Service: 06/11/20 Presenting Chief Complaint: Chronic right great toe ulceration with necrosis of bone/osteomyelitis?Peter grade 3 OLY SMITH is a 59 year old currently undergoing hyperbaric oxygen therapy for Peter grade 3 ulceration of the right great toe with osteomyelitis. Progress: Today's hyperbaric oxygen therapy session represents the 30th such session of an anticipated 60 such treatments. Tolerance of hyperbaric oxygen therapy: Hyperbaric oxygen therapy was administered as per the facility's protocol. Hyperbaric oxygen therapy was administered at 2 lisa and 100% oxygen for 90 minutes, with no air breaks. Hyperbaric oxygen therapy was tolerated well, without complaints or complications. Upon emergence from the hyperbaric chamber, the patient's vital signs remained stable. Pre- and post- treatment blood glucose as noted in clinical panel. The patient was discharged in good condition. 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) Type 2 diabetes mellitus with diabetic polyneuropathy (Chronic) Type 2 diabetes mellitus with diabetic polyneuropathy (Chronic) Cellulitis of right foot (Chronic) Type 1 diabetes mellitus (Chronic) Malnutrition (Chronic) Delayed wound healing (Chronic) PVD (peripheral vascular disease) (Chronic) Ulcer of right foot with necrosis of muscle (Chronic) Hammer toe of right foot (Chronic) Ulcer of right foot with fat layer exposed (Chronic) Non-pressure chronic ulcer of right heel and midfoot with bone involvement without evidence of necrosis (Chronic) Diabetic ulcer of right foot (Chronic) Type 2 diabetes mellitus with diabetic polyneuropathy (Chronic) Diabetes mellitus type II, uncontrolled (Chronic) Obesity (BMI 30-39.9) (Chronic) Tobacco use (Chronic) Allergies/Adverse Reactions: Allergies No Known Allergies Allergy (Verified 02/27/20 12:53) Home Medications: Ambulatory Orders Medication Instructions Recorded Insulin Aspart [Novolog Flexpen 25 units SUBCUT TIDCM 02/27/20 ([facility])] Semaglutide [Ozempic] 0.25 mg SQ QWEEK 05/20/20 Insulin Degludec [Tresiba] 80 unit SQ BID 05/28/20 Maternal Family History: - - Other with a history of colon cancer, metastatic. Paternal Family History: - - Father with a history of prostate cancer. Smoking Status: Never smoker Tobacco Use: Non-smoker Alcohol: None Drugs: None Physical Exam Vital Signs Temp Pulse Resp BP 97.6 F L 87 16 132/92 H 06/11/20 10:25 06/11/20 10:25 06/11/20 10:25 06/11/20 10:25 Assessment/Plan Active Problems Osteomyelitis (Chronic) Chronic ulcer of right foot with necrosis of bone (Chronic) Type 2 diabetes mellitus with diabetic polyneuropathy (Chronic) Diabetic foot ulcer associated with diabetes mellitus due to underlying condition (Acute) Malnutrition (Chronic) Delayed wound healing (Chronic) PVD (peripheral vascular disease) (Chronic) Diabetes mellitus type II, uncontrolled (Chronic) The patient appears to be tolerating hyperbaric oxygen therapy well, which will be continued as per the patient's medical plan. Treatment Course Number Number of HBO Treatments 60 Ordered Treatment Course Number 1 Treatment # 29 Chamber # 1 Chamber Type Monoplace HBO Diagnosis/Indication Diagnosis/Indication(s) for Right Diabetic Foot Ulcer Hyperbaric Therapy Classification - Peter Grade 3 Grading (Diabetic Ulcer) Diabetes - Detail Diabetes Diabetes Type II Right Extremity Ulcer, Heel & Midfoot Treatment Plan VALERIO (Atmospheric Absolute) 2 Number of Minutes 90 Number of Air Breaks 0
[2020-06-11 16:23] VITALS: BP 135/86; BP 152/92; PULSE 87; PULSE 95; RESP 18; TEMP 36.4; TEMP 36.6
[2020-06-12 08:31] LABS: Bedside Glucose 159 mg/dL (70-110)
--- NOTE | 2020-06-12 08:32 | PCM.HBO.PN ---
History of Present Illness Date of Service: 06/12/20 Presenting Chief Complaint: Chronic right great toe ulceration with necrosis of bone/osteomyelitis?Peter grade 3 OLY SMITH is a 59 year old currently undergoing hyperbaric oxygen therapy for Peter grade 3 ulceration of the right great toe with osteomyelitis. Progress: Today's hyperbaric oxygen therapy session represents the 31st such session of an anticipated 60 treatments. Tolerance of hyperbaric oxygen therapy: Hyperbaric oxygen therapy was administered as per the facility's protocol. Hyperbaric oxygen therapy was administered at 2 lisa and 100% oxygen for 90 minutes, with no air breaks. Hyperbaric oxygen therapy was tolerated well, without complaints or complications. Upon emergence from the hyperbaric chamber, the patient's vital signs remained stable. Pre- and post- treatment blood glucose as noted in clinical panel. The patient was discharged in good condition. 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) Type 2 diabetes mellitus with diabetic polyneuropathy (Chronic) Type 2 diabetes mellitus with diabetic polyneuropathy (Chronic) Cellulitis of right foot (Chronic) Type 1 diabetes mellitus (Chronic) Malnutrition (Chronic) Delayed wound healing (Chronic) PVD (peripheral vascular disease) (Chronic) Ulcer of right foot with necrosis of muscle (Chronic) Hammer toe of right foot (Chronic) Ulcer of right foot with fat layer exposed (Chronic) Non-pressure chronic ulcer of right heel and midfoot with bone involvement without evidence of necrosis (Chronic) Diabetic ulcer of right foot (Chronic) Type 2 diabetes mellitus with diabetic polyneuropathy (Chronic) Diabetes mellitus type II, uncontrolled (Chronic) Obesity (BMI 30-39.9) (Chronic) Tobacco use (Chronic) Allergies/Adverse Reactions: Allergies No Known Allergies Allergy (Verified 02/27/20 12:53) Home Medications: Ambulatory Orders Medication Instructions Recorded Insulin Aspart [Novolog Flexpen 25 units SUBCUT TIDCM 02/27/20 ([facility])] Semaglutide [Ozempic] 0.25 mg SQ QWEEK 05/20/20 Insulin Degludec [Tresiba] 80 unit SQ BID 05/28/20 Maternal Family History: - - Other with a history of colon cancer, metastatic. Paternal Family History: - - Father with a history of prostate cancer. 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 Treatment Course Number Number of HBO Treatments 60 Ordered Treatment Course Number 1 Treatment # 31 Chamber # [id number] Chamber Type Monoplace HBO Diagnosis/Indication Diagnosis/Indication(s) for Right Diabetic Foot Ulcer Hyperbaric Therapy Classification - Peter Grade 3 Grading (Diabetic Ulcer) Diabetes - Detail Diabetes Diabetes Type II Right Extremity Ulcer, Heel & Midfoot Treatment Plan VALERIO (Atmospheric Absolute) 2.0 Number of Minutes 90 Number of Air Breaks 0 HBO Supervision.
[2020-06-12 09:04] VITALS: BP 124/78; BP 141/95; PULSE 86; PULSE 94; RESP 16; RESP 18; TEMP 36.4; TEMP 36.6
[2020-06-12 10:50] LABS: Bedside Glucose 153 mg/dL (70-110)
[2020-06-13 08:21] LABS: Bedside Glucose 136 mg/dL (70-110)
[2020-06-13 08:55] LABS: Bedside Glucose 169 mg/dL (70-110)
[2020-06-13 09:14] VITALS: BP 141/91; BP 150/95; PULSE 93; PULSE 97; RESP 18; TEMP 36.4; TEMP 36.5
--- NOTE | 2020-06-13 13:32 | PCM.HBO.PN ---
History of Present Illness Date of Service: 06/13/20 Presenting Chief Complaint: Chronic right great toe ulceration with necrosis of bone/osteomyelitis?Peter grade 3 OLY SMITH is a 59 year old currently undergoing hyperbaric oxygen therapy for Peter grade 3 ulceration of the right great toe with osteomyelitis. Progress: Today's hyperbaric oxygen therapy session represents the 32nd such session of an anticipated 60 treatments. Tolerance of hyperbaric oxygen therapy: Hyperbaric oxygen therapy was administered as per the facility's protocol. Treatment was terminated approx. 10 minutes after initiation as he developed severe left ear pain while pressure was increased. Upon emergence from the hyperbaric chamber, the patient's vital signs remained stable. His right TM was WNL but the left TM had appearance of barotrauma with small amount of hemotympanum but his pain resolved and he denied any hearing change. Pre- and post- treatment blood glucose as noted in clinical panel. The patient was discharged in good condition. 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) Type 2 diabetes mellitus with diabetic polyneuropathy (Chronic) Type 2 diabetes mellitus with diabetic polyneuropathy (Chronic) Cellulitis of right foot (Chronic) Type 1 diabetes mellitus (Chronic) Malnutrition (Chronic) Delayed wound healing (Chronic) PVD (peripheral vascular disease) (Chronic) Ulcer of right foot with necrosis of muscle (Chronic) Hammer toe of right foot (Chronic) Ulcer of right foot with fat layer exposed (Chronic) Non-pressure chronic ulcer of right heel and midfoot with bone involvement without evidence of necrosis (Chronic) Diabetic ulcer of right foot (Chronic) Type 2 diabetes mellitus with diabetic polyneuropathy (Chronic) Diabetes mellitus type II, uncontrolled (Chronic) Obesity (BMI 30-39.9) (Chronic) Tobacco use (Chronic) Allergies/Adverse Reactions: Allergies No Known Allergies Allergy (Verified 02/27/20 12:53) Home Medications: Ambulatory Orders Medication Instructions Recorded Insulin Aspart [Novolog Flexpen 25 units SUBCUT TIDCM 02/27/20 ([facility])] Semaglutide [Ozempic] 0.25 mg SQ QWEEK 05/20/20 Insulin Degludec [Tresiba] 80 unit SQ BID 05/28/20 Maternal Family History: - - Other with a history of colon cancer, metastatic. Paternal Family History: - - Father with a history of prostate cancer. 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 Advised him to try loratadine and/or fluticasone nasal spray to treat eustachian tube dysfunction and will try to resume treatment on Tuesday if his ear is improved. He may require myringotomy tube placement and ENT referral if he continues to have pain and show barotrauma to his left TM. He was aware that this is a possibility. He will return on Tuesday for his next treatment. Treatment Course Number Number of HBO Treatments 60 Ordered Treatment Course Number 1 Treatment # 31 Chamber # [id number] Chamber Type Monoplace HBO Diagnosis/Indication Diagnosis/Indication(s) for Right Diabetic Foot Ulcer Hyperbaric Therapy Classification - Peter Grade 3 Grading (Diabetic Ulcer) Diabetes - Detail Diabetes Diabetes Type II Right Extremity Ulcer, Heel & Midfoot Treatment Plan VALERIO (Atmospheric Absolute) 2 Number of Minutes 90 Number of Air Breaks 2
[2020-06-16 08:06] LABS: Bedside Glucose 172 mg/dL (70-110)
[2020-06-16 08:49] VITALS: BP 143/90; BP 151/89; PULSE 90; PULSE 95; RESP 18; TEMP 36.3; TEMP 36.5
--- NOTE | 2020-06-16 08:55 | HBO.PN.PCM_ITS ---
History of Present Illness Date of Service: 06/16/20 Presenting Chief Complaint: Chronic right great toe ulceration with necrosis of bone/osteomyelitis?Peter grade 3 OLY SMITH is a 59 year old currently undergoing hyperbaric oxygen therapy for Peter grade 3 ulceration of the right great toe with osteomyelitis. Progress: Today's hyperbaric oxygen therapy session represents the 33rd such session of an anticipated 60 treatments. Tolerance of hyperbaric oxygen therapy: Hyperbaric oxygen therapy was administered as per the facility's protocol. Hyperbaric oxygen therapy was administered at 2 lisa and 100% oxygen for 90 minutes, with no air breaks. Hyperbaric oxygen therapy was tolerated well, without complaints or complications. Upon emergence from the hyperbaric chamber, the patient's vital signs remained stable. Pre- and post- treatment blood glucose as noted in clinical panel. The patient was discharged in good condition. 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) Type 2 diabetes mellitus with diabetic polyneuropathy (Chronic) Type 2 diabetes mellitus with diabetic polyneuropathy (Chronic) Cellulitis of right foot (Chronic) Type 1 diabetes mellitus (Chronic) Malnutrition (Chronic) Delayed wound healing (Chronic) PVD (peripheral vascular disease) (Chronic) Ulcer of right foot with necrosis of muscle (Chronic) Hammer toe of right foot (Chronic) Ulcer of right foot with fat layer exposed (Chronic) Non-pressure chronic ulcer of right heel and midfoot with bone involvement without evidence of necrosis (Chronic) Diabetic ulcer of right foot (Chronic) Type 2 diabetes mellitus with diabetic polyneuropathy (Chronic) Diabetes mellitus type II, uncontrolled (Chronic) Obesity (BMI 30-39.9) (Chronic) Tobacco use (Chronic) Allergies/Adverse Reactions: Allergies No Known Allergies Allergy (Verified 02/27/20 12:53) Home Medications: Ambulatory Orders Medication Instructions Recorded Insulin Aspart [Novolog Flexpen 25 units SUBCUT TIDCM 02/27/20 ([facility])] Semaglutide [Ozempic] 0.25 mg SQ QWEEK 05/20/20 Insulin Degludec [Tresiba] 80 unit SQ BID 05/28/20 Maternal Family History: - - Other with a history of colon cancer, metastatic. Paternal Family History: - - Father with a history of prostate cancer. 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) Type 2 diabetes mellitus with diabetic polyneuropathy (Chronic) Diabetic foot ulcer associated with diabetes mellitus due to underlying condition (Acute) Malnutrition (Chronic) Delayed wound healing (Chronic) PVD (peripheral vascular disease) (Chronic) Diabetes mellitus type II, uncontrolled (Chronic) Treatment Course Number Number of HBO Treatments 60 Ordered Treatment Course Number 1 Treatment # 33 Chamber # [id number] Chamber Type Monoplace HBO Diagnosis/Indication Diagnosis/Indication(s) for Right Diabetic Foot Ulcer Hyperbaric Therapy Classification - Peter Grade 3 Grading (Diabetic Ulcer) Diabetes - Detail Diabetes Diabetes Type II Right Extremity Ulcer, Heel & Midfoot Treatment Plan VALERIO (Atmospheric Absolute) 2 Number of Minutes 90 Number of Air Breaks 2
[2020-06-16 10:40] LABS: Bedside Glucose 113 mg/dL (70-110)
[2020-06-17 08:15] LABS: Bedside Glucose 187 mg/dL (70-110)
[2020-06-17 10:05] LABS: Bedside Glucose 167 mg/dL (70-110)
[2020-06-17 11:39] VITALS: BP 137/87; BP 142/89; PULSE 87; PULSE 90; RESP 16; TEMP 35.9; TEMP 36
--- NOTE | 2020-06-17 13:01 | PCM.HBO.PN ---
History of Present Illness Date of Service: 06/17/20 Presenting Chief Complaint: Chronic right great toe ulceration with necrosis of bone/osteomyelitis?Peter grade 3 OLY SMITH is a 59 year old currently undergoing hyperbaric oxygen therapy for Peter grade 3 ulceration of the right great toe with osteomyelitis. Progress: Today's hyperbaric oxygen therapy session represents the 34th such session of an anticipated 60 treatments. Tolerance of hyperbaric oxygen therapy: Hyperbaric oxygen therapy was administered as per the facility's protocol. Hyperbaric oxygen therapy was administered at 2 lisa and 100% oxygen for 90 minutes, with no air breaks. Hyperbaric oxygen therapy was tolerated well, without complaints or complications. Upon emergence from the hyperbaric chamber, the patient's vital signs remained stable. Pre- and post- treatment blood glucose as noted in clinical panel. The patient was discharged in good condition. 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) Type 2 diabetes mellitus with diabetic polyneuropathy (Chronic) Type 2 diabetes mellitus with diabetic polyneuropathy (Chronic) Cellulitis of right foot (Chronic) Type 1 diabetes mellitus (Chronic) Malnutrition (Chronic) Delayed wound healing (Chronic) PVD (peripheral vascular disease) (Chronic) Ulcer of right foot with necrosis of muscle (Chronic) Hammer toe of right foot (Chronic) Ulcer of right foot with fat layer exposed (Chronic) Non-pressure chronic ulcer of right heel and midfoot with bone involvement without evidence of necrosis (Chronic) Diabetic ulcer of right foot (Chronic) Type 2 diabetes mellitus with diabetic polyneuropathy (Chronic) Diabetes mellitus type II, uncontrolled (Chronic) Obesity (BMI 30-39.9) (Chronic) Tobacco use (Chronic) Allergies/Adverse Reactions: Allergies No Known Allergies Allergy (Verified 02/27/20 12:53) Home Medications: Ambulatory Orders Medication Instructions Recorded Insulin Aspart [Novolog Flexpen 25 units SUBCUT TIDCM 02/27/20 ([facility])] Semaglutide [Ozempic] 0.25 mg SQ QWEEK 05/20/20 Insulin Degludec [Tresiba] 80 unit SQ BID 05/28/20 Maternal Family History: - - Other with a history of colon cancer, metastatic. Paternal Family History: - - Father with a history of prostate cancer. 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 Treatment Course Number Number of HBO Treatments 60 Ordered Treatment Course Number 1 Treatment # 34 Chamber # 1 Chamber Type Monoplace HBO Diagnosis/Indication Diagnosis/Indication(s) for Right Diabetic Foot Ulcer Hyperbaric Therapy Classification - Peter Grade 3 Grading (Diabetic Ulcer) Diabetes - Detail Diabetes Diabetes Type II Right Extremity Ulcer, Heel & Midfoot Treatment Plan VALERIO (Atmospheric Absolute) 2 Number of Minutes 90 Number of Air Breaks 0
[2020-06-18 08:15] LABS: Bedside Glucose 211 mg/dL (70-110)
[2020-06-18 10:20] LABS: Bedside Glucose 219 mg/dL (70-110)
[2020-06-18 10:35] VITALS: BP 154/95; PULSE 86; RESP 18; TEMP 36.6; BMI 39.9
--- NOTE | 2020-06-18 10:49 | PCM.HBO.PN ---
History of Present Illness Date of Service: 06/18/20 Presenting Chief Complaint: Chronic right great toe ulceration with necrosis of bone/osteomyelitis?Peter grade 3 OLY SMITH is a 59 year old currently undergoing hyperbaric oxygen therapy for Peter grade 3 ulceration of the right great toe with osteomyelitis. Progress: Today's hyperbaric oxygen therapy session represents the 35th such session of an anticipated 60 treatments. Tolerance of hyperbaric oxygen therapy: Hyperbaric oxygen therapy was administered as per the facility's protocol. Hyperbaric oxygen therapy was administered at 2 lisa and 100% oxygen for 90 minutes, with no air breaks. Hyperbaric oxygen therapy was tolerated well, without complaints or complications. Upon emergence from the hyperbaric chamber, the patient's vital signs remained stable. Pre- and post- treatment blood glucose as noted in clinical panel. The patient was discharged in good condition. 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) Type 2 diabetes mellitus with diabetic polyneuropathy (Chronic) Type 2 diabetes mellitus with diabetic polyneuropathy (Chronic) Cellulitis of right foot (Chronic) Type 1 diabetes mellitus (Chronic) Malnutrition (Chronic) Delayed wound healing (Chronic) PVD (peripheral vascular disease) (Chronic) Ulcer of right foot with necrosis of muscle (Chronic) Hammer toe of right foot (Chronic) Ulcer of right foot with fat layer exposed (Chronic) Non-pressure chronic ulcer of right heel and midfoot with bone involvement without evidence of necrosis (Chronic) Diabetic ulcer of right foot (Chronic) Type 2 diabetes mellitus with diabetic polyneuropathy (Chronic) Diabetes mellitus type II, uncontrolled (Chronic) Obesity (BMI 30-39.9) (Chronic) Tobacco use (Chronic) Allergies/Adverse Reactions: Allergies No Known Allergies Allergy (Verified 02/27/20 12:53) Home Medications: Ambulatory Orders Medication Instructions Recorded Insulin Aspart [Novolog Flexpen 25 units SUBCUT TIDCM 02/27/20 ([facility])] Semaglutide [Ozempic] 0.25 mg SQ QWEEK 05/20/20 Insulin Degludec [Tresiba] 80 unit SQ BID 05/28/20 Maternal Family History: - - Other with a history of colon cancer, metastatic. Paternal Family History: - - Father with a history of prostate cancer. 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 Treatment Course Number Number of HBO Treatments 60 Ordered Treatment Course Number 1 Treatment # 34 Chamber # 1 Chamber Type Monoplace HBO Diagnosis/Indication Diagnosis/Indication(s) for Right Diabetic Foot Ulcer Hyperbaric Therapy Classification - Peter Grade 3 Grading (Diabetic Ulcer) Diabetes - Detail Diabetes Diabetes Type II Right Extremity Ulcer, Heel & Midfoot Treatment Plan VALERIO (Atmospheric Absolute) 2 Number of Minutes 90 Number of Air Breaks 0
--- NOTE | 2020-06-18 13:33 | PN.PCM_ITS ---
(1) Osteomyelitis Status: Chronic Qualifiers: Laterality: right Code(s): M86.9 - Osteomyelitis, unspecified (2) Chronic ulcer of right foot with necrosis of bone Status: Chronic Code(s): L97.514 - Non-pressure chronic ulcer of other part of right foot with necrosis of bone (3) Type 2 diabetes mellitus with diabetic polyneuropathy Status: Chronic Qualifiers: Code(s): E11.42 - Type 2 diabetes mellitus with diabetic polyneuropathy (4) Delayed wound healing Status: Chronic Code(s): T14.8XXD - Other injury of unspecified body region, subsequent encounter (5) PVD (peripheral vascular disease) Status: Chronic Code(s): I73.9 - Peripheral vascular disease, unspecified Type of Wound Date of Service: 06/18/20 Chief Complaint: Chronic right great toe ulceration with necrosis of bone/osteomyelitis?Peter grade 3 History of Wound: 59-year-old white male with diabetes and other comorbidities was seen today for right foot ulcer. He has completed his 6-week oral antibiotic course under the management of infectious disease without reported side effects. He has a Peter grade 3 ulcer and has also been diagnosed with acute osteomyelitis clinically and with MRI and clinical evaluation. He denies fever, chill, nausea, vomiting, diarrhea or other side effects since he started on antibiotics. He has been undergoing hyperbaric oxygen therapy treatment. Progress of Wound: Improving. - Physical Exam Vital Signs Temp Pulse Resp BP 97.8 F 86 18 154/95 H 06/18/20 10:35 06/18/20 10:35 06/18/20 10:35 06/18/20 10:35 General: Alert, Oriented x3, Cooperative, No apparent distress HEENT: Atraumatic Extremities: No cyanosis, Capillary Refill Less than 3 Seconds, No Calf Tenderness, Diminished Peripheral Pulses, Edema Skin: Ulcer/ Wound - No purulence, erythema, streaking, odor, infection. The ulcer is less deep and is granulating in well. There is also peripheral epithelialization noted. No bogginess or fluctuance. The adjacent skin is atrophic Wound Measurements and Assessment WC - Nurse 1 - General Ulcer Measurement Start: 05/20/20 11:12 Freq: Status: Active Protocol: Activity Type Activity Date Activity User E-Sign Co-Sign Detail Recorded Client Recorded Date Recorded By Document 06/18/20 10:35 DL [id number] 06/18/20 10:36 DL 06/18/20 10:35 Wound Center Nurse 1 [Ulcer Assessment] #10 right great toe plantar -Current Size (cm) - Length 0.3 -Current Size (cm) - Width 0.3 -Current Size (cm) - Depth 0.3 -Total Square Cm 0.09 -Photo Taken No -Exudate Amt None Present -Wound Margin Distinct, Outline Attached -Granulation Amt Small (1-33%) -Granulation Quality Red -Necrosis Amt None Present (0 %) -Structure Exposed N/A -Texture (Belle-wound Skin Appearance) Scarring -Moisture (Belle-wound Skin Appearance No Abnormality ) -Color (Belle-wound Skin Appearance) No Abnormality -Temperature (Belle-wound Skin No Abnormality Appearance) (Pt Warm) -Tenderness on Palpation (Belle-wound No Skin Appearance) -Ulcer Cleansing Wound Cleanser -Foul Odor after Cleansing No -Anesthetic Used 4% Lidocaine Solution WC - Nurse 2 - General Ulcer CM Notes Start: 05/20/20 11:12 Freq: Status: Active Protocol: Activity Type Activity Date Activity User E-Sign Co-Sign Detail Recorded Client Recorded Date Recorded By Document 06/18/20 10:30 ALEENA [id number] 06/18/20 10:31 ALEENA 06/18/20 10:30 Wound Center Nurse 2 [Procedure/Treatment] -Time 10:30 -Correct Patient Yes -Correct Side, Site, Position Yes -Correct Procedure Yes -Procedure Performed Yes -Type of Procedure Debridement -Clinical Debridement Subcutaneous -Tissue Removed Subcutaneous -Post Debridement (cm) - Length 0.3 -Post Debridement (cm) - Width 0.4 -Post Debridement (cm) - Depth 0.1 -Total Square (Post) (cm) 0.12 -Area of Debridement (cm) - Length 0.3 -Area of Debridement (cm) - Width 0.4 -Total Square (Area) (cm) 0.12 -Tunneling No -Undermining/Tunneling No -Circular Undermining No -Wound/Ulcer Outcome Not Healed -Ulcer Cleansing Rinsed/ Irrigated with Saline -Foul Odor after Cleansing No -Bioengineered Tissue No -Bleeding Controlled with Pressure -Offloading Yes -Type of Offloading Knee Walker -Treatment Response Procedure Tolerated Well -Debridement - Subq, 1st 20sq cm Yes [See Physician Procedure note for Specifics] Pain Scale: 0-10 Numeric [Pain] -Is Patient Pain Free? Yes - Nurse 3 - General Ulcer D/C NN Start: 05/20/20 11:12 Freq: Status: Active Protocol: Activity Type Activity Date Activity User E-Sign Co-Sign Detail Recorded Client Recorded Date Recorded By Document 06/17/20 11:39 [id number] 06/17/20 11:43 06/17/20 11:39 Vital Signs [Temperature Protocol: VS] -Temperature (97.8 F-99.1 F) 96.8 F L -Temperature Source Temporal [Pulse] -Pulse Rate (60-100) 87 -Pulse Location Monitor [Respirations] -Respiratory Rate (12-18) 16 -Respiratory rate source Observation [Blood Pressure] -Blood Pressure (90/60-120/80) 142/89 H -Blood Pressure Mean (mm Hg) 106 -Source Monitor -Position Semi-Fowlers -Blood Pressure Location Right Arm Pain Scale: 0-10 Numeric [Pain] -Is Patient Pain Free? Yes - Visit Discharge [Visit Discharge Information] -Discharge Condition Stable -Ambulatory Status Ambulatory, Walker -Transportation Private Auto -Medication Reconcilliation completed Yes & provided to patient/care provider -Clinical Summary of Care Provided Yes Musculoskeletal: No Tenderness to Palpation of Joints or Extremities, Muscle Wasting Neurological: - - Lack of epicritic sensation light touch is consistent with his neuropathy status Psych/Mental Status: Normal Affect, Appropriate Debridement Note Post-Debridement Measurements/Treatment - Nurse 2 - General Ulcer CM Notes Start: 05/20/20 11:12 Freq: Status: Active Protocol: Activity Type Activity Date Activity User E-Sign Co-Sign Detail Recorded Client Recorded Date Recorded By Document 05/21/20 10:46 [id number] 05/21/20 10:49 Document 05/28/20 11:24 [id number] 05/28/20 11:25 Document 06/04/20 12:07 [id number] 06/04/20 12:08 Document 06/11/20 10:56 [id number] 06/11/20 10:58 Document 06/18/20 10:30 [id number] 06/18/20 10:31 05/21/20 05/28/20 06/04/20 10:46 11:24 12:07 Wound Center Nurse 2 #10 right great toe plantar -Time 10:47 11:24 12:07 -Correct Patient Yes Yes Yes -Correct Side, Site, Position Yes Yes Yes -Correct Procedure Yes Yes Yes -Procedure Performed Yes Yes Yes -Type of Procedure Debridement Debridement Debridement -Clinical Debridement Subcutaneous Subcutaneous Subcutaneous -Tissue Removed Subcutaneous Subcutaneous Subcutaneous -Post Debridement (cm) - Length 1.5 0.8 0.6 -Post Debridement (cm) - Width 1.7 0.8 0.8 -Post Debridement (cm) - Depth 0.3 0.2 0.1 -Total Square (Post) (cm) 2.55 0.64 0.48 -Area of Debridement (cm) - Length 1.5 0.8 0.6 -Area of Debridement (cm) - Width 1.7 0.8 0.8 -Total Square (Area) (cm) 2.55 0.64 0.48 -Tunneling No No No -Undermining/Tunneling No No No -Circular Undermining No No No -Wound/Ulcer Outcome Not Healed Not Healed Not Healed -Ulcer Cleansing Rinsed/ Rinsed/ Rinsed/ Irrigated with Irrigated with Irrigated with Saline Saline Saline -Foul Odor after Cleansing No No No -Bioengineered Tissue Yes Yes Yes -Type of Bioengineered Tissue Epifix 18mm Epifix 18mm Epifix 18mm Disc Disc Disc -Expiration Date 01/17/25 01/17/25 02/17/25 -Product Lot Number [id number] -Percent Used 100 100 100 -Saline Lot Number [id number] -Bleeding Controlled with Pressure Pressure Pressure -Offloading Yes Yes Yes -Type of Offloading Camwalker Camwalker Camwalker -Treatment Response Procedure Procedure Procedure Tolerated Well Tolerated Well Tolerated Well -Debridement - Subq, 1st 20sq cm No No No -Apply Skin Sub - 1st 25 sq cm - Feet 1 1 1 -Epifix 18mm Disc 3 3 3 Pain Scale: 0-10 Numeric Is Patient Pain Free? Yes 06/11/20 06/18/20 10:56 10:30 Wound Center Nurse 2 #10 right great toe plantar -Time 10:57 10:30 -Correct Patient Yes Yes -Correct Side, Site, Position Yes Yes -Correct Procedure Yes Yes -Procedure Performed Yes Yes -Type of Procedure Debridement Debridement -Clinical Debridement Subcutaneous Subcutaneous -Tissue Removed Subcutaneous Subcutaneous -Post Debridement (cm) - Length 0.4 0.3 -Post Debridement (cm) - Width 0.5 0.4 -Post Debridement (cm) - Depth 0.2 0.1 -Total Square (Post) (cm) 0.20 0.12 -Area of Debridement (cm) - Length 0.4 0.3 -Area of Debridement (cm) - Width 0.5 0.4 -Total Square (Area) (cm) 0.20 0.12 -Tunneling No No -Undermining/Tunneling No No -Circular Undermining No No -Wound/Ulcer Outcome Not Healed Not Healed -Ulcer Cleansing Rinsed/ Rinsed/ Irrigated with Irrigated with Saline Saline -Foul Odor after Cleansing No No -Bioengineered Tissue No No -Type of Bioengineered Tissue -Expiration Date -Product Lot Number -Percent Used -Saline Lot Number -Bleeding Controlled with Pressure Pressure -Offloading Yes Yes -Type of Offloading Camwalker Knee Walker -Treatment Response Procedure Procedure Tolerated Well Tolerated Well -Debridement - Subq, 1st 20sq cm Yes Yes -Apply Skin Sub - 1st 25 sq cm - Feet -Epifix 18mm Disc Pain Scale: 0-10 Numeric Is Patient Pain Free? Yes Yes - Nurse 3 - General Ulcer D/C NN Start: 05/20/20 11:12 Freq: Status: Active Protocol: Activity Type Activity Date Activity User E-Sign Co-Sign Detail Recorded Client Recorded Date Recorded By Document 05/20/20 11:13 [id number] 05/20/20 11:18 Document 05/21/20 11:04 RB [id number] 05/21/20 11:05 RB Document 05/23/20 10:36 JF [id number] 05/23/20 10:39 JF Document 05/27/20 12:18 JF [id number] 05/27/20 12:21 JF Document 05/28/20 11:46 MT [id number] 05/28/20 11:47 MT Document 06/03/20 11:12 JF [id number] 06/03/20 11:16 JF Document 06/04/20 12:34 MW [id number] 06/04/20 12:36 MW Document 06/06/20 11:02 [id number] 06/06/20 11:08 Document 06/10/20 11:26 [id number] 06/10/20 11:36 Document 06/11/20 11:12 [id number] 06/11/20 11:13 Document 06/17/20 11:39 [id number] 06/17/20 11:43 05/20/20 05/21/20 05/23/20 11:13 11:04 10:36 Wound Care Nurse 3 #10 right great toe plantar -Ulcer Cleansing -Foul Odor after Cleansing -Negative Pressure Wound Therapy -Primary Dressing Applied -Primary Dressing Covered/Secured with Dry Gauze,Dry Gauze & Roll Gauze,Secured with Tape -Other Covering -Aquacel AG 4x4 Right -Lotion applied to leg before compression wrap -Tubular Bandage Single Layer -Size of Tubigrip Used Size D -Size C ($) -Size D ($) 1 -Stockings No Treatment Response Procedure Tolerated Well Pain Scale: 0-10 Numeric Vital Signs Is Patient Pain Free? Yes Yes Yes Temperature (97.8 F-99.1 F) Temperature Source Pulse Rate (60-100) Pulse Location Respiratory Rate (12-18) Respiratory rate source Blood Pressure (90/60-120/80) Blood Pressure Mean (mm Hg) Source Position Blood Pressure Location Teaching: Wound Center Dressing Your Wound -Person Taught -Teaching Method -Response to teaching WC - Visit Discharge Discharge Condition Stable Stable Stable Ambulatory Status Ambulatory, Ambulatory Ambulatory, Walker Walker Transportation Private Auto Private Auto Private Auto Accompanied by Medication Reconcilliation completed & Yes No Yes provided to patient/care provider Clinical Summary of Care Provided Yes Yes Yes Notes: stiven 05/27/20 05/28/20 06/03/20 12:18 11:46 11:12 Wound Care Nurse 3 #10 right great toe plantar -Ulcer Cleansing -Foul Odor after Cleansing -Negative Pressure Wound Therapy -Primary Dressing Applied -Primary Dressing Covered/Secured with Dry Gauze, Secured with Tape -Other Covering -Aquacel AG 4x4 Right -Lotion applied to leg before compression wrap -Tubular Bandage -Size of Tubigrip Used Size C -Size C ($) 1 -Size D ($) -Stockings Treatment Response Pain Scale: 0-10 Numeric Vital Signs Is Patient Pain Free? Yes Yes Temperature (97.8 F-99.1 F) Temperature Source Pulse Rate (60-100) Pulse Location Respiratory Rate (12-18) Respiratory rate source Blood Pressure (90/60-120/80) Blood Pressure Mean (mm Hg) Source Position Blood Pressure Location Teaching: Wound Center Dressing Your Wound -Person Taught -Teaching Method -Response to teaching WC - Visit Discharge Discharge Condition Stable Stable Stable Ambulatory Status Ambulatory, Walker Ambulatory, Walker Walker Transportation Private Auto Private Auto Private Auto Accompanied by Medication Reconcilliation completed & Yes No Yes provided to patient/care provider Clinical Summary of Care Provided Yes Yes Yes Notes: 06/04/20 06/06/20 06/10/20 12:34 11:02 11:26 Wound Care Nurse 3 #10 right great toe plantar -Ulcer Cleansing Not Cleansed -Foul Odor after Cleansing No -Negative Pressure Wound Therapy N/A -Primary Dressing Applied -Primary Dressing Covered/Secured with Dry Gauze, Secured with Tape -Other Covering -Aquacel AG 4x4 Right -Lotion applied to leg before No compression wrap -Tubular Bandage -Size of Tubigrip Used Size D -Size C ($) -Size D ($) 1 -Stockings Treatment Response Procedure Tolerated Well Pain Scale: 0-10 Numeric Vital Signs Is Patient Pain Free? Yes Yes Yes Temperature (97.8 F-99.1 F) Temperature Source Pulse Rate (60-100) Pulse Location Respiratory Rate (12-18) Respiratory rate source Blood Pressure (90/60-120/80) Blood Pressure Mean (mm Hg) Source Position Blood Pressure Location Teaching: Wound Center Dressing Your Wound -Person Taught Patient -Teaching Method Discussion, Demonstration -Response to teaching Verbalize understanding WC - Visit Discharge Discharge Condition Stable Stable Stable Ambulatory Status Ambulatory, Ambulatory, Ambulatory, Walker Walker Walker Transportation Private Auto Private Auto Private Auto Accompanied by self Medication Reconcilliation completed & No Yes Yes provided to patient/care provider Clinical Summary of Care Provided Yes Yes Yes Notes: 06/11/20 06/17/20 11:12 11:39 Wound Care Nurse 3 #10 right great toe plantar -Ulcer Cleansing Not Cleansed -Foul Odor after Cleansing No -Negative Pressure Wound Therapy N/A -Primary Dressing Applied Aquacel AG 4x4 -Primary Dressing Covered/Secured with Dry Gauze & Roll Gauze, Other -Other Covering 0 -Aquacel AG 4x4 1 Right -Lotion applied to leg before compression wrap -Tubular Bandage Single Layer -Size of Tubigrip Used Size D -Size C ($) -Size D ($) 1 -Stockings Treatment Response Pain Scale: 0-10 Numeric Vital Signs Is Patient Pain Free? Yes Temperature (97.8 F-99.1 F) 96.8 F L Temperature Source Temporal Pulse Rate (60-100) 87 Pulse Location Monitor Respiratory Rate (12-18) 16 Respiratory rate source Observation Blood Pressure (90/60-120/80) 142/89 H Blood Pressure Mean (mm Hg) 106 Source Monitor Position Semi-Fowlers Blood Pressure Location Right Arm Teaching: Wound Center Dressing Your Wound -Person Taught -Teaching Method -Response to teaching WC - Visit Discharge Discharge Condition Stable Stable Ambulatory Status Ambulatory Ambulatory, Walker Transportation Private Auto Private Auto Accompanied by self Medication Reconcilliation completed & Yes Yes provided to patient/care provider Clinical Summary of Care Provided Yes Yes Notes: Wound debrided: plantar hallux Laterality: Right Wound Grade/Stage: grade 3 Type of Debridement: Excisional debridement Anesthesia Used: 5% Lidocaine Gel Depth: in the subcutaneous layer Percentage of wound debrided: 100 Instrument Used: #15 blade Tissue Removed: fibrous, devitalized subcutaneous, biofilm, slough Severity: Fat Layer Exposed Amount of bleeding with debridement: Mild Bleeding Controlled with: Pressure Patient tolerated procedure well Assessment/Plan Assessment: Diabetes, uncontrolled (hemoglobin A1C is over 11%). Ulcer right hallux bone layer exposed (peter grade 3). osteomyelitis distal phalanx of hallux. Cellulitis and osteomyelitis right foot addressed with oral antibiotics and hyperbaric oxygen therapy. Hallux limitus Plan: I reviewed and discussed his case. The ulcer was debrided today as noted in the clinical panel. I recommend that he washes this daily with Dial soap and water and change the dressing with MedEncentive Ag. A dressing was applied today. Pending continued progress and ulcer assessment next week, and additional application of advanced wound healing product epi-fix will be considered. His diagnostic data was reviewed and he did not have leukocytosis. His sed imentation rate was 44. His hemoglobin A1c was recently checked and was over 11%. He is undergoing medical management to help him decrease this. He is making lifestyle changes and is working less. His toe x-ray did not demonstrate any acute fracture dislocation or soft tissue emphysema or foreign body. His recent ankle x-ray did not demonstrate any fracture, dislocation, radiographic evidence of Charcot, soft tissue emphysema or foreign body. Significant small vessel calcification is seen. Subsequent MRI of the foot did confirm acute osteomyelitis of the distal phalanx of the hallux. He was advised to heel weight in the surgical shoe as recommended; he already has this. To avoid driving or any activity that continues to place pressure on this ulcer site. He relates he will repetitively uses his forefoot for driving and he also often places his foot next to a heater. I recommended offloading this more aggressively with a cam walker boot with dual density offloading Plastizote liners. He did get fitted for this at the foot and ankle center and understands proper use. His dressing is continually soiled and compliance was reviewed again today. I also recommend nutritional supplementation and a prescription for Tripp was provided. To improve glucose management. We discussed adequate protein intake and I answered his questions. To continue with improved nutrition to improve wellbeing and glycemic control. He is scheduled to see a grave cleaner. His microbiology reports were reviewed and it appears he has multi-organism growth. To continue on Augmentin and levofloxacin. He was seen by infectious disease as well. We discussed wound care and antibiotics first with the addition of hyperbaric oxygen versus amputation including the indications and treatment options. The indications, benefits, anticipated course and management of hyperbaric oxygen therapy was discussed. He had an EF of about 45%. He is scheduled at this time and his prescription for continued session was updated by Shoshana Medina, clinical nurse practitioner. He understands he is at continued risk of limb loss and his success is compromised by his medical instability. I also recommend updating his noninvasive vascular studies and this has been scheduled. He had abnormal findings with calcification and noncompressible vessels. Given his recent rapid gangrenous finding a tissue loss I recommend a vascular surgery referral. A referral was provided see Dr. Olvera and input will be greatly appreciated.This was scheduled and he was advised to follow-up to aid in faster recovery at this time and to prevent future recurrence. I answered all his questions. To follow-up with the wound healing center in 1 week.
[2020-06-18 15:00] VITALS: BP 139/83; BP 154/95; PULSE 86; PULSE 95; RESP 18; TEMP 36; TEMP 36.6
== END 2020-06-18 23:59 ==
LOC: WC 08:00
PROVIDERS: PCP Family Medicine; Visit Provider Podiatrist
DX: E11.621 Type 2 diabetes mellitus with foot ulcer (principal); E11.69 Type 2 diabetes mellitus with other specified complication; E66.9 Obesity, unspecified; L03.115 Cellulitis of right lower limb; M20.5X9 Other deformities of toe(s) (acquired), unspecified foot; L97.514 Non-pressure chronic ulcer of other part of right foot with necrosis of bone; E11.51 Type 2 diabetes mellitus with diabetic peripheral angiopathy without gangrene; E11.42 Type 2 diabetes mellitus with diabetic polyneuropathy; E11.65 Type 2 diabetes mellitus with hyperglycemia; L97.512 Non-pressure chronic ulcer of other part of right foot with fat layer exposed; M86.671 Other chronic osteomyelitis, right ankle and foot; Z72.0 Tobacco use
CPT/HCPCS: 11042; 15275; 82962; 99183; 99213; Q4186; G0277; G0463

== ENCOUNTER 2020-06-25 08:00 | Outpatient (RCR) | payer BC, SELFPAY ==
[2020-06-19 00:36] VITALS: BP 139/83; PULSE 95; RESP 18; TEMP 36
[2020-06-19 11:35] VITALS: BP 134/80; BP 145/94; PULSE 84; PULSE 91; RESP 16; RESP 18; TEMP 36.1; TEMP 36.2
--- NOTE | 2020-06-19 12:05 | PCM.HBO.PN ---
History of Present Illness Date of Service: 06/19/20 Presenting Chief Complaint: Chronic right great toe ulceration with necrosis of bone/osteomyelitis?Peter grade 3 OLY SMITH is a 59 year old currently undergoing hyperbaric oxygen therapy for Peter grade 3 ulceration of the right great toe with osteomyelitis. Progress: Today's hyperbaric oxygen therapy session represents the 36th such session of an anticipated 60 treatments. Tolerance of hyperbaric oxygen therapy: Hyperbaric oxygen therapy was administered as per the facility's protocol. Hyperbaric oxygen therapy was administered at 2 lisa and 100% oxygen for 90 minutes, with no air breaks. Hyperbaric oxygen therapy was tolerated well, without complaints or complications. Upon emergence from the hyperbaric chamber, the patient's vital signs remained stable. Pre- and post- treatment blood glucose as noted in clinical panel. The patient was discharged in good condition. 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) Type 2 diabetes mellitus with diabetic polyneuropathy (Chronic) Type 2 diabetes mellitus with diabetic polyneuropathy (Chronic) Cellulitis of right foot (Chronic) Type 1 diabetes mellitus (Chronic) Malnutrition (Chronic) Delayed wound healing (Chronic) PVD (peripheral vascular disease) (Chronic) Ulcer of right foot with necrosis of muscle (Chronic) Hammer toe of right foot (Chronic) Ulcer of right foot with fat layer exposed (Chronic) Non-pressure chronic ulcer of right heel and midfoot with bone involvement without evidence of necrosis (Chronic) Diabetic ulcer of right foot (Chronic) Type 2 diabetes mellitus with diabetic polyneuropathy (Chronic) Diabetes mellitus type II, uncontrolled (Chronic) Obesity (BMI 30-39.9) (Chronic) Tobacco use (Chronic) Allergies/Adverse Reactions: Allergies No Known Allergies Allergy (Verified 02/27/20 12:53) Home Medications: Ambulatory Orders Medication Instructions Recorded Insulin Aspart [Novolog Flexpen 25 units SUBCUT TIDCM 02/27/20 ([facility])] Semaglutide [Ozempic] 0.25 mg SQ QWEEK 05/20/20 Insulin Degludec [Tresiba] 80 unit SQ BID 05/28/20 Maternal Family History: - - Other with a history of colon cancer, metastatic. Paternal Family History: - - Father with a history of prostate cancer. Smoking Status: Never smoker Tobacco Use: Non-smoker Physical Exam Vital Signs Temp Pulse Resp BP 97.1 F L 91 18 134/80 H 06/19/20 11:35 06/19/20 11:35 06/19/20 11:35 06/19/20 11:35 General: Alert, Oriented x3, Cooperative, No apparent distress HEENT: Atraumatic, TM's Clear Lungs: Clear to auscultation, Normal air movement Cardiovascular: Regular rate, Regular Rhythm Psych/Mental Status: Normal Affect, Appropriate, Alert and oriented to time, place, person, mood and affect Assessment/Plan Treatment Course Number Treatment Course Number 1 Treatment # 36 Chamber Type Monoplace HBO Diagnosis/Indication Diagnosis/Indication(s) for Right Diabetic Foot Ulcer Hyperbaric Therapy Classification - Peter Grade 3 Grading (Diabetic Ulcer) Diabetes - Detail Diabetes Diabetes Type II Diabetes Control Uncontrolled Right Extremity Ulcer, Heel & Midfoot Treatment Plan VALERIO (Atmospheric Absolute) 2 Number of Minutes 90 Number of Air Breaks 0
[2020-06-19 16:05] LABS: Bedside Glucose 211 mg/dL (70-110)
[2020-06-19 16:05] LABS: Bedside Glucose 167 mg/dL (70-110)
[2020-06-23 08:15] LABS: Bedside Glucose 138 mg/dL (70-110)
--- NOTE | 2020-06-23 08:54 | HBO.PN.PCM_ITS ---
History of Present Illness Date of Service: 06/23/20 Presenting Chief Complaint: Chronic right great toe ulceration with necrosis of bone/osteomyelitis?Peter grade 3 OLY SMITH is a 59 year old currently undergoing hyperbaric oxygen therapy for Peter grade 3 ulceration of the right great toe with osteomyelitis. Progress: Today's hyperbaric oxygen therapy session represents the 37th such session of an anticipated 60 treatments. Tolerance of hyperbaric oxygen therapy: Hyperbaric oxygen therapy was administered as per the facility's protocol. Hyperbaric oxygen therapy was administered at 2 lisa and 100% oxygen for 90 minutes, with no air breaks. Hyperbaric oxygen therapy was tolerated well, without complaints or complications. Upon emergence from the hyperbaric chamber, the patient's vital signs remained stable. Pre- and post- treatment blood glucose as noted in clinical panel. The patient was discharged in good condition. 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) Type 2 diabetes mellitus with diabetic polyneuropathy (Chronic) Type 2 diabetes mellitus with diabetic polyneuropathy (Chronic) Cellulitis of right foot (Chronic) Type 1 diabetes mellitus (Chronic) Malnutrition (Chronic) Delayed wound healing (Chronic) PVD (peripheral vascular disease) (Chronic) Ulcer of right foot with necrosis of muscle (Chronic) Hammer toe of right foot (Chronic) Ulcer of right foot with fat layer exposed (Chronic) Non-pressure chronic ulcer of right heel and midfoot with bone involvement without evidence of necrosis (Chronic) Diabetic ulcer of right foot (Chronic) Type 2 diabetes mellitus with diabetic polyneuropathy (Chronic) Diabetes mellitus type II, uncontrolled (Chronic) Obesity (BMI 30-39.9) (Chronic) Tobacco use (Chronic) Allergies/Adverse Reactions: Allergies No Known Allergies Allergy (Verified 02/27/20 12:53) Home Medications: Ambulatory Orders Medication Instructions Recorded Insulin Aspart [Novolog Flexpen 25 units SUBCUT TIDCM 02/27/20 ([facility])] Semaglutide [Ozempic] 0.25 mg SQ QWEEK 05/20/20 Insulin Degludec [Tresiba] 80 unit SQ BID 05/28/20 Maternal Family History: - - Other with a history of colon cancer, metastatic. Paternal Family History: - - Father with a history of prostate cancer. Smoking Status: Never smoker Tobacco Use: Non-smoker Physical Exam Vital Signs Temp Pulse Resp BP 97.1 F L 91 18 134/80 H 06/19/20 11:35 06/19/20 11:35 06/19/20 11:35 06/19/20 11:35 General: Alert, Oriented x3, Cooperative, No apparent distress HEENT: Atraumatic, - - right TM injected to the right upper medial aspect, asymptomatic Lungs: Clear to auscultation, Normal air movement Cardiovascular: Regular rate, Regular Rhythm Psych/Mental Status: Normal Affect, Appropriate, Alert and oriented to time, place, person, mood and affect Assessment/Plan Treatment Course Number Treatment Course Number 1 Treatment # 37 Chamber Type Monoplace HBO Diagnosis/Indication Diagnosis/Indication(s) for Right Diabetic Foot Ulcer Hyperbaric Therapy Classification - Peter Grade 3 Grading (Diabetic Ulcer) Diabetes - Detail Diabetes Diabetes Type II Diabetes Control Uncontrolled Right Extremity Ulcer, Heel & Midfoot Treatment Plan VALERIO (Atmospheric Absolute) 2 Number of Minutes 90 Number of Air Breaks 0
[2020-06-23 09:06] VITALS: BP 139/88; BP 154/91; PULSE 90; PULSE 94; RESP 18; TEMP 36.1; TEMP 36.3
[2020-06-23 10:41] LABS: Bedside Glucose 141 mg/dL (70-110)
[2020-06-25 08:06] LABS: Bedside Glucose 200 mg/dL (70-110)
[2020-06-25 10:10] LABS: Bedside Glucose 197 mg/dL (70-110)
[2020-06-25 10:24] VITALS: BP 149/86; PULSE 91; RESP 18; TEMP 36.4; BMI 39.9
[2020-06-25 10:58] VITALS: BP 140/84; BP 149/86; PULSE 90; PULSE 91; RESP 18; TEMP 36.4; TEMP 36.6
--- NOTE | 2020-06-25 12:17 | HBO.PN.PCM_ITS ---
History of Present Illness Date of Service: 06/25/20 Presenting Chief Complaint: Chronic right great toe ulceration with necrosis of bone/osteomyelitis?Peter grade 3 OLY SMITH is a 59 year old currently undergoing hyperbaric oxygen therapy for Peter grade 3 ulceration of the right great toe with osteomyelitis. Progress: Today's hyperbaric oxygen therapy session represents the 38th such session of an anticipated 60 treatments. Tolerance of hyperbaric oxygen therapy: Hyperbaric oxygen therapy was administered as per the facility's protocol. Hyperbaric oxygen therapy was administered at 2 lisa and 100% oxygen for 90 minutes, with no air breaks. Hyperbaric oxygen therapy was tolerated well, without complaints or complications. Upon emergence from the hyperbaric chamber, the patient's vital signs remained stable. Pre- and post- treatment blood glucose as noted in clinical panel. The patient was discharged in good condition. 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) Type 2 diabetes mellitus with diabetic polyneuropathy (Chronic) Type 2 diabetes mellitus with diabetic polyneuropathy (Chronic) Cellulitis of right foot (Chronic) Type 1 diabetes mellitus (Chronic) Malnutrition (Chronic) Delayed wound healing (Chronic) PVD (peripheral vascular disease) (Chronic) Ulcer of right foot with necrosis of muscle (Chronic) Hammer toe of right foot (Chronic) Ulcer of right foot with fat layer exposed (Chronic) Non-pressure chronic ulcer of right heel and midfoot with bone involvement without evidence of necrosis (Chronic) Diabetic ulcer of right foot (Chronic) Type 2 diabetes mellitus with diabetic polyneuropathy (Chronic) Diabetes mellitus type II, uncontrolled (Chronic) Obesity (BMI 30-39.9) (Chronic) Tobacco use (Chronic) Allergies/Adverse Reactions: Allergies No Known Allergies Allergy (Verified 02/27/20 12:53) Home Medications: Ambulatory Orders Medication Instructions Recorded Insulin Aspart [Novolog Flexpen 25 units SUBCUT TIDCM 02/27/20 ([facility])] Semaglutide [Ozempic] 0.25 mg SQ QWEEK 05/20/20 Insulin Degludec [Tresiba] 80 unit SQ BID 05/28/20 Maternal Family History: - - Other with a history of colon cancer, metastatic. Paternal Family History: - - Father with a history of prostate cancer. Smoking Status: Never smoker Tobacco Use: Non-smoker Physical Exam Vital Signs Temp Pulse Resp BP 97.6 F L 90 18 140/84 H 06/25/20 10:58 06/25/20 10:58 06/25/20 10:58 06/25/20 10:58 Assessment/Plan Treatment Course Number Number of HBO Treatments 60 Ordered Treatment Course Number 1 Treatment # 38 Chamber # [id number] Chamber Type Monoplace HBO Diagnosis/Indication Diagnosis/Indication(s) for Right Diabetic Foot Ulcer Hyperbaric Therapy Classification - Peter Grade 3 Grading (Diabetic Ulcer) Diabetes - Detail Diabetes Diabetes Type II Diabetes Control Uncontrolled Right Extremity Ulcer, Heel & Midfoot Treatment Plan VALERIO (Atmospheric Absolute) 2.0 Number of Minutes 90 Number of Air Breaks 0 tolerated HBO and vital signs stable throughout the treatment continue as prescribed
--- NOTE | 2020-06-25 12:22 | PN.PCM_ITS ---
(1) Diabetic foot ulcer associated with diabetes mellitus due to underlying condition Status: Acute Current Visit: Yes Qualifiers: Diabetic foot ulcer location: toe Code(s): E08.621 - Diabetes mellitus due to underlying condition with foot ulcer; L97.509 - Non-pressure chronic ulcer of other part of unspecified foot with unspecified severity (2) Diabetic foot ulcer with osteomyelitis Status: Acute Current Visit: Yes Code(s): E11.621 - Type 2 diabetes mellitus with foot ulcer; E11.69 - Type 2 diabetes mellitus with other specified complication; L97.509 - Non-pressure chronic ulcer of other part of unspecified foot with unspecified severity; M86.9 - Osteomyelitis, unspecified (3) Delayed wound healing Status: Chronic Current Visit: Yes Code(s): T14.8XXD - Other injury of unspecified body region, subsequent encounter (4) Diabetes mellitus type II, uncontrolled Status: Chronic Current Visit: Yes Qualifiers: Code(s): E11.65 - Type 2 diabetes mellitus with hyperglycemia Type of Wound Date of Service: 06/25/20 Chief Complaint: Chronic right great toe ulceration with necrosis of bone/osteomyelitis?Peter grade 3 History of Wound: 59-year-old white male with diabetes and other comorbidities was seen today for right foot ulcer. He has completed his 6-week oral antibi otic course under the management of infectious disease without reported side effects. He has a Peter grade 3 ulcer and has also been diagnosed with acute osteomyelitis clinically and with MRI and clinical evaluation. He denies fever, chill, nausea, vomiting, diarrhea or other side effects since he started on antibiotics. He has been undergoing hyperbaric oxygen therapy treatment. Progress of Wound: the wound is resolved and no longer needs hbo - Physical Exam Vital Signs Temp Pulse Resp BP 97.6 F L 90 18 140/84 H 06/25/20 10:58 06/25/20 10:58 06/25/20 10:58 06/25/20 10:58 General: Oriented x3, Cooperative, Well developed HEENT: Atraumatic, PERRLA Oral: Moist Mucosa Neck: Supple, No JVD Lungs: Clear to auscultation, Normal air movement Cardiovascular: Regular rate, Regular Rhythm Abdomen: Bowel Sounds Present, Soft, Non Tender, No Hepato-splenomegaly Extremities: No clubbing, No edema Skin: Ulcer/ Wound - Great toe healed Wound Measurements and Assessment WC - Nurse 1 - General Ulcer Measurement Start: 06/19/20 11:35 Freq: Status: Active Protocol: Activity Type Activity Date Activity User E-Sign Co-Sign Detail Recorded Client Recorded Date Recorded By Document 06/25/20 10:24 MW [id number] 06/25/20 10:26 MW 06/25/20 10:24 Wound Center Nurse 1 [Ulcer Assessment] #10 right great toe plantar -Combined with other wound No -Current Size (cm) - Length 0.2 -Current Size (cm) - Width 0.2 -Current Size (cm) - Depth 0.1 -Total Square Cm 0.04 -Photo Taken No -Epithelialization Small 1-33% -Tunneling No -Undermining/Tunneling No -Circular Undermining No -Exudate Amt Small -Wound Margin Flat & Intact -Granulation Amt None Present (0 %) -Granulation Quality N/A -Slough/Fibrin Yes -Necrosis Amt Large (67-100%) -Necrotic Tissue Type Adherent Slough -Structure Exposed N/A -Texture (Belle-wound Skin Appearance) No Abnormality, Callus -Moisture (Belle-wound Skin Appearance No Abnormality, ) Assessed -Color (Belle-wound Skin Appearance) No Abnormality, Assessed -Temperature (Belle-wound Skin No Abnormality Appearance) (Pt Warm) -Tenderness on Palpation (Belle-wound No Skin Appearance) -Ulcer Cleansing soap and water -Foul Odor after Cleansing No [Edema Assessment] -Lower Limb Edema Present No WC - Nurse 2 - General Ulcer CM Notes Start: 06/19/20 11:35 Freq: Status: Active Protocol: Activity Type Activity Date Activity User E-Sign Co-Sign Detail Recorded Client Recorded Date Recorded By Document 06/25/20 10:27 MW [id number] 06/25/20 10:30 MW 06/25/20 10:27 Wound Center Nurse 2 [Procedure/Treatment] #10 right great toe plantar -Time 10:27 -Correct Patient Yes -Correct Side, Site, Position Yes -Correct Procedure Yes -Procedure Performed No -Post Debridement (cm) - Length 0 -Post Debridement (cm) - Width 0 -Post Debridement (cm) - Depth 0 -Total Square (Post) (cm) 0 -Wound/Ulcer Outcome Healed- Epithelialized [See Physician Procedure note for Specifics] Pain Scale: 0-10 Numeric [Pain] -Is Patient Pain Free? Yes - Nurse 3 - General Ulcer D/C NN Start: 06/19/20 11:35 Freq: Status: Active Protocol: Activity Type Activity Date Activity User E-Sign Co-Sign Detail Recorded Client Recorded Date Recorded By Document 06/25/20 10:31 MW [id number] 06/25/20 10:31 MW 06/25/20 10:31 Teaching: Wound Center [Wound Center Education] (Items with an * have Printed Materials Available- Please identify what is given to patient under the Teaching materials given to patient and caregiver Section. Discharge Instructions -Person Taught Patient -Teaching Method Discussion -Response to teaching Verbalize understanding Dressing Your Wound -Person Taught Patient -Teaching Method Discussion -Response to teaching Verbalize understanding WC - Visit Discharge [Visit Discharge Information] -Ambulatory Status Ambulatory -Transportation Private Auto -Accompanied by self -Medication Reconcilliation completed No & provided to patient/care provider -Clinical Summary of Care Provided Yes -Notes: healed, discharged from clinic Musculoskeletal: No Tenderness to Palpation of Joints or Extremities Lymphatic: No Cervical, Supraclavicular, or Inguinal Adenopathy Neurological: Cranial nerves II-XII grossly intact, Neuro grossly intact Psych/Mental Status: Normal Affect, Appropriate, Alert and oriented to time, place, person, mood and affect Debridement Note Post-Debridement Measurements/Treatment WC - Nurse 2 - General Ulcer CM Notes Start: 06/19/20 11:35 Freq: Status: Active Protocol: Activity Type Activity Date Activity User E-Sign Co-Sign Detail Recorded Client Recorded Date Recorded By Document 06/25/20 10:27 MW [id number] 06/25/20 10:30 MW 06/25/20 10:27 Wound Center Nurse 2 #10 right great toe plantar -Time 10:27 -Correct Patient Yes -Correct Side, Site, Position Yes -Correct Procedure Yes -Procedure Performed No -Post Debridement (cm) - Length 0 -Post Debridement (cm) - Width 0 -Post Debridement (cm) - Depth 0 -Total Square (Post) (cm) 0 -Wound/Ulcer Outcome Healed- Epithelialized Pain Scale: 0-10 Numeric Is Patient Pain Free? Yes WC - Nurse 3 - General Ulcer D/C NN Start: 06/19/20 11:35 Freq: Status: Active Protocol: Activity Type Activity Date Activity User E-Sign Co-Sign Detail Recorded Client Recorded Date Recorded By Document 06/25/20 10:31 MW [id number] 06/25/20 10:31 MW 06/25/20 10:31 Teaching: Wound Center Discharge Instructions -Person Taught Patient -Teaching Method Discussion -Response to teaching Verbalize understanding Dressing Your Wound -Person Taught Patient -Teaching Method Discussion -Response to teaching Verbalize understanding WC - Visit Discharge Ambulatory Status Ambulatory Transportation Private Auto Accompanied by self Medication Reconcilliation completed & No provided to patient/care provider Clinical Summary of Care Provided Yes Notes: healed, discharged from clinic No debridement was completed today Assessment/Plan Active Problems Diabetic foot ulcer with osteomyelitis (Acute) Diabetic foot ulcer associated with diabetes mellitus due to underlying condition (Acute) Delayed wound healing (Chronic) Diabetes mellitus type II, uncontrolled (Chronic) Assessment: Diabetes, uncontrolled (hemoglobin A1C is over 11%). Ulcer right hallux bone layer exposed (peter grade 3) resolved. osteomyelitis distal phalanx of hallux resolved. Cellulitis and osteomyelitis right foot addressed with oral antibiotics and hyperbaric oxygen therapy resolved. Hallux limitus Plan: Discharge from the wound center and HBO follow-up as needed
== END 2020-07-08 11:11 | disposition home or self-care (01) ==
LOC: WC 08:00
PROVIDERS: PCP Family Medicine; Visit Provider Podiatrist
DX: E11.621 Type 2 diabetes mellitus with foot ulcer (principal); E11.65 Type 2 diabetes mellitus with hyperglycemia; E11.69 Type 2 diabetes mellitus with other specified complication; M86.671 Other chronic osteomyelitis, right ankle and foot; L97.514 Non-pressure chronic ulcer of other part of right foot with necrosis of bone; E11.51 Type 2 diabetes mellitus with diabetic peripheral angiopathy without gangrene; E66.9 Obesity, unspecified; Z72.0 Tobacco use
CPT/HCPCS: 82962; 99183; 99212; G0277; G0463

== ENCOUNTER 2021-06-15 17:32 | Inpatient (IN) | payer BC, SELFPAY ==
[2021-06-15 17:33] VITALS: BP 121/75; PULSE 82; RESP 22; TEMP 36.9; O2SAT 97; BMI 44.8
[2021-06-15 19:55] VITALS: BP 137/96; PULSE 94; RESP 20; O2SAT 98
--- NOTE | 2021-06-15 20:01 | EKG12_ITS ---
Test Reason : EDEMA Blood Pressure : / mmHG Vent. Rate : 084 BPM Atrial Rate : 084 BPM P-R Int : 146 ms QRS Dur : 152 ms QT Int : 418 ms P-R-T Axes : 041 187 027 degrees QTc Int : 493 ms Normal sinus rhythm with sinus arrhythmia Indeterminate axis Right bundle branch block Abnormal ECG Confirmed by JUVENTINO GROVER, ONOFRE ([id number]), graphic editor HOWARD AKHTAR ([id number]) on 06/17/2021 11:29:13 AM Referred By: JEFERSON Confirmed By:ONOFRE JAUREGUI MD
--- NOTE | 2021-06-15 20:08 | EX.ED.DYSGE1 ---
HPI History of Present Illness Chief Complaint: Edema Narrative Narrative: 60-year-old male presenting with. He relates a history of weight gain from 2 78-3 04 over a couple of months. He initially saw Dr. Severino. He followed up with Daphnie Bhatti. He was told he had abnormal LFTs. There was concern for possible CHF as well. Patient was placed on triamterene and lost 10 pounds. He complains of orthopnea but he feels as if it is abdomen which is making him short of breath. He does have shortness of breath with exertion but he still able to get around. He is not having any chest pain. He has not had a fever but he does have a slight cough. On his last visit to see Daphnie Bhatti she performed a chest x-ray two-view which showed a left lower lobe infiltrate and probable effusion. He was placed on Levaquin. He has not had a fever, chills, body aches, loss of taste or smell. He is not vaccinated for COVID-19. Patient denies a history of liver disease. He states that he is diabetic and has no heart issues that he knows of. On his last visit he had lab work drawn which resulted today and he had a BNP of 2384. He came to the ED at the request of his primary care. [facility] Medical History Cellulitis of right foot Chronic ulcer of left foot with fat layer exposed Chronic ulcer of right foot with fat layer exposed Chronic ulcer of right foot with necrosis of bone Delayed wound healing Diabetes Diabetes mellitus type II, uncontrolled Diabetic foot ulcer associated with diabetes mellitus due to underlying condition Diabetic foot ulcer with osteomyelitis Diabetic ulcer of right foot Foot osteomyelitis, right Gangrene Hammer toe of right foot Malnutrition Morbid obesity Non-pressure chronic ulcer of right heel and midfoot with bone involvement without evidence of necrosis Obesity (BMI 30-39.9) Osteomyelitis PVD (peripheral vascular disease) Screening for malignant neoplasm of intestine Skin ulcer Tobacco use Type 1 diabetes mellitus 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 Ulcer of left lower extremity with fat layer exposed Ulcer of right foot with fat layer exposed Ulcer of right foot with necrosis of muscle Ventral incisional hernia without obstruction or gangrene Home Medications insulin aspart U-100 25 units SC TIDCM 02/27/20 [History Last Taken Unknown] semaglutide 0.25 mg SQ QWEEK 05/20/20 [History Last Taken Unknown] insulin degludec 80 unit SQ BID 05/28/20 [History Last Taken Unknown] levofloxacin 500 mg PO DAILY 06/15/21 [History Last Taken Unknown] triamterene 100 mg PO BID 06/15/21 [History Last Taken Unknown] Allergy/AdvReac Type Severity Reaction Status Date / Time No Known Allergies Allergy Verified 06/15/21 17:35 Family History Father Colon cancer Mother Colon cancer Surgical History S/P cataract extraction S/P laparoscopic cholecystectomy Status post amputation of toe Social History Smoking Status: Never smoker alcohol intake: current alcohol intake frequency: a few times a week ROS ROS ED Constitutional Constitutional ED: Denies chills or fever(s) Eyes Eyes: Denies blurry vision or change in vision ENT ENT ED: Denies rhinorrhea or sore throat Cardiovascular Cardiovascular: Reports orthopnea; Denies chest pain or palpitations Respiratory/Chest Respiratory/Chest: Reports cough, dyspnea on exertion and orthopnea Gastrointestinal Gastrointestinal: Reports abdominal pain; Denies nausea or vomiting Genitourinary Genitourinary ED: Denies dysuria or hematuria Musculoskeletal Musculoskeletal: Denies arthralgias or myalgias Integumentary Denies Abrasions or rash Neurologic Neurologic: Denies headache(s) or paresthesias EXAM Physical Exam Const Vital Signs: 06/15/21 17:33 06/15/21 19:55 06/15/21 21:00 Temperature 98.4 F Temperature Source Temporal Pulse Rate 82 94 87 Respiratory Rate 22 H 20 H 17 Respiratory Effort Short of Breath Respiratory Pattern Normal Blood Pressure 121/75 H 137/96 H 118/75 Blood Pressure Mean 90 109 89 Pulse Ox 97 98 97 Oxygen Delivery Method Room Air Room Air Positive well nourished and obese General Appearance ED: NAD; Negative for pallor Nutritional Appearance: obese HEENT Reports moist mucous membranes Negative for trauma Eyes PERRL and EOMs intact bilaterally General Eye ED: Negative for pale conjunctiva or scleral icterus Resp normal respiratory effort and clear to auscultation bilaterally Cardio regular rate and regular rhythm GI GI Narrative: Abdomen is distended with positive fluid wave. Extremity General Extremety ED: Yes edema General Extremity: edema Neuro oriented x3 and CN's II-XII intact bilaterally Sensorium / Orientation: alert Motor Exam: strength 5/5 throughout Psych mental status grossly normal Skin no rashes or lesions noted and no wounds General Skin Exam: Negative for jaundice or pallor MDM MDM MDM Narrative Medical decision making narrative: I was able to bring up patient's previous lab work. His most recent chest x-ray does show a left lower lobe pneumonia and pleural effusion. His hepatic function panel showed that his albumin was low at 3.8 with a normal cutoff of 3.9. His conjugated bilirubin is 0.4 with a normal cutoff of less than 0.2. His total bilirubin is within normal limits at 1.2. AST and ALT were normal alkaline phosphatase 158.. BNP is 2384. PSA was 0.31. His CBC showed a white blood cell count of 5.46, hemoglobin 14.4, hematocrit 46.5, platelets 171 A1c was 8.1. Patient's blood work was reassessed today. He has no leukocytosis and is hemoglobin Hockert are stable. Platelets are normal. Renal function electrolytes are normal. Patient does have a slight elevation in his total bilirubin at 1.3 indirect bilirubin 0.53, alkaline phosphatase 188. Lipase 26. Troponin is 23. Coagulation studies are normal. BNP is elevated at 352. Chest x-ray on my interpretation shows a left pleural effusion. I did obtain a CT abdomen pelvis due to the patient's distended abdomen and this shows subcutaneous edema which is nonspecific in the abdomen. There is ascites as well. Her left pleural effusion is identified. Patient's Covid testing was negative. Patient was discussed with hospitalist out of concern for possible CHF. This could possibly make his LFTs elevated. Patient will be admitted for further treatment. Impression: 1. CHF 2. Elevated LFTs 3. Ascites 4. Subcutaneous edema of the abdomen. Lab Data Attestation: I reviewed the patient's lab results. Labs: Laboratory Results - last 24 hr 06/15/21 06/15/21 06/15/21 20:04 20:04 20:04 WBC 5.5 RBC 5.24 Hgb 14.7 Hct 48.1 MCV 91.8 MCH 28.1 MCHC 30.6 L RDW Std Deviation 57.3 H RDW Coeff of Kylee 17.1 H Plt Count 196 MPV 10.8 Immature Gran % (Auto) 0.400 Neut % (Auto) 70.1 H Lymph % (Auto) 18.1 L Calhoun % (Auto) 8.3 Eos % (Auto) 2.2 Baso % (Auto) 0.9 Absolute Neuts (auto) 3.9 Absolute Lymphs (auto) 1.00 Nucleated RBC % 0 PT INR Sodium 140 Potassium 4.6 Chloride 104 Carbon Dioxide 30.0 Anion Gap 6 BUN 19 H Creatinine 1.05 Estim Creat Clear Calc 74.19 Est GFR (MDRD) Af Amer 93 Est GFR (MDRD) Non-Af 77 BUN/Creatinine Ratio 18.1 Glucose 123 H Calcium 8.8 Total Bilirubin 1.30 H Direct Bilirubin 0.53 H AST 25 ALT 21 Alkaline Phosphatase 188 H Troponin I High Sens 23 B-Natriuretic Peptide Total Protein 7.9 Albumin 3.6 Globulin 4.3 H Lipase 186 06/15/21 06/15/21 20:04 20:04 WBC RBC Hgb Hct MCV MCH MCHC RDW Std Deviation RDW Coeff of Kylee Plt Count MPV Immature Gran % (Auto) Neut % (Auto) Lymph % (Auto) Calhoun % (Auto) Eos % (Auto) Baso % (Auto) Absolute Neuts (auto) Absolute Lymphs (auto) Nucleated RBC % PT 14.5 INR 1.2 Sodium Potassium Chloride Carbon Dioxide Anion Gap BUN Creatinine Estim Creat Clear Calc Est GFR (MDRD) Af Amer Est GFR (MDRD) Non-Af BUN/Creatinine Ratio Glucose Calcium Total Bilirubin Direct Bilirubin AST ALT Alkaline Phosphatase Troponin I High Sens B-Natriuretic Peptide 352.6 H Total Protein Albumin Globulin Lipase Radiography Diagnostic Testing: Radiology Impression Abdomen/Pelvis CT 06/15/21 20:48 Chest X-Ray 06/15/21 20:54 IMPRESSION: There is a left pleural effusion. Electronically Signed: Israel Walls MD at 21:04 EDT , Service support , Discharge Plan Triage Chief Complaint: Edema ED Provider: Venancio Meek Dx/Rx/DC Orders Prescriptions: No Action insulin aspart U-100 100 UNITS/ML insulin pen 25 units SC TIDCM RF: 0 semaglutide 0.25 MG/0.2 ML pen injector 0.25 mg SQ QWEEK RF: 0 insulin degludec 100 UNIT/ML solution 80 unit SQ BID RF: 0 triamterene 100 mg capsule 100 mg PO BID RF: 0 levofloxacin 500 mg Tablet 500 mg PO DAILY RF: 0 Primary Care Provider: Matias Graves
[2021-06-15 20:11] LABS: Absolute Neutrophil Count 3.9 X10^3/uL (2.0-7.7); Basophil# 0.05 X10^3/uL; Basophil% 0.9 % (0-1); Eosinophil# 0.12 X10^3/uL; Eosinophils% 2.2 % (0-5); Hematocrit 48.1 % (40-54); Hemoglobin 14.7 g/dL (13.0-16.5); Lymphocyte % 18.1 % (19-41); Mean Corp Hgb Conc 30.6 g/dL (32-36); Mean Corpuscular Hgb 28.1 pg (27.0-32.0); Mean Corpuscular Volume 91.8 fL (80-94); Mean Platelet Vol. 10.8 fl (6.2-12.0); Monocyte# 0.46 X10^3/uL; Monocyte% 8.3 % (0-10); NRBC Flagged by Analyzer 0 % (0-5); Neutrophil # 3.88 X10^3/uL (2.7-7.7); Neutrophil % 70.1 % (47-70); Platelet Count 196 K/mm3 (150-450); RBC Distribution Width CV 17.1 % (11.6-14.6); RBC Distribution Width SD 57.3 fl (35.1-43.9); Red Blood Count 5.24 M/mm3 (4.6-6.2); White Blood Count 5.5 K/mm3 (4.4-11.0)
[2021-06-15 20:19] LABS: International Normalized Ratio 1.2; Prothrombin Time (Protime)PT. 14.5 SECONDS (11.7-14.9)
[2021-06-15 20:26] LABS: AST(SGOT) 25 U/L (15-37); Alanine Aminotransfer ALT/SGPT 21 U/L (16-61); Albumin, Serum 3.6 g/dL (3.2-5.0); Alkaline Phosphatase 188 U/L (45-117); Bilirubin, Direct 0.53 mg/dL (0.00-0.30); Globulin 4.3 g/dL (2.2-4.2); Protein, Total 7.9 g/dL (6.4-8.2)
[2021-06-15 20:31] LABS: BNP,B-Type NATRIURETIC PEPTIDE 352.6 pg/mL (0-100)
[2021-06-15 20:37] LABS: Anion Gap 6 (5-15); BUN 19 mg/dL (7-18); BUN/Creat Ratio 18.1 RATIO (10-20); Calcium,Total 8.8 mg/dL (8.5-10.1); Chloride 104 mmol/L (98-107); Creatinine, Serum 1.05 mg/dL (0.70-1.30); EST Glomerular Filtration Rate 77 mL/min (>60); Est Glom Filt Rate - Afr Amer 93 mL/min (>60); Estimated Creatinine Clearance 74.19 ml/min; Glucose 123 mg/dL (74-106); Lipase 186 U/L (73-393); Potassium 4.6 mmol/L (3.5-5.1); Sodium Level 140 mmol/L (136-145); Troponin-I HS 23 pg/mL (3.0-78.0)
--- NOTE | 2021-06-15 20:48 | CT_ITS ---
STUDY: CT Abdomen And Pelvis W/ Contrast Injection 06/15/2021 9:04 PM REASON FOR EXAM: Male, 60 years old. ABDOMINAL PAIN abdominal distention TECHNIQUE: Transaxial images were obtained without oral contrast, and without 100 ML OF ISOVUE 370 intravenous contrast. Individualized dose optimization techniques were used for this CT. COMPARISON: None. FINDINGS: There is a left pleural effusion. Heart is enlarged. Normal liver. There is non-visualization of the gallbladder, which may be secondary to either contraction or a prior cholecystectomy. Normal spleen. Normal pancreas. Normal bilateral adrenal glands. 10 mm simple cysts of the right kidney. No follow-up required. No acute findings of the left kidney. Focal wall thickening of the antrum of stomach. This can suggest a gastritis. Normal small intestine. There are multiple colonic diverticula consistent with diverticulosis. There is non-visualization of the appendix. There is a duodenal diverticulum. This is near the pancreatic head. There are calcifications of the abdominal aorta. This is consistent for atherosclerotic disease. There is no abdominal aortic aneurysm. Normal inferior vena cava. Subcentimeter mesenteric lymph nodes. Normal urinary bladder. Nonspecific subcutaneous edema. There is a umbilical hernia containing fat and fluid. There are diffuse degenerative changes of the visualized lumbar spine. IMPRESSION: (NOT LISTED IN ORDER OF SIGNIFICANCE) There is a left pleural effusion. Gastritis. There is a umbilical hernia containing fat and fluid. Ascites. Nonspecific subcutaneous edema There are multiple colonic diverticula consistent with diverticulosis. Other findings as above. Electronically Signed: Israel Walls MD at 21:06 EDT , Service support , CT/Abdomen/Pelvis W IV Cont ONLY
--- NOTE | 2021-06-15 20:54 | RAD_ITS ---
EXAM: XR CHEST, 1 VIEW CLINICAL INDICATION: chest pain TECHNIQUE: Frontal view of the chest. This report was created using [employer] report generation technology. COMPARISON: 03/26/2020 FINDINGS: LUNGS AND PLEURAL SPACES: Unremarkable. No consolidation or edema. No pneumothorax. There is a left pleural effusion. HEART: Heart is enlarged. MEDIASTINUM: Central airways and mediastinal contour are unremarkable. BONES/JOINTS: Unremarkable. SOFT TISSUES: Unremarkable. RAD/Chest 1 View (Portable) IMPRESSION: There is a left pleural effusion. Electronically Signed: Israel Walls MD at 21:04 EDT , Service support ,
[2021-06-15 21:00] VITALS: BP 118/75; PULSE 87; RESP 17; O2SAT 97
--- NOTE | 2021-06-15 22:39 | PCM.HP.STD ---
[facility] - General General Date of Admission: 06/15/21 Date of Service: 06/15/21 Chief Complaint: swelling HPI Narrative OYL SMITH, is a 60 M with a significant history of diabetes mellitus who presents to emergency department with swelling. His symptoms started about 2 months ago. His symptoms started with swelling in his lower extremities that has progressed to his belly. Report that his weight increased from 278pounds to 304 pounds in about 3 months. His PCP put him on triamterene which reduce his weight to 294 pounds. Also he has been on 7 days of Levaquin for pneumonia diagnosed outpatient. He was prescribed total course of 10 days of Levaquin. Associated with symptoms is dry cough; severe fatigue and orthopnea. He denies nocturnal dyspnea. Outside labs showed severely elevated BNP for which patient was asked by outpatient nurse practitioner to come to the emergency department ON LICENSE OF [facility] Medical History Cellulitis of right foot Chronic ulcer of left foot with fat layer exposed Chronic ulcer of right foot with fat layer exposed Chronic ulcer of right foot with necrosis of bone Delayed wound healing Diabetes Diabetes mellitus type II, uncontrolled Diabetic foot ulcer associated with diabetes mellitus due to underlying condition Diabetic foot ulcer with osteomyelitis Diabetic ulcer of right foot Foot osteomyelitis, right Gangrene Hammer toe of right foot Malnutrition Morbid obesity Non-pressure chronic ulcer of right heel and midfoot with bone involvement without evidence of necrosis Obesity (BMI 30-39.9) Osteomyelitis PVD (peripheral vascular disease) Screening for malignant neoplasm of intestine Skin ulcer Tobacco use Type 1 diabetes mellitus 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 Ulcer of left lower extremity with fat layer exposed Ulcer of right foot with fat layer exposed Ulcer of right foot with necrosis of muscle Ventral incisional hernia without obstruction or gangrene Home Medications insulin aspart U-100 25 units SC TIDCM 02/27/20 [History Last Taken Unknown] semaglutide 0.25 mg SQ QWEEK 05/20/20 [History Last Taken Unknown] insulin degludec 40 unit SQ BID 05/28/20 [History Last Taken Unknown] levofloxacin 500 mg PO DAILY 06/15/21 [History Last Taken Unknown] triamterene 100 mg PO BID 06/15/21 [History Last Taken Unknown] Allergy/AdvReac Type Severity Reaction Status Date / Time No Known Allergies Allergy Verified 06/15/21 17:35 Family History Father Colon cancer Mother Colon cancer Surgical History S/P cataract extraction S/P laparoscopic cholecystectomy Status post amputation of toe Social History Smoking Status: Never smoker alcohol intake: current alcohol intake frequency: a few times a week ROS ROS Narrative Constitutional: Reports fatigue and weight gain. Denies fever, chills, and anorexia. Eyes: Denies blurry vision, change in eye color, change in vision, discharge from eye(s), double vision, erythema, eye pain, loss of vision or other HEENT: Denies abnormal hearing, dysphagia, ear pain, epistaxis, headache(s), hearing loss, nasal congestion, nasal discharge, post nasal drip, sinus pressure, sore throat or other Cardiovascular: Reports orthopnea. Denies paroxysmal nocturnal dyspnea. Reports edema. Respiratory/Chest: Reports productive cough. Reports shortness of breath with exertion. Denies wheezing Gastrointestinal: Denies abdominal pain, coffee ground emesis, constipation, diarrhea, dyspepsia, hematemesis, hematochezia, loose stools, melena, nausea, vomiting or other Genitourinary: Denies burning urination, difficulty urinating, dysuria, hematuria, nocturia, urinary frequency, urinary hesitancy, urinary incontinence, urinary urgency or other Musculoskeletal: Denies arthralgias, back pain, joint pain, joint stiffness, joint swelling, myalgias, neck pain or other Neurologic: Denies abnormal gait, abnormal speech, confusion, disequilibrium, dizziness, focal weakness, headache(s), numbness, paresthesias, seizure-like activity, seizures, syncope, tingling, tremor(s) or other Psychiatric: Denies anxiety, depression, homicidal ideation, suicidal ideation or other Endocrinology: Denies change in body appearance, cold intolerance, excessive sweating, heat intolerance, polydipsia, polyuria or other Hematologic/Lymphatic: Denies anemia, easy bleeding, easy bruising, lymphadenopathy or other Integumentary: Reports rashes. Allergic/Immunologic: Denies rhinitis, hives, eczema, asthma or other Vital Signs Vital Signs Vital Signs: 06/15/21 17:33 06/15/21 19:55 06/15/21 21:00 Temperature 98.4 F Temperature Source Temporal Pulse Rate 82 94 87 Respiratory Rate 22 H 20 H 17 Respiratory Effort Short of Breath Respiratory Pattern Normal Blood Pressure 121/75 H 137/96 H 118/75 Blood Pressure Mean 90 109 89 Pulse Ox 97 98 97 Oxygen Delivery Method Room Air Room Air Weight Weight: 133.628 kg Body Mass Index (BMI) 44.8 Physical Exam Narrative Physical exam: General: Well-nourished, well-developed. Head: Normocephalic, atraumatic, no tenderness Eyes: PERRLA, EOMI ENT, no trauma, moist mucous membranes, no rhinorrhea Neck: Nontender, full range of motion, no spinal tenderness, deformities, step-off CVS: Regular rate and rhythm. S1-S2 present. No murmur, gallop or rub. Respiratory : Diminished lung sounds. chest wall nontender. Abdomen: Soft, nontender, nondistended, normal bowel sounds, no masses : Deferred Back: Nontender, no CVA tenderness, no midline spinal tenderness, deformities, step-offs Extremities: Nontender full range of motion, no trauma. 3-4+ edema bilateral lower extremities. Skin: Ulcers and abrasions on extremities Neuro: Alert, oriented, cranial nerves II through XII grossly intact. Psychiatry: Normal mood. Normal affect. Not depressed. Not anxious. Results Lab / Micro Data Result Diagrams: 06/15/21 20:04 06/15/21 20:04 Labs: Laboratory Results - last 24 hr 06/15/21 20:04: Total Bilirubin 1.30 H, Direct Bilirubin 0.53 H, AST 25, ALT 21, Alkaline Phosphatase 188 H, Total Protein 7.9, Albumin 3.6, Globulin 4.3 H 06/15/21 20:04: WBC 5.5, RBC 5.24, Hgb 14.7, Hct 48.1, MCV 91.8, MCH 28.1, MCHC 30.6 L, RDW Std Deviation 57.3 H, RDW Coeff of Kylee 17.1 H, Plt Count 196, MPV 10.8, Immature Gran % (Auto) 0.400, Neut % (Auto) 70.1 H, Lymph % (Auto) 18.1 L, Hubbard % (Auto) 8.3, Eos % (Auto) 2.2, Baso % (Auto) 0.9, Absolute Neuts (auto) 3.9, Absolute Lymphs (auto) 1.00, Nucleated RBC % 0 06/15/21 20:04: Sodium 140, Potassium 4.6, Chloride 104, Carbon Dioxide 30.0, Anion Gap 6, BUN 19 H, Creatinine 1.05, Estim Creat Clear Calc 74.19, Est GFR (MDRD) Af Amer 93, Est GFR (MDRD) Non-Af 77, BUN/Creatinine Ratio 18.1, Glucose 123 H, Calcium 8.8, Troponin I High Sens 23, Lipase 186 06/15/21 20:04: PT 14.5, INR 1.2 06/15/21 20:04: B-Natriuretic Peptide 352.6 H Micro: Microbiology 06/15/21 20:05 Nasal Secretion SARS-CoV-2 Antigen (Rapid) - Final Radiology Impression Abdomen/Pelvis CT 06/15/21 20:48 Chest X-Ray 06/15/21 20:54 IMPRESSION: There is a left pleural effusion. Electronically Signed: Israel Walls MD at 21:04 EDT , Service support , Assessment & Plan Assessment/Plan (1) Morbid obesity: (2) Heart failure: QUALIFIERS: Heart failure chronicity: acute Heart failure type: unspecified Qualified Code(s): I50.9 - Heart failure, unspecified (3) Type 2 diabetes mellitus with diabetic polyneuropathy: QUALIFIERS: Diabetes mellitus residential insulin use: with residential use Qualified Code(s): E11.42 - Type 2 diabetes mellitus with diabetic polyneuropathy; Z79.4 - longterm (current) use of insulin PLAN: Acute on chronic systolic heart failure Echocardiogram on 04/10/2020 showed EF of 45 to 50% Place on monitored bed on a piece Weight on admission to the floor; and then daily Strict I&O's CXR independently reviewed confirms left pleural effusion. I with agree radiologist interpretation. Hold home triamterene. Lasix IV ordered Echo ordered to evaluate LVEF and wall motion Monitor electrolytes and renal function Trend blood pressure Titrate diuretics and heart failure/blood pressure medications with blood pressure. Kerlix roll and alexandra wrap to bilateral lower extremities Fluid restriction of 1500 mls daily cardiac diet Diabetes mellitus Patient with hyperglycemia on presentation Adjust home basal insulin. Accu-Chek QA CHS with correction scale insulin ordered. BMI: 44.4 kilogram per meter square. Complicates care. Lifestyle modification recommended. DVT prophylaxis: Subcutaneous Lovenox ordered Charges/Coding Visit Charges Inpatient E&M: 77523 Init Hosp L3
[2021-06-15 23:41] VITALS: BP 128/80; O2SAT 99
[2021-06-16] VITALS (12 sets, daily range): BP systolic 111–155; BP diastolic 56–90; PULSE 74–83; RESP 16–20; TEMP 36.3–36.9; O2SAT 94–98; BMI 44.3
--- NOTE | 2021-06-16 00:41 | US_ITS ---
STUDY: ABDOMINAL ULTRASOUND - RIGHT UPPER QUADRANT REASON FOR VISIT: Male, 60 years old ascites TECHNIQUE: Ultrasound evaluation of the right upper quadrant was performed with real-time and static schmitt-scale imaging. TECHNICAL QUALITY: Adequate. COMPARISON: None. FINDINGS: Liver: The liver measures 17.5 cm. There is normal echogenicity of the liver. The bile ducts are within normal limits. There is hepatic color flow. The direction of portal flow is hepatopetal. There is no demonstrated mass lesion. Gallbladder: The patient is status post cholecystectomy. Common Bile Duct (C.B.D.): The common bile duct measures 2.6 mm. Pancreas: There is nonvisualization of the pancreas due to overlying bowel gas. Right Kidney: Normal size of the right kidney. The right kidney measures 12.9 cm x 6.1 cm x 5.3 cm. Normal renal cortex. The right cortex measures 1.8 cm. There is no demonstrated renal mass or cyst. There is no right hydronephrosis. US/Liver IMPRESSION: Status post cholecystectomy. Electronically Signed: Jesus Stallworth MD at 11:14 EDT , Service support ,
--- NOTE | 2021-06-16 00:41 | ECHOCS_ITS ---
Reason For Study: CHF Procedure This was a 2D Doppler, Color Flow transthoracic echocardiogram. The study was technically difficult. Contrast injection was performed. Patient had severe flank pain start aprox. 2 min. post Definity. Patient has had Definity in the past with no reaction. Exam performed portable in patient room. Left Ventricle Severely dilated left ventricle. Severe segmental systolic dysfunction (see wall motion). The estimated ejection fraction is 20 %. There is evidence of diastolic dysfunction. Anterio-Basal: Not visualized. Lateral-Basal: Not visualized. Posterior-Basal: Hypokinetic. Infero-Basal: Not visualized. Basal inferoseptal: Not visualized. Basal anteroseptal: Akinetic. Mid-Anterior : Akinetic. Mid-Lateral : Akinetic. Mid-Posterior: Akinetic. Mid-Inferior: Severely Hypokinetic. Mid- inferoseptal : Severly Hypokinetic. Mid-anteroseptal : Akinetic. Anterior Aubrey : Severely Hypokinetic. Inferior Aubrey : Severely Hypokinetic. Lateral Aubrey : Severely Hypokinetic. Septal Aubrey : Hypokinetic. Right Ventricle Moderately dilated right ventricle. Moderate global right ventricular systolic dysfunction. Atria The left atrium is moderately enlarged. The right atrium is mildly enlarged. No doppler evidence for ASD. Mitral Valve There is mild to moderate mitral annular calcification. Attention of the mitral annular calcification onto the base of the posterior mitral valve leaflet. Mild (1+) mitral valve insufficiency. Tricuspid Valve Normal tricuspid valve. Mild tricuspid valve insufficiency. Right ventricular systolic pressure estimated to be 27 mmHg. Aortic Valve Trisinus/trileaflet aortic valve. Mild diffuse aortic valve thickening. Mild focal aortic valve calcification. Pulmonic Valve The pulmonic valve is not well visualized. Trivial pulmonic valve insufficiency. Great Vessels The aortic root is not well visualized. Pericardium/Pleural No pericardial effusion. Medication Diluted definity 2ml given slow IV push to enhance endocardial definition. MMode/2D Measurements & Calculations LVIDd: 6.6 cm IVSd: 1.2 cm LA dimension: 4.9 cm LVIDs: 5.9 cm LVPWd: 1.3 cm FS: 9.8 % LAV(MOD-bp): 84.2 ml LA A4 area: 26.0 cm2 RA A4 area: 21.3 cm2 LAV(MOD-bp) Indexed: 35.0 ml/m2 LAV(MOD-sp2): 71.8 ml LAV(MOD-sp4): 89.6 ml Time Measurements MV dec time: 0.15 sec Doppler Measurements & Calculations MV E max advid: 69.5 cm/sec Lat Peak E' David: 4.5 cm/sec Med Peak E' David: 3.7 cm/sec MV A max david: 30.1 cm/sec E/E' lat: 15.4 E/E' med: 18.6 MV E/A: 2.3 MV V2 max: 105.6 cm/sec MV P1/2t max david: 104.5 cm/sec Ao V2 max: 100.4 cm/sec MV max P.5 mmHg MV P1/2t: 86.0 msec Ao max P.0 mmHg MV V2 mean: 52.0 cm/sec MV dec slope: 355.7 cm/sec2 MV mean P.4 mmHg MV V2 VTI: 27.2 cm MVA(P1/2t): 2.6 cm2 LV V1 max: 57.2 cm/sec PA V2 max: 47.6 cm/sec TR max david: 244.0 cm/sec LV V1 max P.3 mmHg TR max P.0 mmHg ECHO/Echo Complete W/ Contrast Interpretation Summary The study was technically difficult. Contrast injection was performed. Severely dilated left ventricle. Severe segmental systolic dysfunction (see wall motion). The estimated ejection fraction is 20 %. Moderately dilated right ventricle. Moderate global right ventricular systolic dysfunction. The left atrium is moderately enlarged. The right atrium is mildly enlarged. There is mild to moderate mitral annular calcification. Attention of the mitral annular calcification onto the base of the posterior mi tral valve leaflet. Mild (1+) mitral valve insufficiency. Mild tricuspid valve insufficiency. Mild diffuse aortic valve thickening. Mild focal aortic valve calcification. Trivial pulmonic valve insufficiency. Right ventricular systolic pressure estimated to be 27 mmHg. There is evidence of diastolic dysfunction. Ordering Physician: Rohan Melendez Referring Physician: Matias Graves Performed By: Balwinder Ramos RCS
[2021-06-16] MEDS: 0.9% Saline Lock 10 ML Syringe IV ×3 (00:53→17:26)
[2021-06-16] MEDS: Furosemide 40 MG/4 ML Vial IV ×3 (00:53→17:11)
--- NOTE | 2021-06-16 00:53 | PCS.PANDOC ---
PANDEMIC DOCUMENTATION INITIATED: Date: 05/04/2021 Time: 190
[2021-06-16 07:29] LABS: ALB/GLOB Ratio 0.8 RATIO (0.9-2.4); AST(SGOT) 23 U/L (15-37); Alanine Aminotransfer ALT/SGPT 16 U/L (16-61); Albumin, Serum 3.4 g/dL (3.2-5.0); Alkaline Phosphatase 149 U/L (45-117); Anion Gap 4 (5-15); BUN 17 mg/dL (7-18); Calcium,Total 8.9 mg/dL (8.5-10.1); Chloride 105 mmol/L (98-107); Creatinine, Serum 0.85 mg/dL (0.70-1.30); EST Glomerular Filtration Rate 98 mL/min (>60); Est Glom Filt Rate - Afr Amer 119 mL/min (>60); Estimated Creatinine Clearance 91.65 ml/min; Glucose 50 mg/dL (74-106); Potassium 3.7 mmol/L (3.5-5.1); Protein, Total 7.4 g/dL (6.4-8.2); Sodium Level 140 mmol/L (136-145)
[2021-06-16 09:01] LABS: Bedside Glucose 72 mg/dL (70-110)
--- NOTE | 2021-06-16 11:17 | CASEMGMT ---
KIKA ROD assessment: Face to Face with patient for initial transition planning/care coordination assessment. KIKA ROD introduced self and role at [facility], pt voices understanding and consents to assessment. Pt is sitting up in chair in no distress on room air. Pt is A/Ox4 and answers questions appropriately. Care providers, pharmacy, and demographics verified. Presentation: Pt sent by for water retention Admitting dx: Acute HF PCP: [facility] Specialists: NANCY Ashby eye Preferred Pharmacy: [facility] Insurance: [place] Prescription Benefit: [place] Living Will/HPOA: Pt states has LW/HPOA and is aware that they are not on file at [facility]. Pt states his , Teena Moralez, is HPOA. LNOK: Teena Barros, Living Arrangements: Pt states lives with in 2 story home and states no concerns at home. Pt is independent with ADL's. Transportation: Pt states drives self and states no transportation concerns. DME/HHC: Pt states has a cane and states no need for any further DME. Pt states has had HHC in the past for wound care and states no hx of SNF. Pt states no concerns with going home at time of discharge. Pt works [employer]. Pt states does not smoke cigarettes but does occasionally drink ETOH. Pt states no further concerns/needs. CM to follow for any further discharge planning/needs. Advised pt to ask for CM if any further questions/concerns/needs arise, voices understanding. Pt Goal: Home Plan: [place] KIKA ROD
[2021-06-16] MEDS: Glucerna Shake 120 ML LIQUID PO (11:25)
[2021-06-16 12:05] LABS: Bedside Glucose 76 mg/dL (70-110)
[2021-06-16 13:25] LABS: D-Dimer Quantitative (DVT/PE) 4.53 FEU/ug/m (0.27-0.49)
--- NOTE | 2021-06-16 13:59 | VDLE_ITS ---
Reason For Study: elevated D-Dimer RIGHT LEFT GSV is normal. GSV is normal. CFV is compressible, spontaneous, phasic, CFV is compressible, spontaneous, phasic, competent and demonstrates normal competent, and demonstrates normal augmentation. augmentation. FV is compressible, spontaneous, phasic, FV is compressible, spontaneous, phasic, competent and demonstrates normal competent and demonstrates normal augmentation. augmentation. POP V is compressible, spontaneous, phasic, POP V is compressible, spontaneous, phasic, competent and demonstrates normal competent and demonstrates normal augmentation. augmentation. T/P Trunk is compressible. T/P Trunk is compressible. PTV is compressible. PTV is compressible. RT PerV is compressible. LT PerV is compressible. Procedure This is a venous duplex using B-mode, color flow and spectral Doppler. Exam performed portable in patient room. The exam was diagnostic. A preliminary report was called and/or faxed to Alma Martin. VL/Venous Duplex US - Marlon Extrem Interpretation Summary No evidence for acute deep venous thrombosis bilateral lower extremities with p atent and compressible bilateral great saphenous veins. Ordering Physician: Alma Martin Performed By: Eduardo Hunt RVT
--- NOTE | 2021-06-16 14:47 | PCM.PN.HOSP ---
Documented by User: Alma Martin NP, SENIOR ENGINEERING TECHNICIAN-C 06/16/21 15:16 Subjective Subjective Patient seen and examined. Denies shortness of breath at rest however states he has shortness of breath with lying down and exertion. Reports lower extremity and abdominal swelling. States his weight is closer to baseline. Objective Data Objective Data Vital Signs: Vital Signs Temp Pulse Resp BP Pulse Ox 98.2 F 81 18 131/81 H 97 06/16/21 11:41 06/16/21 11:41 06/16/21 11:41 06/16/21 11:41 06/16/21 11:41 Oxygen Delivery Method Room Air Weight: 291 lb 14.272 oz Body Mass Index (BMI) 44.3 Intake & Output: Intake and Output for Last 24 Hours 06/14/21 06/15/21 06/16/21 23:59 23:59 23:59 Intake Total 480 / 480 Output Total 3650 / 3650 Balance -3170 / -3170 Lab / Micro Data Result Diagrams: 06/15/21 20:04 06/16/21 05:50 Labs: Laboratory Results - last 24 hr 06/15/21 20:04: Total Bilirubin 1.30 H, Direct Bilirubin 0.53 H, AST 25, ALT 21, Alkaline Phosphatase 188 H, Total Protein 7.9, Albumin 3.6, Globulin 4.3 H 06/15/21 20:04: WBC 5.5, RBC 5.24, Hgb 14.7, Hct 48.1, MCV 91.8, MCH 28.1, MCHC 30.6 L, RDW Std Deviation 57.3 H, RDW Coeff of [place]e 17.1 H, Plt Count 196, MPV 10.8, Immature Gran % (Auto) 0.400, Neut % (Auto) 70.1 H, Lymph % (Auto) 18.1 L, [place] % (Auto) 8.3, Eos % (Auto) 2.2, Baso % (Auto) 0.9, Absolute Neuts (auto) 3.9, Absolute Lymphs (auto) 1.00, Nucleated RBC % 0 06/15/21 20:04: Sodium 140, Potassium 4.6, Chloride 104, Carbon Dioxide 30.0, Anion Gap 6, BUN 19 H, Creatinine 1.05, Estim Creat Clear Calc 74.19, Est GFR (MDRD) Af Amer 93, Est GFR (MDRD) Non-Af 77, BUN/Creatinine Ratio 18.1, Glucose 123 H, Calcium 8.8, Troponin I High Sens 23, Lipase 186 06/15/21 20:04: PT 14.5, INR 1.2 06/15/21 20:04: B-Natriuretic Peptide 352.6 H 06/16/21 05:50: Sodium 140, Potassium 3.7, Chloride 105, Carbon Dioxide 31.0, Anion Gap 4 L, BUN 17, Creatinine 0.85, Estim Creat Clear Calc 91.65, Est GFR (MDRD) Af Amer 119, Est GFR (MDRD) Non-Af 98, BUN/Creatinine Ratio 20.0, Glucose 50 L, Calcium 8.9, Total Bilirubin 1.70 H, AST 23, ALT 16, Alkaline Phosphatase 149 H, Total Protein 7.4, Albumin 3.4, Globulin 4.0, Albumin/Globulin Ratio 0.8 L 06/16/21 08:22: POC Glucose 72 06/16/21 11:23: POC Glucose 76 06/16/21 12:52: D-Dimer Quant (PE/DVT) 4.53 H* Micro: Microbiology 06/15/21 20:05 Nasal Secretion SARS-CoV-2 Antigen (Rapid) - Final Radiography Diagnostic Testing: Radiology Impression Abdomen/Pelvis CT 06/15/21 20:48 Chest X-Ray 06/15/21 20:54 IMPRESSION: There is a left pleural effusion. Electronically Signed: Israel Walls MD at 21:04 EDT , Service support , Echocardiogram 06/16/21 00:41 Interpretation Summary The study was technically difficult. Contrast injection was performed. Severely dilated left ventricle. Severe segmental systolic dysfunction (see wall motion). The estimated ejection fraction is 20 %. Moderately dilated right ventricle. Moderate global right ventricular systolic dysfunction. The left atrium is moderately enlarged. The right atrium is mildly enlarged. There is mild to moderate mitral annular calcification. Attention of the mitral annular calcification onto the base of the posterior mitral valve leaflet. Mild (1+) mitral valve insufficiency. Mild tricuspid valve insufficiency. Mild diffuse aortic valve thickening. Mild focal aortic valve calcification. Trivial pulmonic valve insufficiency. Right ventricular systolic pressure estimated to be 27 mmHg. There is evidence of diastolic dysfunction. Ordering Physician: Rohan Melendez Referring Physician: Matias Graves Performed By: Balwinder Ramos RCS Liver Ultrasound 06/16/21 00:41 IMPRESSION: Status post cholecystectomy. Electronically Signed: Jesus Stallworth MD at 11:14 EDT , Service support , Physical Exam Const alert, oriented x3 and no apparent distress Orientation / Consciousness: awake, oriented to person, oriented to place and oriented to time HEENT normocephalic and moist oral mucous membranes Eyes PERRL, EOMs intact bilaterally and conjunctivae normal Neck no lymphadenopathy Resp normal respiratory effort and clear to auscultation bilaterally Cardio regular rate, regular rhythm and no murmurs Peripheral Pulses: pulses 2+ throughout GI normal to inspection, nondistended, normoactive bowel sounds, non-tender and non-distended Extremity normal to inspection General Extremity: edema bilateral lower extremity Skin no rashes or lesions noted Lesions: no lesions Rashes: no rashes Trauma: no lacerations or abrasions Neuro CN's II-XII intact bilaterally, no focal motor deficits, no sensory deficits noted and deep tendon reflexes 2+ bilaterally Psych mental status grossly normal and affect normal Assessment & Plan Assessment/Plan (1) Heart failure: QUALIFIERS: Heart failure chronicity: acute Heart failure type: unspecified Qualified Code(s): I50.9 - Heart failure, unspecified PLAN: 1. Acute on chronic heart failure with reduced ejection fraction-BNP 352. Chest x-ray with left pleural effusion. Previous echocardiogram 04/11/2020 demonstrated an EF of 45 to 50%, stage I diastolic dysfunction. Repeat echocardiogram demonstrates an EF of 20%. D-dimer elevated, lower extremity Doppler negative for DVT. Troponin negative. Consult cardiology for further coronary evaluation given significantly reduced EF. 2. Type 2 diabetes mellitus with peripheral neuropathy-hemoglobin A1c February 2020 11.3%. Will repeat hemoglobin A1c. Accu-Cheks with sliding scale insulin. Continue home insulin regimen. 3. PAD-previous arterial studies March 2020 with evidence of arterial calcifications at ankle level bilaterally. Moderate impairment of arterial flow at the digital level on the right. 4. Morbid obesity-encouraged diet and lifestyle modifications. DVT prophylaxis- Lovenox sc This patient was seen by GARETH Saleh under the supervision of Dr. Alexander. Documented by User: Dr. Pete Alexander MD 06/16/21 17:14 Objective Data Lab / Micro Data Result Diagrams: 06/15/21 20:04 06/16/21 05:50 Charges/Coding Addendum Addendum: Dr. Alexander: I personally reviewed the chart and examined the patient, and agree with the above findings. 60-year-old male with a previous history of reduced ejection fraction 45 to 50% with stage I diastolic dysfunction presents with shortness of breath and leg swelling has been worsening over the last several months. He did have an elevated D-dimer and CT of the chest was negative, venous duplex is pending. Echo demonstrates a severely reduced EF at 20% with left ventricular dilatation. Cardiology will be consulted, will continue with his Lasix. Since he started Lasix, he is down about 3 L. Visit Charges Inpatient E&M: 55290 Subs Hosp L2
--- NOTE | 2021-06-16 15:16 | CT_ITS ---
STUDY: CTA CHEST REASON FOR EXAM: Male, 60 years old. Elevated d dimer RADIATION DOSAGE (If Supplied By Facility): CTDIvol = ( 17.41 ) mGy, DLP = ( 561.52 ) mGycm TECHNIQUE: The examination was performed with the intravenous administration of 100mL Isovue-370. Post-processing of the angiographic images was performed, with multiplanar reformation and 3D reconstruction. Individualized dose optimization techniques were used for this CT. COMPARISON: Chest x-ray June 15, 2021 FINDINGS: Normal enhancement of the main pulmonary artery and right and left pulmonary arteries. Normal enhancement of the bilateral peripheral pulmonary arteries. There is no demonstrated pulmonary embolism. There is atherosclerotic calcification of the aortic arch. There is no demonstrated aortic dissection. There are calcifications of the coronary arteries. Normal mediastinum. Normal hilar regions. Normal visualized trachea and bronchi. The lungs are well expanded. Left lower lung atelectasis. There is a moderate volume left sided pleural effusion. Normal chest wall structures. Normal osseous structures. Normal visualized upper abdomen. CT/CTA Chest W/WO Contrast IMPRESSION: CTA chest examination, without a demonstrated pulmonary embolism or arterial dissection. Left pleural effusion. Left lower lung atelectasis. Electronically Signed: Leonel Rodriguez MD at 16:42 EDT , Service support ,
--- NOTE | 2021-06-16 15:22 | CASEMGMT ---
According to the [facility] website, the following are in-network tertiary facilities: [facility], [facility], [facility], [facility], [facility], [facility], [facility], and . Tung ANAND CM
[2021-06-16 16:08] LABS: Hemoglobin A1c 7.8 % (3.8-5.6)
[2021-06-16] MEDS: Insulin Lispro 100 UNIT/ML INSULN.PEN 10 UNIT SC (17:22)
[2021-06-16] MEDS: Insulin Lispro 100 UNIT/ML INSULN.PEN SC (17:24)
[2021-06-16 17:25] LABS: Bacteria 0 SEEN /hpf (None Seen); Mucous, Urine 0 SEEN /hpf (<or=2+); Squamous Epithelial Cells - UA 0 SEEN /hpf (0-5)
[2021-06-16 17:30] LABS: Color, Urine Yellow (Yellow); Glucose, Dipstick Normal (Normal); Ketone-Dipstick Negative (Negative); Leukocyte Esterase-Dipstick 100 /ul (Negative); Nitrite-Dipstick Negative (Negative); Occult Blood-Urine 150 /ul (Negative); Protein-Dipstick Negative (Negative); Urine Bilirubin Dipstick Negative (Negative); Urine Clarity Clear (Clear); Urine Urobilinogen 1 mg/dl (Normal)
[2021-06-16 17:50] LABS: Red Blood Cells-Urine 0-5 SEEN /hpf (0-5); White Blood Cells 0-5 SEEN /hpf (0-5)
[2021-06-16 18:10] LABS: Bedside Glucose 175 mg/dL (70-110)
--- NOTE | 2021-06-16 21:33 | CON.PCM.CA_ITS ---
Assessment & Plan Assessment/Plan (1) Heart failure: QUALIFIERS: Heart failure type: unspecified Heart failure chronicity: acute Qualified Code(s): I50.9 - Heart failure, unspecified PLAN: The patient does have findings compatible with what appears to be acute on chronic systolic mediated CHF. The same time there is concerned that he also has an element of right heart failure based upon his echocardiographic findings. Thus he would have biventricular heart failure. At the present time he is continuing medical therapy. His medication therapy can be optimized by the addition of beta-blockers, additional diuretics such as spironolactone, and afterload reducing agents. Ideally once he has had symptomatic improvement it would be reasonable to further evaluate him in the cardiac catheterization laboratory to assist with additional diagnosis and care. (2) Cardiomyopathy: PLAN: Again the patient has findings compatible with an underlying cardiomyopathy. It is unclear at this time whether there is a component of coronary artery disease contributing to it. As the patient is at risk for coronary artery disease based upon his previous diagnosis of diabetes mellitus and peripheral vascular disease it would not be unreasonable once he has had medical management and improvement in his overall status to consider further evaluation with diagnostic cardiac catheterization. This would be to evaluate for underlying CAD that would warrant revasculari zation therapy above and beyond medical management. (3) PVD (peripheral vascular disease): PLAN: The patient reports a history of peripheral vascular disease. The details are unknown at this time. This may be based on his history of diabetes mellitus. (4) Diabetes mellitus type II, uncontrolled: PLAN: The patient admits his diabetes is not well controlled. He acknowledges that this is contributed to his right foot fifth digit amputation. Addt'l Comments Overall, at the present time, the patient will continue observation and medical therapy. An attempt will be made to optimize his medical therapy. As his clinical course improves consideration can be given to further evaluation with diagnostic cardiac catheterization. The patient states that he will consider his options. This note was generated using a voice recognition system and there may be inco rrect words, spelling or punctuation that were not noted when reviewing the office note prior to saving. HPI Consult Data Date of Consult: 06/16/21 HPI Narrative HPI Narrative: OLY SMITH, is a 60 year old white male who presents for cardiovascular consultation based upon concerns of clinical course compatible with congestive heart failure and an abnormal transthoracic echocardiogram compatible with an underlying cardiomyopathy (etiology unclear at this time: Ischemic versus nonischemic) superimposed upon a history of peripheral vascular disease thought secondary to diabetes mellitus. The patient states that for quite some time now he has felt somewhat more short of breath and dyspneic but this is progressed recently. He does describe symptoms at home compatible with orthopnea. He has had increasing abdominal girth and increasing bilateral lower extremity peripheral pitting edema. He does not recall any ongoing chest discomfort nor does he recall any episodes of near syncope or syncope. 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 He notes that in the past he has had issues with peripheral vascular disease and diabetes mellitus. He states this led to a right foot fifth digit amputation and almost a right foot great toe amputation. Based upon his ongoing concerns he presented to the emergency department for further evaluation. He states that he had been treated with antibiotic therapy but was not improving. In the emergency department he was found to have a negative troponin I level. His BNP level was elevated at 352.6. He had a chest x-ray that was reported as demonstrating a left-sided pleural effusion. He was placed in the PCU for further evaluation and care. He was started on medical therapy with IV diuresis. He states since being in the hospital he believes he is already lost approximately 23 pounds. He has also undergone further evaluation with a transthoracic echocardiogram with the findings as noted below. He had a chest CTA performed which demonstrated no great vessel disease or thromboembolic disease but did demonstrate a left pleural effusion. He has been referred for further cardiovascular consultation with consideration for diagnostic cardiac catheterization. [facility] Medical History (Updated 06/16/21 @ 21:[address] Gustavo Wallace MD) Cardiomyopathy Cellulitis of right foot Chronic ulcer of left foot with fat layer exposed Chronic ulcer of right foot with fat layer exposed Chronic ulcer of right foot with necrosis of bone Delayed wound healing Diabetes Diabetes mellitus type II, uncontrolled Diabetic foot ulcer associated with diabetes mellitus due to underlying condition Diabetic foot ulcer with osteomyelitis Diabetic ulcer of right foot Foot osteomyelitis, right Gangrene Hammer toe of right foot Malnutrition Morbid obesity Non-pressure chronic ulcer of right heel and midfoot with bone involvement without evidence of necrosis Obesity (BMI 30-39.9) Osteomyelitis PVD (peripheral vascular disease) Screening for malignant neoplasm of intestine Skin ulcer Tobacco use Type 1 diabetes mellitus 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 Ulcer of left lower extremity with fat layer exposed Ulcer of right foot with fat layer exposed Ulcer of right foot with necrosis of muscle Ventral incisional hernia without obstruction or gangrene Home Medications insulin aspart U-100 25 units SC TIDCM 02/27/20 [History Last Taken Unknown] semaglutide 0.25 mg SQ QWEEK 05/20/20 [History Last Taken Unknown] insulin degludec 40 unit SQ BID 05/28/20 [History Last Taken Unknown] levofloxacin 500 mg PO DAILY 06/15/21 [History Last Taken Unknown] triamterene 100 mg PO BID 06/15/21 [History Last Taken Unknown] Allergy/AdvReac Type Severity Reaction Status Date / Time No Known Allergies Allergy Verified 06/15/21 17:35 Family History Father Colon cancer Mother Colon cancer Surgical History S/P cataract extraction S/P laparoscopic cholecystectomy Status post amputation of toe Social History Smoking Status: Never smoker alcohol intake: current alcohol intake frequency: a few times a week ROS Constitutional Constitutional: Reports as per HPI Eyes Eyes: Reports as per HPI ENT HEENT: Reports as per HPI Cardiovascular Cardiovascular: Reports dyspnea, dyspnea at rest, dyspnea on exertion, leg edema and orthopnea Respiratory/Chest Respiratory/Chest: Reports dyspnea and dyspnea on exertion Gastrointestinal Gastrointestinal: Reports as per HPI Genitourinary Genitourinary: Reports as per HPI Musculoskeletal Musculoskeletal: Reports as per HPI Neurologic Neurologic: Reports as per HPI Physical Exam Const alert, oriented x3 and no apparent distress Orientation / Consciousness: awake HEENT normocephalic, head/scalp atraumatic and hearing grossly normal bilaterally Eyes PERRL, EOMs intact bilaterally and conjunctivae normal Neck full ROM, supple and no JVD Resp Auscultation: diminished lung sounds bilateral (Bases) Cardio regular rate, regular rhythm, S1 normal heart sound and S2 normal heart sound Cardio Narrative: Diminished heart tones GI normal to inspection, nondistended, normoactive bowel sounds Extremity General Extremity: edema bilateral lower extremity (Wearing bilateral Augustus wraps) Details: severe Neuro oriented x3, moves all extremities, no focal motor deficits and no sensory deficits noted Psych mental status grossly normal Objective Data Vital Signs: Vital Signs Temp Pulse Resp BP Pulse Ox 98.4 F 79 16 155/63 H 95 06/16/21 16:14 06/16/21 19:05 06/16/21 16:14 06/16/21 16:14 06/16/21 16:14 Oxygen Delivery Method Room Air Weight: 291 lb 14.272 oz Body Mass Index (BMI) 44.3 Intake & Output: Intake and Output for Last 24 Hours 06/14/21 06/15/21 06/16/21 23:59 23:59 23:59 Intake Total 860 / 860 Output Total 6220 / 6220 Balance -5360 / -5360 Lab / Micro Data Result Diagrams: 06/15/21 20:04 06/16/21 05:50 Labs: Laboratory Results - last 24 hr 06/16/21 05:50: Sodium 140, Potassium 3.7, Chloride 105, Carbon Dioxide 31.0, Anion Gap 4 L, BUN 17, Creatinine 0.85, Estim Creat Clear Calc 91.65, Est GFR (M DRD) Af Amer 119, Est GFR (MDRD) Non-Af 98, BUN/Creatinine Ratio 20.0, Glucose 50 L, Calcium 8.9, Total Bilirubin 1.70 H, AST 23, ALT 16, Alkaline Phosphatase 149 H, Total Protein 7.4, Albumin 3.4, Globulin 4.0, Albumin/Globulin Ratio 0.8 L 06/16/21 05:55: Hemoglobin A1c 7.8 H 06/16/21 08:22: POC Glucose 72 06/16/21 11:23: POC Glucose 76 06/16/21 12:52: D-Dimer Quant (PE/DVT) 4.53 H* 06/16/21 16:59: POC Glucose 175 H 06/16/21 17:15: Urine Color Yellow, Urine Clarity Clear, Urine pH 7.0, Ur Specif ic [place] 1.010, Urine Protein Negative, Urine Glucose (UA) Normal, Urine Ketones Negative, Urine Occult Blood 150 H, Urine Nitrite Negative, Urine Bilirubin Negative, Urine Urobilinogen 1 H, Ur Leukocyte Esterase 100 H, Urine RBC 0-5 SEEN, Urine WBC 0-5 SEEN, Ur Squamous Epith Cells 0 SEEN, Urine Bacteria 0 SEEN, Urine Mucus 0 SEEN Micro: Microbiology 06/15/21 20:05 Nasal Secretion SARS-CoV-2 Antigen (Rapid) - Final Cardiology Labs/Tests 06/16/21 05:50: Sodium 140, Potassium 3.7, Chloride 105, Carbon Dioxide 31.0, Anion Gap 4 L, BUN 17, Creatinine 0.85, Est GFR (MDRD) Af Amer 119, Est GFR (MDRD) Non-Af 98, BUN/Creatinine Ratio 20.0, Glucose 50 L, Calcium 8.9, Total Bilirubin 1.70 H 06/16/21 05:55: Hemoglobin A1c 7.8 H 06/16/21 12:52: D-Dimer Quant (PE/DVT) 4.53 H* 06/16/21 17:15: Urine Color Yellow, Urine Clarity Clear, Urine pH 7.0, Ur Specific [place] 1.010, Urine Protein Negative, Urine Glucose (UA) Normal, Urine Ketones Negative, Urine Occult Blood 150 H, Urine Nitrite Negative, Urine Bilirubin Negative, Urine Urobilinogen 1 H, Ur Leukocyte Esterase 100 H, Urine RBC 0-5 SEEN, Urine WBC 0-5 SEEN Rhythm: Sinus rhythm EKG: Sinus rhythm; right bundle branch block ECHO: 04-10-2020 Interpretation Summary The estimated ejection fraction is 45-50 %. [place] : Hypokinetic. Mild (1+) mitral valve insufficiency. Mild diffuse aortic valve thickening. Stage 1 diastolic dysfunction. The study was technically difficult. Contrast injection was performed. Radiography Diagnostic Testing: Radiology Impression Echocardiogram 06/16/21 00:41 Interpretation Summary The study was technically difficult. Contrast injection was performed. Severely dilated left ventricle. Severe segmental systolic dysfunction (see wall motion). The estimated ejection fraction is 20 %. Moderately dilated right ventricle. Moderate global right ventricular systolic dysfunction. The left atrium is moderately enlarged. The right atrium is mildly enlarged. There is mild to moderate mitral annular calcification. Attention of the mitral annular calcification onto the base of the posterior mitral valve leaflet. Mild (1+) mitral valve insufficiency. Mild tricuspid valve insufficiency. Mild diffuse aortic valve thickening. Mild focal aortic valve calcification. Trivial pulmonic valve insufficiency. Right ventricular systolic pressure estimated to be 27 mmHg. There is evidence of diastolic dysfunction. Ordering Physician: Rohan Melendez Referring Physician: Matias Graves Performed By: Balwinder Ramos RCS Liver Ultrasound 06/16/21 00:41 IMPRESSION: Status post cholecystectomy. Electronically Signed: Jesus Stallworth MD at 11:14 EDT , Service support , Venous Doppler Study 06/16/21 13:59 Interpretation Summary No evidence for acute deep venous thrombosis bilateral lower extremities with patent and compressible bilateral great saphenous veins. Ordering Physician: Alma Martin Performed By: Eduardo Hunt, RVT Chest CTA 06/16/21 15:16 IMPRESSION: CTA chest examination, without a demonstrated pulmonary embolism or arterial dissection. Left pleural effusion. Left lower lung atelectasis. Electronically Signed: Leonel Rodriguez MD at 16:42 EDT , Service support ,
--- NOTE | 2021-06-16 22:00 | NURSING ---
Pt made aware several new medications are to be started this evening to help with his heart failure. Pt states he was not aware of new medications and is very hesitant to start them. Pt educated on each medication and purpose. He is unwilling to take these medications at this time. States wants to research them and speak with a physician before beginning them. Pt given multiple forms of printed education on each medication as well as cardiac medications and classifications.
--- NOTE | 2021-06-16 22:32 | PCS.PANDOC ---
PANDEMIC DOCUMENTATION INITIATED: Date: 05/04/2021 Time: 190
[2021-06-16 22:41] LABS: Bedside Glucose 119 mg/dL (70-110)
[2021-06-17] VITALS (10 sets, daily range): BP systolic 109–134; BP diastolic 59–94; PULSE 70–86; RESP 15–20; TEMP 36.6–37; O2SAT 95–98
[2021-06-17 04:21] LABS: Bedside Glucose 70 mg/dL (70-110)
[2021-06-17 06:44] LABS: Anion Gap 7 (5-15); BUN 23 mg/dL (7-18); BUN/Creat Ratio 25.5 RATIO (10-20); Calcium,Total 8.7 mg/dL (8.5-10.1); Chloride 101 mmol/L (98-107); Cholesterol 97 mg/dL (200); EST Glomerular Filtration Rate 92 mL/min (>60); Est Glom Filt Rate - Afr Amer 111 mL/min (>60); Estimated Creatinine Clearance 86.56 ml/min; Glucose 135 mg/dL (74-106); High Density Lipoprotein 42 mg/dL; Potassium 3.9 mmol/L (3.5-5.1); Sodium Level 137 mmol/L (136-145); Triglycerides 77 mg/dL; Very Low Density Lipoprotein 15 mg/dL (5-40)
[2021-06-17 07:20] LABS: Bedside Glucose 112 mg/dL (70-110)
--- NOTE | 2021-06-17 09:26 | PN.CARD_ITS ---
Subjective Subjective The patient has been up and ambulating. He states overall he feels much better since his diuresis. He also states he has been reading about cardiovascular medications. He states he does not want to take medication such as beta- blockers or afterload reducing agents because of concerns of potential side effects including concerns of potential hepatic side effects. He states his was on a beta-german and subsequently had hepatic dysfunction which he believes she was told was related to her beta-german. He states there have been other sllied medical people that he knows such as nurses at other [facility] that have told him to avoid beta-blockers because of adverse side effects. He also states he does not want to undergo further invasive evaluation such as diagnostic cardiac catheterization which would be used to assist in his diagnosis and care. He states he does not believe he has any cardiovascular disease such as CAD. He believes besides diuretics his other therapy would be a change of lifestyle. Objective Data Vital Signs: Vital Signs Temp Pulse Resp BP Pulse Ox 98.3 F 83 16 134/90 H 95 06/17/21 08:15 06/17/21 08:15 06/17/21 08:15 06/17/21 08:15 06/17/21 07:25 Oxygen Delivery Method Room Air Weight: 287 lb Body Mass Index (BMI) 44.3 Intake & Output: Intake and Output for Last 24 Hours 06/15/21 06/16/21 06/17/21 23:59 23:59 23:59 Intake Total 1060 / 1060 120 / 120 Output Total 7120 / 7120 800 / 800 Balance -6060 / -6060 -680 / -680 Lab / Micro Data Result Diagrams: 06/15/21 20:04 06/17/21 05:56 Labs: Laboratory Results - last 24 hr 06/16/21 05:55: Hemoglobin A1c 7.8 H 06/16/21 11:23: POC Glucose 76 06/16/21 12:52: D-Dimer Quant (PE/DVT) 4.53 H* 06/16/21 16:59: POC Glucose 175 H 06/16/21 17:15: Urine Color Yellow, Urine Clarity Clear, Urine pH 7.0, Ur Specific Lane 1.010, Urine Protein Negative, Urine Glucose (UA) Normal, Urine Ketones Negative, Urine Occult Blood 150 H, Urine Nitrite Negative, Urine Marlon irubin Negative, Urine Urobilinogen 1 H, Ur Leukocyte Esterase 100 H, Urine RBC 0-5 SEEN, Urine WBC 0-5 SEEN, Ur Squamous Epith Cells 0 SEEN, Urine Bacteria 0 SEEN, Urine Mucus 0 SEEN 06/16/21 22:09: POC Glucose 119 H 06/17/21 04:13: POC Glucose 70 06/17/21 05:56: Sodium 137, Potassium 3.9, Chloride 101, Carbon Dioxide 29.0, Anion Gap 7, BUN 23 H, Creatinine 0.90, Estim Creat Clear Calc 86.56, Est GFR (MDRD) Af Amer 111, Est GFR (MDRD) Non-Af 92, BUN/Creatinine Ratio 25.5 H, Glucose 135 H, Calcium 8.7, Triglycerides 77, Cholesterol 97, LDL Cholesterol 40, VLDL Cholesterol 15, HDL Cholesterol 42 06/17/21 07:00: POC Glucose 112 H Cardiology Labs/Tests 06/16/21 05:55: Hemoglobin A1c 7.8 H 06/16/21 12:52: D-Dimer Quant (PE/DVT) 4.53 H* 06/16/21 17:15: Urine Color Yellow, Urine Clarity Clear, Urine pH 7.0, Ur Specific Lane 1.010, Urine Protein Negative, Urine Glucose (UA) Normal, Urine Ketones Negative, Urine Occult Blood 150 H, Urine Nitrite Negative, Urine Bilirubin Negative, Urine Urobilinogen 1 H, Ur Leukocyte Esterase 100 H, Urine RBC 0-5 SEEN, Urine WBC 0-5 SEEN 06/17/21 05:56: Sodium 137, Potassium 3.9, Chloride 101, Carbon Dioxide 29.0, Anion Gap 7, BUN 23 H, Creatinine 0.90, Est GFR (MDRD) Af Amer 111, Est GFR (MDRD) Non-Af 92, BUN/Creatinine Ratio 25.5 H, Glucose 135 H, Calcium 8.7, Triglycerides 77, Cholesterol 97, LDL Cholesterol 40, VLDL Cholesterol 15, HDL Cholesterol 42 Rhythm: Sinus rhythm; PVCs Radiography Diagnostic Testing: Radiology Impression Echocardiogram 06/16/21 00:41 Interpretation Summary The study was technically difficult. Contrast injection was performed. Severely dilated left ventricle. Severe segmental systolic dysfunction (see wall motion). The estimated ejection fraction is 20 %. Moderately dilated right ventricle. Moderate global right ventricular systolic dysfunction. The left atrium is moderately enlarged. The right atrium is mildly enlarged. There is mild to moderate mitral annular calcification. Attention of the mitral annular calcification onto the base of the posterior mi tral valve leaflet. Mild (1+) mitral valve insufficiency. Mild tricuspid valve insufficiency. Mild diffuse aortic valve thickening. Mild focal aortic valve calcification. Trivial pulmonic valve insufficiency. Right ventricular systolic pressure estimated to be 27 mmHg. There is evidence of diastolic dysfunction. Ordering Physician: Rohan Melendez Referring Physician: Matias Graves Performed By: Balwinder Ramos, RCS Liver Ultrasound 06/16/21 00:41 IMPRESSION: Status post cholecystectomy. Electronically Signed: Jesus Stallworth MD at 11:14 EDT , Service support , Venous Doppler Study 06/16/21 13:59 Interpretation Summary No evidence for acute deep venous thrombosis bilateral lower extremities with patent and compressible bilateral great saphenous veins. Ordering Physician: Alma Martin Performed By: Eduardo Hunt, RVT Chest CTA 06/16/21 15:16 IMPRESSION: CTA chest examination, without a demonstrated pulmonary embolism or arterial dissection. Left pleural effusion. Left lower lung atelectasis. Electronically Signed: Leonel Rodriguez MD at 16:42 EDT , Service support , Physical Exam Const alert, oriented x3 and no apparent distress Orientation / Consciousness: awake HEENT normocephalic, head/scalp atraumatic and hearing grossly normal bilaterally Eyes PERRL, EOMs intact bilaterally and conjunctivae normal Neck full ROM, supple and no JVD Resp Auscultation: diminished lung sounds bilateral (Bases) Cardio regular rate, regular rhythm, S1 normal heart sound and S2 normal heart sound Cardio Narrative: Diminished heart tones GI normal to inspection, nondistended, normoactive bowel sounds Extremity General Extremity: edema bilateral lower extremity (Wearing bilateral Augustus wraps) Details: severe Neuro oriented x3, moves all extremities, no focal motor deficits and no sensory deficits noted Psych mental status grossly normal Assessment & Plan Assessment/Plan (1) Heart failure: QUALIFIERS: Heart failure type: unspecified Heart failure chronicity: acute Qualified Code(s): I50.9 - Heart failure, unspecified PLAN: The patient does have findings compatible with what appears to be acute on chronic systolic mediated CHF. The same time there is concerned that he also has an element of right heart failure based upon his echocardiographic findings. Thus he would have biventricular heart failure. At the present time he is continuing medical therapy. He has declined further optimization of his medical therapy such as the addition of other agents such as beta-blockers and afterload reducing agents. He has declined further evaluation of his cardiovascular status with additional studies such as diagnostic cardiac catheterization. (2) Cardiomyopathy: PLAN: Again the patient has findings compatible with an underlying cardiomyopathy. It is unclear at this time whether there is a component of coronary artery disease contributing to it. At the present time he is choosing to continue limited medical therapy. (3) PVD (peripheral vascular disease): PLAN: The patient reports a history of peripheral vascular disease. The details are unknown at this time. This may be based on his history of diabetes mellitus. (4) Diabetes mellitus type II, uncontrolled: PLAN: The patient admits his diabetes is not well controlled. He acknowledges that this is contributed to his right foot fifth digit amputation. Addt'l Comments Overall, at the present time, the patient is choosing to continue limited medical therapy which mainly includes diuretic therapy. He states he does not want to add additional medications at this time especially agent such as beta- blockers or afterload reducing agents. He also states he does not want to proceed with further diagnostic studies which could include diagnostic cardiac catheterization. He states as he feels better and he wants to continue his diuretic therapy and alter his lifestyle. The aforementioned information was conveyed to the [facility] staff. This note was generated using a voice recognition system and there may be incorrect words, spelling or punctuation that were not noted when reviewing the office note prior to saving.
[2021-06-17] MEDS: Spironolactone 25 MG Tablet PO (09:50)
[2021-06-17] MEDS: Furosemide 40 MG/4 ML Vial IV ×2 (09:50→18:01)
[2021-06-17] MEDS: 0.9% Saline Lock 10 ML Syringe IV ×2 (09:57→18:03)
[2021-06-17 11:50] LABS: Bedside Glucose 164 mg/dL (70-110)
--- NOTE | 2021-06-17 12:31 | PN.HOSP_ITS ---
Documented by User: Alma Martin NP, DIRECT MARKETING REPRESENTATIVE-C 06/17/21 12:42 Subjective Subjective Patient seen and examined. Reports his breathing and fatigue have significantly improved. States he feels 20 years younger. Heart cath and medical therapies discussed with patient by cardiology and he initially refused further work-up however upon further discussion with hospitalist, patient amendable to heart cath and recommended medications. Objective Data Objective Data Vital Signs: Vital Signs Temp Pulse Resp BP Pulse Ox 98.3 F 70 16 109/59 L 95 06/17/21 09:42 06/17/21 09:42 06/17/21 09:42 06/17/21 09:42 06/17/21 09:42 Oxygen Delivery Method Room Air Weight: 287 lb Body Mass Index (BMI) 44.3 Intake & Output: Intake and Output for Last 24 Hours 06/15/21 06/16/21 06/17/21 23:59 23:59 23:59 Intake Total 1060 / 1060 120 / 120 Output Total 7120 / 7120 800 / 800 Balance -6060 / -6060 -680 / -680 Lab / Micro Data Result Diagrams: 06/15/21 20:04 06/17/21 05:56 Labs: Laboratory Results - last 24 hr 06/16/21 05:55: Hemoglobin A1c 7.8 H 06/16/21 12:52: D-Dimer Quant (PE/DVT) 4.53 H* 06/16/21 16:59: POC Glucose 175 H 06/16/21 17:15: Urine Color Yellow, Urine Clarity Clear, Urine pH 7.0, Ur Specific [place] 1.010, Urine Protein Negative, Urine Glucose (UA) Normal, Urine Ketones Negative, Urine Occult Blood 150 H, Urine Nitrite Negative, Urine Marlon irubin Negative, Urine Urobilinogen 1 H, Ur Leukocyte Esterase 100 H, Urine RBC 0-5 SEEN, Urine WBC 0-5 SEEN, Ur Squamous Epith Cells 0 SEEN, Urine Bacteria 0 SEEN, Urine Mucus 0 SEEN 06/16/21 22:09: POC Glucose 119 H 06/17/21 04:13: POC Glucose 70 06/17/21 05:56: Sodium 137, Potassium 3.9, Chloride 101, Carbon Dioxide 29.0, Anion Gap 7, BUN 23 H, Creatinine 0.90, Estim Creat Clear Calc 86.56, Est GFR (MDRD) Af Amer 111, Est GFR (MDRD) Non-Af 92, BUN/Creatinine Ratio 25.5 H, Glucose 135 H, Calcium 8.7, Triglycerides 77, Cholesterol 97, LDL Cholesterol 40, VLDL Cholesterol 15, HDL Cholesterol 42 06/17/21 07:00: POC Glucose 112 H 06/17/21 11:40: POC Glucose 164 H Micro: Microbiology 06/15/21 20:05 Nasal Secretion SARS-CoV-2 Antigen (Rapid) - Final Radiography Diagnostic Testing: Radiology Impression Echocardiogram 06/16/21 00:41 Interpretation Summary The study was technically difficult. Contrast injection was performed. Severely dilated left ventricle. Severe segmental systolic dysfunction (see wall motion). The estimated ejection fraction is 20 %. Moderately dilated right ventricle. Moderate global right ventricular systolic dysfunction. The left atrium is moderately enlarged. The right atrium is mildly enlarged. There is mild to moderate mitral annular calcification. Attention of the mitral annular calcification onto the base of the posterior mitral valve leaflet. Mild (1+) mitral valve insufficiency. Mild tricuspid valve insufficiency. Mild diffuse aortic valve thickening. Mild focal aortic valve calcification. Trivial pulmonic valve insufficiency. Right ventricular systolic pressure estimated to be 27 mmHg. There is evidence of diastolic dysfunction. Ordering Physician: Rohan Melendez Referring Physician: Matias Graves Performed By: Balwinder Ramos RCS Venous Doppler Study 06/16/21 13:59 Interpretation Summary No evidence for acute deep venous thrombosis bilateral lower extremities with patent and compressible bilateral great saphenous veins. Ordering Physician: Alma Martin Performed By: Eduardo Hunt, RVT Chest CTA 06/16/21 15:16 IMPRESSION: CTA chest examination, without a demonstrated pulmonary embolism or arterial dissection. Left pleural effusion. Left lower lung atelectasis. Electronically Signed: Leonel Rodriguez MD at 16:42 EDT , Service support , Physical Exam Const alert, oriented x3 and no apparent distress Orientation / Consciousness: awake, oriented to person, oriented to place and oriented to time HEENT normocephalic and moist oral mucous membranes Eyes PERRL, EOMs intact bilaterally and conjunctivae normal Neck no lymphadenopathy Resp normal respiratory effort and clear to auscultation bilaterally Cardio regular rate, regular rhythm and no murmurs Peripheral Pulses: pulses 2+ throughout GI normal to inspection, nondistended, normoactive bowel sounds, non-tender and non-distended Extremity normal to inspection General Extremity: edema bilateral lower extremity Skin no rashes or lesions noted Lesions: no lesions Rashes: no rashes Trauma: no lacerations or abrasions Neuro CN's II-XII intact bilaterally, no focal motor deficits, no sensory deficits noted and deep tendon reflexes 2+ bilaterally Psych mental status grossly normal and affect normal Assessment & Plan Assessment/Plan (1) Cardiomyopathy: PLAN: 1. Acute on chronic heart failure with reduced ejection fraction/cardiomyopathy-BNP 352. Chest x-ray with left pleural effusion. Previous echocardiogram 04/11/2020 demonstrated an EF of 45 to 50%, stage I diastolic dysfunction. Repeat echocardiogram demonstrates an EF of 20%. D- dimer elevated, lower extremity Doppler negative for DVT, CTA negative for PE. Troponin negative. Cardiology consulted. Patient now amendable to additional cardiac evaluation and medical management. Anticipate heart cath 06/18/2021. Initiated on Entresto, Aldactone, carvedilol. Continue IV Lasix. May tr ansition to oral Lasix in a.m. 2. Type 2 diabetes mellitus with peripheral neuropathy-hemoglobin A1c February 2020 11.3%. Repeat hemoglobin A1c 7.8%. Accu-Cheks with sliding scale insulin. Continue home insulin regimen. 3. PAD-previous arterial studies March 2020 with evidence of arterial calcificat ions at ankle level bilaterally. Moderate impairment of arterial flow at the digital level on the right. 4. Morbid obesity-encouraged diet and lifestyle modifications. DVT prophylaxis- Lovenox sc Discharge plan: Plan for heart cath 06/18/2021, pending findings plan for discharge with aggressive medical management and outpatient follow-up. This patient was seen by GARETH Saleh under the supervision of Dr. Alexander. Documented by User: Dr. Pete Alexander MD 06/17/21 16:22 Objective Data Lab / Micro Data Result Diagrams: 06/15/21 20:04 06/17/21 05:56 Charges/Coding Addendum Addendum: Dr. Alexander: I personally reviewed the chart and examined the patient, and agree with the above findings. 60-year-old male with a previous history of reduced ejection fraction 45 to 50% with stage I diastolic dysfunction presents with shortness of breath and leg swelling has been worsening over the last several months. He did have an elevated D-dimer and CT of the chest was negative, venous duplex is pending. Echo demonstrates a severely reduced EF at 20% with left ventricular dilatation. Cardiology will be consulted, will continue with his Lasix. Since he started Lasix, he is down about 3 L. 06/17/2021: Met with cardiology this morning and did not want to have a heart catheter take any of the medications because did not believe he had any heart disease. I had extensive discussion with him including the fact that his eject ion fraction was now 20% which mostly cause would be coronary artery disease in the room to determine that and treated is to do a heart cath. I discussed with him that his EF is low enough that he could potentially if he gets worse have sudden cardiac from arrhythmias. He states that he was not aware that it was that serious and would like now to proceed with a heart cath and take the medications as initially requested per cardiology. Plan will be for heart cath in the morning. Visit Charges Inpatient E&M: 48863 Subs Hosp L2
[2021-06-17] MEDS: Insulin Lispro 100 UNIT/ML INSULN.PEN 10 UNIT SC ×2 (13:42→16:41)
[2021-06-17 14:01] LABS: Bedside Glucose 143 mg/dL (70-110)
[2021-06-17] MEDS: Insulin Lispro 100 UNIT/ML INSULN.PEN SC ×2 (16:42→21:07)
[2021-06-17 16:55] LABS: Bedside Glucose 155 mg/dL (70-110)
[2021-06-17] MEDS: Carvedilol 3.125 MG TABLET PO (20:58)
[2021-06-17] MEDS: Enoxaparin 40 MG/0.4 ML Syringe SC (20:58)
[2021-06-17] MEDS: SACUBITRIL/VALSARTAN 24/26 MG TABLET 1 EACH PO (20:58)
[2021-06-17 21:46] LABS: Bedside Glucose 178 mg/dL (70-110)
[2021-06-18] VITALS (19 sets, daily range): BP systolic 98–124; BP diastolic 65–94; PULSE 66–85; RESP 13–19; TEMP 36.4–36.6; O2SAT 93–99
--- NOTE | 2021-06-18 02:47 | EKG12_ITS ---
Test Reason : AM EKG Blood Pressure : / mmHG Vent. Rate : 075 BPM Atrial Rate : 075 BPM P-R Int : 166 ms QRS Dur : 154 ms QT Int : 450 ms P-R-T Axes : 050 220 076 degrees QTc Int : 502 ms Sinus rhythm with sinus arrhythmia with occasional Premature ventricular complexes Right bundle branch block T wave abnormality, consider lateral ischemia Abnormal ECG When compared with ECG of 15-JUN-2021 20:33, Premature ventricular complexes are now Present Confirmed by ERMA GROVER, GIULIA ([id number]), deputy editor in chief HOWARD AKHTAR ([id number]) on 06/18/2021 12:38:52 PM Referred By: TAISHA Confirmed By:GIULIA RITCHIE MD
[2021-06-18] MEDS: Carvedilol 3.125 MG TABLET PO ×2 (07:04→20:56)
[2021-06-18] MEDS: Aspirin E.C. 81 MG Tablet PO (07:04)
[2021-06-18 07:16] LABS: Bedside Glucose 231 mg/dL (70-110)
--- NOTE | 2021-06-18 10:03 | CL.D_ITS ---
Patient Name: OLY SMITH Study Date: 06/18/2021 Performing: Gustavo Wallace MD Ht: 68 inches 173 cm : 1960 Wt: 264.9 lbs 120 kg Age: 60 Gender: male BSA: 2.3 PROCEDURE(S) PERFORMED [id number]/LV CLINICAL PROFILE AND INDICATIONS Heart Failure: NYHA Class: 3, Newly Diagnosed: Yes, Heart Failure Type: Systolic Stress/Imaging Stress/Image Study Performed: No Angina Classification Anginal Classification w/in 2 Weeks: CCS III CAD Presentations: Other: dyspnea on exertion CONCLUSIONS Elevated Left Ventricular End Diastolic Pressure Global LV systolic dysfunction- Severe LVEF: by LV gram 20 % [place] Multivessel CAD (non angiographically significant) RECOMMENDATIONS Risk factor modification Medical therapy DESCRIPTION OF PROCEDURE The patient arrived to the procedure lab. The risks and benefits of the procedure as well as a full d escription of our services here and current unavailability of surgical backup were fully explained to the patient and/or their significant other prior to the catheterization. The Timeout was completed, verifying the correct patient and procedure. The patient's procedural site was prepped and draped in the usual fashion. Local anesthetic was given subcutaneously to right radial region with Lidocaine 2% . Using a modified Seldinger technique, arterial access was obtained via the right radial artery, a 6 Fr sheath was inserted. Right Coronary Artery selective angiography was then performed in multiple v iews using a 5 Fr. 4.0 [place] catheter. Left Coronary Artery selective angiography was performed in mu ltiple views using a 5 Fr. JL3.5 catheter. Left Ventriculography was performed in [place] projection usin g a 5 Fr. Pig[place] catheter. LV to AO pullback pressures were then recorded.The arterial sheath was pulled and a TR Band was applied for hemostasis w/ 10ml air CORONARY ANGIOGRAPHY DOMINANCE: Right Dominant LEFT HEART ASSESSMENT Left Ventricular Ejection Fraction: by LV Gram 20 % Global Hypokinesis - Severe Elevated Left Ventricular End Diastolic Pressure LVEDP: 28 mmHg LEFT MAIN: Angiographically normal LEFT ANTERIOR DESCENDING ARTERY: Mild luminal irregularities CIRCUMFLEX ARTERY: PROX CIRC: Mild luminal irregularities RIGHT CORONARY ARTERY: PROX RCA: eccentric: 25 % Stenosis MID RCA: Mild luminal irregularities DISTAL RCA: Mild luminal irregularities AORTIC ROOT: Angiographically normal COMPLICATIONS No Complications PROCEDURE MEDICATIONS Versed 1 mg IV Fentanyl 50 mcg IV Oxygen: 2 L/min via nasal cannula Heparin given IA 06/18/2021 09:06:51 Verapamil 2.5mg, Ntg 100mcgs, 3000 units of Heparin given IA 06/18/2021 09:06:51 SUMMARY OF HEMODYNAMIC DATA Time AIR REST ECG 08:43:13 AO 92/79 (85) SA 09:10:42 LV 115/22, 28 09:36:37 LV 114/24, 28 09:37:31 LV 112/26, 31 09:38:30 LV 111/20, 30 09:38:37 LVp 132/35, 41 09:38:42 AOp 112/71 (88) 09:38:47 Signed By Gustavo Wallace MD On 06/18/2021 10:02:42 Gustavo Wallace MD
--- NOTE | 2021-06-18 10:04 | PN.CARD_ITS ---
Subjective Subjective The patient Khanh now status post diagnostic cardiac catheterization. He has no new acute complaints. Overall, he states he feels better since diuresis and losing several pounds of fluid. Objective Data Vital Signs: Vital Signs Temp Pulse Resp BP Pulse Ox 97.9 F 72 15 124/71 H 95 06/18/21 03:00 06/18/21 07:58 06/18/21 03:00 06/18/21 03:00 06/18/21 08:13 Oxygen Delivery Method Room Air Weight: 264 lb 12.403 oz Body Mass Index (BMI) 44.3 Intake & Output: Intake and Output for Last 24 Hours 06/16/21 06/17/21 06/18/21 23:59 23:59 23:59 Intake Total 1060 / 1060 460 / 680 220 / 220 Output Total 7120 / 7120 3625 / 4625 1350 / 1350 Balance -6060 / -6060 -3165 / -3945 -1130 / -1130 Lab / Micro Data Result Diagrams: 06/15/21 20:04 06/17/21 05:56 Labs: Laboratory Results - last 24 hr 06/17/21 11:40: POC Glucose 164 H 06/17/21 13:40: POC Glucose 143 H 06/17/21 16:38: POC Glucose 155 H 06/17/21 21:06: POC Glucose 178 H 06/18/21 07:02: POC Glucose 231 H Cardiology Labs/Tests Rhythm: Sinus rhythm Physical Exam Const alert, oriented x3 and no apparent distress Orientation / Consciousness: awake HEENT normocephalic, head/scalp atraumatic and hearing grossly normal bilaterally Eyes PERRL, EOMs intact bilaterally and conjunctivae normal Neck full ROM, supple and no JVD Resp Auscultation: diminished lung sounds bilateral (Bases) Cardio regular rate, regular rhythm, S1 normal heart sound and S2 normal heart sound Cardio Narrative: Diminished heart tones GI normal to inspection, nondistended, normoactive bowel sounds Extremity General Extremity: edema bilateral lower extremity (Wearing bilateral Augustus wraps) Details: mild Peripheral Pulses: Yes radial pulses present right 2+ Neuro oriented x3, moves all extremities, no focal motor deficits and no sensory deficits noted Psych mental status grossly normal Assessment & Plan Assessment/Plan (1) Heart failure: QUALIFIERS: Heart failure type: unspecified Heart failure chronicity: acute Qualified Code(s): I50.9 - Heart failure, unspecified PLAN: The patient does have findings compatible with what appears to be acute on chronic systolic mediated CHF. The same time there is concerned that he also has an element of right heart failure based upon his echocardiographic findings. Thus he would have biventricular heart failure. At the present time he is continuing medical therapy. He has agreed to proceed with medical management. He has undergone diagnostic cardiac catheterization which appears to reveal a non-CAD related cardiomyopathy. (2) Cardiomyopathy: QUALIFIERS: Cardiomyopathy type: unspecified Qualified Code(s): I42.9 - Cardiomyopathy, unspecified PLAN: Again he appears to have an underlying non-CAD related cardiomyopathy. He will continue medical therapy. He will need to be followed over time with a transthoracic echocardiogram. If over time his left ventricle does not improve with respect to systolic function/LVEF then he will need to be also considered for primary prevention ICD therapy. (3) CAD (coronary artery disease): QUALIFIERS: Coronary Disease-Associated Artery/Lesion type: [place] artery [place] vs. transplanted heart: [place] heart Associated angina: without angina Qualified Code(s): I25.10 - Atherosclerotic heart disease of [place] coronary artery without angina pectoris PLAN: The patient does have an element of CAD. It appears to be mild. It does not explain his cardiomyopathy. He will continue risk factor evaluation care as deemed appropriate. (4) PVD (peripheral vascular disease): PLAN: The patient reports a history of peripheral vascular disease. The details are unknown at this time. This may be based on his history of diabetes mellitus. (5) Diabetes mellitus type II, uncontrolled: PLAN: The patient admits his diabetes is not well controlled. He acknowledges that this is contributed to his right foot fifth digit amputation. Addt'l Comments The patient's case was discussed with the patient, his spouse, and Dr. Alexander. This note was generated using a voice recognition system and there may be incorrect words, spelling or punctuation that were not noted when reviewing the office note prior to saving.
[2021-06-18] MEDS: 0.9% Normal Saline 1,000 ML 50 ML IV (10:21)
[2021-06-18] MEDS: SACUBITRIL/VALSARTAN 24/26 MG TABLET 1 EACH PO (11:09)
[2021-06-18] MEDS: Furosemide 40 MG/4 ML Vial IV ×2 (11:09→16:40)
[2021-06-18] MEDS: Spironolactone 25 MG Tablet PO (11:09)
[2021-06-18] MEDS: Insulin Lispro 100 UNIT/ML INSULN.PEN 10 UNIT SC ×2 (11:26→16:37)
[2021-06-18] MEDS: Insulin Lispro 100 UNIT/ML INSULN.PEN SC ×2 (11:27→16:37)
[2021-06-18 11:35] LABS: Bedside Glucose 190 mg/dL (70-110)
--- NOTE | 2021-06-18 12:42 | PN.HOSP_ITS ---
Documented by User: Pavel HERNANDEZ 06/18/21 12:56 Subjective Subjective Patient is a 60-year-old male comfortably resting in bed, alert and orient x3. Patient denies any complaints or development of symptoms overnight. Denies chest pain, shortness of breath, palpitations, hemoptysis, sputum production, f ever, chills, N/V/D. Objective Data Objective Data Vital Signs: Vital Signs Temp Pulse Resp BP Pulse Ox 97.9 F 70 17 121/77 H 96 06/18/21 03:00 06/18/21 11:30 06/18/21 11:30 06/18/21 11:30 06/18/21 11:30 Oxygen Delivery Method Room Air Weight: 264 lb 12.403 oz Body Mass Index (BMI) 44.3 Intake & Output: Intake and Output for Last 24 Hours 06/16/21 06/17/21 06/18/21 23:59 23:59 23:59 Intake Total 1060 / 1060 460 / 680 220 / 220 Output Total 7120 / 7120 3625 / 4625 1950 / 1950 Balance -6060 / -6060 -3165 / -3945 -1730 / -1730 Lab / Micro Data Result Diagrams: 06/15/21 20:04 06/17/21 05:56 Labs: Laboratory Results - last 24 hr 06/17/21 13:40: POC Glucose 143 H 06/17/21 16:38: POC Glucose 155 H 06/17/21 21:06: POC Glucose 178 H 06/18/21 07:02: POC Glucose 231 H 06/18/21 11:24: POC Glucose 190 H Micro: Microbiology 06/15/21 20:05 Nasal Secretion SARS-CoV-2 Antigen (Rapid) - Final Physical Exam Const alert, oriented x3 and no apparent distress HEENT head/scalp atraumatic and moist oral mucous membranes Head and Scalp: normocephalic Eyes PERRL, EOMs intact bilaterally and conjunctivae normal Neck no lymphadenopathy, supple and no JVD Resp normal respiratory effort, no retractions, no use of accessory muscles and clear to auscultation bilaterally Cardio regular rate, regular rhythm, no murmurs and no JVD GI normal to inspection, nondistended, normoactive bowel sounds, soft to palpation and non-tender Extremity normal to inspection, full ROM and no clubbing, cyanosis or edema Skin no rashes or lesions noted, no wounds, skin turgor normal and no jaundice Neuro CN's II-XII intact bilaterally Psych affect normal Assessment & Plan Assessment/Plan (1) Cardiomyopathy: QUALIFIERS: Cardiomyopathy type: unspecified Qualified Code(s): I42.9 - Cardiomyopathy, unspecified PLAN: Day 3 Discharge planning: Current plan is for patient to discharge home when medically ready. 1) Acute on chronic heart failure with reduced ejection fraction/cardiomyopathy Cardiac catheterization obtained on 06/18 demonstrated elevated left ventricular end-diastolic pressure, global left ventricular systolic dysfunction, an EF of 20% with [place] multivessel coronary artery disease. Updated echocardiogram obtained on 06/16/21 demonstrated severely dilated left ventricle, severe segmental systolic dysfunction, an estimated EF of 20%, moderately dilated right ventricle, moderate right ventricular systolic dysfunction, an RVSP of 27 mmHg and evidence of diastolic dysfunction. Cardiology is following and recommends continued medical management. Plan; remain admitted overnight for continuation of IV fluids, continue IV Lasix twice daily, continue aspirin, continue Coreg, continue Aldactone, continue Entresto and Lipitor. 2) Type 2 diabetes mellitus with peripheral neuropathy Hemoglobin A1c obtained on 06/16 was 7.8%. Continue Accu-Cheks with sliding scale insulin and home insulin regimen. 3) PAD Previous arterial studies March 2020 with evidence of arterial calcifications at ankle level bilaterally. Moderate impairment of arterial flow at the digital level on the right. 4) Morbid obesity Encouraged diet and lifestyle modifications. DVT prophylaxis - Lovenox Patient seen by Pavel Valenzuela PA-C, under the supervision of Dr. Alexander. Documented by User: Dr. Pete Alexander MD 06/18/21 15:55 Objective Data Lab / Micro Data Result Diagrams: 06/15/21 20:04 06/17/21 05:56 Charges/Coding Addendum Addendum: Dr. Alexander: I personally reviewed the chart and examined the patient, and agree with the above findings. 60-year-old male with a previous history of reduced ejection fraction 45 to 50% with stage I diastolic dysfunction presents with shortness of breath and leg swelling has been worsening over the last several months. He did have an elevated D-dimer and CT of the chest was negative, venous duplex is pending. Echo demonstrates a severely reduced EF at 20% with left ventricular dilatation. Cardiology will be consulted, will continue with his Lasix. Since he started Lasix, he is down about 3 L. 06/17/2021: Met with cardiology this morning and did not want to have a heart catheter take any of the medications because did not believe he had any heart disease. I had extensive discussion with him including the fact that his ejection fraction was now 20% which mostly cause would be coronary artery disease in the room to determine that and treated is to do a heart cath. I discussed with him that his EF is low enough that he could potentially if he gets worse have sudden cardiac from arrhythmias. He states that he was not aware that it was that serious and would like now to proceed with a heart cath and take the medications as initially requested per cardiology. Plan will be for heart cath in the morning. 06/18/2021: Had his cardiac cath today which showed no coronary artery disease, and discussion with cardiology this is likely a cardiomyopathy secondary to uncontrolled diabetes. Looking through his labs she is never had a normal A1c, his A1c on admission was 7.8, the one before that a year ago was 11.3. Did rolando londono with him lifestyle modifications, diet and exercise as well as continue to take his diabetic medications appropriately. He is also okay with taking the medications including beta-german as well as Aldactone and Entresto. We will continue with IV diuresis for today and then switch to oral tomorrow and potentially discharge if he is feeling okay. Visit Charges Inpatient E&M: 43062 Subs Hosp L2
[2021-06-18 17:05] LABS: Bedside Glucose 258 mg/dL (70-110)
[2021-06-19 00:31] LABS: Bedside Glucose 149 mg/dL (70-110)
[2021-06-19 03:00] VITALS: BP 93/57; PULSE 78; PULSE 79; RESP 18; TEMP 36.8; O2SAT 94
[2021-06-19 05:45] LABS: Anion Gap 5 (5-15); BUN 32 mg/dL (7-18); BUN/Creat Ratio 29.1 RATIO (10-20); Calcium,Total 8.9 mg/dL (8.5-10.1); Chloride 97 mmol/L (98-107); EST Glomerular Filtration Rate 73 mL/min (>60); Est Glom Filt Rate - Afr Amer 88 mL/min (>60); Estimated Creatinine Clearance 70.82 ml/min; Glucose 228 mg/dL (74-106); Potassium 4.5 mmol/L (3.5-5.1); Sodium Level 133 mmol/L (136-145)
[2021-06-19] MEDS: Insulin Lispro 100 UNIT/ML INSULN.PEN SC (06:31)
[2021-06-19 06:59] VITALS: PULSE 83
[2021-06-19 07:05] LABS: Bedside Glucose 230 mg/dL (70-110)
[2021-06-19 07:41] VITALS: BP 121/80; PULSE 84; RESP 18; TEMP 37.1; O2SAT 98
[2021-06-19] MEDS: Insulin Lispro 100 UNIT/ML INSULN.PEN 10 UNIT SC (09:18)
[2021-06-19] MEDS: Aspirin E.C. 81 MG Tablet PO (09:18)
[2021-06-19] MEDS: Spironolactone 25 MG Tablet PO (09:21)
[2021-06-19] MEDS: Carvedilol 3.125 MG TABLET PO (09:22)
[2021-06-19] MEDS: SACUBITRIL/VALSARTAN 24/26 MG TABLET 1 EACH PO (09:23)
[2021-06-19] MEDS: Furosemide 40 MG Tablet PO (09:29)
--- NOTE | 2021-06-19 10:21 | PCM.PN.CARD ---
Subjective Subjective The patient is awake and alert. He states he feels so much better since diuresis. He has no new complaints today. Objective Data Vital Signs: Vital Signs Temp Pulse Resp BP Pulse Ox 98.8 F 84 18 121/80 H 98 06/19/21 07:41 06/19/21 07:41 06/19/21 07:41 06/19/21 07:41 06/19/21 07:41 Oxygen Delivery Method Room Air Weight: 260 lb 5.855 oz Body Mass Index (BMI) 44.3 Intake & Output: Intake and Output for Last 24 Hours 06/17/21 06/18/21 06/19/21 23:59 23:59 23:59 Intake Total 460 / 680 613.33 / 613.33 Output Total 3625 / 4625 4925 / 4925 875 / 875 Balance -3165 / -3945 -4311.67 / -4311.67 -875 / -875 Lab / Micro Data Result Diagrams: 06/15/21 20:04 06/19/21 04:50 Labs: Laboratory Results - last 24 hr 06/18/21 11:24: POC Glucose 190 H 06/18/21 16:35: POC Glucose 258 H 06/18/21 20:49: POC Glucose 149 H 06/19/21 04:50: Sodium 133 L, Potassium 4.5, Chloride 97 L, Carbon Dioxide 31.0, Anion Gap 5, BUN 32 H, Creatinine 1.10, Estim Creat Clear Calc 70.82, Est GFR (MDRD) Af Amer 88, Est GFR (MDRD) Non-Af 73, BUN/Creatinine Ratio 29.1 H, Glucose 228 H, Calcium 8.9 06/19/21 06:29: POC Glucose 230 H Cardiology Labs/Tests 06/19/21 04:50: Sodium 133 L, Potassium 4.5, Chloride 97 L, Carbon Dioxide 31.0, Anion Gap 5, BUN 32 H, Creatinine 1.10, Est GFR (MDRD) Af Amer 88, Est GFR (MDRD) Non-Af 73, BUN/Creatinine Ratio 29.1 H, Glucose 228 H, Calcium 8.9 Rhythm: Sinus rhythm Physical Exam Const alert, oriented x3 and no apparent distress Orientation / Consciousness: awake HEENT normocephalic, head/scalp atraumatic and hearing grossly normal bilaterally Eyes PERRL, EOMs intact bilaterally and conjunctivae normal Neck full ROM, supple and no JVD Resp Auscultation: diminished lung sounds bilateral (Bases) Cardio regular rate, regular rhythm, S1 normal heart sound and S2 normal heart sound Cardio Narrative: Diminished heart tones GI normal to inspection, nondistended, normoactive bowel sounds Extremity General Extremity: edema bilateral lower extremity (Wearing bilateral [place] wraps) Details: mild Neuro oriented x3, moves all extremities, no focal motor deficits and no sensory deficits noted Psych mental status grossly normal Assessment & Plan Assessment/Plan (1) Heart failure: QUALIFIERS: Heart failure type: unspecified Heart failure chronicity: acute Qualified Code(s): I50.9 - Heart failure, unspecified PLAN: The patient does have findings compatible with what appears to be acute on chronic systolic mediated CHF. The same time there is concerned that he also has an element of right heart failure based upon his echocardiographic findings. Thus he would have biventricular heart failure. At the present time he is continuing medical therapy. He has agreed to proceed with medical management. He has undergone diagnostic cardiac catheterization which appears to reveal a non-CAD related cardiomyopathy. (2) Cardiomyopathy: QUALIFIERS: Cardiomyopathy type: unspecified Qualified Code(s): I42.9 - Cardiomyopathy, unspecified PLAN: Again he appears to have an underlying non-CAD related cardiomyopathy. He will continue medical therapy. He will need to be followed over time with a transthoracic echocardiogram. If over time his left ventricle does not improve with respect to systolic function/LVEF then he will need to be also considered for primary prevention ICD therapy. (3) CAD (coronary artery disease): QUALIFIERS: Coronary Disease-Associated Artery/Lesion type: [place] artery [place] vs. transplanted heart: [place] heart Associated angina: without angina Qualified Code(s): I25.10 - Atherosclerotic heart disease of [place] coronary artery without angina pectoris PLAN: The patient does have an element of CAD. It appears to be mild. It does not explain his cardiomyopathy. He will continue risk factor evaluation care as deemed appropriate. (4) PVD (peripheral vascular disease): PLAN: The patient reports a history of peripheral vascular disease. The details are unknown at this time. This may be based on his history of diabetes mellitus. (5) Diabetes mellitus type II, uncontrolled: PLAN: The patient admits his diabetes is not well controlled. He acknowledges that this is contributed to his right foot fifth digit amputation. Addt'l Comments Overall, at the present time, the cardiovascular plan would be for continued medical management, future outpatient echocardiographic follow-up to monitor the response of his left ventricle, if his left ventricular function does not improve over time then consideration for primary prevention ICD therapy, and continued outpatient follow-up. The above was discussed with the patient. He was agreeable to this approach. This note was generated using a voice recognition system and there may be incorrect words, spelling or punctuation that were not noted when reviewing the office note prior to saving.
--- NOTE | 2021-06-19 10:37 | PCM.DC ---
Discharge Instructions Diet Discharge Diet: No restrictions Activity Discharge Activity: Return to Normal Activity Weight Bearing Status: Weight bearing as tolerated Dressing / Incision Call your doctor if you observe: Fever of 101 or Higher, Numbness or Tingling, Shortness of breath, Dizziness, Chest pain, Increased palpitations (irregular heartbeat) and Calf discomfort Follow Up Care Please Follow Up With: Primary care provider When: Within the next two weeks. Test Results: Test results from this visit will be discussed in further detail at your follow-up appointment, if applicable. Discharge Plan Admission Admit Date/Time: 06/15/21 22:28 Primary Reason for Your Visit: Fatigure with LE swelling Attending Provider: Pete Alexander Primary Care Provider: Matias Graves Consulting Providers: Gustavo Wallace Discharge Orders/Prescriptions Prescriptions: New aspirin 81 mg capsule 81 mg PO DAILY Qty: 30 RF: 0 carvedilol [Coreg] 3.125 mg tablet 3.125 mg PO BID Qty: 60 RF: 0 spironolactone 25 mg tablet 25 mg PO DAILY Qty: 30 RF: 0 Entresto 24-26 mg tablet 1 tab PO BID Qty: 60 RF: 0 atorvastatin [Lipitor] 20 mg tablet 20 mg PO QHS Qty: 30 RF: 0 furosemide [Lasix] 40 mg tablet 40 mg PO BID Qty: 60 RF: 0 Continued insulin aspart U-100 100 UNITS/ML insulin pen 25 units SC TIDCM RF: 0 semaglutide 0.25 MG/0.2 ML pen injector 0.25 mg SQ QWEEK RF: 0 insulin degludec 100 UNIT/ML solution 40 unit SQ BID RF: 0 levofloxacin 500 mg Tablet 500 mg PO DAILY RF: 0 Discontinued triamterene 100 mg capsule 100 mg PO BID RF: 0 Referrals / Follow Up: Matias Graves MD [Primary Care Provider] - Within 2 Weeks (Please call to setup an appointment. ) Gustavo Wallace MD [STAFF PHYSICIAN] - 07/07/21 9:15 am Disposition Disposition (needs filled in before D/C Order can be placed): Home, Self Care
--- NOTE | 2021-06-19 11:25 | CASEMGMT ---
Pt states no concerns with going home at discharge and has been independent in room. Tung ANAND CM
[2021-06-19 11:37] VITALS: BP 126/82; PULSE 72; RESP 18; TEMP 36.8; O2SAT 96
[2021-06-19 11:39] VITALS: PULSE 81; O2SAT 96
--- NOTE | 2021-06-19 11:52 | PHA.DC.MC ---
Pharmacy Service has performed discharge medication reconciliation and counseling for this patient. The patient was counseled on the following discharge medications and changes in medications for homegoing were reviewed. 1. ASPIRIN 2. LIPITOR - FYI: PATIENT STATES HE WILL NOT TAKE THIS MEDICATION 3. ENTRESTO 4. COREG 5. ALDACTONE 6. LASIX The Reason for Use, instructions for use, and potential side effects were reviewed for all new medications. The patient's questions regarding all of their medications were answered. The patient was able to verbally demonstrate an understanding of their discharge medications.
--- NOTE | 2021-06-19 13:27 | DS.PCM_ITS ---
Documented by User: Pavel HERNANDEZ 06/19/21 13:35 Providers Date of Admission: 06/15/21 Primary Care Physician: Dr. Matias Graves MD Consultations 06/16/21 15:10 Consult: Cardiology Routine Consulting Provider: Gustavo Wallace Reason for Consult: Heart failure with reduced ejection fraction EMERGENT Consult: No MD Notified: Yes Date Notified: 06/16/21 Time Notified: 15:10 Method of Notification: Text Reason For Visit: ACUTE HEART FAILURE Diagnosis Discharge Diagnosis (1) Heart failure: Status: Acute Code(s): I50.9 - Heart failure, unspecified Qualifiers: Heart failure chronicity: acute Heart failure type: unspecified Qualified Code(s): I50.9 - Heart failure, unspecified (2) Cardiomyopathy: Status: Acute Code(s): I42.9 - Cardiomyopathy, unspecified Qualifiers: Cardiomyopathy type: unspecified Qualified Code(s): I42.9 - Cardiomyopathy, unspecified (3) PVD (peripheral vascular disease): Status: Chronic Code(s): I73.9 - Peripheral vascular disease, unspecified (4) Diabetes mellitus type II, uncontrolled: Status: Chronic Code(s): E11.65 - Type 2 diabetes mellitus with hyperglycemia Medications at Discharge Home Medications insulin aspart U-100 25 units SC TIDCM 02/27/20 semaglutide 0.25 mg SQ QWEEK 05/20/20 insulin degludec 40 unit SQ BID 05/28/20 levofloxacin 500 mg PO DAILY 06/15/21 aspirin 81 mg PO DAILY #30 cap 06/19/21 atorvastatin [Lipitor] 20 mg PO QHS #30 tab 06/19/21 carvedilol [Coreg] 3.125 mg PO BID #60 tab 06/19/21 furosemide [Lasix] 40 mg PO BID #60 tab 06/19/21 sacubitril-valsartan [Entresto] 1 tab PO BID #60 tab 06/19/21 spironolactone 25 mg PO DAILY #30 tab 06/19/21 Hospital Course Procedures Cardiac catheterization and Transthoracic echo Summary of Care Provided Minutes Spent on Discharge: 35 Hospital Course: Disposition: Patient to be discharged home. 1) Acute on chronic heart failure with reduced ejection fraction/cardiomyopathy Cardiac catheterization obtained on 06/18 demonstrated elevated left ventricular end-diastolic pressure, global left ventricular systolic dysfunction, an EF of 20% with [place] multivessel coronary artery disease. Updated echocardiogram obtained on 06/16/21 demonstrated severely dilated left ventricle, severe segmental systolic dysfunction, an estimated EF of 20%, moderately dilated right ventricle, moderate right ventricular systolic dysfunction, an RVSP of 27 mmHg and evidence of diastolic dysfunction. Cardiology is following and recommends continued medical management. Plan; discharge home, follow-up with primary care provider and cardiology within the next 2 weeks, initiate aspirin, statin, Coreg, Lasix, Entresto and spironolactone. Discontinue triamterene. 2) Type 2 diabetes mellitus with peripheral neuropathy Hemoglobin A1c obtained on 06/16 was 7.8%. Continue home diabetic regimen. 3) PAD Previous arterial studies March 2020 with evidence of arterial calcifications at ankle level bilaterally. Moderate impairment of arterial flow at the digital level on the right. 4) Morbid obesity Encouraged diet and lifestyle modifications. Patient seen by Pavel Valenzuela PA-C, under the supervision of Dr. Alexander. Physical Exam Const alert, oriented x3 and no apparent distress HEENT normocephalic, head/scalp atraumatic and hearing grossly normal bilaterally Eyes PERRL, EOMs intact bilaterally and conjunctivae normal Neck no lymphadenopathy, supple and no JVD Resp normal respiratory effort, no retractions, no use of accessory muscles and clear to auscultation bilaterally Cardio regular rate, regular rhythm, no murmurs and no JVD GI normal to inspection, nondistended, normoactive bowel sounds, soft to palpation and non-tender Extremity normal to inspection, full ROM and no clubbing, cyanosis or edema Skin no rashes or lesions noted, no wounds and skin turgor normal Neuro CN's II-XII intact bilaterally Psych affect normal Weight / BMI Weight Weight: 260 lb 5.855 oz Body Mass Index (BMI) 44.3 ABG / Lab / Microbiology Data Result Diagrams: 06/15/21 20:04 06/19/21 04:50 Laboratory: Laboratory Results - last 24 hr 06/18/21 16:35: POC Glucose 258 H 06/18/21 20:49: POC Glucose 149 H 06/19/21 04:50: Sodium 133 L, Potassium 4.5, Chloride 97 L, Carbon Dioxide 31.0, Anion Gap 5, BUN 32 H, Creatinine 1.10, Estim Creat Clear Calc 70.82, Est GFR (MDRD) Af Amer 88, Est GFR (MDRD) Non-Af 73, BUN/Creatinine Ratio 29.1 H, Glucose 228 H, Calcium 8.9 06/19/21 06:29: POC Glucose 230 H Microbiology: Microbiology 06/15/21 20:05 Nasal Secretion SARS-CoV-2 Antigen (Rapid) - Final D/C Instructions Discharge Diet: No restrictions Weight Bearing Status: Weight bearing as tolerated Call your doctor if you observe: Fever of 101 or Higher, Numbness or Tingling, Shortness of breath, Dizziness, Chest pain, Increased palpitations (irregular heartbeat) and Calf discomfort Please Follow Up With: Primary care provider When: Within the next two weeks. Meaningful Use Info Meaningful Use Diagnoses (Choose all that apply): CHF CHF ANITA/ARB ordered at discharge?: Yes Documented LVEF (%): 20 Discharge Plan Admission Admit Date/Time: 06/15/21 22:28 Primary Reason for Your Visit: Fatigure with LE swelling Attending Provider: Pete Alexander Primary Care Provider: Matias Graves Consulting Providers: Gustavo Wallace Discharge Orders/Prescriptions Prescriptions: New aspirin 81 mg capsule 81 mg PO DAILY Qty: 30 RF: 0 carvedilol [Coreg] 3.125 mg tablet 3.125 mg PO BID Qty: 60 RF: 0 spironolactone 25 mg tablet 25 mg PO DAILY Qty: 30 RF: 0 Entresto 24-26 mg tablet 1 tab PO BID Qty: 60 RF: 0 atorvastatin [Lipitor] 20 mg tablet 20 mg PO QHS Qty: 30 RF: 0 furosemide [Lasix] 40 mg tablet 40 mg PO BID Qty: 60 RF: 0 Continued insulin aspart U-100 100 UNITS/ML insulin pen 25 units SC TIDCM RF: 0 semaglutide 0.25 MG/0.2 ML pen injector 0.25 mg SQ QWEEK RF: 0 insulin degludec 100 UNIT/ML solution 40 unit SQ BID RF: 0 levofloxacin 500 mg Tablet 500 mg PO DAILY RF: 0 Discontinued triamterene 100 mg capsule 100 mg PO BID RF: 0 Referrals / Follow Up: Matias Graves MD [Primary Care Provider] - Within 2 Weeks (Please call to setup an appointment. ) Gustavo Wallace MD [STAFF PHYSICIAN] - 07/07/21 9:15 am Disposition Disposition (needs filled in before D/C Order can be placed): Home, Self Care Documented by User: Dr. Pete Alexander MD 06/19/21 13:39 Providers Date of Admission: 06/15/21 Reason For Visit: ACUTE HEART FAILURE Medications at Discharge Home Medications insulin aspart U-100 25 units SC TIDCM 02/27/20 semaglutide 0.25 mg SQ QWEEK 05/20/20 insulin degludec 40 unit SQ BID 05/28/20 levofloxacin 500 mg PO DAILY 06/15/21 aspirin 81 mg PO DAILY #30 cap 06/19/21 atorvastatin [Lipitor] 20 mg PO QHS #30 tab 06/19/21 carvedilol [Coreg] 3.125 mg PO BID #60 tab 06/19/21 furosemide [Lasix] 40 mg PO BID #60 tab 06/19/21 sacubitril-valsartan [Entresto] 1 tab PO BID #60 tab 06/19/21 spironolactone 25 mg PO DAILY #30 tab 06/19/21 ABG / Lab / Microbiology Data Result Diagrams: 06/15/21 20:04 06/19/21 04:50 Discharge Plan Admission Admit Date/Time: 06/15/21 22:28 Primary Reason for Your Visit: Fatigure with LE swelling Attending Provider: Pete Alexander Primary Care Provider: Matias Graves Consulting Providers: Gustavo Wallace Discharge Orders/Prescriptions Prescriptions: New aspirin 81 mg capsule 81 mg PO DAILY Qty: 30 RF: 0 carvedilol [Coreg] 3.125 mg tablet 3.125 mg PO BID Qty: 60 RF: 0 spironolactone 25 mg tablet 25 mg PO DAILY Qty: 30 RF: 0 Entresto 24-26 mg tablet 1 tab PO BID Qty: 60 RF: 0 atorvastatin [Lipitor] 20 mg tablet 20 mg PO QHS Qty: 30 RF: 0 furosemide [Lasix] 40 mg tablet 40 mg PO BID Qty: 60 RF: 0 Continued insulin aspart U-100 100 UNITS/ML insulin pen 25 units SC TIDCM RF: 0 semaglutide 0.25 MG/0.2 ML pen injector 0.25 mg SQ QWEEK RF: 0 insulin degludec 100 UNIT/ML solution 40 unit SQ BID RF: 0 levofloxacin 500 mg Tablet 500 mg PO DAILY RF: 0 Discontinued triamterene 100 mg capsule 100 mg PO BID RF: 0 Referrals / Follow Up: Matias Graves MD [Primary Care Provider] - Within 2 Weeks (Please call to setup an appointment. ) Gustavo Wallace MD [STAFF PHYSICIAN] - 07/07/21 9:15 am Disposition Disposition (needs filled in before D/C Order can be placed): Home, Self Care Charges/Coding Addendum Addendum: Dr. Alexander: I personally reviewed the chart and examined the patient, and agree with the above findings. 60-year-old male with a previous history of reduced ejection fraction 45 to 50% with stage I diastolic dysfunction presents with shortness of breath and leg swelling has been worsening over the last several months. He did have an elevated D-dimer and CT of the chest was negative, venous duplex is pending. Echo demonstrates a severely reduced EF at 20% with left ventricular dilatation. Cardiology will be consulted, will continue with his Lasix. Since he started Lasix, he is down about 3 L. 06/17/2021: Met with cardiology this morning and did not want to have a heart catheter take any of the medications because did not believe he had any heart disease. I had extensive discussion with him including the fact that his ejection fraction was now 20% which mostly cause would be coronary artery disease in the room to determine that and treated is to do a heart cath. I discussed with him that his EF is low enough that he could potentially if he gets worse have sudden cardiac from arrhythmias. He states that he was not aware that it was that serious and would like now to proceed with a heart cath and take the medications as initially requested per cardiology. Plan will be for heart cath in the morning. 06/18/2021: Had his cardiac cath today which showed no coronary artery disease, and discussion with cardiology this is likely a cardiomyopathy secondary to uncontrolled diabetes. Looking through his labs she is never had a normal A1c, his A1c on admission was 7.8, the one before that a year ago was 11.3. Did discuss with him lifestyle modifications, diet and exercise as well as continue to take his diabetic medications appropriately. He is also okay with taking the medications including beta-german as well as Aldactone and Entresto. We will continue with IV diuresis for today and then switch to oral tomorrow and potentially discharge if he is feeling okay. 06/19/2021: Heart cath not show any coronary artery disease likely secondary to diabetes. Had an extensive discussion with lifestyle modifications. He is feeling much better after losing about 34pounds with diuresis today. He will go home on a beta-german as well as the Lasix. He was also given a prescription for Entresto and Aldactone. I discussed with him the need to take all these medications as prescribed and follow-up with cardiology as an outpatient. He will likely need a repeat echo in 4 to 6 weeks with cardiology. He will also likely need cardiac rehab I did tell him to take it slow with initiating an exercise routine and I discussed this with cardiology. I discussed the plan for discharge today and he discussed understanding of the risk and benefits of going home and would like to go home today. Visit Charges Inpatient E&M: 11888 Disch Hosp
--- NOTE | 2021-06-19 15:17 | NURSING ---
Read and reviewed SN documentation. Plan of Care reviewed with SN
--- NOTE | 2021-06-22 15:22 | CASEMGMT ---
MARKOS DC F/u Call DC Date: 06/19/21 DC Diagnosis: Heart Failure DC Disposition: Home Lace/Strata: 08/21 Called patient listed cell phone on demographics. Patient answered, this medical writer introduced self and role. Patient states that he is doing good. Confirmed picked up all his DC medications and denies any issues, questions or concerns with ACI, medications, or f/u. Thanked patient for choosing care here at [facility] and phone conversation ended. MARKOS Murray
== END 2021-06-19 13:05 | disposition home or self-care (01) | DRG 287 ==
LOC: ED 20:12 → PCU 06-16 00:12
PROVIDERS: Nurse Practitioner Family; Physician Assistant; Admitting Provider Hospitalist; Emergency Provider Student in an Organized Health Care Education/Training Program; PCP Family Medicine; Visit Provider Family Medicine
DX: I50.23 Acute on chronic systolic (congestive) heart failure (principal); R18.8 Other ascites; Z68.41 Body mass index [BMI] 40.0-44.9, adult; I42.9 Cardiomyopathy, unspecified; I25.10 Atherosclerotic heart disease of native coronary artery without angina pectoris; E11.65 Type 2 diabetes mellitus with hyperglycemia; E66.01 Morbid (severe) obesity due to excess calories; I73.9 Peripheral vascular disease, unspecified; Z79.4 Long term (current) use of insulin; Z80.0 Family history of malignant neoplasm of digestive organs; Z90.49 Acquired absence of other specified parts of digestive tract; E11.42 Type 2 diabetes mellitus with diabetic polyneuropathy
CPT/HCPCS: 36415; 71045; 71275; 74177; 76705; 80048; 80053; 80061; 80076; 81001; 82962; 83036; 83690; 83880; 84484; 85025; 85379; 85610; 87426; 93005; 93306; 93458; 93970; 97802; 99152; 99153; 99284; J7030; Q9957; Q9967; A4216; C1769; C1894; C8929; J1940; J3490

== ENCOUNTER → 2021-07-07 10:34 | Outpatient (CLI) | payer BC, SELFPAY ==
[2021-07-07 12:08] LABS: Anion Gap 8 (5-15); BUN 30 mg/dL (7-18); Calcium,Total 9.5 mg/dL (8.5-10.1); Chloride 101 mmol/L (98-107); EST Glomerular Filtration Rate 66 mL/min (>60); Est Glom Filt Rate - Afr Amer 80 mL/min (>60); Glucose 202 mg/dL (74-106); Potassium 4.6 mmol/L (3.5-5.1); Sodium Level 136 mmol/L (136-145)
== END ==
PROVIDERS: PCP Family Medicine; Referring Provider Nurse Practitioner Gerontology; Visit Provider Nurse Practitioner Gerontology
DX: I50.9 Heart failure, unspecified (principal)
CPT/HCPCS: 36415; 80048

== ENCOUNTER 2021-12-04 12:43 | Outpatient (CLI) | payer BC, SELFPAY ==
--- NOTE | 2021-12-04 12:46 | ECHOD_ITS ---
Reason For Study: CHF Procedure This was a 2D Doppler, Color Flow transthoracic echocardiogram. The study was technically difficult. Exam performed in department. Left Ventricle Normal LV size. Mild concentric left ventricular hypertrophy. Moderate segmental systolic dysfunction (see wall motion). The estimated ejection fraction is 35 %. Diastolic function is indeterminate. Anterio-Basal: Hypokinetic. Lateral-Basal: Not visualized. Infero-Basal: Hypokinetic. Basal inferoseptal: Hypokinetic. Mid-Anterior : Hypokinetic. Mid-Lateral : Hypokinetic. Mid- Posterior: Akinetic. Mid-Inferior: Hypokinetic. Mid-inferoseptal : Hypokinetic. Mid-anteroseptal : Hypokinetic. Anterior [place] : Hypokinetic. Inferior [place] : Hypokinetic. Lateral [place] : Akinetic. Septal [place] : Hypokinetic. Right Ventricle Normal RV size. Normal systolic function. Atria The left atrium is mildly enlarged. Normal right atrium. No doppler evidence for ASD. Mitral Valve There is mild to moderate mitral annular calcification. Extension of the mitral annular calcification on the base of the posterior mitral valve leaflet. Mild focal mitral valve calcification of the anterior leaflet. Trivial mitral valve insufficiency. Tricuspid Valve Normal tricuspid valve. Trivial tricuspid valve insufficiency. Unable to estimate RV systolic pressure/pulmonary artery pressure due to technically difficult study. Aortic Valve Trisinus/trileaflet aortic valve. Mild focal aortic valve calcification. Pulmonic Valve The pulmonic valve is not well visualized. Great Vessels Normal sized aortic root. Pericardium/Pleural No pericardial effusion. Medication Patient had a previos reaction to Definity. Definity deffered. MMode/2D Measurements & Calculations LVIDd: 5.7 cm IVSd: 1.3 cm Ao root diam: 3.4 cm LVIDs: 4.6 cm LVPWd: 1.5 cm FS: 18.9 % LAV(MOD-bp): 39.3 ml LVAd ap4: 37.1 cm2 LVAd ap2: 38.5 cm2 LAV(MOD-bp) Indexed: 17.2 ml/m2 LVLd ap4: 8.7 cm LVLd ap2: 9.3 cm LAV(MOD-sp2): 37.6 ml EDV(MOD-sp4): 131.5 ml EDV(MOD-sp2): 135.8 ml LAV(MOD-sp4): 40.9 ml EDV(sp4-el): 133.8 ml EDV(sp2-el): 134.9 ml LVAs ap4: 27.9 cm2 LVAs ap2: 28.0 cm2 LVLs ap4: 8.2 cm LVLs ap2: 8.8 cm ESV(MOD-sp4): 80.4 ml ESV(MOD-sp2): 75.0 ml ESV(sp4-el): 80.0 ml ESV(sp2-el): 75.2 ml EF(MOD-sp4): 38.9 % EF(MOD-sp2): 44.8 % EF(sp4-el): 40.2 % SV(MOD-sp4): 51.1 ml SV(MOD-sp2): 60.9 ml SV(sp4-el): 53.8 ml LA A4 area: 15.7 cm2 LA dimension(2D): 4.4 cm RA A4 area: 13.6 cm2 Doppler Measurements & Calculations MV E max david: 49.5 cm/sec Lat Peak E' David: 3.9 cm/sec Med Peak E' David: 3.7 cm/sec MV A max david: 90.7 cm/sec E/E' lat: 12.8 E/E' med: 13.2 MV E/A: 0.55 Ao V2 max: 121.5 cm/sec LV V1 max: 90.4 cm/sec PA V2 max: 79.9 cm/sec Ao max P.9 mmHg LV V1 max P.3 mmHg ECHO/Echo Complete Interpretation Summary The study was technically difficult. Moderate segmental systolic dysfunction (see wall motion). The estimated ejection fraction is 35 %. Mild concentric left ventricular hypertrophy. The left atrium is mildly enlarged. There is mild to moderate mitral annular calcification. Extension of the mitral annular calcification on the base of the posterior mitr al valve leaflet. Mild focal mitral valve calcification of the anterior leaflet. Trivial mitral valve insufficiency. Trivial tricuspid valve insufficiency. Mild focal aortic valve calcification. Unable to estimate RV systolic pressure/pulmonary artery pressure due to techni colton difficult study. Diastolic function is indeterminate. Ordering Physician: Gustavo Wallace Referring Physician: MD Star Matias Performed By: Rhonda Keith RDCS
== END 2021-12-04 23:59 | disposition home or self-care (01) ==
LOC: CVS 12:45
PROVIDERS: PCP Family Medicine; Referring Provider Internal Medicine Cardiovascular Disease; Visit Provider Internal Medicine Cardiovascular Disease
DX: I25.10 Atherosclerotic heart disease of native coronary artery without angina pectoris (principal); I42.9 Cardiomyopathy, unspecified
CPT/HCPCS: 93306

== ENCOUNTER 2021-12-24 12:05 | Outpatient (CLI) | payer BC, SELFPAY ==
[2021-12-24 13:28] LABS: Absolute Lymphocyte Count 1.62 X10^3/uL (0.83-4.51); Absolute Neutrophil Count 3.4 X10^3/uL (2.0-7.7); Basophil# 0.05 X10^3/uL; Basophil% 0.9 % (0-1); Eosinophil# 0.15 X10^3/uL; Eosinophils% 2.7 % (0-5); Hematocrit 48.6 % (40-54); Hemoglobin 16.2 g/dL (13.0-16.5); Lymphocyte # 1.62 X10^3/ul (0.83-4.51); Lymphocyte % 28.8 % (19-41); Mean Corp Hgb Conc 33.3 g/dL (32-36); Mean Corpuscular Hgb 31.6 pg (27.0-32.0); Mean Corpuscular Volume 94.7 fL (80-94); Mean Platelet Vol. 9.7 fl (6.2-12.0); Monocyte% 7.1 % (0-10); NRBC Flagged by Analyzer 0 % (0-5); Neutrophil # 3.39 X10^3/uL (2.7-7.7); Neutrophil % 60.1 % (47-70); Platelet Count 197 K/mm3 (150-450); RBC Distribution Width CV 12.3 % (11.6-14.6); RBC Distribution Width SD 43.6 fl (35.1-43.9); Red Blood Count 5.13 M/mm3 (4.6-6.2); White Blood Count 5.6 K/mm3 (4.4-11.0)
[2021-12-24 13:44] LABS: BNP,B-Type NATRIURETIC PEPTIDE 14.1 pg/mL (0-100)
[2021-12-24 13:57] LABS: Anion Gap 3 (5-15); BUN 25 mg/dL (7-18); Calcium,Total 9.6 mg/dL (8.5-10.1); Chloride 103 mmol/L (98-107); Creatinine, Serum 1.04 mg/dL (0.70-1.30); EST Glomerular Filtration Rate 78 mL/min (>60); Est Glom Filt Rate - Afr Amer 94 mL/min (>60); Glucose 172 mg/dL (74-106); Potassium 4.8 mmol/L (3.5-5.1); Sodium Level 136 mmol/L (136-145)
== END 2021-12-24 23:59 | disposition home or self-care (01) ==
LOC: LAB 12:07
PROVIDERS: Referring Provider Nurse Practitioner Gerontology; Visit Provider Nurse Practitioner Gerontology
DX: R53.83 Other fatigue (principal); I42.9 Cardiomyopathy, unspecified; I95.9 Hypotension, unspecified
CPT/HCPCS: 36415; 80048; 83880; 85025

== ENCOUNTER → 2022-06-24 | Outpatient (CLI) | payer BC, SELFPAY ==
--- NOTE | 2022-06-24 12:53 | ECHOL_ITS ---
Reason For Study: CMP Procedure This was a limited 2D transthoracic echocardiogram. The study was technically difficult. Limited views were obtained. Exam performed in department. Left Ventricle Mildly dilated left ventricle. Mild global left ventricular systolic dysfunction. The estimated ejection fraction is 45 %. Unable to assess diastolic dysfunction. Mid-Anterior : Hypokinetic. Mid- Lateral : Hypokinetic. Mid-Posterior: Hypokinetic. Mid-Inferior: Hypokinetic. Mid-inferoseptal : Hypokinetic. Mid-anteroseptal : Hypokinetic. Pinch : Hypokinetic. Right Ventricle Normal RV size. Normal systolic function. Atria The left atrium is moderately enlarged. Normal right atrium. Mitral Valve There is mild mitral annular calcification. Extension of the mitral annular calcification onto the base of the posterior mitral valve leaflet. Tricuspid Valve Normal tricuspid valve. Aortic Valve Trisinus/trileaflet aortic valve. Mild focal aortic valve calcification. Pulmonic Valve The pulmonic valve is not well visualized. Great Vessels Normal sized aortic root. Pericardium/Pleural No pericardial effusion. MMode/2D Measurements & Calculations LVIDd: 5.9 cm IVSd: 1.4 cm Ao root diam: 3.5 cm LVIDs: 4.3 cm LVPWd: 1.1 cm FS: 26.7 % LAV(MOD-bp): 50.8 ml LVAd ap4: 46.3 cm2 SV(MOD-sp4): 74.4 ml LAV(MOD-bp) Indexed: 21.3 ml/m2 LVLd ap4: 8.9 cm LAV(MOD-sp2): 39.7 ml EDV(MOD-sp4): 196.0 ml LAV(MOD-sp4): 63.8 ml EDV(sp4-el): 204.9 ml LVAs ap4: 33.3 cm2 LVLs ap4: 8.0 cm ESV(MOD-sp4): 121.6 ml ESV(sp4-el): 117.6 ml EF(MOD-sp4): 38.0 % EF(sp4-el): 42.6 % SV(sp4-el): 87.3 ml LA A4 area: 21.4 cm2 LA dimension(2D): 4.1 cm RA A4 area: 18.9 cm2 ECHO/Echo, Limited Study Interpretation Summary The study was technically difficult. Limited views were obtained. Mildly dilated left ventricle. Mild global left ventricular systolic dysfunction. The estimated ejection fraction is 45 %. The left atrium is moderately enlarged. There is mild mitral annular calcification. Extension of the mitral annular calcification onto the base of the posterior mi tral valve leaflet Mild focal aortic valve calcification. Unable to assess diastolic dysfunction. Ordering Physician: Gustavo Wallace Referring Physician: Gustavo Wallace Performed By: Lupe José RCS
== END | disposition home or self-care (01) ==
LOC: CVS 12:52
PROVIDERS: Referring Provider Internal Medicine Cardiovascular Disease; Visit Provider Internal Medicine Cardiovascular Disease
DX: I42.9 Cardiomyopathy, unspecified (principal)
CPT/HCPCS: 93308

== ENCOUNTER 2023-10-30 19:13 | Emergency (ER) | payer BC, SELFPAY ==
[2023-10-30 19:15] VITALS: BP 116/69; PULSE 72; RESP 18; TEMP 36.1; O2SAT 99; BMI 42.3
[2023-10-30 19:17] VITALS: BP 116/69; PULSE 72; RESP 18; TEMP 36.1; O2SAT 99
--- OUTSIDE RECORDS SUMMARY | 2023-10-30 19:28 | XMS RPT_ITS | CCD ---
Author Name Unknown Address [id number] [place] [address] Organization [facility] Care Team Providers Care Rn Documentation Name Role Phone Shruthi Lemus Unavailable Unavailable Allna Shruthichristel Kraus Unavailable Unavailable Marc Hitchcock Unavailable Unavailable Marc Hitchcock Unavailable Unavailable Marc Hitchcock Unavailable Unavailable Marc Hitchcock Unavailable Unavailable Marc Hitchcock MD Primary Care Provider [phone] Kathy Sandoval RPh Unavailable [place] Shruthi M Unavailable Unavailable Unavailable Dr. Marc Hitchcock Primary Care Unav ailable Arturo Lemusn Referring Unavailable Alexandrl Shruthi Attending Unavailable Newbill, Shruthi Primary Care Unavailable Newbill, Shruthi Referring Unavailable Newbill Shruthi Attending Unavailable Newbill Shruthi COOK Primary Care Provider [phone] Shruthi Lemus PA-C Unavailable ARTURO LEMUSN M Attending Unavailable NEWBILL, SHRUTHI M Referring Unavailable NEWBILL, SHRUTHI M Primary Care Unavailable NEWBILL, SHRUTHI M Attending Unavailable NEWBILL, SHRUTHI M Primary Care Unavailable NEWBILL, SHRUTHI M Attending Unavailable NEWBILL, SHRUTHI M Primary Care Unavailable Unavailable Primary Care Provider Unavailabl e Newbill Shruthi COOK Primary Care Provider [place] SHRUTHI M Referring Unavailable NEWBILL, SHRUTHI M Attending Unavailable RAYMOND PETERSON Attending Unavailable RAYMOND PETERSON Referring Unavailable RAYMOND PETERSON Admitting Unavaila ble RAYMOND PETERSON SEAN M Primary Care Unavailable Allergies Allergy Classification Reported Allergen(s) Allergy Type Date of Onset Reaction(s) Facility (1 source) Penicillins; Translations: [penicillins] Propensity to adverse reactions to drug (disorder) [facility] Repository (3 sources) Iodinated Contrast Media; Translations: [IODINATED CONTRAST MEDIA] Propensity to adverse reactions 3 [facility] (1 source) GADOLINIUM-CONTA INING CONTRAST MEDIA; Translations: [GADOLINIUM-CONT AINING CONTRAST MEDIA] Propensity to adverse reactions to drug (disorder) 3 [facility] Repository Medications Current Medications Medication Drug Class(es) Dates Sig (Normalized) Sig (Original) 0.05 ml aflibercept 40 mg/ml injection (5 sources) Vascular Endothelial Growth Factor Inhibitor Start: 10-19-2022 End: 10-18-2023 Eylea 2 mg/0.05 mL Completed/Discontinued Medications Medication Drug Class(es) Dates Sig (Normalized) Sig (Original) faricimab-svoa (VABYSMO INTRAVITREAL) (1 source) faricimab-svoa ( VABYSMO INTRAVITREAL) by INTRAVITREAL route. Just had 07/27 once a month both eyes retinapathy 0 Active Problems Active Problems Problem Classification Problem Date Documented Da te Episodic/Chronic Abdominal hernia (17 sources) Incisional hernia; Translations: [Incisional hernia without obstruction or gangrene] Onset: 07-13-2007 Resolved: 10-22-2022 07-13-2007 Episodic Congestive heart failure; nonhypertensive (13 sources) Heart failure; Translations: [Heart failure, unspecified] Onset: 10-22-2022 10-22-2022 Chronic Diabetes mellitus with complications (5 sources) Type 2 diabetes mellitus; Translations: [Type 2 diabetes mellitus with unspecified complications] Onset: 07-27-2007 01-02-2018 Chronic Diabetes mellitus without complication (14 sources) Diabetes mellitus; Translations: [Diabetes mellitus without mention of complication, type II or unspecified type, not stated as uncontrolled] Onset: 10-22-2022 01-17-2023 Chronic Disorders of lipid metabolism (3 sources) Pure hyperglyceridemia; Translations: [Pure hyperglyceridemia] Onset: 09-28-2007 09-28-2007 Chronic Essential hypertension (11 sources) Hypertensive disorder; Translations: [Unspecified essential hypertension] Onset: 10-22-2022 10-22-2022 Chronic Influenza (2 sources) Influenza-like illness; Translations: [Influenza with other respiratory manifestations] Episodic Other aftercare (4 sources) terminal 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)] Onset: 10-22-2022 Episodic Other congenital anomalies (3 sources) Congenital pes planus; Translations: [Congenital pes planus, unspecified foot] Onset: 04-08-2009 04-08-2009 Chronic Other nutritional; endocrine; and metabolic disorders (3 sources) Body mass index 40+ - severely obese; Translations: [Morbid (severe) obesity due to excess calories] Onset: 12-16-2017 12-16-2017 Chronic Other screening for suspected conditions (not mental disorders or infectious disease) (3 sources) Patient encounter status; Translations: [Encounter for screening for malignant neoplasm of prostate] Onset: 07-21-2023 07-21-2023 Episodic Other skin disorders (1 source) Ingrowing nail; Translations: [Ingrowing nail] 01-17-2023 Episodic Residual codes; unclassified (4 sources) Insomnia; Translations: [Other insomnia] Onset: 01-17-2023 01-17-2023 Chronic Residual codes; unclassified (1 source) Other insomnia; Translations: [Other insomnia] Onset: 01-17-2023 Chronic Past or Other Problems Problem Classification Problem Date Documented Da te Episodic/Chronic Open wounds of extremities (8 sources) Disorder of foot; Translations: [Open wound of foot except toe(s) alone, without mention of complication] Onset: 10-22-2022 Resolved: 10-22-2022 10-22-2022 Episodic Other connective tissue disease (3 sources) Soft tissue lesion of shoulder region; Translations: [Bursopathy, unspecified] Onset: 05-09-2009 05-09-2009 Episodic Other skin disorders (2 sources) Ingrowing nail; Translations: [Ingrowing nail] Onset: 01-17-2023 Episodic Residual codes; unclassified (10 sources) Body fluid retention; Translations: [Other fluid overload] Onset: 10-22-2022 10-22-2022 Episodic Skin and subcutaneous tissue infections (3 sources) Paronychia of finger; Translations: [Cellulitis of right finger] Onset: 12-20-2022 01-17-2023 Episodic Unclassified (1 source) Onset: 07-21-2023 07-21-2023 Results Test Name Value Interpretation Reference Range Facil ity Vital Signs Date Time Vital Sign Value Performing Clinician Facility 08-04-2023 10:00-0500 Diastolic blood pressure 71 mm[Hg] Pacc 2 Work Phone: [facility] 08-04-2023 10:00-0500 Systolic blood pressure 120 mm[Hg] Pacc 2 Work Phone: [facility] 08-04-2023 09:54-0500 Body height 172.7 cm Pacc 2 Work Phone: [facility] 08-04-2023 09:54-0500 Body weight 123.83 kg Pacc 2 Work Phone: [facility] 08-04-2023 09:54-0500 Heart rate 77 /min Pacc 2 Work Phone: [facility] 08-04-2023 09:54-0500 Respiratory rate 20 /min Pacc 2 Work Phone: [facility] 08-04-2023 09:54-0500 SaO2% (BldA) [Mass fraction] 97 % Pacc 2 Work Phone: [facility] 07-21-2023 10:44-0400 Body height 172.7 cm Shruthi Newbill PA-C Work Phone: [facility] 07-21-2023 10:44-0400 Body mass index (BMI) [Ratio] 41.59 kg/m2 Shruthi Newbill PA-C Work Phone: [facility] 07-21-2023 10:44-0400 Body temperature 97 [degF] Shruthi Newbill PA-C Work Phone: [facility] 07-21-2023 10:44-0400 Body weight 124.06 kg Shruthi Newbill PA-C Work Phone: [facility] 07-21-2023 10:44-0400 Diastolic blood pressure 78 mm[Hg] Shruthi Newbill PA-C Work Phone: [facility] 07-21-2023 10:44-0400 Heart rate 73 /min Shruthi Newbill PA-C Work Phone: [facility] 07-21-2023 10:44-0400 Systolic blood pressure 147 mm[Hg] Shruthi Newbill PA-C Work Phone: [facility] 01-17-2023 10:27-0400 Body height 172.7 cm Shruthi Newbill PA-C Work Phone: [facility] 01-17-2023 10:27-0400 Body mass index (BMI) [Ratio] 43.03 kg/m2 Shruthi Newbill PA-C Work Phone: [facility] 01-17-2023 10:27-0400 Body weight 128.37 kg Shruthi Newbill PA-C Work Phone: [facility] 01-17-2023 10:27-0400 Diastolic blood pressure 76 mm[Hg] Shruthi Newbill PA-C Work Phone: [facility] 01-17-2023 10:27-0400 Heart rate 67 /min Shruthi Newbill PA-C Work Phone: [facility] 01-17-2023 10:27-0400 SaO2% (BldA) [Mass fraction] 96 % Shruthi Newbill PA-C Work Phone: [facility] 01-17-2023 10:27-0400 Systolic blood pressure 138 mm[Hg] Shruthi Newbill PA-C Work Phone: [facility] 09-22-2022 16:00-0500 Body height 172.72 cm Shruthi Mitchell Newbill Work Phone: [facility] Work Phone: 09-22-2022 16:00-0500 Body mass index (BMI) [Ratio] 40.98 kg/m2 Shruthi Lemus Work Phone: [facility] Work Phone: 09-22-2022 16:00-0500 Body surface area Derived from formula 2.32 m2 Shruthi Lemus Work Phone: [facility] Work Phone: 09-22-2022 16:00-0500 Body weight 122.25 kg Shruthi Lemus Work Phone: [facility] Work Phone: 09-22-2022 16:00-0500 Diastolic blood pressure 86 mm[Hg] Shruthi Strangel Work Phone: [facility] Work Phone: 09-22-2022 16:00-0500 Heart rate 96 /min Shruthi Lemus Work Phone: [facility] Work Phone: 09-22-2022 16:00-0500 SaO2% (BldA) [Mass fraction] 98 % Shruthi Lemus Work Phone: [facility] Work Phone: 09-22-2022 16:00-0500 Systolic blood pressure 122 mm[Hg] Shruthi Lemus Work Phone: [facility] Work Phone: 07-14-2022 11:32-0400 Body height 172.72 cm Shruthi Lemus Work Phone: [facility] Work Phone: 07-14-2022 11:32-0400 Body mass index (BMI) [Ratio] 43.14 kg/m2 Shruthi M Newbill Work Phone: [facility] Work Phone: 07-14-2022 11:32-0400 Body surface area Derived from formula 2.37 m2 Shruthi Lemus [facility] Phone[facility] Work Phone: 07-14-2022 11:32-0400 Body temperature 97.1 [degF] Shruthi Lemus Work Phone: [facility] Work Phone: 07-14-2022 11:32-0400 Body weight 128.69 kg Shruthi Lemus Work Phone: [facility] Work Phone: 07-14-2022 11:32-0400 Diastolic blood pressure 80 mm[Hg] Shruthi Lemus Work Phone: [facility] Work Phone: 07-14-2022 11:32-0400 Heart rate 78 /min Shruthi Lemus Work Phone: [facility] Work Phone: 07-14-2022 11:32-0400 SaO2% (BldA) [Mass fraction] 96 % Shruthi Lemus Work Phone: [facility] Work Phone: 07-14-2022 11:32-0400 Systolic blood pressure 153 mm[Hg] Shruthi Lemus Work Phone: [facility] Work Phone: Encounters Encounter Date Encounter Type Care Provider Facility Start: 08-29-2023 End: 08-29-2023 ambulatory RAYMOND [facility]CAR[facility] [place] Facility:[id number] Start: 08-24-2023 End: 08-25-2023 ambulatory [facility] Start: 08-24-2023 End: 08-24-2023 Subsequent hospital visit by physician Raymond Peterson MD Work Phone: [facility] - [place] Procedures Date Procedure Procedure Detail Performing Clinician Start: 08-24-2023 Hemoglobin glycosylated a1c Raymond Peterson MD Work Phone: Start: 08-01-2023 COMPLETE BLOOD COUNT WITH DIFFERENTIAL Jamila Rushing MD Start: 08-01-2023 Comprehensive metabo lic 2000 panel - Serum or Plasma Jamila Rushing MD Start: 08-01-2023 Hemoglobin A1c/Hemoglobin.total in Blood Jamila Rushing MD Start: 08-01-2023 Lipid panel Jamila Barrett Start: 08-01-2023 TSH WITH REFLEX TO T4, FREE Jamila Rushing MD Start: 07-21-2023 FOLLOW UP IN FAMILY MEDICINE SHRUTHI LEMUS Start: 01-17-2023 Excision nail matrix permanent removal Shruthi Lemus PA-C Work Phone: Start: 07-15-2022 Lipid 1996 panel - S milvia or Plasma Shruthi Lemus PA-C Work Phone: Start: 07-11-2019 Adult depression scr eening assessment Marc Hitchcock MD Work Phone: Cholecystectomy Shruthi kothari Work Phone: Plan of Treatment Date Care Activity Detail Author Start: 06-12-2026 PROSTATE CANCER SCREENING DISCUSSION PROSTATE CANCER SCREENING DISCUSSION [facility] Start: 08-01-2024 Hepatitis B surface antibody level LDL Cholesterol [facility] Start: 12-29-2023 End: 12-29-2023 Patient encounter procedure 12/29/2023 10:30 AM EDT Office Visit [facility] [address] [place] [id number] Shruthi Lemus PA-C [address] [facility] [place] [address] [facility] Start: 11-01-2023 Hemoglobin A1c/Hemoglobin.total in Blood HbA1C [facility] Start: 09-09-2023 COLOGUARD (FIT-DNA) COLOGUARD (FIT-D NA) [facility] Start: 09-09-2023 COLORECTAL CANCER SCREENING COLORECTAL CANCER SCREENING [facility] Start: 07-21-2023 End: 07-21-2024 CBC panel - Blood by Automated count CBC Lab Routine Type 2 diabetes mellitus without complication, with long-term current use of insulin (CMS/HCC) Primary hypertension Chronic congestive heart failure, unspecified heart failure type (CMS/HCC) Expected: 07/21/2023 (Approximate), Expires: 07/21/2024 [facility] Work Phone: Immunizations Immunization Date Immunization Notes Care Provider Fa debra 08-20-2011 hepatitis B vaccine, adult dosage Marc Hitchcock MD Work Phone: [facility] Work Phone: 07-21-2011 measles, mumps and rubella virus vaccine Marc Hitchcock MD Work Phone: [facility] Work Phone: 07-09-2011 hepatitis B vaccine, adult dosage Marc Hitchcock MD Work Phone: [facility] Work Phone: Payers Date Payer Category Payer Unknown [id number] 2022 Unknown [id number] 2016 Unknown 2016 Unknown [employer] EM[employer]OY[employer] [id number] 2016-Present [address] [address] [place] [address] O [id number] 2016 Unknown [id number] 1962 Unknown [id number] 1962 Unknown [id number] 1962 Unknown [id number] 1962 Unknown [id number] 1962 Unknown [id number] 1962 Unknown [id number] 1962 Unknown [id number] Social History Date Type Detail Facility Start: 04-12-2018 End: 08-02-2023 Tobacco smoking status NHIS Ex-smoker [facility] End: 09-19-2020 History of tobacco use Cigar Smoker [facility] Start: 04-12-2018 End: 08-02-2023 Tobacco use and exposure Former smokeless tobacco user [facility] End: 07-13-2005 History of tobacco use Snuff User [facility] Start: 04-28-2021 End: 08-04-2023 Alcohol intake Current drinker of alcohol (finding) [facility] Start: 04-28-2021 History SDOH Alcohol Comment rarely [facility] Start: 04-12-2018 End: 08-02-2023 Tobacco Comment just smoked 1 month summer 2016 [facility] Start: 1960 Sex Assigned At Not on file [facility] Start: 06-08-2021 End: 07-21-2023 Exposure to SARS-CoV-2 (event) Not sure [facility] Start: 01-17-2023 End: 08-04-2023 Drinks caffeinated tea Drinks caffeinated tea [facility] ic Start: 01-17-2023 [facility] Work Phone: Start: 01-17-2023 Tobacco use and exposure Smokeless tobacco non-user [facility] Work Phone: Start: 01-17-2023 End: 08-04-2023 Tobacco use panel [facility] Start: 10-22-2022 Alcohol Comment Rarely consumes alco hol [facility] Work Phone: [facility] smoking consumption unknown [facility] End: 09-19-2020 History of tobacco use Current smoker [facility] Adult Depression Screening Assessment 0 [facility] Medical Equipment Procedure Code Equipment Code Equipment Origin al Text Equipment Identifier Dates Start: 12-25-2014 Clinical Notes 04-10-2009 to 08-29-2023 Murtaza Woodward PA-C - 08/04/2023 11:04 AM Murtaza Huston PA-C - 08/04/2023 10:18 AM Murtaza Huston PA-C - 08/04/2023 10:00 AM ESTPatient Instructions Note Date & Type Note Facility 08-29-2023 Note HNO ID: [id number] Author: Logan Quintana APRN.CRNA Service: ? Author Type: Nurse Well Testing Operator Type: Anesthesia Procedure Notes Filed: 08/29/2023 1:34 PM Note Text: ANESTHESIOLOGY PROCEDURE NOTE Airway General Information Procedure Start Time/Medication Administration: 08/29/2023 1:27 PM Patient location during procedure: OR Timeout Performed Pre-procedure: timeout performed Consent Obtained: Yes Patient identity confirmed: arm band Staffing Anesthesiologist: Gustavo Wisdom DO EXCELSIOR MACHINE TENDER: Logan Quintana APRN.EXCELSIOR MACHINE TENDER Performed by: JOY Indications and Patient Condition Indications for airway management: anesthesia Preoxygenated: yes anesthesia circuit Method: sleep Difficult Mask: No Final Airway Details Final airway type: endotracheal airway Final Endotracheal Airway: ETT Cuffed: yes Successful intubation technique: video laryngoscopy Devices used: Brunner Blade size: #4 ETT size (mm): 8.0 Measured from: lips Measurement (cm): 24 Placement verified by: capnometry Cormack-Lehane Classification: grade I - full view of glottis Number of attempts at approach: 1 Failed airway: no Unrecognized esophageal intubation: no Airway not difficult SIGNATURE: Logan Quintana APRN.CRNA, APRN.CRNA PATIENT NAME: Oly Smith DATE: August 29, 2023 TIME: 1:34 PM CSN: [id number] [facility] 08-26-2023 Note HNO ID: [id number] Author: Naida Tiwari RN Service: Nursing Author Type: Registered Nurse Type: Progress Notes Filed: 08/26/2023 3:04 PM Note Text: PRE-PROCEDURE INSTRUCTIONS TO PREPARE FOR YOUR PROCEDURE: Your arrival time for your procedure is 1100. Do NOT eat any solid foods after MIDNIGHT the night prior to your procedure - this includes gum or mints. You can drink clear liquids* up until 0900, which is 2 hours before your arrival time. *Clear liquids = water, carbohydrate drink (sports drink that is clear or yellow in color), Ensure Pre-Surgery (given by EMERALD or your DrKeven), fruit juice without pulp (apple/cranberry), clear tea, black coffee (no cream). NO CARBONATED BEVERAGES AND NO ALCOHOL. Shower the morning of the procedure, put on clean clothes, and have clean sheets for your bed to help prevent infection after your procedure. Leave all valuables such as jewelry including rings, piercings, wallets, and purses at home. Wear comfortable, loose-fitting clothing. If you wear glasses or contacts, please bring a case. SPECIAL INSTRUCTIONS: If instructed, bring your first voided urine specimen with you. If you were provided skin preparation to use prior to your procedure, complete this as directed. If you were provided Ensure Pre-Surgery drink, you need to drink this at . This should be consumed quickly (in less than 5 minutes, rather than sipped over time) If you use crutches or a walker, bring them with you. If you have a home CPAP/BIPAP machine, bring it with you. If you were instructed to complete a fleets enema or bowel prep, complete as directed. Bring copy of Living Will/Power of Vendor Manager. Do not smoke or chew. If you use tobacco, quit or at least cut down before surgery. Do not smoke or chew after midnight the day before your surgery. This effects bleeding, infection, healing, and so much more. Do not take any Diet or Herbal Supplements 2 weeks prior to your surgery date. Please notify your physician if there is any change in your physical condition such as a cold, cough, fever, sore throat, or skin irritation near the surgical site. Visitors under the age of 14 are restricted in the Surgery Center. UPON ARRIVAL: Access to [facility] (the glass building) is located on [address] Occ Therapist parking is available for your convenience from 5am-5pm- there is a $5.00 charge for this service. Take the elevators directly inside the entrance to the 1st Floor Surgery Lobby. Sign in at the podium located to the left when you get off the elevators. A payment may be expected at the time of service. One visitor may come back to the preoperative area with you. The preoperative staff will be reviewing your medical history, please let them know if you prefer not to have a visitor with you during this time. Once you are ready for surgery, two visitors at a time are permitted in your preoperative room. PATIENT MEDICATION INSTRUCTIONS Please read below carefully for your personalized instructions. Medications: If you are on blood thinner or anticoagulants including aspirin, please confirm with your surgical team on when to stop these medications. Unless instructed differently by your surgical team, stay on all of your medications until your surgery. Pre-Surgery Med Instructions Medication Instructions faricimab-svoa (VABYSMO INTRAVITREAL) traZODone (DESYREL) 50 mg tablet sacubitril-valsartan (ENTRESTO) 24-26 mg tablet DO NOT TAKE MORNING OF SURGERY carvedilol (COREG) 3.125 mg tablet Take morning of surgery with a sip of water, no other fluids spironolactone (ALDACTONE) 25 mg tablet DO NOT TAKE MORNING OF SURGERY furosemide (LASIX) 40 mg tablet DO NOT TAKE MORNING OF SURGERY empagliflozin (JARDIANCE) 10 mg tablet Hold 3 days before surgery insulin degludec (TRESIBA FLEXTOUCH U-200) 200 unit/mL (3 mL) injection Take 1/2 your morning dose the day of surgery insulin aspart U-100 (NOVOLOG FLEXPEN U-100 INSULIN) 100 unit/mL (3 mL) DO NOT TAKE MORNING OF SURGERY Insulin [place], Disposable, (BD ULTRA-FINE ARLYN PEN NEEDLE) 32 gauge x 5/32 Lancets (MICROLET LANCET) lancets - Accucheck day of surgery. If you take any medications for erectile dysfunction-Cialis (Tadalafil), Levitra, Staxyn (Vardenafil) Viagra (Sildenenafil please do not take these for 48 hours before surgery. If you have any medication changes between receiving these instructions and your surgery date, please provide this updated information with the nurse who calls you the week day prior to your surgical procedure so we can update your list and provide you with updated instructions for the morning of your procedure. [facility] 08-04-2023 Note HNO ID: [id number] Author: Murtaza Woodward PA-C Service: ? Author Type: Physician Aviation Technician Aircraft Type: Progress Notes Filed: 08/04/2023 11:32 AM Note Text: PACC Consult SERVICE DATE: 08/04/2023 SERVICE TIME: 11:05 AM PRIMARY CARE PHYSICIAN: Shruthi Lemus PA-C REASON FOR VISIT: Oly Smith is a 62 year old male who is scheduled for Herniorrhaphy of incisional hernia at the request of Dr. Peterson for consultation. My final recommendation will be communicated back to the requesting physician by way of shared medical record or letter. The patient has the following: ACTIVE PROBLEM LIST Incisional Hernia Without Mention of Obstruction Or Gangrene Type 2 diabetes mellitus with complication ([facility]) Pure Hyperglyceridemia Congenital Pes Planus Disorders of Bursae and Tendons in Shoulder Region, Unspecified Obesity, Class Iii, Bmi 40-49.9 (Morbid Obesity) ([facility]) Preop Testing Subjective CHIEF COMPLAINT: Hernia 62yo [place] male, exsmoker of rare cigar. PMH: HTN, CHF ([facility]), NICM on Entresto/Coreg/aldactone/Lasix, tachycardia, IDDM ([facility]), macular degeneration/retinopathy, R toe amp from trauma 2017. Had an attempted lap renae that was converted to open in 2004 and developed an incisional hernia afterwards. 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 Congestive heart failure (HCC) 2020 Sees at [facility] Diabetes mellitus without mention of complication Hemorrhage of gastrointestinal tract, unspecified Hypertension Hypopotassemia Hyposmolality and/or hyponatremia Morbid obesity ([facility]) Tachycardia, unspecified Type 2 diabetes mellitus with both eyes affected by moderate nonproliferative retinopathy and macular edema, with long-term current use of insulin ([facility]) followed by PCP- sees Dr Mendoza for eyes PAST SURGICAL HISTORY Procedure Laterality Date AVASTIN (BEVACIZUMAB) 1.25MG INTRAVITREAL INJECTION OD (RIGHT EYE) Right 03/31/2021 AVASTIN (BEVACIZUMAB) 1.25MG INTRAVITREAL INJECTION OS (LEFT EYE) Left 03/31/2021 CHOLECYSTECTOMY W/CHOLANGIOGRAPHY 10/23/2005 EYLEA (AFLIBERCEPT) 2MG INTRAVITREAL INJECTION OD (RIGHT EYE) Right 06/30/2021 EYLEA (AFLIBERCEPT) 2MG INTRAVITREAL INJECTION OS (LEFT EYE) Left 06/30/2021 PAST SURGICAL HISTORY OF Right 06/05/2018 Right minh amputation met and debridement (07/04/18) REMV CATARACT EXTRACAP,INSERT LENS Left 06/2023 FAMILY HISTORY Problem Relation Age of Onset Cancer Mother Cataract Maternal Grandmother Amblyopia Daughter Glaucoma No Family History Detached Retina No Family History Macular Degen No Family History Blindness No Family History SOCIAL HISTORY: Social History Tobacco Use Smoking status: Former Types: Cigars Quit date: 2020 Years since quittin.8 Smokeless tobacco: Former Types: Snuff Quit date: 07/13/2005 Tobacco comments: just smoked 1 month summer 2016 Vaping Use Vaping Use: Never used Substance Use Topics Alcohol use: Yes Alcohol/week: 2.0 standard drinks of alcohol Types: 2 Glasses of wine per week Drug use: No MEDICATIONS: Prior to Admission medications as of 08/04/23 1012 Medication Sig Last Dose Taking faricimab-svoa (VABYSMO INTRAVITREAL) by INTRAVITREAL route. Just had 07/27 once a month both eyes retinapathy Taking Yes traZODone (DESYREL) 50 mg tablet Take 50 mg by mouth daily at bedtime. Taking Yes sacubitril-valsartan (ENTRESTO) 24-26 mg tablet Take 1 tablet by mouth twice daily. Taking Yes carvedilol (COREG) 3.125 mg tablet Take 1 tablet by mouth twice daily. Taking Yes spironolactone (ALDACTONE) 25 mg tablet Take 1 tablet by mouth once daily. Patient taking differently: Take 25 mg by mouth every morning. Taking Yes furosemide (LASIX) 40 mg tablet Take 1 tablet by mouth once daily. Patient taking differently: Take 20 mg by mouth every morning. Taking Yes empagliflozin (JARDIANCE) 10 mg tablet Take 1 tablet by mouth once daily. Take 1 tablet once daily in the morning Patient taking differently: Take 25 mg by mouth daily with breakfast. Take 1 tablet once daily in the morning Taking Yes insulin degludec (TRESIBA FLEXTOUCH U-200) 200 unit/mL (3 mL) injection Inject 80 Units subcutaneously twice daily. Patient taking differently: Inject 72 Units subcutaneously two times a day. Taking Yes insulin aspart U-100 (NOVOLOG FLEXPEN U-100 INSULIN) 100 unit/mL (3 mL) Sliding scale from 25 units - 60 units three times daily, depending on glucose readings. Patient taking differently: Sliding scale from 25 units - 60 units three times daily, depending on glucose readings. Checks twice daily Taking Yes Insulin [place], Disposable, (BD ULTRA-FINE ARLYN PEN NEEDLE) 32 gauge x 532 Use one needle for each dose. 3/day. Taking Yes Lancets (MICROLET LANCET) lancet (more content not included)... [facility] 08-04-2023 Note HNO ID: [id number] Author: Murtaza Woodward PA-C Service: ? Author Type: Physician Aviation Technician Aircraft Type: Progress Notes Filed: 08/04/2023 11:32 AM Note Text: Summary: DOS meds PATIENT MEDICATION INSTRUCTIONS Please read below carefully for your personalized instructions. Medications: If you are on blood thinner or anticoagulants including aspirin, please confirm with your surgical team on when to stop these medications. Unless instructed differently by your surgical team, stay on all of your medications until your surgery. Pre-Surgery Med Instructions Medication Instructions faricimab-svoa (VABYSMO INTRAVITREAL) traZODone (DESYREL) 50 mg tablet sacubitril-valsartan (ENTRESTO) 24-26 mg tablet DO NOT TAKE MORNING OF SURGERY carvedilol (COREG) 3.125 mg tablet Take morning of surgery with a sip of water, no other fluids spironolactone (ALDACTONE) 25 mg tablet DO NOT TAKE MORNING OF SURGERY furosemide (LASIX) 40 mg tablet DO NOT TAKE MORNING OF SURGERY empagliflozin (JARDIANCE) 10 mg tablet Hold 3 days before surgery insulin degludec (TRESIBA FLEXTOUCH U-200) 200 unit/mL (3 mL) injection Take 1/2 your morning dose the day of surgery insulin aspart U-100 (NOVOLOG FLEXPEN U-100 INSULIN) 100 unit/mL (3 mL) DO NOT TAKE MORNING OF SURGERY Insulin [place], Disposable, (BD ULTRA-FINE ARLYN PEN NEEDLE) 32 gauge x 5/32 Lancets (MICROLET LANCET) lancets - Accucheck day of surgery. If you take any medications for erectile dysfunction-Cialis (Tadalafil), Levitra, Staxyn (Vardenafil) Viagra (Sildenenafil please do not take these for 48 hours before surgery. If you have any medication changes between receiving these instructions and your surgery date, please provide this updated information with the nurse who calls you the week day prior to your surgical procedure so we can update your list and provide you with updated instructions for the morning of your procedure. [facility] 08-04-2023 Note HNO ID: [id number] Author: Murtaza Woodward PA-C Service: ? Author Type: Physician Aviation Technician Aircraft Type: Progress Notes Filed: 08/04/2023 11:32 AM Note Text: Herniorrhaphy of incisional hernia 08/08 Ese 62yo [place] male, exsmoker of cigs/cigars. PMH: HTN, CHF ([facility]), NICM on Entresto, tachycardia, IDDM (Jardiance), remote GIB, mac degeneration, R toe amp 2018. Had an attempted lap renae that was converted to open in 2004 and developed an incisional hernia afterwards. Currently has ischemic overlying skin. Will need preop hold of Jardiance. ECHO 2021: mild conc LVH, EF 35, global hypokinesis, LAE, mild MAC LHC 2020 ([facility]): EF 20, global sev LV systolic dysfx, MV nonobs CAD, med mgmt (DOS meds done) [facility] 08-04-2023 History of Present illness Narrative [facility] Consult SERVICE DATE: 08/04/2023 SERVICE TIME: 11:05 AM PRIMARY CARE PHYSICIAN: Shruthi Lemus PA-C REASON FOR VISIT: Oly Smith is a 62 year old male who is scheduled for Herniorrhaphy of incisional hernia at the request of Dr. Peterson for consultation. My final recommendation will be communicated back to the requesting physician by way of shared medical record or letter. The patient has the following: ACTIVE PROBLEM LIST Incisional Hernia Without Mention of Obstruction Or Gangrene Type 2 diabetes mellitus with complication ([facility]) Pure Hyperglyceridemia Congenital Pes Planus Disorders of Bursae and Tendons in Shoulder Region, Unspecified Obesity, Class Iii, Bmi 40-49.9 (Morbid Obesity) ([facility]) Preop Testing Subjective CHIEF COMPLAINT: Hernia 62yo [place] male, exsmoker of rare cigar. PMH: HTN, CHF ([facility]), NICM on Entresto/Coreg/aldactone/Lasix, tachycardia, IDDM (Jardiance), macular degeneration/retinopathy, R toe amp from trauma 2017. Had an attempted lap renae that was converted to open in 2004 and developed an incisional hernia afterwards. 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 Congestive heart failure (HCC) 2020 Sees at [facility] Diabetes mellitus without mention of complication Hemorrhage of gastrointestinal tract, unspecified Hypertension Hypopotassemia Hyposmolality and/or hyponatremia Morbid obesity ([facility]) Tachycardia, unspecified Type 2 diabetes mellitus with both eyes affected by moderate nonproliferative retinopathy and macular edema, with long-term current use of insulin ([facility]) followed by PCP- sees Dr Mendoza for eyes PAST SURGICAL HISTORY Procedure Laterality Date AVASTIN (BEVACIZUMAB) 1.25MG INTRAVITREAL INJECTION OD (RIGHT EYE) Right 03/31/2021 AVASTIN (BEVACIZUMAB) 1.25MG INTRAVITREAL INJECTION OS (LEFT EYE) Left 03/31/2021 CHOLECYSTECTOMY W/CHOLANGIOGRAPHY 10/23/2005 EYLEA (AFLIBERCEPT) 2MG INTRAVITREAL INJECTION OD (RIGHT EYE) Right 06/30/2021 EYLEA (AFLIBERCEPT) 2MG INTRAVITREAL INJECTION OS (LEFT EYE) Left 06/30/2021 PAST SURGICAL HISTORY OF Right 06/05/2018 Right minh amputation met and debridement (07/04/18) REMV CATARACT EXTRACAP,INSERT LENS Left 06/2023 FAMILY HISTORY Problem Relation Age of Onset Cancer Mother Cataract Maternal Grandmother Amblyopia Daughter Glaucoma No Family History Detached Retina No Family History Macular Degen No Family History Blindness No Family History SOCIAL HISTORY: Social History Tobacco Use Smoking status: Former Types: Cigars Quit date: 2020 Years since quittin.8 Smokeless tobacco: Former Types: Snuff Quit date: 07/13/2005 Tobacco comments: just smoked 1 month summer 2016 Vaping Use Vaping Use: Never used Substance Use Topics Alcohol use: Yes Alcohol/week: 2.0 standard drinks of alcohol Types: 2 Glasses of wine per week Drug use: No MEDICATIONS: Prior to Admission medications as of 08/04/23 1012 Medication Sig Last Dose Taking faricimab-svoa (VABYSMO INTRAVITREAL) by INTRAVITREAL route. Just had 07/27 once a month both eyes retinapathy Taking Yes traZODone (DESYREL) 50 mg tablet Take 50 mg by mouth daily at bedtime. Taking Yes sacubitril-valsartan (ENTRESTO) 24-26 mg tablet Take 1 tablet by mouth twice daily. Taking Yes carvedilol (COREG) 3.125 mg tablet Take 1 tablet by mouth twice daily. Taking Yes spironolactone (ALDACTONE) 25 mg tablet Take 1 tablet by mouth once daily. Patient taking differently: Take 25 mg by mouth every morning. Taking Yes furosemide (LASIX) 40 mg tablet Take 1 tablet by mouth once daily. Patient taking differently: Take 20 mg by mouth every morning. Taking Yes empagliflozin (JARDIANCE) 10 mg tablet Take 1 tablet by mouth once daily. Take 1 tablet once daily in the morning Patient taking differently: Take 25 mg by mouth daily with breakfast. Take 1 tablet once daily in the morning Taking Yes insulin degludec (TRESIBA FLEXTOUCH U-200) 200 unit/mL (3 mL) injection Inject 80 Units subcutaneously twice daily. Patient taking differently: Inject 72 Units subcutaneously two times a day. Taking Yes insulin aspart U-100 (NOVOLOG FLEXPEN U-100 INSULIN) 100 unit/mL (3 mL) Sliding scale from 25 units - 60 units three times daily, depending on glucose readings. Patient taking differently: Sliding scale from 25 units - 60 units three times daily, depending on glucose readings. Checks twice daily Taking Yes Insulin [place], Disposable, (BD ULTRA-FINE ARLYN PEN NEEDLE) 32 gauge x 5/32 Use one needle for each dose. 3/day. Taking Yes Lancets (MICROLET LANCET) lancets Test blood sugar(s) two times daily. Dx: 250.02. Insulin: Yes Taking Yes sacubitril-valsartan (ENTRESTO) 49-51 mg tablet Take 1 tablet by mouth. clotrimazole (ATHLETE'S FOOT, CLOTRIMAZOLE,) 1 % cream Apply to affected area two times a day. For the skin around and under abd. hernia--per DR PETERSON Medication Comments documented by Zayra Briceno Ma on 02/01/2019 at 1016. Using Relion N Insulin 20-25 units breakfast and dinner (sliding scale depending on sugar) - rarely uses. Using Relion R Insuling 20-25 units breakfast and dinner (sliding scale depending on sugar) CURRENT ALLERGIES: ALLERGIES No Known Allergies REVIEW OF SYSTEMS: PAIN ASSESSMENT: General: No weight loss, malaise or fevers. Neuro: No history of TIA's, stroke, [employer] tumor, impaired sensorium, hemiplegia, paraplegia or quadraplegia. No neurological symptoms or problems. Respiratory: No history of current cough or dyspnea, or pneumonia in the past 6 weeks. No history of respiratory/pulmonary symptoms or problems. Cardiovascular: See HPI GI: No history of GI symptoms or problems. No history of esophageal varices, recent ascites, or ETOH greater than 2 drinks per day. : No history of dysuria, frequency or incontinence,, stones or chronic kidney disease Endocrine: Diabetes Mellitus on insulin Hematology: No history of bleeding or clotting disorder. Pt is not taking anti-coagulation or platelet medications. No history of hematological symptoms or problems. Oncology: No history of CA metastasis, chemo within 30 days, or radiotherapy within 90 days. Has not lost 10% of body wt in 6 months. No history of oncological symptoms or problems. Psych: No history of psychiatric symptoms or problems. Musculoskeletal: Joint pain Skin: Negative for lesions, rash and itching. Objective PHYSICAL EXAM: VITALS: BP 120/71 Pulse 77 Resp 20 Ht 5' 8 (1.73m) Wt 273 lb (123.8kg) SpO2 97% BMI 41.52 kg/(m^2). General: Alert and oriented Skin: Normal color, no rash, no lesions. HEENT: EOM, pupils equal, round and reactive. Cardiovascular: Normal S1 & S2, no rubs, murmurs or gallops. No JVD. Pulse regular. Lungs: Normal breath sounds, no wheezes or crackles. Abdomen: Soft, non-tender, no rigidity., large hernia lower abd Extremities: No deformity, no edema or tenderness, no joint swelling or clubbing. Neurological: Normal cognition and motor skills. Pulses: Carotid and radial pulses normal +2. Diagnostic tests reviewed for today's visit: Labs from 08/01/2023 Hemoglobin A1c 8.3 TSH 1.35 H/H 16.6/51.8, PLT 199 BUN/CR 18/0.83, K5.1, GLU 75 Assessment/Plan I had the pleasure of meeting Oly in [facility] today. He's coming in for herniorrhaphy. The surgery was pushed back due to A1C 8.3. He's since had med changes and a recheck scheduled on 08/24. The patient has recently started doing kettle bells and heavy ropes for 30 min twice a wk and denies angina. 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 He has a Hx of NICM following with cardiology in [place]. He had concerns of the BB causing fatigue so he has cut this back to 3.125 bid himself. He also has been managing his diuretic on his own. He has no LE at this time. I spent a fair amount of the visit discussing his CM, potential causes, his medications and treatment goals. He would benefit from additional education with his gynaecological oncologist. He appears euvolemic at this time however. [facility] Hx lists GI hemorrhage however he has no recall of any previous GIB. METS: Do heavy work around the house, such as scrubbing floors, lifting or moving heavy furniture (8.00 METs) gets fatigue but denies angina ANESTHESIA FINDINGS: Intubation History: No history of difficult intubation Significant Anesthesia Considerations: None Airway History: No abnormal airway history PLAN This patient is optimally prepared for surgery. Planned Anesthetic: General and Per anesthesia choice Instructions Given to Patient: Instructions located in the after visit summary. Patient given verbal and written preop instructions and voices comprehension and compliance. SIGNATURE: Murtaza Woodward PA-C PATIENT NAME: Oly Smith DATE: August 04, 2023 TIME: 11:05 AM Summary: DOS meds PATIENT MEDICATION INSTRUCTIONS Please read below carefully for your personalized instructions. Medications: If you are on blood thinner or anticoagulants including aspirin, please confirm with your surgical team on when to stop these medications. Unless instructed differently by your surgical team, stay on all of your medications until your surgery. Pre-Surgery Med Instructions Medication Instructions faricimab-svoa (VABYSMO INTRAVITREAL) traZODone (DESYREL) 50 mg tablet sacubitril-valsartan (ENTRESTO) 24-26 mg tablet DO NOT TAKE MORNING OF SURGERY carvedilol (COREG) 3.125 mg tablet Take morning of surgery with a sip of water, no other fluids spironolactone (ALDACTONE) 25 mg tablet DO NOT TAKE MORNING OF SURGERY furosemide (LASIX) 40 mg tablet DO NOT TAKE MORNING OF SURGERY empagliflozin (JARDIANCE) 10 mg tablet Hold 3 days before surgery insulin degludec (TRESIBA FLEXTOUCH U-200) 200 unit/mL (3 mL) injection Take 1/2 your morning dose the day of surgery insulin aspart U-100 (NOVOLOG FLEXPEN U-100 INSULIN) 100 unit/mL (3 mL) DO NOT TAKE MORNING OF SURGERY Insulin [place], Disposable, (BD ULTRA-FINE ARLYN PEN NEEDLE) 32 gauge x 5/32 Lancets (MICROLET LANCET) lancets - Accucheck day of surgery. If you take any medications for erectile dysfunction-Cialis (Tadalafil), Levitra, Staxyn (Vardenafil) Viagra (Sildenenafil please do not take these for 48 hours before surgery. If you have any medication changes between receiving these instructions and your surgery date, please provide this updated information with the nurse who calls you the week day prior to your surgical procedure so we can update your list and provide you with updated instructions for the morning of your procedure. Herniorrhaphy of incisional hernia 08/08 Ese 62yo [place] male, exsmoker of cigs/cigars. PMH: HTN, CHF ([facility]), NICM on Entresto, tachycardia, IDDM (Jardiance), remote GIB, mac degeneration, R toe amp 2018. Had an attempted lap renae that was converted to open in 2004 and developed an incisional hernia afterwards. Currently has ischemic overlying skin. Will need preop hold of Jardiance. ECHO 2021: mild conc LVH, EF 35, global hypokinesis, LAE, mild MAC LHC 2020 ([facility]): EF 20, global sev LV systolic dysfx, MV nonobs CAD, med mgmt (DOS meds done) documented in this encounter [facility] 08-04-2023 Instructions Murtaza Woodward PA-C - 08/04/2023 10:23 AM EST PATIENT MEDICATION INSTRUCTIONS Please read below carefully for your personalized instructions. Medications: If you are on blood thinner or anticoagulants including aspirin, please confirm with your surgical team on when to stop these medications. Unless instructed differently by your surgical team, stay on all of your medications until your surgery. Pre-Surgery Med Instructions Medication Instructions faricimab-svoa (VABYSMO INTRAVITREAL) traZODone (DESYREL) 50 mg tablet sacubitril-valsartan (ENTRESTO) 24-26 mg tablet DO NOT TAKE MORNING OF SURGERY carvedilol (COREG) 3.125 mg tablet Take morning of surgery with a sip of water, no other fluids spironolactone (ALDACTONE) 25 mg tablet DO NOT TAKE MORNING OF SURGERY furosemide (LASIX) 40 mg tablet DO NOT TAKE MORNING OF SURGERY empagliflozin (JARDIANCE) 10 mg tablet Hold 3 days before surgery insulin degludec (TRESIBA FLEXTOUCH U-200) 200 unit/mL (3 mL) injection Take 1/2 your morning dose the day of surgery insulin aspart U-100 (NOVOLOG FLEXPEN U-100 INSULIN) 100 unit/mL (3 mL) DO NOT TAKE MORNING OF SURGERY Insulin [place], Disposable, (BD ULTRA-FINE ARLYN PEN NEEDLE) 32 gauge x 5/32 Lancets (MICROLET LANCET) lancets - Accucheck day of surgery. If you take any medications for erectile dysfunction-Cialis (Tadalafil), Levitra, Staxyn (Vardenafil) Viagra (Sildenenafil please do not take these for 48 hours before surgery. If you have any medication changes between receiving these instructions and your surgery date, please provide this updated information with the nurse who calls you the week day prior to your surgical procedure so we can update your list and provide you with updated instructions for the morning of your procedure. documented in this encounter [facility] 08-03-2023 Note HNO ID: [id number] Author: Jaclyn Serrano APRN.CNP Service: Anesthesiology Author Type: Nurse Practitioner Type: Progress Notes Filed: 08/03/2023 7:40 AM Note Text: Summary: dos meds PATIENT MEDICATION INSTRUCTIONS Please read below carefully for your personalized instructions. Medications: If you are on blood thinner or anticoagulants including aspirin, please confirm with your surgical team on when to stop these medications. Unless instructed differently by your surgical team, stay on all of your medications until your surgery. Pre-Surgery Med Instructions Medication Instructions traZODone (DESYREL) 50 mg tablet DO NOT TAKE MORNING OF SURGERY sacubitril-valsartan (ENTRESTO) 24-26 mg tablet DO NOT TAKE MORNING OF SURGERY carvedilol (COREG) 3.125 mg tablet Take morning of surgery with a sip of water, no other fluids spironolactone (ALDACTONE) 25 mg tablet DO NOT TAKE MORNING OF SURGERY furosemide (LASIX) 40 mg tablet DO NOT TAKE MORNING OF SURGERY empagliflozin (JARDIANCE) 10 mg tablet DO NOT TAKE MORNING OF SURGERY aflibercept (EYLEA INTRAVITREAL) insulin degludec (TRESIBA FLEXTOUCH U-200) 200 unit/mL (3 mL) injection Take 40 units AM DOS. insulin aspart U-100 (NOVOLOG FLEXPEN U-100 INSULIN) 100 unit/mL (3 mL) DO NOT TAKE MORNING OF SURGERY - Accucheck day of surgery. - Take half dose of long acting insulin (Lantus, NPH) the day of surgery. - No oral diabetic medications, no short acting insulin. If you take any medications for erectile dysfunction-Cialis (Tadalafil), Levitra, Staxyn (Vardenafil) Viagra (Sildenenafil please do not take these for 48 hours before surgery. If you have any medication changes between receiving these instructions and your surgery date, please provide this updated information with the nurse who calls you the week day prior to your surgical procedure so we can update your list and provide you with updated instructions for the morning of your procedure. [facility] 07-21-2023 History of Present illness Narrative Subjective Patient ID: Oly Smith is a 62 y.o. male who presents for Follow-up (FU 6 months, patient had cataract surgery on 06-28-2023 and doing well,/Patient has appt with surgeon in [place] for his lower abdomen hernia./). HPI Patient presents for 6-month annual follow-up and has no acute complaints. Patient recently had cataract surgery which greatly improved the patient's quality of life. Patient is able to see again. Patient had been dealing with cataracts for several years. Patient also has found a surgeon that might repair the large umbilical hernia. Patient states the umbilical herniation was secondary to laparoscopic incision made for cholecystectomy. Patient has lost 11 pounds since December. Review of Systems Constitutional: See HPI Gastrointestinal: See HPI Neurologic: Alert and oriented X4, No numbness, No tingling. All other systems are negative Objective BP 147/78 Pulse 73 Temp 36.1 C (97 F) (Temporal) Ht 1.727 m (5' 8 ) Wt 124 kg (273 lb 8 oz) BMI 41.59 kg/m Physical Exam General: Alert and oriented, No acute distress. Eye: Pupils are equal, round and reactive to light, Extraocular movements are intact, Normal conjunctiva. HENT: Normocephalic, Normal hearing, Oral mucosa is moist, No pharyngeal erythema, No sinus tenderness. Neck: Supple, Non-tender, No lymphadenopathy. Respiratory: Lungs are clear to auscultation, Respirations are non-labored, Breath sounds are equal Cardiovascular: Normal rate, Regular rhythm. Gastrointestinal: Non-distended. Very large, grossly visible umbilical/incisional hernia Musculoskeletal: Normal range of motion, Normal strength, No tenderness, No swelling, No deformity, Normal gait. Integumentary: Warm, Dry, Intact, No pallor, No rash. Neurologic: Alert, Oriented, Normal sensory, Normal motor function, No focal deficits, Cranial Nerves II-XII are grossly intact Psychiatric: Cooperative, Appropriate mood & affect. Assessment/Plan Type 2 diabetes/Hypertension: Screening labs ordered. Continue medication at current doses. Patient has arbitrarily reduced the diuretics secondary to urinary frequency. Patient's blood pressure today was borderline. CHF: Continue with cardiology and Entresto Umbilical/incisional hernia: Continue with general surgery as scheduled. Patient's insurance changed so screening labs were printed out and the patient will obtain them at [facility]. Further recommendations pending those results. Follow-up in 6 months or as needed otherwise Problem List Items Addressed This Visit Diabetes mellitus (CMS/HCC) - Primary Relevant Orders Comprehensive Metabolic Panel CBC Lipid Panel TSH with reflex to Free T4 if abnormal Hypertension Relevant Orders Comprehensive Metabolic Panel CBC Lipid Panel TSH with reflex to Free T4 if abnormal Other Visit Diagnoses Chronic congestive heart failure, unspecified heart failure type ([facility]/HCC) Relevant Orders Comprehensive Metabolic Panel CBC Lipid Panel TSH with reflex to Free T4 if abnormal Umbilical hernia without obstruction and without gangrene Encounter for screening for malignant neoplasm of prostate Relevant Orders Prostate Specific Antigen, Screen Final diagnoses: [E11.9, Z79.4] Type 2 diabetes mellitus without complication, with long-term current use of insulin (CMS/[facility]) [I10] Primary hypertension [I50.9] Chronic congestive heart failure, unspecified heart failure type (CMS/HCC) [K42.9] Umbilical hernia without obstruction and without gangrene [Z12.5] Encounter for screening for malignant neoplasm of prostate documented in this encounter [facility] Work Phone: 01-17-2023 History of Present illness Narrative Associated Order(s): Nail Removal Subjective Patient ID: Oly Smith is a 62 y.o. male who presents for Follow-up (6 MO FUV. Patient states his finger is about 80% better. ). HPI Patient presents in follow-up of diabetes and paronychia of the right index finger. Patient was treated for paronychia with doxycycline approximately 3 weeks ago. Patient states that there was improvement but then worsening after. Patient believes there is an ingrowing nail at the root of this. Patient's A1c 3 weeks ago was 8.2 which is less than spent on the past several years. Patient is tolerating the 2 mg Amaryl without issue. Patient states initially its effects were more profound than recently. Patient also wishes to discuss insomnia. Patient reports waking up at about 3:00 in the morning and not being able to fall asleep until 5 in the morning. Patient states this happens more often than not. Review of Systems Constitutional: See HPI Integumentary: See HPI Neurologic: Alert and oriented X4, No numbness, No tingling. All other systems are negative Objective BP 138/76 Pulse 67 Ht 1.727 m (5' 8 ) Wt 128 kg (283 lb) SpO2 96% BMI 43.03 kg/m Physical Exam General: Alert and oriented, No acute distress. Eye: Pupils are equal, round and reactive to light, Normal conjunctiva. HENT: Normocephalic, Neck: Supple Respiratory: Respirations are non-labored Musculoskeletal: Normal ROM and strength Integumentary: Right index finger with swelling, tenderness, and warmth on the distal aspect emanating from the lateral nail which appears to be ingrowing Neurologic: Alert, Oriented, Normal sensory, Cranial Nerves II-XII are grossly intact Psychiatric: Cooperative, Appropriate mood & affect. Nail Removal Date/Time: 01/17/2023 12:28 PM Performed by: Shruthi Lemus PA-C Authorized by: Shruthi Lemus PA-C Consent: Consent obtained: Verbal Consent given by: Patient Risks, benefits, and alternatives were discussed: yes Risks discussed: Bleeding and pain Platinum protocol: Procedure explained and questions answered to patient or proxy's satisfaction: yes Patient identity confirmed: Verbally with patient Location: Hand: R index finger Pre-procedure details: Skin preparation: Chlorhexidine Anesthesia: Anesthesia method: None Nail Removal: Nail removed: Partial Nail side: Lateral Ingrown nail: Nail matrix removed or ablated: Partial Post-procedure details: Dressing: Antibiotic ointment Procedure completion: Tolerated well, no immediate complications Assessment/Plan Ingrowing infected fingernail: Good results with procedure. 1 more week of doxycycline Diabetes type 2: Increase Amaryl to 4 mg. Follow-up A1c for 3 months. Follow-up in general for 6 months Insomnia: Start trazodone 50 mg one half or 1 tab nightly as needed Problem List Items Addressed This Visit Diabetes mellitus ([facility]) Relevant Medications glimepiride (Amaryl) 4 mg tablet Other Relevant Orders Hemoglobin A1C Other insomnia Relevant Medications traZODone (Desyrel) 50 mg tablet Other Visit Diagnoses Paronychia of right index finger - Primary Relevant Medications doxycycline (Adoxa) 100 mg tablet glimepiride (Amaryl) 4 mg tablet Ingrown fingernail Relevant Medications doxycycline (Adoxa) 100 mg tablet glimepiride (Amaryl) 4 mg tablet Final diagnoses: [L03.011] Paronychia of right index finger [L60.0] Ingrown fingernail [E11.9, Z79.4] Type 2 diabetes mellitus without complication, with long-term current use of insulin ([facility]) [G47.09] Other insomnia documented in this encounter [facility] Work Phone: 08-04-2021 Note HNO ID: [id number] Author: Gabriel Ashby MD Service: ? Author Type: Physician Type: Progress Notes Filed: 08/04/2021 11:21 AM Note Text: This is a 60 year old male Insulin dependent diabetes mellitus x 30 y last A1C 9.0% diagnosed upon referral with diabetic macular edema both eyes, referred by Dr. Paniagua. Visual acuity without correction is 20/25 RE and 20/50 LE. IOP is 14/13. Anterior segment exam is significant for PCIOL RE and 2+ NSC LE . Dilated fundus examination demonstrates diabetic macular edema with hemorrhages, CWS. OCT with improved yet persistent IRF Both eyes with improvement in Visual acuity Left eye. I recommend Eyelea both eyes and follow up 4 weeks with refraction. I have confirmed and edited as necessary the relevant ophthalmic history, ROS, and the neuro exam findings as obtained by others. I have seen and examined this patient. I have discussed the case and the management of this patient's care with the Resident/Fellow, if applicable. I also have reviewed and agree with the assessment and plan as stated above and agree with all of its relevant components. [facility] 07-08-2021 Note HNO ID: [id number] Author: Marc Hitchcock MD Service: ? Author Type: Physician Type: Progress Notes Filed: 07/09/2021 10:42 AM Note Text: Chief Complaint Patient presents with: Hospital Follow Up HPI Oly Smith is a 60 year old male who presents here today for Hospital follow up. Here with his . Pt was admitted to [facility] on 06/15/21 for edema/CHF. Has lost 30-50 pounds with diuresis. EF 20%. Checking BP at home. No chest pains, dizziness, or SOB. Swelling in legs have been doing well. No SOB when laying down. He states he is feeling much better now, energy is better. He is weighing himself daily. Follows with Cardio, Dr. Wallace but yesterday he saw Rupal Briones. He states his BP was low in the 64/44, he didn't not feel fatigued, lightheaded or dizzy but stated he did have to walk a long ways to get to the appointment. He is checking it at home once daily with readings 94/77 this AM. Lasix 40 mg reduced to once daily dosage yesterday by Rupal Briones with [facility]. Rupal Briones told him that he was slightly dehydrated. states he isn't drinking as much as he should but he thinks he is drinking a lot, states he is always thirsty. He is urinating ok. Pt stated he never started the Lipitor, states I refuse to take it as a blas of mine from that . Pt actually asking to get off some of the medications he is currently taking, I don't like putting medications into my body . Pt does not eat salt. Checking BS 2 x per day in AM and PM. FBS BS have been running between 200-300. Evening readings running 200-300. Denies any issues with BS going too low. He keeps increasing his insulin. He uses Novolog sliding scale of 25-60 units TID depending on BS readings, Tresiba 80 units BID and Ozempic 0.5 mg once a week. Recent discharge note: Chief Complaint: Edema Narrative Narrative: 60-year-old male presenting with. He relates a history of weight gain from 2 78-3 04 over a couple of months. He initially saw Dr. Severino. He followed up with Daphnie Bhatti. He was told he had abnormal LFTs. There was concern for possible CHF as well. Patient was placed on triamterene and lost 10 pounds. He complains of orthopnea but he feels as if it is abdomen which is making him short of breath. He does have shortness of breath with exertion but he still able to get around. He is not having any chest pain. He has not had a fever but he does have a slight cough. On his last visit to see Daphnie Bhatti she performed a chest x-ray two-view which showed a left lower lobe infiltrate and probable effusion. He was placed on Levaquin. He has not had a fever, chills, body aches, loss of taste or smell. He is not vaccinated for COVID-19. Patient denies a history of liver disease. He states that he is diabetic and has no heart issues that he knows of. On his last visit he had lab work drawn which resulted today and he had a BNP of 2384. He came to the ED at the request of his primary care. ? Summary of Care Provided Minutes Spent on Discharge: 35 Hospital Course: Disposition: Patient to be discharged home. ? 1) Acute on chronic heart failure with reduced ejection fraction/cardiomyopathy Cardiac catheterization obtained on 06/18 demonstrated elevated left ventricular end-diastolic pressure, global left ventricular systolic dysfunction, an EF of 20% with kletsel dehe wintun multivessel coronary artery disease. Updated echocardiogram obtained on 06/16/21 demonstrated severely dilated left ventricle, severe segmental systolic dysfunction, an estimated EF of 20%, moderately dilated right ventricle, moderate right ventricular systolic dysfunction, an RVSP of 27 mmHg and evidence of diastolic dysfunction. Cardiology is following and recommends continued medical management. Plan; discharge home, follow-up with primary care provider and cardiology within the next 2 weeks, initiate aspirin, statin, Coreg, Lasix, Entresto and spironolactone. Discontinue triamterene. ? 2) Type 2 diabetes mellitus with peripheral neuropathy Hemoglobin A1c obtained on 06/16 was 7.8%. Continue home diabetic regimen. ? 3) PAD Previous arterial studies March 2020 with evidence of arterial calcifications at ankle level bilaterally. Moderate impairment of arterial flow at the digital level on the right. ? 4) Morbid obesity Encouraged diet and lifestyle modifications. Past medical history, appointments, medications, allergies reviewed. Previous Medical History PAST MEDICAL HISTORY Diagnosis Date - Diabetes mellitus without mention of complication - Hemorrhage of gastrointestinal tract, unspecified - Hypopotassemia - Hyposmolality and/or hyponatremia - Morbid obesity (HCC) - Tachycardia, unspecified - Type 2 diabetes mellitus with both eyes affected by moderate nonproliferative retinopathy and macular edema, with long-term current use of insulin (HCC) Previous Surgical Histo (more content not included)... [facility] 06-30-2021 Note HNO ID: [id number] Author: Gabriel Ashby MD Service: ? Author Type: Physician Type: Progress Notes Filed: 06/30/2021 12:34 PM Note Text: This is a 60 year old male Insulin dependent diabetes mellitus x 30 y last A1C 9.0% diagnosed upon referral with diabetic macular edema both eyes, referred by Dr. Paniagua. Visual acuity without correction is 20/25 RE and 20/50 LE. IOP is 14/13. Anterior segment exam is significant for PCIOL RE and 2+ NSC LE . Dilated fundus examination demonstrates diabetic macular edema with hemorrhages, CWS. OCT with improved yet persistent IRF Both eyes with improvement in Visual acuity Left eye. I recommend Eyelea both eyes and follow up 4 weeks. I have confirmed and edited as necessary the relevant ophthalmic history, ROS, and the neuro exam findings as obtained by others. I have seen and examined this patient. I have discussed the case and the management of this patient's care with the Resident/Fellow, if applicable. I also have reviewed and agree with the assessment and plan as stated above and agree with all of its relevant components. 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 Has been checking BP at home, 107/93, 94/69. He denies any chest pains, no SOB, no dizziness. No SOB with laying down. Swelling in the leg is good, he states he can see his ankles, lost 44.5 lbs in 14 days while admitted. Pt scheduled to follow up with [facility] [employer] Dr. Wallace on 07/07/21. Initial contact with patient post discharge, spoke to patient on 06/22/21. Patient identified by name and . TRANSITION CARE MANAGEMENT INITIAL OUTREACH DOCUMENTATION: Date of Outreach: 06/22/2021 Outreach Attempt 1: Contact Made Date of Discharge 06/19/2021 Some recent data might be hidden SUMMARY: -Pt discharged from [facility] on 06/19/21. -Admitted for: 1-Heart Failure 2-Cardiomyopathy 3-PVD 4-DM II, uncontrolled Do you have a hospital follow up appointment with your PCP? Appointment on 07/08/21 with ME. Yes. Remind patient of appointment date, time, and location. If not within 14 calendar days of discharge - please reschedule accordingly. Below Copied from [facility] [place]: Chief Complaint: Edema Narrative Narrative: 60-year-old male presenting with. He relates a history of weight gain from 2 78-3 04 over a couple of months. He initially saw Dr. Severino. He followed up with Daphnie Bhatti. He was told he had abnormal LFTs. There was concern for possible CHF as well. Patient was placed on triamterene and lost 10 pounds. He complains of orthopnea but he feels as if it is abdomen which is making him short of breath. He does have shortness of breath with exertion but he still able to get around. He is not having any chest pain. He has not had a fever but he does have a slight cough. On his last visit to see Daphnie Bhatti she performed a chest x-ray two-view which showed a left lower lobe infiltrate and probable effusion. He was placed on Levaquin. He has not had a fever, chills, body aches, loss of taste or smell. He is not vaccinated for COVID-19. Patient denies a history of liver disease. He states that he is diabetic and has no heart issues that he knows of. On his last visit he had lab work drawn which resulted today and he had a BNP of 2384. He came to the ED at the request of his primary care. Summary of Care Provided Minutes Spent on Discharge: 35 Hospital Course: Disposition: Patient to be discharged home. 1) Acute on chronic heart failure with reduced ejection fraction/cardiomyopathy Cardiac catheterization obtained on 06/18 demonstrated elevated left ventricular end-diastolic pressure, global left ventricular systolic dysfunction, an EF of 20% with kletsel dehe wintun multivessel coronary artery disease. Updated echocardiogram obtained on 06/16/21 demonstrated severely dilated left ventricle, severe segmental systolic dysfunction, an estimated EF of 20%, moderately dilated right ventricle, moderate right ventricular systolic dysfunction, an RVSP of 27 mmHg and evidence of diastolic dysfunction. Cardiology is following and recommends continued medical management. Plan; discharge home, follow-up with primary care provider and cardiology within the next 2 weeks, initiate aspirin, statin, Coreg, Lasix, Entresto and spironolactone. Discontinue triamterene. 2) Type 2 diabetes mellitus with peripheral neuropathy Hemoglobin A1c obtained on 06/16 was 7.8%. Continue home diabetic regimen. 3) PAD Previous arterial studies March 2020 with evidence of arterial calcifications at ankle level bilaterally. Moderate impairment of arterial flow at the digital level on the right. 4) Morbid obesity Encouraged diet and lifestyle modifications. Patient seen by Pavel Valenzuela PA-C, under the supervision of Dr. Alexander. MEDICATIONS: Many patients have questions or concerns about their medications once they are home. Were you prescribed any new medications? If yes, what are those medications? Aspirin 81 mg daily Coreg 3.125 mg BID Entresto 24-26 mg BID Lipitor 20 mg daily Lasix 40 mg BID Spironolactone 25 mg daily Were you told to hold any medications? No Were any of your medications discontinued? If yes, what are those medications? Triamterene 100 mg Do you have any questions about getting or taking your medications? No Your discharge instructions/After visit Summary (AVS) are important in guiding you through the recovery process. Is there anything I might help you understand? No Do you have all the necessary equipment and sup (more content not included)... [facility] 06-22-2021 Note HNO ID: [id number] Author: Tabatha Gonzalez Ma Service: ? Author Type: ? Type: Progress Notes Filed: 06/22/2021 10:48 AM Note Text: TRANSITION CARE MANAGEMENT (TCM) INITIAL CONTACT [employer] Supervisor Outreach Provider Action/FYI: Pt was transferred to air twister winder to set up appt as [facility] was not able to schedule due to pt insurance. Has been checking BP at home, 107/93, 94/69. He denies any chest pains, no SOB, no dizziness. No SOB with laying down. Swelling in the leg is good, he states he can see his ankles, lost 44.5 lbs in 14 days while admitted. Pt scheduled to follow up with [facility] [employer] Dr. Wallace on 07/07/21. Initial contact with patient post discharge, spoke to patient on 06/22/21. Patient identified by name and . TRANSITION CARE MANAGEMENT INITIAL OUTREACH DOCUMENTATION: Date of Outreach: 06/22/2021 Outreach Attempt 1: Contact Made Date of Discharge 06/19/2021 Some recent data might be hidden SUMMARY: -Pt discharged from [facility] on 06/19/21. -Admitted for: 1-Heart Failure 2-Cardiomyopathy 3-PVD 4-DM II, uncontrolled Do you have a hospital follow up appointment with your PCP? Appointment on 07/08/21 with ME. Yes. Remind patient of appointment date, time, and location. If not within 14 calendar days of discharge - please reschedule accordingly. Below Copied from [facility] [place]: Chief Complaint: Edema Narrative Narrative: 60-year-old male presenting with. He relates a history of weight gain from 2 78-3 04 over a couple of months. He initially saw Dr. Severino. He followed up with Daphnie Bhatti. He was told he had abnormal LFTs. There was concern for possible CHF as well. Patient was placed on triamterene and lost 10 pounds. He complains of orthopnea but he feels as if it is abdomen which is making him short of breath. He does have shortness of breath with exertion but he still able to get around. He is not having any chest pain. He has not had a fever but he does have a slight cough. On his last visit to see Daphnie Bhatti she performed a chest x-ray two-view which showed a left lower lobe infiltrate and probable effusion. He was placed on Levaquin. He has not had a fever, chills, body aches, loss of taste or smell. He is not vaccinated for COVID-19. Patient denies a history of liver disease. He states that he is diabetic and has no heart issues that he knows of. On his last visit he had lab work drawn which resulted today and he had a BNP of 2384. He came to the ED at the request of his primary care. Summary of Care Provided Minutes Spent on Discharge: 35 Hospital Course: Disposition: Patient to be discharged home. 1) Acute on chronic heart failure with reduced ejection fraction/cardiomyopathy Cardiac catheterization obtained on 06/18 demonstrated elevated left ventricular end-diastolic pressure, global left ventricular systolic dysfunction, an EF of 20% with kletsel dehe wintun multivessel coronary artery disease. Updated echocardiogram obtained on 06/16/21 demonstrated severely dilated left ventricle, severe segmental systolic dysfunction, an estimated EF of 20%, moderately dilated right ventricle, moderate right ventricular systolic dysfunction, an RVSP of 27 mmHg and evidence of diastolic dysfunction. Cardiology is following and recommends continued medical management. Plan; discharge home, follow-up with primary care provider and cardiology within the next 2 weeks, initiate aspirin, statin, Coreg, Lasix, Entresto and spironolactone. Discontinue triamterene. 2) Type 2 diabetes mellitus with peripheral neuropathy Hemoglobin A1c obtained on 06/16 was 7.8%. Continue home diabetic regimen. 3) PAD Previous arterial studies March 2020 with evidence of arterial calcifications at ankle level bilaterally. Moderate impairment of arterial flow at the digital level on the right. 4) Morbid obesity Encouraged diet and lifestyle modifications. Patient seen by Pavel Valenzuela PA-C, under the supervision of Dr. Alexander. MEDICATIONS: Many patients have questions or concerns about their medications once they are home. Were you prescribed any new medications? If yes, what are those medications? Aspirin 81 mg daily Coreg 3.125 mg BID Entresto 24-26 mg BID Lipitor 20 mg daily Lasix 40 mg BID Spironolactone 25 mg daily Were you told to hold any medications? No Were any of your medications discontinued? If yes, what are those medications? Triamterene 100 mg Do you have any questions about getting or taking your medications? No Your discharge instructions/After visit Summary (AVS) are important in guiding you through the recovery process. Is there anything I might help you understand? No Do you have all the necessary equipment and supplies at home? Yes Medical records from recent hospitalization: Placed for provider to review [facility] 06-08-2021 Note HNO ID: [id number] Author: RT Janet(R) Service: Neurosurgery Author Type: Technologist Type: Progress Notes Filed: 06/08/2021 4:54 PM Note Text: Radiology Service Progress Note PATIENT NAME: Oly Smith DATE OF SERVICE: June 08, 2021 TIME: 4:46 PM PATIENT IDENTITY VERIFICATION COMPLETED USING TWO (2) IDENTIFIERS: Name and Date of confirmed by patient verbally. FALL SCREENING: Has the patient had 2 falls in the last year or 1 fall with injury or currently using an Ambulatory Assistive Device (Walker, Cane, Wheelchair, Crutches, etc.)? No PATIENT GENDER DATA: Male PATIENT RELEVANT IMPLANT DATA REVIEWED: Yes RADIOLOGY DEPARTMENT: General X-ray: Exam(s) Completed: Chest X-Ray PERIPHERAL IV DATA: Not applicable SIGNED BY: RT Janet(R) June 08, 2021 4:46 PM [facility] 06-08-2021 Note HNO ID: [id number] Author: Leigh Bhatti APRN.CANOE INSPECTOR Service: ? Author Type: Nurse Practitioner Type: Progress Notes Filed: 06/17/2021 10:22 AM Note Text: Patient presents with: Breathing Problem: shortness of breath x 2 months Edema: bilateral legs, thighs, stomach Bladder Infection: darker color urine, no uti symptoms HPI: Oly Smith is a 60 year old male who presents to the office today for review of health conditions. He is an established patient of Dr. Hitchcock and new to me today. Concerns today: Thinks he he has CHF or a valve problem. These concerns started about 2 months ago. Both legs are very swollen. Has a dry cough. Is SOB. Abdomen is very large-now very close to the steering wheel. Just walking makes him winded. If he lays flat, can't breathe well at all. Sleeping on his side. Elevates his feet as much as possible. Works 4-5 hours a day but then is completely exhausted. Last 3 Encounter BP Readings: Date: BP: 01/28/2021 118/78 11/28/2020 138/82 07/11/2019 136/84 PAST MEDICAL HISTORY Diagnosis Date - Diabetes mellitus without mention of complication - Hemorrhage of gastrointestinal tract, unspecified - Hypopotassemia - Hyposmolality and/or hyponatremia - Morbid obesity (HCC) - Tachycardia, unspecified - Type 2 diabetes mellitus with both eyes affected by moderate nonproliferative retinopathy and macular edema, with long-term current use of insulin (HCC) PAST SURGICAL HISTORY Procedure Laterality Date - AVASTIN (BEVACIZUMAB) 1.25MG INTRAVITREAL INJECTION OD (RIGHT EYE) Right 03/31/2021 - AVASTIN (BEVACIZUMAB) 1.25MG INTRAVITREAL INJECTION OS (LEFT EYE) Left 03/31/2021 - PAST SURGICAL HISTORY OF Right 06/05/2018 Right rth met and debridement (07/04/18) - REMV GALLBLADDER W CHOLANGIOGRAM 10/23/05 Social History Tobacco Use - Smoking status: Former Smoker Types: Cigars - Smokeless tobacco: Former User Types: Snuff Quit date: 07/13/2005 - Tobacco comment: just smoked 1 month summer 2016 Vaping Use - Vaping Use: Never used Substance Use Topics - Alcohol use: Yes Comment: rarely - Drug use: No FAMILY HISTORY Problem Relation Age of Onset - Cancer Mother - Cataract Maternal Grandmother - Amblyopia Daughter - Glaucoma No Family History - Detached Retina No Family History - Macular Degen No Family History - Blindness No Family History Allergies: ALLERGIES No Known Allergies Current Meds: aflibercept (EYLEA INTRAVITREAL) by INTRAVITREAL route. insulin degludec (TRESIBA FLEXTOUCH U-200) 200 unit/mL (3 mL) injection Inject 80 Units subcutaneously twice daily. insulin aspart U-100 (NOVOLOG FLEXPEN U-100 INSULIN) 100 unit/mL (3 mL) Sliding scale from 25 units - 60 units three times daily, depending on glucose readings. Insulin [place], Disposable, (BD ULTRA-FINE ARLYN PEN NEEDLE) 32 gauge x 5/32 Use one needle for each dose. 3/day. Lancets (MICROLET LANCET) lancets Test blood sugar(s) two times daily. Dx: 250.02. Insulin: Yes semaglutide (OZEMPIC) 0.25 mg or 0.5 mg(2 mg/1.5 mL) pnij Inject 0.5 mg subcutaneously one time a week. Review of Systems All other systems reviewed and are negative. See HPI PE: 06/08/21 1511 BP: 122/62 BP Site: Right Arm BP Position: Sitting BP Cuff Size: Large Adult Pulse: 82 Resp: 18 SpO2: 97% Weight: (!) 137.9 kg (304 lb) Physical Exam Vitals and nursing note reviewed. Exam conducted with a retort furnace operator present (). Constitutional: Appearance: He is obese. He is ill-appearing. HENT: Head: Normocephalic and atraumatic. Cardiovascular: Rate and Rhythm: Normal rate and regular rhythm. Pulses: Normal pulses. Heart sounds: Normal heart sounds. Pulmonary: Effort: Pulmonary effort is normal. Breath sounds: Normal breath sounds. Abdominal: Comments: Abdomen large, round, firm Musculoskeletal: Right lower le+ Pitting Edema present. Left lower le+ Pitting Edema present. Skin: General: Skin is warm and dry. Capillary Refill: Capillary refill takes 2 to 3 seconds. Neurological: Mental Status: He is alert. Psychiatric: Mood and Affect: Mood normal. Behavior: Behavior normal. ASSESSMENT/PLAN: 1. Generalized edema - ICD9: 782.3, ICD10: R60.1 (primary diagnosis) Edema to bilateral legs and feet, abdomen, hands. Recommend patient go to the hospital for diuresis, but he refuses at this time. Obtain labs, chest xray. Concern for CHF vs renal failure. Begin tramterene bid. He will call with update in 2 days. - XR CHEST 2V FRONTAL/LAT - NT PRO BNP - TRIAMTERENE 100 MG CAPSULE - CONSULT TO CARDIOLOGY 2. SOB (shortness of breath) - ICD9: 786.05, ICD10: R06.02 Edema to bilateral legs and feet, abdomen, hands. Recommend patient go to the hospital for diuresis, but he refuses at this time. Obtain labs, chest xray. Concern for CHF vs renal failure. Begin tramterene bid. He will call with update in 2 days. (more content not included)... [facility] 05-26-2021 Note HNO ID: [id number] Author: Gabriel Ashby MD Service: ? Author Type: Physician Type: Progress Notes Filed: 05/26/2021 11:55 AM Note Text: This is a 60 year old male Insulin dependent diabetes mellitus x 30 y last A1C 9.0% diagnosed upon referral with diabetic macular edema both eyes, referred by Dr. Paniagua. Visual acuity without correction is 20/25 RE and 20/50 LE. IOP is 14/13. Anterior segment exam is significant for PCIOL RE and 2+ NSC LE . Dilated fundus examination demonstrates diabetic macular edema with hemorrhages, CWS. OCT with improved yet persistent IRF Both eyes with improvement in Visual acuity Left eye. I recommend Eyelea both eyes and follow up 4 weeks. I have confirmed and edited as necessary the relevant ophthalmic history, ROS, and the neuro exam findings as obtained by others. I have seen and examined this patient. I have discussed the case and the management of this patient's care with the Resident/Fellow, if applicable. I also have reviewed and agree with the assessment and plan as stated above and agree with all of its relevant components. [facility] 05-08-2021 Miscellaneous Notes Prior Authorization has been completed online at [employer] for [employer], will await response. [employer]- [id number]) Please keep encounter open until final decision has been received and documented from insurance company. Patricia Singh LPN documented in this encounter [facility] 04-28-2021 Note HNO ID: [id number] Author: Gabriel Ashby MD Service: ? Author Type: Physician Type: Progress Notes Filed: 04/28/2021 11:51 AM Note Text: This is a 60 year old male Insulin dependent diabetes mellitus x 30 y last A1C 9.0% diagnosed upon referral with diabetic macular edema both eyes, referred by Dr. Paniagua. Visual acuity without correction is 20/25 RE and 20/70 LE. IOP is 18/20. Anterior segment exam is significant for PCIOL RE and 2+ NSC LE . Dilated fundus examination demonstrates diabetic macular edema with hemorrhages . I recommend Eyelea both eyes and follow up 4 weeks, with precert for Eyelea. Although vision is improved the edema is stalled with avastin. I have confirmed and edited as necessary the relevant ophthalmic history, ROS, and the neuro exam findings as obtained by others. I have seen and examined this patient. I have discussed the case and the management of this patient's care with the Resident/Fellow, if applicable. I also have reviewed and agree with the assessment and plan as stated above and agree with all of its relevant components. [facility] 03-31-2021 Note HNO ID: [id number] Author: Gabriel Ashby MD Service: ? Author Type: Physician Type: Progress Notes Filed: 03/31/2021 10:52 AM Note Text: This is a 60 year old male Insulin dependent diabetes mellitus x 30 y last A1C 9.0% diagnosed upon referral with diabetic macular edema both eyes, referred by Dr. Paniagua. Visual acuity without correction is 20/25 RE and 20/70 LE. IOP is 16/16. Anterior segment exam is significant for PCIOL RE and 2+ NSC LE . Dilated fundus examination demonstrates diabetic macular edema with hemorrhages . I recommend Avastin both eyes and follow up 4 weeks, with precert for Eyelea. Although vision is improved the edema is stained with avastin. I have confirmed and edited as necessary the relevant ophthalmic history, ROS, and the neuro exam findings as obtained by others. I have seen and examined this patient. I have discussed the case and the management of this patient's care with the Resident/Fellow, if applicable. I also have reviewed and agree with the assessment and plan as stated above and agree with all of its relevant components. Gabriel Ashyb MD March 31, 2021 [facility] 03-03-2021 Note HNO ID: [id number] Author: Gabriel Ashby MD Service: ? Author Type: Physician Type: Progress Notes Filed: 03/03/2021 9:22 AM Note Text: This is a 60 year old male Insulin dependent diabetes mellitus x 30 y last A1C 9.0% diagnosed upon referral with diabetic macular edema both eyes, referred by Dr. Paniagua. Visual acuity without correction is 20/25 RE and 20/150 LE. IOP is 17/16. Anterior segment exam is significant for PCIOL RE and 2+ NSC LE . Dilated fundus examination demonstrates diabetic macular edema with hemorrhages . I recommend Avastin both eyes and follow up 4 weeks. His OCTs appear slightly improved in the left eye and he noticed an improvement for a few weeks after the injection. His vision is also improved in the right eye. I have confirmed and edited as necessary the relevant ophthalmic history, ROS, and the neuro exam findings as obtained by others. I have seen and examined this patient. I have discussed the case and the management of this patient's care with the Resident/Fellow, if applicable. I also have reviewed and agree with the assessment and plan as stated above and agree with all of its relevant components. Gabriel Ashby MD March 03, 2021 [facility] 01-29-2021 Note HNO ID: [id number] Author: Gabriel Ashby MD Service: ? Author Type: Physician Type: Progress Notes Filed: 01/29/2021 11:40 AM Note Text: This is a 60 year old male Insulin dependent diabetes mellitus x 30 y last A1C 9.0% diagnosed upon referral with diabetic macular edema both eyes, referred by Dr. Paniagua. Visual acuity without correction is 20/40 RE and 20/125 LE. IOP is 15/14. Anterior segment exam is significant for PCIOL RE and 2+ NSC LE . Dilated fundus examination demonstrates diabetic macular edema with hemorrhages . I recommend Avastin both eyes and follow up 4 weeks. I have confirmed and edited as necessary the relevant ophthalmic history, ROS, and the neuro exam findings as obtained by others. I have seen and examined this patient. I have discussed the case and the management of this patient's care with the Resident/Fellow, if applicable. I also have reviewed and agree with the assessment and plan as stated above and agree with all of its relevant components. Gabriel Ashby MD January 29, 2021 11:29 AM [facility] 01-28-2021 Note HNO ID: [id number] Author: Marc Hitchcock MD Service: ? Author Type: Physician Type: Progress Notes Filed: 01/28/2021 7:05 PM Note Text: Chief Complaint Patient presents with: Recheck: DM HPI Oly Smith is a 60 year old male who presents here today for 2 month follow up. No bowel, Gi, or urinary concerns. DM: Checking BS TID, running 80-120. Was started at previous OV Ozempic 0.25 mg weekly, but admits that he's been doing 0.5 mg weekly, Novolog 25-60 units TID depending on sugars, and Tresiba 80 units twice a day. No hypoglycemic episodes. 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 Follows with Pumping Plant Operator Dr. Abarca, has had issues with dm ulcers to the feet and toes. Has followed with Pharmacist, Kathy Sandoval in past but has no showed most recent visits. Eye doctor is Martin Paniagua. A1c on 01/26 was down to 9.0. His average sugars at home running low 100s. No hypoglycemia. Follows with Dr. Ashby Retinologist tomorrow at [facility]. HM - Declines depression symptoms. See Podiatry around 10/28 he believes. Past medical history, appointments, medications, allergies reviewed. Previous Medical History PAST MEDICAL HISTORY Diagnosis Date - Diabetes mellitus without mention of complication - Hemorrhage of gastrointestinal tract, unspecified - Hypopotassemia - Hyposmolality and/or hyponatremia - Morbid obesity (HCC) - Tachycardia, unspecified Previous Surgical History PAST SURGICAL HISTORY Procedure Laterality Date - PAST SURGICAL HISTORY OF Right 06/05/2018 Right rth met and debridement (07/04/18) - REMV GALLBLADDER W CHOLANGIOGRAM 10/23/05 Family History FAMILY HISTORY Problem Relation Age of Onset - Cancer Mother Patient Allergies ALLERGIES Allergen Reactions - Penicillins Other: See Comments Pt states that he took medication this year and had no SE Current Medications Current Outpatient Medications on File Prior to Visit Medication Sig - semaglutide (OZEMPIC) 0.25 mg or 0.5 mg(2 mg/1.5 mL) pnij Inject 0.25 mg subcutaneously one time a week. - insulin aspart U-100 (NOVOLOG FLEXPEN U-100 INSULIN) 100 unit/mL (3 mL) Sliding scale from 25 units - 60 units three times daily, depending on glucose readings. - insulin degludec (TRESIBA FLEXTOUCH U-200) 200 unit/mL (3 mL) injection Inject 80 Units subcutaneously twice daily. - Insulin [place], Disposable, (BD ULTRA-FINE ARLYN PEN NEEDLE) 32 gauge x 5/32 Use one needle for each dose. 3/day. - Lancets (MICROLET LANCET) lancets Test blood sugar(s) two times daily. Dx: 250.02. Insulin: Yes No current facility-administered medications on file prior to visit. Social History Social History Tobacco Use - Smoking status: Former Smoker Types: Cigars - Smokeless tobacco: Former User Types: Snuff Quit date: 07/13/2005 - Tobacco comment: just smoked 1 month summer 2016 Substance Use Topics - Alcohol use: No - Drug use: No EXAM: BP 118/78 (BP Site: Left Arm, BP Position: Sitting, BP Cuff Size: Large Adult) Pulse 84 Resp 16 Wt 125.6 kg (277 lb) General Appearance: Well appearing, alert, in no acute distress, well-hydrated, well nourished. and Obese. Lungs: Lungs clear to auscultation. No wheezing, rhonchi, rales.. Heart: RRR without murmur, gallop, or rubs. No ectopy. Health Maintenance List ONE PNEUMOVAX PRIOR TO AGE 65 Never done DTAP,TDAP,TD(1 - Tdap) Never done SHINGRIX VACCINE(1 of 2) Never done PROSTATE CANCER SCREENING DISCUSSION Never done DIABETIC FOOT EXAM due on 04/12/2019 DEPRESSION SCREENING due on 07/11/2020 HEPATITIS C SCREENING due on 11/28/2021 HIV SCREENING due on 11/28/2021 HBA1C due on 02/25/2021 INFLUENZA(Season Ended) due on 05/20/2021 URINE ALBUMIN:CREATININE RATIO due on 11/25/2021 LDL CHOLESTEROL due on 11/25/2021 ANNUAL PCP TEAM CHRONIC DISEASE VISIT due on 11/28/2021 DILATED RETINAL EXAM due on 12/15/2021 COLORECTAL CANCER SCREENING due on 09/09/2023 MENINGOCOCCAL CONJUGATE Aged Out Data reviewed External A1c completed at on 01/26/21 A1c 9.0 ASSESSMENT/PLAN: 1. Type 2 diabetes mellitus with complication (HCC) - ICD9: 250.90, ICD10: E11.8 improved control - Continue current medications - OZEMPIC 0.25 MG OR 0.5 MG (2 MG/1.5 ML) SUBCUTANEOUS PEN INJECTOR - HGB A1C - COMP METABOLIC PANEL - LIPID PANEL BASIC Follow up in 3 months with labs prior I agree with the Chief Complaint, ROS, and Past Histories independently gathered by the clinical child support officer and the remaining scribed note accurately describes my personal service to the patient. Medical Decision Making: Problems: Low: Stable chronic illness Data: Unique test result(s) reviewed: 1 Unique test(s) ordered: 1 Risk: Moderate: Drug management Medical Decision Making Level: 3 - Low Marc Hitchcock MD The documentation for this note was completed by Zayra Briceno MA acting as scribe for Marc Hitchcock MD. January 28, 2021 5:49 PM. Zayra Briceno MA [facility] documented as of this encounter (statuses as of 01/19/2022) [facility] History of Past illness Narrative* Problem Noted Date Diagnosed Date Resolved Date Other acquired deformity of toe 04/10/2009 03/04/2010 CHOLECYSTITIS SEE ALSO GALLBLADDER ACUTE 11/04/2005 03/04/2010 documented as of this encounter (statuses as of 08/03/2023) [facility] History of Past illness Narrative* Problem Noted Date Diagnosed Date Resolved Date Other acquired deformity of toe 04/10/2009 03/04/2010 CHOLECYSTITIS SEE ALSO GALLBLADDER ACUTE 11/04/2005 03/04/2010 documented as of this encounter (statuses as of 08/04/2023) [facility] Paronychia of right index finger- Primary Ingrown fingernail Type 2 diabetes mellitus without complication, with long-term current use of insulin ([facility]) Other insomnia documented in this encounter [facility] Work Phone: Evaluation note* Diagnosis Type 2 diabetes mellitus without complication, with long-term current use of insulin ([facility])- Primary Primary hypertension Unspecified essential hypertension Chronic congestive heart failure, unspecified heart failure type (CMS/HCC) Umbilical hernia without obstruction and without gangrene Encounter for screening for malignant neoplasm of prostate documented in this encounter [facility] Work Phone: History of Present illness Narrative* [facility]. * Patient has medical history of heart failure, type 2 diabetes, hypertension, and intermittent ascites. Patient currently takes carvedilol, Entresto, furosemide, NovoLog, spironolactone, and Tresiba and management of these. Patient does follow with cardiology for heart failure, ascites, and hypertens ion. * Patient reports and admits to medical noncompliance as well as poor dietary habits at least for thepast year. Patient suspects that average glucose is between 300 and 600 but is intermittently lowerthan that. Patient has also arbitrarily modified, reduced, or entirely stopped other medicines. Patient was prescribed 25 mg of carvedilol recently, and reduced it to prior dose of 6.25 twice daily. Patient reduced frequency of Entresto. But patient has been somewhat compliant with diabetes medications. Patient reports suspected fluid retention. There is associated fatigue. No chest pain or shortness of breath reported. Patient does admit to chronic slow healing wounds. * Patient reports onset of bilateral foot neuropathy over the past year or so. Patient states that the feet always feel numb which is worse in the summer. Largely, this is not cause issue but can causesome complications going up and down stairs when its at its worst. * Patient also reports longstanding history of umbilical hernia. Patient states this is incisional status post cholecystectomy. Hernia has continued to grow in size and is approximately the size of a tennis ball at this point. Patient denies any pain or change in bowel habits as a result of this. [facility] Work Phone: History of Present illness NarrativePresnets for evaluation fever, sore throat, nausea, vomiting, body aches, and MAY. Symptoms presented 1-2 days interventional physician and have been refractory to otc meds. Throat pain is exacerbated by oral intake. No abdominal pain, diaphoresis, or other constitutional S/S. No other attempt at conservative managemnet. Patient's is diagnosed and hospitalized with influenza A currently. No other complaints. [facility] Work Phone: Reason for referral (narrative)* Consultation (Routine) - Authorized Specialty Diagnoses / Procedures Referred By Contac t Referred To Contact Primary Care Procedures Follow Up In Primary Care Shruthi Lemsu PA-C [address] [place] [address] [place] [address] Referral ID Status Reason Start Date Expiration Date V isits Requested Visits Authorized [id number] Authorized 01/17/2023 07/16/2023 1 1 [facility] Work Phone: Reason for referral (narrative)* Consultation (Routine) - Authorized Specialty Diagnoses / Procedures Referred By Contac t Referred To Contact Primary Care Procedures Follow Up In Primary Care [facility] Shruthi Lemus PA-C [address] [place] [address] [place] [address] Referral ID Status Reason Start Date Expiration Date V isits Requested Visits Authorized [id number] Authorized 07/21/2023 07/20/2024 1 1 [facility] Work Phone: Summary Purpose Family History No Family History Records FoundUnknown Family Member Name Dates Details Family history of malignant neoplasm of colon: Mother(V16.0, Z80.0) Status:Active Unknown Family Member Name Dates Details Family history of malignant neoplasm of colon: Mother(V16.0, Z80.0) Status:Active Unknown Family Member Name Dates Details Family history of malignant neoplasm of colon: Mother(V16.0, Z80.0) Status:Active Unknown Family Member Name Dates Details Family history of malignant neoplasm of colon: Mother(V16.0, Z80.0) Status:Active Unknown Family Member Name Dates Details Family history of malignant neoplasm of colon: Mother(V16.0, Z80.0) Status:Active Unknown Family Member Name Dates Details Family history of malignant neoplasm of colon: Mother(V16.0, Z80.0) Status:Active Unknown Family Member Name Dates Details Family history of malignant neoplasm of colon: Mother(V16.0, Z80.0) Status:Active Unknown Family Member Name Dates Details Family history of malignant neoplasm of colon: Mother(V16.0, Z80.0) Status:Active Advance Directives No Advanced Directives Records FoundNo Advanced Directives Records FoundNo Advanced Directives Records FoundNo Advanced Directives Records FoundNo Advanced Directives Records FoundNo Advanced Directives Records FoundNo Advanced Directives Records FoundNo Advanced Directives Records Found Chief Complaint * Patient here today to get established as a new patient and last seen by PC 6 months ago, switching d/t insurance plan. * Patient has an umbilical hernia x 12 years that has been getting larger and now noticing it is interfering when he leans against things or bumps into things. * Patient also feels he is retaining fluid x 1 month. * Coloscopy never done, prostate and PSA done 2020. Vomiting, no energy, maybe some slight fevers, cough off and on. Phlegm is clear. Additional Source Comments (unrecognized sect ion and content) No Status Records FoundNo Status Records FoundNo Status Records FoundNo Status Records FoundNo Status Records FoundNo Status Records FoundNo Status Records FoundNo Status Records Found INFORMATION SOURCE (unrecogn ized section and content) DATE CREATED AUTHOR AUTHOR'S ORGANIZ ATION 01/30/2021 [facility] DATE CREATED AUTHOR AUTHOR'S ORGANIZ ATION 01/21/2022 [facility] DATE CREATED AUTHOR AUTHOR'S ORGANIZ ATION 08/26/2022 [facility] DATE CREATED AUTHOR AUTHOR'S ORGANIZ ATION 12/23/2022 [facility] DATE CREATED AUTHOR AUTHOR'S ORGANIZ ATION 07/23/2023 [facility] DATE CREATED AUTHOR AUTHOR'S ORGANIZ ATION 08/31/2023 [facility] DATE CREATED AUTHOR AUTHOR'S ORGANIZ ATION 09/02/2023 [facility] nter Source Comments (unrecognize d section and content) In the event this informatio n is protected by the Federal Confidentiality of Alcohol and Drug Abuse Patient Records regulations: The Federal rules restrict any use of the information to criminally investigate or prosecute any alcohol or drug abuse patient.[facility] the event this information is protected by the Federal Confidentiality of Alcohol and Drug Abuse Patient Records regulations: The Federal rules restrict any use of the information to criminally investigate or prosecute any alcohol or drug abuse patient.[facility] the event this information is protected by the Federal Confidentiality of Alcohol and Drug Abuse Patient Records regulations: The Federal rules restrict any use of the information to criminally investigate or prosecute any alcohol or drug abuse patient.[facility] Reason for Visit (unrecogniz ed section and content) Reason Comments Follow-up [address] ates his finger is about 80% better. Reason Comments Follow-up FU 6 months, patient had cataract surgery on 06-28-2023 and doing well,Patient has appt with surgeon in [place] for his lower abdomen hernia. Specialty Diagnoses / Procedures Referred By Alessio real Referred To Contact Primary Care Procedures Follow Up In Primary Care Shruthi Lemus PA-C [address] [facility] [place] [address] Referral ID Status Reason Start Date Expiration Date Visits Re quested Visits Authorized [id number] Closed 01/17/2023 07/16/2023 1 1 Care Teams (unrecognized sec tion and content) Rn Documentation Relationship Specialty Start Date End Date Shruthi Lemus PA-C [address] [facility] [place] [address] PCP - General 07/14/22 Shruthi Lemus PA-C [address] [facility] [place] [address] PCP - Employee [employer] PCP 07/20/22 Rn Documentation Relationship Specialty Start Date End Date Shruthi Lemus PA-C [address] [facility] [place] [address] PCP - General 07/14/22 Rn Documentation Relationship Specialty Start Date End Date Shruthi Lemus PA-C [address] [facility] [place] [address] PCP - General Hematology/Oncology 08/02/23 Rn Documentation Relationship Specialty Start Date End Date Shruthi Lemus PA-C [address] [place] [address] PCP - General Hematology/Oncology 08/02/23 FOR RECORDS PERTAINING TO PATIENTS WHO ARE OR HAVE BEEN ENROLLED IN A CHEMICAL DEPENDENCY/SUBSTANCEABUSE PROGRAM, SOME INFORMATION MAY BE OMITTED. This clinical summary was aggregated from multiple sources. Caution should be exercised in using it in the provision of clinical care. This summary normalizes information from multiple sources, and as a consequence, information in this document may materially change the coding, format and clinical context of patient data. In addition, data may be omitted in some cases. CLINICAL DECISIONS SHOULD BE BASED ON THE PRIMARY CLINICAL RECORDS. [facility] Write.my [facility]. provides no warranty or guarantee of the accuracy or completeness of information in this document.
--- NOTE | 2023-10-30 19:40 | EDS_ITS ---
HPI History of Present Illness Chief Complaint: Lower Extremity Injury Informant: patient and spouse/S.O. Narrative Narrative: Patient presents with open area on the right foot. Patient just noted this today. But he does not think it could be there more than a few days. When prompted by his he states he might have been a little bit more tired the last few days but he states other than that he feels fine. No fevers chills nausea or vomiting. He is not lightheaded. He states he does not feel pain in the feet but he has pretty significant diabetic neuropathy. 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 There was evidently some surgery on this great toe at the time 2. Patient denies any knowledge of stepping on anything or any injury. [facility] Medical History (Updated 10/30/23 @ 21:[address] Joby Galeana MD) Atherosclerotic heart disease of [place] coronary artery without angina pectoris CAD (coronary artery disease) Cardiomyopathy Cellulitis of right foot Chronic ulcer of left foot with fat layer exposed Chronic ulcer of right foot with fat layer exposed Chronic ulcer of right foot with necrosis of bone Delayed wound healing Diabetes Foot osteomyelitis, right Gangrene Heart failure Morbid obesity Non-pressure chronic ulcer of right heel and midfoot with bone involvement without evidence of necrosis Obesity (BMI 30-39.9) Osteomyelitis PVD (peripheral vascular disease) Tobacco use Type 2 diabetes mellitus with diabetic polyneuropathy Ventral incisional hernia without obstruction or gangrene Home Medications insulin aspart U-100 100 unit/mL (3 mL) subcutaneous pen 25 unit subcut .COMPLEX 07/07/21 [History Last Taken Unknown] insulin degludec 100 unit/mL subcutaneous solution 75 unit subcut BID Check with primary doctor 12/24/21 [History Last Taken Unknown] metformin 500 mg tablet 500 mg PO BID 07/22/22 [History Last Taken Unknown] furosemide 40 mg tablet (Lasix) 40 mg PO DAILY #30 tabs 08/31/22 [Rx Last Taken Unknown] spironolactone 25 mg tablet 25 mg PO DAILY #30 tabs 08/31/22 [Rx Last Taken Unknown] carvedilol 3.125 mg tablet 3.125 mg PO BID #1 TAB 01/03/23 [Rx Last Taken Unknown] empagliflozin 25 mg tablet (Jardiance) 25 mg PO DAILY 01/03/23 [History Last Taken Unknown] glimepiride 2 mg tablet 2 mg PO DAILY 01/03/23 [History Last Taken Unknown] sacubitril 49 mg-valsartan 51 mg tablet (Entresto) 1 tab PO BID #180 tabs 04/12/23 [Rx Last Taken Unknown] ciprofloxacin HCl 500 mg tablet 500 mg PO BID #14 TABLETS 10/30/23 [Rx Last Taken Unknown] doxycycline monohydrate 100 mg capsule 100 mg PO BID #20 CAPSULES 10/30/23 [Rx Last Taken Unknown] Allergy/AdvReac Type Severity Reaction Status Date / Time perflutren [From Definity] Allergy Intermediate Severe Verified 10/30/23 19:13 back and hip pain Family History Mother Colon cancer Grandmother Diabetes Surgical History History of left heart catheterization (LHC) (~06/18/21) S/P cataract extraction S/P laparoscopic cholecystectomy Status post amputation of toe Social History Smoking Status: Former smoker how long ago did patient quit smoking: Used to smoke occasional cigar second hand exposure: Yes alcohol intake: current alcohol intake frequency: a few times a month substance use type: does not use caffeine: Yes Type: coffee and tea ROS ROS ED ROS Narrative A complete review of systems was performed and is negative except as documented in the history of present illness. Some specific details below. Constitutional: No recent fevers or chills. No malaise. Possible mild tiredness. EYE: No discharge, visual complaints, or pain. ENT: No difficulty swallowing. No swelling. No pain. No reflux symptoms. CV: No chest pain or palpitations. History of CHF but well-controlled and no symptoms. Respiratory: Not short of breath with coughing. GI: No abdominal pain. No nausea vomiting diarrhea. No blood in stool. Diet has been normal. : No frequency dysuria or hematuria. Musculoskeletal: See history of present illness Skin: Open area below right great toe and a little bit of redness and swelling of his foot. Neuro: No weakness or numbness. Endocrine: No polyuria or polydipsia. EXAM Physical Exam Narrative Exam Narrative: CONSTITUTIONAL: Patient is nontoxic in appearance. The patient looks comfortable. Work of breathing looks normal. HEENT: No notable trauma. Mucous membranes moist. EYES: No conjunctival injection. NECK:No JVD. No stridor. CARDIOVASCULAR: Regular rate. Regular rhythm. No notable murmur. No JVD. RESPIRATORY: No respiratory distress. Breathing is unlabored. No wheezes. No rhonchi. No rales. No pain with a deep breath. No chest wall tenderness. GASTROINTESTINAL: Not distended. Bowel sounds are normal. No tenderness. He recently had surgery for umbilical hernia. But this looks like it is healing quite well. GENITOURINARY: No tenderness over the bladder. No CVA tenderness. MUSCULOSKELETAL: Patient has a open area on the base toward the tip of his right great toe. It appears dry. There is dry skin over it. But there is a little bit of swelling of the great toe and the medial distal aspect of the right foot. Well-healed incision from removal of his fifth ray in the past. NEUROLOGICAL: Patient is alert and appropriate. Patient can feel me touch any of his toes but cannot isolate which 1. Sensation improves a fair amount of by his heel and ankle. SKIN: See foot exam as above. PSYCHIATRIC: Patient is calm. Mood is appropriate. Const Vital Signs: 10/30/23 19:15 10/30/23 19:17 10/30/23 21:04 Temperature 96.9 F L 96.9 F L 98.2 F Temperature Source Temporal Temporal Oral Pulse Rate 72 72 69 Respiratory Rate 18 18 18 Blood Pressure 116/69 116/69 125/72 H Blood Pressure Mean 84 84 89 Pulse Ox 99 99 100 MDM MDM MDM Narrative Medical decision making narrative: Patient CBC is overall normal. Patient's electrolytes are overall good except his glucose is high at 258. Patient's lactic acid is high at 2.4. But he is on metformin so this is not uncommon. My independent interpretation x-ray of his foot shows what appears to be chronic changes. Radiology read this is cannot rule out osteo of his right great toe tip. I was able to talk to Dr. Morales who is on-call for Dr. Humphries who did prior surgery. He states from the operative note it looks like they did do some surgery on the tip of the phalanx of the great toe which would explain some of the changes. He stated that since the blood work is good and the patient is not toxic, they can see him in wound care center. They will reach out to him tomorrow. They will see him on Tuesday. They will debride the area. If he needs more complex surgery they will work to get him in the hospital as scheduled. Lab Data Attestation: I reviewed the patient's lab results. Labs: Laboratory Results - last 24 hr 10/30/23 20:06 WBC 5.7 RBC 4.88 Hgb 14.6 Hct 45.4 MCV 93.0 MCH 29.9 MCHC 32.2 RDW Std Deviation 45.8 H RDW Coeff of Kylee 13.5 Plt Count 190 MPV 9.7 Immature Gran % (Auto) 0.400 Neut % (Auto) 64.8 Lymph % (Auto) 24.0 Kaufman % (Auto) 7.2 Eos % (Auto) 2.5 Baso % (Auto) 1.1 H Absolute Neuts (auto) 3.7 Absolute Lymphs (auto) 1.37 Nucleated RBC % 0 Sodium 139 Potassium 4.1 Chloride 105 Carbon Dioxide 29.0 Anion Gap 5 BUN 25 H Creatinine 1.05 Estim Creat Clear Calc 95.75 Est GFR (MDRD) Af Amer 92 Est GFR (MDRD) Non-Af 76 BUN/Creatinine Ratio 23.8 H Glucose 258 H Lactic Acid 2.4 H* Calcium 9.1 Radiography Diagnostic Testing: Clinical Impression(s) from Imaging Studies Foot X-Ray 10/30/23 20:15 IMPRESSION: Ulceration overlying the plantar aspect of the first digit. Slight irregularity of the tuft of first digit. Osteomyelitis cannot be excluded. Electronically Signed: Israel Walls MD at 20:42 EST Reading Location ID and State: [facility] / [place] , Service support , Discharge Plan Triage Chief Complaint: Lower Extremity Injury ED Provider: Joby Galeana Dx/Rx/DC Orders Clinical Impression: Diabetic foot ulcer Instructions: Diabetes Foot Infections Tx Prescriptions: New ciprofloxacin HCl [ciprofloxacin HCl] 500 mg tablet 500 mg PO BID Qty: 14 0RF doxycycline monohydrate 100 mg capsule 100 mg PO BID Qty: 20 0RF No Action metformin 500 mg tablet 500 mg PO BID glimepiride 2 mg tablet 2 mg PO DAILY Jardiance 25 mg tablet 25 mg PO DAILY carvedilol 3.125 mg tablet 3.125 mg PO BID Qty: 1 3RF Rx Instructions: must administer with a meal/food insulin aspart U-100 100 unit/mL (3 mL) insulin pen 25 unit SC .COMPLEX Rx Instructions: 25 units subcut ordered TID, usually BID; insulin degludec 100 unit/mL solution 75 unit subcut BID furosemide [Lasix] 40 mg tablet 40 mg PO DAILY Qty: 30 11RF spironolactone 25 mg tablet 25 mg PO DAILY Qty: 30 11RF Entresto 49-51 mg tablet 1 tab PO BID Qty: 180 3RF Primary Care Provider: Care Physician,No Primary Referrals: Bret Craft DPM [Med Staff - Active Staff] - 2 Days (The office should call you tomorrow morning for an appointment on Tuesday.) Care Physician,No Primary [Primary Care Provider] - Disposition Disposition: Home, Self Care
--- NOTE | 2023-10-30 20:15 | RAD_ITS ---
EXAM: XR RIGHT FOOT COMPLETE, 3 OR MORE VIEWS CLINICAL INDICATION: Diabetic infection TECHNIQUE: Frontal, lateral and oblique views of the right foot. COMPARISON: 07/03/2018 FINDINGS: BONES/JOINTS: Ulceration overlying the plantar aspect of the first digit. Slight irregularity of the tuft of first digit. Osteomyelitis cannot be excluded. Amputation of the distal portion of the fifth metatarsal bone. Vascular calcifications. Degenerative changes of the tarsal bones. No acute fracture. No subluxation. Normal alignment. No sclerotic or destructive changes observed. SOFT TISSUES: Unremarkable. No soft tissue swelling or gas. No radiopaque foreign body. OTHER FINDINGS: Hammer toe. RAD/Foot min 3 Views IMPRESSION: Ulceration overlying the plantar aspect of the first digit. Slight irregularity of the tuft of first digit. Osteomyelitis cannot be excluded. Electronically Signed: Israel Walls MD at 20:42 EST ,
[2023-10-30 20:16] LABS: Absolute Lymphocyte Count 1.37 X10^3/uL (0.83-4.51); Absolute Neutrophil Count 3.7 X10^3/uL (2.0-7.7); Basophil# 0.06 X10^3/uL; Basophil% 1.1 % (0-1); Eosinophil# 0.14 X10^3/uL; Eosinophils% 2.5 % (0-5); Hematocrit 45.4 % (40-54); Hemoglobin 14.6 g/dL (13.0-16.5); Lymphocyte # 1.37 X10^3/ul (0.83-4.51); Mean Corp Hgb Conc 32.2 g/dL (32-36); Mean Corpuscular Hgb 29.9 pg (27.0-32.0); Mean Platelet Vol. 9.7 fl (6.2-12.0); Monocyte# 0.41 X10^3/uL; Monocyte% 7.2 % (0-10); NRBC Flagged by Analyzer 0 % (0-5); Neutrophil # 3.71 X10^3/uL (2.7-7.7); Neutrophil % 64.8 % (47-70); Platelet Count 190 K/mm3 (150-450); RBC Distribution Width CV 13.5 % (11.6-14.6); RBC Distribution Width SD 45.8 fl (35.1-43.9); Red Blood Count 4.88 M/mm3 (4.6-6.2); White Blood Count 5.7 K/mm3 (4.4-11.0)
[2023-10-30 20:29] LABS: Anion Gap 5 (5-15); BUN 25 mg/dL (7-18); BUN/Creat Ratio 23.8 RATIO (10-20); Calcium,Total 9.1 mg/dL (8.5-10.1); Chloride 105 mmol/L (98-107); Creatinine, Serum 1.05 mg/dL (0.70-1.30); EST Glomerular Filtration Rate 76 mL/min (>60); Est Glom Filt Rate - Afr Amer 92 mL/min (>60); Estimated Creatinine Clearance 95.75 ml/min; Glucose 258 mg/dL (74-106); Potassium 4.1 mmol/L (3.5-5.1); Sodium Level 139 mmol/L (136-145)
[2023-10-30 20:51] LABS: Lactic Acid 2.4 mmol/L (0.4-1.9)
[2023-10-30] MEDS: Vancomycin HCl 2,000 MG in 0.9% Normal Saline (500mL Bag) 500 ML 250 MG IV (21:03)
[2023-10-30 21:04] VITALS: BP 125/72; PULSE 69; RESP 18; TEMP 36.8; O2SAT 100
[2023-10-30] MEDS: DiphenhydrAMINE 50 MG/ML Syringe 25 MG IV (21:16)
[2023-10-31 00:13] LABS: Reflex Lactate? Y
[2023-10-31 00:20] VITALS: PULSE 97; RESP 25; O2SAT 95
== END 2023-10-31 00:21 | disposition home or self-care (01) ==
PROVIDERS: Emergency Provider Emergency Medicine; Visit Provider Emergency Medicine
DX: E11.621 Type 2 diabetes mellitus with foot ulcer (principal); I50.9 Heart failure, unspecified; Z79.4 Long term (current) use of insulin; Z87.891 Personal history of nicotine dependence; I25.10 Atherosclerotic heart disease of native coronary artery without angina pectoris; Z79.84 Long term (current) use of oral hypoglycemic drugs; Z79.899 Other long term (current) drug therapy; Z90.49 Acquired absence of other specified parts of digestive tract
CPT/HCPCS: 73630; 80048; 83605; 85025; 87040; 99283; J7040; J7050; A4216

== ENCOUNTER → 2023-10-31 | Outpatient (CLI) | payer BC, SELFPAY | END | disposition home or self-care (01) | PROVIDERS: Visit Provider Podiatrist | DX: L97.512 Non-pressure chronic ulcer of other part of right foot with fat layer exposed (principal) | CPT/HCPCS: 87070; 87075; 87077; 87186; 87205 ==

== ENCOUNTER → 2023-11-08 | Outpatient (CLI) | payer BC, SELFPAY ==
[2023-11-08 09:59] LABS: Absolute Lymphocyte Count 1.22 X10^3/uL (0.83-4.51); Absolute Neutrophil Count 3.5 X10^3/uL (2.0-7.7); Basophil# 0.05 X10^3/uL; Basophil% 0.9 % (0-1); Eosinophil# 0.18 X10^3/uL; Eosinophils% 3.4 % (0-5); Hematocrit 47.9 % (40-54); Hemoglobin 15.3 g/dL (13.0-16.5); Lymphocyte # 1.22 X10^3/ul (0.83-4.51); Lymphocyte % 22.8 % (19-41); Mean Corp Hgb Conc 31.9 g/dL (32-36); Mean Corpuscular Hgb 29.5 pg (27.0-32.0); Mean Corpuscular Volume 92.5 fL (80-94); Monocyte# 0.37 X10^3/uL; Monocyte% 6.9 % (0-10); NRBC Flagged by Analyzer 0 % (0-5); Neutrophil # 3.52 X10^3/uL (2.7-7.7); Neutrophil % 65.6 % (47-70); Platelet Count 185 K/mm3 (150-450); RBC Distribution Width CV 13.4 % (11.6-14.6); RBC Distribution Width SD 45.4 fl (35.1-43.9); Red Blood Count 5.18 M/mm3 (4.6-6.2); White Blood Count 5.4 K/mm3 (4.4-11.0)
[2023-11-08 10:19] LABS: BNP,B-Type NATRIURETIC PEPTIDE 26.9 pg/mL (0-100)
[2023-11-08 10:23] LABS: Vitamin D,25 Hydroxy 18.4 ng/mL
[2023-11-08 10:34] LABS: Anion Gap 5 (5-15); BUN 33 mg/dL (7-18); BUN/Creat Ratio 25.6 RATIO (10-20); Calcium,Total 9.5 mg/dL (8.5-10.1); Chloride 108 mmol/L (98-107); Creatinine, Serum 1.29 mg/dL (0.70-1.30); EST Glomerular Filtration Rate 60 mL/min (>60); Est Glom Filt Rate - Afr Amer 73 mL/min (>60); Glucose 344 mg/dL (74-106); Potassium 4.6 mmol/L (3.5-5.1); Sodium Level 137 mmol/L (136-145); Thyroid Stim Hormone (TSH) 2.15 uIU/mL (0.358-3.74)
== END | disposition home or self-care (01) ==
LOC: LAB 09:13
PROVIDERS: Referring Provider Nurse Practitioner Gerontology; Visit Provider Nurse Practitioner Gerontology
DX: R53.83 Other fatigue (principal); I42.9 Cardiomyopathy, unspecified; R06.02 Shortness of breath; E55.9 Vitamin D deficiency, unspecified
CPT/HCPCS: 36415; 80048; 82306; 83880; 84443; 85025

== ENCOUNTER 2023-11-15 10:04 | Outpatient (RCR) | payer BC, SELFPAY ==
[2023-11-15 10:10] VITALS: BP 166/77; PULSE 67; RESP 18; TEMP 35.9; BMI 41.8
--- NOTE | 2023-11-15 11:49 | PCM.WC.HP ---
History of Present Illness Date of Service: 11/15/23 Chief Complaint: Chronic right great toe ulceration with necrosis of bone/osteomyelitis?Peter grade 3 History of Wound: 59-year-old white male with diabetes and other comorbidities was seen today for right foot ulcer. He has completed his 6-week oral antibiotic course under the management of infectious disease without reported side effects. He has a Peter grade 3 ulcer and has also been diagnosed with acute osteomyelitis clinically and with MRI and clinical evaluation. He denies fever, chill, nausea, vomiting, diarrhea or other side effects since he started on antibiotics. He has been undergoing hyperbaric oxygen therapy treatment. [facility] Medical History Atherosclerotic heart disease of [place] coronary artery without angina pectoris CAD (coronary artery disease) Cardiomyopathy Cellulitis of right foot Chronic ulcer of left foot with fat layer exposed Chronic ulcer of right foot with fat layer exposed Chronic ulcer of right foot with necrosis of bone Delayed wound healing Diabetes Foot osteomyelitis, right Gangrene Heart failure Morbid obesity Non-pressure chronic ulcer of right heel and midfoot with bone involvement without evidence of necrosis Obesity (BMI 30-39.9) Osteomyelitis PVD (peripheral vascular disease) Tobacco use Type 2 diabetes mellitus with diabetic polyneuropathy Ventral incisional hernia without obstruction or gangrene Home Medications insulin aspart U-100 100 unit/mL (3 mL) subcutaneous pen 25 unit subcut .COMPLEX 07/07/21 [History Last Taken Unknown] insulin degludec 100 unit/mL subcutaneous solution 75 unit subcut BID Check with primary doctor 12/24/21 [History Last Taken Unknown] glimepiride 2 mg tablet 2 mg PO DAILY 01/03/23 [History Last Taken Unknown] sacubitril 49 mg-valsartan 51 mg tablet (Entresto) 1 tab PO BID #180 tabs 04/12/23 [Rx Last Taken Unknown] carvedilol 6.25 mg tablet 6.25 mg PO BID #180 tabs 11/08/23 [Rx Last Taken Unknown] empagliflozin 25 mg tablet (Jardiance) 25 mg PO DAILY #90 tabs 11/08/23 [Rx Last Taken Unknown] furosemide 40 mg tablet (Lasix) 20 mg (1/2 x 40 mg) PO DAILY #45 tabs 11/08/23 [Rx Last Taken Unknown] metformin 500 mg tablet 1,000 mg PO BID 11/08/23 [History Last Taken Unknown] spironolactone 25 mg tablet 12.5 mg (1/2 x 25 mg) PO DAILY #45 tabs 11/08/23 [Rx Last Taken Unknown] trazodone 50 mg tablet 50 mg PO DAILY 11/08/23 [History Last Taken Unknown] Allergy/AdvReac Type Severity Reaction Status Date / Time perflutren [From Definity] Allergy Intermediate Severe Verified 11/08/23 08:37 back and hip pain Family History Mother Colon cancer Grandmother Diabetes Surgical History History of left heart catheterization (LHC) (~06/18/21) S/P cataract extraction S/P laparoscopic cholecystectomy Status post amputation of toe Social History Smoking Status: Former smoker how long ago did patient quit smoking: Used to smoke occasional cigar second hand exposure: Yes alcohol intake: current alcohol intake frequency: a few times a month substance use type: does not use caffeine: Yes Type: coffee and tea ROS Constitutional Constitutional: Denies change in weight, fatigue or fever(s) Eyes Eyes: Denies change in eye color, change in vision or discongugate gaze ENT HEENT: Denies abnormal hearing, bleeding gums or dysphagia Cardiovascular Cardiovascular: Denies abdominal bloating, bluish discoloration of hand/feet or clubbing Respiratory/Chest Respiratory/Chest: Denies change in mental status, change in phlegm color or difficulty clearing secretions Gastrointestinal Gastrointestinal: Denies belching, bloating or coffee ground emesis Vital Signs Vital Signs Vital Signs: 11/15/23 10:10 Temperature 96.6 F L Temperature Source Temporal Pulse Rate 67 Respiratory Rate 18 Blood Pressure 166/77 H Blood Pressure Mean 106 Blood Pressure Source Monitor Blood Pressure Position Sitting Blood Pressure Location Right Arm Oxygen Delivery Method Room Air Weight Weight: 124.738 kg Body Mass Index (BMI) 41.8 Physical Exam Narrative Vascular: Diminished dorsalis pedis posterior tibial pulses atrophic skin changes suggestive of microvascular disease including but not limited to skin thinning absent digital hair growth, shiny appearance, taut. Neurologic: Absent protective and light touch proximal and sensation of bilateral feet. Dermatologic: Full-thickness wound distal tuft of the right hallux. Pre and postdebridement measurements documented nursing notes. Predebridement there is noted to be significant periwound hyperkeratoses and a stable granular base. Postdebridement wound demonstrates clean granular base with clean skin edges. No evidence of acute infection. Musculoskeletal: Hallux rigidus to bilateral lower extremities. This is a wound forming formerly. Patient had flexor tenotomy right hallux and range of motion is improved to right hallux IPJ. Debridement Note Debridement Note Post-Debridement Measurements and Additional Note: Post-Debridement Measurements/Treatment - Nurse 1 - General Ulcer Assessment Start: 11/15/23 10:10 Freq: Status: Active Protocol: LEILA Activity Type Activity Date Activity User E-sign Co-sign Detail Recorded Client Recorded Date Recorded By Document 11/15/23 10:10 GM Desktop 11/15/23 10:23 GM 11/15/23 10:10 - Today's Visit Information Type of service Initial Visit Arrival Mode Ambulatory Transfer Assistance None Patient Identification Verified (Name & Yes ) Finger Stick Blood Sugar(mg/dl) (if 190 indicated): Blood Sugar Stated by Patient Height and Weight Height 5 ft 8 in Weight 124.738 kg Weight in Pounds 275.0 lbs Weight Measurement Method Stated by Patient Body Mass Index (BMI) 41.8 BMI Classification Obese BSA - Ilana 2.34 Vital Signs Temperature (97.8 F-99.1 F) 96.6 F L Temperature Source Temporal Pulse Rate (60-100) 67 Pulse Location Monitor Respiratory Rate (12-18) 18 Respiratory rate source Observation Oxygen Delivery Method Room Air Blood Pressure (90/60-120/80) 166/77 H Blood Pressure Mean 106 Source Monitor Position Sitting Blood Pressure Location Right Arm History Since Last Visit- (Skip if this is Patient's initial visit) Left Footwear Regular Shoe Right Footwear Surgical Shoe with pressure relief insole Pain Scale: 0-10 Numeric Is Patient Pain Free? Yes Lower Extremity Assessment/ Foot Assessment/ Toe Nail Assessment Right -Posterior Tibial Palpable Yes -Posterior Tibial Doppler Multiphasic -Dorsalis Pedis Palpable Yes -Dorsalis Pedis Doppler Monophasic -Extremity Color Normal -Hair Growth on Legs Yes -Hair Growth on Toes Yes -Temperature of Extremity Warm -Capillary Refill Less than 3 Seconds -Other Deformity No -Prior Foot Ulcer No -Charcot Joint No -Thick No -Discolored No -Deformed No -Improper Length & Hygeine No Neuropathy Assessment Feet - Top Side and Bottom <Entered> (a) Communication Assessment Preferred language [place] Able to Read Yes Able to Write Yes Right Hearing Abillity Normal Left Hearing Abillity Normal Visual Assistive Devices Glasses Teaching Assessment Preferences Verbal,Written Readiness To Learn Good Willingness to Engage in Self Management High Activies Readiness to Engage in Self Management High Activities Anxiety Level Calm Cooperation Cooperative Perception Coherent Does Patient Smoke tobacco or other No substances Is Patient Diabetic Yes Functional Assessment Recent Decline in Ability to Perform Denies Any Declines Culture/Yarsani/Diving Judge Cultural/Yarsani Needs that may affect No Treatment Plan Would you allow our hospital semiconductor technician to No meet you for the purpose of spiritual/ emotional support? (a) 1 - has feeling 2 - numb 3 - numbness WC - Nurse 1 - General Ulcer Measurement Start: 11/15/23 10:10 Freq: Status: Active Protocol: Activity Type Activity Date Activity User E-sign Co-sign Detail Recorded Client Recorded Date Recorded By Document 11/15/23 10:10 Desktop 11/15/23 10:23 GM 11/15/23 10:10 Wound Center Nurse 1 #11 Right Hallux -Current Size (cm) - Length 0.1 -Current Size (cm) - Width 1.0 -Current Size (cm) - Depth 0.3 -Total Square Cm 0.10 -Date of Last Picture (Recall this 11/15/23 field) -Photo Taken Yes -Epithelialization None Present -Tunneling No -Undermining/Tunneling No -Circular Undermining No -Exudate Amt Small -Exudate Type Serous -Wound Margin Thickened -Granulation Quality Pale -Necrotic Tissue Type Adherent Slough -Structure Exposed N/A -Texture (Belle-wound Skin Appearance) Assessed -Moisture (Belle-wound Skin Appearance) Assessed -Color (Belle-wound Skin Appearance) Assessed -Temperature (Belle-wound Skin No Abnormality Appearance) (Pt Warm) -Ulcer Cleansing Rinsed/ Irrigated with Saline -Foul Odor after Cleansing No -Anesthetic Used 5% Lidocaine Gel Right Calf (cm) 40.6 Right Ankle (cm) 24.0 Left Calf (cm) 39.8 Left Ankle (cm) 23.5 WC - Nurse 2 - General Ulcer CM Notes Start: 11/15/23 10:10 Freq: Status: Active Protocol: Activity Type Activity Date Activity User E-sign Co-sign Detail Recorded Client Recorded Date Recorded By Document 11/15/23 10:40 Laptop 11/15/23 10:43 11/15/23 10:40 Wound Center Nurse 2 #11 Right Hallux -Time 10:41 -Correct Patient Yes -Correct Side, Site, Position Yes -Correct Procedure Yes -Procedure Performed Yes -Type of Procedure Debridement -Clinical Debridement Subcutaneous -Tissue Removed Subcutaneous -Post Debridement (cm) - Length 1.1 -Post Debridement (cm) - Width 1.1 -Post Debridement (cm) - Depth 0.2 -Total Square (Post) (cm) 1.21 -Area of Debridement (cm) - Length 1.1 -Area of Debridement (cm) - Width 1.1 -Total Square (Area) (cm) 1.21 -Tunneling No -Undermining/Tunneling No -Circular Undermining No -Wound/Ulcer Outcome Not Healed -Ulcer Cleansing Rinsed/ Irrigated with Saline -Foul Odor after Cleansing No -Bioengineered Tissue No -Bleeding Controlled with Pressure -Treatment Response Procedure Tolerated Well -Offloading Yes -Type of Offloading Surgical Shoe -Debridement - Subq, 1st 20sq cm Yes Pain Scale: 0-10 Numeric Is Patient Pain Free? Yes - Nurse 3 - General Ulcer D/C NN Start: 11/15/23 10:10 Freq: Status: Active Protocol: Activity Type Activity Date Activity User E-sign Co-sign Detail Recorded Client Recorded Date Recorded By Document 11/15/23 11:05 Desktop 11/15/23 11:06 11/15/23 11:05 Wound Care Center Nurse 3 #11 Right Hallux -Ulcer Cleansing Not Cleansed -Foul Odor after Cleansing No -Primary Dressing Applied Promogran Rita Matter -Primary Dressing Covered/Secured with Dry Gauze & Roll Gauze, Secured with Tape -Promogran Rita Matter 1 Pain Scale: 0-10 Numeric Is Patient Pain Free? Yes Teaching: Wound Center Dressing Your Wound -Person Taught Patient -Teaching Method Demonstration -Response to teaching Verbalize understanding - Visit Discharge Discharge Condition Stable Ambulatory Status Ambulatory Transportation Private Auto Medication Reconcilliation completed & Yes provided to patient/care provider Clinical Summary of Care Provided Yes Assessment/Plan Assessment/Plan (1) Non-pressure chronic ulcer of other part of right foot with fat layer exposed: CODE(S): L97.512 - Non-pressure chronic ulcer of other part of right foot with fat layer exposed PLAN: Exam performed Patient underwent flexor tenotomy in office last week., Wound improved today. Range of motion improved right hallux IPJ. Right hallux wound excisionally debrided down to including level of subcutaneous tissue of all nonviable tissue using 5 mm dermal curette and #15 blade. Pre and postdebridement measurements documented nursing notes. Patient tolerated procedure and well. No anesthesia due to neuropathy. Hemostasis obtained with light compression. Patient is to maintain heel weightbearing in surgical shoe during ambulation. Patient has a knee scooter that he uses to maintain nonweightbearing status throughout the day. 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 If there are any delays wound healing we will consider additional restrictions. Will consider advanced wound care grafting. Follow-up 1 week. 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
== END 2023-11-17 23:59 | disposition home or self-care (01) ==
LOC: WC 10:04
PROVIDERS: Referring Provider Podiatrist; Visit Provider Podiatrist
DX: E11.621 Type 2 diabetes mellitus with foot ulcer (principal); L97.512 Non-pressure chronic ulcer of other part of right foot with fat layer exposed; E11.42 Type 2 diabetes mellitus with diabetic polyneuropathy; Z79.4 Long term (current) use of insulin; I25.10 Atherosclerotic heart disease of native coronary artery without angina pectoris; Z87.891 Personal history of nicotine dependence
CPT/HCPCS: 11042; 99213; G0463

== ENCOUNTER 2023-12-13 09:45 | Outpatient (RCR) | payer OTHER, SELFPAY ==
[2023-11-18 00:41] VITALS: BP 166/77; PULSE 67; RESP 18; TEMP 35.9; BMI 41.8
[2023-11-22 10:17] VITALS: BP 129/70; PULSE 71; RESP 18; TEMP 35.8; BMI 41.8
--- NOTE | 2023-11-22 11:00 | PCM.WC.PN ---
History of Present Illness Date of Service: 11/22/23 Chief Complaint: Chronic right great toe ulceration with necrosis of bone/osteomyelitis?Peter grade 3 History of Wound: 59-year-old white male with diabetes and other comorbidities was seen today for right foot ulcer. He has completed his 6-week oral antibiotic course under the management of infectious disease without reported side effects. He has a Peter grade 3 ulcer and has also been diagnosed with acute osteomyelitis clinically and with MRI and clinical evaluation. He denies fever, chill, nausea, vomiting, diarrhea or other side effects since he started on antibiotics. He has been undergoing hyperbaric oxygen therapy treatment. Objective Data Objective Data Vital Signs: Vital Signs Temp Pulse Resp BP O2 Del Method 96.4 F L 71 18 129/70 H Room Air 11/22/23 10:17 11/22/23 10:17 11/22/23 10:17 11/22/23 10:17 11/22/23 10:17 Oxygen Delivery Method Room Air Weight: 124.738 kg Body Mass Index (BMI) 41.8 Physical Exam Narrative Vascular: Diminished dorsalis pedis posterior tibial pulses atrophic skin changes suggestive of microvascular disease including but not limited to skin thinning absent digital hair growth, shiny appearance, taut. Neurologic: Absent protective and light touch proximal and sensation of bilateral feet. Dermatologic: Full-thickness wound distal tuft of the right hallux. Pre and postdebridement measurements documented nursing notes. Predebridement there is noted to be significant periwound hyperkeratoses and a stable granular base. Postdebridement wound demonstrates clean granular base with clean skin edges. No evidence of acute infection. Musculoskeletal: Hallux rigidus to bilateral lower extremities. This is a wound forming formerly. Patient had flexor tenotomy right hallux and range of motion is improved to right hallux IPJ. Debridement Note Debridement Note Post-Debridement Measurements and Additional Note: Post-Debridement Measurements/Treatment WC - Nurse 1 - General Ulcer Assessment Start: 11/22/23 10:15 Freq: Status: Active Protocol: LEILA Activity Type Activity Date Activity User E-sign Co-sign Detail Recorded Client Recorded Date Recorded By Document 11/22/23 10:17 KW Desktop 11/22/23 10:24 KW 11/22/23 10:17 - Today's Visit Information Type of service Follow-up Visit (Physician/SPECIALIZED DEVELOPER ) Arrival Mode Ambulatory Patient Identification Verified (Name & Yes ) Height and Weight Body Mass Index (BMI) 41.8 BMI Classification Obese Vital Signs Temperature (97.8 F-99.1 F) 96.4 F L Temperature Source Temporal Pulse Rate (60-100) 71 Pulse Location Monitor Respiratory Rate (12-18) 18 Respiratory rate source Observation Oxygen Delivery Method Room Air Blood Pressure (90/60-120/80) 129/70 H Blood Pressure Mean (mm Hg) 89 Source Monitor Position Semi-Fowlers Blood Pressure Location Right Arm History Since Last Visit- (Skip if this is Patient's initial visit) Have you changed medications since your No last visit? Any new allergies or adverse reactions No Had a fall/change in ADL's that may No increase risk of falls Signs or symptoms of abuse and/or No neglect since last visit Have you been in the hospital since your No last visit? Has dressing in place as prescribed Yes Has compression in place as prescribed N/A Has offloadiing in place as prescribed Yes Experienced any changes in pain level or No management Left Footwear Regular Shoe Right Footwear Surgical Shoe with pressure relief insole Pain Scale: 0-10 Numeric Is Patient Pain Free? Yes WC - Nurse 1 - General Ulcer Measurement Start: 11/22/23 10:15 Freq: Status: Active Protocol: Activity Type Activity Date Activity User E-sign Co-sign Detail Recorded Client Recorded Date Recorded By Document 11/22/23 10:17 KW Desktop 11/22/23 10:24 KW 11/22/23 10:17 Wound Center Nurse 1 #11 Right Hallux -Current Size (cm) - Length 0.5 -Current Size (cm) - Width 0.7 -Current Size (cm) - Depth 0.3 -Total Square Cm 0.35 -Exudate Amt Small -Exudate Type Serosanguineous -Wound Margin Distinct, Outline Attached -Granulation Amt Large (67-100%) -Granulation Quality [place] -Necrosis Amt Small (1-33%) -Necrotic Tissue Type Adherent Slough -Texture (Belle-wound Skin Appearance) Assessed,Callus -Moisture (Belle-wound Skin Appearance) Assessed -Color (Belle-wound Skin Appearance) Assessed -Ulcer Cleansing Rinsed/ Irrigated with Saline -Anesthetic Used 5% Lidocaine Gel WC - Nurse 2 - General Ulcer CM Notes Start: 11/22/23 10:15 Freq: Status: Active Protocol: Activity Type Activity Date Activity User E-sign Co-sign Detail Recorded Client Recorded Date Recorded By Document 11/22/23 10:38 Laptop 11/22/23 10:41 11/22/23 10:38 Wound Center Nurse 2 -Time 10:38 -Correct Patient Yes -Correct Side, Site, Position Yes -Correct Procedure Yes -Procedure Performed Yes -Type of Procedure Debridement -Clinical Debridement Subcutaneous -Tissue Removed Subcutaneous -Post Debridement (cm) - Length 0.9 -Post Debridement (cm) - Width 1.3 -Post Debridement (cm) - Depth 0.2 -Total Square (Post) (cm) 1.17 -Area of Debridement (cm) - Length 0.9 -Area of Debridement (cm) - Width 1.3 -Total Square (Area) (cm) 1.17 -Tunneling No -Undermining/Tunneling No -Circular Undermining No -Wound/Ulcer Outcome Not Healed -Ulcer Cleansing Rinsed/ Irrigated with Saline -Foul Odor after Cleansing No -Bioengineered Tissue No -Bleeding Controlled with Pressure -Treatment Response Procedure Tolerated Well -Offloading Yes -Type of Offloading Surgical Shoe -Debridement - Subq, 1st 20sq cm Yes Pain Scale: 0-10 Numeric Is Patient Pain Free? Yes - Nurse 3 - General Ulcer D/C NN Start: 11/22/23 10:15 Freq: Status: Active Protocol: Activity Type Activity Date Activity User E-sign Co-sign Detail Recorded Client Recorded Date Recorded By Document 11/22/23 10:47 KW Desktop 11/22/23 10:48 KW 11/22/23 10:47 Wound Care Center Nurse 3 #11 Right Hallux -Ulcer Cleansing Rinsed/ Irrigated with Saline -Primary Dressing Applied Promogran Rita Matter -Primary Dressing Covered/Secured with Dry Gauze, Secured with Tape -Promogran Rita Matter 1 Pain Scale: 0-10 Numeric Is Patient Pain Free? Yes - Visit Discharge Discharge Condition Stable Ambulatory Status Ambulatory Transportation Private Auto Medication Reconcilliation completed & No provided to patient/care provider Clinical Summary of Care Provided Yes Assessment/Plan Assessment/Plan (1) Non-pressure chronic ulcer of other part of right foot with fat layer exposed: CODE(S): L97.512 - Non-pressure chronic ulcer of other part of right foot with fat layer exposed PLAN: Exam performed Patient underwent flexor tenotomy in office two weeks prior, Wound improved today. Range of motion improved right hallux IPJ. Right hallux wound excisionally debrided down to including level of subcutaneous tissue of all nonviable tissue using 5 mm dermal curette and #15 blade. Pre and postdebridement measurements documented nursing notes. Patient tolerated procedure and well. No anesthesia due to neuropathy. Hemostasis obtained with light compression. Patient is to maintain heel weightbearing in surgical shoe during ambulation. Patient has a knee scooter that he uses to maintain nonweightbearing status throughout the day. 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 If there are any delays wound healing we will consider additional restrictions. Will consider advanced wound care grafting. Follow-up 1 week. (2) Type 2 diabetes mellitus with diabetic polyneuropathy: CODE(S): E11.42 - Type 2 diabetes mellitus with diabetic polyneuropathy QUALIFIERS: Diabetes mellitus skilled nursing insulin use: with roasterman use Qualified Code(s): E11.42 - Type 2 diabetes mellitus with diabetic polyneuropathy; Z79.4 - intermediate card tender (current) use of insulin
[2023-11-29 09:47] VITALS: BP 153/69; PULSE 70; RESP 18; TEMP 35.7; BMI 41.8
--- NOTE | 2023-11-29 10:36 | PN.PCM_ITS ---
History of Present Illness Date of Service: 11/29/23 Chief Complaint: Chronic right great toe ulceration with necrosis of bone/ osteomyelitis?Peter grade 3 History of Wound: 59-year-old white male with diabetes and other comorbidities was seen today for right foot ulcer. He has completed his 6-week oral antibiotic course under the management of infectious disease without reported side effects. He has a Peter grade 3 ulcer and has also been diagnosed with acute osteomyelitis clinically and with MRI and clinical evaluation. He denies fever, chill, nausea, vomiting, diarrhea or other side effects since he started on antibiotics. He has been undergoing hyperbaric oxygen therapy treatment. Objective Data Objective Data Vital Signs: Vital Signs Temp Pulse Resp BP O2 Del Method 96.3 F L 70 18 153/69 H Room Air 11/29/23 09:47 11/29/23 09:47 11/29/23 09:47 11/29/23 09:47 11/29/23 09:47 Oxygen Delivery Method Room Air Weight: 124.738 kg Body Mass Index (BMI) 41.8 Physical Exam Narrative Vascular: Diminished dorsalis pedis posterior tibial pulses atrophic skin changes suggestive of microvascular disease including but not limited to skin thinning absent digital hair growth, shiny appearance, taut. Neurologic: Absent protective and light touch proximal and sensation of bilateral feet. Dermatologic: Full-thickness wound distal tuft of the right hallux. Pre and postdebridement measurements documented nursing notes. Predebridement there is noted to be significant periwound hyperkeratoses and a stable granular base. Postdebridement wound demonstrates clean granular base with clean skin edges. No evidence of acute infection. Musculoskeletal: Hallux rigidus to bilateral lower extremities. This is a wound forming formerly. Patient had flexor tenotomy right hallux and range of motion is improved to right hallux IPJ. Debridement Note Debridement Note Post-Debridement Measurements and Additional Note: Post-Debridement Measurements/Treatment KULWINDER - Nurse 1 - General Ulcer Assessment Start: 11/22/23 10:15 Freq: Status: Active Protocol: LEILA Activity Type Activity Date Activity User E-sign Co-sign Detail Recorded Client Recorded Date Recorded By Document 11/22/23 10:17 KW Desktop 11/22/23 10:24 KW Document 11/29/23 09:47 KW Desktop 11/29/23 09:54 KW 11/22/23 11/29/23 10:17 09:47 - Today's Visit Information Type of service Follow-up Visit Follow-up Visit (Physician/MAINTENANCE AND OPERATIONS SUPERVISOR (Physician/MAINTENANCE AND OPERATIONS SUPERVISOR ) ) Arrival Mode Ambulatory Ambulatory Patient Identification Verified (Name & Yes Yes ) Height and Weight Body Mass Index (BMI) 41.8 41.8 BMI Classification Obese Obese Vital Signs Temperature (97.8 F-99.1 F) 96.4 F L 96.3 F L Temperature Source Temporal Temporal Pulse Rate (60-100) 71 70 Pulse Location Monitor Monitor Respiratory Rate (12-18) 18 18 Respiratory rate source Observation Observation Oxygen Delivery Method Room Air Room Air Blood Pressure (90/60-120/80) 129/70 H 153/69 H Blood Pressure Mean (mm Hg) 89 97 Source Monitor Monitor Position Semi-Fowlers Semi-Fowlers Blood Pressure Location Right Arm Left Arm History Since Last Visit- (Skip if this is Patient's initial visit) Have you changed medications since your No No last visit? Any new allergies or adverse reactions No No Had a fall/change in ADL's that may No No increase risk of falls Signs or symptoms of abuse and/or No No neglect since last visit Have you been in the hospital since your No No last visit? Has dressing in place as prescribed Yes Yes Has compression in place as prescribed N/A N/A Has offloadiing in place as prescribed Yes N/A Experienced any changes in pain level or No No management Left Footwear Regular Shoe Regular Shoe Right Footwear Surgical Shoe Regular Shoe with pressure relief insole Pain Scale: 0-10 Numeric Is Patient Pain Free? Yes Yes - Nurse 1 - General Ulcer Measurement Start: 11/22/23 10:15 Freq: Status: Active Protocol: Activity Type Activity Date Activity User E-sign Co-sign Detail Recorded Client Recorded Date Recorded By Document 11/22/23 10:17 KW Desktop 11/22/23 10:24 KW Document 11/29/23 09:47 KW Desktop 11/29/23 09:54 KW 11/22/23 11/29/23 10:17 09:47 Wound Center Nurse 1 #11 Right Hallux -Current Size (cm) - Length 0.5 0.5 -Current Size (cm) - Width 0.7 0.9 -Current Size (cm) - Depth 0.3 0.2 -Total Square Cm 0.35 0.45 -Undermining/Tunneling Yes -Undermining/Tunneling Starts (O'clock 11 ) -Undermining/Tunneling Ends (O'clock) 1 -Maximum Distance (cm) 0.1 -Exudate Amt Small None Present -Exudate Type Serosanguineous -Wound Margin Distinct, Distinct, Outline Outline Attached Attached -Granulation Amt Large (67-100%) Large (67-100%) -Granulation Quality [place] -Necrosis Amt Small (1-33%) -Necrotic Tissue Type Adherent Slough -Texture (Belle-wound Skin Appearance) Assessed,Callus Assessed,Callus -Moisture (Belle-wound Skin Appearance) Assessed Assessed -Color (Belle-wound Skin Appearance) Assessed Assessed -Temperature (Belle-wound Skin No Abnormality Appearance) (Pt Warm) -Ulcer Cleansing Rinsed/ Rinsed/ Irrigated with Irrigated with Saline Saline -Foul Odor after Cleansing No -Anesthetic Used 5% Lidocaine 5% Lidocaine Gel Gel WC - Nurse 2 - General Ulcer CM Notes Start: 11/22/23 10:15 Freq: Status: Active Protocol: Activity Type Activity Date Activity User E-sign Co-sign Detail Recorded Client Recorded Date Recorded By Document 11/22/23 10:38 Laptop 11/22/23 10:41 Document 11/29/23 10:21 Laptop 11/29/23 10:23 11/22/23 11/29/23 10:38 10:21 Wound Center Nurse 2 #11 Right Hallux -Time 10:38 10:21 -Correct Patient Yes Yes -Correct Side, Site, Position Yes Yes -Correct Procedure Yes Yes -Procedure Performed Yes Yes -Type of Procedure Debridement Debridement -Clinical Debridement Subcutaneous Subcutaneous -Tissue Removed Subcutaneous Subcutaneous -Post Debridement (cm) - Length 0.9 0.6 -Post Debridement (cm) - Width 1.3 1.0 -Post Debridement (cm) - Depth 0.2 0.1 -Total Square (Post) (cm) 1.17 0.60 -Area of Debridement (cm) - Length 0.9 0.6 -Area of Debridement (cm) - Width 1.3 1.0 -Total Square (Area) (cm) 1.17 0.60 -Tunneling No No -Undermining/Tunneling No No -Circular Undermining No No -Wound/Ulcer Outcome Not Healed Not Healed -Ulcer Cleansing Rinsed/ Rinsed/ Irrigated with Irrigated with Saline Saline -Foul Odor after Cleansing No No -Bioengineered Tissue No No -Bleeding Controlled with Pressure Pressure -Treatment Response Procedure Procedure Tolerated Well Tolerated Well -Offloading Yes No -Type of Offloading Surgical Shoe -Debridement - Subq, 1st 20sq cm Yes Yes Pain Scale: 0-10 Numeric Is Patient Pain Free? Yes Yes - Nurse 3 - General Ulcer D/C NN Start: 11/22/23 10:15 Freq: Status: Active Protocol: Activity Type Activity Date Activity User E-sign Co-sign Detail Recorded Client Recorded Date Recorded By Document 11/22/23 10:47 KW Desktop 11/22/23 10:48 KW Document 11/29/23 10:30 KW Desktop 11/29/23 10:30 KW 11/22/23 11/29/23 10:47 10:30 Wound Care Center Nurse 3 #11 Right Hallux -Ulcer Cleansing Rinsed/ Rinsed/ Irrigated with Irrigated with Saline Saline -Primary Dressing Applied Promogran Promogran Rita Matter Rita Matter -Primary Dressing Covered/Secured with Dry Gauze, Dry Gauze & Secured with Roll Gauze, Tape Secured with Tape -Promogran Rita Matter 1 1 Pain Scale: 0-10 Numeric Is Patient Pain Free? Yes Yes - Visit Discharge Discharge Condition Stable Stable Ambulatory Status Ambulatory Ambulatory Transportation Private Auto Private Auto Medication Reconcilliation completed & No No provided to patient/care provider Clinical Summary of Care Provided Yes Yes Assessment/Plan Assessment/Plan (1) Non-pressure chronic ulcer of other part of right foot with fat layer exposed: CODE(S): L97.512 - Non-pressure chronic ulcer of other part of right foot with fat layer exposed PLAN: Exam performed Patient underwent flexor tenotomy in office two weeks prior, Wound improved today. Range of motion improved right hallux IPJ. Right hallux wound excisionally debrided down to including level of subcutaneous tissue of all nonviable tissue using 5 mm dermal curette and #15 blade. Pre and postdebridement measurements documented nursing notes. Patient tolerated procedure and well. No anesthesia due to neuropathy. Hemostasis obtained with light compression. Patient is to maintain heel weightbearing in surgical shoe during ambulation. Patient has a knee scooter that he uses to maintain nonweightbearing status throughout the day. 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 If there are any delays wound healing we will consider additional restrictions. Will consider advanced wound care grafting. Follow-up 1 week. (2) Type 2 diabetes mellitus with diabetic polyneuropathy: CODE(S): E11.42 - Type 2 diabetes mellitus with diabetic polyneuropathy QUALIFIERS: Diabetes mellitus supervisor intermediates insulin use: with supervisor intermediates use Qualified Code(s): E11.42 - Type 2 diabetes mellitus with diabetic polyneuropathy; Z79.4 - terminal supervisor (current) use of insulin
[2023-12-06 09:50] VITALS: BP 166/78; PULSE 75; RESP 18; TEMP 36.3; BMI 41.8
--- NOTE | 2023-12-06 10:44 | PCM.WC.PN ---
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 He has completed his 6-week oral antibiotic course under the management of infectious disease without reported side effects. He denies fever, chill, nausea, vomiting, diarrhea or other side effects since he started on antibiotics. He has been undergoing hyperbaric oxygen therapy treatment. Objective Data Objective Data Vital Signs: Vital Signs Temp Pulse Resp BP O2 Del Method 97.3 F L 75 18 166/78 H Room Air 12/06/23 09:50 12/06/23 09:50 12/06/23 09:50 12/06/23 09:50 12/06/23 09:50 Oxygen Delivery Method Room Air Weight: 124.738 kg Body Mass Index (BMI) 41.8 Physical Exam Narrative Vascular: Diminished dorsalis pedis posterior tibial pulses atrophic skin changes suggestive of microvascular disease including but not limited to skin thinning absent digital hair growth, shiny appearance, taut. Neurologic: Absent protective and light touch proximal and sensation of bilateral feet. Dermatologic: Full-thickness wound distal tuft of the right hallux. Pre and postdebridement measurements documented nursing notes. Predebridement there is noted to be significant periwound hyperkeratoses and a stable granular base. Postdebridement wound demonstrates clean granular base with clean skin edges. No evidence of acute infection. Musculoskeletal: Hallux rigidus to bilateral lower extremities. This is a wound forming formerly. Patient had flexor tenotomy right hallux and range of motion is improved to right hallux IPJ. Debridement Note Debridement Note Post-Debridement Measurements and Additional Note: Post-Debridement Measurements/Treatment KULWINDER - Nurse 1 - General Ulcer Assessment Start: 11/22/23 10:15 Freq: Status: Active Protocol: LEILA Activity Type Activity Date Activity User E-sign Co-sign Detail Recorded Client Recorded Date Recorded By Document 11/22/23 10:17 KW Desktop 11/22/23 10:24 KW Document 11/29/23 09:47 KW Desktop 11/29/23 09:54 KW Document 12/06/23 09:50 KW Desktop 12/06/23 09:57 KW 03/02/0911/29/23 12/06/23 10:17 09:47 09:50 - Today's Visit Information Type of service Follow-up Visit Follow-up Visit Follow-up Visit (Physician/MANAGING CONSULTANT CLINICAL PROFESSOR (Physician/MANAGING CONSULTANT CLINICAL PROFESSOR (Physician/MANAGING CONSULTANT CLINICAL PROFESSOR ) ) ) Arrival Mode Ambulatory Ambulatory Ambulatory Patient Identification Verified (Name & Yes Yes Yes ) Height and Weight Body Mass Index (BMI) 41.8 41.8 41.8 BMI Classification Obese Obese Obese Vital Signs Temperature (97.8 F-99.1 F) 96.4 F L 96.3 F L 97.3 F L Temperature Source Temporal Temporal Temporal Pulse Rate (60-100) 71 70 75 Pulse Location Monitor Monitor Monitor Respiratory Rate (12-18) 18 18 18 Respiratory rate source Observation Observation Observation Oxygen Delivery Method Room Air Room Air Room Air Blood Pressure (90/60-120/80) 129/70 H 153/69 H 166/78 H Blood Pressure Mean (mm Hg) 89 97 107 Source Monitor Monitor Monitor Position Semi-Fowlers Semi-Fowlers Semi-Fowlers Blood Pressure Location Right Arm Left Arm Left Arm History Since Last Visit- (Skip if this is Patient's initial visit) Have you changed medications since your No No No last visit? Any new allergies or adverse reactions No No No Had a fall/change in ADL's that may No No No increase risk of falls Signs or symptoms of abuse and/or No No No neglect since last visit Have you been in the hospital since your No No No last visit? Has dressing in place as prescribed Yes Yes Yes Has compression in place as prescribed N/A N/A Yes Has offloadiing in place as prescribed Yes N/A N/A Experienced any changes in pain level or No No No management Left Footwear Regular Shoe Regular Shoe Regular Shoe Right Footwear Surgical Shoe Regular Shoe Regular Shoe with pressure relief insole Pain Scale: 0-10 Numeric Is Patient Pain Free? Yes Yes Yes - Nurse 1 - General Ulcer Measurement Start: 11/22/23 10:15 Freq: Status: Active Protocol: Activity Type Activity Date Activity User E-sign Co-sign Detail Recorded Client Recorded Date Recorded By Document 11/22/23 10:17 KW Desktop 11/22/23 10:24 KW Document 11/29/23 09:47 KW Desktop 11/29/23 09:54 KW Document 12/06/23 09:50 KW Desktop 12/06/23 09:57 KW 11/22/23 11/29/23 12/06/23 10:17 09:47 09:50 Wound Center Nurse 1 #11 Right Hallux -Current Size (cm) - Length 0.5 0.5 0.5 -Current Size (cm) - Width 0.7 0.9 0.8 -Current Size (cm) - Depth 0.3 0.2 0.1 -Total Square Cm 0.35 0.45 0.40 -Undermining/Tunneling Yes -Undermining/Tunneling Starts (O'clock 11 ) -Undermining/Tunneling Ends (O'clock) 1 -Maximum Distance (cm) 0.1 -Exudate Amt Small None Present Small -Exudate Type Serosanguineous Serosanguineous -Wound Margin Distinct, Distinct, Distinct, Outline Outline Outline Attached Attached Attached -Granulation Amt Large (67-100%) Large (67-100%) Large (67-100%) -Granulation Quality Leyner Leyner Leyner -Necrosis Amt Small (1-33%) -Necrotic Tissue Type Adherent Slough -Texture (Belle-wound Skin Appearance) Assessed,Callus Assessed,Callus Assessed,Callus -Moisture (Belle-wound Skin Appearance) Assessed Assessed Assessed -Color (Belle-wound Skin Appearance) Assessed Assessed Assessed -Temperature (Belle-wound Skin No Abnormality No Abnormality Appearance) (Pt Warm) (Pt Warm) -Ulcer Cleansing Rinsed/ Rinsed/ Rinsed/ Irrigated with Irrigated with Irrigated with Saline Saline Saline -Foul Odor after Cleansing No -Anesthetic Used 5% Lidocaine 5% Lidocaine 5% Lidocaine Gel Gel Gel WC - Nurse 2 - General Ulcer CM Notes Start: 11/22/23 10:15 Freq: Status: Active Protocol: Activity Type Activity Date Activity User E-sign Co-sign Detail Recorded Client Recorded Date Recorded By Document 11/22/23 10:38 Laptop 11/22/23 10:41 Document 11/29/23 10:21 Laptop 11/29/23 10:23 Document 12/06/23 10:06 Laptop 12/06/23 10:15 11/22/23 11/29/23 12/06/23 10:38 10:21 10:06 Wound Center Nurse 2 #11 Right Hallux -Time 10:38 10:21 10:07 -Correct Patient Yes Yes Yes -Correct Side, Site, Position Yes Yes Yes -Correct Procedure Yes Yes Yes -Procedure Performed Yes Yes Yes -Type of Procedure Debridement Debridement Debridement -Clinical Debridement Subcutaneous Subcutaneous Subcutaneous -Tissue Removed Subcutaneous Subcutaneous Subcutaneous -Post Debridement (cm) - Length 0.9 0.6 1.0 -Post Debridement (cm) - Width 1.3 1.0 0.4 -Post Debridement (cm) - Depth 0.2 0.1 0.1 -Total Square (Post) (cm) 1.17 0.60 0.40 -Area of Debridement (cm) - Length 0.9 0.6 1.0 -Area of Debridement (cm) - Width 1.3 1.0 0.4 -Total Square (Area) (cm) 1.17 0.60 0.40 -Tunneling No No No -Undermining/Tunneling No No No -Circular Undermining No No No -Wound/Ulcer Outcome Not Healed Not Healed Not Healed -Ulcer Cleansing Rinsed/ Rinsed/ Rinsed/ Irrigated with Irrigated with Irrigated with Saline Saline Saline -Foul Odor after Cleansing No No No -Bioengineered Tissue No No Yes -Type of Bioengineered Tissue Epifix 18mm Disc -Expiration Date 07/20/28 -Product Lot Number [id number] -Percent Used 100 -Lot number of Saline Used [id number] -Bleeding Controlled with Pressure Pressure Pressure -Treatment Response Procedure Procedure Procedure Tolerated Well Tolerated Well Tolerated Well -Offloading Yes No Yes -Type of Offloading Surgical Shoe Surgical Shoe -Debridement - Subq, 1st 20sq cm Yes Yes No -Apply Skin Sub - 1st 25 sq cm - Feet 1 -Epifix 18mm Disc 3 Pain Scale: 0-10 Numeric Is Patient Pain Free? Yes Yes Yes WC - Nurse 3 - General Ulcer D/C NN Start: 11/22/23 10:15 Freq: Status: Active Protocol: Activity Type Activity Date Activity User E-sign Co-sign Detail Recorded Client Recorded Date Recorded By Document 11/22/23 10:47 KW Desktop 11/22/23 10:48 KW Document 11/29/23 10:30 KW Desktop 11/29/23 10:30 KW Document 12/06/23 10:20 KW Desktop 12/06/23 10:21 KW 11/22/23 11/29/23 12/06/23 10:47 10:30 10:20 Wound Care Center Nurse 3 #11 Right Hallux -Ulcer Cleansing Rinsed/ Rinsed/ Irrigated with Irrigated with Saline Saline -Primary Dressing Applied Promogran Promogran Rita Matter Rita Matter -Primary Dressing Covered/Secured with Dry Gauze, Dry Gauze & Dry Gauze & Secured with Roll Gauze, Roll Gauze, Tape Secured with Secured with Tape Tape -Promogran Rita Matter 1 1 Pain Scale: 0-10 Numeric Is Patient Pain Free? Yes Yes Yes WC - Visit Discharge Discharge Condition Stable Stable Stable Ambulatory Status Ambulatory Ambulatory Ambulatory Transportation Private Auto Private Auto Private Auto Medication Reconcilliation completed & No No No provided to patient/care provider Clinical Summary of Care Provided Yes Yes Yes Assessment/Plan Assessment/Plan (1) Non-pressure chronic ulcer of other part of right foot with fat layer exposed: CODE(S): L97.512 - Non-pressure chronic ulcer of other part of right foot with fat layer exposed PLAN: Exam performed Patient underwent flexor tenotomy in office two weeks prior, Wound improved today. Range of motion improved right hallux IPJ. Right hallux wound excisionally debrided down to including level of subcutaneous tissue of all nonviable tissue using 5 mm dermal curette and #15 blade. Pre and postdebridement measurements documented nursing notes. Patient tolerated procedure and well. No anesthesia due to neuropathy. Hemostasis obtained with light compression. Today epi fix graft was applied directly to the wound site. Entire graft used, no waste. This was an 18 mm disc. This was secured with overlying wound veil and Steri-Strips. Overlying dry sterile dressing was applied. Patient is to maintain heel weightbearing in surgical shoe during ambulation. Patient has a knee scooter that he uses to maintain nonweightbearing status throughout the day. 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 If there are any delays wound healing we will consider additional restrictions. Follow-up 1 week. (2) Type 2 diabetes mellitus with diabetic polyneuropathy: CODE(S): E11.42 - Type 2 diabetes mellitus with diabetic polyneuropathy QUALIFIERS: Diabetes mellitus penitentiary insulin use: with continuous churn buttermaker use Qualified Code(s): E11.42 - Type 2 diabetes mellitus with diabetic polyneuropathy; Z79.4 - penitentiary (current) use of insulin
[2023-12-13 09:51] VITALS: BP 140/62; PULSE 79; RESP 20; TEMP 35.8; BMI 41.8
--- NOTE | 2023-12-13 10:20 | PN.PCM_ITS ---
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 He has completed his 6-week oral antibiotic course under the management of infectious disease without reported side effects. He denies fever, chill, nausea, vomiting, diarrhea or other side effects since he started on antibiotics. He has been undergoing hyperbaric oxygen therapy treatment. Objective Data Objective Data Vital Signs: Vital Signs Temp Pulse Resp BP O2 Del Method 96.5 F L 79 20 H 140/62 H Room Air 12/13/23 09:51 12/13/23 09:51 12/13/23 09:51 12/13/23 09:51 12/06/23 09:50 Oxygen Delivery Method Room Air Weight: 124.738 kg Body Mass Index (BMI) 41.8 Physical Exam Narrative Vascular: Diminished dorsalis pedis posterior tibial pulses atrophic skin changes suggestive of microvascular disease including but not limited to skin thinning absent digital hair growth, shiny appearance, taut. Neurologic: Absent protective and light touch proximal and sensation of bilateral feet. Dermatologic: Full-thickness wound distal tuft of the right hallux. Pre and postdebridement measurements documented nursing notes. Predebridement there is noted to be significant periwound hyperkeratoses and a stable granular base. Postdebridement wound demonstrates clean granular base with clean skin edges. No evidence of acute infection. Musculoskeletal: Hallux rigidus to bilateral lower extremities. This is a wound forming formerly. Patient had flexor tenotomy right hallux and range of motion is improved to right hallux IPJ. Debridement Note Debridement Note Post-Debridement Measurements and Additional Note: Post-Debridement Measurements/Treatment KULWINDER - Nurse 1 - General Ulcer Assessment Start: 11/22/23 10:15 Freq: Status: Active Protocol: LEILA Activity Type Activity Date Activity User E-sign Co-sign Detail Recorded Client Recorded Date Recorded By Document 11/22/23 10:17 KW Desktop 11/22/23 10:24 KW Document 11/29/23 09:47 KW Desktop 11/29/23 09:54 KW Document 12/06/23 09:50 KW Desktop 12/06/23 09:57 KW Document 12/13/23 09:51 DL Desktop 12/13/23 10:01 DL 11/22/23 11/29/23 12/06/23 10:17 09:47 09:50 WC - Today's Visit Information Type of service Follow-up Visit Follow-up Visit Follow-up Visit (Physician/ADJUNCT PROFESSOR OF VOICE (Physician/ADJUNCT PROFESSOR OF VOICE (Physician/ADJUNCT PROFESSOR OF VOICE ) ) ) Arrival Mode Ambulatory Ambulatory Ambulatory Transfer Assistance Patient Identification Verified (Name & Yes Yes Yes ) Patient Requires Transmission-Based Precautions Finger Stick Blood Sugar(mg/dl) (if indicated): Blood Sugar Height and Weight Body Mass Index (BMI) 41.8 41.8 41.8 BMI Classification Obese Obese Obese Vital Signs Temperature (97.8 F-99.1 F) 96.4 F L 96.3 F L 97.3 F L Temperature Source Temporal Temporal Temporal Pulse Rate (60-100) 71 70 75 Pulse Location Monitor Monitor Monitor Respiratory Rate (12-18) 18 18 18 Respiratory rate source Observation Observation Observation Oxygen Delivery Method Room Air Room Air Room Air Blood Pressure (90/60-120/80) 129/70 H 153/69 H 166/78 H Blood Pressure Mean (mm Hg) 89 97 107 Source Monitor Monitor Monitor Position Semi-Fowlers Semi-Fowlers Semi-Fowlers Blood Pressure Location Right Arm Left Arm Left Arm History Since Last Visit- (Skip if this is Patient's initial visit) Have you changed medications since your No No No last visit? Any new allergies or adverse reactions No No No Had a fall/change in ADL's that may No No No increase risk of falls Signs or symptoms of abuse and/or No No No neglect since last visit Have you been in the hospital since your No No No last visit? Has dressing in place as prescribed Yes Yes Yes Has compression in place as prescribed N/A N/A Yes Has offloadiing in place as prescribed Yes N/A N/A Experienced any changes in pain level or No No No management Left Footwear Regular Shoe Regular Shoe Regular Shoe Right Footwear Surgical Shoe Regular Shoe Regular Shoe with pressure relief insole Pain Scale: 0-10 Numeric Is Patient Pain Free? Yes Yes Yes 12/13/23 09:51 WC - Today's Visit Information Type of service Follow-up Visit (Physician/ADJUNCT PROFESSOR OF VOICE ) Arrival Mode Ambulatory Transfer Assistance None Patient Identification Verified (Name & Yes ) Patient Requires Transmission-Based No Precautions Finger Stick Blood Sugar(mg/dl) (if not checked indicated): Blood Sugar Stated by Patient Height and Weight Body Mass Index (BMI) 41.8 BMI Classification Obese Vital Signs Temperature (97.8 F-99.1 F) 96.5 F L Temperature Source Temporal Pulse Rate (60-100) 79 Pulse Location Monitor Respiratory Rate (12-18) 20 H Respiratory rate source Observation Oxygen Delivery Method Blood Pressure (90/60-120/80) 140/62 H Blood Pressure Mean (mm Hg) 88 Source Monitor Position Blood Pressure Location History Since Last Visit- (Skip if this is Patient's initial visit) Have you changed medications since your No last visit? Any new allergies or adverse reactions No Had a fall/change in ADL's that may No increase risk of falls Signs or symptoms of abuse and/or No neglect since last visit Have you been in the hospital since your No last visit? Has dressing in place as prescribed Yes Has compression in place as prescribed N/A Has offloadiing in place as prescribed Yes Experienced any changes in pain level or No management Left Footwear Right Footwear Pain Scale: 0-10 Numeric Is Patient Pain Free? Yes WC - Nurse 1 - General Ulcer Measurement Start: 11/22/23 10:15 Freq: Status: Active Protocol: Activity Type Activity Date Activity User E-sign Co-sign Detail Recorded Client Recorded Date Recorded By Document 11/22/23 10:17 KW Desktop 11/22/23 10:24 KW Document 11/29/23 09:47 KW Desktop 11/29/23 09:54 KW Document 12/06/23 09:50 KW Desktop 12/06/23 09:57 KW Document 12/13/23 09:51 DL Desktop 12/13/23 10:01 DL Edit Result 12/13/23 09:51 DL (1) [id number] 12/13/23 10:14 DL (1) #11 Right Hallux - Wound Comment(s) => Pt states that he had an appt with Vasc that was ordered per Dr. Morales but he cancelled this appt this morning. 11/22/23 11/29/23 12/06/23 10:17 09:47 09:50 Wound Center Nurse 1 #11 Right Hallux -Current Size (cm) - Length 0.5 0.5 0.5 -Current Size (cm) - Width 0.7 0.9 0.8 -Current Size (cm) - Depth 0.3 0.2 0.1 -Total Square Cm 0.35 0.45 0.40 -Undermining/Tunneling Yes -Undermining/Tunneling Starts (O'clock 11 ) -Undermining/Tunneling Ends (O'clock) 1 -Maximum Distance (cm) 0.1 -Exudate Amt Small None Present Small -Exudate Type Serosanguineous Serosanguineous -Wound Margin Distinct, Distinct, Distinct, Outline Outline Outline Attached Attached Attached -Granulation Amt Large (67-100%) Large (67-100%) Large (67-100%) -Granulation Quality Plover Plover Plover -Necrosis Amt Small (1-33%) -Necrotic Tissue Type Adherent Slough -Structure Exposed -Texture (Belle-wound Skin Appearance) Assessed,Callus Assessed,Callus Assessed,Callus -Moisture (Belle-wound Skin Appearance) Assessed Assessed Assessed -Color (Belle-wound Skin Appearance) Assessed Assessed Assessed -Temperature (Belle-wound Skin No Abnormality No Abnormality Appearance) (Pt Warm) (Pt Warm) -Tenderness on Palpation (Belle-wound Skin Appearance) -Ulcer Cleansing Rinsed/ Rinsed/ Rinsed/ Irrigated with Irrigated with Irrigated with Saline Saline Saline -Foul Odor after Cleansing No -Anesthetic Used 5% Lidocaine 5% Lidocaine 5% Lidocaine Gel Gel Gel -Wound Comment(s) 12/13/23 09:51 Wound Center Nurse 1 #11 Right Hallux -Current Size (cm) - Length 0.3 -Current Size (cm) - Width 0.5 -Current Size (cm) - Depth 0.2 -Total Square Cm 0.15 -Undermining/Tunneling -Undermining/Tunneling Starts (O'clock 10 ) -Undermining/Tunneling Ends (O'clock) 2 -Maximum Distance (cm) 0.2 -Exudate Amt Small -Exudate Type Sanguineous -Wound Margin Distinct, Outline Attached -Granulation Amt Small (1-33%) -Granulation Quality Red -Necrosis Amt Small (1-33%) -Necrotic Tissue Type Adherent Slough -Structure Exposed N/A -Texture (Belle-wound Skin Appearance) Callus,Scarring -Moisture (Belle-wound Skin Appearance) Dry/Scaly -Color (Belle-wound Skin Appearance) No Abnormality -Temperature (Belle-wound Skin No Abnormality Appearance) (Pt Warm) -Tenderness on Palpation (Belle-wound No Skin Appearance) -Ulcer Cleansing Soap and Water -Foul Odor after Cleansing No -Anesthetic Used 5% Lidocaine Gel -Wound Comment(s) Pt states that he had an appt with Vasc that was ordered per Dr. Morales but he cancelled this appt this morning. WC - Nurse 2 - General Ulcer CM Notes Start: 11/22/23 10:15 Freq: Status: Active Protocol: Activity Type Activity Date Activity User E-sign Co-sign Detail Recorded Client Recorded Date Recorded By Document 11/22/23 10:38 Laptop 11/22/23 10:41 Document 11/29/23 10:21 Foruforever Laptop 11/29/23 10:23 JF Document 12/06/23 10:06 JF Laptop 12/06/23 10:15 JF Document 12/13/23 10:11 MW Desktop 12/13/23 10:16 MW 11/22/23 11/29/23 12/06/23 10:38 10:21 10:06 Wound Center Nurse 2 #11 Right Hallux -Time 10:38 10:21 10:07 -Correct Patient Yes Yes Yes -Correct Side, Site, Position Yes Yes Yes -Correct Procedure Yes Yes Yes -Procedure Performed Yes Yes Yes -Type of Procedure Debridement Debridement Debridement -Clinical Debridement Subcutaneous Subcutaneous Subcutaneous -Tissue Removed Subcutaneous Subcutaneous Subcutaneous -Post Debridement (cm) - Length 0.9 0.6 1.0 -Post Debridement (cm) - Width 1.3 1.0 0.4 -Post Debridement (cm) - Depth 0.2 0.1 0.1 -Total Square (Post) (cm) 1.17 0.60 0.40 -Area of Debridement (cm) - Length 0.9 0.6 1.0 -Area of Debridement (cm) - Width 1.3 1.0 0.4 -Total Square (Area) (cm) 1.17 0.60 0.40 -Tunneling No No No -Undermining/Tunneling No No No -Circular Undermining No No No -Wound/Ulcer Outcome Not Healed Not Healed Not Healed -Ulcer Cleansing Rinsed/ Rinsed/ Rinsed/ Irrigated with Irrigated with Irrigated with Saline Saline Saline -Foul Odor after Cleansing No No No -Bioengineered Tissue No No Yes -Type of Bioengineered Tissue Epifix 18mm Disc -Expiration Date 07/20/28 -Product Lot Number [id number] -Percent Used 100 -Lot number of Saline Used [id number] -Bleeding Controlled with Pressure Pressure Pressure -Treatment Response Procedure Procedure Procedure Tolerated Well Tolerated Well Tolerated Well -Offloading Yes No Yes -Type of Offloading Surgical Shoe Surgical Shoe -Debridement - Subq, 1st 20sq cm Yes Yes No -Apply Skin Sub - 1st 25 sq cm - Feet 1 -Epifix 18mm Disc 3 Pain Scale: 0-10 Numeric Is Patient Pain Free? Yes Yes Yes 12/13/23 10:11 Wound Center Nurse 2 #11 Right Hallux -Time 10:12 -Correct Patient -Correct Side, Site, Position Yes -Correct Procedure Yes -Procedure Performed Yes -Type of Procedure Debridement -Clinical Debridement Subcutaneous -Tissue Removed Subcutaneous -Post Debridement (cm) - Length 0.9 -Post Debridement (cm) - Width 0.3 -Post Debridement (cm) - Depth 0.1 -Total Square (Post) (cm) 0.27 -Area of Debridement (cm) - Length 0.9 -Area of Debridement (cm) - Width 0.3 -Total Square (Area) (cm) 0.27 -Tunneling No -Undermining/Tunneling No -Circular Undermining No -Wound/Ulcer Outcome Not Healed -Ulcer Cleansing Rinsed/ Irrigated with Saline -Foul Odor after Cleansing No -Bioengineered Tissue Yes -Type of Bioengineered Tissue Epifix 18mm Disc -Expiration Date 07/20/28 -Product Lot Number [id number] -Percent Used 100 -Lot number of Saline Used [id number] -Bleeding Controlled with Pressure -Treatment Response Procedure Tolerated Well -Offloading No -Type of Offloading -Debridement - Subq, 1st 20sq cm No -Apply Skin Sub - 1st 25 sq cm - Feet 1 -Epifix 18mm Disc 3 Pain Scale: 0-10 Numeric Is Patient Pain Free? Yes - Nurse 3 - General Ulcer D/C NN Start: 11/22/23 10:15 Freq: Status: Active Protocol: Activity Type Activity Date Activity User E-sign Co-sign Detail Recorded Client Recorded Date Recorded By Document 11/22/23 10:47 KW Desktop 11/22/23 10:48 KW Document 11/29/23 10:30 KW Desktop 11/29/23 10:30 KW Document 12/06/23 10:20 KW Desktop 12/06/23 10:21 KW 11/22/23 11/29/23 12/06/23 10:47 10:30 10:20 Wound Care Center Nurse 3 #11 Right Hallux -Ulcer Cleansing Rinsed/ Rinsed/ Irrigated with Irrigated with Saline Saline -Primary Dressing Applied Promogran Promogran Rita Matter Rita Matter -Primary Dressing Covered/Secured with Dry Gauze, Dry Gauze & Dry Gauze & Secured with Roll Gauze, Roll Gauze, Tape Secured with Secured with Tape Tape -Promogran Rita Matter 1 1 Pain Scale: 0-10 Numeric Is Patient Pain Free? Yes Yes Yes WC - Visit Discharge Discharge Condition Stable Stable Stable Ambulatory Status Ambulatory Ambulatory Ambulatory Transportation Private Auto Private Auto Private Auto Medication Reconcilliation completed & No No No provided to patient/care provider Clinical Summary of Care Provided Yes Yes Yes Assessment/Plan Assessment/Plan (1) Non-pressure chronic ulcer of other part of right foot with fat layer exposed: CODE(S): L97.512 - Non-pressure chronic ulcer of other part of right foot with fat layer exposed PLAN: Exam performed Patient underwent flexor tenotomy in office two weeks prior, Wound improved today. Range of motion improved right hallux IPJ. Right hallux wound excisionally debrided down to including level of subcutaneous tissue of all nonviable tissue using 5 mm dermal curette and #15 blade. Pre and postdebridement measurements documented nursing notes. Patient tolerated procedure and well. No anesthesia due to neuropathy. Hemostasis obtained with light compression. Today epi fix graft was applied directly to the wound site. Entire graft used, no waste. This was an 18 mm disc. This was secured with overlying wound veil and Steri-Strips. Overlying dry sterile dressing was applied. Patient is to maintain heel weightbearing in surgical shoe during ambulation. Patient has a knee scooter that he uses to maintain nonweightbearing status throughout the day. 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 If there are any delays wound healing we will consider additional restrictions. Follow-up 1 week. (2) Type 2 diabetes mellitus with diabetic polyneuropathy: CODE(S): E11.42 - Type 2 diabetes mellitus with diabetic polyneuropathy QUALIFIERS: Diabetes mellitus middle or intermediate school principal insulin use: with middle or intermediate school principal use Qualified Code(s): E11.42 - Type 2 diabetes mellitus with diabetic polyneuropathy; Z79.4 - [facility] (current) use of insulin
== END 2023-12-18 23:59 | disposition home or self-care (01) ==
LOC: WC 09:45
PROVIDERS: Referring Provider Podiatrist; Visit Provider Podiatrist
DX: E11.621 Type 2 diabetes mellitus with foot ulcer (principal); L97.512 Non-pressure chronic ulcer of other part of right foot with fat layer exposed; M86.10 Other acute osteomyelitis, unspecified site; E11.42 Type 2 diabetes mellitus with diabetic polyneuropathy; Z79.4 Long term (current) use of insulin
CPT/HCPCS: 11042; 15275; Q4186

== ENCOUNTER 2024-01-03 09:45 | Outpatient (RCR) | payer OTHER, SELFPAY ==
[2023-12-19 00:49] VITALS: BP 140/62; PULSE 79; RESP 20; TEMP 35.8; BMI 41.8
[2023-12-20 10:04] VITALS: BP 170/79; PULSE 76; RESP 18; TEMP 35.6; BMI 41.8
--- NOTE | 2023-12-20 10:19 | PN.PCM_ITS ---
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 He has completed his 6-week oral antibiotic course under the management of infectious disease without reported side effects. He denies fever, chill, nausea, vomiting, diarrhea or other side effects since he started on antibiotics. Objective Data Objective Data Vital Signs: Vital Signs Temp Pulse Resp BP 96.1 F L 76 18 170/79 H 12/20/23 10:04 12/20/23 10:04 12/20/23 10:04 12/20/23 10:04 Weight: 124.738 kg Body Mass Index (BMI) 41.8 Physical Exam Narrative Vascular: Diminished dorsalis pedis posterior tibial pulses atrophic skin changes suggestive of microvascular disease including but not limited to skin thinning absent digital hair growth, shiny appearance, taut. Neurologic: Absent protective and light touch proximal and sensation of bilateral feet. Dermatologic: Full-thickness wound distal tuft of the right hallux. Pre and postdebridement measurements documented nursing notes. Predebridement there is noted to be significant periwound hyperkeratoses and a stable granular base. Postdebridement wound demonstrates clean granular base with clean skin edges. No evidence of acute infection. Musculoskeletal: Hallux rigidus to bilateral lower extremities. This is a wound forming formerly. Patient had flexor tenotomy right hallux and range of motion is improved to right hallux IPJ. Debridement Note Debridement Note Post-Debridement Measurements and Additional Note: Post-Debridement Measurements/Treatment - Nurse 1 - General Ulcer Assessment Start: 12/20/23 10:03 Freq: Status: Active Protocol: .LOWEXT Activity Type Activity Date Activity User E-sign Co-sign Detail Recorded Client Recorded Date Recorded By Document 12/20/23 10:04 Desktop 12/20/23 10:06 AL 12/20/23 10:04 - Today's Visit Information Type of service Follow-up Visit (Physician/INTERNATIONAL LOGISTICS MANAGER ) Arrival Mode Ambulatory Transfer Assistance None Patient Identification Verified (Name & Yes ) Patient Requires Transmission-Based No Precautions Height and Weight Body Mass Index (BMI) 41.8 BMI Classification Obese Vital Signs Temperature (97.8 F-99.1 F) 96.1 F L Temperature Source Temporal Pulse Rate (60-100) 76 Pulse Location Monitor Respiratory Rate (12-18) 18 Respiratory rate source Observation Blood Pressure (90/60-120/80) 170/79 H Blood Pressure Mean (mm Hg) 109 Source Monitor Position Semi-Fowlers Blood Pressure Location Left Arm History Since Last Visit- (Skip if this is Patient's initial visit) Have you changed medications since your No last visit? Any new allergies or adverse reactions No Had a fall/change in ADL's that may No increase risk of falls Signs or symptoms of abuse and/or No neglect since last visit Have you been in the hospital since your No last visit? Has dressing in place as prescribed Yes Has compression in place as prescribed No Has offloadiing in place as prescribed No Experienced any changes in pain level or No management Pain Scale: 0-10 Numeric Is Patient Pain Free? Yes - Nurse 1 - General Ulcer Measurement Start: 12/20/23 10:03 Freq: Status: Active Protocol: Activity Type Activity Date Activity User E-sign Co-sign Detail Recorded Client Recorded Date Recorded By Document 12/20/23 10:04 RB Desktop 12/20/23 10:06 RB 12/20/23 10:04 Wound Center Nurse 1 #11 Right Hallux -Combined with other wound No -Current Size (cm) - Length 0.5 -Current Size (cm) - Width 0.3 -Current Size (cm) - Depth 0.1 -Total Square Cm 0.15 -Photo Taken Yes -Tunneling No -Undermining/Tunneling No -Circular Undermining No -Exudate Amt Medium -Exudate Type Serosanguineous -Wound Margin Thickened -Granulation Amt Medium (34-66%) -Granulation Quality [place] -Slough/Fibrin Yes -Necrosis Amt Medium (34-66%) -Necrotic Tissue Type Adherent Slough -Structure Exposed N/A -Texture (Belle-wound Skin Appearance) Assessed,Callus -Moisture (Belle-wound Skin Appearance) Assessed -Color (Belle-wound Skin Appearance) Assessed -Temperature (Belle-wound Skin No Abnormality Appearance) (Pt Warm) -Tenderness on Palpation (Belle-wound No Skin Appearance) -Ulcer Cleansing Wound Cleanser -Foul Odor after Cleansing No -Anesthetic Used 5% Lidocaine Gel KULWINDER - Nurse 2 - General Ulcer CM Notes Start: 12/20/23 10:03 Freq: Status: Active Protocol: Activity Type Activity Date Activity User E-sign Co-sign Detail Recorded Client Recorded Date Recorded By Document 12/20/23 10:10 Laptop 12/20/23 10:19 12/20/23 10:10 Wound Center Nurse 2 -Time 10:10 -Correct Patient Yes -Correct Side, Site, Position Yes -Correct Procedure Yes -Procedure Performed Yes -Type of Procedure Debridement -Clinical Debridement Subcutaneous -Tissue Removed Subcutaneous -Post Debridement (cm) - Length 1.0 -Post Debridement (cm) - Width 0.3 -Post Debridement (cm) - Depth 0.1 -Total Square (Post) (cm) 0.30 -Area of Debridement (cm) - Length 1.0 -Area of Debridement (cm) - Width 0.3 -Total Square (Area) (cm) 0.30 -Tunneling No -Undermining/Tunneling No -Circular Undermining No -Wound/Ulcer Outcome Not Healed -Ulcer Cleansing Rinsed/ Irrigated with Saline -Foul Odor after Cleansing No -Bioengineered Tissue Yes -Type of Bioengineered Tissue Epifix 18mm Disc -Expiration Date 07/20/28 -Product Lot Number [id number] -Percent Used 100 -Lot number of Saline Used [id number] -Bleeding Controlled with Pressure -Treatment Response Procedure Tolerated Well -Offloading Yes -Type of Offloading Surgical Shoe -Debridement - Subq, 1st 20sq cm No -Apply Skin Sub - 1st 25 sq cm - Feet 1 -Epifix 18mm Disc 3 Pain Scale: 0-10 Numeric Is Patient Pain Free? Yes Assessment/Plan Assessment/Plan (1) Non-pressure chronic ulcer of other part of right foot with fat layer exposed: CODE(S): L97.512 - Non-pressure chronic ulcer of other part of right foot with fat layer exposed PLAN: Exam performed Patient underwent flexor tenotomy in office two weeks prior, Wound improved today. Range of motion improved right hallux IPJ. Right hallux wound excisionally debrided down to including level of subcutaneous tissue of all nonviable tissue using 5 mm dermal curette and #15 blade. Pre and postdebridement measurements documented nursing notes. Patient tolerated procedure and well. No anesthesia due to neuropathy. Hemostasis obtained with light compression. Today epi fix graft was applied directly to the wound site. Entire graft used, no waste. This was an 18 mm disc. This was secured with overlying wound veil and Steri-Strips. Overlying dry sterile dressing was applied. Patient is to maintain heel weightbearing in surgical shoe during ambulation. Patient has a knee scooter that he uses to maintain nonweightbearing status throughout the day. 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 If there are any delays wound healing we will consider additional restrictions. Follow-up 1 week. 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
[2023-12-27 10:10] VITALS: RESP 18; TEMP 36.6; BMI 41.8
[2023-12-27 10:18] VITALS: BP 152/90; BMI 41.8
--- NOTE | 2023-12-27 10:51 | PN.PCM_ITS ---
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 He has completed his 6-week oral antibiotic course under the management of infectious disease without reported side effects. He denies fever, chill, nausea, vomiting, diarrhea or other side effects since he started on antibiotics. Objective Data Objective Data Vital Signs: Vital Signs Temp Pulse Resp BP O2 Del Method 98 F 76 18 152/90 H Room Air 12/27/23 10:10 12/20/23 10:04 12/27/23 10:10 12/27/23 10:18 12/27/23 10:10 Oxygen Delivery Method Room Air Weight: 124.738 kg Body Mass Index (BMI) 41.8 Physical Exam Narrative Vascular: Diminished dorsalis pedis posterior tibial pulses atrophic skin changes suggestive of microvascular disease including but not limited to skin thinning absent digital hair growth, shiny appearance, taut. Neurologic: Absent protective and light touch proximal and sensation of bila teral feet. Dermatologic: Full-thickness wound distal tuft of the right hallux. Pre and postdebridement measurements documented nursing notes. Predebridement there is noted to be significant periwound hyperkeratoses and a stable granular base. Postdebridement wound demonstrates clean granular base with clean skin edges. No evidence of acute infection. Musculoskeletal: Hallux rigidus to bilateral lower extremities. This is a wound forming formerly. Patient had flexor tenotomy right hallux and range of motion is improved to right hallux IPJ. Debridement Note Debridement Note Post-Debridement Measurements and Additional Note: Post-Debridement Measurements/Treatment - Nurse 1 - General Ulcer Assessment Start: 12/20/23 10:03 Freq: Status: Active Protocol: [email or web address] Activity Type Activity Date Activity User E-sign Co-sign Detail Recorded Client Recorded Date Recorded By Document 12/20/23 10:04 RB Desktop 12/20/23 10:06 RB Document 12/27/23 10:10 MT Desktop 12/27/23 10:17 MT Document 12/27/23 10:18 MT Desktop 12/27/23 10:19 MT 12/20/23 12/27/23 12/27/23 10:04 10:10 10:18 - Today's Visit Information Type of service Follow-up Visit Follow-up Visit (Physician/HARPOON ENGAGEMENT PLANNING OPERATOR (Physician/HARPOON ENGAGEMENT PLANNING OPERATOR ) ) Arrival Mode Ambulatory Ambulatory Transfer Assistance None Accompanied by self Patient Identification Verified (Name & Yes Yes ) Patient Requires Transmission-Based No Precautions Safety Precautions Fall Prevention Finger Stick Blood Sugar(mg/dl) (if 135 indicated): Blood Sugar Stated by Patient Height and Weight Body Mass Index (BMI) 41.8 41.8 41.8 BMI Classification Obese Obese Obese Vital Signs Temperature (97.8 F-99.1 F) 96.1 F L 98 F Temperature Source Temporal Temporal Pulse Rate (60-100) 76 Pulse Location Monitor Monitor Respiratory Rate (12-18) 18 18 Respiratory rate source Observation Observation Oxygen Delivery Method Room Air Blood Pressure (90/60-120/80) 170/79 H 152/90 H Blood Pressure Mean (mm Hg) 109 110 Source Monitor Monitor Position Semi-Fowlers Sitting Blood Pressure Location Left Arm Right Forearm History Since Last Visit- (Skip if this is Patient's initial visit) Have you changed medications since your No last visit? Any new allergies or adverse reactions No Had a fall/change in ADL's that may No increase risk of falls Signs or symptoms of abuse and/or No neglect since last visit Have you been in the hospital since your No last visit? Has dressing in place as prescribed Yes Yes Has compression in place as prescribed No N/A Has offloadiing in place as prescribed No N/A Experienced any changes in pain level or No management Left Footwear Regular Shoe Right Footwear Regular Shoe Pain Scale: 0-10 Numeric Is Patient Pain Free? Yes Yes Yes - Nurse 1 - General Ulcer Measurement Start: 12/20/23 10:03 Freq: Status: Active Protocol: Activity Type Activity Date Activity User E-sign Co-sign Detail Recorded Client Recorded Date Recorded By Document 12/20/23 10:04 RB Desktop 12/20/23 10:06 RB Document 12/27/23 10:10 [place] Desktop 12/27/23 10:17 MT 12/20/23 12/27/23 10:04 10:10 Wound Center Nurse 1 #11 Right Hallux -Combined with other wound No -Current Size (cm) - Length 0.5 0.1 -Current Size (cm) - Width 0.3 0.1 -Current Size (cm) - Depth 0.1 0.1 -Total Square Cm 0.15 1 -Photo Taken Yes -Epithelialization Large 67-100% -Tunneling No -Undermining/Tunneling No -Circular Undermining No -Exudate Amt Medium Small -Exudate Type Serosanguineous Sanguineous -Wound Margin Thickened Thickened -Granulation Amt Medium (34-66%) Small (1-33%) -Granulation Quality [place] Pale,[place] -Slough/Fibrin Yes -Necrosis Amt Medium (34-66%) Large (67-100%) -Necrotic Tissue Type Adherent Slough Adherent Slough -Structure Exposed N/A -Texture (Belle-wound Skin Appearance) Assessed,Callus Assessed,Callus -Moisture (Belle-wound Skin Appearance) Assessed Assessed -Color (Belle-wound Skin Appearance) Assessed Assessed -Temperature (Belle-wound Skin No Abnormality No Abnormality Appearance) (Pt Warm) (Pt Warm) -Tenderness on Palpation (Belle-wound No No Skin Appearance) -Ulcer Cleansing Wound Cleanser Rinsed/ Irrigated with Saline -Foul Odor after Cleansing No No -Anesthetic Used 5% Lidocaine 5% Lidocaine Gel Gel WC - Nurse 2 - General Ulcer CM Notes Start: 12/20/23 10:03 Freq: Status: Active Protocol: Activity Type Activity Date Activity User E-sign Co-sign Detail Recorded Client Recorded Date Recorded By Document 12/20/23 10:10 [employer] 12/20/23 10:19 Document 12/27/23 10:37 Laptop 12/27/23 10:43 12/20/23 12/27/23 10:10 10:37 Wound Center Nurse 2 #11 Right Hallux -Time 10:10 10:37 -Correct Patient Yes Yes -Correct Side, Site, Position Yes Yes -Correct Procedure Yes Yes -Procedure Performed Yes Yes -Type of Procedure Debridement Debridement -Clinical Debridement Subcutaneous Subcutaneous -Tissue Removed Subcutaneous Subcutaneous -Post Debridement (cm) - Length 1.0 1.0 -Post Debridement (cm) - Width 0.3 0.1 -Post Debridement (cm) - Depth 0.1 0.1 -Total Square (Post) (cm) 0.30 0.10 -Area of Debridement (cm) - Length 1.0 1.0 -Area of Debridement (cm) - Width 0.3 0.1 -Total Square (Area) (cm) 0.30 0.10 -Tunneling No No -Undermining/Tunneling No No -Circular Undermining No No -Wound/Ulcer Outcome Not Healed Not Healed -Ulcer Cleansing Rinsed/ Rinsed/ Irrigated with Irrigated with Saline Saline -Foul Odor after Cleansing No No -Bioengineered Tissue Yes Yes -Type of Bioengineered Tissue Epifix 18mm Epifix 18mm Disc Disc -Expiration Date 07/20/28 07/20/28 -Product Lot Number [id number] -Percent Used 100 100 -Lot number of Saline Used [id number] -Bleeding Controlled with Pressure Pressure -Treatment Response Procedure Procedure Tolerated Well Tolerated Well -Offloading Yes Yes -Type of Offloading Surgical Shoe Surgical Shoe -Debridement - Subq, 1st 20sq cm No No -Apply Skin Sub - 1st 25 sq cm - Feet 1 1 -Epifix 18mm Disc 3 3 Pain Scale: 0-10 Numeric Is Patient Pain Free? Yes Yes - Nurse 3 - General Ulcer D/C NN Start: 12/20/23 10:03 Freq: Status: Active Protocol: Activity Type Activity Date Activity User E-sign Co-sign Detail Recorded Client Recorded Date Recorded By Document 12/20/23 10:21 Laptop 12/20/23 10:22 12/20/23 10:21 Wound Care Center Nurse 3 #11 Right Hallux -Ulcer Cleansing Rinsed/ Irrigated with Saline -Foul Odor after Cleansing No -Primary Dressing Covered/Secured with Dry Gauze, Secured with Tape Pain Scale: 0-10 Numeric Is Patient Pain Free? Yes - Visit Discharge Discharge Condition Stable Ambulatory Status Ambulatory Transportation Private Auto Medication Reconcilliation completed & Yes provided to patient/care provider Clinical Summary of Care Provided Yes Assessment/Plan Assessment/Plan (1) Non-pressure chronic ulcer of other part of right foot with fat layer exposed: CODE(S): L97.512 - Non-pressure chronic ulcer of other part of right foot with fat layer exposed PLAN: Exam performed Patient underwent flexor tenotomy in office two weeks prior, Wound improved today. Range of motion improved right hallux IPJ. Right hallux wound excisionally debrided down to including level of subcutaneous tissue of all nonviable tissue using 5 mm dermal curette and #15 blade. Pre and postdebridement measurements documented nursing notes. Patient tolerated procedure and well. No anesthesia due to neuropathy. Hemostasis obtained with light compression. Today epi fix graft was applied directly to the wound site. Entire graft used, no waste. This was an 18 mm disc. This was secured with overlying wound veil and Steri-Strips. Overlying dry sterile dressing was applied. Patient is to maintain heel weightbearing in surgical shoe during ambulation. Patient has a knee scooter that he uses to maintain nonweightbearing status throughout the day. 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 If there are any delays wound healing we will consider additional restrictions. Follow-up 1 week. 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
[2024-01-03 09:53] VITALS: BP 157/67; PULSE 69; RESP 18; TEMP 36.5; BMI 41.8
--- NOTE | 2024-01-03 10:26 | PCM.WC.PN ---
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 He has completed his 6-week oral antibiotic course under the management of infectious disease without reported side effects. He denies fever, chill, nausea, vomiting, diarrhea or other side effects since he started on antibiotics. Objective Data Objective Data Vital Signs: Vital Signs Temp Pulse Resp BP O2 Del Method 97.7 F L 69 18 157/67 H Room Air 01/03/24 09:53 01/03/24 09:53 01/03/24 09:53 01/03/24 09:53 01/03/24 09:53 Oxygen Delivery Method Room Air Weight: 124.738 kg Body Mass Index (BMI) 41.8 Physical Exam Narrative Vascular: Diminished dorsalis pedis posterior tibial pulses atrophic skin changes suggestive of microvascular disease including but not limited to skin thinning absent digital hair growth, shiny appearance, taut. Neurologic: Absent protective and light touch proximal and sensation of bilateral feet. Dermatologic: Wound distal tuft right hallux healed. Musculoskeletal: Hallux rigidus to bilateral lower extremities. This is a wound forming formerly. Patient had flexor tenotomy right hallux and range of motion is improved to right hallux IPJ. Debridement Note Debridement Note Post-Debridement Measurements and Additional Note: Post-Debridement Measurements/Treatment - Nurse 1 - General Ulcer Assessment Start: 12/20/23 10:03 Freq: Status: Active Protocol: [email or web address] Activity Type Activity Date Activity User E-sign Co-sign Detail Recorded Client Recorded Date Recorded By Document 12/20/23 10:04 RB Desktop 12/20/23 10:06 RB Document 12/27/23 10:10 MT Desktop 12/27/23 10:17 MT Document 12/27/23 10:18 MT Desktop 12/27/23 10:19 MT Document 01/03/24 09:53 KW Desktop 01/03/24 10:02 KW 12/20/23 12/27/23 12/27/23 10:04 10:10 10:18 - Today's Visit Information Type of service Follow-up Visit Follow-up Visit (Physician/BLOOD BANK TECHNICIAN (Physician/BLOOD BANK TECHNICIAN ) ) Arrival Mode Ambulatory Ambulatory Transfer Assistance None Accompanied by self Patient Identification Verified (Name & Yes Yes ) Patient Requires Transmission-Based No Precautions Safety Precautions Fall Prevention Finger Stick Blood Sugar(mg/dl) (if 135 indicated): Blood Sugar Stated by Patient Height and Weight Body Mass Index (BMI) 41.8 41.8 41.8 BMI Classification Obese Obese Obese Vital Signs Temperature (97.8 F-99.1 F) 96.1 F L 98 F Temperature Source Temporal Temporal Pulse Rate (60-100) 76 Pulse Location Monitor Monitor Respiratory Rate (12-18) 18 18 Respiratory rate source Observation Observation Oxygen Delivery Method Room Air Blood Pressure (90/60-120/80) 170/79 H 152/90 H Blood Pressure Mean (mm Hg) 109 110 Source Monitor Monitor Position Semi-Fowlers Sitting Blood Pressure Location Left Arm Right Forearm History Since Last Visit- (Skip if this is Patient's initial visit) Have you changed medications since your No last visit? Any new allergies or adverse reactions No Had a fall/change in ADL's that may No increase risk of falls Signs or symptoms of abuse and/or No neglect since last visit Have you been in the hospital since your No last visit? Has dressing in place as prescribed Yes Yes Has compression in place as prescribed No N/A Has offloadiing in place as prescribed No N/A Experienced any changes in pain level or No management Left Footwear Regular Shoe Right Footwear Regular Shoe Pain Scale: 0-10 Numeric Is Patient Pain Free? Yes Yes Yes 01/03/24 09:53 WC - Today's Visit Information Type of service Follow-up Visit (Physician/BLOOD BANK TECHNICIAN ) Arrival Mode Ambulatory Transfer Assistance Accompanied by Patient Identification Verified (Name & Yes ) Patient Requires Transmission-Based Precautions Safety Precautions Finger Stick Blood Sugar(mg/dl) (if 136 indicated): Blood Sugar Stated by Patient Height and Weight Body Mass Index (BMI) 41.8 BMI Classification Obese Vital Signs Temperature (97.8 F-99.1 F) 97.7 F L Temperature Source Temporal Pulse Rate (60-100) 69 Pulse Location Monitor Respiratory Rate (12-18) 18 Respiratory rate source Observation Oxygen Delivery Method Room Air Blood Pressure (90/60-120/80) 157/67 H Blood Pressure Mean (mm Hg) 97 Source Monitor Position Semi-Fowlers Blood Pressure Location Left Arm History Since Last Visit- (Skip if this is Patient's initial visit) Have you changed medications since your No last visit? Any new allergies or adverse reactions No Had a fall/change in ADL's that may No increase risk of falls Signs or symptoms of abuse and/or No neglect since last visit Have you been in the hospital since your No last visit? Has dressing in place as prescribed Yes Has compression in place as prescribed No Has offloadiing in place as prescribed N/A Experienced any changes in pain level or No management Left Footwear Regular Shoe Right Footwear Regular Shoe Pain Scale: 0-10 Numeric Is Patient Pain Free? Yes WC - Nurse 1 - General Ulcer Measurement Start: 12/20/23 10:03 Freq: Status: Active Protocol: Activity Type Activity Date Activity User E-sign Co-sign Detail Recorded Client Recorded Date Recorded By Document 12/20/23 10:04 RB Desktop 12/20/23 10:06 RB Document 12/27/23 10:10 MT [facility] [email or web address] 12/27/23 10:17 MT Document 01/03/24 09:53 KW Desktop 01/03/24 10:02 KW 12/20/23 12/27/23 01/03/24 10:04 10:10 09:53 Wound Center Nurse 1 #11 Right Hallux -Combined with other wound No -Current Size (cm) - Length 0.5 0.1 0.1 -Current Size (cm) - Width 0.3 0.1 0.1 -Current Size (cm) - Depth 0.1 0.1 0.1 -Total Square Cm 0.15 1 0.01 -Date of Last Picture (Recall this 01/03/24 field) -Photo Taken Yes Yes -Epithelialization Large 67-100% -Tunneling No -Undermining/Tunneling No -Circular Undermining No -Exudate Amt Medium Small -Exudate Type Serosanguineous Sanguineous -Wound Margin Thickened Thickened -Granulation Amt Medium (34-66%) Small (1-33%) -Granulation Quality [place] Pale,[place] -Slough/Fibrin Yes -Necrosis Amt Medium (34-66%) Large (67-100%) -Necrotic Tissue Type Adherent Slough Adherent Slough -Structure Exposed N/A -Texture (Belle-wound Skin Appearance) Assessed,Callus Assessed,Callus Assessed -Moisture (Belle-wound Skin Appearance) Assessed Assessed Assessed -Color (Belle-wound Skin Appearance) Assessed Assessed Assessed -Temperature (Belle-wound Skin No Abnormality No Abnormality No Abnormality Appearance) (Pt Warm) (Pt Warm) (Pt Warm) -Tenderness on Palpation (Belle-wound No No No Skin Appearance) -Ulcer Cleansing Wound Cleanser Rinsed/ Rinsed/ Irrigated with Irrigated with Saline Saline -Foul Odor after Cleansing No No No -Anesthetic Used 5% Lidocaine 5% Lidocaine Gel Gel -Wound Comment(s) closed. WC - Nurse 2 - General Ulcer CM Notes Start: 12/20/23 10:03 Freq: Status: Active Protocol: Activity Type Activity Date Activity User E-sign Co-sign Detail Recorded Client Recorded Date Recorded By Document 12/20/23 10:10 [employer] Laptop 12/20/23 10:19 Document 12/27/23 10:37 Laptop 12/27/23 10:43 Document 01/03/24 10:10 [employer] Laptop 01/03/24 10:12 12/20/23 12/27/23 01/03/24 10:10 10:37 10:10 Wound Center Nurse 2 #11 Right Hallux -Time 10:10 10:37 -Correct Patient Yes Yes No -Correct Side, Site, Position Yes Yes No -Correct Procedure Yes Yes No -Procedure Performed Yes Yes No -Type of Procedure Debridement Debridement -Clinical Debridement Subcutaneous Subcutaneous -Tissue Removed Subcutaneous Subcutaneous -Post Debridement (cm) - Length 1.0 1.0 0 -Post Debridement (cm) - Width 0.3 0.1 0 -Post Debridement (cm) - Depth 0.1 0.1 0 -Total Square (Post) (cm) 0.30 0.10 0 -Area of Debridement (cm) - Length 1.0 1.0 0 -Area of Debridement (cm) - Width 0.3 0.1 0 -Total Square (Area) (cm) 0.30 0.10 0 -Tunneling No No -Undermining/Tunneling No No -Circular Undermining No No -Wound/Ulcer Outcome Not Healed Not Healed Healed- Epithelialized -Ulcer Cleansing Rinsed/ Rinsed/ Irrigated with Irrigated with Saline Saline -Foul Odor after Cleansing No No -Bioengineered Tissue Yes Yes -Type of Bioengineered Tissue Epifix 18mm Epifix 18mm Disc Disc -Expiration Date 07/20/28 07/20/28 -Product Lot Number [id number] -Percent Used 100 100 -Lot number of Saline Used [id number] -Bleeding Controlled with Pressure Pressure -Treatment Response Procedure Procedure Tolerated Well Tolerated Well -Offloading Yes Yes -Type of Offloading Surgical Shoe Surgical Shoe -Debridement - Subq, 1st 20sq cm No No -Apply Skin Sub - 1st 25 sq cm - Feet 1 1 -Epifix 18mm Disc 3 3 Pain Scale: 0-10 Numeric Is Patient Pain Free? Yes Yes Yes - Nurse 3 - General Ulcer D/C NN Start: 12/20/23 10:03 Freq: Status: Active Protocol: Activity Type Activity Date Activity User E-sign Co-sign Detail Recorded Client Recorded Date Recorded By Document 12/20/23 10:21 Laptop 12/20/23 10:22 Document 12/27/23 11:02 [id number] 12/27/23 11:03 Document 01/03/24 10:15 Laptop 01/03/24 10:15 12/20/23 12/27/23 01/03/24 10:21 11:02 10:15 Wound Care Center Nurse 3 #11 Right Hallux -Ulcer Cleansing Rinsed/ Rinsed/ Irrigated with Irrigated with Saline Saline -Foul Odor after Cleansing No -Primary Dressing Covered/Secured with Dry Gauze, Dry Gauze & Secured with Roll Gauze, Tape Secured with Tape Pain Scale: 0-10 Numeric Is Patient Pain Free? Yes Yes Yes - Visit Discharge Discharge Condition Stable Stable Stable Ambulatory Status Ambulatory Ambulatory Ambulatory Transportation Private Auto Private Auto Private Auto Medication Reconcilliation completed & Yes Yes Yes provided to patient/care provider Clinical Summary of Care Provided Yes Yes Yes Notes: Patient healed and discharged. Assessment/Plan Assessment/Plan (1) Non-pressure chronic ulcer of other part of right foot with fat layer exposed: CODE(S): L97.512 - Non-pressure chronic ulcer of other part of right foot with fat layer exposed PLAN: Exam performed Right hallux wound healed. Return to daily foot checks ambulation DM shoe gear. Will plan for follow-up with diabetic foot check and new shoe order in next 2 to 3 weeks. 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
== END 2024-01-17 23:59 | disposition home or self-care (01) ==
LOC: WC 09:45
PROVIDERS: Referring Provider Podiatrist; Visit Provider Podiatrist
DX: L97.512 Non-pressure chronic ulcer of other part of right foot with fat layer exposed (principal); E11.42 Type 2 diabetes mellitus with diabetic polyneuropathy; Z79.4 Long term (current) use of insulin
CPT/HCPCS: 15275; 99213; Q4186; G0463

== ENCOUNTER → 2024-04-16 | Outpatient (CLI) | payer OTHER, SELFPAY | END | disposition home or self-care (01) | PROVIDERS: Referring Provider Podiatrist; Visit Provider Podiatrist | DX: L97.512 Non-pressure chronic ulcer of other part of right foot with fat layer exposed (principal) | CPT/HCPCS: 87070; 87075; 87077; 87186; 87205 ==

== ENCOUNTER 2024-05-07 11:07 | Inpatient (IN) | payer OTHER, SELFPAY ==
[2024-05-07] VITALS (9 sets, daily range): BP systolic 117–159; BP diastolic 70–101; PULSE 65–81; RESP 12–18; TEMP 36.1–36.7; O2SAT 95–100; BMI 39.4; BMI 39.1
--- NOTE | 2024-05-07 11:44 | RAD_ITS ---
STUDY: X-RAY - RIGHT FOOT CLINICAL: Male, 63 years old. Diabetic foot infection -- exposed third toe bone. TECHNIQUE: 3 views of the right foot. COMPARISON: Right foot radiographs dated 10/30/2023. FINDINGS: Again seen is a flatfoot deformity. There is unchanged degenerative arthrosis in the midfoot. 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 Normal remainder of the metatarsi. There is new lucency and irregularity of the distal phalanx of the second toe, concerning for acute osteomyelitis. There is unchanged irregularity of the tuft of the first digit. Normal metatarsophalangeal joint of the great toe. Normal tibial and fibular sesamoid bones. Normal interphalangeal joint of the great toe. Normal second through fourth metatarsophalangeal joints. Normal interphalangeal joints and phalanges of third and fourth toes. RAD/Foot min 3 Views IMPRESSION: New lucency and irregularity of the distal phalanx of the second toe, concerning for acute osteomyelitis. Unchanged irregularity of the tuft of the first digit. Electronically Signed: Quentin Thomason MD at 12:14 EDT ,
--- NOTE | 2024-05-07 11:45 | EDS_ITS ---
HPI History of Present Illness Chief Complaint: Abscess Informant: patient, spouse/S.O. and family Narrative Narrative: 63-year-old male history of diabetes and diabetic neuropathy presenting to the emergency room with worsening infection of the right toe and foot. Patient states that for the past several weeks he has had a blister and skin issues of the second toe on the right foot. He has had prior fifth toe amputation. He sees [facility]. He has been taking Keflex and ciprofloxacin prescribed by Dr. Morales. He states about 3 days ago he developed the redness onto the foot worsening blackness of the toe and now he states that the toe skin has opened up and he has exposed bone. No reported fevers. [facility] Medical History Atherosclerotic heart disease of [place] coronary artery without angina pectoris CAD (coronary artery disease) Cardiomyopathy Heart failure Diabetes Morbid obesity Ventral incisional hernia without obstruction or gangrene Foot osteomyelitis, right Gangrene Chronic ulcer of right foot with fat layer exposed Cellulitis of right foot Type 2 diabetes mellitus with diabetic polyneuropathy Chronic ulcer of right foot with necrosis of bone Osteomyelitis Non-pressure chronic ulcer of right heel and midfoot with bone involvement without evidence of necrosis Chronic ulcer of left foot with fat layer exposed PVD (peripheral vascular disease) Delayed wound healing Tobacco use Obesity (BMI 30-39.9) Home Medications ?Medication ?Instructions ?Recorded ?Last Taken ?Type insulin aspart U-100 100 unit/mL 25 unit subcut .COMPLEX 07/07/21 Unknown History (3 mL) subcutaneous pen insulin degludec 100 unit/mL 75 unit subcut BID Check with 12/24/21 Unknown History subcutaneous solution primary doctor glimepiride 2 mg tablet 2 mg PO DAILY 01/03/23 Unknown History sacubitril 49 mg-valsartan 51 mg 1 tab PO BID #180 tabs 04/12/23 Unknown Rx tablet (Entresto) carvedilol 6.25 mg tablet 6.25 mg PO BID #180 tabs 11/08/23 Unknown Rx empagliflozin 25 mg tablet 25 mg PO DAILY #90 tabs 11/08/23 Unknown Rx (Jardiance) furosemide 40 mg tablet (Lasix) 20 mg (1/2 x 40 mg) PO DAILY #45 11/08/23 Unknown Rx tabs metformin 500 mg tablet 1,000 mg PO BID 11/08/23 Unknown History spironolactone 25 mg tablet 12.5 mg (1/2 x 25 mg) PO DAILY #45 11/08/23 Unknown Rx tabs trazodone 50 mg tablet 50 mg PO DAILY 11/08/23 Unknown History Allergy/AdvReac Type Severity Reaction Status Date / Time perflutren (From [facility]) Allergy Intermediate Severe Verified 05/07/24 11:10 back and hip pain Family History Mother Colon cancer Grandmother Diabetes Surgical History History of left heart catheterization (LHC) (~06/18/21) Status post amputation of toe S/P cataract extraction S/P laparoscopic cholecystectomy Social History Smoking Status: Former smoker how long ago did patient quit smoking: Used to smoke occasional cigar second hand exposure: Yes alcohol intake: current alcohol intake frequency: a few times a month substance use type: does not use caffeine: Yes Type: coffee and tea ROS ROS ED Constitutional Constitutional ED: Denies chills or weight loss Eyes Eyes: Denies change in vision or diplopia ENT ENT ED: Denies ear pain, rhinorrhea or sore throat Cardiovascular Cardiovascular: Denies chest pain, orthopnea, palpitations or racing heartbeat Respiratory/Chest Respiratory/Chest: Denies cough, dyspnea or orthopnea Gastrointestinal Gastrointestinal: Denies abdominal pain, diarrhea, nausea or vomiting Genitourinary Genitourinary ED: Denies dysuria, hematuria or urinary frequency Musculoskeletal Musculoskeletal: Denies arthralgias or myalgias Integumentary Reports other Details: See history of present illness ; Denies abscess or rash Neurologic Neurologic: Denies headache(s) or weakness Psychiatric Psychiatric: Denies anxiety, depression, suicidal ideation or suicidal thoughts Endocrine Endocrinology: Denies polydipsia, polyphagia or polyuria Allergic/Immunologic Allergic/Immunologic ED: Denies mouth swelling, tongue swelling or urticaria EXAM Physical Exam Narrative Exam Narrative: As I enter her room there is an obvious smell of infected/decaying flesh Const Vital Signs: 05/07/24 11:08 05/07/24 11:09 05/07/24 12:09 Temperature 97.8 F 97 F L 97 F L Temperature Source Temporal Temporal Temporal Pulse Rate 81 71 70 Respiratory Rate 16 14 12 Blood Pressure 117/77 126/70 H 120/101 H Blood Pressure Mean 90 88 107 Blood Pressure Source Blood Pressure Position Pulse Ox 99 95 98 Oxygen Delivery Method Room Air Room Air Room Air 05/07/24 13:00 05/07/24 13:46 Temperature 97.3 F L 98 F Temperature Source Temporal Temporal Pulse Rate 81 65 Respiratory Rate 14 14 Blood Pressure 138/79 H 147/82 H Blood Pressure Mean 98 103 Blood Pressure Source Monitor Blood Pressure Position Semi-Fowlers Pulse Ox 98 98 Oxygen Delivery Method Room Air Room Air Positive well nourished, well developed and obese General Appearance ED: well developed Nutritional Appearance: obese HEENT Reports normocephalic, head/scalp atraumatic and moist mucous membranes Eyes PERRL and EOMs intact bilaterally Neck no lymphadenopathy, supple and no JVD Resp normal respiratory effort and clear to auscultation bilaterally Cardio regular rate, regular rhythm and no murmurs GI normal to inspection, nondistended, normoactive bowel sounds and non-tender Palpation: soft Back/Spine no CVA tenderness and normal ROM Extremity Extremity Narrative: The left foot demonstrates erythema up onto the midfoot on the dorsum. The second digit is black with exposed bone at the tip. The black decaying skin appears to be opening up on the plantar surface. There is irritation of the skin of the adjacent toes. Chronic decreased sensation General Extremety ED: Negative for edema General Extremity: Negative for edema Neuro oriented x3 and CN's II-XII intact bilaterally Sensorium / Orientation: alert Motor Exam: strength 5/5 throughout Psych mental status grossly normal Mood & Affect: Negative for depressed or tearful Skin no rashes or lesions noted and no wounds MDM MDM MDM Narrative Medical decision making narrative: Differential diagnosis includes osteomyelitis cellulitis gas gangrene dehydration sepsis electrolyte abnormalities liver and renal dysfunction White count 7.1 with a hemoglobin 15.3 platelet count of 219 normal coags lactic acid normal at 1.1 creatinine 1.04 with a BUN of 30 wound culture was obtained as well as MRSA PCR which was negative. I did review his prior wound culture from the end of March. Blood cultures obtained patient received vancomycin and Zosyn. My independent interpretation of the plain films of the foot is osteomyelitis of the second toe. Case was discussed with podiatry and discussed with the hospitalist. Replanted on admission. History & Record Review Discussion w/independent historian: Patient and Family Additional record(s) reviewed:: Prior inpatient record, Prior outpatient record, Prior ED visit and Prior labs Lab Data Attestation: I reviewed the patient's lab results. Labs: Laboratory Results - last 24 hr 05/07/24 05/07/24 11:56 12:13 WBC 7.1 RBC 5.16 Hgb 15.3 Hct 48.2 MCV 93.4 MCH 29.7 MCHC 31.7 L RDW Std Deviation 44.7 H RDW Coeff of Kylee 13.0 Plt Count 219 MPV 9.6 Immature Gran % (Auto) 0.600 Neut % (Auto) 68.9 Lymph % (Auto) 19.9 Mccracken % (Auto) 7.9 Eos % (Auto) 2.0 Baso % (Auto) 0.7 Absolute Neuts (auto) 4.9 Absolute Lymphs (auto) 1.41 Nucleated RBC % 0 PT 14.9 INR 1.2 APTT 33.8 Sodium 136 Potassium 4.2 Chloride 105 Carbon Dioxide 24.0 Anion Gap 7 BUN 30 H Creatinine 1.04 Estim Creat Clear Calc 92.91 Est GFR (MDRD) Af Amer 93 Est GFR (MDRD) Non-Af 77 BUN/Creatinine Ratio 28.8 H Glucose 185 H Lactic Acid 1.1 Calcium 9.4 Total Bilirubin 0.50 Direct Bilirubin 0.17 AST 16 ALT 16 Alkaline Phosphatase 96 Total Protein 7.6 Albumin 3.2 Globulin 4.4 H S.aureus Protein A PCR NEGATIVE MRSA (PCR) Negative Radiography Diagnostic Testing: Clinical Impression(s) from Imaging Studies Foot X-Ray 05/07/24 11:44 IMPRESSION: New lucency and irregularity of the distal phalanx of the second toe, concerning for acute osteomyelitis. Unchanged irregularity of the tuft of the first digit. Electronically Signed: Quentin Thomason MD at 12:14 EDT , Management Discussion w/another healthcare provider: Hospitalist (Deondre) and Outside Property Agent (Fito (Podiatry)) Discharge Plan Triage Chief Complaint: Abscess ED Provider: Murtaza Fuller Dx/Rx/DC Orders Clinical Impression: Osteomyelitis of toe, Diabetic foot infection Prescriptions: No Action metformin 500 mg tablet 1,000 mg PO BID glimepiride 2 mg tablet 2 mg PO DAILY trazodone 50 mg tablet 50 mg PO DAILY spironolactone 25 mg tablet 12.5 mg PO DAILY Qty: 45 3RF furosemide [Lasix] 40 mg tablet 20 mg PO DAILY Qty: 45 3RF carvedilol 6.25 mg tablet 6.25 mg PO BID Qty: 180 3RF Rx Instructions: must administer with a meal/food Jardiance 25 mg tablet 25 mg PO DAILY Qty: 90 3RF insulin aspart U-100 100 unit/mL (3 mL) insulin pen 25 unit SC .COMPLEX Rx Instructions: 25 units subcut ordered TID, usually BID; insulin degludec 100 unit/mL solution 75 unit subcut BID Entresto 49-51 mg tablet 1 tab PO BID Qty: 180 3RF Primary Care Provider: Care Physician,No Primary Referrals: Care Physician,No Primary [Primary Care Provider] - Print Language: Togolese Disposition Disposition: Acute Care Hospital
[2024-05-07 12:26] LABS: Absolute Lymphocyte Count 1.41 X10^3/uL (0.83-4.51); Absolute Neutrophil Count 4.9 X10^3/uL (2.0-7.7); Basophil# 0.05 X10^3/uL; Basophil% 0.7 % (0-1); Eosinophil# 0.14 X10^3/uL; Hematocrit 48.2 % (40-54); Hemoglobin 15.3 g/dL (13.0-16.5); Lymphocyte # 1.41 X10^3/ul (0.83-4.51); Lymphocyte % 19.9 % (19-41); Mean Corp Hgb Conc 31.7 g/dL (32-36); Mean Corpuscular Hgb 29.7 pg (27.0-32.0); Mean Corpuscular Volume 93.4 fL (80-94); Mean Platelet Vol. 9.6 fl (6.2-12.0); Monocyte# 0.56 X10^3/uL; Monocyte% 7.9 % (0-10); NRBC Flagged by Analyzer 0 % (0-5); Neutrophil # 4.87 X10^3/uL (2.7-7.7); Neutrophil % 68.9 % (47-70); Platelet Count 219 K/mm3 (150-450); RBC Distribution Width SD 44.7 fl (35.1-43.9); Red Blood Count 5.16 M/mm3 (4.6-6.2); White Blood Count 7.1 K/mm3 (4.4-11.0)
[2024-05-07 12:34] LABS: International Normalized Ratio 1.2; Partial Thromboplast Time 33.8 Seconds (24.1-36.2); Prothrombin Time (Protime)PT. 14.9 SECONDS (11.7-14.9)
[2024-05-07] MEDS: Piperacil/Tazobactam 4.5 GM in 0.9% Normal Saline (100mL MB+) 100 ML IV (12:55)
[2024-05-07 13:00] LABS: Lactic Acid 1.1 mmol/L (0.4-1.9)
--- NOTE | 2024-05-07 13:13 | ED.RN ---
CALLED PHARMACY AT 1313 REGARDING VANC. THEY ARE LOOKING FOR THE ORDER/MED.
[2024-05-07 13:15] LABS: AST(SGOT) 16 U/L (15-37); Alanine Aminotransfer ALT/SGPT 16 U/L (16-61); Albumin, Serum 3.2 g/dL (3.2-5.0); Alkaline Phosphatase 96 U/L (45-117); Anion Gap 7 (5-15); BUN 30 mg/dL (7-18); BUN/Creat Ratio 28.8 RATIO (10-20); Bilirubin, Direct 0.17 mg/dL (0.00-0.30); Calcium,Total 9.4 mg/dL (8.5-10.1); Chloride 105 mmol/L (98-107); Creatinine, Serum 1.04 mg/dL (0.70-1.30); EST Glomerular Filtration Rate 77 mL/min (>60); Est Glom Filt Rate - Afr Amer 93 mL/min (>60); Estimated Creatinine Clearance 92.91 ml/min; Globulin 4.4 g/dL (2.2-4.2); Glucose 185 mg/dL (74-106); Potassium 4.2 mmol/L (3.5-5.1); Protein, Total 7.6 g/dL (6.4-8.2); Sodium Level 136 mmol/L (136-145)
[2024-05-07] MEDS: Vancomycin HCl 2,000 MG in 0.9% Normal Saline (500mL Bag) 500 ML 250 MG IV (13:22)
[2024-05-07] MEDS: 0.9% Normal Saline (250mL Bag) 250 ML 15 ML IV (13:44)
[2024-05-07 13:51] LABS: M R Staph aureus DNA By PCR Negative (Negative)
[2024-05-07 13:52] LABS: Probe Check PASS; Staph aureus DNA By PCR NEGATIVE (Negative)
[2024-05-07 15:03] LABS: Magnesium 2.5 mg/dL (1.6-2.6)
--- NOTE | 2024-05-07 16:15 | HP.PCM.HOS_ITS ---
HPI - General General Date of Admission: 05/07/24 Date of Service: 05/07/24 Chief Complaint: Right second toe ulcer worsening for 3 weeks despite oral antibiotic HPI Narrative OLY SMITH, is a 63 M with history of diabetes mellitus type 2 complicated with neuropathy came to ED for worsening of right second toe ulcer for 3 weeks. Patient showed me the picture of toe ulcer about 3 weeks which was superficial looked like blood blister but gotten worse which now looks more black in color, necrosis with surrounding cellulitis of right foot. Scant discharge but not significant. Patient denies any fever or chills. In ED, patient had x-ray which is individually reviewed and shows bony destruction of right second distal phalanx. Poured Concrete Wall Technician on-call Dr. Payton is being consulted and patient further admitted. Patient was given 1 dose of IV vancomycin and Zosyn. 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 Osteomyelitis Non-pressure chronic ulcer of right heel and midfoot with bone involvement without evidence of necrosis Chronic ulcer of left foot with fat layer exposed PVD (peripheral vascular disease) Delayed wound healing Tobacco use Obesity (BMI 30-39.9) Home Medications ?Medication ?Instructions ?Recorded ?Last Taken ?Type insulin aspart U-100 100 unit/mL 25 unit subcut .COMPLEX 07/07/21 Unknown History (3 mL) subcutaneous pen insulin degludec 100 unit/mL 75 unit subcut BID Check with 12/24/21 Unknown History subcutaneous solution primary doctor glimepiride 2 mg tablet 2 mg PO DAILY 01/03/23 Unknown History sacubitril 49 mg-valsartan 51 mg 1 tab PO BID #180 tabs 04/12/23 Unknown Rx tablet (Entresto) carvedilol 6.25 mg tablet 6.25 mg PO BID #180 tabs 11/08/23 Unknown Rx empagliflozin 25 mg tablet 25 mg PO DAILY #90 tabs 11/08/23 Unknown Rx (Jardiance) furosemide 40 mg tablet (Lasix) 20 mg (1/2 x 40 mg) PO DAILY #45 11/08/23 Unknown Rx tabs metformin 500 mg tablet 1,000 mg PO BID 11/08/23 Unknown History spironolactone 25 mg tablet 12.5 mg (1/2 x 25 mg) PO DAILY #45 11/08/23 Unknown Rx tabs trazodone 50 mg tablet 50 mg PO DAILY 11/08/23 Unknown History cephalexin 250 mg capsule 750 mg PO BID infection 05/07/24 05/07/24 History ciprofloxacin HCl 750 mg tablet 750 mg PO BID infection 05/07/24 05/07/24 History insulin degludec 200 unit/mL (3 72 unit subcut BID diabetes 05/07/24 Unknown History mL) subcutaneous pen (Tresiba FlexTouch U-200 insulin) sennosides 8.6 mg tablet (Senokot) 8.6 mg PO DAILY PRN consti 05/07/24 Unknown History Allergy/AdvReac Type Severity Reaction Status Date / Time perflutren (From [facility]) Allergy Intermediate Severe Verified 05/07/24 11:10 back and hip pain Family History Mother Colon cancer Grandmother Diabetes Surgical History History of left heart catheterization (LHC) (~06/18/21) Status post amputation of toe S/P cataract extraction S/P laparoscopic cholecystectomy Social History Smoking Status: Former smoker how long ago did patient quit smoking: Used to smoke occasional cigar second hand exposure: Yes alcohol intake: current alcohol intake frequency: a few times a month substance use type: does not use caffeine: Yes Type: coffee and tea ROS ROS Narrative Constitutional: Reports no acute fatigue and weakness. No fever. HEENT: Reports systems reviewed and no addt'l complaints, except as documented Respiratory/Chest: No acute shortness of breath or respiratory distress or wheezing. CVS: History of CAD and follows [facility] No acute chest pain or shortness of breath. Gastrointestinal: Denies coffee ground emesis, hematemesis or vomiting Genitourinary: Denies burning urination or new urinary tract symptoms Musculoskeletal: Denies acute joint pain or limited range of motion. Right second toe ulcer Neurologic: Denies seizure-like symptoms. skin: As described in HPI Endocrinology: DM type II, for 30 years reports systems reviewed and no addt'l complaints, except as documented Hematologic/Lymphatic: Reports systems reviewed and no addt'l complaints, except as documented Rest 14 ROS are negative except as mentioned in HPI Vital Signs Vital Signs Vital Signs: 05/07/24 11:08 05/07/24 11:09 05/07/24 12:09 Temperature 97.8 F 97 F L 97 F L Temperature Source Temporal Temporal Temporal Pulse Rate 81 71 70 Respiratory Rate 16 14 12 Blood Pressure 117/77 126/70 H 120/101 H Blood Pressure Mean 90 88 107 Blood Pressure Source Blood Pressure Position Blood Pressure Location Pulse Ox 99 95 98 Oxygen Delivery Method Room Air Room Air Room Air 05/07/24 13:00 05/07/24 13:46 05/07/24 14:00 Temperature 97.3 F L 98 F 98 F Temperature Source Temporal Temporal Temporal Pulse Rate 81 65 68 Respiratory Rate 14 14 17 Blood Pressure 138/79 H 147/82 H 147/82 H Blood Pressure Mean 98 103 103 Blood Pressure Source Monitor Blood Pressure Position Semi-Fowlers Blood Pressure Location Pulse Ox 98 98 97 Oxygen Delivery Method Room Air Room Air Room Air 05/07/24 15:35 05/07/24 16:08 Temperature 97.7 F L Temperature Source Temporal Pulse Rate 79 67 Respiratory Rate 18 18 Blood Pressure 159/89 H Blood Pressure Mean 112 Blood Pressure Source Monitor Blood Pressure Position Semi-Fowlers Blood Pressure Location Right Arm Pulse Ox 95 100 Oxygen Delivery Method Room Air Room Air Weight Weight: 257 lb 4.8 oz Body Mass Index (BMI) 39.1 Physical Exam Narrative General: Alert, Oriented x3, Cooperative, obesity grade 2 BMI 39.1 kg/m? HEENT: Atraumatic, PERRLA, EOMI, Normocephalic Oral: Oral mucosa moist no Gingival or Mucosal Lesions/ Ulcerations Neck: Supple, No JVD, Negative Carotid Bruits Chest wall/Lungs: Air entry diminished in bilateral lung bases. No crepitation/rhonchi Cardiovascular: Regular rate, Regular Rhythm, Normal S1, Normal S2, No M/G/R Abdomen: Bowel Sounds Present, Soft, Non Tender, Non-Distended : No dysuria. No renal angle tenderness. No suprapubic tenderness. Extremities: No edema, Capillary Refill Less than 3 Seconds Skin: Right second toe ulcer moist, black, necrosed ulcer with surrounding contiguous right foot erythematous, mildly edematous and tender, consistent with cellulitis Musculoskeletal: No Tenderness to Palpation of Joints or Extremities. Old right fifth metatarsal amputation, well-healed. Surgical scar of right great toe, plantar aspect Neurological: Cranial nerves II-XII grossly intact, DTR 2+/4. Chronic neuropathy, loss of position sense, to point discrimination and fine touch in right foot Psych/Mental Status: Flat affect. Results Lab / Micro Data 05/07/24 12:13 05/07/24 12:13 Labs: Laboratory Results - last 24 hr 05/07/24 11:56: S.aureus Protein A PCR NEGATIVE, MRSA (PCR) Negative 05/07/24 12:13: WBC 7.1, RBC 5.16, Hgb 15.3, Hct 48.2, MCV 93.4, MCH 29.7, MCHC 31.7 L, RDW Std Deviation 44.7 H, RDW Coeff of Kylee 13.0, Plt Count 219, MPV 9.6, Immature Gran % (Auto) 0.600, Neut % (Auto) 68.9, Lymph % (Auto) 19.9, Stewart % (Auto) 7.9, Eos % (Auto) 2.0, Baso % (Auto) 0.7, Absolute Neuts (auto) 4.9, Absolute Lymphs (auto) 1.41, Nucleated RBC % 0, PT 14.9, INR 1.2, APTT 33.8, Sodium 136, Potassium 4.2, Chloride 105, Carbon Dioxide 24.0, Anion Gap 7, BUN 30 H, Creatinine 1.04, Estim Creat Clear Calc 92.91, Est GFR (MDRD) Af Amer 93, Est GFR (MDRD) Non-Af 77, BUN/Creatinine Ratio 28.8 H, Glucose 185 H, Lactic Acid 1.1, Calcium 9.4, Magnesium 2.5, Total Bilirubin 0.50, Direct Bilirubin 0.17, AST 16, ALT 16, Alkaline Phosphatase 96, Total Protein 7.6, Albumin 3.2, G lobulin 4.4 H Micro: Microbiology 05/07/24 12:00 Wound - Left Foot Gram Stain - Final Imaging Radiology Impression Foot X-Ray 05/07/24 11:44 IMPRESSION: New lucency and irregularity of the distal phalanx of the second toe, concerning for acute osteomyelitis. Unchanged irregularity of the tuft of the first digit. Electronically Signed: Quentin Thomason MD at 12:14 EDT , Assessment & Plan Assessment/Plan (1) Diabetic foot infection: (2) Osteomyelitis of toe: PLAN: Plan This is a 63-year-old gentleman admitted with worsening of right second toe foot ulcer 1. Right second toe ulcer for 3 weeks with x-ray suggestive of acute osteomyelitis and contiguous right foot cellulitis: Patient is being admitted on [facility] floor. ESR and CRP ordered. Foot x-ray individually reviewed and shows irregularity and destruction of distal phalanx of second toe, I agree with the report of acute osteomyelitis. Unchanged irregularity of tuft of right first toe. Patient is started on IV vancomycin and Zosyn. Poured Concrete Wall Technician on-call, Dr. Bey is consulted. Proposed surgery on Tuesday morning therefore n.p.o. Tuesday midnight. Discussed with charge nurse 2. Diabetes mellitus type 2 complicated with diabetic neuropathy: Accu-Chek before meals and at bedtime with Humalog sliding scale coverage and hypoglycemia protocol. A1c tomorrow AM. Glucose on BMP is 185. ADA diet. 3. CAD, chronic HFrEF: Patient follows in [facility]. History of nonobstructive CAD. EF 45% as per echo of June 2022 which is improved compared to the last. Continue carvedilol, Entresto, spironolactone, Jardiance and furosemide. 4 PAD: Previous arterial study in March 2022 shows evidence of arterial calcification at the ankle level bilaterally. Moderate impairment of treated for a distal level. Lower EXTR arterial study ordered DVT prophylaxis, high risk: Lovenox 40 mg subcu daily. Living will/advanced directive/end of life care: Patient does not have living will or advanced directive. His present in the ED is next of kin. After discussion of benefits/risks procedures involved with full code, DNR CC arrest and DNR CC, the patient opted for full code. Patient does want artificial life support including intubation, tube feed, ventilator and/chest compression, central venous catheter, vasopressor and DC shock if needed Total time spent in [id number] encounter in discussion of advanced directive 17 minutes. Microbiology Past 72 Hours 05/07/24 12:00 Wound - Left Foot Gram Stain - Final Laboratory Results 05/07/24 11:56: S.aureus Protein A PCR NEGATIVE, MRSA (PCR) Negative 05/07/24 12:13: WBC 7.1, RBC 5.16, Hgb 15.3, Hct 48.2, MCV 93.4, MCH 29.7, MCHC 31.7 L, RDW Std Deviation 44.7 H, RDW Coeff of Kylee 13.0, Plt Count 219, MPV 9.6, Immature Gran % (Auto) 0.600, Neut % (Auto) 68.9, Lymph % (Auto) 19.9, Stewart % (Auto) 7.9, Eos % (Auto) 2.0, Baso % (Auto) 0.7, Absolute Neuts (auto) 4.9, Absolute Lymphs (auto) 1.41, Nucleated RBC % 0, PT 14.9, INR 1.2, APTT 33.8, Sodium 136, Potassium 4.2, Chloride 105, Carbon Dioxide 24.0, Anion Gap 7, BUN 30 H, Creatinine 1.04, Estim Creat Clear Calc 92.91, Est GFR (MDRD) Af Amer 93, Est GFR (MDRD) Non-Af 77, BUN/Creatinine Ratio 28.8 H, Glucose 185 H, Lactic Acid 1.1, Calcium 9.4, Magnesium 2.5, Total Bilirubin 0.50, Direct Bilirubin 0.17, AST 16, ALT 16, Alkaline Phosphatase 96, Total Protein 7.6, Albumin 3.2, G lobulin 4.4 H Clinical Impression(s) from Imaging Studies Foot X-Ray 05/07/24 11:44 IMPRESSION: New lucency and irregularity of the distal phalanx of the second toe, concerning for acute osteomyelitis. Unchanged irregularity of the tuft of the first digit. Charges/Coding Visit Charges Inpatient E&M: 32609 Init Hosp L3 Procedures Hospitalists Procedures: 27483 Advncd Care Plan 30 Min
--- NOTE | 2024-05-07 16:27 | ART_ITS ---
Reason For Study: Ulcer Procedure A bilateral lower extremity continuous wave Doppler with analog waveform analysis,segmental pressures,and ankle brachial indexes without exercise. Left Segmental Pressures Left posterior tibial artery = >254mmHg. Left dorsalis pedis artery = >254mmHg. Left digit = 85 mmHg. The left dorsalis pedis waveforms are triphasic. The left posterior tibial artery waveforms are triphasic. Right Segmental Pressures Right brachial= 147mmHg. Right posterior tibial artery = >254mmHg. Right dorsalis pedis artery = >254mmHg. The right dorsalis pedis waveforms are biphasic. The right posterior tibial artery waveforms are biphasic. Indices The right ankle brachial index by the dorsalis pedis is NC. The right ankle brachial index by the posterior tibial artery is NC. The left ankle brachial index by the dorsalis pedis is NC. The left ankle brachial index by the posterior tibial artery is NC. The left digital-brachial index is 0.58. VL/Lower Ext Art Exam w/o Exercis Interpretation Summary Biphasic Doppler waveforms are noted at ankle level on the right. Triphasic Dop pler waveforms are noted at ankle level on the left. Pulse-volume recordings appear diminished at digital level on the right, but satisfactory at all other levels bilaterally. Resting ankle-brachial indices could not be determined on either side due to the non-compressibility of the vasculature at ankle level bilaterally. The right digital-brachial index could not be determined due to th e presence of wounds. The left digital-brachial index is mildly diminished. There is evidence of arterial calcification at ankle level bilaterally. The deg ree of arterial occlusive disease in the right lower extremity is not quantified due to the non -compressibility of the vasculature at ankle level, and the fact that a digital-brachial index was not determined due to the presence of wounds. Arterial flow appears to be normal at ankle level on th e left. There is evidence of mild arterial occlusive disease at digital level on the left. Ordering Physician: Kp Mendosa Performed By: Ruth Harris RVT
[2024-05-07 16:53] LABS: Erythrocyte Sedimentation Rate 65 mm/hr (0-20)
--- NOTE | 2024-05-07 18:27 | PCM.RX.CS ---
Consult Antibiotic Management Pharmacy has been consulted to manage selected antibiotic: Vancomycin Type of Intervention Type of Consult: New start Suspected Infection Suspected Infection: Skin/Soft tissue Prior Doses of Antibiotics Prior Doses of Antibiotics Received/Current Regimen: Received 2000mg iv x 1 as loading dose. Labs Labs: Sodium 136 mmol/L (136-145) 05/07/24 12:13 Potassium 4.2 mmol/L (3.5-5.1) 05/07/24 12:13 Chloride 105 mmol/L (98-107) 05/07/24 12:13 Carbon Dioxide 24.0 mmol/L (21.0-32.0) 05/07/24 12:13 Anion Gap 7 (5-15) 05/07/24 12:13 BUN 30 mg/dL (7-18) H 05/07/24 12:13 Creatinine 1.04 mg/dL (0.70-1.30) 05/07/24 12:13 Est GFR (MDRD) Af Amer 93 mL/min (>60) 05/07/24 12:13 Est GFR (MDRD) Non-Af 77 mL/min (>60) 05/07/24 12:13 BUN/Creatinine Ratio 28.8 RATIO (10-20) H 05/07/24 12:13 Glucose 185 mg/dL (74-106) H 05/07/24 12:13 Microbiology Microbiology: Microbiology 05/07/24 12:00 Wound - Left Foot Gram Stain - Final Dosing Weight Weight used for dosin.7 kg Estimated Creatinine Clearance Estimated Creatinine Clearance: 93 ml/min Goal Trough Goal Trough: 15-20 mcg/mL Pharmacy Plan for Drug Dosing Pharmacy Plan for Drug Dosing: Recommend a starting dose of 1750mg iv q12h. Trough level before 4th total dose per protocol. Pharmacy Service will continue to monitor and adjust dosing as required.
[2024-05-07] MEDS: Piperacil/Tazobactam 3.375 GM in 0.9% Normal Saline (50mL MB+) 50 ML IV (21:32)
[2024-05-07 22:11] LABS: Bedside Glucose 237 mg/dL (74-106)
[2024-05-07] MEDS: Insulin Lispro 100 UNIT/ML INSULN.PEN SC (22:21)
[2024-05-07] MEDS: traZODone 50 MG Tablet PO (22:35)
[2024-05-08] MEDS: Vancomycin HCl 1,750 MG in 0.9% Normal Saline (500mL Bag) 500 ML 250 MG IV ×2 (02:04→12:40)
[2024-05-08 02:11] VITALS: BP 103/59; PULSE 67; RESP 16; TEMP 36.3; O2SAT 94
[2024-05-08] MEDS: Piperacil/Tazobactam 3.375 GM in 0.9% Normal Saline (50mL MB+) 50 ML IV ×3 (06:01→22:02)
[2024-05-08 06:22] LABS: Bedside Glucose 105 mg/dL (74-106)
--- NOTE | 2024-05-08 06:31 | PCM.PN.HOSP ---
Reason for Visit Reason for Visit: Diagnoses Type 2 diabetes mellitus with other skin complications (05/07/24) Local infection of the skin and subcutaneous tissue, unspecified (05/07/24) Osteomyelitis, unspecified (05/07/24) Subjective Subjective Patient with no acute events overnight per self and per nursing report. Evaluation just following ANALILIA/PVR assessment however final read is pending. Patient notes primarily discomfort with palpation but states he has significant neuropathy to the extremities and the discomfort is more so with even just touch to the lower extremities bilaterally. Discussed plan of care given necrotic plan for operative intervention per podiatry to which patient is amenable. Patient denies fevers, chills, nausea, emesis, abdominal pain, chest pain or dyspnea. Objective Data Objective Data Vital Signs: Vital Signs Temp Pulse Resp BP Pulse Ox O2 Del Method 97.3 F L 67 16 103/59 L 94 Room Air 05/08/24 02:11 05/08/24 02:11 05/08/24 02:11 05/08/24 02:11 05/08/24 02:11 05/08/24 02:11 Oxygen Delivery Method Room Air Weight: 257 lb 4.8 oz Body Mass Index (BMI) 39.1 Intake & Output: Intake and Output for Last 24 Hours 05/06/24 05/07/24 05/08/24 23:59 23:59 23:59 Intake Total 890 / 890 1185 / 1185 Balance 890 / 890 1185 / 1185 Lab / Micro Data 05/08/24 06:04 05/08/24 06:04 Labs: Laboratory Results - last 24 hr 05/07/24 11:56: S.aureus Protein A PCR NEGATIVE, MRSA (PCR) Negative 05/07/24 12:13: WBC 7.1, RBC 5.16, Hgb 15.3, Hct 48.2, MCV 93.4, MCH 29.7, MCHC 31.7 L, RDW Std Deviation 44.7 H, RDW Coeff of Kylee 13.0, Plt Count 219, MPV 9.6, Immature Gran % (Auto) 0.600, Neut % (Auto) 68.9, Lymph % (Auto) 19.9, Jack % (Auto) 7.9, Eos % (Auto) 2.0, Baso % (Auto) 0.7, Absolute Neuts (auto) 4.9, Absolute Lymphs (auto) 1.41, Nucleated RBC % 0, ESR 65 H, PT 14.9, INR 1.2, APTT 33.8, Sodium 136, Potassium 4.2, Chloride 105, Carbon Dioxide 24.0, Anion Gap 7, BUN 30 H, Creatinine 1.04, Estim Creat Clear Calc 92.91, Est GFR (MDRD) Af Amer 93, Est GFR (MDRD) Non-Af 77, BUN/Creatinine Ratio 28.8 H, Glucose 185 H, Lactic Acid 1.1, Calcium 9.4, Magnesium 2.5, Total Bilirubin 0.50, Direct Bilirubin 0.17, AST 16, ALT 16, Alkaline Phosphatase 96, Total Protein 7.6, Albumin 3.2, Globulin 4.4 H 05/07/24 17:01: C-React Prot Ext Range 16.10 H 05/07/24 21:25: POC Glucose 237 H 05/08/24 05:58: POC Glucose 105 Micro: Microbiology 05/07/24 12:00 Wound - Left Foot Gram Stain - Final Radiography Diagnostic Testing: Radiology Impression Foot X-Ray 05/07/24 11:44 IMPRESSION: New lucency and irregularity of the distal phalanx of the second toe, concerning for acute osteomyelitis. Unchanged irregularity of the tuft of the first digit. Electronically Signed: Quentin Thomason MD at 12:14 EDT Reading Location ID and State: [facility] / [place] , Service support , Physical Exam Narrative Physical Examination: General: Awake, alert, oriented x 3 and cooperative, seated upright in CA bed, no acute distress, no acute complaints. Skin: Normal color, normal turgor, no icterus, no cyanosis except bilateral lower extremity venous stasis skin changes as well as right second toe necrotic appearance with Belle necrosis erythema as well as edema and increased warmth especially toward the second metatarsal, malodorous. HEENT: AT/NC, EOMI, PERRLA, MMM. Lungs: Mild diminished, greater bases, appropriate effort, no rales, ronchi or wheezing. Heart: Regular rate and rhythm; no gallop, rub audible. Abdomen: Soft, morbidly obese, NTTP, ND, mildly hyperactive BS. Extremities: No cyanosis, no clubbing, see skin. Neurological: Patient awake, alert, oriented as noted, cognitive function intact; pupils equally reactive to light and accommodation, cranial nerves grossly normal, moving all 4 extremities, no focal deficits, strength mildly to moderately globally Zohreh secondary to acute presentation complaints. Psychiatric: Affect appears fatigued otherwise normal, no acute evidence of depressive or anxiety feelings. 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 Morales and podiatric medicine with worsened appearance despite oral antibiotic therapy initially superficial blister progressively worsening becoming black in color necrotic with surrounding cellulitis prompting ED referral. #1. Right second toe diabetic wound, ulceration with cellulitis with concern for acute osteomyelitis of the distal second toe: In the ED plain film of the foot with new lucency and irregularity of the distal phalanx of the second toe concerning for acute osteomyelitis, CBC with WBC 7.1, human 15.3, platelets 219 without marked shift, ESR 65, CRP 16.10, glucose upon presentation 185, magnesium 2.5, lactic acid 1.1 admitted to medical surgical floor, maintain on IV vancomycin and IV Zosyn, requested wound Cx and wound MRSA PCR, continue affected extremity elevation above heart when seated and in bed, monitor erythema outline with VS checks, continue consultation with podiatric medicine, infectious disease consult, planned OR 05/09/2024 with potentially right second toe amputation plus or minus second metatarsal head resection. Status post 05/08/2024 ANALILIA/PVR, awaiting final read but prelim review with biphasic dorsalis pedis posterior tibial pulses with calcified vessels at the level of the ankle involving the PT and DP arteries. #2. 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 #3. CAD: Noted in history, from cardiology note cardiac catheterization 06/18/2021 with significantly reduced severe global LV systolic dysfunction with EF 20% at that time with nonobstructive coronary arteries with mild luminal irregularities only, continue aspirin, Coreg, Entresto not on a statin therapy, attempted to clarify. #4. Cardiomyopathy, unclear type/HF mildly reduced EF, improved from prior reduced EF of 20%: Most recent evaluation noted 06/08/2021 cardiac catheterization with 20% EF at that time, clinically improved with most recent echocardiogram 06/24/2022 w/ mild dilated LV, mild global LV systolic dysfunction, EF 45%, moderately enlarged LA, mild focal AV calcification, continue aspirin, Coreg, Entresto, spironolactone, Lasix home regimen, judicious hydration only if necessary. Clarifying if on statin therapy but per most recent cardiology note does not appear to be present and no allergy listed. #5. Hypertension: Continue home regimen including Coreg, Lasix, Entresto, spironolactone with hold parameters as needed, PRN hydralazine. #6. Hyperlipidemia: Per current list and per most recent cardiology visit patient is not on statin therapy, attempting to clarify given history. #7. Morbid Obesity: Weight loss and lifestyle changes encouraged. #8. Former tobacco use: Encourage continued tobacco use, #9. DVT prophylaxis: Lovenox. Charges/Coding Visit Charges Inpatient E&M: 20506 Subs Hosp L3
[2024-05-08 06:56] LABS: Absolute Lymphocyte Count 1.46 X10^3/uL (0.83-4.51); Absolute Neutrophil Count 3.3 X10^3/uL (2.0-7.7); Basophil# 0.04 X10^3/uL; Basophil% 0.7 % (0-1); Eosinophil# 0.16 X10^3/uL; Hematocrit 45.6 % (40-54); Hemoglobin 14.4 g/dL (13.0-16.5); Lymphocyte # 1.46 X10^3/ul (0.83-4.51); Lymphocyte % 27.2 % (19-41); Mean Corp Hgb Conc 31.6 g/dL (32-36); Mean Corpuscular Hgb 29.3 pg (27.0-32.0); Mean Corpuscular Volume 92.9 fL (80-94); Mean Platelet Vol. 9.6 fl (6.2-12.0); Monocyte# 0.44 X10^3/uL; Monocyte% 8.2 % (0-10); NRBC Flagged by Analyzer 0 % (0-5); Neutrophil # 3.25 X10^3/uL (2.7-7.7); Neutrophil % 60.5 % (47-70); Platelet Count 197 K/mm3 (150-450); RBC Distribution Width CV 12.8 % (11.6-14.6); RBC Distribution Width SD 44.2 fl (35.1-43.9); Red Blood Count 4.91 M/mm3 (4.6-6.2); White Blood Count 5.4 K/mm3 (4.4-11.0)
[2024-05-08 07:48] LABS: Anion Gap 5 (5-15); BUN 22 mg/dL (7-18); BUN/Creat Ratio 25.6 RATIO (10-20); Chloride 109 mmol/L (98-107); Creatinine, Serum 0.86 mg/dL (0.70-1.30); EST Glomerular Filtration Rate 96 mL/min (>60); Est Glom Filt Rate - Afr Amer 116 mL/min (>60); Estimated Creatinine Clearance 111.92 ml/min; Glucose 106 mg/dL (74-106); Potassium 3.8 mmol/L (3.5-5.1); Sodium Level 139 mmol/L (136-145)
[2024-05-08 08:45] VITALS: BP 140/69; PULSE 73; RESP 16; TEMP 36.6; O2SAT 98
[2024-05-08] MEDS: Glucerna Shake 120 ML LIQUID PO ×3 (08:56→18:39)
[2024-05-08] MEDS: Spironolactone 25 MG Tablet 12.5 MG PO (09:00)
[2024-05-08] MEDS: Carvedilol 6.25 MG Tablet PO ×2 (09:01→22:01)
[2024-05-08] MEDS: SACUBITRIL/VALSARTAN 49-51 MG TABLET 1 EACH PO ×2 (09:01→22:01)
[2024-05-08] MEDS: Insulin Glargine-YFGN 100 UNIT/ML Pen 72 UNIT SC ×2 (09:01→22:02)
[2024-05-08] MEDS: Furosemide 20 MG Tablet PO (09:01)
[2024-05-08 09:06] LABS: Erythrocyte Sedimentation Rate 61 mm/hr (0-20)
--- NOTE | 2024-05-08 09:32 | WOUNDNOTE ---
wound photo: right 2nd toe
--- NOTE | 2024-05-08 09:33 | WOUNDNOTE ---
wound photo: right 2nd toe
--- NOTE | 2024-05-08 10:31 | PCM.CONS.GEN ---
Assessment & Plan Assessment/Plan (1) Osteomyelitis of toe: PLAN: R 2nd toe gangrene, podiatry consulted, wound cx pending, cont empiric vanc/zosyn. Recent wound cx with serratia, GBS, staph epi, enterococcus, and anaerobes. Will follow, thank you (2) Diabetes mellitus: HPI Consult Data Date of Consult: 05/08/24 HPI Narrative Reason for Consultation: toe gangrene HPI Narrative: OLY SMITH, is a 63 M with DM neuropathy, prior toe amputation, presented with about 3 weeks of R 2nd toe ulceration, swelling, mild pain. Saw foot doctor, has been on cipro and keflex. Over past few days, toe turned black and hurt a little more. Some chills. No n/v/d. Admitted here on vanc/zosyn. Full ROS performed and neg except as noted above. [facility] Medical History Retinopathy Arthritis Former smoker CHF (congestive heart failure) Atherosclerotic heart disease of [place] coronary artery without angina pectoris CAD (coronary artery disease) Cardiomyopathy Heart failure Diabetes Morbid obesity Ventral incisional hernia without obstruction or gangrene Foot osteomyelitis, right Gangrene Chronic ulcer of right foot with fat layer exposed Cellulitis of right foot Type 2 diabetes mellitus with diabetic polyneuropathy Chronic ulcer of right foot with necrosis of bone Osteomyelitis Non-pressure chronic ulcer of right heel and midfoot with bone involvement without evidence of necrosis Chronic ulcer of left foot with fat layer exposed PVD (peripheral vascular disease) Delayed wound healing Tobacco use Obesity (BMI 30-39.9) Home Medications ?Medication ?Instructions ?Recorded ?Last Taken ?Type insulin aspart U-100 100 unit/mL 25 unit subcut .COMPLEX diabetes 07/07/21 Unknown History (3 mL) subcutaneous pen insulin degludec 100 unit/mL subcut .AC Check with primary 12/24/21 Unknown History subcutaneous solution doctor glimepiride 2 mg tablet 2 mg PO DAILY diabetes 01/03/23 Unknown History sacubitril 49 mg-valsartan 51 mg 1 tab PO BID see physician #180 04/12/23 05/07/24 Rx tablet (Entresto) tabs carvedilol 6.25 mg tablet 6.25 mg PO BID blood 11/08/23 05/07/24 Rx pressure/heart #180 tabs empagliflozin 25 mg tablet 25 mg PO DAILY diabetes #90 tabs 11/08/23 05/07/24 Rx (Jardiance) furosemide 40 mg tablet (Lasix) 20 mg (1/2 x 40 mg) PO DAILY water 11/08/23 05/07/24 Rx pill #45 tabs metformin 500 mg tablet 1,000 mg PO BID diab 11/08/23 Unknown History spironolactone 25 mg tablet 12.5 mg (1/2 x 25 mg) PO DAILY see 11/08/23 05/07/24 Rx physicia #45 tabs trazodone 50 mg tablet 25 mg PO QHS PRN insomnia 11/08/23 Unknown History cephalexin 250 mg capsule 750 mg PO BID infection 05/07/24 05/07/24 History ciprofloxacin HCl 750 mg tablet 750 mg PO BID infection 05/07/24 05/07/24 History insulin degludec 200 unit/mL (3 72 unit subcut BID diabetes 05/07/24 Unknown History mL) subcutaneous pen (Tresiba FlexTouch U-200 insulin) sennosides 8.6 mg tablet (Senokot) 8.6 mg PO DAILY PRN consti 05/07/24 Unknown History Allergy/AdvReac Type Severity Reaction Status Date / Time perflutren (From Definity) Allergy Intermediate Severe Verified 05/07/24 11:10 back and hip pain Family History Mother Colon cancer Grandmother Diabetes Surgical History History of left heart catheterization (LHC) (~06/18/21) Status post amputation of toe S/P cataract extraction S/P laparoscopic cholecystectomy Social History Smoking Status: Former smoker how long ago did patient quit smoking: Used to smoke occasional cigar second hand exposure: Yes alcohol intake: current alcohol intake frequency: a few times a month substance use type: does not use caffeine: Yes Type: coffee and tea Physical Exam Const alert, oriented x3 and no apparent distress General Appearance: cooperative HEENT normocephalic and head/scalp atraumatic Eyes PERRL and EOMs intact bilaterally Neck supple and No nodes Resp normal air movement and clear to auscultation bilaterally Cardio regular rate and regular rhythm GI soft to palpation, non-tender and non-distended Extremity General Extremity: Negative for edema Skin Skin Narrative: R 2nd toe gangrene Neuro CN's II-XII intact bilaterally Lab / Micro Data Attestation: I reviewed the patient's lab results. 05/08/24 06:04 05/08/24 06:04 Labs: Laboratory Results - last 24 hr 05/07/24 11:56: S.aureus Protein A PCR NEGATIVE, MRSA (PCR) Negative 05/07/24 12:13: WBC 7.1, RBC 5.16, Hgb 15.3, Hct 48.2, MCV 93.4, MCH 29.7, MCHC 31.7 L, RDW Std Deviation 44.7 H, RDW Coeff of Kylee 13.0, Plt Count 219, MPV 9.6, Immature Gran % (Auto) 0.600, Neut % (Auto) 68.9, Lymph % (Auto) 19.9, [place] % (Auto) 7.9, Eos % (Auto) 2.0, Baso % (Auto) 0.7, Absolute Neuts (auto) 4.9, Absolute Lymphs (auto) 1.41, Nucleated RBC % 0, ESR 65 H, PT 14.9, INR 1.2, APTT 33.8, Sodium 136, Potassium 4.2, Chloride 105, Carbon Dioxide 24.0, Anion Gap 7, BUN 30 H, Creatinine 1.04, Estim Creat Clear Calc 92.91, Est GFR (MDRD) Af Amer 93, Est GFR (MDRD) Non-Af 77, BUN/Creatinine Ratio 28.8 H, Glucose 185 H, Lactic Acid 1.1, Calcium 9.4, Magnesium 2.5, Total Bilirubin 0.50, Direct Bilirubin 0.17, AST 16, ALT 16, Alkaline Phosphatase 96, Total Protein 7.6, Albumin 3.2, Globulin 4.4 H 05/07/24 17:01: C-React Prot Ext Range 16.10 H 05/07/24 21:25: POC Glucose 237 H 05/08/24 05:58: POC Glucose 105 05/08/24 06:04: WBC 5.4, RBC 4.91, Hgb 14.4, Hct 45.6, MCV 92.9, MCH 29.3, MCHC 31.6 L, RDW Std Deviation 44.2 H, RDW Coeff of Kylee 12.8, Plt Count 197, MPV 9.6, Immature Gran % (Auto) 0.400, Neut % (Auto) 60.5, Lymph % (Auto) 27.2, [place] % (Auto) 8.2, Eos % (Auto) 3.0, Baso % (Auto) 0.7, Absolute Neuts (auto) 3.3, Absolute Lymphs (auto) 1.46, Nucleated RBC % 0, ESR 61 H, Sodium 139, Potassium 3.8, Chloride 109 H, Carbon Dioxide 25.0, Anion Gap 5, BUN 22 H, Creatinine 0.86, Estim Creat Clear Calc 111.92, Est GFR (MDRD) Af Amer 116, Est GFR (MDRD) Non-Af 96, BUN/Creatinine Ratio 25.6 H, Glucose 106, Calcium 9.0, C-React Prot Ext Range 10.50 H, TSH 1.850 Micro: Microbiology 05/07/24 12:00 Wound - Left Foot Gram Stain - Final 05/07/24 12:00 Wound - Left Foot Wound Culture - Preliminary Gram positive organism Gram positive organism#2 Imaging Radiology Impression Foot X-Ray 05/07/24 11:44 IMPRESSION: New lucency and irregularity of the distal phalanx of the second toe, concerning for acute osteomyelitis. Unchanged irregularity of the tuft of the first digit. Electronically Signed: Quentin Thomason MD at 12:14 EDT ,
[2024-05-08 12:03] LABS: M R Staph aureus DNA By PCR Negative (Negative); Probe Check PASS; Specimen Processing Control PASS; Staph aureus DNA By PCR NEGATIVE (Negative)
[2024-05-08 12:36] LABS: Hemoglobin A1c 10.1 % (3.8-5.6)
[2024-05-08] MEDS: Insulin Lispro 100 UNIT/ML INSULN.PEN SC ×3 (12:40→22:01)
[2024-05-08 12:42] LABS: Bedside Glucose 163 mg/dL (74-106)
[2024-05-08] MEDS: Ibuprofen 400 MG Tablet 800 MG PO (12:51)
--- NOTE | 2024-05-08 14:38 | CASEMGMT ---
KIKA ROD Assessment: Face to Face with pt for initial transition planning/care coordination assessment. KIKA ROD introduced self and role at [facility], pt voices understanding and consents to assessment. Pt is A&O x4 and answers all questions appropriately at this time. Pt lying in bed in no distress with and dtr at bedside. Pt agreeable to assessment with visitors present. Care providers, pharmacy, and demographics verified/updated. Admitting Dx: Right 2nd toe osteomyelitis with ulce, cellulitis Strata Score: 2 PCP:None, provided pt with a local healthcare directory Specialists:Carmen, pod; [facility], cardio Preferred Pharmacy: [facility] Insurance: [employer] Exchange Plan Prescription Benefit: yes LNOK: Teena Moralez, ; Marley Moralez, dtr Living Arrangements: Pt lives with in a two story home with 4 steps to enter with a rail. Pt only uses main level. Pt reports he is I in ADLs and denies concerns at home. Transportation: Pt drives self and denies concerns with transportation. DME:canes, walker, w/c, knee scooter, BGM with strips and lancets. Pt does have insulin at home but needs insulin and pen needles upon dc as he does not have PCP to write for these. HHC/SNF: Pt has had HHC in the past but is unsure of the name of the agency. Pt denies SNF stays. Pt states no concerns with going home at time of dc. Pt states his and granddtr perform wound care currently. Pt has done IV's for pt in the past. ID consult. Discussed options should pt happen to need IV's at dc as he does not have PCP. Pt states no further concerns/needs. CM to follow. Advised pt to ask CM if any further question/concerns/needs arise, voices understanding. Pt Goal: Home Plan: Home, follow for ID rec and wound care orders Suzie ANAND CM
[2024-05-08 15:00] VITALS: BP 158/82; PULSE 72; RESP 16; TEMP 36.5; O2SAT 96
[2024-05-08 17:36] LABS: Bedside Glucose 309 mg/dL (74-106)
[2024-05-08 21:52] VITALS: BP 163/73; PULSE 62; RESP 16; TEMP 36.6; O2SAT 95
[2024-05-08] MEDS: traZODone 50 MG Tablet PO (22:12)
[2024-05-08 23:32] LABS: Bedside Glucose 268 mg/dL (74-106)
[2024-05-09] VITALS (11 sets, daily range): BP systolic 103–171; BP diastolic 62–87; PULSE 61–73; RESP 16–18; TEMP 36.1–36.9; O2SAT 92–99; BMI 39.1
[2024-05-09 01:03] LABS: Vancomycin, Trough Level 19.5 ug/mL (5.0-15.0)
--- NOTE | 2024-05-09 01:16 | PCM.RX.CS ---
Consult Antibiotic Management Pharmacy has been consulted to manage selected antibiotic: Vancomycin Type of Intervention Type of Consult: Follow-up Suspected Infection Suspected Infection: Skin/Soft tissue Labs Labs: Sodium 139 mmol/L (136-145) 05/08/24 06:04 Potassium 3.8 mmol/L (3.5-5.1) 05/08/24 06:04 Chloride 109 mmol/L (98-107) H 05/08/24 06:04 Carbon Dioxide 25.0 mmol/L (21.0-32.0) 05/08/24 06:04 Anion Gap 5 (5-15) 05/08/24 06:04 BUN 22 mg/dL (7-18) H 05/08/24 06:04 Creatinine 0.86 mg/dL (0.70-1.30) 05/08/24 06:04 Est GFR (MDRD) Af Amer 116 mL/min (>60) 05/08/24 06:04 Est GFR (MDRD) Non-Af 96 mL/min (>60) 05/08/24 06:04 BUN/Creatinine Ratio 25.6 RATIO (10-20) H 05/08/24 06:04 Glucose 106 mg/dL (74-106) 05/08/24 06:04 Vancomycin Trough 19.5 ug/mL (5.0-15.0) H 05/09/24 00:25 Microbiology Microbiology: Microbiology 05/07/24 12:00 Wound - Left Foot Gram Stain - Final 05/07/24 12:00 Wound - Left Foot Wound Culture - Preliminary Gram positive organism Gram positive organism#2 Dosing Weight Weight used for dosin kg Estimated Creatinine Clearance Estimated Creatinine Clearance: 112 Goal Trough Goal Trough: 15-20 mcg/mL Pharmacy Plan for Drug Dosing Pharmacy Plan for Drug Dosing: Vancomycin trough level of 19.5, drawn 11.75hrs post-dose, was within the target range of 15-20. Will continue dosing at 1750mg q12h, and will draw another trough level in two days. Pharmacy Service will continue to monitor and adjust dosing as required. Follow-Up Labs Follow-Up Labs: Trough: Vancomycin Date/Time Labs Ordered Labs to be done on [date and time ordered]: 05/11/24 @0030
[2024-05-09] MEDS: Vancomycin HCl 1,750 MG in 0.9% Normal Saline (500mL Bag) 500 ML 250 MG IV ×2 (02:27→13:30)
--- NOTE | 2024-05-09 05:00 | EKG12_ITS ---
Test Reason : PRE OP Blood Pressure : / mmHG Vent. Rate : 074 BPM Atrial Rate : 074 BPM P-R Int : 154 ms QRS Dur : 152 ms QT Int : 426 ms P-R-T Axes : 035 -33 -02 degrees QTc Int : 472 ms Normal sinus rhythm with sinus arrhythmia Left axis deviation Right bundle branch block Abnormal ECG When compared with ECG of 18-JUN-2021 04:55, Premature ventricular complexes are no longer Present Questionable change in QRS axis T wave inversion now evident in Inferior leads T wave inversion no longer evident in Anterolateral leads Confirmed by OSCAR GROVER, AUGUSTO ([id number]), photo editor GWEN MARTINI ([id number]) on 05/11/2024 7:21:55 AM Referred By: CARLINE Confirmed By:NEETA MOORE MD
--- NOTE | 2024-05-09 06:21 | PN.HOSP_ITS ---
Reason for Visit Reason for Visit: Diagnoses Type 2 diabetes mellitus with other skin complications (05/07/24) Type 2 diabetes mellitus without complications (05/07/24) Local infection of the skin and subcutaneous tissue, unspecified (05/07/24) Osteomyelitis, unspecified (05/07/24) Subjective Subjective Patient with no acute events overnight per self or per nursing report. Patient notes less sensitivity to the right lower extremity but does have underlying significant chronic neuropathy and discomfort is more so with touch. Discussed again plan of care Enea several questions regarding operative intervention and discussed that unfortunately the surgeon would have to see what the tissue and bone consistency and appearance is like during OR intervention to ascertain whether or not he needs to go beyond a toe resection. Patient denies fevers, chills, nausea, emesis, abdominal pain, chest pain or dyspnea. Objective Data Objective Data Vital Signs: Vital Signs Temp Pulse Resp BP Pulse Ox O2 Del Method 98.1 F 71 16 131/62 H 99 Room Air 05/09/24 03:32 05/09/24 03:32 05/09/24 03:32 05/09/24 03:32 05/09/24 03:32 05/09/24 03:32 Oxygen Delivery Method Room Air Weight: 257 lb 4.789 oz Body Mass Index (BMI) 39.1 Intake & Output: Intake and Output for Last 24 Hours 05/07/24 05/08/24 05/09/24 23:59 23:59 23:59 Intake Total 890 / 890 1820 / 1820 585 / 585 Output Total 600 / 600 Balance 890 / 890 1220 / 1220 585 / 585 Lab / Micro Data 05/09/24 06:12 05/09/24 06:12 Labs: Laboratory Results - last 24 hr 05/08/24 05:58: POC Glucose 105 05/08/24 06:04: WBC 5.4, RBC 4.91, Hgb 14.4, Hct 45.6, MCV 92.9, MCH 29.3, MCHC 31.6 L, RDW Std Deviation 44.2 H, RDW Coeff of Kylee 12.8, Plt Count 197, MPV 9.6, Immature Gran % (Auto) 0.400, Neut % (Auto) 60.5, Lymph % (Auto) 27.2, Cabell % (Auto) 8.2, Eos % (Auto) 3.0, Baso % (Auto) 0.7, Absolute Neuts (auto) 3.3, Absolute Lymphs (auto) 1.46, Nucleated RBC % 0, ESR 61 H, Sodium 139, Potassium 3.8, Chloride 109 H, Carbon Dioxide 25.0, Anion Gap 5, BUN 22 H, Creatinine 0.86, Estim Creat Clear Calc 111.92, Est GFR (MDRD) Af Amer 116, Est GFR (MDRD) Non-Af 96, BUN/Creatinine Ratio 25.6 H, Glucose 106, Hemoglobin A1c 10.1 H, Calcium 9.0, C-React Prot Ext Range 10.50 H, TSH 1.850 05/08/24 10:00: S.aureus Protein A PCR NEGATIVE, MRSA (PCR) Negative 05/08/24 12:22: POC Glucose 163 H 05/08/24 17:18: POC Glucose 309 H 05/08/24 21:58: POC Glucose 268 H 05/09/24 00:25: Vancomycin Trough 19.5 H Micro: Microbiology 05/07/24 12:00 Wound - Left Foot Gram Stain - Final 05/07/24 12:00 Wound - Left Foot Wound Culture - Preliminary Gram positive organism Gram positive organism#2 Physical Exam Narrative Physical Examination: General: Awake, alert, oriented x 3 and cooperative, seated upright in MS bed, no acute distress, no acute complaints. Skin: Normal color, normal turgor, no icterus, no cyanosis except bilateral lower extremity venous stasis skin changes as well as right second toe necrotic appearance with erythema, edema although improved from admission with decreased warmth, still malodorous. HEENT: AT/NC, EOMI, PERRLA, MMM, large facial tse. Lungs: Mild diminished, greater bases, appropriate effort, no rales, ronchi or wheezing. Heart: Regular rate and rhythm; no gallop, rub audible. Abdomen: Soft, morbidly obese, NTTP, ND, normal BS. Extremities: No cyanosis, no clubbing, see skin. Neurological: Patient awake, alert, oriented as noted, cognitive function intact; pupils equally reactive to light and accommodation, cranial nerves grossly normal, moving all 4 extremities, no focal deficits, strength mildly to moderately globally decreased. Psychiatric: Affect appears fatigued otherwise normal, no acute evidence of depressive or anxiety feelings. Assessment & Plan Assessment/Plan (1) Osteomyelitis of toe: PLAN: Plan The patient is a 63 y/o M w/ PMHx: Morbid obesity, Former tobacco use, Nonobstructive CAD, HTN, HLD, PVD, Diabetes mellitus type II with chronic polyneuropathy, Cardiomyopathy unclear type/HFmildly reduced EF who presents to the [facility] ED on 05/07/24 with history of ongoing right second toe ulceration following with Dr. Morales and podiatric medicine with worsened appearance despite oral antibiotic therapy initially superficial blister progressively worsening becoming black in color necrotic with surrounding cellulitis prompting ED referral. #1. Right second toe diabetic wound, ulceration with cellulitis with concern for acute osteomyelitis of the distal second toe: In the ED plain film of the foot with new lucency and irregularity of the distal phalanx of the second toe concerning for acute osteomyelitis, CBC with WBC 7.1, human 15.3, platelets 219 without marked shift, ESR 65, CRP 16.10, glucose upon presentation 185, magnesium 2.5, lactic acid 1.1 admitted to medical surgical floor, maintain on IV vancomycin and IV Zosyn, requested wound Cx and wound MRSA PCR, continue affected extremity elevation above heart when seated and in bed, monitor erythema outline with VS checks, continue consultation with podiatric medicine, infectious disease consult, planned OR 05/09/2024 with potentially right second toe amputation plus or minus second metatarsal head resection. 05/08/2024 ANALILIA/PVR with biphasic dorsalis pedis posterior tibial pulses with calcified vessels at the level of the ankle involving the PT and DP arteries. Plan for 05/09/24 OR right second toe amputation +/- second metatarsal head pending appearance of bone during operative intervention. Following this likely will need PICC placement for longer-term antibiotic therapy but will wait OR report and repeat evaluation per infectious disease. #2. 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 #3. CAD: Noted in history, from cardiology note cardiac catheterization 06/18/2021 with significantly reduced severe global LV systolic dysfunction with EF 20% at that time with nonobstructive coronary arteries with mild luminal irregularities only, continue aspirin, Coreg, Entresto not on a statin therapy, attempted to clarify. #4. Cardiomyopathy, unclear type/HF mildly reduced EF, improved from prior reduced EF of 20%: Most recent evaluation noted 06/08/2021 cardiac catheterization with 20% EF at that time, clinically improved with most recent echocardiogram 06/24/2022 w/ mild dilated LV, mild global LV systolic dysfunction, EF 45%, moderately enlarged LA, mild focal AV calcification, continue aspirin, Coreg, Entresto, spironolactone, Lasix home regimen, judicious hydration only if necessary. Not on statin therapy. #5. Hypertension: Continue home regimen including Coreg, Lasix, Entresto, spironolactone with hold parameters as needed, PRN hydralazine. #6. Hyperlipidemia: Per current list and per most recent cardiology visit patient is not on statin therapy. #7. Morbid Obesity: Weight loss and lifestyle changes encouraged. #8. Former tobacco use: Encourage continued tobacco use, #9. DVT prophylaxis: Lovenox. Charges/Coding Visit Charges Inpatient E&M: 82204 Subs Hosp L2
[2024-05-09] MEDS: Piperacil/Tazobactam 3.375 GM in 0.9% Normal Saline (50mL MB+) 50 ML IV ×3 (06:51→22:01)
--- NOTE | 2024-05-09 07:02 | WOUNDNOTE ---
Pt going to surgery today for amputation of the right 2nd toe. will leave dressing in place.
[2024-05-09 07:11] LABS: Bedside Glucose 132 mg/dL (74-106)
[2024-05-09 07:25] LABS: Absolute Lymphocyte Count 1.53 X10^3/uL (0.83-4.51); Absolute Neutrophil Count 2.5 X10^3/uL (2.0-7.7); Basophil# 0.06 X10^3/uL; Basophil% 1.3 % (0-1); Eosinophils% 4.3 % (0-5); Hematocrit 44.5 % (40-54); Lymphocyte # 1.53 X10^3/ul (0.83-4.51); Lymphocyte % 32.6 % (19-41); Mean Corp Hgb Conc 31.5 g/dL (32-36); Mean Corpuscular Hgb 29.2 pg (27.0-32.0); Mean Corpuscular Volume 92.9 fL (80-94); Mean Platelet Vol. 9.4 fl (6.2-12.0); Monocyte# 0.42 X10^3/uL; NRBC Flagged by Analyzer 0 % (0-5); Neutrophil # 2.47 X10^3/uL (2.7-7.7); Neutrophil % 52.6 % (47-70); Platelet Count 194 K/mm3 (150-450); RBC Distribution Width CV 12.8 % (11.6-14.6); RBC Distribution Width SD 44.1 fl (35.1-43.9); Red Blood Count 4.79 M/mm3 (4.6-6.2); White Blood Count 4.7 K/mm3 (4.4-11.0)
[2024-05-09 08:16] LABS: ALB/GLOB Ratio 0.8 RATIO (0.9-2.4); AST(SGOT) 15 U/L (15-37); Alanine Aminotransfer ALT/SGPT 12 U/L (16-61); Alkaline Phosphatase 96 U/L (45-117); Anion Gap 5 (5-15); BUN 20 mg/dL (7-18); BUN/Creat Ratio 24.5 RATIO (10-20); Calcium,Total 8.8 mg/dL (8.5-10.1); Chloride 109 mmol/L (98-107); Creatinine, Serum 0.82 mg/dL (0.70-1.30); EST Glomerular Filtration Rate 102 mL/min (>60); Est Glom Filt Rate - Afr Amer 124 mL/min (>60); Estimated Creatinine Clearance 117.38 ml/min; Globulin 3.8 g/dL (2.2-4.2); Glucose 142 mg/dL (74-106); Potassium 3.8 mmol/L (3.5-5.1); Protein, Total 6.8 g/dL (6.4-8.2); Sodium Level 140 mmol/L (136-145)
[2024-05-09] MEDS: Lactated Ringers 1,000 ML 15 ML IV ×2 (11:26→13:30)
--- NOTE | 2024-05-09 11:41 | PCM.PRE.AN2 ---
ASA Classification* ASA Classification ASA Classification: 3 and E Assessment & Plan Anesthesia* Anesthesia Assessment Anesthesia Assessment: Discussed sedation and/or anesthesia options, risks, benefits, and alternatives with patient/parents/legal guardian/POA. Questions invited. The patient/parents/legal guardian/POA seems to understand and agrees to proceed with anesthesia plan. Reviewed the physical assessment, medical history, allergy history and patient home medications list prior to surgery/procedure/anesthetic and documented any changes. Performed airway and anesthesia risk assessments. Anesthesia Type Anesthesia Type: MAC (see written pre anesthesia record for full assessment) Anesthesia Focused Assessment* Temperature: 97.9 F Pulse Rate: 61 Blood Pressure: 145/87 Respiratory Rate: 16 Pulse Ox: 98 Airway Assessment Mouth opens: >3 cm Mallampati Score: II Focused Labs Anesthesia Preop lab: CBC WBC 4.7 K/mm3 (4.4-11.0) 05/09/24 06:12 RBC 4.79 M/mm3 (4.6-6.2) 05/09/24 06:12 Hgb 14.0 g/dL (13.0-16.5) 05/09/24 06:12 Hct 44.5 % (40-54) 05/09/24 06:12 Plt Count 194 K/mm3 (150-450) 05/09/24 06:12 CHEMISTRY Potassium 3.8 mmol/L (3.5-5.1) 05/09/24 06:12 Sodium 140 mmol/L (136-145) 05/09/24 06:12 Magnesium 2.5 mg/dL (1.6-2.6) 05/07/24 12:13 BUN 20 mg/dL (7-18) H 05/09/24 06:12 Creatinine 0.82 mg/dL (0.70-1.30) 05/09/24 06:12 Glucose 142 mg/dL (74-106) H 05/09/24 06:12 POC Glucose 132 mg/dL (74-106) H 05/09/24 06:50 TSH 1.850 uIU/mL (0.358-3.740) 05/08/24 06:04 COAG PT 14.9 SECONDS (11.7-14.9) 05/07/24 12:13 Pre-Assessment Diagnosis/Proposed Procedure Planned Operative Procedure(s): toe amp Anesthesia History Anesthesia History - hedis coordinator: Anesthesia History - hedis coordinator Hx Hospitalization Any Problems With Anesthesia No 05/09/24 00:52 Cholinesterase deficiency No 05/09/24 00:52 You/Your Family Experience No 05/09/24 00:52 fever (hyperthermia) with Relationship Recent Exposure to Contagious No 05/09/24 00:52 Disease Does patient have nerve No 05/09/24 00:52 stimulator Patient instructed to have No 05/09/24 00:52 device shut off --Does patient have Pacemaker or ICD? When Was Last Pacemaker Check QUESTION #4 FULL TEXT: You/Your Family Experience fever (hyperthermia) with Anesthesia Last Oral Intake Last Oral intake: Last Oral Intake NPO since 00:00 05/09/24 09:00 Meds taken in AM with sips of No 05/09/24 09:00 water? Meds patient instructed to take am of surgery PONV PONV - hedis coordinator: PONV - hedis coordinator Female HX of Motion Sickness HX of N/V After Surgery Non-Smoker Duration of Surgery greater than 60 minutes Number of Risk Factors PONV Score Height & Weight Height & Weight: Anesthesia: Height & Weight Height 5 ft 8 in 05/09/24 09:00 Weight: 116.7 kg 05/09/24 09:00 Body Mass Index (BMI) 39.1 05/09/24 09:00 Respiratory Assessment Respiratory Assessment - hedis coordinator: Respiratory Tract Infection Hx - hedis coordinator Hx Respiratory Tract Infection No 05/09/24 00:52 STOP Sleep Apnea STOP Sleep Apnea - hedis coordinator: STOP Sleep Apnea - hedis coordinator Hx Hypertension No 05/07/24 16:11 Hx Sleep Apnea No 05/07/24 16:11 CPAP No 06/16/21 00:43 BIPAP No 06/16/21 00:43 Do you snore loudly (louder No 05/07/24 16:11 than talking or can be heard Do you often feel tired/ Yes 05/07/24 16:11 fatigued/ sleepy during daytime? Has anyone observed you stop No 05/07/24 16:11 breathing during sleep? STOP Results Negative 05/07/24 16:11 QUESTION #5 FULL TEXT : Do you snore loudly (louder than talking or can be heard through closed doors)? Tobacco Use History Tobacco Use History - hedis coordinator: Tobacco Use History - hedis coordinator Tobacco Use Smoking Status Former smoker 05/07/24 19:32 Hx Tobacco Use Yes 05/07/24 16:11 Years Smoking Packs Smoked per Day Smoking Cessation Date was Yes - quit smoking within 15 05/07/24 16:11 within the last 15 years years Hx Smoking Cessation Date 05/07/19 05/07/24 16:11 Hx Smoking Cessation No 05/07/24 16:11 Counseling Hematologic Medial History Hematologic Hx - hedis coordinator: Hematologic Medical Hx - resolution agent Hx of Blood Transfusion No 05/07/24 16:11 Hx of Transfusion in last 3 No 05/07/24 16:11 Months Date of Last Transfusion (if within last 3 months) Ever experience any problems No 05/07/24 16:11 with transfusion(s)? Specify any problems Hx of Preganancy in last 3 N/A 05/07/24 16:11 Months Nurse Filling Out Transfusion [email or web address] 05/07/24 16:11 & Questions: Date: 05/07/24 05/07/24 16:11 Time: 16:12 05/07/24 16:11 Patient unable to answer at this time (ie. confused, unrespo /Reproduction History /Reproductive History - hedis coordinator: /Reproductive Hx- hedis coordinator Hx Now No 05/09/24 00:52 Gestational Age (in weeks): EDC: Hx Hx Para Hx Section SAB No 05/09/24 00:52 Active Medications Active Medications: Current Medications Generic Name Dose Route Start Last Admin Trade Name Freq PRN Reason Stop Dose Admin Acetaminophen 1,000 mg 05/07/24 22:00 05/09/24 06:51 Acetaminophen 500 Mg Tablet PO Not Given Q8 [facility] Albuterol Sulfate 2.5 mg 05/08/24 08:46 Albuterol 2.5 Mg/3 Ml Vial.Neb. INHALATION Q2H PRN PRN Dyspnea, wheezing Aspirin 81 mg 05/09/24 08:00 05/09/24 09:06 Aspirin 81 Mg Tab.Chew PO Not Given BREAKFAST [facility] Carvedilol 6.25 mg 05/08/24 10:00 05/09/24 09:06 Carvedilol 6.25 Mg Tablet PO Not Given BID [facility] Protocol Enoxaparin Sodium 40 mg 05/07/24 15:59 05/08/24 09:02 Enoxaparin 40 Mg/0.4 Ml Syringe SC Not Given Q24 [facility] Furosemide 20 mg 05/08/24 10:00 05/09/24 10:27 Furosemide 20 Mg Tablet PO Not Given DAILY [facility] Protocol Hydralazine HCl 10 mg 05/08/24 08:46 Hydralazine 20 Mg/Ml Vial IV Q4H PRN PRN SBP > 160 Protocol Sodium Chloride 250 mls @ 15 mls/hr 05/07/24 13:41 05/07/24 18:53 IV Infused .[id number] PRN Infusion Additional IVPB Infusion Sodium Chloride 250 mls @ 15 mls/hr 05/07/24 13:41 IV .[id number] PRN Saline Flush Sodium Chloride 250 mls @ 15 mls/hr 05/07/24 16:20 IV .[id number] PRN Additional IVPB Infusion Sodium Chloride 250 mls @ 15 mls/hr 05/07/24 16:20 IV .[id number] PRN Saline Flush Vancomycin IV-PHARMACY TO DOSE 500 mls @ 250 mls/hr 05/08/24 10:00 1 each/ Sodium Chloride IV PRN PRN RX TO DOSE Protocol Piperacillin Sod/Tazobactam 50 mls @ 12.5 mls/hr 05/07/24 22:00 05/09/24 10:51 Sod 3.375 gm/ Sodium Chloride IV Infused Q8 [facility] Infusion Vancomycin HCl 1,750 mg/ 535 mls @ 250 mls/hr 05/08/24 01:00 05/09/24 04:38 Sodium Chloride IV Infused Q12H [facility] Infusion Lactated Ringer's 1,000 mls @ 15 mls/hr 05/09/24 11:30 05/09/24 11:26 IV 15 mls/hr .Q48H [facility] Administration Ibuprofen 800 mg 05/07/24 21:04 05/08/24 12:51 Ibuprofen 400 Mg Tablet PO 800 mg Q8H PRN PRN Administration Pain 1-10 or Fever Insulin Glargine 72 unit 05/08/24 10:00 05/09/24 10:40 Insulin Glargine-Yfgn 100 Unit/Ml Pen SC Not Given BID [facility] Insulin Human Lispro 0 unit 05/07/24 22:00 05/09/24 10:39 Insulin Lispro 100 Unit/Ml Insuln.Pen SC Not Given ACHS [facility] Protocol Nutritional Formula (Lactose Free) 120 ml 05/08/24 08:00 05/09/24 09:06 Glucerna Shake 120 Ml Liquid PO Not Given TIDCM [facility] Oxycodone HCl 2.5 - 5 mg 05/07/24 16:28 Oxycodone 5 Mg Tablet PO Q4H PRN PRN Pain Score 4-10 Sacubitril/Valsartan 1 each 05/08/24 10:00 05/09/24 09:06 Sacubitril/Valsartan 49-51 Mg Tablet PO Not Given BID [facility] Senna 1 tablet 05/08/24 06:43 Senna Tablet PO DAILY PRN constipation Sodium Chloride 10 - 40 ml 05/07/24 16:20 0.9% Saline Lock 10 Ml Syringe IV UD PRN SALINE FLUSH Spironolactone 12.5 mg 05/08/24 10:00 05/09/24 09:06 Spironolactone 25 Mg Tablet PO Not Given DAILY [facility] Protocol Trazodone HCl 50 mg 05/07/24 22:19 05/08/24 22:12 Trazodone 50 Mg Tablet PO 50 mg QHS PRN Administration SLEEP Vancomycin Protocol 1 lab 05/10/24 22:30 Vancomycin Trough/Random Due MC 05/11/24 02:30 DAILY [facility] PFSH Medical History Retinopathy Arthritis Former smoker CHF (congestive heart failure) Atherosclerotic heart disease of [place] coronary artery without angina pectoris CAD (coronary artery disease) Cardiomyopathy Heart failure Diabetes Morbid obesity Ventral incisional hernia without obstruction or gangrene Foot osteomyelitis, right Gangrene Chronic ulcer of right foot with fat layer exposed Cellulitis of right foot Type 2 diabetes mellitus with diabetic polyneuropathy Chronic ulcer of right foot with necrosis of bone Osteomyelitis Non-pressure chronic ulcer of right heel and midfoot with bone involvement without evidence of necrosis Chronic ulcer of left foot with fat layer exposed PVD (peripheral vascular disease) Delayed wound healing Tobacco use Obesity (BMI 30-39.9) Home Medications ?Medication ?Instructions ?Recorded ?Last Taken ?Type insulin aspart U-100 100 unit/mL 25 unit subcut .COMPLEX diabetes 07/07/21 Unknown History (3 mL) subcutaneous pen insulin degludec 100 unit/mL subcut .AC Check with primary 12/24/21 Unknown History subcutaneous solution doctor glimepiride 2 mg tablet 2 mg PO DAILY diabetes 01/03/23 Unknown History sacubitril 49 mg-valsartan 51 mg 1 tab PO BID see physician #180 04/12/23 05/07/24 Rx tablet (Entresto) tabs carvedilol 6.25 mg tablet 6.25 mg PO BID blood 11/08/23 05/07/24 Rx pressure/heart #180 tabs empagliflozin 25 mg tablet 25 mg PO DAILY diabetes #90 tabs 11/08/23 05/07/24 Rx (Jardiance) furosemide 40 mg tablet (Lasix) 20 mg (1/2 x 40 mg) PO DAILY water 11/08/23 05/07/24 Rx pill #45 tabs metformin 500 mg tablet 1,000 mg PO BID diab 11/08/23 Unknown History spironolactone 25 mg tablet 12.5 mg (1/2 x 25 mg) PO DAILY see 11/08/23 05/07/24 Rx physicia #45 tabs trazodone 50 mg tablet 25 mg PO QHS PRN insomnia 11/08/23 Unknown History cephalexin 250 mg capsule 750 mg PO BID infection 05/07/24 05/07/24 History ciprofloxacin HCl 750 mg tablet 750 mg PO BID infection 05/07/24 05/07/24 History insulin degludec 200 unit/mL (3 72 unit subcut BID diabetes 05/07/24 Unknown History mL) subcutaneous pen (Tresiba FlexTouch U-200 insulin) sennosides 8.6 mg tablet (Senokot) 8.6 mg PO DAILY PRN consti 05/07/24 Unknown History Allergy/AdvReac Type Severity Reaction Status Date / Time perflutren (From Definity) Allergy Intermediate Severe Verified 05/07/24 11:10 back and hip pain adhesive AdvReac Intermediate Other Verified 05/09/24 11:31 Family History Mother Colon cancer Grandmother Diabetes Surgical History History of left heart catheterization (LHC) (~06/18/21) Status post amputation of toe S/P cataract extraction S/P laparoscopic cholecystectomy Social History Smoking Status: Former smoker how long ago did patient quit smoking: Used to smoke occasional cigar second hand exposure: Yes alcohol intake: current alcohol intake frequency: a few times a month substance use type: does not use caffeine: Yes Type: coffee and tea Review of Systems (Anesthesia) ROS Narrative System reviewed and no additional complaints, except as documented.
[2024-05-09 11:49] LABS: Bedside Glucose 107 mg/dL (74-106)
--- NOTE | 2024-05-09 12:00 | AMP_PTH ---
PATIENT: OLY SMITH LOC: MS3 U#:[id number] AGE/SX: 63/M [place] [facility] [place]: Dr. Lizabeth Galicia MD : 1960 BED: 1 DIS: 05/10/2024 SPEC #: [id number] RECD: 05/09/24 16:59 STATUS: CIPRIANO CERNA #: [id number] RHETT: 05/09/24 12:[address]: Murtaza Morales DEPT: SURGICAL PATHOLOGY RECD BY: Sherrell Braswell ENTERED: 05/10/24 09:10 SP TYPE: Amputation OTHR DR: MD Dr. Matias Martinez MD Dr. Michael Marshall, BRITTANYM MD Dr. Virgil Bernal MD Tissues: Toe, NOS Procedures: Decalcification bone/plaque Surgery Specimen Level IV HEADER OPERATION: Amputation toe, 2nd PRE-OP DIAGNOSIS: Right 2nd toe ostemyelital with ulcer, cellulitis, gangrene TISSUE SUBMITTED: Right second toe bone and tissue MICROSCOPIC DIAGNOSIS Right second toe bone and tissue, amputation: Focal ulceration, acute inflammation and abscess formation. Bone with acute osteomyelitis. / 05/16/2024 MICROSCOPIC DESCRIPTION Slides are reviewed. GROSS DESCRIPTION Received in fixative is one container labeled with the patient's name and designated Right 2nd toe. The specimen consists of a portion of toe measuring 3.0 x 1.5 x 1.8cm. The skin surface shows focal area of ulceration. The tip of the toe is congested. No nail is identified. Also present in the container is a detached piece of bone measuring 1.5 x 1.5 x 1.2cm. Sheet Metal Assembler sections are submitted in three cassettes as follows: 1- ulcerated area, 2&3- bone from toe and detached piece of bone after decalcification. Keven 05/10/2024 TC:2 CPT:86181,34089
--- NOTE | 2024-05-09 12:09 | PCM.OPRPT ---
Problems Associated Problem List Diagnoses (1) Type 2 diabetes mellitus with diabetic polyneuropathy: Report of Operation Date of Procedure: 05/09/24 Pre-Operative Diagnosis: Right second toe osteomyelitis Post-Operative Diagnosis: Same Surgery/Procedure Performed:: Right second toe amputation at level of metatarsophalangeal joint Description of Surgical Findings:: Patient admitted due to worsening necrotizing infection to the right second toe in setting of poorly controlled type 2 diabetes and peripheral neuropathy with hammertoe formation. Patient admitted for IV antibiotics and digital amputation. Patient recurrences there is no salvage her toe. Arterial studies were obtained. Calcified vessels noted to right lower extremity at the level dorsalis pedis posterior tibial pulses. Biphasic DP PT pulses though. Surgeon: Murtaza Morales ranch manager: None Type of Anesthesia: Local MAC Special Medications: Heparin Marcaine plain Specimen's removed: Right second toe for pathology culture, post lavage swab cultures Drains: None Estimated Blood Loss (mL): Minimal Description of Procedure: Patient brought back to the operating room placed comfortably supine position on operating room table. Patient induced under MAC anesthesia. Well-padded right ankle tourniquet applied. Right lower extremity was positioned, and external rotation. Right lower extremity scrubbed prepped draped using typical aseptic fashion. Right second toe amputation Right lower extremity was elevated exsanguinated tourniquet was inflated to 250 mmHg Once cleared by anesthesia a fishmouth incision was made full-thickness just distal to to the metatarsophalangeal joint with a 15 blade. Any bleeders identified cauterized. The second toe was disarticulated at the level of the metatarsophalangeal joint. It was passed the back table and splint half was sent for pathology and half was sent for microbiology for bone and tissue cultures. Site was flushed with copious amounts normal sterile saline. Posterior lung swab cultures were taken. Incisional site was then closed with simple interrupted 4-0 nylon. Dressed with Betadine Adaptic 4 x 4's Kerlix and lightly Augustus bandage. Tourniquet was let down prior to incisional closure. Patient transferred to PACU vital signs stable vascular status intact all digits for further monitoring prior to transfer back to the floor. Patient will continue receiving IV antibiotics. Infectious disease on the case. Will adjust antibiotics per culture and sensitivity. No complications noted. Will plan to restart blood thinners. Grafts/Implants Used: None Complications None Admit VTE Documentation VTE Present on Admission: Yes
[2024-05-09] MEDS: Bupivacaine Mpf 0.5% 30 ML VIAL (12:35)
--- NOTE | 2024-05-09 13:17 | PCM.POST.ANE ---
Anesthesia: Postop Eval I Current Vital Signs Temperature: 97 F Pulse Rate: 73 Blood Pressure: 118/73 Respiratory Rate: 18 Pulse Ox: 93 Assessment Airway patent: Yes Spontaneous unlabored respirations: Yes nausea: No Vomiting: No Anesthesia Complication: No Fluid Hydration Crystalloid volume administer (ml): 1,000 Total IV fluid infused: 1,000 Progress Note Anesthesia document: Postop Eval 1 completed: Yes
--- NOTE | 2024-05-09 13:30 | RAD_ITS ---
STUDY: X-RAY - RIGHT FOOT CLINICAL: Male, 63 years old. 2nd toe amputation. TECHNIQUE: 3 views of the right foot. COMPARISON: Right foot radiographs dated 05/07/2024. FINDINGS: There is new amputation of the second toe through the second MTP joint. Again seen is a flatfoot deformity. There is unchanged degenerative arthrosis in the midfoot. 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 Normal remainder of the metatarsi. There is unchanged irregularity of the tuft of the first digit. Normal metatarsophalangeal joint of the great toe. Normal tibial and fibular sesamoid bones. Normal interphalangeal joint of the great toe. Normal second through fourth metatarsophalangeal joints. Normal interphalangeal joints and phalanges of third and fourth toes. RAD/Foot min 3 Views IMPRESSION: New amputation of the second toe through the second MTP joint. Unchanged irregularity of the tuft of the first digit. Electronically Signed: Quentin Thomason MD at 15:55 EDT ,
--- NOTE | 2024-05-09 13:39 | POSTOPAN2_ITS ---
Anesthesia Postop Eval I Sum Postop Eval Completion status Anesthesia document: Postop Eval 1 completed: Yes Anesthesia Postop Eval I Summary Anesthesia Postop Eval I Summary: Anesthesia Postop Eval I: Assessment Summary Airway patent Yes 05/09/24 13:17 [email or web address] Spontaneous unlabored Yes 05/09/24 13:17 [email or web address] respirations Mental status nausea No 05/09/24 13:17 [email or web address] Vomiting No 05/09/24 13:17 [email or web address] Anesthesia Postop Eval I: Fluid Summary Crystalloid volume administer 1,000 05/09/24 13:17 [email or web address] (ml) Colloids volume administered ( ml) Blood Product volume administered (ml) Total IV fluid infused 1,000 05/09/24 13:17 [email or web address] Anesthesia Postop Eval I: Summary Notes Anesthesia Complication No 05/09/24 13:17 [email or web address] Anesthesia Complication Comment: Post-operative progress note Anesthesia: Postop Eval II Evaluation Mental status: Awake Pain Level: 0 nausea: No Vomiting: No
--- NOTE | 2024-05-09 13:39 | PCM.POSTANE2 ---
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 Spontaneous unlabored Yes 05/09/24 13:17 [email or web address] [email or web address] [email or web address] respirations Mental status nausea No 05/09/24 13:17 FIREWALL SECURITY [email or web address] Vomiting No 05/09/24 13:17 FIREWALL SECURITY [email or web address] Anesthesia Postop Eval I: Fluid Summary Crystalloid volume administer 1,000 05/09/24 13:17 FIREWALL SECURITY [email or web address] (ml) Colloids volume administered ( ml) Blood Product volume administered (ml) Total IV fluid infused 1,000 05/09/24 13:17 FIREWALL SECURITY [email or web address] Anesthesia Postop Eval I: Summary Notes Anesthesia Complication No 05/09/24 13:17 FIREWALL SECURITY [email or web address] Anesthesia Complication Comment: Post-operative progress note Anesthesia: Postop Eval II Evaluation Mental status: Awake Pain Level: 0 nausea: No Vomiting: No
--- NOTE | 2024-05-09 15:18 | CASEMGMT ---
KIKA ROD into pt room, pt states surgery went well and he feels well. Discussed PCP and asked pt if he would like KIKA ROD to set up a new PCP that he chose from list given yesterday. Pt states he called his doctor and he still is being seen by him. He states he was told as long as he has been seen within 3 years that the physician would still follow. Pt sees . Pt has made an upcoming appt for Jun 16 at 1020. Updated [employer].
[2024-05-09] MEDS: Glucerna Shake 120 ML LIQUID PO (16:40)
[2024-05-09] MEDS: Insulin Lispro 100 UNIT/ML INSULN.PEN SC ×2 (16:40→22:05)
[2024-05-09 17:31] LABS: Bedside Glucose 328 mg/dL (74-106)
[2024-05-09] MEDS: SACUBITRIL/VALSARTAN 49-51 MG TABLET 1 EACH PO (21:59)
[2024-05-09] MEDS: Carvedilol 6.25 MG Tablet PO (21:59)
[2024-05-09] MEDS: Insulin Glargine-YFGN 100 UNIT/ML Pen 72 UNIT SC (22:02)
[2024-05-10 00:12] LABS: Bedside Glucose 228 mg/dL (74-106)
[2024-05-10] MEDS: Vancomycin HCl 1,750 MG in 0.9% Normal Saline (500mL Bag) 500 ML 250 MG IV ×2 (02:14→14:19)
[2024-05-10 02:15] VITALS: BP 141/65; PULSE 80; RESP 18; TEMP 36.8; O2SAT 98
[2024-05-10] MEDS: Piperacil/Tazobactam 3.375 GM in 0.9% Normal Saline (50mL MB+) 50 ML IV (05:45)
--- NOTE | 2024-05-10 06:20 | PCM.PN.HOSP ---
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 (05/07/24) Objective Data Objective Data Vital Signs: Vital Signs Temp Pulse Resp BP Pulse Ox O2 Del Method 98.3 F 80 18 141/65 H 98 Room Air 05/10/24 02:15 05/10/24 02:15 05/10/24 02:15 05/10/24 02:15 05/10/24 02:15 05/10/24 02:15 Oxygen Delivery Method Room Air Weight: 257 lb 4.471 oz Body Mass Index (BMI) 39.1 Intake & Output: Intake and Output for Last 24 Hours 05/08/24 05/09/24 05/10/24 23:59 23:59 23:59 Intake Total 1820 / 1820 2949.5 / 2949.5 585 / 585 Output Total 600 / 600 Balance 1220 / 1220 2949.5 / 2949.5 585 / 585 Lab / Micro Data 05/09/24 06:12 05/09/24 06:12 Labs: Laboratory Results - last 24 hr 05/09/24 06:12: WBC 4.7, RBC 4.79, Hgb 14.0, Hct 44.5, MCV 92.9, MCH 29.2, MCHC 31.5 L, RDW Std Deviation 44.1 H, RDW Coeff of Kylee 12.8, Plt Count 194, MPV 9.4, Immature Gran % (Auto) 0.200, Neut % (Auto) 52.6, Lymph % (Auto) 32.6, Christian % (Auto) 9.0, Eos % (Auto) 4.3, Baso % (Auto) 1.3 H, Absolute Neuts (auto) 2.5, Absolute Lymphs (auto) 1.53, Nucleated RBC % 0, Sodium 140, Potassium 3.8, Chloride 109 H, Carbon Dioxide 26.0, Anion Gap 5, BUN 20 H, Creatinine 0.82, Estim Creat Clear Calc 117.38, Est GFR (MDRD) Af Amer 124, Est GFR (MDRD) Non-Af 102, BUN/Creatinine Ratio 24.5 H, Glucose 142 H, Calcium 8.8, Total Bilirubin 0.50, AST 15, ALT 12 L, Alkaline Phosphatase 96, Total Protein 6.8, Albumin 3.0 L, Globulin 3.8, Albumin/Globulin Ratio 0.8 L 05/09/24 06:50: POC Glucose 132 H 05/09/24 11:29: POC Glucose 107 H 05/09/24 16:39: POC Glucose 328 H 05/09/24 21:50: POC Glucose 228 H Micro: Microbiology 05/07/24 12:13 Blood Culture (Wb) - Left Forearm Blood Culture - Preliminary No growth in 48 hours. 05/07/24 12:00 Wound - Left Foot Gram Stain - Final 05/07/24 12:00 Wound - Left Foot Wound Culture - Preliminary Coag Negative Staph Beta streptococcus Radiography Diagnostic Testing: Radiology Impression Extremity Arterial Study 05/07/24 16:27 Interpretation Summary Biphasic Doppler waveforms are noted at ankle level on the right. Triphasic Doppler waveforms are noted at ankle level on the left. Pulse-volume recordings appear diminished at digital level on the right, but satisfactory at all other levels bilaterally. Resting ankle-brachial indices could not be determined on either side due to the non-compressibility of the vasculature at ankle level bilaterally. The right digital-brachial index could not be determined due to the presence of wounds. The left digital-brachial index is mildly diminished. There is evidence of arterial calcification at ankle level bilaterally. The degree of arterial occlusive disease in the right lower extremity is not quantified due to the non-compressibility of the vasculature at ankle level, and the fact that a digital-brachial index was not determined due to the presence of wounds. Arterial flow appears to be normal at ankle level on the left. There is evidence of mild arterial occlusive disease at digital level on the left. Ordering Physician: Kp Mendosa Performed By: Ruth Harris, RVT Foot X-Ray 05/09/24 13:30 IMPRESSION: New amputation of the second toe through the second MTP joint. Unchanged irregularity of the tuft of the first digit. Electronically Signed: Quentin Thomason MD at 15:55 EDT , Physical Exam Narrative Physical Examination: General: Awake, alert, oriented x 3 and cooperative, seated upright in MS bed, no acute distress, no acute complaints. Skin: Normal color, normal turgor, no icterus, no cyanosis except bilateral lower extremity venous stasis skin changes as well as right second toe necrotic appearance with erythema, edema although improved from admission with decreased warmth, still malodorous. HEENT: AT/NC, EOMI, PERRLA, MMM, large facial tse. Lungs: Mild diminished, greater bases, appropriate effort, no rales, ronchi or wheezing. Heart: Regular rate and rhythm; no gallop, rub audible. Abdomen: Soft, morbidly obese, NTTP, ND, normal BS. Extremities: No cyanosis, no clubbing, see skin. Neurological: Patient awake, alert, oriented as noted, cognitive function intact; pupils equally reactive to light and accommodation, cranial nerves grossly normal, moving all 4 extremities, no focal deficits, strength mildly to moderately globally decreased. Psychiatric: Affect appears fatigued otherwise normal, no acute evidence of depressive or anxiety feelings. Assessment & Plan Assessment/Plan (1) Osteomyelitis of toe: PLAN: Plan The patient is a 63 y/o M w/ PMHx: Morbid obesity, Former tobacco use, Nonobstructive CAD, HTN, HLD, PVD, Diabetes mellitus type II with chronic polyneuropathy, Cardiomyopathy unclear type/HFmildly reduced EF who presents to the [facility] ED on 05/07/24 with history of ongoing right second toe ulceration following with Dr. Morales and podiatric medicine with worsened appearance despite oral antibiotic therapy initially superficial blister progressively worsening becoming black in color necrotic with surrounding cellulitis prompting ED referral. #1. Right second toe diabetic wound, ulceration with cellulitis with concern for acute osteomyelitis of the distal second toe: In the ED plain film of the foot with new lucency and irregularity of the distal phalanx of the second toe concerning for acute osteomyelitis, CBC with WBC 7.1, human 15.3, platelets 219 without marked shift, ESR 65, CRP 16.10, glucose upon presentation 185, magnesium 2.5, lactic acid 1.1 admitted to medical surgical floor, maintain on IV vancomycin and IV Zosyn, requested wound Cx and wound MRSA PCR, continue affected extremity elevation above heart when seated and in bed, monitor erythema outline with VS checks, continue consultation with podiatric medicine, infectious disease consult, planned OR 05/09/2024 with potentially right second toe amputation plus or minus second metatarsal head resection. 05/08/2024 ANALILIA/PVR with biphasic dorsalis pedis posterior tibial pulses with calcified vessels at the level of the ankle involving the PT and DP arteries. Plan for 05/09/24 OR right second toe amputation +/- second metatarsal head pending appearance of bone during operative intervention. Following this likely will need PICC placement for longer-term antibiotic therapy but will wait OR report and repeat evaluation per infectious disease. #2. 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 #3. CAD: Noted in history, from cardiology note cardiac catheterization 06/18/2021 with significantly reduced severe global LV systolic dysfunction with EF 20% at that time with nonobstructive coronary arteries with mild luminal irregularities only, continue aspirin, Coreg, Entresto not on a statin therapy, attempted to clarify. #4. Cardiomyopathy, unclear type/HF mildly reduced EF, improved from prior reduced EF of 20%: Most recent evaluation noted 06/08/2021 cardiac catheterization with 20% EF at that time, clinically improved with most recent echocardiogram 06/24/2022 w/ mild dilated LV, mild global LV systolic dysfunction, EF 45%, moderately enlarged LA, mild focal AV calcification, continue aspirin, Coreg, Entresto, spironolactone, Lasix home regimen, judicious hydration only if necessary. Not on statin therapy. #5. Hypertension: Continue home regimen including Coreg, Lasix, Entresto, spironolactone with hold parameters as needed, PRN hydralazine. #6. Hyperlipidemia: Per current list and per most recent cardiology visit patient is not on statin therapy. #7. Morbid Obesity: Weight loss and lifestyle changes encouraged. #8. Former tobacco use: Encourage continued tobacco use, #9. DVT prophylaxis: Lovenox.
--- NOTE | 2024-05-10 06:21 | PCM.PN.HOSP ---
Reason for Visit Reason for Visit: Diagnoses Type 2 diabetes mellitus with diabetic polyneuropathy (05/07/24) Type 2 diabetes mellitus with other skin complications (05/07/24) Type 2 diabetes mellitus without complications (05/07/24) Local infection of the skin and subcutaneous tissue, unspecified (05/07/24) Osteomyelitis, unspecified (05/07/24) half-way (current) use of insulin (05/07/24) Subjective Subjective Patient with no acute events overnight per self and per nursing report. He notes pain controlled status post OR. He has been up and moving however discussed at length with him podiatry preference for nonweightbearing status to the right lower extremity with usage of scooter and heel bearing weight only for transfers in addition to planned continued current postoperative dressing to remain clean and dry and intact until follow-up with podiatry on Tuesday. Discussed current plan of care which included fortunately transition to oral antibiotic therapies per Dr. Pike with discharge to home to which patient is amenable. Patient denies fevers, chills, nausea, emesis, abdominal pain, chest pain or dyspnea. Objective Data Objective Data Vital Signs: Vital Signs Temp Pulse Resp BP Pulse Ox O2 Del Method 98.3 F 80 18 141/65 H 98 Room Air 05/10/24 02:15 05/10/24 02:15 05/10/24 02:15 05/10/24 02:15 05/10/24 02:15 05/10/24 02:15 Oxygen Delivery Method Room Air Weight: 257 lb 4.471 oz Body Mass Index (BMI) 39.1 Intake & Output: Intake and Output for Last 24 Hours 05/08/24 05/09/24 05/10/24 23:59 23:59 23:59 Intake Total 1820 / 1820 2949.5 / 2949.5 585 / 585 Output Total 600 / 600 Balance 1220 / 1220 2949.5 / 2949.5 585 / 585 Lab / Micro Data 05/10/24 06:13 05/10/24 06:13 Labs: Laboratory Results - last 24 hr 05/09/24 06:12: WBC 4.7, RBC 4.79, Hgb 14.0, Hct 44.5, MCV 92.9, MCH 29.2, MCHC 31.5 L, RDW Std Deviation 44.1 H, RDW Coeff of Kylee 12.8, Plt Count 194, MPV 9.4, Immature Gran % (Auto) 0.200, Neut % (Auto) 52.6, Lymph % (Auto) 32.6, Howard % (Auto) 9.0, Eos % (Auto) 4.3, Baso % (Auto) 1.3 H, Absolute Neuts (auto) 2.5, Absolute Lymphs (auto) 1.53, Nucleated RBC % 0, Sodium 140, Potassium 3.8, Chloride 109 H, Carbon Dioxide 26.0, Anion Gap 5, BUN 20 H, Creatinine 0.82, Estim Creat Clear Calc 117.38, Est GFR (MDRD) Af Amer 124, Est GFR (MDRD) Non-Af 102, BUN/Creatinine Ratio 24.5 H, Glucose 142 H, Calcium 8.8, Total Bilirubin 0.50, AST 15, ALT 12 L, Alkaline Phosphatase 96, Total Protein 6.8, Albumin 3.0 L, Globulin 3.8, Albumin/Globulin Ratio 0.8 L 05/09/24 06:50: POC Glucose 132 H 05/09/24 11:29: POC Glucose 107 H 05/09/24 16:39: POC Glucose 328 H 05/09/24 21:50: POC Glucose 228 H Micro: Microbiology 05/07/24 12:13 Blood Culture (Wb) - Left Forearm Blood Culture - Preliminary No growth in 48 hours. 05/07/24 12:00 Wound - Left Foot Gram Stain - Final 05/07/24 12:00 Wound - Left Foot Wound Culture - Preliminary Coag Negative Staph Beta streptococcus Radiography Diagnostic Testing: Radiology Impression Extremity Arterial Study 05/07/24 16:27 Interpretation Summary Biphasic Doppler waveforms are noted at ankle level on the right. Triphasic Doppler waveforms are noted at ankle level on the left. Pulse-volume recordings appear diminished at digital level on the right, but satisfactory at all other levels bilaterally. Resting ankle-brachial indices could not be determined on either side due to the non-compressibility of the vasculature at ankle level bilaterally. The right digital-brachial index could not be determined due to the presence of wounds. The left digital-brachial index is mildly diminished. There is evidence of arterial calcification at ankle level bilaterally. The degree of arterial occlusive disease in the right lower extremity is not quantified due to the non-compressibility of the vasculature at ankle level, and the fact that a digital-brachial index was not determined due to the presence of wounds. Arterial flow appears to be normal at ankle level on the left. There is evidence of mild arterial occlusive disease at digital level on the left. Ordering Physician: Kp Mendosa Performed By: Ruth Harris, RVT Foot X-Ray 05/09/24 13:30 IMPRESSION: New amputation of the second toe through the second MTP joint. Unchanged irregularity of the tuft of the first digit. Electronically Signed: Quentin Thomason MD at 15:55 EDT , Physical Exam Narrative Physical Examination: General: Awake, alert, oriented x 3 and cooperative, seated upright in MS bed, no acute distress, no acute complaints. Skin: Normal color, normal turgor, no icterus, no cyanosis except bilateral lower extremity venous stasis skin changes, status post OR with dressing in place to the right lower extremity without drainage. HEENT: AT/NC, EOMI, PERRLA, MMM, large facial tse. Lungs: Mild diminished, greater bases, appropriate effort, no rales, ronchi or wheezing. Heart: Regular rate and rhythm; no gallop, rub audible. Abdomen: Soft, morbidly obese, NTTP, ND, normal BS. Extremities: No cyanosis, no clubbing, see skin. Neurological: Patient awake, alert, oriented as noted, cognitive function intact; pupils equally reactive to light and accommodation, cranial nerves grossly normal, moving all 4 extremities, no focal deficits, strength improved, mildly global decreased, encouraged heel transition only with nonweightbearing to the right lower extremity with usage of scooter. Psychiatric: Affect appears interactive, eager for discharge, no acute evidence of depressive or anxiety feelings. Assessment & Plan Assessment/Plan (1) Osteomyelitis of toe: PLAN: Plan The patient is a 63 y/o M w/ PMHx: Morbid obesity, Former tobacco use, Nonobstructive CAD, HTN, HLD, PVD, Diabetes mellitus type II with chronic polyneuropathy, Cardiomyopathy unclear type/HFmildly reduced EF who presents to the [facility] ED on 05/07/24 with history of ongoing right second toe ulceration following with Dr. Morales and podiatric medicine with worsened appearance despite oral antibiotic therapy initially superficial blister progressively worsening becoming black in color necrotic with surrounding cellulitis prompting ED referral. #1. Right second toe diabetic wound, ulceration with cellulitis with concern for acute osteomyelitis of the distal second toe: In the ED plain film of the foot with new lucency and irregularity of the distal phalanx of the second toe concerning for acute osteomyelitis, CBC with WBC 7.1, human 15.3, platelets 219 without marked shift, ESR 65, CRP 16.10, glucose upon presentation 185, magnesium 2.5, lactic acid 1.1 admitted to medical surgical floor, maintain on IV vancomycin and IV Zosyn, requested wound Cx and wound MRSA PCR, continue affected extremity elevation above heart when seated and in bed, monitor erythema outline with VS checks, continue consultation with podiatric medicine, infectious disease consult, planned OR 05/09/2024 with potentially right second toe amputation plus or minus second metatarsal head resection. 05/08/2024 ANALILIA/PVR with biphasic dorsalis pedis posterior tibial pulses with calcified vessels at the level of the ankle involving the PT and DP arteries. Plan for 05/09/24 OR right second toe amputation +/- second metatarsal head pending appearance of bone during operative intervention. 05/10/2024 per discussion with podiatry at this time no necessity for PICC line, plan discharge on oral Augmentin and oral linezolid however if wound cultures from operative intervention and margins become a concern then may need to lengthen antibiotic regimen and have follow-up with infectious disease which will be delineated to podiatry given they will follow-up with them outpatient. 05/10/2024 podiatry request for nonweightbearing status to the right lower extremity with heel bearing for transfers only and usage of scooter with dressing to remain clean and dry/intact with plan follow-up on Tuesday with dressing to be removed and changed at that time. 05/10/2024 plan discharge to home with home health. #2. Diabetes mellitus type II with chronic polyneuropathy, uncontrolled: Hold oral home regimen, continue home long-acting insulin regimen, ADA diet, accu checks w/ ISS, per current list not on any chronic gabapentin but if necessary may consider adding, nutrition consulted for education and teaching, hemoglobin A1c 10.1%. 05/10/2024 upon discharge patient will be continued on long-acting hospital insulin in addition to hospital insulin sliding scale as patient has not had this regimen for some time and currently appears more maintained on this regimen. Encouraged early PCP follow-up. #3. CAD: Noted in history, from cardiology note cardiac catheterization 06/18/2021 with significantly reduced severe global LV systolic dysfunction with EF 20% at that time with nonobstructive coronary arteries with mild luminal irregularities only, continue aspirin, Coreg, Entresto not on a statin therapy, attempted to clarify. #4. Cardiomyopathy, unclear type/HF mildly reduced EF, improved from prior reduced EF of 20%: Most recent evaluation noted 06/08/2021 cardiac catheterization with 20% EF at that time, clinically improved with most recent echocardiogram 06/24/2022 w/ mild dilated LV, mild global LV systolic dysfunction, EF 45%, moderately enlarged LA, mild focal AV calcification, continue aspirin, Coreg, Entresto, spironolactone, Lasix home regimen, judicious hydration only if necessary. Not on statin therapy. #5. Hypertension: Continue home regimen including Coreg, Lasix, Entresto, spironolactone with hold parameters as needed, PRN hydralazine. #6. Hyperlipidemia: Per current list and per most recent cardiology visit patient is not on statin therapy. #7. Morbid Obesity: Weight loss and lifestyle changes encouraged. #8. Former tobacco use: Encourage continued tobacco use, #9. DVT prophylaxis: Lovenox. Charges/Coding Visit Charges Inpatient E&M: 91126 Subs Hosp L2
[2024-05-10 07:05] LABS: Absolute Lymphocyte Count 1.41 X10^3/uL (0.83-4.51); Absolute Neutrophil Count 3.9 X10^3/uL (2.0-7.7); Basophil# 0.06 X10^3/uL; Eosinophil# 0.16 X10^3/uL; Eosinophils% 2.7 % (0-5); Hematocrit 43.7 % (40-54); Hemoglobin 13.6 g/dL (13.0-16.5); Lymphocyte # 1.41 X10^3/ul (0.83-4.51); Lymphocyte % 23.5 % (19-41); Mean Corp Hgb Conc 31.1 g/dL (32-36); Mean Corpuscular Hgb 29.3 pg (27.0-32.0); Mean Corpuscular Volume 94.2 fL (80-94); Mean Platelet Vol. 9.6 fl (6.2-12.0); Monocyte# 0.47 X10^3/uL; Monocyte% 7.8 % (0-10); NRBC Flagged by Analyzer 0 % (0-5); Neutrophil # 3.89 X10^3/uL (2.7-7.7); Neutrophil % 64.7 % (47-70); Platelet Count 202 K/mm3 (150-450); RBC Distribution Width CV 12.8 % (11.6-14.6); RBC Distribution Width SD 44.1 fl (35.1-43.9); Red Blood Count 4.64 M/mm3 (4.6-6.2)
[2024-05-10 07:07] LABS: Bedside Glucose 217 mg/dL (74-106)
[2024-05-10 07:28] LABS: ALB/GLOB Ratio 0.8 RATIO (0.9-2.4); AST(SGOT) 12 U/L (15-37); Alanine Aminotransfer ALT/SGPT 14 U/L (16-61); Albumin, Serum 2.9 g/dL (3.2-5.0); Alkaline Phosphatase 105 U/L (45-117); Anion Gap 4 (5-15); BUN 20 mg/dL (7-18); BUN/Creat Ratio 21.4 RATIO (10-20); Calcium,Total 8.7 mg/dL (8.5-10.1); Chloride 107 mmol/L (98-107); Creatinine, Serum 0.93 mg/dL (0.70-1.30); EST Glomerular Filtration Rate 87 mL/min (>60); Est Glom Filt Rate - Afr Amer 106 mL/min (>60); Estimated Creatinine Clearance 103.49 ml/min; Globulin 3.7 g/dL (2.2-4.2); Glucose 242 mg/dL (74-106); Potassium 4.3 mmol/L (3.5-5.1); Protein, Total 6.6 g/dL (6.4-8.2); Sodium Level 138 mmol/L (136-145)
--- NOTE | 2024-05-10 08:55 | NURSING ---
talked with Sophia BARCENAS regarding PICC order, manager access notified.
[2024-05-10 09:21] VITALS: BP 135/77; PULSE 78; RESP 18; TEMP 36.7; O2SAT 98
[2024-05-10] MEDS: Furosemide 20 MG Tablet PO (09:27)
[2024-05-10] MEDS: Carvedilol 6.25 MG Tablet PO (09:27)
[2024-05-10] MEDS: Spironolactone 25 MG Tablet 12.5 MG PO (09:27)
[2024-05-10] MEDS: SACUBITRIL/VALSARTAN 49-51 MG TABLET 1 EACH PO (09:27)
[2024-05-10] MEDS: Aspirin 81 MG TAB.CHEW PO (09:27)
[2024-05-10] MEDS: Insulin Glargine-YFGN 100 UNIT/ML Pen 72 UNIT SC (09:28)
[2024-05-10] MEDS: Insulin Lispro 100 UNIT/ML INSULN.PEN SC ×3 (09:30→16:14)
--- NOTE | 2024-05-10 10:24 | WOUNDNOTE ---
wound photo: right 2nd toe
--- NOTE | 2024-05-10 10:52 | PN.ID_ITS ---
Physical Exam Narrative Feeling well, no fever, no n/v/d. Const alert and no apparent distress General Appearance: cooperative Resp normal air movement and clear to auscultation bilaterally Cardio regular rate and regular rhythm GI soft to palpation, non-tender and non-distended Skin Skin Narrative: reviewed wound photos ID ID: Route of nutrition/ use of supplements: [] Nutritional Intake: [] IV Site: [] White Catheter: [] Assessment & Plan Assessment/Plan (1) Osteomyelitis of toe: PLAN: R 2nd toe gangrene, podiatry consulted, wound cx here with strep and CoNS, has been on empiric vanc/zosyn. Recent wound cx with serratia, GBS, staph epi, enterococcus, and anaerobes. Taken to OR 05/09/24 for toe amp. Surg cx pending. Discussed options with him, will write for one week po linezolid and augmentin at discharge. If surg cx or path shows residual osteo, will need course extended and ID followup. Will follow as needed, d/w pillowcase folder (2) Diabetes mellitus:
--- NOTE | 2024-05-10 11:20 | CASEMGMT ---
Addendum entered by Leonard Eason 05/10/24 15:51: Per Valencia, 4 of pt's meds are too soon to be filled today: Coreg, lasix, Jardiance, and spironolactone. Pt made aware and also aware Rx's remain on-file @ [facility] retail pharmacy and will be available for him to pick them up later. He voices understanding. Total cost of all of the other medications are $37.90. Pt states this is affordable. Meds to be delivered to his room. Pharmacy aware. Noted insulin pen needles have not been prescribed. Dr Galicia made aware and sent rx's in for same. Addendum entered by Leonard Eason 05/10/24 15:48: Discussed CCN with pt and he is agreeable to referral. Order placed. Addendum entered by Leonard Eason 05/10/24 15:48: While KIKA ROD in room, pt received call from PCP's office and was informed Dr Graves is no longer in practice. Pt agreed to get established w/PCP Dr Rees, appt scheduled for 08/10 @ 11 AM. Appt also to be scheduled for next week as a hospital f/u visit w/[employer]MODAL [employer]PATCHER, Julie. Perez, special education secretary, working on this. Appt has been scheduled w/Dr Morales for Monday 05/14 @ 11:15 AM, per Ana. Addendum entered by Leonard Eason 05/10/24 15:19: Dr Galicia placed call to [phone] and Entresto was approved, auth # [id number]. Call placed to Valencia in the pharmacy, she re-sent it through, and verified it went through successfully. Addendum entered by Leonard Eason 05/10/24 14:56: Correction: Policy # is [id number] Addendum entered by Leonard Eason 05/10/24 14:53: Per Valencia @ [facility] pharmacy, Entresto one-time voucher has been used in the past and is showing this medication is non-formulary. Dr Galicia notified. Addendum entered by Leonard Eason 05/10/24 14:37: KIKA ROD spoke w/Patricia, PT, after eval completed. She states pt is unable to maintain NWB status on stairs, but is able to do well w/the scooter. Dr Galicia aware of inability for NWB status. Patricia did state pt may benefit from OP therapy for upper body strengthening. Script for OP therapy obtained from Dr Galicia and provided to pt. He was made aware he can take to any location of choice, he is not certain where he would like to go yet or if he will even go, and this will depend on what [id number] cost will be. Many meds were e-scribed to [facility] pharmacy, [facility] retail pharmacy, and [facility] by Dr Galicia. Pt states prefers to get them all @ [facility] retail pharmacy and would like them delivered to his room. Dr Galicia made aware and re-sent them all to [facility] retail pharmacy. Prior auth was obtained by Rayo for linezolid. Call placed Jass in the pharmacy, he re-sent it through, and verified it went through successfully. Original Note: KIKA ROD NOTE: Per Dr Pike, pt will discharge home on PO Atb, Linezolid. Per pharmacy, PA is required. Pt's policy # is: [id number]. PA # to call: [phone]. Pt in [employer] card game w/family. KIKA CM to [employer] and pt gave permission for RN VIOLA to talk w/him about discharge planning w/family present. Pt aware is to be NWB RLE and aware therapy to work w/him today. He states if therapy recommends additional therapy, he would be agreeable to doing OP therapy, he is not interested or feel the need for HHC. Pt confirms he has a knee scooter @ home. Per Dr Galicia, she has spoken w/Dr Morales and pt to keep dressing C/D/I until he f/u @ podiatry office on Tuesday and then will be given further wound care/dsg change instructions at that time. Pt states he needs new Rx's for insulins--Tresiba and novolog. Dr Galicia made aware of this and also need of pen needles. Further questions answered for pt and family. CM following for further discharge needs. Radha HAQUE RN CM
--- NOTE | 2024-05-10 11:55 | NURSING ---
called Dr. Fontenot office to obtain clarification on what insulin patient is suppose to be taking. Dr. Fontenot nurse states they have not seen the patient since 2021. primary RN updated and will discuss with pt
[2024-05-10] MEDS: Amox/Clavulanate 875 MG Tablet PO (12:27)
[2024-05-10 12:28] LABS: Bedside Glucose 227 mg/dL (74-106)
--- NOTE | 2024-05-10 12:46 | DCINST_ITS ---
Discharge Instructions Diet Discharge Diet: 1800 Calorie Control Diet Activity Discharge Activity: - (Use scooter, per podiatry strong recommendation nonweight bearing to the right foot, may use heel weight for transfers only.) May resume sexual activity in: No Restrictions Weight Bearing Status: No weight bearing (Right lower extremity as noted above.) Keep extremity elevated above heart level: Operative Extremity Dressing / Incision Call your doctor if your incision/area has: Continuous Slow Oozing, Sudden Increased Bleeding, Increased Pain/ Swelling, Increased Redness, Foul Smelling Discharge and Swelling at the incision site Call your doctor if you observe: Fever of 101 or Higher, Shortness of breath, Dizziness, Swelling in the ankles, Chest pain, Increased palpitations (irregular heartbeat), Calf discomfort and Uncontrolled pain Change Dressing in: leave in place till F/U (Podiatry will change dressing at follow-up on Tuesday. Keep clean and dry.) Follow Up Care Test Results: Test results from this visit will be discussed in further detail at your follow- up appointment, if applicable. Discharge Plan Admission Admit Date/Time: 05/07/24 14:22 Primary Reason for Your Visit: R 2nd toe diabetic foot wound/acute osteomyelitis, Uncontrolled diabetes Attending Provider: Lizabeth Galicia Primary Care Provider: Matias Graves Consulting Providers: Kp Mendosa; Virgil Pike; Dennis Payton Instructions Patient Instructions: Healthy Meals for Diabetes, Diabetes: Meal Planning, Insulin for Type 2 Diabetes Additional Instructions / Restrictions: ADDITIONAL CARE/FOLLOW-UP PLAN: #1. Right second toe diabetic wound, ulceration with cellulitis with acute osteomyelitis of the distal second toe: --ED plain film of the foot with new lucency and irregularity of the distal phalanx of the second toe concerning for acute osteomyelitis. --05/08/2024 ANALILIA/PVR with biphasic dorsalis pedis posterior tibial pulses with calcified vessels at the level of the ankle involving the PT and DP arteries. --OR 05/09/2024 with right second toe amputation per Dr. Morales Podiatry. --OR wound culture with serratia, GBS, staph epi, enterococcus, and anaerobes. --Upon discharge per Infectious Disease will plan course of oral augmentin and oral linezolid for an additional 7 day course; however, Dr. Pike notes that if the surgery cultures or pathology demonstrate residual osteomyelitis in any of the healthy appearing tissue then will need infectious disease follow-up and extended antibiotic course. Please continue to follow this assessment with Podiatry at follow-up. --Follow-up with Dr. Morales in his Podiatric office on 05/14/24 for re- evaluation and until this evaluation he has requested you maintain the operative dressing and keep it clean and dry with no water exposure. In addition, he requests that you maintain complete non-weight bearing to the R foot and use your scooter. He does allow heel weight bearing for transfers. #2. Diabetes mellitus type II with chronic polyneuropathy, uncontrolled: --HgbA1c which gives us an ideal of how controlled your blood sugars have been over the last ~ 3 months was notably elevated at 10%. --At discharge we have continued your home longacting which was used prior; however, we have continued the hospital utilized insulin sliding scale. IT IS IMPORTANT that you maintain an appropriate diabetic diet and DO NOT USE the insulin sliding scale as a crutch to eat unhealthy nondiabetic friendly foods. #3. CAD/Cardiomyopathy unclear type: --Refill on all your cardiac medications performed at discharge. Please assure that these continue to be filled with your primary care physician. Discharge Orders/Prescriptions Prescriptions: New linezolid 600 mg tablet 600 mg PO BID Qty: 14 0RF amoxicillin-pot clavulanate 875-125 mg tablet 1 tab PO BID Qty: 14 0RF aspirin 81 mg Tablet,Chewable 81 mg PO BREAKFAST 30 Days Qty: 30 0RF insulin lispro [Humalog KwikPen Insulin] 100 unit/mL Insulin Pen See Protocol subcut ACHS 30 Days Qty: 6 0RF Protocol: 3. Sliding Scale Insulin Med Dosing Condition: 150-189 mg/dl = 1 unit Condition: 190-229 mg/dl = 2 units Condition: 230-269 mg/dl = 3 units Condition: 270-309 mg/dl = 4 units Condition: 310-349 mg/dl = 5 units Condition: 350-399 mg/dl = 6 units Condition: 400-449 mg/dl = 7 units Condition: Greater than 449 call physician Protocol Text: Suggested for: - Patients on Total Daily Insulin Dose of 37-55 units - Obese, infected, or steroid patients MEDIUM DOSING ALGORITHIM Rx Instructions: Pharmacy: Please provide pen numbers to equivocate to the amount needed over 1 month (inpatient used 2-5 u per check) insulin glargine-yfgn 100 unit/mL (3 mL) Insulin Pen 72 unit subcut BID 30 Days Qty: 43.2 0RF Rx Instructions: Pharmacy: Please provide pen numbers to equivocate to the amount needed over 1 month. aspirin 81 mg tablet,chewable 81 mg PO DAILY 30 Days Qty: 30 0RF Continued sennosides [Senokot] 8.6 mg tablet 8.6 mg PO DAILY PRN (Reason: consti) furosemide [Lasix] 40 mg tablet 20 mg PO DAILY 30 Days Qty: 45 0RF metformin 500 mg tablet 1,000 mg PO BID 30 Days Qty: 120 0RF carvedilol 6.25 mg tablet 6.25 mg PO BID 30 Days Qty: 180 0RF Rx Instructions: must administer with a meal/food trazodone 50 mg tablet 25 mg PO QHS PRN 30 Days Qty: 15 0RF spironolactone 25 mg tablet 12.5 mg PO DAILY 30 Days Qty: 45 0RF glimepiride 2 mg tablet 2 mg PO DAILY 30 Days Qty: 30 0RF Jardiance 25 mg tablet 25 mg PO DAILY 30 Days Qty: 90 0RF Entresto 49-51 mg tablet 1 tab PO BID 30 Days Qty: 180 0RF Discontinued insulin aspart U-100 100 unit/mL (3 mL) insulin pen 25 unit SC .COMPLEX Rx Instructions: 25 units subcut ordered TID, usually BID; insulin degludec 100 unit/mL solution subcut .AC Rx Instructions: takes his own ssc based on what he is going to eat. states does not have a set ssc amount. cephalexin 250 mg capsule 750 mg PO BID ciprofloxacin HCl 750 mg tablet 750 mg PO BID insulin degludec [Tresiba FlexTouch U-200] 200 unit/mL (3 mL) insulin pen 72 unit subcut BID Referrals / Follow Up: Murtaza Morales DPM [Med Staff - Active Staff] - (Follow-up at Podiatry office on 05/14/[address] Morales request. ) Matias Graves MD [Primary Care Provider] - (Please follow-up with PCP to review admission/monitor medications and adjust as needed including insulin regimen within 3-5 days following discharge.) Disposition Disposition (needs filled in before D/C Order can be placed): Home Health Service
--- NOTE | 2024-05-10 12:48 | PCM.DC.SUM ---
Providers Date of Admission: 05/07/24 Date of Discharge: 05/10/24 Primary Care Physician: Dr. Matias Graves MD Consultations 05/07/24 15:59 Consult: Podiatry Routine Consulting Provider: Dennis Payton Reason for Consult: Rt 2nd toe OM with ulcer EMERGENT Consult: No Notified: Yes Date Notified: 05/07/24 Time Notified: 14:24 Method of Notification: ED Physician Initiated 05/07/24 16:28 Consult: Onc/Wound/cemetery manager Routine Comment: 05/08/24 06:54 Consult: Infectious Disease Routine Consulting Provider: Virgil Pike Reason for Consult: Diabetic foot wound/osteo EMERGENT Consult: No Notified: Yes Date Notified: 05/08/24 Time Notified: 06:54 Method of Notification: Text Reason For Visit: RIGHT 2ND TOE OSTEOMYELTIAL W/ ULCER, CELLULITIS Diagnosis Discharge Diagnosis (1) Osteomyelitis of toe: Status: Acute Code(s): M86.9 - Osteomyelitis, unspecified (2) Diabetes mellitus: Status: Acute Code(s): E11.9 - Type 2 diabetes mellitus without complications Plan: DISCHARGE DIAGNOSIS: #1. Right second toe diabetic wound, ulceration with cellulitis with concern for acute osteomyelitis of the distal second toe W/ wound culture with serratia, GBS, staph epi, enterococcus, and anaerobes #2. Diabetes mellitus type II with chronic polyneuropathy, uncontrolled #3. CAD #4. Cardiomyopathy, unclear type/HF mildly reduced EF, improved from prior reduced EF of 20% #5. Hypertension #6. Hyperlipidemia #7. Morbid Obesity #8. Former tobacco use Medications at Discharge Home Medications sennosides 8.6 mg tablet (Senokot) 8.6 mg PO DAILY PRN consti 05/07/24 amoxicillin 875 mg-potassium clavulanate 125 mg tablet 1 tab PO BID #14 tabs 05/10/24 aspirin 81 mg chewable tablet 81 mg PO BREAKFAST 30 days #30 tabs 05/10/24 aspirin 81 mg chewable tablet 81 mg PO DAILY 30 days #30 tabs 05/10/24 carvedilol 6.25 mg tablet 6.25 mg PO BID blood pressure/heart 30 days #180 tabs 05/10/24 empagliflozin 25 mg tablet (Jardiance) 25 mg PO DAILY diabetes 30 days #90 tabs 05/10/24 furosemide 40 mg tablet (Lasix) 20 mg (1/2 x 40 mg) PO DAILY water pill 30 days #45 tabs 05/10/24 glimepiride 2 mg tablet 2 mg PO DAILY diabetes 30 days #30 tabs 05/10/24 insulin glargine-yfgn 100 unit/mL (3 mL) subcutaneous pen 72 unit (0.72 mL) subcut BID 30 days #43.2 mL 05/10/24 insulin lispro 100 unit/mL subcutaneous pen (Humalog KwikPen (U-100) Insulin) See Protocol subcut ACHS 30 days #6 pens 05/10/24 linezolid 600 mg tablet 600 mg PO BID #14 tabs 05/10/24 metformin 500 mg tablet 1,000 mg (2 x 500 mg) PO BID diab 30 days #120 tabs 05/10/24 sacubitril 49 mg-valsartan 51 mg tablet (Entresto) 1 tab PO BID see physician 30 days #180 tabs 05/10/24 spironolactone 25 mg tablet 12.5 mg (1/2 x 25 mg) PO DAILY see physicia 30 days #45 tabs 05/10/24 trazodone 50 mg tablet 25 mg (1/2 x 50 mg) PO QHS PRN insomnia 30 days #15 tabs 05/10/24 Hospital Course Operations - (05/09/2024 with right second toe amputation per Dr. Morales Podiatry.) Procedures EKG and - (RLE ANALILIA/PVR) Summary of Care Provided Minutes Spent on Discharge: 35 Hospital Course: The patient is a 63 y/o M w/ PMHx: Morbid obesity, Former tobacco use, Nonobstructive CAD, HTN, HLD, PVD, Diabetes mellitus type II with chronic polyneuropathy, Cardiomyopathy unclear type/HFmildly reduced EF who presented to the [facility] ED on 05/07/24 with history of ongoing right second toe ulceration following with Dr. Morales and podiatric medicine with worsened appearance despite oral antibiotic therapy initially superficial blister progressively worsening becoming black in color necrotic with surrounding cellulitis prompting ED referral. In the ED plain film of the foot with new lucency and irregularity of the distal phalanx of the second toe concerning for acute osteomyelitis, CBC with WBC 7.1, human 15.3, platelets 219 without marked shift, ESR 65, CRP 16.10, glucose upon presentation 185, magnesium 2.5, lactic acid 1.1 admitted to medical surgical floor, maintain on IV vancomycin and IV Zosyn, requested wound Cx and wound MRSA PCR, continue affected extremity elevation above heart when seated and in bed, monitor erythema outline with VS checks, continue consultation with podiatric medicine, infectious disease consult, planned OR 05/09/2024 with potentially right second toe amputation plus or minus second metatarsal head resection. 05/08/2024 ANALILIA/PVR with biphasic dorsalis pedis posterior tibial pulses with calcified vessels at the level of the ankle involving the PT and DP arteries. Plan for 05/09/24 OR right second toe amputation +/- second metatarsal head pending appearance of bone during operative intervention. 05/10/2024 per discussion with podiatry at this time no necessity for PICC line, plan discharge on oral Augmentin and oral linezolid however if wound cultures from operative intervention and margins become a concern then may need to lengthen antibiotic regimen and have follow-up with infectious disease which will be delineated to podiatry given they will follow-up with them outpatient. 05/10/2024 podiatry request for nonweightbearing status to the right lower extremity with heel bearing for transfers only and usage of scooter with dressing to remain clean and dry/intact with plan follow-up on Tuesday with dressing to be removed and changed at that time. 05/10/2024 plan discharge to home with home health. During presentation held oral home regimen, continue home long-acting insulin regimen, ADA diet, accu checks w/ ISS, nutrition consulted for education and teaching, hemoglobin A1c 10.1%. 05/10/2024 upon discharge patient will be continued on long-acting hospital insulin in addition to hospital insulin sliding scale as patient has not had this regimen for some time and currently appears more maintained on this regimen. Upon discharge encouraged follow-up with PCP, Podiatry and did refill all patient medications as he has had lack of follow-up. Weight / BMI Weight Weight: 257 lb 4.471 oz Body Mass Index (BMI) 39.1 ABG / Lab / Microbiology Data 05/10/24 06:13 05/10/24 06:13 Laboratory: Laboratory Results - last 24 hr 05/09/24 16:39: POC Glucose 328 H 05/09/24 21:50: POC Glucose 228 H 05/10/24 06:13: WBC 6.0, RBC 4.64, Hgb 13.6, Hct 43.7, MCV 94.2 H, MCH 29.3, MCHC 31.1 L, RDW Std Deviation 44.1 H, RDW Coeff of Kylee 12.8, Plt Count 202, MPV 9.6, Immature Gran % (Auto) 0.300, Neut % (Auto) 64.7, Lymph % (Auto) 23.5, [place] % (Auto) 7.8, Eos % (Auto) 2.7, Baso % (Auto) 1.0, Absolute Neuts (auto) 3.9, Absolute Lymphs (auto) 1.41, Nucleated RBC % 0, Sodium 138, Potassium 4.3, Chloride 107, Carbon Dioxide 27.0, Anion Gap 4 L, BUN 20 H, Creatinine 0.93, Estim Creat Clear Calc 103.49, Est GFR (MDRD) Af Amer 106, Est GFR (MDRD) Non-Af 87, BUN/Creatinine Ratio 21.4 H, Glucose 242 H, Calcium 8.7, Total Bilirubin 0.30, AST 12 L, ALT 14 L, Alkaline Phosphatase 105, Total Protein 6.6, Albumin 2.9 L, Globulin 3.7, Albumin/Globulin Ratio 0.8 L 05/10/24 06:49: POC Glucose 217 H 05/10/24 12:04: POC Glucose 227 H Microbiology: Microbiology 05/09/24 13:08 Tissue - Toe Gram Stain - Final 05/09/24 13:08 Tissue - 2nd Toe Gram Stain - Final 05/07/24 12:00 Wound - Left Foot Gram Stain - Final 05/07/24 12:00 Wound - Left Foot Wound Culture - Preliminary Coag Negative Staph Streptococcus agalactiae (B) 05/07/24 12:13 Blood Culture (Wb) - Left Forearm Blood Culture - Preliminary No growth in 48 hours. Radiography Diagnostic Testing: Radiology Impression Extremity Arterial Study 05/07/24 16:27 Interpretation Summary Biphasic Doppler waveforms are noted at ankle level on the right. Triphasic Doppler waveforms are noted at ankle level on the left. Pulse-volume recordings appear diminished at digital level on the right, but satisfactory at all other levels bilaterally. Resting ankle-brachial indices could not be determined on either side due to the non-compressibility of the vasculature at ankle level bilaterally. The right digital-brachial index could not be determined due to the presence of wounds. The left digital-brachial index is mildly diminished. There is evidence of arterial calcification at ankle level bilaterally. The degree of arterial occlusive disease in the right lower extremity is not quantified due to the non-compressibility of the vasculature at ankle level, and the fact that a digital-brachial index was not determined due to the presence of wounds. Arterial flow appears to be normal at ankle level on the left. There is evidence of mild arterial occlusive disease at digital level on the left. Ordering Physician: Kp Mendosa Performed By: Ruth Harris [facility] Foot X-Ray 05/09/24 13:30 IMPRESSION: New amputation of the second toe through the second MTP joint. Unchanged irregularity of the tuft of the first digit. Electronically Signed: Quentin Thomason MD at 15:55 EDT Reading Location ID and State: [address] [place] [address] , Service support , D/C Instructions Discharge Diet: 1800 Calorie Control Diet May resume sexual activity in: No Restrictions Weight Bearing Status: No weight bearing (Right lower extremity as noted above.) Keep extremity elevated above heart level: Operative Extremity Call your doctor if your incision/area has: Continuous Slow Oozing, Sudden Increased Bleeding, Increased Pain/ Swelling, Increased Redness, Foul Smelling Discharge and Swelling at the incision site Call your doctor if you observe: Fever of 101 or Higher, Shortness of breath, Dizziness, Swelling in the ankles, Chest pain, Increased palpitations (irregular heartbeat), Calf discomfort and Uncontrolled pain Meaningful Use Info Meaningful Use Meaningful Use Diagnoses (Choose all that apply): None applicable Ischemic Stroke Statin Dosing Therapy Reference: STATIN DOSE THERAPY REFERENCE: * Patients > 75 years receive moderate or high dose statin therapy. * Patients 75 years or YOUNGER should receive HIGH intensity statin dose unless contraindicated. You will be required to document reason for non-treatment if statin daily dose does not meet guidelines. HIGH DOSE STATIN THERAPY DAILY Atorvastatin > than or = to 40 mg Rosuvastatin > than or = to 20 mg Amlodipine + Atorvastatin > than or = to 2.5/40 mg Ezetimibe + Simvastatin 10/80 mg Simvastatin 80mg Discharge Plan Admission Admit Date/Time: 05/07/24 14:22 Primary Reason for Your Visit: R 2nd toe diabetic foot wound/acute osteomyelitis, Uncontrolled diabetes Attending Provider: Lizabeth Galicia Primary Care Provider: Matias Graves Consulting Providers: Kp Mendosa; Virgil Pike; Dennis Payton Instructions Patient Instructions: Healthy Meals for Diabetes, Diabetes: Meal Planning, Insulin for Type 2 Diabetes Additional Instructions / Restrictions: ADDITIONAL CARE/FOLLOW-UP PLAN: #1. Right second toe diabetic wound, ulceration with cellulitis with acute osteomyelitis of the distal second toe: --ED plain film of the foot with new lucency and irregularity of the distal phalanx of the second toe concerning for acute osteomyelitis. --05/08/2024 ANALILIA/PVR with biphasic dorsalis pedis posterior tibial pulses with calcified vessels at the level of the ankle involving the PT and DP arteries. --OR 05/09/2024 with right second toe amputation per Dr. Morales Podiatry. --OR wound culture with serratia, GBS, staph epi, enterococcus, and anaerobes. --Upon discharge per Infectious Disease will plan course of oral augmentin and oral linezolid for an additional 7 day course; however, Dr. Pike notes that if the surgery cultures or pathology demonstrate residual osteomyelitis in any of the healthy appearing tissue then will need infectious disease follow-up and extended antibiotic course. Please continue to follow this assessment with Podiatry at follow-up. --Follow-up with Dr. Morales in his Podiatric office on 05/14/24 for re-evaluation and until this evaluation he has requested you maintain the operative dressing and keep it clean and dry with no water exposure. In addition, he requests that you maintain complete non-weight bearing to the R foot and use your scooter. He does allow heel weight bearing for transfers. #2. Diabetes mellitus type II with chronic polyneuropathy, uncontrolled: --HgbA1c which gives us an ideal of how controlled your blood sugars have been over the last ~ 3 months was notably elevated at 10%. --At discharge we have continued your home longacting which was used prior; however, we have continued the hospital utilized insulin sliding scale. IT IS IMPORTANT that you maintain an appropriate diabetic diet and DO NOT USE the insulin sliding scale as a crutch to eat unhealthy nondiabetic friendly foods. #3. CAD/Cardiomyopathy unclear type: --Refill on all your cardiac medications performed at discharge. Please assure that these continue to be filled with your primary care physician. Discharge Orders/Prescriptions Prescriptions: New linezolid 600 mg tablet 600 mg PO BID Qty: 14 0RF amoxicillin-pot clavulanate 875-125 mg tablet 1 tab PO BID Qty: 14 0RF aspirin 81 mg Tablet,Chewable 81 mg PO BREAKFAST 30 Days Qty: 30 0RF insulin lispro [Humalog KwikPen Insulin] 100 unit/mL Insulin Pen See Protocol subcut ACHS 30 Days Qty: 6 0RF Protocol: 3. Sliding Scale Insulin Med Dosing Condition: 150-189 mg/dl = 1 unit Condition: 190-229 mg/dl = 2 units Condition: 230-269 mg/dl = 3 units Condition: 270-309 mg/dl = 4 units Condition: 310-349 mg/dl = 5 units Condition: 350-399 mg/dl = 6 units Condition: 400-449 mg/dl = 7 units Condition: Greater than 449 call physician Protocol Text: Suggested for: - Patients on Total Daily Insulin Dose of 37-55 units - Obese, infected, or steroid patients MEDIUM DOSING ALGORITHIM Rx Instructions: Pharmacy: Please provide pen numbers to equivocate to the amount needed over 1 month (inpatient used 2-5 u per check) insulin glargine-yfgn 100 unit/mL (3 mL) Insulin Pen 72 unit subcut BID 30 Days Qty: 43.2 0RF Rx Instructions: Pharmacy: Please provide pen numbers to equivocate to the amount needed over 1 month. aspirin 81 mg tablet,chewable 81 mg PO DAILY 30 Days Qty: 30 0RF Continued sennosides [Senokot] 8.6 mg tablet 8.6 mg PO DAILY PRN (Reason: consti) furosemide [Lasix] 40 mg tablet 20 mg PO DAILY 30 Days Qty: 45 0RF metformin 500 mg tablet 1,000 mg PO BID 30 Days Qty: 120 0RF carvedilol 6.25 mg tablet 6.25 mg PO BID 30 Days Qty: 180 0RF Rx Instructions: must administer with a meal/food trazodone 50 mg tablet 25 mg PO QHS PRN 30 Days Qty: 15 0RF spironolactone 25 mg tablet 12.5 mg PO DAILY 30 Days Qty: 45 0RF glimepiride 2 mg tablet 2 mg PO DAILY 30 Days Qty: 30 0RF Jardiance 25 mg tablet 25 mg PO DAILY 30 Days Qty: 90 0RF Entresto 49-51 mg tablet 1 tab PO BID 30 Days Qty: 180 0RF Discontinued insulin aspart U-100 100 unit/mL (3 mL) insulin pen 25 unit SC .COMPLEX Rx Instructions: 25 units subcut ordered TID, usually BID; insulin degludec 100 unit/mL solution subcut .AC Rx Instructions: takes his own ssc based on what he is going to eat. states does not have a set ssc amount. cephalexin 250 mg capsule 750 mg PO BID ciprofloxacin HCl 750 mg tablet 750 mg PO BID insulin degludec [Tresiba FlexTouch U-200] 200 unit/mL (3 mL) insulin pen 72 unit subcut BID Referrals / Follow Up: Crow Rees MD [Non-Staff] - 05/29/24 1:20 pm (With EMERGENCY MEDICAL SERVICE COORDINATOR, Cathy Barnettlogrenato, for Dr Rees. This appt is to get established as a new-patient) Murtaza Morales DPM [Med Staff - Active Staff] - 05/14/24 11:15 am (Follow-up at Podiatry office on 05/14/[address] oMrales request. ) Matias Graves MD [Primary Care Provider] - (Please follow-up with PCP to review admission/monitor medications and adjust as needed including insulin regimen within 3-5 days following discharge.) Disposition Disposition (needs filled in before D/C Order can be placed): Home Health Service Charges/Coding Visit Charges Inpatient E&M: 04898 Disch Hosp >30min
--- NOTE | 2024-05-10 13:19 | CASEMGMT ---
This RN CM talked to the Prior authorization professional regarding the pt Linezolid. The medication was approved at this time. Report given to MS3 KIKA ROD.
[2024-05-10] MEDS: 0.9% Saline Lock 10 ML Syringe IV (14:19)
[2024-05-10] MEDS: Ibuprofen 400 MG Tablet 800 MG PO (14:27)
[2024-05-10 14:29] VITALS: BP 180/71; PULSE 64; RESP 18; TEMP 36.4; O2SAT 100
--- NOTE | 2024-05-10 15:55 | CASEMGMT ---
Social Work SW met with pt and inquired about advance directives. Pt is uncertain if he has completed this documentation. SW offered to provide additional information and pt declined at this time. NICHELLE Bowers
[2024-05-10 16:48] LABS: Bedside Glucose 263 mg/dL (74-106)
--- NOTE | 2024-05-22 11:41 | CCN.REFER ---
PATIENT ADMANTLY DECLINING CCN AND/OR PATIENT LINK DEVICE IN HOME.
== END 2024-05-10 17:49 | disposition home or self-care (01) | DRG 617 ==
LOC: ED 14:04 → MS3 15:29
PROVIDERS: Podiatrist; Admitting Provider Internal Medicine; Emergency Provider Emergency Medicine; PCP Family Medicine; Visit Provider Family Medicine
PROC: 0Y6R0Z0 Detachment at Right 2nd Toe, Complete, Open Approach (ICD-10-PCS; principal; 2024-05-09 11:45)
DX: E11.69 Type 2 diabetes mellitus with other specified complication (principal); I42.9 Cardiomyopathy, unspecified; M86.171 Other acute osteomyelitis, right ankle and foot; L03.115 Cellulitis of right lower limb; I50.22 Chronic systolic (congestive) heart failure; I11.0 Hypertensive heart disease with heart failure; L97.514 Non-pressure chronic ulcer of other part of right foot with necrosis of bone; E11.51 Type 2 diabetes mellitus with diabetic peripheral angiopathy without gangrene; Z68.39 Body mass index [BMI] 39.0-39.9, adult; E66.01 Morbid (severe) obesity due to excess calories; E11.628 Type 2 diabetes mellitus with other skin complications; E11.42 Type 2 diabetes mellitus with diabetic polyneuropathy; E11.621 Type 2 diabetes mellitus with foot ulcer; Z79.4 Long term (current) use of insulin; I25.10 Atherosclerotic heart disease of native coronary artery without angina pectoris; E78.5 Hyperlipidemia, unspecified; L03.031 Cellulitis of right toe; Z79.84 Long term (current) use of oral hypoglycemic drugs; Z51.5 Encounter for palliative care; Z87.891 Personal history of nicotine dependence; Z66 Do not resuscitate; Z79.82 Long term (current) use of aspirin; B95.2 Enterococcus as the cause of diseases classified elsewhere
CPT/HCPCS: 36415; 73630; 80048; 80053; 80076; 80202; 82962; 83036; 83605; 83735; 84443; 85025; 85610; 85652; 85730; 86140; 87040; 87070; 87075; 87077; 87186; 87205; 87640; 88305; 88311; 93005; 93923; 94668; 97162; 97802; 99252; 99284; J7030; J7040; J7050; J7120; A4216; G0463; J2405

== ENCOUNTER → 2024-12-12 | Outpatient (CLI) | payer OTHER, SELFPAY ==
--- NOTE | 2024-12-12 12:58 | ECHOD_ITS ---
Reason For Study Reason For Study: DCM Procedure This was a 2D Doppler, Color Flow transthoracic echocardiogram. The study was technically difficult. DEFINITY ALLERGY. Exam performed in department. Left Ventricle Normal LV size. The left ventricular ejection fraction is 45 %. Mid-Posterior: Hypokinetic. Infero-Basal: Severely Hypokinetic. Basal inferoseptal: Hypokinetic. There are regional wall motion abnormalities as specified. Right Ventricle Normal RV size. Normal systolic function. Atria Normal left atrium. Normal right atrium. Mitral Valve There is moderate mitral annular calcification. Tricuspid Valve Normal tricuspid valve. Aortic Valve Trisinus/trileaflet aortic valve. Mild focal aortic valve calcification. Pulmonic Valve Normal pulmonic valve. Great Vessels Normal aortic root. Pericardium/Pleural No pericardial effusion. MMode/2D Measurements & Calculations LVIDd: 6.1 cm IVSd: 1.0 cm LVOT diam: 2.7 cm LVIDs: 4.9 cm LVPWd: 1.2 cm LVOT area: 5.8 cm2 RVDd: 3.8 cm FS: 19.3 % Ao root diam: 3.6 cm LAV(MOD-bp): 50.5 ml LVAd ap4: 42.9 cm2 LAV(MOD-bp) Indexed: 22.0 ml/m2 LVLd ap4: 8.8 cm LAV(MOD-sp2): 43.9 ml EDV(MOD-sp4): 178.7 ml LAV(MOD-sp4): 50.2 ml EDV(sp4-el): 176.6 ml LVAs ap4: 31.9 cm2 LVLs ap4: 8.5 cm ESV(MOD-sp4): 106.7 ml ESV(sp4-el): 101.7 ml EF(MOD-sp4): 40.3 % EF(sp4-el): 42.4 % LVAd ap2: 36.3 cm2 SV(MOD-sp4): 72.1 ml SV(MOD-sp2): 56.7 ml LVLd ap2: 8.9 cm SI(MOD-sp4): 31.4 ml/m2 SI(MOD-sp2): 24.7 ml/m2 EDV(MOD-sp2): 128.9 ml EDV(sp2-el): 126.0 ml LVAs ap2: 25.8 cm2 LVLs ap2: 8.1 cm ESV(MOD-sp2): 72.2 ml ESV(sp2-el): 69.6 ml EF(MOD-sp2): 44.0 % SV(sp4-el): 74.9 ml LA dimension(2D): 4.4 cm LA A4 area: 19.0 cm2 RA A4 area: 15.6 cm2 TAPSE: 1.9 cm Time Measurements MV dec time: 0.24 sec Doppler Measurements & Calculations MV E max david: 59.7 cm/sec Lat Peak E' David: 5.0 cm/sec Med Peak E' David: 5.1 cm/sec MV A max david: 93.3 cm/sec E/E' lat: 11.9 E/E' med: 11.7 MV E/A: 0.64 Ao V2 max: 137.3 cm/sec LV V1 max: 96.4 cm/sec MV dec slope: 251.7 cm/sec2 Ao max P.5 mmHg LV V1 max P.7 mmHg Ao V2 mean: 98.4 cm/sec LV V1 mean P.3 mmHg Ao mean P.4 mmHg LV V1 mean: 72.2 cm/sec Ao V2 VTI: 31.7 cm LV V1 VTI: 22.5 cm AV (velocity ratio): 0.71 ANAID(I,D): 4.1 cm2 ANAID(V,D): 4.1 cm2 SV(LVOT): 131.4 ml PA V2 max: 72.4 cm/sec ECHO/Echo Complete Interpretation Summary The left ventricular ejection fraction is 45 %. Normal LV size. There are regional wall motion abnormalities as specified. There is moderate mitral annular calcification. Ordering Physician: Hawa Worley Referring Physician: Corona Rees Performed By: Rhonda Keith RDCS
== END | disposition home or self-care (01) ==
LOC: CVS 12:58
PROVIDERS: PCP Family Medicine; Referring Provider Physician Assistant Medical; Visit Provider Physician Assistant Medical
DX: I42.0 Dilated cardiomyopathy (principal)
CPT/HCPCS: 93306

== ENCOUNTER → 2025-07-08 | Outpatient (CLI) | payer OTHER, SELFPAY ==
[2025-07-08 13:54] LABS: Pro- Brain NATRIURETIC PEPTIDE 191 pg/mL (<=900)
[2025-07-08 13:57] LABS: Anion Gap 12 (5-15); BUN 24 mg/dL (4-19); BUN/Creat Ratio 23.7 RATIO (10-20); Calcium,Total 9.9 mg/dL (7.6-11.0); Carbon Dioxide 26.8 mmol/L (21.0-32.0); Chloride 102 mmol/L (98-108); Glucose 123 mg/dL (70-99); Potassium 5.0 mmol/L (3.3-5.1)
== END | disposition home or self-care (01) ==
LOC: LAB 11:34
PROVIDERS: PCP Family Medicine; Referring Provider Internal Medicine Cardiovascular Disease; Visit Provider Internal Medicine Cardiovascular Disease
DX: I42.0 Dilated cardiomyopathy (principal)
CPT/HCPCS: 36415; 80048; 83880